=== PATIENT | female | born 2000 | race Caucasian/White ===

== ENCOUNTER 2023-02-09 06:51 | Outpatient (OUT) | payer BC, SELFPAY ==
--- NOTE | 2023-02-09 | US_ITS ---
The [address] [address] Patient Name: DANELLE MISTRY MRN: [id number] date: 2000 Sex: F Assigned Patient Location: US Current Patient Location: US Accession/Order Number: [id number] Exam Date: 02/09/2023 07:02 Report Date: 02/09/2023 12:15 At the request of: Rebecca FOURNIER Procedure: US renal BI EXAM: US renal BI HISTORY: N20.0. History of renal calculi. COMPARISON: None. TECHNIQUE: Ultrasound study of the kidneys was performed. FINDINGS: Right kidney measures 10.7 x 3.9 x 4.3 cm, left kidney measures 11.2 x 4.3 x 4.4 cm in longitudinal, transverse, and AP dimensions. Renal cortical thickness appears grossly unremarkable bilaterally, measuring 1.2 cm in thickness on the right and 1.4 cm in thickness on the left. No obvious solid or cystic renal mass. No evidence of hydronephrosis to suggest obstructive uropathy. Within the inferior aspect of the right kidney there is a 0.5 x 0.3 x 0.3 cm area of increased echogenicity likely representing a nonobstructive calculus. Bladder appears grossly unremarkable without a calculus, mass, or significant wall thickening. US/US renal BI IMPRESSION: Findings compatible with nonobstructive right renal calculus as noted. Electronically authenticated by: DAYANNA ALONZO Date: 02/09/2023 12:15
== END 2023-02-09 06:52 | disposition home or self-care (01) ==
LOC: US 06:58
PROVIDERS: PCP Urology; Visit Provider Family Medicine
DX: N20.0 Calculus of kidney (principal)
CPT/HCPCS: 76775

== ENCOUNTER 2024-10-02 19:07 | Emergency (ER) | payer BC, SELFPAY ==
--- OUTSIDE RECORDS SUMMARY | 2024-09-21 16:00 | XMS_ITS | Encounter Summary ---
Author Organization [facility] Address [address] [facility] [place] [address] Care Team Providers Care Cook Manager Name Role Phone Franky Mcmillan Primary Care Provider [phone] Franky Mcmillan DO Unavailable [phone] Reason for Visit * Reason Comments Care Pt presents to discu ss Anxiety/depression. Pt states when she is away from baby will be anxious. Pt will become tearful randomly. No thoughts of hurting herself or others. Pt currently on Zoloft for anxiety/depression. Pt states getting some sleep. Encounter Details Date Type Department Care Team (Late st Contact Info) Description 09/21/2024 4:00 PM EDT Visit ADINJesica Irving[place]emilie FELICIANO [address] [place] [phone] Mandy Patel DO [address] [facility] [place] [address] anxiety ([facility]) (Primary Dx); Acute vulvitis Social History Tobacco Use Types Packs/Day Years Used Date Smoking Tobacco: Never Passive Smoke Exposure: Never Smokeless Tobacco: Never Alcohol Use Standard Drinks/Week Comments Not Currently 0 (1 standard drink = 0.6 oz pure alcohol) Caffeine intake: 1 cup coffee/daily B1300 Health Literacy Answer Date Recor ded How often do you need to hav e someone help you when you read instructions, pamphlets, or other written material from your doctor or pharmacy? Never 10/19/2023 Humiliation, Afraid, Rape, and Kick questionnair e Answer Date Recorded Within the last year, have y ou been afraid of your partner or ex-partner? No 07/29/2022 Within the last year, have y ou been humiliated or emotionally abused in other ways by your partner or ex-partner? No Within the last year, have y ou been kicked, hit, slapped, or otherwise physically hurt by your partner or ex-partner? No 07/29/2022 Within the last year, have y ou been raped or forced to have any kind of sexual activity by your partner or ex-partner? No 07/29/2022 Social Connection and Isolat ion Panel [NHANES] Answer Date Recorded In a typical week, how many times do you talk on the phone with family, friends, or neighbors? Twice a week 10/19/2023 How often do you get togethe r with friends or relatives? Once a week 10/19/2023 How often do you attend chur or mosque services? More than 4 times per year 10/19/2023 Do you belong to any clubs o r organizations such as christian groups, unions, fraternal or athletic groups, or school groups? No 10/19/2023 How often do you attend meet ings of the clubs or organizations you belong to? Patient declined 10/19/2023 Are you , , di vorced, , never , or living with a partner? 10/19/2023 AUDIT-C Answer Date Recorded Q1: How often do you have a drink containing alc ohol? Monthly or less 10/19/2023 Q2: How many drinks containi ng alcohol do you have on a typical day when you are drinking? 1 or 2 10/19/2023 Q3: How often do you have si x or more drinks on one occasion? Never 10/19/2023 Overall Financial Resource Strain (CARDIA) Answe r Date Recorded How hard is it for you to pa y for the very basics like food, housing, medical care, and heating? Not very hard 10/19/2023 PHQ-2 Answer Date Recorded Patient Health Questionnaire-2 Score 0 05/08/2024 [facility]ational Stress Questionnaire Answer Date Recorded Do you feel stress - tense, restless, nervous, or anxious, or unable to sleep at night because your mind is troubled all the time - these days? Very much 10/19/2023 Exercise Vital Sign Answer Date Recorde d On average, how many days pe r week do you engage in moderate to strenuous exercise (like a brisk walk)? 2 days 10/19/2023 On average, how many minutes do you engage in exercise at this level? 20 min 10/19/2023 Hunger Vital Sign Answer Date Recorded Within the past 12 months, y ou worried that your food would run out before you got the money to buy more. Never true 10/19/19 24 Within the past 12 months, t he food you bought just didn't last and you didn't have money to get more. Never true 10/19/2023 PRAPARE - Transportation Answer Date Re corded In the past 12 months, has l ack of transportation kept you from medical appointments or from getting medications? No 04/2023 In the past 12 months, has l ack of transportation kept you from meetings, work, or from getting things needed for daily living? No 10/19/2023 Housing Stability Vital Sign Answer Ilan e Recorded In the last 12 months, was t here a time when you were not able to pay the mortgage or rent on time? No 07/29/2022 In the last 12 months, how many places have you lived? 1 07/29/2022 In the last 12 months, was t here a time when you did not have a steady place to sleep or slept in a retirement (including now)? No 07/29/2022 Housing Stability Vital Sign Answer Ilan e Recorded In the last 12 months, was t here a time when you were not able to pay the mortgage or rent on time? No 10/19/2023 In the past 12 months, how m any times have you moved where you were living? 0 10/19/2023 At any time in the past 12 m [facility], were you homeless or living in a retirement (including now)? No 10/19/2023 Comments No Sex and Gender Information Value Date Recorded Sex Assigned at Not on file Legal Sex Female 11:08 PM EDT Gender Identity Not on file Sexual Orientation Not on file documented as of this encounter Last Filed Vital Signs Vital Sign Reading Time Taken Comments Blood Pressure 124/74 09/21/2024 4:03 PM EDT Pulse - - Temperature - - Respiratory Rate - - Oxygen Saturation - - Inhaled Oxygen Concentration - - Weight 84.8 kg (187 lb) 09/21/2024 4:03 PM EDT Height - - Body Mass Index 32.1 05/08/2024 11:30 AM EDT documented in this encounter Progress Notes * Mandy Patel DO - 09/21/2024 4:00 PM EDT Images from the original note were not included. Mandy Patel D.O. Obstetrics and Gynecology Patient: Carmelita Guido : 2000 (24 y.o.) Exam Date: 09/21/2024 Reason for Visit - Chief Complaint Patient presents with Care Pt presents to discuss Anxiety/depression. Pt states when she is away from baby will be anxious. Pt will become tearful randomly. No thoughts of hurting herself or others. Pt currently on Zoloft for anxiety/depression. Pt states getting some sleep. Visit Vitals BP 124/74 Wt 187 lb LMP 12/12/2023 Yes BMI 32.10 kg/m?? OB Status Recent Smoking Status Never BSA 1.96 m?? Allergies Allergen Reactions Zinc Hives Bacid Dairy Other Reaction(s): Bowel problem History of Present Illness, Associated Treatments and Results - OB History Para Term AB Living 2 1 1 0 1 1 SAB IAB Ectopic Multiple Live Births 1 0 0 0 1 # Outcome Date GA Lbr Félix/2nd Weight Sex Type Anes PTL Lv 2 Term 09/09/24 38w6d 7 lb 3 oz M Vag-Spont EPI MANDY 1 2023 Obstetric Comments Pap smear 03/07/24 wnl Review of Systems - Const: Denies appetite change, fever, chills. Allergy: Denies medication reaction. Ocular: Denies visual acuity change. ENT: Denies hearing change. Endoc: Denies weight loss. Resp: Denies dyspnoea, wheezing. Cardiac: Denies angina, palpitations. GI: Denies nausea, vomiting. Haem: Denies bleeding. : Denies incontinence. MSK: Denies arthralgias, joint oedema. Derm: Denies rash, hair loss. Neuro: Denies ataxia, tremor. Also see HPI for elements of ROS documented therein and for details of positive findings, which shall supersede the foregoing. Medication Documentation Review Audit Reviewed by Patti Romeo MA (Licensed Practical Nurse) on 09/21/24 at 1600 Medication Order Taking? Sig Documenting Provider Last Dose Status Discontinued 09/21/24 1600 cyanocobalamin (Vitamin B-12) 100 MCG tablet [id number] Take 100 mcg by mouth Daily Mandy Patel DO Active ferrous sulfate 325 (65 Fe) MG tablet [id number] Take 325 mg by mouth in the morning. Take with meals. Active metFORMIN (Glucophage) 500 MG tablet [id number] TAKE ONE TABLET BY MOUTH THREE TIMES A DAY WITH A MEAL Mandy Patel DO Active Vit w/Ax-Sbdscvhcq-FA (PNV PO) [id number] No Take by mouth Mandy Patel DO Taking Active sertraline (Zoloft) 25 MG tablet [id number] Take 1 tablet (25 mg) by mouth Daily Franky Mcmillan, Active Past Medical History: Diagnosis Date Anemia Anxiety Female infertility IBS (irritable bowel syndrome) Leucocytosis Ovarian cyst PMDD (premenstrual dysphoric disorder) Polycystic ovary syndrome Past Surgical History: Procedure Laterality Date COLONOSCOPY VAGINAL DELIVERY 09/09/2024 Family History Problem Relation Name Age of Onset Hypertension Mother Елена Polycystic ovary syndrome Mother Елена Depression Mother Елена Miscarriages / Stillbirths Mother Елена Hyperlipidemia Father Jair Hypertension Father Jair Colon cancer Paternal Grandmother Diabetes Paternal Grandfather Wild Physical Exam - General appearance, mentation, extraocular movements, facial strength and movement, hearing, upper and lower extremity strength and tone, sensation to gross testing, coordination, and gait are normalor at baseline unless noted below. General: Alert, cooperative, no distress, appears stated age Head: Normocephalic, without obvious abnormality, atraumatic Eyes: sclera anicteric Ears: no obvious hearing deficit Skin: Warm and dry Heart: Regular rate Lungs: Respirations unlabored Extremities normal, atraumatic, no cyanosis or edema Diagnoses and all orders for this visit: anxiety ([facility]) - sertraline (Zoloft) 50 MG tablet; Take 1 tablet (50 mg) by mouth Daily Acute vulvitis - nystatin-triamcinolone (Mycolog II) ointment; Apply topically in the morning and before bedtime. Do all this for 7 days. Patient has been taking 25mg of Zoloft- does not help as well anymore. Will increase to 50mg. Patient is also having itching of the vulva- discussed yeast/contact dermatitis with pads. Will send Mycolog. Patient to call with any further questions/concerns. To return in 4 weeks for visit. ICD-10-CM 1. anxiety ([facility]) O99.345 sertraline (Zoloft) 50 MG tablet F41.8 2. Acute vulvitis N76.2 nystatin-triamcinolone (Mycolog II) ointment documented in this encounter Plan of Treatment Upcoming Encounters Date Type Department Care Team (Late st Contact Info) Description 10/19/2024 10:15 AM EDT Visit [facility] [place] [facility] [address] [place] [phone] Mandy Patel DO [address] [place] [address] documented as of this encounter Visit Diagnoses Diagnosis anxiety ([facility])- Primary Acute vulvitis Unspecified vaginitis and vulvovaginitis documented in this encounter Care Teams Cook Manager Relationship Specialty Start Date End Date Franky Mcmillan DO [address] [place] [address] PCP - General Family Medicine 07/16/22 Franky Mcmillan DO [address] [place] [address] PCP - Anselmo Commercial 05/16/21 documented as of this encounter
[2024-10-02 19:19] VITALS: BP 134/92; PULSE 82; TEMP 37; O2SAT 96; BMI 32.4
--- NOTE | 2024-10-02 19:38 | CT_ITS ---
The [address] [address] Patient Name: DANELLE MISTRY MRN: [id number] date: 2000 Sex: F Assigned Patient Location: ER Current Patient Location: ED.MAIN Accession/Order Number: [id number] Exam Date: 10/02/2024 20:06 Report Date: 10/02/2024 20:11 At the request of: DELROY HDEZ Procedure: CT abdomen pelvis wo con CT Abdomen and Pelvis withoutcontrast TECHNIQUE: Axial imaging with 2-D reconstruction. . The CT exam was performed using one or more the following dose reduction techniques: Automated exposure control, adjustment of the MA and/or Kv according to patient size, or use of the iterative reconstruction technique. COMPARISON: None History: Right flank pain for 3 weeks . LIMITATIONS: None LOWER THORAX Unremarkable LIVER: Unremarkable GALLBLADDER: No gallbladder abnormality identified. BILE DUCTS: No dilatation SPLEEN: Unremarkable PANCREAS: Unremarkable ADRENAL GLANDS: Unremarkable KIDNEYS:8 x 6 mm proximal right ureteral stone. Moderate hydronephrosis. Normal left kidney. AORTA: No abdominal aortic aneurysm identified. RETROPERITONEUM: No significant retroperitoneal abnormalities identified. MESENTERY:Unremarkable STOMACH:Unremarkable SMALL BOWEL: The small bowel loops are nondistended. APPENDIX: No appendiceal dilatation. No no adjacent inflammation. Distal appendicolith. COLON: Unremarkable URINARY BLADDER: Urinary bladder is unremarkable. REPRODUCTIVE SYSTEM: Reproductive structures are unremarkable. PNEUMOPERITONEUM: None PERITONEAL FLUID:None BONY STRUCTURES: Unremarkable ABDOMINAL WALL: Unremarkable CT/CT abdomen pelvis wo con IMPRESSION: Obstructing 8 x 6 mm proximal right ureteral stone with moderate hydronephrosis. Impression dictated by: Iftikhar Gibson M.D. 10/02/2024 8:11 PM Dictation Location: [employer] Electronically authenticated by: [id number] Y Date: 10/02/2024 20:11
--- OUTSIDE RECORDS SUMMARY | 2024-10-02 19:41 | XMS_ITS | Encounter Summary ---
Author Organization [facility] Address [address] [place] [address] Care Team Providers Care Filling Machine Operator Name Role Phone Franky Mcmillan DO Primary Care Provider [phone] Franky Mcmillan DO Unavailable [phone] Encounter Details Date Type Department Care Team (Late st Contact Info) Description 09/29/2024 Abstract [facility] [place] [facility] [address] [place] [phone] Franky Mcmillan DO [address] [place] [address] Social History Tobacco Use Types Packs/Day Years [...] How often do you attend chur or druze services? More than 4 times per year 10/19/2023 Do you belong to any clubs o r organizations such as rastafari groups, unions, fraternal or athletic groups, or [...] Recorded Patient Health Questionnaire-2 Score 0 05/08/2024 [facility] - Occupational Stress Questionnaire Answer [...] place to sleep or slept in a care home (including now)? No 07/29/2022 Housing Stability Vital Sign Answer Ilan e Recorded In the last 12 months, was t here a time when you were not able to pay the mortgage or rent on time? No 10/19/2023 In the past 12 months, how m any times have you moved where you were living? 0 10/19/2023 At any time in the past 12 m onths, were you homeless or living in a care home (including now)? No 10/19/2023 Comments No Sex and Gender Information Value Date Recorded Sex Assigned at Not on file Legal Sex Female 11:08 PM EDT Gender Identity Not on file Sexual Orientation Not on file documented as of this encounter Plan of Treatment Upcoming Encounters Date Type Department Care Team (Late st Contact Info) Description 10/19/2024 10:15 AM EDT Visit [facility] [place] [facility] [address] [place] [address] Mandy Patel DO [address] [place] [address] documented as of this encounter Visit Diagnoses Not on filedocumented in this encounter Care Teams Filling Machine Operator Relationship Specialty Start Date End Date Franky Mcmillan DO [address] [facility] [address] [place] [address] PCP - General Family Medicine 07/16/22 Franky Mcmillan DO [address] [facility] [address] [place] [address] PCP - Anselmo Mcneill 05/16/21 documented as of this encounter
--- OUTSIDE RECORDS SUMMARY | 2024-10-02 19:41 | XMS_ITS | Clinical Summary ---
Author Organization [facility] Address [address] [place] [address] Care Team Providers Care Recreation Program Specialist Name Role Phone Unavailable Primary Care Provider Unavailabl e Allergies No known active allergies Medications metFORMIN (GLUCOPHAGE) 500 mg tablet One tablet three times daily with meals. 11/18/2022 Active sertraline (ZOLOFT) 25 mg tablet Take 25 mg by mouth. 11/16/2023 Active ferrous sulfate (IRON) 325 mg (65 mg iron) tablet Take 1 tablet by mouth two times a day. 01/21/2024 Active Scoauksd-Jd-Mfq- Fe-FA tab Take 1 tablet by mouth once daily. 01/21/2024 Active Active Problems Problem Noted Date Diagnosed Date Obesity, Class I, BMI 30-34.9 12/14/2023 Comments Yes Family History Medical History Relation Comments Colon Cancer Paternal Grandfather Relation Status Comments Paternal Grandfather Social History Tobacco Use Types Packs/Day Years Used Date Smoking Tobacco: Never Smokeless Tobacco: Never Tobacco Cessation:Counseling Given: Not Answered Area Deprivation Index Answer Date Rodolfo rded National Score (1-100), lower number is lower ri sk 53 12/13/2023 State Score (1-10), lower number is lower risk 3 12/13/2023 Data from: https://www.neighborhoodatlas.medicine.[facility].edu/. Last address used for calculation [address] 12/13/2023 Comments Yes Sex and Gender Information Value Date Recorded Sex Assigned at Not on file Legal Sex Female 2:39 PM EDT Gender Identity Not on file Sexual Orientation Not on file Last Filed Vital Signs Vital Sign Reading Time Taken Comments Blood Pressure 139/95 12/13/2023 1:56 PM EDT Pulse - - Temperature - - Respiratory Rate - - Oxygen Saturation - - Inhaled Oxygen Concentration - - Weight 80.7 kg (178 lb) 12/21/2023 10:44 AM EST Height 160 cm (5' 3 ) 12/21/2023 10:44 AM EST Body Mass Index 31.53 12/21/2023 10:44 AM EST Plan of Treatment Health Maintenance Due Date Last Done Comments Peds To Adult Transition Ini tial Discussion 2011 Peds To Adult Transition Aurea ual Assessment 05/19/2013 HPV Vaccine (1 - 3-dose series) 05/19/2014 Anxiety Screening 05/19/2017 Depression Screening 05/19/2017 Cervical Cancer Screening 05/19/2020 DTaP,Tdap,Td Vaccine (7 - Td or Tdap) 09/17/2021 09/18/2011, 08/21/2004, 06/17/2000, Additional history exists Influenza Vaccine (#1) 2024 8, 02/04/2009, 02/04/2009, Additional history exists RSV Vaccine (1 - 1-dose 75+ series) 05/19/2074 Hepatitis B Vaccine Completed 2000, 1999, 1999 HIV Screening Completed 12/13/2023 Hepatitis C Screening Completed 12/13/2023 Procedures Procedure Name Priority Date/Time Associated Diagnosis Comments HIV 1/2 COMBO WITH REFLEX TO DIFFERENTIATION Routine 12/13/2023 2:46 PM EDT Encounter of female for testing for genetic disease carrier status for procreative management HEPATITIS C ANTIBODY IA WITH CONFIRMATION Routine 12/13/2023 2:46 PM EDT Encounter of female for testing for genetic disease carrier status for procreative management from Last 3 Months or Most Recently Relevant to Health Maintenance Results * HIV 1/2 COMBO WITH REFLEX TO DIFFERENTIATION (12/13/2023 2:46 PM EDT) HIV 12 Combo (Ag/Ab) Nonreactive Nonreactive 12/14/2023 10:[address] [facility] HIV-1/2 AB (Confirmatory) 12/14/2023 10:[address] [facility] Comment:Test not indicated. HIV Interpretation 12/14/2023 10:[address] [facility] Comment: No evidence of HIV-1 or HIV-2 infection. Should recent infection be suspected, repeat testing may be considered 2-3 weeks after this draw. [place] Rev. Code 3701.243(E): This information has been disclosed to you from confidential records protected from disclosure by state law. You shall make no further disclosure of this information without the specific, written, and informed release of the individual to whom it pertains or as otherwise permitted by state law. A general authorization for the release of medical or other information is not sufficient for the purpose of the release of HIV test results or diagnoses. Blood BLOOD SPECIMEN / Unknown Venipuncture / Unknown 12/13/2023 2:46 PM EDT 12/13/2023 2:46 PM EDT us Marina Arthur MD LABORATORY Final Resu lt Performing Organization Address [facility]/ZIP Co de Phone Number [facility] [address] [place] [address], * HEPATITIS C ANTIBODY IA WITH CONFIRMATION (12/13/2023 2:46 PM EDT) Hep C Antibody IA Negative Negative 12/14/2023 10:[address] [facility] Comment:The result suggests no evidence of active infection with Hepatitis C virus. Should recent infection be suspected, repeat testing may be considered 4-6 weeks after this draw. Blood BLOOD SPECIMEN / Unknown Venipuncture / Unknown 12/13/2023 2:46 PM EDT 12/13/2023 2:46 PM EDT Marina Arthur MD LABORATORY Final Resu lt Performing Organization Address City/[facility]/ZIP Co de Phone Number [facility] [address] [place] [phone], from Last 3 Months or Most Recently Relevant to Health Maintenance Insurance BLUE CARD PPO OOS BLUE ACCESS PPO
--- OUTSIDE RECORDS SUMMARY | 2024-10-02 19:41 | XMS_ITS | Encounter Summary ---
Author Organization [facility] Address [address] [place] [address] Care Team Providers Care Blocker And Polisher Name Role Phone Unavailable Primary Care Provider Unavailabl e Source Comments In the event this information is protected by the Federal Confidentiality of Alcohol and Drug AbusePatient Records regulations: The Federal rules restrict any use of the information to criminally investigate or prosecute any alcohol or drug abuse patient.[facility] Encounter Details Date Type Department Care Team (Late st Contact Info) Description 01/21/2024 Patient Msg Reproductive Endocrinology Infertility [address] [place] [address] Sara Campbell, ANNA.TICKET MANAGER [address] [place] [address] Nausea Relief Social History Tobacco Use Types Packs/Day Years Used Date Smoking Tobacco: Never Smokeless Tobacco: Never Area Deprivation Index Answer Date Rodolfo rded National Score (1-100), lower number is lower ri sk 53 12/13/2023 State Score (1-10), lower number is lower risk 3 12/13/2023 Data from: https://www.neighborhoodatlas.medicine.[facility].edu/. Last address used for calculation [address] 12/13/2023 Comments No Sex and Gender Information Value Date Recorded Sex Assigned at Not on file Legal Sex Female 2:39 PM EDT Gender Identity Not on file Sexual Orientation Not on file documented as of this encounter Plan of Treatment Not on file documented as of this encounter Visit Diagnoses Not on filedocumented in this encounter
--- OUTSIDE RECORDS SUMMARY | 2024-10-02 19:41 | XMS_ITS | Encounter Summary ---
Author Organization [facility] Address [address] [place] [address] Care Team Providers Care Nozzle Operator Name Role Phone Franky Mcmillan DO Primary Care Provider [phone] Franky Mcmillan DO Unavailable [phone] Encounter Details Date Type Department Care Team (Late st Contact Info) Description 09/11/2024 Results Follow-Up ALEXANDRIA FELICIAON [address] [place] [phone] Corina Hernandez MD [address] [place] [address] Urine culture Social History Tobacco Use Types Packs/Day Years [...] How often do you attend chur or buddhism services? More than 4 times per year 10/19/2023 Do you belong to any clubs o r organizations such as jew groups, unions, fraternal or athletic groups, or [...] Recorded Patient Health Questionnaire-2 Score 0 05/08/2024 [facility] - Occupational Stress [...] any time in the past 12 m [facility], were you homeless or living in a care home (including now)? No 10/19/2023 Comments Yes Sex and Gender Information Value [...] FELICIANO [address] [place] [address] Mandy Patel DO [address] [place] [address] documented as of this encounter Visit Diagnoses Not on filedocumented in this encounter Care Teams Nozzle Operator Relationship Specialty Start Date End Date Franky Mcmillan DO [address] [place] [address] PCP - General Family Medicine 07/16/22 Franky Mcmillan DO [address] [facility] [address] [place] [address] PCP - Anselmo Mcneill 05/16/21 documented as of this encounter
--- OUTSIDE RECORDS SUMMARY | 2024-10-02 19:41 | XMS_ITS | Encounter Summary ---
Author Organization [facility] Address [address] [place] [address] Care Team Providers Care Day Worker Name Role Phone Franky Mcmillan DO Primary Care Provider [phone] Franky Mcmillan DO Unavailable [phone] Encounter Details Date Type Department Care Team (Late st Contact Info) Description 02/23/2024 Abstract [facility] [address] [place] [address] Franky Mcmillan DO [address] [place] [address] Social History Tobacco Use Types Packs/Day Years [...] How often do you attend chur or sikhism services? More than 4 times per year 10/19/2023 Do you belong to any clubs o r organizations such as latter-day groups, unions, fraternal or athletic groups, or [...] Answer Date Recorded Patient Health Questionnaire-2 Score 2 10/20/2023 [facility] - Occupational [...] place to sleep or slept in a fdc (including now)? No 07/29/2022 Housing Stability Vital [...] were you homeless or living in a fdc (including now)? No 10/19/2023 Comments Yes Sex [...] FELICIANO [address] [place] [address] Mandy Patel DO [address] [place] [address] documented as of this encounter Visit Diagnoses Not on filedocumented in this encounter Care Teams Day Worker Relationship Specialty Start Date End Date Franky Mcmilaln DO [address] [facility] [address] [place] [address] PCP - General Family Medicine 07/16/22 Franky Mcmillan DO [address] [facility] [address] [place] [address] PCP - Anselmo Mcneill 05/16/21 documented as of this encounter
--- OUTSIDE RECORDS SUMMARY | 2024-10-02 19:41 | XMS_ITS | Encounter Summary ---
Author Organization [facility] Address [address] [place] [address] Care Team Providers Care Swine Nutritionist Name Role Phone Unavailable Primary Care Provider Unavailabl e Source Comments In the event this information is protected by the Federal Confidentiality of Alcohol and Drug AbusePatient Records regulations: The Federal rules restrict any use of the information to criminally investigate or prosecute any alcohol or drug abuse patient.[facility] Encounter Details Date Type Department Care Team (Latest Contact Info) Description 12/22/2023 Get Medical Advice Reproductive Endocrinology Infertility [address] [place] [address] [place] [address] [place], [place] [phone] Ultrasound and [facility] Social History Tobacco Use Types Packs/Day Years Used Date Smoking Tobacco: Never Smokeless Tobacco: Never Area Deprivation Index Answer Date Rodolfo rded National Score (1-100), lower number is lower ri sk 53 12/13/2023 State Score (1-10), lower number is lower risk 3 12/13/2023 Data from: https://www.neighborhoodatlas.medicine.[facility].edu/. Last address used for calculation [address] [...]
--- OUTSIDE RECORDS SUMMARY | 2024-10-02 19:41 | XMS_ITS | Encounter Summary ---
Author Organization [facility] Address [address] [place] [address] Care Team Providers Care Athletic Equipment Manager Name Role Phone Franky Mcmillan DO Primary Care Provider [phone] Franky Mcmillan DO Unavailable [phone] Encounter Details Date Type Department Care Team (Late st Contact Info) Description 09/29/2024 [facility] [address] [place] [address] Franky Mcmillan DO [address] [place] [address] Social History Tobacco Use Types Packs/Day Years [...] How often do you attend chur or zoroastrianism services? More than 4 times per year 10/19/2023 Do you belong to any clubs o r organizations such as muslim groups, unions, fraternal or athletic groups, or [...] Recorded Patient Health Questionnaire-2 Score 0 05/08/2024 [facility] Occup[facility] ional Health - Occupational [...] place to sleep or slept in a chcf (including now)? No 07/29/2022 Housing Stability Vital Sign Answer Ilna e Recorded In the last 12 months, was t here a time when you were not able to pay the mortgage or rent on time? No 10/19/2023 In the past 12 months, how m any times have you moved where you were living? 0 10/19/2023 At any time in the past 12 m onths, were you homeless or living in a chcf (including now)? No 10/19/2023 Comments No Sex [...] FELICIANO [address] [place] [address] Mandy Patel DO [address] [place] [address] documented as of this encounter Visit Diagnoses Not on filedocumented in this encounter Care Teams Athletic Equipment Manager Relationship Specialty Start Date End Date Franky Mcmillan DO [address] [facility] [address] [place] [address] PCP - General Family Medicine 07/16/22 Franky Mcmillan DO [address] [facility] [address] [place] [address] PCP - Anselmo Mcneill 05/16/21 documented as of this encounter
--- OUTSIDE RECORDS SUMMARY | 2024-10-02 19:41 | XMS_ITS | Encounter Summary ---
Author Organization [facility] Address [address] [place] [address] Care Team Providers Care County Extension Agent Name Role Phone Franky Mcmillan DO Primary Care Provider [phone] Franky Mcmillan DO Unavailable [phone] Encounter Details Date Type Department Care Team (Late st Contact Info) Description 07/02/2024 External Result Encounter [facility] External Department Unsolicited Corina Hernandez MD [address] [place] [address] Social History Tobacco Use Types Packs/Day Years [...] How often do you attend chur or rastafari services? More than 4 times per year 10/19/2023 Do you belong to any clubs o r organizations such as moravian groups, unions, fraternal or athletic groups, or [...] Recorded Patient Health Questionnaire-2 Score 0 05/08/2024 [facility] ional [facility] - [...] place to sleep or slept in a senior care (including now)? No 07/29/2022 Housing Stability Vital Sign Answer Ilan e Recorded In the last 12 months, was t here a time when you were not able to pay the mortgage or rent on time? No 10/19/2023 In the past 12 months, how m any times have you moved where you were living? 0 10/19/2023 At any time in the past 12 m ont, were you homeless or living in a senior care (including now)? No 10/19/2023 Comments Yes Sex [...] FELICIANO [address] [place] [address] Mandy Patel DO [address] [place] [address] documented as of this encounter Procedures Procedure Name Priority Date/Time Associated Diagnosis Comments US ABDOMEN LIMITED 07/02/2024 9: 58 AM EDT documented in this encounter Results * US abdomen limited (07/02/2024 9:58 AM EDT) Anatomical Region Laterality Modality Abdomen Ultrasound 07/02/2024 9:58 AM EDT Impressions 07/02/2024 10:01 AM EDT Unremarkable exam Impression dictated by: Iftikhar Gibson M.D. 07/02/2024 9:58 AM Dictation Location: [facility] Tech: Margie Charles Transcribed By: GLORIA 07/02/24957 Dictated By: Iftikhar Gibson DO 07/02/2458 Signed By: <Electronically signed by Iftikhar Gibson DO in OV> 07/02/24 0958 Narrative 07/02/2024 10:01 AM EDT [facility] Main [address] [address] Ultrasound Report Signed Patient: Carmelita Guido MR#: [id number] 64 : 2000 Acct:[id number] Age/Sex: 24 / F ADM Date: 07/01/24 Loc: E3 Room: Type: [facility] Attending Dr: Corina Hernandez MD Ordering Provider: MINNA Santillan Date of Service: 07/01/24 US/US abdomen limited: right upper abdominal pain Copies to: MINNA Santillan LIMITED ABDOMINAL ULTRASOUND WITH ASSESSMENT OF RIGHT UPPER QUADRANT HISTORY: Right upper quadrant pain. COMPARISON: None Negative ultrasound Cardoso's sign reported. COMMON BILE DUCT: Normal caliber. No intraluminal abnormality. LIVER CONTOUR: Normal. LIVER PARENCHYMA: Normal echogenicity HEPATIC LESION: None INTRAHEPATIC BILIARY DUCTAL DILATATION No ductal dilatation identified. GALLSTONES: No shadowing gallstones. GALLBLADDER SLUDGE: No gallbladder sludge. GALLBLADDER WALL: Normal thickness PERICHOLECYSTIC FLUID: None Pancreas: Unremarkable PORTAL VEIN: Normal blood flow. Liver size: Normal No RIGHT hydronephrosis identified. US/US abdomen limited Procedure Note Radiology, Radiologist, - 07/02/2024 [facility] [address] [address] Ultrasound Report Signed Patient: Carmelita Guido RMR#: [id number] 64 : 2000Acct:[id number] Age/Sex: 24 FADM Date: 07/01/24 Loc: E3 Room:Type: [facility] Attending Dr: Corina Hernandez MD Ordering Provider: Corina Hernandez MD-[facility] Date of Service: 07/01/24 US/US abdomen limited: right upper abdominalpain Copies to: Corina Hernandez MD-[facility] LIMITED ABDOMINAL ULTRASOUND WITH ASSESSMENT OF RIGHT UPPER QUADRANT HISTORY: Right upper quadrant pain. COMPARISON: None Negative ultrasound Cardoso's sign reported. COMMON BILE DUCT: Normal caliber. No intraluminal abnormality. LIVER CONTOUR: Normal. LIVER PARENCHYMA: Normal echogenicity HEPATIC LESION: None INTRAHEPATIC BILIARY DUCTAL DILATATION No ductal dilatation identified. GALLSTONES: No shadowing gallstones. GALLBLADDER SLUDGE: No gallbladder sludge. GALLBLADDER WALL: Normal thickness PERICHOLECYSTIC FLUID: None Pancreas: Unremarkable PORTAL VEIN: Normal blood flow. Liver size: Normal No RIGHT hydronephrosis identified. US/US abdomen limited IMPRESSION: Unremarkable exam Impression dictated by: Iftikhar Gibson M.D. 07/02/2024 9:58 AM Dictation Location: [place] [address] Tech: Margie Soto Transcribed By: GLORIA 07/02/24 0958 Dictated By: Iftikhar Gibson DO 07/02/24 0958 Signed By: <Electronically signed by Iftikhar Gibson DO in OV> 07/02/24 0958 us Corina Hernandez MD IMG US PROCEDURES Final Result documented in this encounter Visit Diagnoses Not on filedocumented in this encounter Care Teams County Extension Agent Relationship Specialty Start Date End Date Franky Mcmillan DO [address] [place] [address] PCP - General Family Medicine 07/16/22 Franky Mcmillan DO [address] [place] [address] PCP - [employer] 05/16/21 documented as of this encounter
--- OUTSIDE RECORDS SUMMARY | 2024-10-02 19:41 | XMS_ITS | Encounter Summary ---
Author Organization [facility] Address [address] [place] [address] Phone Care Team Providers Care Brand Representative Name Role Phone Marvin Bartlett MD Primary Care Provider [phone] Encounter Details Date Type Department Care Team (Late st Contact Info) Description 09/11/2024 [facility] [address] [facility] [place] [phone] Marvin Bartlett MD [address] [facility] [address] [facility] [place] [address] Social History Tobacco Use Types Packs/Day Years Used Date Smoking Tobacco: Never Assessed Comments Unknown Sex and Gender Information Value Date Recorded Sex Assigned at Not on file Legal Sex Female 10:19 AM EDT Gender Identity Not on file Sexual Orientation Not on file documented as of this encounter Plan of Treatment Not on file documented as of this encounter Visit Diagnoses Not on filedocumented in this encounter Care Teams Brand Representative Relationship Specialty Start Date End Date Marvin Bartlett MD [address] [facility] [place] [address] PCP - General Pediatrics 09/11/24 documented as of this encounter
--- OUTSIDE RECORDS SUMMARY | 2024-10-02 19:41 | XMS_ITS | Encounter Summary ---
Author Organization [facility] Address [address] [place] [address] Care Team Providers Care Area Counselor Name Role Phone Unavailable Primary Care Provider Unavailabl e Source Comments In the event this information is protected by the Federal Confidentiality of Alcohol and Drug AbusePatient Records regulations: The Federal rules restrict any use of the information to criminally investigate or prosecute any alcohol or drug abuse patient.[facility] Encounter Details Date Type Department Care Team (Late st Contact Info) Description 01/19/2024 Get Medical Advice Reproductive Endocrinology Infertility [address] [place] [address] Sara Campbell, ANNA.IT SECURITY ANALYST [address] [place] [address] Social History Tobacco Use Types Packs/Day Years Used Date Smoking Tobacco: Never Smokeless Tobacco: Never Area Deprivation Index Answer Date Rodolfo rded National Score (1-100), lower number is lower ri sk 53 12/13/2023 State Score (1-10), lower number is lower risk 3 12/13/2023 Data from: https://www.neighborhoodatlas.medicine.[facility].edu/. Last address used for calculation [address] 12/13/2023 Comments No Sex and Gender Information Value Date Recorded Sex Assigned at Not on file Legal Sex Female 2:39 PM EDT Gender Identity Not on file Sexual Orientation Not on file documented as of this encounter Plan of Treatment Not on file documented as of this encounter Visit Diagnoses Diagnosis Treatment plan provided- Primary documented in this encounter
--- OUTSIDE RECORDS SUMMARY | 2024-10-02 19:41 | XMS_ITS | Encounter Summary ---
Author Organization [facility] Address [facility] [place] [place] [address] Care Team Providers Care Flow Specialist Name Role Phone Unavailable Primary Care Provider Unavailabl e Source Comments In the event this information is protected by the Federal Confidentiality of Alcohol and Drug AbusePatient Records regulations: The Federal rules restrict any use of the information to criminally investigate or prosecute any alcohol or drug abuse patient.[facility] Encounter Details Date Type Department Care Team (Late st Contact Info) Description 09/14/2023 [place] [address] Provider, [facility] Welcome to the [facility] Social History Tobacco Use Types Packs/Day Years [...]
--- OUTSIDE RECORDS SUMMARY | 2024-10-02 19:41 | XMS_ITS | Encounter Summary ---
Author Organization [facility] Address [address] [place] [address] Care Team Providers Care Wireless Technician Name Role Phone Franky Mcmillan DO Primary Care Provider [phone] Franky Mcmillan DO Unavailable [phone] Encounter Details Date Type Department Care Team (Late st Contact Info) Description 09/16/2023 External Result Encounter [facility] External Department Unsolicited Mandy Patel DO [address] [place] [address] Social History Tobacco Use Types Packs/Day Years Used Date Smoking Tobacco: Never Passive Smoke Exposure: Never Smokeless Tobacco: Never Alcohol Use Standard Drinks/Week Comments Not Currently 0 (1 standard drink = 0.6 oz pur e alcohol) Caffeine intake: none Humiliation, Afraid, Rape, and Kick questionnair e [...] family, friends, or neighbors? Twice a week 07/29/2022 How often do you get togethe r with friends or relatives? Twice a week 07/29/2022 How often do you attend chur or episcopalian services? More than 4 times per year 07/29/2022 Do you belong to any clubs o r organizations such as christianity groups, unions, fraternal or athletic groups, or school groups? Yes 07/29/2022 How often do you attend meet ings of the clubs or organizations you belong to? More than 4 times per year 07/29/2022 Are you , , di vorced, , never , or living with a partner? 07/29/2022 AUDIT-C Answer Date Recorded Q1: How often do you have a drink containing alc ohol? Monthly or less 07/29/2022 Q2: How many drinks containi ng alcohol do you have on a typical day when you are drinking? 1 or 2 07/29/2022 Q3: How often do you have si x or more drinks on one occasion? Never 07/29/2022 Overall Financial Resource Strain (CARDIA) Answe r Date Recorded How hard is it for you to pa y for the very basics like food, housing, medical care, and heating? Not hard at all 07/29/2022 PHQ-2 Answer Date Recorded Patient Health Questionnaire-2 Score 0 03/11/2023 [facility]ational Stress Questionnaire Answer Date Recorded Do you feel stress - tense, restless, nervous, or anxious, or unable to sleep at night because your mind is troubled all the time - these days? To some extent 07/29/2022 Exercise Vital Sign Answer Date Recorde d On average, how many days pe r week do you engage in moderate to strenuous exercise (like a brisk walk)? 2 days On average, how many minutes do you engage in exercise at this level? Patient declined 07/29/2022 Hunger Vital Sign Answer Date Recorded Within the past 12 months, y ou worried that your food would run out before you got the money to buy more. Never true 07/30/19 23 Within the past 12 months, t he food you bought just didn't last and you didn't have money to get more. Never true 07/29/2022 PRAPARE - Transportation Answer Date Re corded In the past 12 months, has l ack of transportation kept you from medical appointments or from getting medications? No 07/16 In the past 12 months, has l ack of transportation kept you from meetings, work, or from getting things needed for daily living? No 07/29/2022 Housing Stability Vital Sign Answer [...] place to sleep or slept in a group home (including now)? No 07/29/2022 Comments Unknown Sex and Gender Information Value Date Recorded Sex Assigned at Not on file Legal Sex Female 11:08 PM EDT Gender Identity Not on file Sexual Orientation Not on file documented as of this encounter Plan of Treatment Upcoming Encounters Date Type Department Care Team (Late st Contact Info) Description 10/19/2024 10:15 AM EDT Visit ALEXANDRIA FELICIANO [address] [place] [phone] Mandy Patel DO [address] [place] [address] documented as of this encounter Procedures Procedure Name Priority Date/Time Associated Diagnosis Comments XR HYSTEROSALPINGOGRAM 11:56 AM EDT documented in this encounter Results * XR hysterosalpingogram (09/16/2023 11:56 AM EDT) Anatomical Region Laterality Modality Uterus Radiographic Génesis ging 09/16/2023 11:5 6 AM EDT Narrative 09/16/2023 12:01 PM EDT [facility] Main [address] [address] Fluoroscopy Report Signed Patient: Carmelita Guido MR#: [id number] 64 : 2000 Acct:[id number] Age/Sex: 23 / F ADM Date: 09/16/23 Loc: XD Room: Type: [facility] Attending Dr: Mandy Patel DO Copies to: Mandy Patel DO Ordering Provider: Mandy Patel DO Date of Service: 09/16/23 FL/FL hysterosalpingography: N97.0 Hysterosalpingogram. Reason for exam: Fertility testing. Comparison: None. FINDINGS: Examination was performed by the POSTAL DELIVERY OFFICER service. No radiologist was present at time of procedure. Uterus configuration is normal. There is opacification of both fallopian tubes with what appears to be spillage into the peritoneum. Cumulative Air Kerma in mGy: 20.23 mGy FL/FL hysterosalpingography Impression: Unremarkable HSG. Impression dictated by: Jayy Rose Jr., D.OAdriana09/16/2023 11:58 AM Dictation Location: [place] [address] Transcribed By: [facility] 09/16/23 1158 Dictated By: Jayy Rose Jr, DO 09/16/23 1156 Signed By: <Electronically signed by Jayy Rose Jr, DO in OV> 09/16/23 1158 Procedure Note Radiology, Radiologist, - 09/16/2023 [facility] [place] [address] Fluoroscopy Report Signed Patient: Carmelita Guido RMR#: [id number] 64 : 2000Acct:[id number] Age/Sex: 23 / FADM Date: 09/16/23 Loc: XD Room:Type: [facility] Attending Dr: Mandy Patel DO Copies to: Mandy Patel DO Ordering Provider: Mandy Patel DO Date of Service: 09/16/23 FL/FL hysterosalpingography: N97.0 Hysterosalpingogram. Reason for exam: Fertility testing. Comparison: None. FINDINGS: Examination was performed by the POSTAL DELIVERY OFFICER service. No radiologistwas present at time of procedure. Uterus configuration is normal. There is opacification of both fallopiantubes with what appears to be spillage into the peritoneum. Cumulative Air Kerma in mGy: 20.23 mGy FL/FL hysterosalpingography Impression: Unremarkable HSG. Impression dictated by: Jayy Rose Jr., D.O.09/16/2023 11:58 AM Dictation Location: [place] [address] Transcribed By: [facility] 09/16/23 1158 Dictated By: Jayy Rose Jr, DO 09/16/23 1156 Signed By: <Electronically signed by Jayy Rose Jr, DO inOV> 09/16/23 1158 Mandy Patel DO IMG XR PROCEDURES Final Res ult documented in this encounter Visit Diagnoses Not on filedocumented in this encounter Care Teams Wireless Technician Relationship Specialty Start Date End Date Franky Mcmillan DO [address] [place] [address] PCP - General Family Medicine 07/16/22 Franky Mcmillan DO [address] [place] [address] PCP - Anselmo Mcneill 05/16/21 documented as of this encounter
--- OUTSIDE RECORDS SUMMARY | 2024-10-02 19:41 | XMS_ITS | Encounter Summary ---
Author Organization [facility] Address [address] [place] [address] Care Team Providers Care Crop Grain Or Livestock Farmer Name Role Phone Franky Mcmillan DO Primary Care Provider [phone] Franky Mcmillan DO Unavailable [phone] Encounter Details Date Type Department Care Team (Late st Contact Info) Description 08/03/2024 Abstract [facility] [place] [facility] [address] [place] [phone] Franky Mcmillan DO [address] [place] [address] Social History Tobacco Use Types Packs/Day Years [...] How often do you attend chur or yarsanism services? More than 4 times per year 10/19/2023 Do you belong to any clubs o r organizations such as anglican groups, unions, fraternal or athletic groups, or [...] Recorded Patient Health Questionnaire-2 Score 0 05/08/2024 [facility] - Occupational [...] place to sleep or slept in a mcfp (including now)? No 07/29/2022 Housing Stability Vital [...] were you homeless or living in a mcfp (including now)? No 10/19/2023 Comments Yes Sex [...] FELICIANO [address] [place] [address] Mandy Patel DO [address] [place] [address] documented as of this encounter Visit Diagnoses Not on filedocumented in this encounter Care Teams Crop Grain Or Livestock Farmer Relationship Specialty Start Date End Date Franky Mcmillan DO [address] [facility] [address] [place] [address] PCP - General Family Medicine 07/16/22 Franky Mcmillan DO [address] [facility] [address] [place] [address] PCP - Anselmo Mcneill 05/16/21 documented as of this encounter
--- OUTSIDE RECORDS SUMMARY | 2024-10-02 19:41 | XMS_ITS | Encounter Summary ---
Author Organization [facility] Address [address] [place] [address] Care Team Providers Care Group Director Name Role Phone Franky Mcmillan DO Primary Care Provider [phone] Franky Mcmillan DO Unavailable [phone] Encounter Details Date Type Department Care Team (Late st Contact Info) Description 02/22/2023 Orders Only [facility] [place] [facility] [address] [place] [phone] A, Unknown Practice [address] [phone] Social History Tobacco Use Types Packs/Day Years [...] How often do you attend chur or church services? More than 4 times per year 07/29/2022 Do you belong to any clubs o r organizations such as druze groups, unions, fraternal or athletic groups, or [...] Date Recorded Patient Health Questionnaire-2 Score 0 07/29/2022 [facility] [...] in a mcfp (including now)? No 07/29/2022 Comments Unknown Sex [...] FELICIANO [address] [place] [phone] Mandy Patel DO [address] [place] [address] documented as of this encounter Procedures Procedure Name Priority Date/Time Associated Diagnosis Comments SCANNED LABS Routine 02/11/2023 10:29 AM EST documented in this encounter Results * SCANNED LABS (02/11/2023 10:29 AM EST) us Unknown Practice A LAB CHG PERFORMABLES Final Re sult documented in this encounter Visit Diagnoses Not on filedocumented in this encounter Care Teams Group Director Relationship Specialty Start Date End Date Franky Mcmillan DO [address] [place] [address] PCP - General Family Medicine 07/16/22 Franky Mcmillan DO [address] [place] [address] PCP - Anselmo Mcneill 05/16/21 documented as of this encounter
--- OUTSIDE RECORDS SUMMARY | 2024-10-02 19:41 | XMS_ITS | Encounter Summary ---
Author Organization [facility] Address [address] [facility] [place] [address] Care Team Providers Care Manager Bank Name Role Phone Franky Mcmillan DO Primary Care Provider Franky Mcmillan DO Unavailable [phone] Encounter Details Date Type Department Care Team (Late st Contact Info) Description 07/05/2024 Results Follow-Up [place] FELICIANO [address] [place] [phone] Corina Hernandez MD [address] [place] [address] US abdomen limited Social History Tobacco Use Types Packs/Day Years [...] How often do you attend chur or scientologist services? More than 4 times per year 10/19/2023 Do you belong to any clubs o r organizations such as oriental orthodox groups, unions, fraternal or athletic groups, or [...] Recorded Patient Health Questionnaire-2 Score 0 05/08/2024 [facility] - Occupational Stress [...] any time in the past 12 [facility], were you homeless or living in a [...] Info) Description 10/19/2024 10:15 AM EDT Visit [facility] [address] [place] [phone] Mandy Patel DO [address] [place] [address] documented as of this encounter Visit Diagnoses Not on filedocumented in this encounter Care Teams Manager Bank Relationship Specialty Start Date End Date Franky Mcmillan DO [address] [place] [address] PCP - General Family Medicine 07/16/22 Franky Mcmillan DO [address] [facility] [address] [place] [address] PCP - Anselmo Mcneill 05/16/21 documented as of this encounter
--- OUTSIDE RECORDS SUMMARY | 2024-10-02 19:41 | XMS_ITS | Encounter Summary ---
Author Organization [facility] Address [address] [place] [address] Care Team Providers Care Lozenge Maker Helper Name Role Phone Unavailable Primary Care Provider Unavailabl e Source Comments In the event this information is protected by the Federal Confidentiality of Alcohol and Drug AbusePatient Records regulations: The Federal rules restrict any use of the information to criminally investigate or prosecute any alcohol or drug abuse patient.[facility] Encounter Details Date Type Department Care Team (Latest Contact Info) Description 12/14/2023 Patient Msg Reproductive Endocrinology Infertility [address] [place] [address] [place] [address] [place], [place] [id number] Follow up and next steps Social History Tobacco Use Types Packs/Day Years Used Date Smoking Tobacco: Never Smokeless Tobacco: Never Area Deprivation Index Answer Date Rodolfo rded National Score (1-100), lower number is lower ri sk 53 12/13/2023 State Score (1-10), lower number is lower risk 3 12/13/2023 Data from: https://www.neighborhoodatlas.medicine.[facility].edu/. Last address used for calculation [address] 12/13/2023 Comments Unknown Sex and Gender Information Value Date Recorded Sex Assigned at Not on file Legal Sex Female 2:39 PM EDT Gender Identity Not on file Sexual Orientation Not on file documented as of this encounter Plan of Treatment Not on file documented as of this encounter Visit Diagnoses Not on filedocumented in this encounter
--- OUTSIDE RECORDS SUMMARY | 2024-10-02 19:41 | XMS_ITS | Encounter Summary ---
Author Organization [facility] Address [address] [place] [address] Care Team Providers Care Finger Buff Sewer Name Role Phone Franky Mcmillan DO Primary Care Provider [phone] Franky Mcmillan DO Unavailable Encounter Details Date Type Department Care Team (Late st Contact Info) Description 09/09/2022 Abstract [facility] [place] [facility] [address] [place] [phone] Mandy Patel DO [address] [place] [address] Social History Tobacco Use Types Packs/Day Years [...] 07/29/2022 How often do you attend chur ch or zoroastrian services? More than 4 times per year 07/29/2022 Do you belong to any clubs o r organizations such as worship groups, unions, fraternal or athletic groups, or [...] Recorded Patient Health Questionnaire-2 Score 0 07/29/2022 [facility] Questionnaire Answer Date Recorded [...] place to sleep or slept in a usp (including now)? No 07/29/2022 Comments Unknown Sex [...] [address] [place] [phone] Mandy Patel DO [address] [place] [address] documented as of this encounter Visit Diagnoses Not on filedocumented in this encounter Care Teams Finger Buff Sewer Relationship Specialty Start Date End Date Franky Mcmillan DO [address] [place] [address] PCP - General Family Medicine 07/16/22 Franky Mcmillan DO [address] [place] [address] PCP - [employer] 05/16/21 documented as of this encounter
--- OUTSIDE RECORDS SUMMARY | 2024-10-02 19:41 | XMS_ITS | Encounter Summary ---
Author Organization [facility] Address [address] [place] [address] Care Team Providers Care Stove Polisher Name Role Phone Franky Mcmillan DO Primary Care Provider [phone] Franky Mcmillan DO Unavailable [phone] Encounter Details Date Type Department Care Team (Latest Contact Info) Description 09/21/2024 Travel Social History Tobacco Use Types Packs/Day Years [...] 10/19/2023 How often do you attend chur ch or gnosticism services? More than 4 times per year 10/19/2023 Do you belong to any clubs o r organizations such as gnosticist groups, unions, fraternal or athletic groups, or [...] Recorded Patient Health Questionnaire-2 Score 0 05/08/2024 [facility] - Occupational [...] place to sleep or slept in a custodial (including now)? No 07/29/2022 Housing Stability Vital [...] were you homeless or living in a custodial (including now)? No 10/19/2023 Comments No Sex [...] FELICIANO [address] [place] [phone] Mandy Patel DO [address] [place] [address] documented as of this encounter Visit Diagnoses Not on filedocumented in this encounter Care Teams Stove Polisher Relationship Specialty Start Date End Date Franky Mcmillan DO [address] [place] [address] PCP - General Family Medicine 07/16/22 Franky Mcmillan DO [address] [place] [address] PCP - Anselmo Mcneill 05/16/21 documented as of this encounter
--- OUTSIDE RECORDS SUMMARY | 2024-10-02 19:41 | XMS_ITS | Clinical Summary ---
Author Organization [facility] Address [address] [place] [address] Care Team Providers Care Riveter Helper Name Role Phone Franky Mcmillan DO Primary Care Provider [phone] Franky Mcmillan DO Unavailable [phone] Allergies Active Allergy Reactions Criticality Noted Date Comments Bacid Low 03/11/2023 Dairy Other Reaction(s): Bowel problem Zinc Hives 03/11/2023 Medications Vit w/Fe-Methylfol- FA (PNV PO) Take by mouth Active metFORMIN (Glucophage) 500 MG tabletIndicatio ns:PCOS (polycystic ovarian syndrome) TAKE ONE TABLET BY MOUTH THREE TIMES A DAY WITH A MEAL 90 tablet 11 12/15/19 24 Active ferrous sulfate 325 (65 Fe) MG tablet Take 325 mg by mouth in the morning. Take with meals. Active cyanocobalamin (Vitamin B-12) 100 MCG tablet Take 100 mcg by mouth Daily Active sertraline (Zoloft) 50 MG tabletIndicatio ns: anxiety (HHS-HCC) Take 1 tablet (50 mg) by mouth Daily 90 tablet 3 09/22/19 25 026 Active BABY ASPIRIN PO Take by mouth 025 Discontinued sertraline (Zoloft) 25 MG tabletIndicatio ns:Depression, unspecified depression type,Mixed anxiety and depressive disorder Take 1 tablet (25 mg) by mouth Daily 30 tablet 3 08/29/19 25 025 Discontinued(In effective) nystatin-triamc inolone (Mycolog II) ointmentIndicat ions:Acute vulvitis Apply topically in the morning and before bedtime. Do all this for 7 days. 30 g 2 09/22/19 25 025 Active Problems Problem Noted Date Diagnosed Date Iron deficiency 10/20/2023 Leukocytosis 10/20/2023 Positive VANDANA (antinuclear antibody) 10/20/2023 Hydronephrosis with ureteral calculus 03/11/2023 Kidney stone 03/11/2023 Prediabetes 03/11/2023 Depression 03/11/2023 Hyperlipidemia 06/10/2020 Insomnia 03/19/2020 Mixed anxiety and depressive disorder 03/19/2020 Anxiety 02/21/2020 PMDD (premenstrual dysphoric disorder) Panic disorder 01/16/2020 Encounters Date Type Department Care Team Description 09/29/2024 Abstract [facility] [address] [place] [phone] Franky Mcmillan, 09/29/2024 Abstract [facility] [address] [place] [address] Franky Mcmillan, 09/21/2024 4:00 PM EDT Visit [facility] [address] [place] [address] Mandy Patel DO anxiety ([facility]) (Primary Dx); Acute vulvitis 09/21/2024 Travel 09/13/2024 Patient Outreach [facility] [address] [place] [address] Melodie Gamble LPN 09/12/2024 Telephone [facility] [address] [place] [address] Mandy Patel DO 09/11/2024 Results Follow-Up [facility] [address] [place] [phone] Corina Hernandez MD Urine culture 09/10/2024 External Result Encounter [facility] External Department Unsolicited Corina Hernandez MD 09/09/2024 Results Follow-Up [facility] [place] [address] [place] [address] Corina Hernandez MD OB URINE DRUG SCREEN (NO THC) 09/09/2024 External Result Encounter [facility] External Department Unsolicited Corina Hernandez MD 09/08/2024 External Result Encounter [facility] External Department Unsolicited Corina Hernandez MD 09/08/2024 External Result Encounter [facility] External Department Unsolicited Corina Hernandez MD 09/08/2024 External Result Encounter [facility] External Department Unsolicited Corina Hernandez MD 09/08/2024 External Result Encounter [facility] External Department Unsolicited Corina Hernandez MD 09/08/2024 External Result Encounter [facility] External Department Unsolicited Corina Hernandez MD 09/07/2024 2:00 PM EDT [facility]ine [facility] [address] [place] [address] Mandy Patel, DO 38 weeks gestation of ([facility]) 09/07/[address] [facility] [address] [place] [address] Mandy Patel, 09/07/2024 Travel 09/01/2024 External Result Encounter [facility] External Department Unsolicited Corina Hernandez MD 09/01/2024 External Result Encounter [facility] External Department Unsolicited Corina Hernandez MD 09/01/2024 External Result Encounter [facility] External Department Unsolicited Corina Hernandez MD 09/01/2024 External Result Encounter [facility] External Department Unsolicited Corina Hernandez MD 08/31/2024 1:30 PM EDT Routine [facility] [address] [place] [address] Mandy Patel, DO 37 weeks gestation of ([facility]) 08/31/2024 12:45 PM EDT Office Visit [facility] [address] [place] [address] 37 weeks gestation of ([facility]); Decreased movements in third trimester, single or unspecified fetus ([facility]) 08/31/2024 Bamboo flowsheet [facility] [place] [address] [place] [address] Rinkes Mandy E, DO 08/31/2024 Travel 08/29/2024 2:00 PM EDT Routine [facility] [address] [place] [address] Rinkes Mandy E, DO 37 weeks gestation of ([facility]) 08/29/2024 Bamboo flowsheet [facility] [place] [address] [place] [address] Rinpeggy Mandy E, DO 08/29/2024 Travel 08/28/2024 Refill [facility] [address] [place] [address] Franky Mcmillan, DO Depression, unspecified depression type ; Mixed anxiety and depressive disorder 08/25/2024 10:30 AM EDT Routine [facility] [place] [address] [place] [address] Rinpeggy Mandy E, DO 36 weeks gestation of ([facility]); screening for streptococcus B ([facility]) 08/25/2024 Bamboo flowsheet [facility] [address] [place] [phone] Rinpeggy Mandy E, DO 08/25/2024 Travel 08/08/2024 3:45 PM EDT Routine [facility] [address] [place] [address] Rinpeggy Mandy E, DO 34 weeks gestation of ([facility]) 08/08/2024 3:30 PM EDT Ancillary Procedure [facility] [address] [place] [address] related condition in third trimester ([facility]); History of miscarriage, currently , third trimester ([facility]); 34 weeks gestation of ([facility]) 08/08/2024 Travel 08/03/[address] [facility] [address] [place] [address] Franky Mcmillan, 08/02/[address] [facility] [address] [place] [address] Franky Mcmillan, DO Depression, unspecified depression type ; Mixed anxiety and depressive disorder 07/25/2024 1:45 PM EDT Routine [facility] [place] [address] [place] [address] Mandy Patel, DO 32 weeks gestation of ([facility]) 07/25/2024 Travel 07/11/2024 2:30 PM EDT Routine [facility] [address] [place] [address] Mandy Patel, DO 30 weeks gestation of ([facility]) 07/11/2024 Bamboo flowsheet [facility] [place] [address] [place] [address] Mandy Patel, DO 07/11/2024 Travel 07/05/2024 Results Follow-Up [facility] [place] [address] [place] [address] Corina Hernandez MD [facility] 07/04/2024 Telephone [facility] [place] [address] [place] [address] Mya Kothari RN 07/02/2024 External Result Encounter [facility] External Department Unsolicited Corina Hernandez MD 07/02/2024 External Result Encounter [facility] External Department Unsolicited Corina Hernandez MD from Last 3 Months Immunizations Immunization Administration Dates Next Due DTaP 08/21/2004, 1,06/17/2000,1999, 1999,1999,1999,1999, 1999 DTaP, 5 pertussis antigens 08/21/2004,,1999,1999, 1999 DTaP, Unspecified 06/17/2000,1999,10/02/19 00,1999 Hep A, Unspecified 03/21/2012,09/18/2011 Hep A, ped/adol, 2 dose 03/21/2012,09/18/2011 Hib (PRP-OMP) 2000,1999,1999 ,1999 Hib / Hep B 2000,1999,1999 IPV 08/21/2004,2000,1999 ,1999 Influenza, Unspecified 01/14/2018,02/04/2009, MMR 08/21/2004,2000 Meningococcal ACWY, unspecified 09/05/2015,09/17 Meningococcal MCV4P 09/05/2015,09/18/2011 Moderna SARS-CoV-2 Vaccination 03/12/2020,2020,02/13/2020,02/12/2020 Novel [id number], nasal 02/04/2009,2008 Polio, Unspecified 08/21/2004,2000, 000,1999 Tdap 09/18/2011 Varicella 06/17/2000 Family History Medical History Relation Name Comments Hyperlipidemia Father Jair Hypertension Father Jair Depression Mother Елена Hypertension Mother Елена Miscarriages / Stillbirths Mother Елена Polycystic ovary syndrome Mother Елена Diabetes Paternal Grandfather Wild Colon cancer Paternal Grandmother Relation Name Status Comments Brother 1 Father Jair Alive Mother Елена Alive Paternal Grandfather Wild Paternal Grandmother Sister 1, healthy Social History Tobacco Use Types Packs/Day Years Used Date Smoking Tobacco: Never Passive Smoke Exposure: Never Smokeless Tobacco: Never Tobacco Cessation:Counseling Given: Not Answered Alcohol Use Standard Drinks/Week Comments Not Currently [...] How often do you attend chur or cheondoism services? More than 4 times per year [...] Recorded Patient Health Questionnaire-2 Score 0 05/08/2024 [facility] Occupational Stress Questionnaire Answer Date Recorded [...] place to sleep or slept in a assisted (including now)? No 07/29/2022 Housing Stability Vital Sign Answer Ilan e Recorded In the last 12 months, was t here a time when you were not able to pay the mortgage or rent on time? No 10/19/2023 In the past 12 months, how m any times have you moved where you were living? 0 10/19/2023 At any time in the past 12 m [facility], were you homeless or living in a assisted (including now)? No 10/19/2023 Comments No Sex and Gender Information Value Date Recorded Sex Assigned at Not on file Legal Sex Female 11:08 PM EDT Gender Identity Not on file Sexual Orientation Not on file Last Filed Vital Signs Vital Sign Reading Time Taken Comments Blood Pressure 124/74 09/21/2024 4:03 PM EDT Pulse 110 05/08/2024 11:30 AM EDT Temperature 36.2 C (97.2 F) 05/08/2024 11:30 AM EDT Respiratory Rate - - Oxygen Saturation 97% 05/08/2024 11:30 AM EDT Inhaled Oxygen Concentration - - Weight 84.8 kg (187 lb) 09/21/2024 4:03 PM EDT Height 162.6 cm (5' 4 ) 05/08/2024 11:30 AM EDT Body Mass Index 32.1 05/08/2024 11:30 AM EDT Plan of Treatment Upcoming Encounters Date Type Department Care Team (Late st Contact Info) Description 10/19/2024 10:15 AM EDT Visit [facility] [address] [place] [phone] Mandy Patel DO [address] [place] [address] Health Maintenance Due Date Last Done Comments Influenza Vaccine (#1) 2024 01/14/2018, 2008, 01/07/2009 Procedures Procedure Name Priority Date/Time Associated Diagnosis Comments CBC WITH AUTO DIFFERENTIAL Routine 09/10/2024 7:47 AM EDT CBC WITH AUTO DIFFERENTIAL Routine 09/09/2024 7:20 AM EDT RPR W/RFX TO QUANT & TP ABS ([facility]) STAT 09/08/2024 9:56 PM EDT CBC WITH AUTO DIFFERENTIAL STAT 09/08/2024 9:56 PM EDT OB URINE DRUG SCREEN (NO THC) STAT 09/08/2024 9:40 PM EDT URINALYSIS REFLEX STAT 09/08/2024 9:4 0 PM EDT CULTURE, URINE, ROUTINE STAT 09/08/2024 9:40 PM EDT POCT URINALYSIS 4 DIPSTICK Routine 09/07/2024 2:16 PM EDT 38 weeks gestation of ([facility]) URIC ACID STAT 09/01/2024 3:26 PM EDT COMPREHENSIVE METABOLIC PANEL STAT 09/01/2024 3:26 PM EDT PROTEIN / CREATININE RATIO, URINE STAT 09/01/2024 2:13 PM EDT URINALYSIS REFLEX STAT 09/01/2024 2:1 3 PM EDT CULTURE, URINE, ROUTINE STAT 09/01/2024 2:13 PM EDT POCT URINALYSIS 4 DIPSTICK Routine 08/31/2024 1:17 PM EDT 37 weeks gestation of ([facility]) POCT URINALYSIS 4 DIPSTICK Routine 08/29/2024 2:00 PM EDT 37 weeks gestation of ([facility]) POCT URINALYSIS 4 DIPSTICK Routine 08/25/2024 10:41 AM EDT 36 weeks gestation of ([facility]) STREP B SCREEN Routine 08/25/2024 10:30 AM EDT screening for streptococcus B ([facility]) US OB FOLLOW UP TRANSABDOMINAL APPROACH Routine 08/08/2024 4:38 PM EDT related condition in third trimester (HHS-HCC) History of miscarriage, currently , third trimester (HHS-HCC) 34 weeks gestation of ([facility]HS-HCC) POCT URINALYSIS 4 DIPSTICK Routine 08/08/2024 4:18 PM EDT 34 weeks gestation of (HHS-HCC) POCT URINALYSIS 4 DIPSTICK Routine 07/25/2024 1:47 PM EDT 32 weeks gestation of (HHS-HCC) POCT URINALYSIS 4 DIPSTICK Routine 07/11/2024 2:48 PM EDT 30 weeks gestation of (HHS-HCC) US ABDOMEN LIMITED 07/02/2024 9: 58 AM EDT CBC WITH AUTO DIFFERENTIAL Today 07/02/2024 6:03 AM EDT from Last 3 Months Results * (ABNORMAL) CBC auto differential (09/10/2024 7:47 AM EDT) Only the most recent of4 resultswithin the time period is included. WBC 14.4(H) 3.8 - 11.6 [CFU]/mL 09/10/2024 8:13 AM EDT [facility] UNCORRECTED WHITE BLOOD COUNT 14.4(H) 3.8 - 11.6 10*3/uL 09/10/2024 8:13 AM EDT [facility] RBC 3.66 3.60 - 5.00 10*6/uL 09/10/2024 8:13 AM EDT [facility] HEMOGLOBIN 11.1(L) 11.8 - 15.4 g/dL 09/10/2024 8:13 AM EDT [facility] HEMATOCRIT 33.0(L) 34.0 - 46.4 % 09/10/2024 8:13 AM EDT [facility] MCV 90.3 80 - 100 fL 09/10/2024 8:13 AM EDT [facility] MCH 30.2 24.7 - 34.3 pg 09/10/2024 8:13 AM EDT [facility] MCHC 33.5 32.0 - 35.0 g/dL 09/10/2024 8:13 AM EDT [facility] RED CELL DISTRIBUTION WIDTH, RDW 13.7 11.9 - 15.3 % 09/10/2024 8:13 AM EDT [facility] PLATELET COUNT 266 150 - 450 10*3/uL 09/10/2024 8:13 AM EDT [facility] MEAN PLATELET VOLUME, MPV 7.8 6.3 - 10.7 fL 09/10/2024 8:13 AM EDT [facility] NEUTROPHILS, % 73.8 . % 09/10/2024 8:13 AM EDT [facility] LYMPHOCYTES, % 18.2 . % 09/10/2024 8:13 AM EDT [facility] MONOCYTE/MACROPHA GE, % 5.7 . % 09/10/2024 8:13 AM EDT [facility] EOSINOPHILS, % 1.7 . % 09/10/2024 8:13 AM EDT [facility] BASOPHILS, % 0.6 . % 09/10/2024 8:13 AM EDT [facility] NRBC 0.0 0 - 0.5 /100{WBC} 09/10/2024 8:13 AM EDT [facility] NEUTROPHILS 10.7(H) 1.8 - 7.7 10*3/uL 09/10/2024 8:13 AM EDT [facility] LYMPHOCYTES 2.6 1.00 - 4.8 10*3/uL 09/10/2024 8:13 AM EDT [facility] MONOCYTES 0.8 0.0 - 0.8 10*3/uL 09/10/2024 8:13 AM EDT [facility] EOSINOPHILS 0.2 0.0 - 0.45 10*3/uL 09/10/2024 8:13 AM EDT [facility] BASOPHILS 0.1 0.0 - 0.2 10*3/uL 09/10/2024 8:13 AM EDT [facility] Blood (Blood) 09/10/2024 7:4 7 AM EDT 09/10/2024 8:05 AM EDT Corina Hernandez MD LAB BLOOD ORDERABLES Final Res ult Performing Organization Address [facility]/ZIP Co de Phone Number [address] [address], [facility] [address] [place] [address] * RPR W/RFX TO QUANT & TP ABS ([facility]) (09/08/2024 9:56 PM EDT) RPR, RFX QUANT RPR Non Reactive Non Reactive 09/10/2024 11:07 AM EDT [facility] Comment: Performed at: [facility] [id number] Electrical Systems Designer: Harsha Villanueva PhD, Phone: [phone] Other Topography unknown / Unknown 09/08/2024 9:56 PM EDT 09/08/2024 10:29 PM EDT Corina Hernandez MD LAB BLOOD ORDERABLES Final Res ult Performing Organization Address [facility]/ZIP Co de Phone Number [place] [phone], * OB URINE DRUG SCREEN (NO THC) (09/08/2024 9:40 PM EDT) AMPHETAMINE SCREEN,URINE Negative Negative 09/09/2024 12:10 AM EDT [facility] BARBITURATE SCREEN,URINE Negative Negative 09/09/2024 12:10 AM EDT [facility] BENZODIAZEPINES SCREEN,URINE Negative Negative 09/09/2024 12:10 AM EDT [facility] COCAINE SCREEN,URINE Negative Negative 09/09/2024 12:10 AM EDT [facility] OPIATE SCREEN,URINE Negative Negative 09/09 12:10 AM EDT [facility] PHENCYCLIDINE SCREEN, URINE Negative Negative 09/09/2024 12:10 AM EDT [facility] Comment: These are unconfirmed results and should not be used for legal purposes. Drug Cut-Off Concentration: AMPH 1000 ng/mL SHERICE 200 ng/mL ANA 200 ng/mL COCM 300 ng/mL OP 300 ng/mL PCP 25 ng/mL Other 09/08/2024 9:40 PM EDT 09/08/2024 11:30 PM EDT Narrative [facility] - 09/09/2024 12:10 AM EDT Comment s/s of acute impairment us Corina Hernandez MD LAB BLOOD ORDERABLES Final Res ult [facility] [address] [place] [address], [facility] [address] [place] [address] * (ABNORMAL) Urinalysis with reflex microscopic (09/08/2024 9:40 PM EDT) Only the most recent of2 resultswithin the time period is included. COLOR,URINE Yellow Yellow 09/08/2024 9:54 PM EDT [facility] APPEARANCE,URI NE Cloudy(AA) Clear 09/08/2024 9:54 PM EDT [facility] SPECIFICY GRAVITY,URINE 1.033(H) 1.001 - 1.030 09/08/2024 9:[facility] 5.5 5.0 - 9.0 09/08/2024 9:54 PM [facility] LEUKOCYTE ESTERASE,URINE 4+ Negative 09/08/2024 9:54 PM [facility] NITRITE,URINE Negative Negative 09/08/2024 9:54 PM [facility] PROTEIN,URINE 30 Negative mg/dL 09/08/2024 9:54 PM EDT [facility] GLUCOSE,URINE (UA) Normal Normal mg/dL 09/08/2024 9:54 PM [facility] KETONES,URINE 1+ Negative 09/08/2024 9:54 [facility] UROBILINOGEN,U RINE Normal Normal mg/dL 09/08/2024 9:54 PM [facility] BILIRUBIN,URIN E Negative Negative 09/08/2024 9:54 PM [facility] OCCULT BLOOD,URINE 2+ Negative 09/08/2024 9:54 PM EDT [facility] RBC,URINE 50-100 0 - 4 [HPF] 09/08/2024 9:56 PM EDT [facility] WBC,URINE 50-100 0 - 4 [HPF] 09/08/2024 9:56 PM EDT [facility] SQUAMOUS EPITHELIAL CELL,URINE 20-49 0 - 2 [HPF] 09/08/2024 9:56 PM EDT [facility] NON-SQUAMOUS EPITHELIAL CELL,U 1-2 None Seen [HPF] 09/08/2024 9:56 PM EDT [facility] CALCIUM OXALATE CRYSTALS,URINE 2+ [HPF] 09/08/2024 9:56 PM EDT [facility] BACTERIA,URINE Rare None Seen [HPF] 09/08/2024 9:56 PM EDT [facility] HYALINE CASTS,URINE None 0 - 8 [LPF] 09/08/2024 9:56 PM EDT [facility] MUCUS,URINE 3+(AA) [LPF] 09/08/2024 9:56 PM EDT [facility] Other 09/08/2024 9:40 PM EDT 09/08/2024 9:50 PM EDT Narrative [facility] - 09/08/2024 9:56 PM EDT Comment c/o urinary symptoms or increased blood pressure Name Collection Type:: Clean-Voided Midstream us Corina Hernandez MD LAB URINE ORDERABLES Final Res ult [facility] [address] [place] [address], [facility] [address] [place] [address] * Urine culture (09/08/2024 9:40 PM EDT) Only the most recent of2 resultswithin the time period is included. [facility] ORGANISM Strep agalactiae - (group b) 09/09/2024 1:57 PM EDT [facility] COLONY COUNT <10,000 09/09/2024 1:57 PM EDT [facility] Urine Urine specimen obtained by clean catch procedure / Unknown 09/08/2024 9:40 PM EDT 09/08/2024 9:50 PM EDT Comment:Clean-Voided Midstre am Corina Hernandez MD LAB MICROBIOLOGY - GENERAL ORD ERABLES Final Result Performing Organization Address [facility] Co de Phone Number [address] [address], [facility] [address] [place] [address] * POCT URINALYSIS 4 DIPSTICK (09/07/2024 2:16 PM EDT) Only the most recent of7 resultswithin the time period is included. Glucose, UA Negative Negative - 1999(110) ++++ mg/dL Protein, UA Trace Negative - 1999(20) ++++ mg/dL Urine 09/07/2024 2:16 PM EDT Mandy Patel DO POINT OF CARE TEST ENTER/ED IT ORDERABLES Final Result * Uric acid (09/01/2024 3:26 PM EDT) URIC ACID 5.5 2.3 - 6.6 mg/dL 09/01/2024 3:58 PM EDT [facility] Other Topography unknown / Unknown 09/01/2024 3:26 PM EDT 09/01/2024 3:28 PM EDT Corina Hernandez MD LAB BLOOD ORDERABLES Final Res ult Performing Organization Address City/[facility]/ZIP Co de Phone Number [address] [address], [facility] [address] [place] [address] * (ABNORMAL) Comprehensive metabolic panel (09/01/2024 3:26 PM EDT) Glucose 74 70 - 100 mg/dL 09/01/2024 3:58 PM EDT [facility] Comment: Random Glucose Reference Range is dependent on time and content of last meal. Glucose of more than 200 mg/dL in a nonstressed, ambulatory subject supports the diagnosis of Diabetes Mellitus. ADA recommended reference range BUN 7 7 - 25 mg/dL 09/01/2024 3:58 PM EDT [facility] CREATININE 0.58(L) 0.60 - 1.20 mg/dL 09/01/2024 3:58 PM EDT [facility] ESTIMATED GFR >60.0 09/01/2024 3:58 PM EDT [facility] Sodium 137 136 - 145 mmol/L 09/01/2024 3:58 PM EDT [facility] Potassium, Bld 3.7 3.5 - 5.1 mmol/L 09/01/2024 3:58 PM EDT [facility] Chloride 107 98 - 107 mmol/L 09/01/2024 3:58 PM EDT [facility] Carbon Dioxide 22.8 21.0 - 31.0 mmol/L 09/01/2024 3:58 PM EDT [facility] Anion Gap 10.9 6.0 - 15.0 09/01/2024 3:58 PM EDT [facility] Calcium 9.0 8.6 - 10.3 mg/dL 09/01/2024 3:58 PM EDT [facility] TOTAL PROTEIN 6.2(L) 6.4 - 8.9 g/dL 09/01/2024 3:58 [facility] ALBUMIN LEVEL 3.4(L) 3.5 - 5.7 g/dL 09/01/2024 3:58 PM EDT [facility] GLOBULIN 2.8 g/dL 09/01/2024 3:58 PM EDT [facility] ALBUMIN/GLOBULIN RATIO 1.2 09/01/2024 3:58 PM EDT [facility] BILIRUBIN,TOTAL 0.2(L) 0.3 - 1.0 mg/dL 09/01/2024 3:58 PM EDT [facility] ASPARTATE AMINO TRANSFERASE 16 13 - 39 U/L 09/01/2024 3:58 PM EDT [facility] ALANINE AMINOTRANSFERASE 12 7 - 52 U/L 09/01/2024 3:58 PM EDT [facility] ALKALINE PHOSPHATASE 96 34 - 104 U/L 09/01/2024 3:58 PM EDT [facility] CREATININE CLR [facility] 270.22 09/01/2024 3:58 PM EDT [facility] Other Topography unknown / Unknown 09/01/2024 3:26 PM EDT 09/01/2024 3:28 PM EDT us Corina Hernandez MD LAB BLOOD ORDERABLES Final Res ult [facility] [facility] [address] [place] [address], [address] [address] * (ABNORMAL) Protein / creatinine ratio, urine (09/01/2024 2:13 PM EDT) Pathologist [facility] CREATININE, URINE (RANDOM) 135.00 mg/dL 09/01/2024 4:09 PM EDT [facility] Comment:No reference range e stablished PROTEIN, URINE (RANDOM) 21(H) 0 - 9 mg/dL 09/01/2024 4:09 PM EDT [facility] URINE PROTEIN/CREATINI NE RATIO 156 0 - 200 mg/g{Cre} 09/01/2024 4:09 PM EDT [facility] Other 09/01/2024 2:13 PM EDT 09/01/2024 3:22 PM EDT Narrative [facility] - 09/01/2024 4:09 PM EDT Comment Already Obtained and in Lab us Corina Hernandez MD LAB URINE ORDERABLES Final Res ult Performing Organization Address City/[facility]/ZIP Co de Phone Number [facility] [address] [place] [address], [facility] [address] [place] [address] * Strep B screen (08/25/2024 10:30 AM EDT) Pathologist [facility] NOTE No Group B Beta Streptococcus Isolated 3 Days 08/28/2024 8:28 AM EDT [facility] Swab Vaginal swab / Unknown 08/25/2024 10:30 AM EDT 08/25/2024 1:13 PM EDT Mandy Patel DO LAB MICROBIOLOGY - GENERAL ORDERABLES Final Result Performing Organization Address City/State/[facility] Co de Phone Number [facility] [address] [place] [address], [facility] [address] [place] [address] * US OB follow up transabdominal approach (08/08/2024 4:38 PM EDT) Anatomical Region Laterality Modality Body Ultrasound Study GA Study Date Study TORRES Working TORRES (Source) 08/08/2024 09/17/2024 (Last Menstrua l Period) Fetus A Measurements Value GA (days) Biparietal Diameter Head Circumference Abdominal Circumference Femur Length Ulna Length Humerus Length Tibia Length Amniotic Fluid Index Quadrant 1 Amniotic Fluid Index Quadrant 2 Amniotic Fluid Index Quadrant 3 Amniotic Fluid Index Quadrant 4 Amniotic Fluid Index Deep Vertical Pocket UA SD Ratio UA Resistance Index UA Pulsatility Index MCA SD Ratio MCA Resistance Index MCA Pulsatility Index Heart Rate TWIN DISCORDANCE CERVICAL W/FUNDAL PRESSURE CERVICAL W/ VALSALVA Narrative 08/10/2024 11:05 AM EDT There is a single intrauterine visualized. biometry is consistent with the established dates. Serial growth is within normal limits. The EFW is at the 59th percentile. The anatomy visualized appears normal. The MVP measures 5.2 cm. Mandy Patel DO IMG OB US PROCEDURES Final Result * US abdomen limited (07/02/2024 9:58 AM EDT) Anatomical Region Laterality Modality Abdomen Ultrasound 07/02/2024 9:58 AM EDT Impressions 07/02/2024 10:01 AM EDT Unremarkable exam Impression dictated by: Iftikhar Gibson M.D. 07/02/2024 9:58 AM Dictation Location: [place] [address] Tech: Margie Soto Transcribed By: GLORIA 07/02/2458 Dictated By: Iftikhar Gibson DO 07/02/2458 Signed By: <Electronically signed by Iftikhar Gibson, DO in OV> 07/02/24 0958 Narrative 07/02/2024 10:01 AM EDT [facility] [address] Ultrasound Report Signed Patient: Carmelita Guido MR#: [id number] 64 : 2000 Acct:[id number] Age/Sex: 24 / F ADM Date: 07/01/24 Loc: E3 Room: Type: [facility] CLI Attending Dr: Corina Hernandez MD Ordering Provider: [...] limited Procedure Note Radiology, Radiologist, - 07/02/2024 [facility] [place] [id number] Ultrasound Report Signed Patient: Carmelita Guido RMR#: [id number] 64 : 2000Acct:[id number] Age/Sex: 24 / FADM Date: 07/01/24 Loc: E3 Room:Type: [facility] CLI Attending Dr: Corina Hernandez MD Ordering Provider: MINNA Santillan Date of Service: 07/01/24 US/US abdomen limited: right upper abdominalpain Copies to: MINNA Santillan LIMITED ABDOMINAL ULTRASOUND [...] Gibson M.D. 07/02/2024 9:58 AM Dictation Location: [facility] Tech: Margie Soto Transcribed By: PWS 07/02/24957 Dictated By: Iftikhar Gibson DO 07/02/24957 Signed By: <Electronically signed by Iftikhar Gibson DO in OV> 07/02/24957 us Corina Hernandez MD IMG US PROCEDURES Final Result from Last 3 Months Insurance [facility] Care Teams Riveter Helper Relationship Specialty Start Date End Date Franky Mcmillan DO [address] [place] [address] PCP - General Family Medicine 07/16/22 Franky Mcmillan DO [address] [place] [address] PCP - [place] [employer] 05/16/21
--- OUTSIDE RECORDS SUMMARY | 2024-10-02 19:41 | XMS_ITS | Encounter Summary ---
Author Organization [facility] Address [address] [place] [address] Care Team Providers Care Vp Of Technology Name Role Phone Unavailable Primary Care Provider Unavailabl e Source Comments In the event this information is protected by the Federal Confidentiality of Alcohol and Drug AbusePatient Records regulations: The Federal rules restrict any use of the information to criminally investigate or prosecute any alcohol or drug abuse patient.[facility] Encounter Details Date Type Department Care Team (Late st Contact Info) Description 02/01/2024 Patient Msg Reproductive Endocrinology Infertility [address] [place] [address] Lydia Copeland, ANNA.CUSTOMER OPERATIONS ASSOCIATE [address] [place] [address] Congratulations!!! Social History Tobacco Use Types Packs/Day Years Used Date Smoking Tobacco: Never Smokeless Tobacco: Never Area Deprivation Index Answer Date Rodolfo rded National Score (1-100), lower number is lower ri sk 53 12/13/2023 State Score (1-10), lower number is lower risk 3 12/13/2023 Data from: https://www.neighborhoodatlas.medicine.[facility].edu/. Last address used for calculation [address] [...]
--- OUTSIDE RECORDS SUMMARY | 2024-10-02 19:41 | XMS_ITS | Encounter Summary ---
Author Organization [facility] Address [address] [facility] [place] [address] Care Team Providers Care Environmental Programs Specialist Name Role Phone Franky Mcmillan DO Primary Care Provider [phone] Franky Mcmillan DO Unavailable [phone] Encounter Details Date Type Department Care Team (Late st Contact Info) Description 02/09/2023 Clinisync Result Encounter [facility] External Department Unsolicited Franky Mcmillan DO [address] [place] [address] Social History Tobacco Use Types Packs/Day Years [...] How often do you attend chur or christianity services? More than 4 times per year 07/29/2022 Do you belong to any clubs o r organizations such as gnosticism groups, unions, fraternal or athletic groups, or [...] Recorded Patient Health Questionnaire-2 Score 0 07/29/2022 [facility] Occupational Stress Questionnaire Answer [...] place to sleep or slept in a intermediate (including now)? No 07/29/2022 Comments Unknown Sex [...] FELICIANO [address] [place] [id number] Mandy Patel DO [address] [place] [address] documented as of this encounter Procedures Procedure Name Priority Date/Time Associated Diagnosis Comments US RENAL BI 02/09/2023 12:15 PM EST documented in this encounter Results * US RENAL BI (02/09/2023 12:15 PM EST) Anatomical Region Laterality Modality Other 02/09/2023 12:1 5 PM EST Narrative 02/09/2023 12:18 PM EST The [address] [address] Ultrasound Report Signed Patient: DANELLE MISTRY MR#: [id number] : 2000 Acct:[id number] Age/Sex: 22 / F ADM Date: 02/09/23 Loc: US Attending Dr: Rebecca MCMILLAN Ordering Physician: Rebecca MCMILLAN Date of Service: 02/09/23 Procedure(s): US renal BI Accession Number(s): [id number] cc: Rebecca MCMILLAN ; Mirna Aguilera M.D. The [place] [address] Patient Name: DANELLE MISTRY MRN: [facility]:[id number] date: 2000 Sex: F Assigned Patient Location: US Current Patient Location: US Accession/Order Number: [id number] Exam Date: 02/09/2023 07:02 Report Date: 02/09/2023 12:15 At the request of: Rebecca MCMILLAN Procedure: US renal BI EXAM: US renal BI HISTORY: N20.0. History of renal calculi. COMPARISON: None. TECHNIQUE: Ultrasound study of the kidneys was performed. FINDINGS: Right kidney measures 10.7 x 3.9 x 4.3 cm, left kidney measures 11.2 x 4.3 x 4.4 cm in longitudinal, transverse, and AP dimensions. Renal cortical thickness appears grossly unremarkable bilaterally, measuring 1.2 cm in thickness on the right and 1.4 cm in thickness on the left. No obvious solid or cystic renal mass. No evidence of hydronephrosis to suggest obstructive uropathy. Within the inferior aspect of the right kidney there is a 0.5 x 0.3 x 0.3 cm area of increased echogenicity likely representing a nonobstructive calculus. Bladder appears grossly unremarkable without a calculus, mass, or significant wall thickening. US/US renal BI IMPRESSION: Findings compatible with nonobstructive right renal calculus as noted. Electronically authenticated by: DAYANNA ALONZO Date: 02/09/2023 12:15 Dictated By: Dayanna Alonzo M.D. Signed By: 02/09/23 1218 DD/ 1215 TD/TT: Zipper Trimmer Hand: Procedure Note Radiology, Radiologist, - 02/09/2023 [place] [address] Ultrasound Report Signed Patient: DANELLE MISTRYMR#: [id number] : 2000Acct:[id number] Age/Sex: M Date: 02/09/23 Loc: US Attending Dr: Rebecca MCMILLAN Ordering Physician: Rebecca MCMILLAN Date of Service: 02/09/23 Procedure(s): US renal BI Accession Number(s): [id number] cc: Rebecca MCMILLAN ; Mirna Aguilera M.D. [place] [id number] Patient Name: DANELLE MISTRY MRN: [id number] date: 2000 Sex: F Assigned Patient Location: US Current Patient Location: US Accession/Order Number: [id number] Exam Date: 02/09/2023 07:02 Report Date: 02/09/2023 12:15 At the request of: Rebecca MCMILLAN Procedure: US renal BI EXAM: US renal BI HISTORY: N20.0. History of renal calculi. COMPARISON: None. TECHNIQUE: Ultrasound study of the kidneys was performed. FINDINGS: Right kidney measures 10.7 x 3.9 x 4.3 cm, left kidney lmuljltm93.2 x 4.3 x 4.4 cm in longitudinal, transverse, and AP dimensions. Renalcortical thickness appears grossly unremarkable bilaterally, measuring 1.2 cm in thickness on the right and 1.4 cm in thickness on the left. No obvioussolid or cystic renal mass. No evidence of hydronephrosis to suggest obstructive uropathy. Within the inferior aspect of the right kidney there is a 0.5 x 0.3 x 0.3cm area of increased echogenicity likely representing a nonobstructivecalculus. Bladder appears grossly unremarkable without a calculus, mass, orsignificant wall thickening. US/US renal BI IMPRESSION: Findings compatible with nonobstructive right renal calculus as noted. Electronically authenticated by: DAYANNA ALONZO Date: 02/09/2023 12:15 Dictated By: Dayanna Alonzo M.D. Signed By:02/09/23 1218 DD/ 1215 TD/TT: Zipper Trimmer Hand: us Franky Mcmillan DO [facility] Final Resul t documented in this encounter Visit Diagnoses Not on filedocumented in this encounter Care Teams Environmental Programs Specialist Relationship Specialty Start Date End Date Franky Mcmillan DO [address] [facility] [address] [place] [address] PCP - General Family Medicine 07/16/22 Franky Mcmillan DO [address] [facility] [address] [place] [address] PCP - Anselmo [employer] 05/16/21 documented as of this encounter
--- OUTSIDE RECORDS SUMMARY | 2024-10-02 19:41 | XMS_ITS | Encounter Summary ---
Author Organization [facility] Address [address] [place] [address] Care Team Providers Care Tie Knitter Helper Name Role Phone Franky Mcmillan DO Primary Care Provider [phone] Franky Mcmillan DO Unavailable [phone] Encounter Details Date Type Department Care Team (Late st Contact Info) Description 02/09/2023 Orders Only [facility] [address] [place] [phone] A, Unknown Practice [address] [place] [phone] Social History Tobacco Use Types Packs/Day Years [...] How often do you attend chur or latter-day services? More than 4 times per year 07/29/2022 Do you belong to any clubs o r organizations such as mu-ism groups, unions, fraternal or athletic groups, or [...] Recorded Patient Health Questionnaire-2 Score 0 07/29/2022 [facility] - Occupational [...] place to sleep or slept in a [place] health [place] facility (including now)? No 07/29/2022 Comments Unknown Sex [...] FELICIANO [address] [place] [phone] Mandy Patel DO [address] [place] [address] documented as of this encounter Procedures Procedure Name Priority Date/Time Associated Diagnosis Comments US RENAL KIDNEY Routine 02/09/2023 12:28 PM EST documented in this encounter Results * US RENAL KIDNEY (02/09/2023 12:28 PM EST) Anatomical Region Laterality Modality Radiographic Génesis ging us Unknown Practice A IMG XR PROCEDURES Final Resul t documented in this encounter Visit Diagnoses Not on filedocumented in this encounter Care Teams Tie Knitter Helper Relationship Specialty Start Date End Date Franky Mcmillan DO [address] [place] [address] PCP - General Family Medicine 07/16/22 Franky Mcmillan DO [address] [place] [id number] PCP - Anselmo Commercial 05/16/21 documented as of this encounter
--- OUTSIDE RECORDS SUMMARY | 2024-10-02 19:41 | XMS_ITS | Encounter Summary ---
Author Organization [facility] Address [address] [place] [address] Care Team Providers Care Director Of Informatics Name Role Phone Franky Mcmillan DO Primary Care Provider [phone] Franky Mcmillan DO Unavailable [phone] Encounter Details Date Type Department Care Team (Late st Contact Info) Description 09/09/2024 Results [facility] [address] [place] [phone] Corina Hernandez MD [address] [place] [address] OB URINE DRUG SCREEN (NO THC) Social History Tobacco Use Types Packs/Day Years [...] How often do you attend chur or jew services? More than 4 times per year 10/19/2023 Do you belong to any clubs o r organizations such as scientology groups, unions, fraternal or athletic groups, or [...] Recorded Patient Health Questionnaire-2 Score 0 05/08/2024 [facility] [...] place to sleep or slept in a long-term (including now)? No 07/29/2022 Housing Stability Vital Sign Answer Ilan e Recorded In the last 12 months, was t here a time when you were not able to pay the mortgage or rent on time? No 10/19/2023 In the past 12 months, how m any times have you moved where you were living? 0 10/19/2023 At any time in the past 12 m [facility], were you homeless or living in a long-term (including now)? No 10/19/2023 Comments Yes Sex [...] FELICIANO [address] [place] [address] Mandy Patel DO [address] [place] [address] documented as of this encounter Visit Diagnoses Not on filedocumented in this encounter Care Teams Director Of Informatics Relationship Specialty Start Date End Date Franky Mcmillan DO [address] [place] [address] PCP - General Family Medicine 07/16/22 Franky Mcmillan DO [address] [facility] [address] [place] [address] PCP - Anselmo [employer] 05/16/21 documented as of this encounter
--- NOTE | 2024-10-02 19:42 | ED.GENADUL1 ---
Documented by User: [email or web address] Parr 10/02/24 21:16 HPI HPI - General Adult General Chief complaint: Back Pain/Injury Stated complaint: LOWER BACK PAIN Time Seen by Provider: 10/02/24 19:14 Source: patient Mode of arrival: walk-in Limitations: no limitations History of Present Illness HPI narrative: Patient is a 24-year-old female who is 3 weeks presents to the emergency department with complaints of 3 days of right sided low back/flank pain. She did have an uncomplicated vaginal . That she does have hemorrhoids and has been constipated. Her last BM was this morning but was a very small amount. She has been taking stool softeners and tried a laxative this morning but has not had any relief from this flank pain. She has tried ibuprofen as well without relief of her pain. Her lochia is starting to decrease and she denies abdominal pain. She does have a history of a kidney stone on the right side that did not require any surgery/procedure. She denies chest pain or SOB. She does endorse loss of appetite, no nausea, no vomiting. Related Data Home Medications ?Medication ?Instructions ?Recorded ?Confirmed docusate sodium 100 mg capsule 100 mg PO DAILY 10/02/24 10/02/24 metformin 500 mg tablet 500 mg PO BID 10/02/24 10/02/24 sertraline 50 mg tablet (Zoloft) 50 mg PO DAILY 10/02/24 10/02/24 Previous Rx's ?Medication ?Instructions ?Recorded cephalexin 500 mg capsule 500 mg PO Q8H 7 days #21 caps 10/02/24 ondansetron 4 mg disintegrating 4 mg PO Q8H 4 days #12 tabs 10/02/24 tablet oxycodone 5 mg tablet 5 mg PO Q6H PRN pain #12 tabs 10/02/24 Allergies Allergy/AdvReac Type Severity Reaction Status Date / Time No Known Drug Allergies Allergy Verified 10/02/24 19:14 Opioid HPI Opioid Management Most Recent Opioid Data: Last Pain Scale 7 10/02/24, 19:59 Last MAR Pain Assessment 10/02/24, 19:59 PFSH PFSH Social History Little interest or pleasure in doing things: not at all Feeling down, depressed, or hopeless: not at all Exam Narrative Exam Narrative: General: No distress, age-appropriate Skin: Warm, dry, no pallor. No rash. Head: Normocephalic, atraumatic. Neck: Supple, non-tender. Eye: Pupils are equal, round and EOMI. No scleral icterus. Ears, Nose, Mouth, and Throat: No nasal mucosal hypertrophy. Oral mucosa is moist, no posterior oropharynx erythema, uvula is mid-line Cardiovascular: Regular Rate and Rhythm without murmur, gallop or rub. Respiratory: No accessory muscle use or respiratory distress. Lungs are clear to auscultation, no wheezing, rales or rhonchi Chest Wall: no tenderness Back: No midline thoracic or lumbar vertebral tenderness. Musculoskeletal: Full ROM of all extremities, no calf or popliteal tenderness GI: Abdomen is soft, non-distended, non tender to palpation. No masses appreciated. No rebound, guarding, or rigidity noted. Neurological: A&O x4. No cranial nerve dysfunction observed. No truncal ataxia. Moves all extremities. Sensation intact. Psychiatric: Cooperative and interactive. Normal mood and affect. Constitutional Vital Signs, click to edit/add: Last Vital Signs Temp 98.6 F 10/02/24 19:19 Pulse 81 10/02/24 22:08 Resp 20 10/02/24 22:08 BP 133/79 10/02/24 22:08 Pulse Ox 98 10/02/24 22:08 O2 Del Method Room Air 10/02/24 22:08 Course Vital Signs Vital signs: Vital Signs Temperature 98.6 F 10/02/24 19:19 Pulse Rate 82 10/02/24 19:19 Respiratory Rate 20 10/02/24 19:19 Blood Pressure 134/92 H 10/02/24 19:19 Pulse Oximetry 96 10/02/24 19:19 Oxygen Delivery Method Room Air 10/02/24 19:19 Temperature 98.6 F 10/02/24 19:19 Pulse Rate 81 10/02/24 22:08 Respiratory Rate 20 10/02/24 22:08 Blood Pressure 133/79 10/02/24 22:08 Pulse Oximetry 98 10/02/24 22:08 Oxygen Delivery Method Room Air 10/02/24 22:08 Medical Decision Making MDM Narrative Medical decision making narrative: 24-year-old female presents with complaints of 3 days of right-sided low back/flank pain. She is 3 weeks . She has been constipated, last BM this morning that was small amount and loose. She has been taking ibuprofen, stool softeners, and a laxative this morning without relief of her pain. Patient appears to be in pain on arrival, sitting up hunched over on the ED cart holding right flank. Nontoxic-appearing. Vital stable, no tachycardia or hypotension. IV was placed. 1 L NS ordered. 30 mg Toradol IV ordered for pain. CT ab/pel without contrast ordered to eval for kidney stone. CBC, BMP, UA, urine hCG. WBC 12.3, CR 1.61, urinalysis with moderate blood, small leukocyte esterase, urine WBC and bacteria with and obstructing stone in the right ureter on CT scan 8 x 6 mm proximal right ureteral stone with moderate hydronephrosis. Patient updated with CT results and report handed to her. Patient has seen a urologist in the past, Dr. Aguilera. On reevaluation her pain is much more controlled after the Toradol, she appears comfortable and in no distress. I am going to give her a dose of Rocephin here and Percocet 5 mg ,Zofran 4 mg, and Keflex 3 times daily x 7 days at discharge. I discussed discharge to home with pain medications and antibiotics given her pain was controlled and patient agrees. She will follow up with Dr Aguilera as soon as possible this week. Differential Diagnosis Differential Diagnosis: Obstructing nephrolithiasis, UTI, cholelithiasis Lab Data Labs: Lab Results 10/02/24 10/02/24 Range/Units 19:45 19:50 WBC 12.3 H (4.0-11.0) 10^3/uL RBC 4.47 (4.20-5.40) 10^6/uL Hgb 13.6 (12.0-16.0) g/dL Hct 40.0 (36.0-48.0) % MCV 89.5 (81.0-99.0) fL MCH 30.4 (26.7-34.0) pg MCHC 34.0 (29.9-35.2) g/dL RDW 12.1 (11.0-15.0) % Plt Count 464 H (150-450) 10^3/uL MPV 9.2 L (9.5-13.5) fL Neut % (Auto) 76.2 H (43.0-75.0) % Lymph % (Auto) 15.5 L (20.5-60.0) % [place] % (Auto) 7.2 (1.7-12.0) % Eos % (Auto) 0.5 L (0.9-7.0) % Baso % (Auto) 0.4 (0.2-2.0) % Neut # (Auto) 9.4 H (1.4-6.5) 10^3/uL Lymph # (Auto) 1.9 (1.2-3.8) 10^3/uL [place]son # (Auto) 0.9 H (0.3-0.8) 10^3/uL Eos # (Auto) 0.1 (0.0-0.7) 10^3/uL Baso # (Auto) 0.1 (0.0-0.1) 10^3/uL Abs Immat Gran (auto) 0.02 (0.00-0.03) 10^3/uL Imm/Tot Granulo (auto) 0.2 (0.0-0.5) % Sodium 142 (136-145) mmol/L Potassium 4.0 (3.5-5.1) mmol/L Chloride 106 (98-107) mmol/L Carbon Dioxide 28.6 (21.0-32.0) mmol/L Anion Gap 11.4 BUN 17.0 (7.0-18.0) mg/dL Creatinine 1.61 H (0.55-1.02) mg/dL Est GFR ( Amer) 47 L (>=60 mL/min/1.73m^2) Est GFR (Non-Af Amer) 39 L (>=60 mL/min/1.73m^2) BUN/Creatinine Ratio 10.6 Glucose 92 (74-106) mg/dL Calcium 9.2 (8.5-10.1) mg/dL Urine Color Lt. yellow (YELLOW) Urine Clarity Clear (CLEAR) Urine pH 7.0 (5.0-9.0) Ur Specific [place] 1.020 (1.005-1.025) Urine Protein Negative (NEG/TRACE) mg/dL Urine Glucose (UA) Negative (NEGATIVE) mg/dL Urine Ketones 40 A (NEGATIVE) mg/dL Urine Occult Blood Moderate A (NEGATIVE) Urine Nitrite Negative (NEGATIVE) Urine Bilirubin Negative (NEGATIVE) Urine Urobilinogen 0.2 (0.2-1.0) EU/dL Ur Leukocyte Esterase Small A (NEGATIVE) Urine RBC None seen (0-2) #/HPF Urine WBC 2-5 A (NONE SEEN) #/HPF Ur Squamous Epith Cells Rare (NONE/RARE) #/LPF Urine Crystals Seen A (None Seen) #/HPF Amorphous Sediment Many Urine Bacteria Moderate A (NONE SEEN) #/HPF Urine Casts None seen (NONE SEEN) #/LPF Urine Mucus None seen (NONE SEEN) Ur Culture Indicated? Yes-[facility] Urine HCG, Qual Negative (NEGATIVE) Imaging Data CT scan - abdomen: Attestation: I have reviewed the pertinent imaging results. Radiologist's impression: ITS Impressions Abdomen/Pelvis CT 10/02/24 19:38 IMPRESSION: Obstructing 8 x 6 mm proximal right ureteral stone with moderate hydronephrosis. Impression dictated by: Iftikhar Gibson M.D. 10/02/2024 8:11 PM Dictation [facility] [employer] Electronically authenticated by: [id number] Y Date: 10/02/2024 20:11 Discharge Plan Discharge Chief Complaint: Back Pain/Injury Clinical Impression: Urinary tract obstruction by kidney stone Patient Disposition: Home, Self-Care Time of Disposition Decision: 20:34 Condition: Good Prescriptions / Home Meds: New cephalexin 500 mg capsule 500 mg PO Q8H 7 Days Qty: 21 0RF oxycodone 5 mg tablet 5 mg PO Q6H PRN (Reason: pain) Qty: 12 0RF ondansetron 4 mg tablet,disintegrating 4 mg PO Q8H 4 Days Qty: 12 0RF No Action metformin 500 mg tablet 500 mg PO BID sertraline [Zoloft] 50 mg tablet 50 mg PO DAILY docusate sodium 100 mg capsule 100 mg PO DAILY Print Language: Albanian Instructions: Kidney Stones (ED) Referrals: Mirna Aguilera MD [Primary Care Provider, Urology] - As soon as possible Discharge Date/Time: 10/02/24 22:11 Documented by User: Laila Schilling MD 10/03/24 00:21 HPI HPI - General Adult General Chief complaint: Back Pain/Injury Stated complaint: LOWER BACK PAIN Time Seen by Provider: 10/02/24 19:14 Related Data Home Medications ?Medication ?Instructions ?Recorded ?Confirmed docusate sodium 100 mg capsule 100 mg PO DAILY 10/02/24 10/02/24 metformin 500 mg tablet 500 mg PO BID 10/02/24 10/02/24 sertraline 50 mg tablet (Zoloft) 50 mg PO DAILY 10/02/24 10/02/24 Previous Rx's ?Medication ?Instructions ?Recorded cephalexin 500 mg capsule 500 mg PO Q8H 7 days #21 caps 10/02/24 ondansetron 4 mg disintegrating 4 mg PO Q8H 4 days #12 tabs 10/02/24 tablet oxycodone 5 mg tablet 5 mg PO Q6H PRN pain #12 tabs 10/02/24 Allergies Allergy/AdvReac Type Severity Reaction Status Date / Time No Known Drug Allergies Allergy Verified 10/02/24 19:14 Opioid HPI Opioid Management Most Recent Opioid Data: Last Pain Scale 7 10/02/24, 19:59 Last MAR Pain Assessment 10/02/24, 19:59 PFSH PFSH Social History Little interest or pleasure in doing things: not at all Feeling down, depressed, or hopeless: not at all Exam Constitutional Vital Signs, click to edit/add: Last Vital Signs Temp 98.6 F 10/02/24 19:19 Pulse 81 10/02/24 22:08 Resp 20 10/02/24 22:08 BP 133/79 10/02/24 22:08 Pulse Ox 98 10/02/24 22:08 O2 Del Method Room Air 10/02/24 22:08 Course Vital Signs Vital signs: Vital Signs Temperature 98.6 F 10/02/24 19:19 Pulse Rate 82 10/02/24 19:19 Respiratory Rate 20 10/02/24 19:19 Blood Pressure 134/92 H 10/02/24 19:19 Pulse Oximetry 96 10/02/24 19:19 Oxygen Delivery Method Room Air 10/02/24 19:19 Temperature 98.6 F 10/02/24 19:19 Pulse Rate 81 10/02/24 22:08 Respiratory Rate 20 10/02/24 22:08 Blood Pressure 133/79 10/02/24 22:08 Pulse Oximetry 98 10/02/24 22:08 Oxygen Delivery Method Room Air 10/02/24 22:08 Medical Decision Making MDM Narrative Medical decision making narrative: 24-year-old female presents with complaints of 3 days of right-sided low back/flank pain. She is 3 weeks . She has been constipated, last BM this morning that was small amount and loose. She has been taking ibuprofen, stool softeners, and a laxative this morning without relief of her pain. Patient appears to be in pain on arrival, sitting up hunched over on the ED cart holding right flank. Nontoxic-appearing. Vital stable, no tachycardia or hypotension. IV was placed. 1 L NS ordered. 30 mg Toradol IV ordered for pain. CT ab/pel without contrast ordered to eval for kidney stone. CBC, BMP, UA, urine hCG. WBC 12.3, CR 1.61, urinalysis with moderate blood, small leukocyte esterase, urine WBC and bacteria with and obstructing stone in the right ureter on CT scan 8 x 6 mm proximal right ureteral stone with moderate hydronephrosis. Patient updated with CT results and report handed to her. Patient has seen a urologist in the past, Dr. Aguilera. On reevaluation her pain is much more controlled after the Toradol, she appears comfortable and in no distress. I am going to give her a dose of Rocephin here and Percocet 5 mg ,Zofran 4 mg, and Keflex 3 times daily x 7 days at discharge. I discussed discharge to home with pain medications and antibiotics given her pain was controlled and patient agrees. She will follow up with Dr Aguilera as soon as possible this week. This 24-year-old female was seen and evaluated in conjunction with the physician operator assistant i cementing. Please refer to her H&P. She is 3 weeks with right sided flank pain. She does have a history of a kidney stone in the past and has been seen by urology. She is breast-feeding. Upon arrival she was medicated with Toradol Zofran and IV fluids. CAT scan shows a 8 x 6 mm proximal right ureteral stone with moderate hydronephrosis. Remainder of her labs are normal with an elevated creatinine at 1.6. There is small amount of leukocyte esterase in her urine for which she received IV Rocephin. She is comfortable being discharged home. I did discuss with her pain management in light of her breast-feeding. She is reluctant to take narcotic medications which I am in agreement with but I did explain to her that she may require some degree of narcotic analgesia for this large kidney stone. She will be discharged home with a prescription for Zofran and Percocet. Flomax is category D and . She will follow-up closely with Dr. Casper and return to the emergency department for fever, intractable pain intractable vomiting or any concerns. Lab Data Labs: Lab Results 10/02/24 10/02/24 Range/Units 19:45 19:50 WBC 12.3 H (4.0-11.0) 10^3/uL RBC 4.47 (4.20-5.40) 10^6/uL Hgb 13.6 (12.0-16.0) g/dL Hct 40.0 (36.0-48.0) % MCV 89.5 (81.0-99.0) fL MCH 30.4 (26.7-34.0) pg MCHC 34.0 (29.9-35.2) g/dL RDW 12.1 (11.0-15.0) % Plt Count 464 H (150-450) 10^3/uL MPV 9.2 L (9.5-13.5) fL Neut % (Auto) 76.2 H (43.0-75.0) % Lymph % (Auto) 15.5 L (20.5-60.0) % [place] % (Auto) 7.2 (1.7-12.0) % Eos % (Auto) 0.5 L (0.9-7.0) % Baso % (Auto) 0.4 (0.2-2.0) % Neut # (Auto) 9.4 H (1.4-6.5) 10^3/uL Lymph # (Auto) 1.9 (1.2-3.8) 10^3/uL [place] # (Auto) 0.9 H (0.3-0.8) 10^3/uL Eos # (Auto) 0.1 (0.0-0.7) 10^3/uL Baso # (Auto) 0.1 (0.0-0.1) 10^3/uL Abs Immat Gran (auto) 0.02 (0.00-0.03) 10^3/uL Imm/Tot Granulo (auto) 0.2 (0.0-0.5) % Sodium 142 (136-145) mmol/L Potassium 4.0 (3.5-5.1) mmol/L Chloride 106 (98-107) mmol/L Carbon Dioxide 28.6 (21.0-32.0) mmol/L Anion Gap 11.4 BUN 17.0 (7.0-18.0) mg/dL Creatinine 1.61 H (0.55-1.02) mg/dL Est GFR ( Amer) 47 L (>=60 mL/min/1.73m^2) Est GFR (Non-Af Amer) 39 L (>=60 mL/min/1.73m^2) BUN/Creatinine Ratio 10.6 Glucose 92 (74-106) mg/dL Calcium 9.2 (8.5-10.1) mg/dL Urine Color Lt. yellow (YELLOW) Urine Clarity Clear (CLEAR) Urine pH 7.0 (5.0-9.0) Ur Specific [place] 1.020 (1.005-1.025) Urine Protein Negative (NEG/TRACE) mg/dL Urine Glucose (UA) Negative (NEGATIVE) mg/dL Urine Ketones 40 A (NEGATIVE) mg/dL Urine Occult Blood Moderate A (NEGATIVE) Urine Nitrite Negative (NEGATIVE) Urine Bilirubin Negative (NEGATIVE) Urine Urobilinogen 0.2 (0.2-1.0) EU/dL Ur Leukocyte Esterase Small A (NEGATIVE) Urine RBC None seen (0-2) #/HPF Urine WBC 2-5 A (NONE SEEN) #/HPF Ur Squamous Epith Cells Rare (NONE/RARE) #/LPF Urine Crystals Seen A (None Seen) #/HPF Amorphous Sediment Many Urine Bacteria Moderate A (NONE SEEN) #/HPF Urine Casts None seen (NONE SEEN) #/LPF Urine Mucus None seen (NONE SEEN) Ur Culture Indicated? [facility] Urine HCG, Qual Negative (NEGATIVE) Imaging Data CT scan - abdomen: Radiologist's impression: ITS Impressions Abdomen/Pelvis CT 10/02/24 19:38 IMPRESSION: Obstructing 8 x 6 mm proximal right ureteral stone with moderate hydronephrosis. Impression dictated by: Iftikhar Gibson M.D. 10/02/2024 8:11 PM Dictation Location: [place] [id number] Electronically authenticated by: [id number] Y Date: 10/02/2024 20:11 Discharge Plan Discharge Chief Complaint: Back Pain/Injury Clinical Impression: Urinary tract obstruction by kidney stone Patient Disposition: Home, Self-Care Time of Disposition Decision: 20:34 Condition: Good Prescriptions / Home Meds: New cephalexin 500 mg capsule 500 mg PO Q8H 7 Days Qty: 21 0RF oxycodone 5 mg tablet 5 mg PO Q6H PRN (Reason: pain) Qty: 12 0RF ondansetron 4 mg tablet,disintegrating 4 mg PO Q8H 4 Days Qty: 12 0RF No Action metformin 500 mg tablet 500 mg PO BID sertraline [Zoloft] 50 mg tablet 50 mg PO DAILY docusate sodium 100 mg capsule 100 mg PO DAILY Print Language: Albanian Instructions: Kidney Stones (ED) Referrals: Mirna Aguilera MD [Primary Care Provider, Urology] - As soon as possible Discharge Date/Time: 10/02/24 22:11
--- OUTSIDE RECORDS SUMMARY | 2024-10-02 19:46 | XMS_ITS | CCD ---
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 Name Role Phone JOSHUA ROSE Unavailable Unavailable JOSHUA ROSE Unavailable Unavailable JOSHUA ROSE Unavailable Unavailable JOSHUA ROSE Unavailable Unavailable Joby Sparks Unavailable DO Moe Mcmillan Primary Care Provider DO Moe Mcmillan Attending Provider DANNA, PHILL Consulting Unavailable DANNA, PHILL Attending Unavailable DANNA, PHILL Admitting Unavailable DANNA, PHILL Consulting Unavailable DANNA, PHILL Attending Unavailable DANNA, PHILL Admitting Unavailable DANNA, PHILL Admitting Unavailable DANNA, PHILL Consulting Unavailable DANNA, PHILL Attending Unavailable DO Moe Mcmillan Primary Care Provider ANNA Cat Emergency Provider Rebecca MCMILLAN Primary Care Physician DO Moe Mcmillan Primary Care Provider DO Moe Mcmillan Referring Provider MD Pippa Lane Attending Provider DO Moe Mcmillan Primary Care Provider DO Moe Mcmillan Referring Provider MD Pippa Lane Attending Provider DO Mandy Patel Attending Provider Mirna Aguilera Attending Unavailable Mirna Aguilera Attending Unavailable Mirna Aguilera Attending Unavailable Mirna Aguilera Admitting Unavailable MD Alok Sandhu Attending Provider [phone] Unavailable Primary Care Provider Unavailabl e LupisAnette espino DO Primary Care Provider Anette Mcmillan DO Unavailable Moe Mcmillan DO Primary Care Provider Moe Mcmillan DO Referring Provider Pippa Lane MD Attending Provider ADRIAN, SARA G Attending Unavailable SANDHYA, MARINA Referring Unavailable CARLO, BARBARA Referring Unavailable ADRIAN, SARA G Attending Unavailable CARLO, BARBARA Referring Unavailable SELF Referring Unavailable SANDHYA, MARINA Attending Unavailable SELF Referring Unavailable SANDHYA MARINA Attending Unavailable ADRIAN SARA G Referring Unavailable ADRIANALIDA MATAIANA G Attending Unavailable Moe Mcmillan DO Primary Care Provider [phone] Moe Mcmillan DO Referring Provider Pippa Lane MD Attending Provider [phone] Mandy Patel DO Attending Provider Moe Mcmillan DO Primary Care Provider oMe Mcmillan DO Referring Provider Pippa Lane MD Attending Provider Corina Hernandez MD Attending Provider Aric Norris APRN Emergency Provider Aric Norris APRN Emergency Provider Pippa Lane MD Attending Provider Moe Mcmillan DO Referring Provider NO FAMILY, PHYSICIAN Primary Care Provider Unava ilable Corina Hernandez MD Admit Provider Rj Aden MD Attending Provider RINKES, MANDY E Attending Unavailable RINKES, MANDY E Referring Unavailable RINKES, MANDY E Attending Unavailable RINKES, MANDY E Attending Unavailable ANETTE MCMILLAN Attending Unavailable ANETTE MCMILLAN Referring Unavailable RINKES, MANDY E Attending Unavailable RINKES, MANDY E Attending Unavailable RINKES, MANDY E Attending Unavailable RINKES, MANDY E Attending Unavailable RINKES, MANDY E Attending Unavailable RINKES, MANDY E Attending Unavailable RINKES, MANDY E Attending Unavailable RINKES, MANDY E Attending Unavailable RINKES, MANDY E Attending Unavailable RINKES, MANDY E Attending Unavailable ANETTE MCMILLAN Attending Unavailable Moe Mcmillan Primary Care Unavailable Hernandez, Penola P Admitting Unavailable David, Penola P Attending Unavailable Moe Mcmillan Primary Care Unavailable Hernandez, Penola P Admitting Unavailable Hernandez, Mauricioola P Attending Unavailable Moe Mcmillan Primary Care Unavailable Hernandez, Penola P Admitting Unavailable Hernandez, Penola P Attending Unavailable Rinkes, Mandy Admitting Unavailable Rinpeggy, Mandy Attending Unavailable Moe Mcmillan Primary Care Unavailable Rinkes, Mandy Attending Unavailable NO FAMILY, PHYSICIAN Primary Care Unavailable Rinkes, Mandy Admitting Unavailable Luis Norrisothy Admitting Unavailable Aric Norris Attending Unavailable Moe Mcmillan Primary Care Unavailable Aden, Rj Admitting Unavailable Markie, Rj Attending Unavailable Moe Mcmillan Primary Care Unavailable Aden, Rj Admitting Unavailable Markie, Rj Attending Unavailable Moe Mcmillan Primary Care Unavailable Al-Marrawi, Mhd Yaser Admitting Unavailabl e Al-Marjenny, Mhd Yaser Attending Unavailfern e Moe Mcmillan Primary Care Unavailable Moe Mcmillan Referring Unavailable Rinkes, Mandy Admitting Unavailable Rinpeggy, Mandy Attending Unavailable Moe Mcmillan Primary Care Unavailable Allergies Allergy Classification Reported Allergen(s) Allergy Type Date of Onset Reaction(s) Facility (20 sources) Zinc; Translations: [Zinc Sulfate] Drug Allergy 1 Weal (disorder), Hives [facility] (4 sources) Dairy; Translations: [Dairy] Propensity to adverse reactions to food Bowel problem (finding) [facility] [place] (20 sources) Lactase / Lactobacillus acidophilus Drug Allergy 4 [facility] Work Phone: Medications Current Medications Medication Drug Class(es) Dates Sig (Normalized) Sig (Original) cholecalciferol 0.025 mg oral capsule (5 sources) Vitamin D Start: 08-03-2024 take 1 capsule by mouth once daily dicyclomine hydrochloride 20 mg oral tablet (1 source) Anticholinergic Start: 07-09-2020 take 1 tablet by mouth three times daily as needed Dicyclomine HCl 20 MG 1 tablet Orally Three times a day PRN for 30 day(s) June, Active docusate sodium 100 mg oral capsule (3 sources) Start: 09-10-2024 take 1 capsule by mouth once daily {24 (drospirenone 3 MG / ethinyl estradiol 0.02 MG Oral Tablet) / 4 (inert ingredients 1 MG Oral Tablet) } Pack [Kyaw 28 Day] (1 source) Progestin, Estrogen take 1 tablet by mouth every twenty-four hours KYAW 3-0.02 MG 1 tablet Orally Once a day Active ibuprofen 800 mg oral tablet (3 sources) Nonsteroidal Anti-inflammatory Drug Start: 09-10-2024 take 1 tablet by mouth every eight hours as needed for pain mecobalamin 1 mg chewable tablet (5 sources) Start: 08-03-2024 take 1 tablet by mouth once daily metFORMIN hydrochloride 500 mg oral tablet (20 sources) Biguanide Start: 02-11-2023 take 1 tablet by mouth twice daily Start: 11-18-2022 take 1 tablet by marciano th three times daily at mealtime metFORMIN (Glucophage) 500 MG tablet Indications: PCOS (polycystic ovarian syndrome) TAKE ONE TABLET BY MOUTH THREE TIMES A DAY WITH A MEAL 90 tablet 11 12/15/2023 Active nystatin 100 unt/mg / triamcinolone acetonide 0.001 mg/mg topical ointment (2 sources) Polyene Antifungal, Corticosteroid Start: 09-21-2024 End: 09-28-2024 nystatin-triamcinolone (Mycolog II) ointment Indications: Acute vulvitis Apply topically in the morning and before bedtime. Do all this for 7 days. 30 g 2 09/21/2024 09/28/2024 Active Pnv No.162-Iron Glu-Folic Acid 12-1 mg tablet (8 sources) Start: 02-23-2024 take 1 tablet by mouth once daily Pnv No.162-Iron Glu-Folic Acid 12-1 mg tablet Active 1 TAB PO Daily February 23, 2024 1:00am Complies with drug therapy Start: 02-23-2024 take 1 tablet by mouth once da amelia Start: 02-23-2024 take 1 tablet by mouth once da amelia Pnv No.162-Iron Glu-Folic Acid 12-1 mg tablet Active 1 TAB PO Daily February 23, 2024 1:00am Start: 02-23-2024 Pnv No.162-Iro n Glu-Folic Acid 12-1 mg tablet Active TAB PO February 23, 2024 1:00am Start: 02-23-2024 Pnv No.162-Iro n Glu-Folic Acid 12-1 mg tablet Active TAB PO February 23, 2024 12:00am Aruybruz-Ik-Xzr-Fe-FA tab (3 sources) Start: 01-21-2024 take 1 tablet by mouth once daily Gsntqsyz-Ds-Nuv-Fe-FA tab Take 1 tablet by mouth once daily. 01/21/2024 Active Vit w/Md-Jwuxiyvoj-SA (PNV PO) (20 sources) Vit w/Cm-Riqswxbjh-XZ (PNV PO) Take by mouth Active sertraline 50 mg oral tablet (20 sources) Serotonin Reuptake Inhibitor Start: 09-21-2024 End: 09-21-2025 take 1 tablet by mouth once daily sertraline (Zoloft) 50 MG tablet Indications: anxiety (HHS-HCC) Take 1 tablet (50 mg) by mouth Daily 90 tablet 3 09/21/2024 09/21/2025 Active Start: 11-16-2023 End: 09-21-2024 take 1 tablet by mouth once daily sertraline (Zoloft) 25 MG tablet Indications: Depression, unspecified depression type , Mixed anxiety and depressive disorder Take 1 tablet (25 mg) by mouth Daily 30 tablet 3 08/28/2024 09/21/2024 Discontinued (Ineffective) Start: 10-20-2023 take 1 tablet by marciano th once daily sertraline (Zoloft) 25 MG tablet Indications: Depression, unspecified depression type (CMS/HCC) , Mixed anxiety and depressive disorder Take 1 tablet (25 mg) by mouth Daily 30 tablet 3 10/20/2023 Active vitamin b12 0.1 mg oral tablet (20 sources) Vitamin B12 take 1 tablet by mouth once daily cyanocobalamin (Vitamin B-12) 100 MCG tablet Take 100 mcg by mouth Daily Active Completed/Discontinued Medications Medication Drug Class(es) Dates Sig (Normalized) Sig (Original) acetaminophen 325 mg / HYDROcodone bitartrate 5 mg oral tablet (16 sources) Opioid Agonist Start: 01-28-2023 End: 07-08-2023 take 1 tablet by mouth every four to six hours as needed for pain Hydrocodone-Acetam inophen 5-325 mg tablet Discontinued 1 TAB PO EVERY 4-6 HOURS as needed for pain 12 January 28, 2023 July 08, 2023 9:28am aspirin 81 mg delayed release oral tablet (20 sources) Platelet Aggregation Inhibitor, Nonsteroidal Anti-inflammatory Drug Start: 05-25-2024 End: 09-11-2024 take 1 tablet by mouth once daily Aspirin 81 mg tablet,delayed release (DR/EC) Discontinued 81 MG PO Daily May 25, 2024 12:00am September 11, 2024 11:30am End: 09-21-2024 BABY ASPIRIN PO Take by mout h 09/21/2024 Discontinued BABY ASPIRIN PO Take by mouth Active cephalexin 500 mg oral capsule (19 sources) Cephalosporin Antibacterial Start: 09-01-2024 End: 09-09-2024 take 1 capsule by mouth three times daily Cephalexin 500 mg capsule Discontinued 500 MG PO Three times daily 14 12September 01, 2024 12:00am September 09, 2024 5:20am Start: 01-28-2023 End: 07-08-2023 take 1 capsule by mouth three times daily Cephalexin 500 mg capsule Discontinued 500 MG PO Three times daily 14 12January 28, 2023 1:00am July 08, 2023 9:28am clomiPHENE citrate 50 mg oral tablet (4 sources) Estrogen Agonist/Antagonist Start: 10-13-2023 End: 01-20-2024 clomiPHENE (Clomid) 50 MG tablet Indications: Anovulation Take 2 tablets (100 mg) PO on days 5-9 of cycle 10 tablet 10/13/2023 01/20/2024 Discontinued 24 hr desvenlafaxine succinate 50 mg extended release oral tablet (20 sources) Serotonin and Norepinephrine Reuptake Inhibitor Start: 02-11-2023 End: 02-23-2024 take 1 tablet by mouth once daily, then take 1 tablet by mouth every twenty-fou r hours Desvenlafaxine Succinate (Pristiq) 50 mg tablet extended release 24 hr Discontinued 50 MG PO Daily July 08, 2023 12:00am February 23, 2024 4:01pm doxycycline hyclate 100 mg oral capsule (3 sources) Tetracycline-class Drug Start: 09-15-2023 End: 10-20-2023 doxycycline (Vibramycin) 100 MG capsule Indications: Anovulation Take one by mouth the night before procedure and 1 by mouth the morning of procedure 2 capsule 09/15/2023 10/20/2023 Discontinued Drospirenone-E.Estr adiol-Lm.Fa (17 sources) Progestin, Estrogen Start: 06-26-2020 End: 07-08-2023 Drospirenone-E.Est radiol-Lm.Fa 3-0.03-0.451 mg (21) (7) Tablet Discontinued 1 TAB PO Daily June 26, 2020 12:00am July 08, 2023 9:28am Start: 06-26-2020 End: 07-08-2023 Drospirenone-E.Estradiol-Lm. Fa 3-0.03-0.451 mg (21) (7) Tablet Discontinued 1 TAB PO Daily June 25, 2020 11:00pm July 08, 2023 8:28am Start: 06-26-2020 End: 07-08-2023 take 1 tablet by mouth once daily Drospirenone-E.Estradiol-Lm.Fa Discontin ued 1 TAB PO Daily June 26, 2020 12:00am July 08, 2023 9:28am Start: 06-26-2020 take 1 tablet by marciano th once daily Drospirenone-E.Estradiol-Lm.Fa Active 1 TAB PO Daily June 25, 2020 11:00pm escitalopram 20 mg oral tablet (18 sources) Serotonin Reuptake Inhibitor Start: 06-26-2020 End: 07-08-2023 take 1 tablet by mouth once daily Escitalopram Oxalate 20 mg Tablet Discontinued 20 MG PO Daily June 26, 2020 12:00am July 08, 2023 9:28am ferrous sulfate 325 mg oral tablet (20 sources) Start: 05-25-2024 End: 09-11-2024 take 1 tablet by mouth twice daily Ferrous Sulfate 325 mg (65 mg iron) tablet Discontinued 325 MG PO Twice daily May 25, 2024 12:00am September 11, 2024 11:30am Start: 05-25-2024 take 1 tablet by mouth once da amelia Ferrous Sulfate 325 mg (65 mg iron) tablet Active 325 MG PO Daily May 25, 2024 12:00am Start: 01-21-2024 take 1 tablet by marciano th twice daily ferrous sulfate (IRON) 325 mg (65 mg iron) tablet Take 1 tablet by mouth two times a day. 01/21/2024 Active 30 actuat fluticasone furoate 0.05 mg/actuat dry powder inhaler (15 sources) Corticosteroid Start: 07-08-2023 End: 07-22-2024 Fluticasone Furoate 50 mcg/actuation blister with device Discontinued 2 INH INHALATION Daily July 08, 2023 12:00am July 22, 2024 9:42am hydrOXYzine hydrochloride 25 mg oral tablet (3 sources) Antihistamine Start: 10-20-2023 End: 01-20-2024 take 1 tablet by mouth every six hours for anxiety hydrOXYzine HCl (Atarax) 25 MG tablet Indications: Depression, unspecified depression type (CMS/HCC) , Mixed anxiety and depressive disorder Take 1 tablet (25 mg) by mouth every 6 (six) hours if needed for anxiety 30 tablet 10/20/2023 01/20/2024 Discontinued ondansetron 4 mg disintegrating oral tablet (16 sources) Serotonin-3 Receptor Antagonist Start: 01-28-2023 End: 07-08-2023 take 1 tablet by mouth every eight hours as needed for nausea and vomiting Ondansetron 4 mg tablet,disintegrat ing Discontinued 4 MG PO Q8H as needed for nausea and vomiting 10 18January 28, 2023 1:00am July 08, 2023 9:28am tamsulosin hydrochloride 0.4 mg oral capsule (16 sources) alpha-Adrenergic Arleen Start: 01-28-2023 End: 07-08-2023 take 1 capsule by mouth once daily Tamsulosin (Flomax) 0.4 mg capsule Discontinued 0.4 MG PO Daily January 28, 2023 1:00am July 08, 2023 9:28am Problems Active Problems Problem Classification Problem Date Documented Da te Episodic/Chronic Abdominal pain (1 source) Right upper quadrant pain; Translations: [Right upper quadrant pain] Onset: 07-01-2024 Episodic Administrative/social admission (6 sources) Encounter for pre-employment examination; Translations: [Treatment plan given] Onset: 07-02-2021 Episodic Anxiety disorders (20 sources) Mixed anxiety and depressive disorder; Translations: [Other specified anxiety disorders] Onset: 01-16-2020 07-16-2022 Chronic Contraceptive and procreative management (14 sources) Patient encounter status; Translations: [Encounter for fertility testing] Onset: 12-13-2023 12-13-2023 Episodic Deficiency and other anemia (12 sources) Acquired iron deficiency anemia due to increased iron requirement; Translations: [Other iron deficiency anemias] 05-25-2024 Episodic Deficiency and other anemia (3 sources) Other iron deficiency anemias; Translations: [Iron deficiency anemia secondary to inadequate dietary iron intake] Onset: 08-03-2024 05-25-2024 Episodic Diseases of white blood cells (20 sources) Leukocytosis; Translations: [Elevated white blood cell count, unspecified] Onset: 10-20-2023 07-14-2023 Chronic Disorders of lipid metabolism (20 sources) Hyperlipidemia; Translations: [Hyperlipidemia, unspecified] Onset: 06-10-2020 02-11-2023 Chronic Female infertility (4 sources) Female infertility; Translations: [Female infertility, unspecified] Onset: 11-01-2023 12-13-2023 Chronic Genitourinary symptoms and ill-defined conditions (4 sources) Other symptoms and signs involving the genitourinary system; Translations: [Bladder pain] Onset: 02-11-2023 Episodic Headache; including migraine (1 source) Headache; including migraine; Translations: [Headache, unspecified] Onset: 09-01-2024 Inflammatory diseases of female pelvic organs (2 sources) Acute vulvitis; Translations: [Acute vulvitis] 09-21-2024 Episodic Menstrual disorders (2 sources) Irregular periods; Translations: [Irregular menstruation, unspecified] Onset: 12-13-2023 12-13-2023 Chronic Mood disorders (20 sources) Depressive disorder; Translations: [Premenstrual dysphoric disorder] Onset: 01-16-2020 02-11-2023 Chronic Nutritional deficiencies (2 sources) Vitamin D deficiency; Translations: [Vitamin D deficiency, unspecified] Onset: 12-13-2023 12-13-2023 Chronic Other complications of ; puerperium affecting management of mother (1 source) Hypogalactia; Translations: [Hypogalactia] Onset: 09-14-2024 Episodic Other complications of (1 source) Anemia complicating , third trimester; Translations: [Anemia complicating , third trimester] Onset: 09-08-2024 Chronic Other complications of (1 source) Reduced movement; Translations: [Decreased movements, third trimester, not applicable or unspecified] 08-31-2024 Episodic Other complications of (2 sources) Other mental disorders complicating the puerperium; Translations: [Mental disorders of mother, condition or complication] 09-21-2024 Episodic Other diseases of kidney and ureters (1 source) Urinary tract obstruction; Translations: [Hydronephrosis with renal and ureteral calculous obstruction] Onset: 02-10-2023 Episodic Other endocrine disorders (1 source) Polycystic ovary syndrome; Translations: [Polycystic ovarian syndrome] 03-02-2024 Chronic Other gastrointestinal disorders (1 source) Irritable bowel syndrome with diarrhea; Translations: [Irritable bowel syndrome with diarrhea] Chronic Other gastrointestinal disorders (1 source) Irritable bowel syndrome with diarrhea Onset: 12-18-2020 Resolved: 12-18-2020 Chronic Other nutritional; endocrine; and metabolic disorders (8 sources) Obese class I; Translations: [Obesity, Class I, BMI 30-34.9] Onset: 12-14-2023 12-14-2023 Chronic Other and delivery including normal (20 sources) test positive; Translations: [Encounter for test, result positive] Onset: 02-01-2024 01-18-2024 Episodic Other screening for suspected conditions (not mental disorders or infectious disease) (4 sources) Cancer cervix screening status; Translations: [Encounter for screening for malignant neoplasm of cervix] Onset: 06-24-2024 03-02-2024 Episodic Other upper respiratory infections (7 sources) Pharyngitis; Translations: [Acute pharyngitis, unspecified] Onset: 07-22-2024 07-22-2024 Episodic Residual codes; unclassified (1 source) Family history of kidney disease; Translations: [Family history of disorders of kidney and ureter] Onset: 02-11-2023 Episodic Residual codes; unclassified (3 sources) Family history of renal stone 02-11-2023 Episodic Residual codes; unclassified (2 sources) Gestation period, 12 weeks; Translations: [12 weeks gestation of ] 03-02-2024 Episodic Residual codes; unclassified (2 sources) Gestation period, 16 weeks; Translations: [16 weeks gestation of ] 03-30-2024 Episodic Residual codes; unclassified (2 sources) Gestation period, 24 weeks; Translations: [24 weeks gestation of ] 05-26-2024 Episodic Residual codes; unclassified (2 sources) Gestation period, 28 weeks; Translations: [28 weeks gestation of ] 06-23-2024 Episodic Residual codes; unclassified (2 sources) Gestation period, 30 weeks; Translations: [30 weeks gestation of ] 07-06-2024 Episodic Residual codes; unclassified (2 sources) Gestation period, 32 weeks; Translations: [32 weeks gestation of ] 07-19-2024 Episodic Residual codes; unclassified (2 sources) Gestation period, 34 weeks; Translations: [34 weeks gestation of ] 08-04-2024 Episodic Residual codes; unclassified (2 sources) Gestation period, 36 weeks; Translations: [36 weeks gestation of ] 08-24-2024 Episodic Residual codes; unclassified (5 sources) Gestation period, 37 weeks; Translations: [37 weeks gestation of ] 08-25-2024 Episodic Residual codes; unclassified (8 sources) Gestation period, 38 weeks; Translations: [38 weeks gestation of ] 09-05-2024 Episodic Residual codes; unclassified (6 sources) History of past delivery; Translations: [Personal history of other genital system and obstetric disorders] 09-11-2024 Episodic Unclassified (3 sources) CONTACT W/AND (SUSP) EXPOS COVID-19; Translations: [CONTACT W/AND (SUSP) EXPOS COVID-19] Onset: 01-07-2022 Unclassified (3 sources) Obstructive hydronephrosis 02-10-2023 Unclassified (1 source) Onset: 01-21-2024 Unclassified (10 sources) Call office Wednesday to be seen possibly on Wednesday. Urinary tract infections (16 sources) Acute urinary tract infection; Translations: [Urinary tract infection, site not specified] 01-28-2023 Episodic Past or Other Problems Problem Classification Problem Date Documented Da te Episodic/Chronic Calculus of urinary tract (20 sources) Kidney stone; Translations: [Calculus of kidney] Onset: 02-11-2023 01-28-2023 Episodic Diabetes mellitus without complication (20 sources) Prediabetes; Translations: [Prediabetes] Onset: 03-11-2023 02-11-2023 Episodic Immunizations and screening for infectious disease (20 sources) Anti-nuclear factor positive; Translations: [Other specified abnormal immunological findings in serum] Onset: 10-20-2023 08-04-2023 Episodic Nutritional deficiencies (20 sources) Iron deficiency; Translations: [Iron deficiency] Onset: 10-20-2023 08-04-2023 Episodic Other diseases of kidney and ureters (20 sources) Hydronephrosis with renal and ureteral calculous obstruction; Translations: [Calculus of ureter] Onset: 03-11-2023 03-11-2023 Episodic Other gastrointestinal disorders (1 source) Altered bowel function; Translations: [Change in bowel habit] Episodic Other gastrointestinal disorders (1 source) Diarrhea; Translations: [Diarrhea, unspecified] Episodic Residual codes; unclassified (20 sources) Insomnia; Translations: [Insomnia, unspecified] Onset: 03-19-2020 07-16-2022 Episodic Unclassified (1 source) CONTACT W/AND (SUSP) EXPOS COVID-19; Translations: [CONTACT W/AND (SUSP) EXPOS COVID-19] Onset: 01-05-2022 Results Test Name Value Interpretation Reference Range Facil ity Basophils [#/volume] in Bloo d by Automated countOrdered By: MINNA Hernandez on 09-10-2024 Basophils (Bld) [#/Vol] 0.1 10*3/uL Normal 0.0-0.2 [facility] Comment on above: Result Comment: PERF ORMED BY: [facility] [address] [place] [address] PATHOLOGIST TEACHER OF THE DEAF/HARD OF HEARING MICHELLE BENNETT M.D. Performed By: #### V [id number], JULIA, CBC, FE and TIBC #### [facility] [address] Basophils/100 leukocytes in Blood by Automated countOrdered By: MINNA Hernadnez on 09-10-2024 Basophils/100 WBC (Bld) 0.6 % Normal . [facility] Comment on above: Performed By: #### V [id number], JULIA, CBC, FE and TIBC #### [facility] [address] CBC W Auto Differential pane l (Bld)on 09-10-2024 Basophils (Bld) [#/Vol] 0.1 10*3/uL 0.0 - 0.2 10*3/uL [facility] Basophils/100 WBC Manual cnt (Syn fld) 0.6 % . [facility] Eosinophils (Bld) [#/Vol] 0.2 10*3/uL 0.0 - 0.45 10*3/uL [facility] Eosinophils/100 WBC Manual cnt (Syn fld) 1.7 % . [facility] Erythrocyte distribution width (RBC) [Ratio] 13.7 % 11.9 - 15.3 % [facility] Hematocrit (Bld) [Volume fraction] 33 % Low 34.0 - 46.4 % [facility] Hemoglobin (Bld) [Mass/Vol] 11.1 g/dL Low 11.8 - 15.4 g/dL [facility] Interpretation and review of laboratory results Abnormal [facility] Lymphocytes (Bld) [#/Vol] 2.6 10*3/uL 1.00 - 4.8 10*3/uL [facility] Lymphocytes/100 WBC Manual cnt (Syn fld) 18.2 % . [facility] MCH (RBC) [Entitic mass] 30.2 pg 24.7 - 34.3 pg [facility] MCHC (RBC) [Mass/Vol] 33.5 g/dL 32.0 - 35.0 g/dL [facility] MCV (RBC) [Entitic vol] 90.3 fL 80 - 100 fL [facility] Monocytes (Bld) [#/Vol] 0.8 10*3/uL 0.0 - 0.8 10*3/uL [facility] Monocytes+Macrophages/ 100 WBC Manual cnt (Syn fld) 5.7 % . [facility] Neutrophils (Bld) [#/Vol] 10.7 10*3/uL High 1.8 - 7.7 10*3/uL [facility] Neutrophils/100 WBC Manual cnt (Syn fld) 73.8 % . [facility] NRBC 0 /100{WBC} 0 - 0.5 /100{WBC} [facility] Platelet mean volume (Bld) [Entitic vol] 7.8 fL 6.3 - 10.7 fL [facility] Platelets (Bld) [#/Vol] 266 10*3/uL 150 - 450 10*3/uL [facility] RBC LM.HPF (Urine sed) [#/Area] 3.66 10*6/uL 3.60 - 5.00 10*6/uL [facility] WBC (Bld) [#/Vol] 14.4 10*3/uL High 3.8 - 11.6 10*3/uL [facility] WBC LM.HPF (Urine sed) [#/Area] 14.4 [CFU]/mL High 3.8 - 11.6 [CFU]/mL [facility] Complete Blood Count Auto Di ffon 09-10-2024 Mean Corpuscular HGB Conc 33.5 g/dL Normal 32.0-35.0 [facility] Comment on above: Performed By: #### V [id number], JULIA, CBC, FE and TIBC #### [facility] [address] NRBC% 0.0 /100{WBC} Normal 0-0.5 [facility] Comment on above: Performed By: #### V [id number], JULIA, CBC, FE and TIBC #### [facility] [address] White Blood Count 14.4 [CFU]/mL High 3.8-11.6 [facility] Comment on above: Performed By: #### V [id number], JULIA, CBC, FE and TIBC #### [facility] [address] Eosinophils [#/volume] in Bl ood by Automated countOrdered By: MINNA Hernandez on 09-10-2024 Eosinophils (Bld) [#/Vol] 0.2 10*3/uL Normal 0.0-0.45 [facility] Comment on above: Performed By: #### V [id number], JULIA, CBC, FE and TIBC #### [address] Eosinophils/100 leukocytes i n Blood by Automated countOrdered By: MINNA Hernandez on 09-10-2024 Eosinophils/100 WBC (Bld) 1.7 % Normal . [facility] Comment on above: Performed By: #### V [id number], JULIA, CBC, FE and TIBC #### [address] Erythrocyte distribution wid th [Ratio] by Automated countOrdered By: MINNA Hernandez on 09-10-2024 Erythrocyte distribution width (RBC) [Ratio] 13.7 % Normal 11.9-15.3 [facility] Comment on above: Performed By: #### V [id number], JULIA, CBC, FE and TIBC #### [address] Erythrocytes [#/volume] in B lood by Automated countOrdered By: MINNA Hernandez on 09-10-2024 RBC (Bld) [#/Vol] 3.66 10*6/uL Normal 3.60-5.00 [facility] Comment on above: Performed By: #### V [id number], JULIA, CBC, FE and TIBC #### [address] Hematocrit [Volume Fraction] of Blood by Automated countOrdered By: MINNA Hernandez on 09-10-2024 Hematocrit (Bld) [Volume fraction] 33.0 % Low 34.0-46.4 [facility] Comment on above: Performed By: #### V [id number], JULIA, CBC, FE and TIBC #### [facility] [address] Hemoglobin [Mass/volume] in BloodOrdered By: MINNA Hernandez on 09-10-2024 Hemoglobin (Bld) [Mass/Vol] 11.1 g/dL Low 11.8-15.4 [facility] Comment on above: Performed By: #### V [id number], JULIA, CBC, FE and TIBC #### [facility] [address] Leukocytes [#/volume] correc leroy for nucleated erythrocytes in Blood by Automated counOrdered By: MINNA Hernandez on 09-10-2024 WBC corrected for nucl RBC Auto (Bld) [#/Vol] 14.4 10*3/uL High 3.8-11.6 [facility] Leukocytes [#/volume] in Blo od by Automated countOrdered By: MINNA Hernandez on 09-10-2024 WBC (Bld) [#/Vol] 14.4 10*3/uL High 3.8-11.6 [facility] Comment on above: Performed By: #### V [id number], JULIA, CBC, FE and TIBC #### [facility] [address] [place] [address] Lymphocytes [#/volume] in Bl ood by Automated countOrdered By: MINNA Hernandez on 09-10-2024 Lymphocytes (Bld) [#/Vol] 2.6 10*3/uL Normal 1.00-4.8 [facility] Comment on above: Performed By: #### V [id number], JULIA, CBC, FE and TIBC #### [place] [address] [place] Lymphocytes/100 leukocytes i n Blood by Automated countOrdered By: MINNA Hernandez on 09-10-2024 Lymphocytes/100 WBC (Bld) 18.2 % Normal . [facility] Comment on above: Performed By: #### V [id number], JULIA, CBC, FE and TIBC #### [facility] [address] MCH [Entitic mass] by Automa leroy countOrdered By: MINNA Hernandez on 09-10-2024 MCH (RBC) [Entitic mass] 30.2 pg Normal 24.7-34.3 [facility] Comment on above: Performed By: #### V [id number], JULIA, CBC, FE and TIBC #### [address] MCHC Auto (RBC) [Mass/Vol]Or dered By: MINNA Hernandez on 09-10-2024 MCHC (RBC) [Mass/Vol] 33.5 g/dL 32.0-35.0 [facility] MCV [Entitic volume] by Auto mated countOrdered By: MINNA Hernandez on 09-10-2024 MCV (RBC) [Entitic vol] 90.3 fL Normal 80-100 [facility] Comment on above: Performed By: #### V [id number], JULIA, CBC, FE and TIBC #### [address] Monocytes [#/volume] in Bloo d by Automated countOrdered By: MINNA Hernandez on 09-10-2024 Monocytes (Bld) [#/Vol] 0.8 10*3/uL Normal 0.0-0.8 [facility] Comment on above: Performed By: #### V [id number], JULIA, CBC, FE and TIBC #### [address] Monocytes/100 leukocytes in Blood by Automated countOrdered By: MINNA Hernandez on 09-10-2024 Monocytes/100 WBC (Bld) 5.7 % Normal . [facility] Comment on above: Performed By: #### V [id number], JULIA, CBC, FE and TIBC #### [address] [address] [place] Neutrophils [#/volume] in Bl ood by Automated countOrdered By: MINNA Hernandez on 09-10-2024 Neutrophils (Bld) [#/Vol] 10.7 10*3/uL High 1.8-7.7 [facility] Comment on above: Performed By: #### V [id number], JULIA, CBC, FE and TIBC #### [facility] [address] [place] [address] [place] Neutrophils/100 leukocytes i n Blood by Automated countOrdered By: MINNA Hernandez on 09-10-2024 Neutrophils/100 WBC (Bld) 73.8 % Normal . [facility] Comment on above: Performed By: #### V [id number], JULIA, CBC, FE and TIBC #### [facility] [address] [place] [address] Nucleated erythrocytes [Pres ence] in Blood by Automated countOrdered By: MINNA Hernandez on 09-10-2024 Nucleated RBC Auto Ql (Bld) 0.0 /100{WBC} 0-0.5 [facility] Platelet mean volume [Entiti c volume] in Blood by Automated countOrdered By: MARY Hernandez on 09-10-2024 Platelet mean volume (Bld) [Entitic vol] 7.8 fL Normal 6.3-10.7 [facility] Comment on above: Performed By: #### V [id number], JULIA, CBC, FE and TIBC #### [facility] [address] [place] [address] Platelets [#/volume] in Bloo d by Automated countOrdered By: MINNA Hernandez on 09-10-2024 Platelets (Bld) [#/Vol] 266 10*3/uL Normal 150-450 [facility] Comment on above: Performed By: #### V [id number], JULIA, CBC, FE and TIBC #### [facility] [address] [place] [address] RPR W/RFX TO QUANT & TP ABS ([facility])on 09-10-2024 RPR, RFX QUANT RPR Non-Reactive Non Reactive NO [facility] Comment on above: Performed at: [address] [id number] Field Sampling Technician: Harsha Villanueva PhD, Phone: [phone] [facility] CBC W Auto Differential pane l (Bld)on 09-09-2024 Basophils (Bld) [#/Vol] 0.1 10*3/uL 0.0 - 0.2 10*3/uL [facility] Basophils/100 WBC Manual cnt (Syn fld) 0.3 % . [facility] Eosinophils (Bld) [#/Vol] 0 10*3/uL 0.0 - 0.45 10*3/uL [facility] Eosinophils/100 WBC Manual cnt (Syn fld) 0.1 % . [facility] Erythrocyte distribution width (RBC) [Ratio] 13.4 % 11.9 - 15.3 % [facility] Hematocrit (Bld) [Volume fraction] 36.2 % 34.0 - 46.4 % [facility] Hemoglobin (Bld) [Mass/Vol] 12.2 g/dL 11.8 - 15.4 g/dL [facility] Interpretation and review of laboratory results Abnormal [facility] Lymphocytes (Bld) [#/Vol] 2.9 10*3/uL 1.00 - 4.8 10*3/uL [facility] Lymphocytes/100 WBC Manual cnt (Syn fld) 15.1 % . [facility] MCH (RBC) [Entitic mass] 30.4 pg 24.7 - 34.3 pg [facility] MCHC (RBC) [Mass/Vol] 33.6 g/dL 32.0 - 35.0 g/dL [facility] MCV (RBC) [Entitic vol] 90.6 fL 80 - 100 fL [facility] Monocytes (Bld) [#/Vol] 1 10*3/uL High 0.0 - 0.8 10*3/uL [facility] Monocytes+Macrophages/ 100 WBC Manual cnt (Syn fld) 5.3 % . [facility] Neutrophils (Bld) [#/Vol] 15 10*3/uL High 1.8 - 7.7 10*3/uL [facility] Neutrophils/100 WBC Manual cnt (Syn fld) 79.2 % . [facility] NRBC 0.1 /100{WBC} 0 - 0.5 /100{WBC} [facility] Platelet mean volume (Bld) [Entitic vol] 8.5 fL 6.3 - 10.7 fL [facility] Platelets (Bld) [#/Vol] 310 10*3/uL 150 - 450 10*3/uL [facility] RBC LM.HPF (Urine sed) [#/Area] 4 10*6/uL 3.60 - 5.00 10*6/uL [facility] WBC (Bld) [#/Vol] 18.9 10*3/uL High 3.8 - 11.6 10*3/uL [facility] WBC LM.HPF (Urine sed) [#/Area] 18.9 [CFU]/mL High 3.8 - 11.6 [CFU]/mL [facility] Comment Draw at 630 am [facility] Complete Blood Count Auto Di ffon 09-09-2024 Basophils (Bld) [#/Vol] 0.1 10*3/uL Normal 0.0-0.2 [facility] Comment on above: Order Comment: Comme nt Draw at 630 am Result Comment: PERF ORMED BY: [place] [address] PATHOLOGIST TEACHER OF THE DEAF/HARD OF HEARING MICHELLE BENNETT M.D. Performed By: #### V [id number], JULIA, CBC, FE and TIBC #### [place] [address] [place] Basophils/100 WBC (Bld) 0.3 % Normal . [facility] Comment on above: Order Comment: Comme nt Draw at 630 am Performed By: #### V [id number], JULIA, CBC, FE and TIBC #### [place] [address] [place] Eosinophils (Bld) [#/Vol] 0.0 10*3/uL Normal 0.0-0.45 [facility] Comment on above: Order Comment: Comme nt Draw at 630 am Performed By: #### V [id number], JULIA, CBC, FE and TIBC #### [place] [address] [place] Eosinophils/100 WBC (Bld) 0.1 % Normal . [facility] Comment on above: Order Comment: Comme nt Draw at 630 am Performed By: #### V [id number], JULIA, CBC, FE and TIBC #### [address] Erythrocyte distribution width (RBC) [Ratio] 13.4 % Normal 11.9-15.3 [facility] Comment on above: Order Comment: Comme nt Draw at 630 am Performed By: #### V [id number], JULIA, CBC, FE and TIBC #### [address] Hematocrit (Bld) [Volume fraction] 36.2 % Normal 34.0-46.4 [facility] Comment on above: Order Comment: Comme nt Draw at 630 am Performed By: #### V [id number], JULIA, CBC, FE and TIBC #### [address] Hemoglobin (Bld) [Mass/Vol] 12.2 g/dL Normal 11.8-15.4 [facility] Comment on above: Order Comment: Comme nt Draw at 630 am Performed By: #### V [id number], JULIA, CBC, FE and TIBC #### [address] Lymphocytes (Bld) [#/Vol] 2.9 10*3/uL Normal 1.00-4.8 [facility] Comment on above: Order Comment: Comme nt Draw at 630 am Performed By: #### V [id number], JULIA, CBC, FE and TIBC #### [address] Lymphocytes/100 WBC (Bld) 15.1 % Normal . [facility] Comment on above: Order Comment: Comme nt Draw at 630 am Performed By: #### V [id number], JULIA, CBC, FE and TIBC #### [address] MCH (RBC) [Entitic mass] 30.4 pg Normal 24.7-34.3 [facility] Comment on above: Order Comment: Comme nt Draw at 630 am Performed By: #### V [id number], JULIA, CBC, FE and TIBC #### [address] MCV (RBC) [Entitic vol] 90.6 fL Normal 80-100 [facility] Comment on above: Order Comment: Comme nt Draw at 630 am Performed By: #### V [id number], JULIA, CBC, FE and TIBC #### [address] Mean Corpuscular HGB Conc 33.6 g/dL Normal 32.0-35.0 [facility] Comment on above: Order Comment: Comme nt Draw at 630 am Performed By: #### V [id number], JULIA, CBC, FE and TIBC #### [address] Monocytes (Bld) [#/Vol] 1.0 10*3/uL High 0.0-0.8 [facility] Comment on above: Order Comment: Comme nt Draw at 630 am Performed By: #### V [id number], JULIA, CBC, FE and TIBC #### [address] Monocytes/100 WBC (Bld) 5.3 % Normal . [facility] Comment on above: Order Comment: Comme nt Draw at 630 am Performed By: #### V [id number], JULIA, CBC, FE and TIBC #### [address] Neutrophils (Bld) [#/Vol] 15.0 10*3/uL High 1.8-7.7 [facility] Comment on above: Order Comment: Comme nt Draw at 630 am Performed By: #### V [id number], JULIA, CBC, FE and TIBC #### [address] Neutrophils/100 WBC (Bld) 79.2 % Normal . [facility] Comment on above: Order Comment: Comme nt Draw at 630 am Performed By: #### V [id number], JULIA, CBC, FE and TIBC #### [address] NRBC% 0.1 /100{WBC} Normal 0-0.5 [facility] Comment on above: Order Comment: Comme nt Draw at 630 am Performed By: #### V [id number], JULIA, CBC, FE and TIBC #### [address] Platelet mean volume (Bld) [Entitic vol] 8.5 fL Normal 6.3-10.7 [facility] Comment on above: Order Comment: Comme nt Draw at 630 am Performed By: #### V [id number], JULIA, CBC, FE and TIBC #### [address] Platelets (Bld) [#/Vol] 310 10*3/uL Normal 150-450 [facility] Comment on above: Order Comment: Comme nt Draw at 630 am Performed By: #### V [id number], JULIA, CBC, FE and TIBC #### [address] RBC (Bld) [#/Vol] 4.00 10*6/uL Normal 3.60-5.00 [facility] Comment on above: Order Comment: Comme nt Draw at 630 am Performed By: #### V [id number], JULIA, CBC, FE and TIBC #### [address] WBC (Bld) [#/Vol] 18.9 10*3/uL High 3.8-11.6 [facility] Comment on above: Order Comment: Comme nt Draw at 630 am Performed By: #### V [id number], JULIA, CBC, FE and TIBC #### [address] White Blood Count 18.9 [CFU]/mL High 3.8-11.6 [facility] Comment on above: Order Comment: Comme nt Draw at 630 am Performed By: #### V [id number], JULIA, CBC, FE and TIBC #### [facility] [address] [place] [address] OB URINE DRUG SCREEN (NO THC )on 09-09-2024 AMPHETAMINE SCREEN,URINE Negative Negative [facility] BARBITURATE SCREEN,URINE Negative Negative [facility] BENZODIAZEPINES SCREEN,URINE Negative Negative [facility] COCAINE SCREEN,URINE Negative Negative [facility] OPIATE SCREEN,URINE Negative Negative [facility] PHENCYCLIDINE SCREEN, URINE Negative Negative [facility] Comment on above: These are unconfirme d results and should not be used for legal purposes. Drug Cut-Off Concentration: AMPH 1000 ng/mL SHERICE 200 ng/mL ANA 200 ng/mL COCM 300 ng/mL OP 300 ng/mL PCP 25 ng/mL Comment s/s of acute impairment [facility] ABO/RH Typeon 09-08-2024 ABO and Rh group Nom (Bld) Blood group A Rh(D) positive Normal [facility] Comment on above: Result Comment: PERF ORMED BY: [place] [address] PATHOLOGIST TEACHER OF THE DEAF/HARD [employer] HEARING MICHELLE BENNETT M.D. Amphetamine Screen Ql (U)Ord ered By: MINNA Hernandez on 09-08-2024 Amphetamines Ql (U) Negative Negative [facility] Appearance of UrineOrdered B y: MINNA Hernandez on 09-08-2024 Appearance (U) Cloudy Critically abnormal Clear [facility] Comment on above: Order Comment: Comme nt c/o urinary symptoms or increased blood pressure Name Collection Type:: Clean-Voided Midstream Performed By: #### C MP, URIC #### [facility] [address] [place] [address] Bacteria [Presence] in Urine by AutomatedOrdered By: MINNA Hernandez on 09-08-2024 Bacteria Auto Ql (U) Rare [HPF] None Seen [facility] Barbiturates [Presence] in U rine by Screen methodOrdered By: MINNA Hernandez on 09-08-2024 Barbiturates Screen Ql (U) Negative Negative [facility] Benzodiazepines Screen Ql (U )Ordered By: MINNA Hernandez on 09-08-2024 Benzodiazepines Ql (U) Negative Negative [facility] Benzoylecgonine [Presence] i n Urine by Screen methodOrdered By: MINNA Hernandez on 09-08-2024 Benzoylecgonine Screen Ql (U) Negative Negative [facility] Bilirubin Test strip Ql (U)O rdered By: MINNA Hernandez on 09-08-2024 Bilirubin Ql (U) Negative Negative [facility] CBC W Auto Differential pane l (Bld)on 09-08-2024 Basophils (Bld) [#/Vol] 0 10*3/uL 0.0 - 0.2 10*3/uL [facility] Basophils/100 WBC Manual cnt (Syn fld) 0.2 % . [facility] Eosinophils (Bld) [#/Vol] 0 10*3/uL 0.0 - 0.45 10*3/uL [facility] Eosinophils/100 WBC Manual cnt (Syn fld) 0.2 % . [facility] Erythrocyte distribution width (RBC) [Ratio] 13.5 % 11.9 - 15.3 % [facility] Hematocrit (Bld) [Volume fraction] 42.5 % 34.0 - 46.4 % [facility] Hemoglobin (Bld) [Mass/Vol] 14.2 g/dL 11.8 - 15.4 g/dL [facility] Interpretation and review of laboratory results Abnormal [facility] Lymphocytes (Bld) [#/Vol] 2.3 10*3/uL 1.00 - 4.8 10*3/uL [facility] Lymphocytes/100 WBC Manual cnt (Syn fld) 13.5 % . [facility] MCH (RBC) [Entitic mass] 30.1 pg 24.7 - 34.3 pg [facility] MCHC (RBC) [Mass/Vol] 33.5 g/dL 32.0 - 35.0 g/dL [facility] MCV (RBC) [Entitic vol] 89.8 fL 80 - 100 fL [facility] Monocytes (Bld) [#/Vol] 1.3 10*3/uL High 0.0 - 0.8 10*3/uL [facility] Monocytes+Macrophages/ 100 WBC Manual cnt (Syn fld) 7.6 % . [facility] Neutrophils (Bld) [#/Vol] 13.6 10*3/uL High 1.8 - 7.7 10*3/uL [facility] Neutrophils/100 WBC Manual cnt (Syn fld) 78.5 % . [facility] NRBC 0 /100{WBC} 0 - 0.5 /100{WBC} [facility] Platelet mean volume (Bld) [Entitic vol] 8.2 fL 6.3 - 10.7 fL [facility] Platelets (Bld) [#/Vol] 333 10*3/uL 150 - 450 10*3/uL [facility] RBC LM.HPF (Urine sed) [#/Area] 4.73 10*6/uL 3.60 - 5.00 10*6/uL [facility] WBC (Bld) [#/Vol] 17.3 10*3/uL High 3.8 - 11.6 10*3/uL [facility] WBC LM.HPF (Urine sed) [#/Area] 17.3 [CFU]/mL High 3.8 - 11.6 [CFU]/mL [facility] Calcium oxalate crystals [Pr esence] in Urine by Computer assisted methodOrdered By: MINNA Hernandez on 09-08-2024 Calcium oxalate crystals Computer assisted Ql (U) 2+ [HPF] [facility] Color of Urine by AutoOrdere d By: MINNA Hernandez on 09-08-2024 Color (U) Yellow Normal Yellow [facility] Comment on above: Order Comment: Comme nt c/o urinary symptoms or increased blood pressure Name Collection Type:: Clean-Voided Midstream Performed By: #### C MP, URIC #### [address] Complete Blood Count Auto Di ffon 09-08-2024 Basophils (Bld) [#/Vol] 0.0 10*3/uL Normal 0.0-0.2 [facility] Comment on above: Result Comment: PERF ORMED BY: [facility] [address] [place] [address] PATHOLOGIST TEACHER OF THE DEAF/HARD [employer] HEARING MICHELLE BENNETT M.D. Performed By: #### V [id number], JULIA, CBC, FE and TIBC #### [address] Basophils/100 WBC (Bld) 0.2 % Normal . [facility] Comment on above: Performed By: #### V [id number], JULIA, CBC, FE and TIBC #### [address] Eosinophils (Bld) [#/Vol] 0.0 10*3/uL Normal 0.0-0.45 [facility] Comment on above: Performed By: #### V [id number], JULIA, CBC, FE and TIBC #### [address] Eosinophils/100 WBC (Bld) 0.2 % Normal . [facility] Comment on above: Performed By: #### V [id number], JULIA, CBC, FE and TIBC #### [address] Erythrocyte distribution width (RBC) [Ratio] 13.5 % Normal 11.9-15.3 [facility] Comment on above: Performed By: #### V [id number], JULIA, CBC, FE and TIBC #### [address] Hematocrit (Bld) [Volume fraction] 42.5 % Normal 34.0-46.4 [facility] Comment on above: Performed By: #### V [id number], JULIA, CBC, FE and TIBC #### [address] Hemoglobin (Bld) [Mass/Vol] 14.2 g/dL Normal 11.8-15.4 [facility] Comment on above: Performed By: #### V [id number], JULIA, CBC, FE and TIBC #### [address] Lymphocytes (Bld) [#/Vol] 2.3 10*3/uL Normal 1.00-4.8 [facility] Comment on above: Performed By: #### V [id number], JULIA, CBC, FE and TIBC #### [address] Lymphocytes/100 WBC (Bld) 13.5 % Normal . [facility] Comment on above: Performed By: #### V [id number], JULIA, CBC, FE and TIBC #### [address] MCH (RBC) [Entitic mass] 30.1 pg Normal 24.7-34.3 [facility] Comment on above: Performed By: #### V [id number], JULIA, CBC, FE and TIBC #### [address] MCV (RBC) [Entitic vol] 89.8 fL Normal 80-100 [facility] Comment on above: Performed By: #### V [id number], JULIA, CBC, FE and TIBC #### [address] Mean Corpuscular HGB Conc 33.5 g/dL Normal 32.0-35.0 [facility] Comment on above: Performed By: #### V [id number], JULIA, CBC, FE and TIBC #### [address] Monocytes (Bld) [#/Vol] 1.3 10*3/uL High 0.0-0.8 [facility] Comment on above: Performed By: #### V [id number], JULIA, CBC, FE and TIBC #### [address] Monocytes/100 WBC (Bld) 7.6 % Normal . [facility] Comment on above: Performed By: #### V [id number], JULIA, CBC, FE and TIBC #### [address] Neutrophils (Bld) [#/Vol] 13.6 10*3/uL High 1.8-7.7 [facility] Comment on above: Performed By: #### V [id number], JULIA, CBC, FE and TIBC #### [address] Neutrophils/100 WBC (Bld) 78.5 % Normal . [facility] Comment on above: Performed By: #### V [id number], JULIA, CBC, FE and TIBC #### [address] NRBC% 0.0 /100{WBC} Normal 0-0.5 [facility] Comment on above: Performed By: #### V [id number], JULIA, CBC, FE and TIBC #### [address] Platelet mean volume (Bld) [Entitic vol] 8.2 fL Normal 6.3-10.7 [facility] Comment on above: Performed By: #### V [id number], JULIA, CBC, FE and TIBC #### [address] Platelets (Bld) [#/Vol] 333 10*3/uL Normal 150-450 [facility] Comment on above: Performed By: #### V [id number], JULIA, CBC, FE and TIBC #### [address] RBC (Bld) [#/Vol] 4.73 10*6/uL Normal 3.60-5.00 [facility] Comment on above: Performed By: #### V [id number], JULIA, CBC, FE and TIBC #### [address] WBC (Bld) [#/Vol] 17.3 10*3/uL High 3.8-11.6 [facility] Comment on above: Performed By: #### V [id number], JULIA, CBC, FE and TIBC #### [address] White Blood Count 17.3 [CFU]/mL High 3.8-11.6 [facility] Comment on above: Performed By: #### V [id number], JULIA, CBC, FE and TIBC #### [address] Dipstick and Microscopicon 0 09-08-2024 Bacteria,Urine Rare Normal None Seen [facility] Comment on above: Order Comment: Comme nt c/o urinary symptoms or increased blood pressure Name Collection Type:: Clean-Voided Midstream Performed By: #### C MP, URIC #### [address] Bilirubin,Urine Negative Normal Negative [facility] Comment on above: Order Comment: Comme nt c/o urinary symptoms or increased blood pressure Name Collection Type:: Clean-Voided Midstream Performed By: #### C MP, URIC #### [address] Calcium Oxalate Crystals,Urine 2+ [HPF] Normal [facility] Comment on above: Order Comment: Comme nt c/o urinary symptoms or increased blood pressure Name Collection Type:: Clean-Voided Midstream Performed By: #### C MP, URIC #### [address] Glucose Ql (U) Normal Normal Normal [facility] Comment on above: Order Comment: Comme nt c/o urinary symptoms or increased blood pressure Name Collection Type:: Clean-Voided Midstream Performed By: #### C MP, URIC #### [address] Hyaline Casts,Urine None Normal 0-8 [facility] Comment on above: Order Comment: Comme nt c/o urinary symptoms or increased blood pressure Name Collection Type:: Clean-Voided Midstream Performed By: #### C MP, URIC #### [address] Mucus,Urine 3+ [LPF] Critically abnormal [facility] Comment on above: Order Comment: Comme nt c/o urinary symptoms or increased blood pressure Name Collection Type:: Clean-Voided Midstream Result Comment: PERF ORMED BY: [place] [address] PATHOLOGIST TEACHER OF THE DEAF/HARD [employer] HEARING MICHELLE BENNETT M.D. Performed By: #### C MP, URIC #### [address] Nitrite,Urine Negative Normal Negative [facility] Comment on above: Order Comment: Comme nt c/o urinary symptoms or increased blood pressure Name Collection Type:: Clean-Voided Midstream Performed By: #### C MP, URIC #### [address] Non-Squamous Epithelial Cell,U 1-2 Normal None Seen [facility] Comment on above: Order Comment: Comme nt c/o urinary symptoms or increased blood pressure Name Collection Type:: Clean-Voided Midstream Performed By: #### C MP, URIC #### [address] Occult Blood,Urine 2+ Normal Negative [facility] Comment on above: Order Comment: Comme nt c/o urinary symptoms or increased blood pressure Name Collection Type:: Clean-Voided Midstream Result Comment: PERF ORMED BY: [place] [address] PATHOLOGIST TEACHER OF THE DEAF/HARD OF HEARING MICHELLE BENNETT M.D. Performed By: #### C MP, URIC #### [address] RBC,Urine 50-100 Normal 0-4 [facility] Comment on above: Order Comment: Comme nt c/o urinary symptoms or increased blood pressure Name Collection Type:: Clean-Voided Midstream Performed By: #### C MP, URIC #### [address] Specificy [place],Urine 1.033 High 1.001-1.030 [facility] Comment on above: Order Comment: Comme nt c/o urinary symptoms or increased blood pressure Name Collection Type:: Clean-Voided Midstream Performed By: #### C MP, URIC #### [address] Squamous Epithelial Cell,Urine 20-49 Normal 0-2 [facility] Comment on above: Order Comment: Comme nt c/o urinary symptoms or increased blood pressure Name Collection Type:: Clean-Voided Midstream Performed By: #### C MP, URIC #### [address] Urobilinogen,Urine Normal Normal Normal [facility] Comment on above: Order Comment: Comme nt c/o urinary symptoms or increased blood pressure Name Collection Type:: Clean-Voided Midstream Performed By: #### C MP, URIC #### [address] WBC,Urine 50-100 Normal 0-4 [facility] Comment on above: Order Comment: Comme nt c/o urinary symptoms or increased blood pressure Name Collection Type:: Clean-Voided Midstream Performed By: #### C MP, URIC #### [address] Epithelial cells.non-squamou s [#/area] in Urine sediment by Automated countOrdered By: MINNA Hernandez on 09-08-2024 Epithelial cells.non-squamous Auto (Urine sed) [#/Area] 1-2 [HPF] High None Seen [facility] Epithelial cells.squamous [# /area] in Urine sediment by Automated countOrdered By: MINNA Hernandez on 09-08-2024 Epithelial cells.squamous Auto (Urine sed) [#/Area] 20-49 [HPF] High 0-2 [facility] Erythrocytes [#/area] in Uri ne sediment by Automated countOrdered By: MINNA Hernandez on 09-08-2024 RBC Auto (Urine sed) [#/Area] 50-100 [HPF] High 0-4 [facility] Glucose [Mass/volume] in Uri ne by Test stripOrdered By: MINNA Hernandez on 09-08-2024 Glucose Test strip (U) [Mass/Vol] Normal mg/dL Normal [facility] Hemoglobin Test strip Ql (U) Ordered By: MINNA Hernandez on 09-08-2024 Hemoglobin Ql (U) 2+ High Negative [facility] Hyaline casts [#/area] in Ur ine sediment by Automated countOrdered By: MINNA Hernandez on 09-08-2024 Hyaline casts Auto (Urine sed) [#/Area] None [LPF] 0-8 [facility] Ketones [Presence] in Urine by Test stripOrdered By: MINNA Hernandez on 09-08-2024 Ketones Ql (U) 1+ Normal Negative [facility] Comment on above: Order Comment: Comme nt c/o urinary symptoms or increased blood pressure Name Collection Type:: Clean-Voided Midstream Performed By: #### C MP, URIC #### [address] Leukocyte esterase [Presence ] in Urine by Test stripOrdered By: MINNA Hernandez on 09-08-2024 Leukocyte esterase Test strip Ql (U) 4+ Normal Negative [facility] Comment on above: Order Comment: Comme nt c/o urinary symptoms or increased blood pressure Name Collection Type:: Clean-Voided Midstream Performed By: #### C MP, URIC #### [facility] [address] [place] [address] [place] Leukocytes [#/area] in Urine sediment by Automated countOrdered By: MINNA Hernandez on 09-08-2024 WBC Auto (Urine sed) [#/Area] 50-100 [HPF] High 0-4 [facility] Mucus [Presence] in Urine by AutomatedOrdered By: MINNA Hernandez on 09-08-2024 Mucus Auto Ql (U) 3+ [LPF] Abnormal [facility] Nitrite Test strip Ql (U)Ord ered By: MINNA Hernandez on 09-08-2024 Nitrite Ql (U) Negative Negative [facility] OB Urine Drug Screen (NO THC )on 09-08-2024 Amphetamine Screen,Urine Negative Normal Negative [facility] Comment on above: Order Comment: Comme nt s/s of acute impairment Performed By: #### V [id number], JULIA, CBC, FE and TIBC #### [address] Barbiturate Screen,Urine Negative Normal Negative [facility] Comment on above: Order Comment: Comme nt s/s of acute impairment Performed By: #### V [id number], JULIA, CBC, FE and TIBC #### [place] [address] [place] Benzodiazepines Screen,Urine Negative Normal Negative [facility] Comment on above: Order Comment: Comme nt s/s of acute impairment Performed By: #### V [id number], JULIA, CBC, FE and TIBC #### [address] Cocaine Screen,Urine Negative Normal Negative [facility] Comment on above: Order Comment: Comme nt s/s of acute impairment Performed By: #### V [id number], JULIA, CBC, FE and TIBC #### [address] Opiate Screen,Urine Negative Normal Negative [facility] Comment on above: Order Comment: Comme nt s/s of acute impairment Performed By: #### V [id number], JULIA, CBC, FE and TIBC #### [address] Phencyclidine Screen, Urine Negative Normal Negative [facility] Comment on above: Order Comment: Comme nt s/s of acute impairment Result Comment: Thes e are unconfirmed results and should not be used for legal purposes. Drug Cut-Off Concentration: AMPH 1000 ng/mL SHERICE 200 ng/mL ANA 200 ng/mL COCM 300 ng/mL OP 300 ng/mL PCP 25 ng/mL PERFORMED BY: [place] [address] PATHOLOGIST TEACHER OF THE DEAF/HARD OF HEARING MICHELLE BENNETT M.D. Performed By: #### V [id number], JULIA, CBC, FE and TIBC #### [address] Opiates [Presence] in Urine by Screen methodOrdered By: MINNA Hernandez on 09-08-2024 Opiates Screen Ql (U) Negative Negative [facility] Phencyclidine Screen Ql (U)O rdered By: MINNA Hernandez on 09-08-2024 Phencyclidine Ql (U) Negative Negative [facility] Comment on above: These are unconfirme d results and should not be used for legal purposes. Drug Cut-Off Concentration: AMPH 1000 ng/mL SHERICE 200 ng/mL ANA 200 ng/mL COCM 300 ng/mL OP 300 ng/mL PCP 25 ng/mL Protein [Mass/volume] in Uri ne by Test stripOrdered By: MINNA Hernandez on 09-08-2024 Protein (U) [Mass/Vol] 30 mg/dL Normal Negative [facility] Comment on above: Order Comment: Comme nt c/o urinary symptoms or increased blood pressure Name Collection Type:: Clean-Voided Midstream Performed By: #### C MP, URIC #### [facility] [address] [place] [address] [place] RPR w/rfx to Quant TP Abson 09-08-2024 RPR, Rfx Quant RPR Non-Reactive Normal Non Reactive [facility] Comment on above: Result Comment: Perf ormed at: CB - [facility] [address] [place], [place] [id number] Field Sampling Technician: Harsha Villanueva PhD, Phone: [phone] PERFORMED BY: [place] [address] PATHOLOGIST TEACHER OF THE DEAF/HARD OF HEARING MICHELLE BENNETT M.D. Performed By: #### V [id number], JULIA, CBC, FE and TIBC #### [facility] [address] [place] [address] Serum RPR testOrdered By: MD MARCELO Hernandez on 09-08-2024 Reagin Ab RPR Ql (S) Non-Reactive Non Reactive [facility] Comment on above: Performed at: CB - [facility] [id number] [place], [place] [id number] Director: Harsha Villanueva PhD, Phone: [phone] Specific gravity Test strip (U) [Rel density]Ordered By: MINNA Hernandez on 09-08-2024 Specific gravity (U) [Rel density] 1.033 High 1.001-1.030 [facility] Urinalysis complete panel (U )on 09-08-2024 Appearance (U) Cloudy Critically abnormal Clear [facility] BILIRUBIN,URINE Negative Negative [facility] Color (U) Yellow Yellow [facility] Glucose Ql (U) Normal Normal mg/dL [facility] Interpretation and review of laboratory results Abnormal [facility] Ketones Ql (U) 1+ Negative [facility] Leukocyte esterase Test strip Ql (U) 4+ Negative [facility] NITRITE,URINE Negative Negative [facility] OCCULT BLOOD,URINE 2+ Negative [facility] pH (U) 5.5 [pH] 5.0 - 9.0 [facility] Protein (U) [Mass/Vol] 30 mg/dL Negative NO [facility] SPECIFICY GRAVITY,URINE 1.033 High 1.001 - 1.030 [facility] UROBILINOGEN,URINE Normal Normal mg/dL [facility] Comment c/o urinary symptoms or increased blood pressure Name Collection Type:: Clean-Voided Midstream [facility] Urine Cultureon 09-08-2024 Bacteria identified Cx Nom (U) ORGANISM: Strep agalactiae - (group b) (O:STRAGA) [place] Count <10,000 PERFORMED BY: [place] [address] PATHOLOGIST TEACHER OF THE DEAF/HARD OF HEARING MICHELLE BENNETT M.D. Normal [facility] Comment on above: Performed By: #### C MP, URIC #### [address] Urine cultureOrdered By: MARY Hernandez on 09-08-2024 Bacteria identified Cx Nom (U) Strep agalactiae - (group b) Abnormal [facility] Urobilinogen Test strip (U) [Mass/Vol]Ordered By: MINNA Hernandez on 09-08-2024 Urobilinogen (U) [Mass/Vol] Normal mg/dL Normal [facility] pH of Urine by Test stripOrd ered By: MINNA Hernandez on 09-08-2024 pH (U) 5.5 [pH] Normal 5.0-9.0 [facility] Comment on above: Order Comment: Comme nt c/o urinary symptoms or increased blood pressure Name Collection Type:: Clean-Voided Midstream Performed By: #### C MP, URIC #### [address] No Panel Informationon 09-07 Glucose, UA Negative Negative - 1999(110) ++++ mg/dL [facility] Protein, UA Trace Negative - 1999(20) ++++ mg/dL [facility] Alanine aminotransferase [En zymatic activity/volume] in Serum or PlasmaOrdered By: MINNA Hernandez on 09-01-2024 ALT [Catalytic activity/Vol] 12 U/L Normal 7-52 [facility] Comment on above: Performed By: #### C MP, URIC #### [address] Albumin [Mass/volume] in Ser um or Plasma by Bromocresol green (BCG) dye binding methoOrdered By: MINNA Hernandez on 09-01-2024 Albumin BCG dye [Mass/Vol] 3.4 g/dL Low 3.5-5.7 [facility] Alkaline phosphatase [Enzyma tic activity/volume] in Serum or PlasmaOrdered By: MINNA Hernandez on 09-01-2024 ALP [Catalytic activity/Vol] 96 U/L Normal 34-104 [facility] Comment on above: Performed By: #### C MP, URIC #### [address] Appearance of UrineOrdered B y: MINNA Hernandez on 09-01-2024 Appearance (U) Cloudy Critically abnormal Clear [facility] Comment on above: Order Comment: Comme nt c/o urinary symptoms or increased blood pressure Name Collection Type:: Clean-Voided Midstream Performed By: #### V [id number], JULIA, CBC, FE and TIBC #### [place] [address] [place] Aspartate aminotransferase [ Enzymatic activity/volume] in Serum or PlasmaOrdered By: MINNA Hernandez on 09-01-2024 AST [Catalytic activity/Vol] 16 U/L Normal 13-39 [facility] Comment on above: Performed By: #### C DIRK URIC #### [address] Bacteria [Presence] in Urine by AutomatedOrdered By: MINNA Hernandez on 09-01-2024 Bacteria Auto Ql (U) None seen [HPF] None Seen [facility] Bilirubin Test strip Ql (U)O rdered By: MINNA Hernandez on 09-01-2024 Bilirubin Ql (U) Negative Negative [facility] Bilirubin.total [Mass/volume ] in Serum or PlasmaOrdered By: MINNA Hernandez on 09-01-2024 Bilirubin [Mass/Vol] 0.2 mg/dL Low 0.3-1.0 [facility] Comment on above: Performed By: #### C DIRK URIC #### [place] [address] [place] Calcium [Mass/volume] in Ser um or PlasmaOrdered By: MINNA Hernandez on 09-01-2024 Calcium [Mass/Vol] 9.0 mg/dL Normal 8.6-10.3 [facility] Comment on above: Performed By: #### C DIRK URIC #### [place] [address] [place] Calcium oxalate crystals [Pr esence] in Urine by Computer assisted methodOrdered By: MINNA Hernandez on 09-01-2024 Calcium oxalate crystals Computer assisted Ql (U) 1+ [HPF] [facility] Carbon dioxide, total [Moles /volume] in Serum or PlasmaOrdered By: MINNA Hernandez on 09-01-2024 CO2 [Moles/Vol] 22.8 mmol/L Normal 21.0-31.0 [facility] Comment on above: Performed By: #### C MP, URIC #### [place] [address] [place] Chloride [Moles/volume] in S lenore or PlasmaOrdered By: MINNA Hernandez on 09-01-2024 Chloride [Moles/Vol] 107 mmol/L Normal 98-107 [facility] Comment on above: Performed By: #### C MP, URIC #### [address] Color of Urine by AutoOrdere d By: MINNA Hernandez on 09-01-2024 Color (U) Yellow Normal Yellow [facility] Comment on above: Order Comment: Comme nt c/o urinary symptoms or increased blood pressure Name Collection Type:: Clean-Voided Midstream Performed By: #### V [id number], JULIA, CBC, FE and TIBC #### [address] Metabolic Pane jorge 09-01-2024 Albumin [Mass/Vol] 3.4 g/dL Low 3.5-5.7 [facility] Comment on above: Performed By: #### C MP, URIC #### [place] [address] [place] Creatinine Clr Calc Pharmacy 270.22 Normal [facility] Comment on above: Performed By: #### C MP, URIC #### [place] [address] [place] GFR/1.73 sq M.predicted MDRD (S/P/Bld) [Vol rate/Area] mL/min/{1.73_m2} Normal [facility] Comment on above: Performed By: #### C MP, URIC #### [address] Comprehensive metabolic pane jorge 09-01-2024 Albumin [Mass/Vol] 3.4 g/dL Low 3.5 - 5.7 g/dL NO [facility] Albumin/Globulin [Mass ratio] 1.2 {ratio} [facility] ALP [Catalytic activity/Vol] 96 U/L 34 - 104 U/L [facility] ALT [Catalytic activity/Vol] 12 U/L 7 - 52 U/L [facility] Anion gap [Moles/Vol] 10.9 mmol/L 6.0 - 15.0 NO [facility] AST [Catalytic activity/Vol] 16 U/L 13 - 39 U/L [facility] Bilirubin [Mass/Vol] 0.2 mg/dL Low 0.3 - 1.0 mg/dL [facility] Calcium [Mass/Vol] 9 mg/dL 8.6 - 10. 3 mg/dL [facility] Chloride [Moles/Vol] 107 mmol/L 98 - 107 mmol/L [facility] CO2 [Moles/Vol] 22.8 mmol/L 21.0 - 31.0 mmol/L [facility] Creatinine (U) [Mass/Vol] 0.58 mg/dL Low 0.60 - 1.20 mg/dL [facility] CREATININE CLR CALC PHARMACY 270.22 [facility] ESTIMATED GFR [facility] Globulin (S) [Mass/Vol] 2.8 g/dL [facility] Glucose [Mass/Vol] 74 mg/dL 70 - 100 mg/dL NO [facility] Comment on above: Random Glucose Refer ence Range is dependent on time and content of last meal. Glucose of more than 200 mg/dL in a nonstressed, ambulatory subject supports the diagnosis of Diabetes Mellitus. ADA recommended reference range Interpretation and review of laboratory results Abnormal [facility] Potassium [Moles/Vol] 3.7 mmol/L 3.5 - 5.1 mmol/L [facility] Protein [Mass/Vol] 6.2 g/dL Low 6.4 - 8.9 g/dL NO [facility] Sodium [Moles/Vol] 137 mmol/L 136 - 145 mmol/L [facility] Urea nitrogen [Mass/Vol] 7 mg/dL 7 - 25 mg/dL [facility] Creatinine [Mass/volume] in Serum or PlasmaOrdered By: MINNA Hernandez on 09-01-2024 Creatinine [Mass/Vol] 0.58 mg/dL Low 0.60-1.20 [facility] Comment on above: Performed By: #### C MP, URIC #### [address] Creatinine [Mass/volume] in UrineOrdered By: MINNA Hernandez on 09-01-2024 Creatinine (U) [Mass/Vol] 135.00 mg/dL [facility] Comment on above: No reference range e stablished Dipstick and Microscopicon 0 09-01-2024 Bacteria,Urine None Seen Normal None Seen [facility] Comment on above: Order Comment: Comme nt c/o urinary symptoms or increased blood pressure Name Collection Type:: Clean-Voided Midstream Performed By: #### V [id number], JULIA, CBC, FE and TIBC #### [address] Bilirubin,Urine Negative Normal Negative [facility] Comment on above: Order Comment: Comme nt c/o urinary symptoms or increased blood pressure Name Collection Type:: Clean-Voided Midstream Performed By: #### V [id number], JULIA, CBC, FE and TIBC #### [address] [place] Yeast,Urine 1+ [HPF] Normal None Seen [facility] Comment on above: Order Comment: Comme nt c/o urinary symptoms or increased blood pressure Name Collection Type:: Clean-Voided Midstream Result Comment: PERF ORMED BY: [place] [address] PATHOLOGIST TEACHER OF THE DEAF/HARD OF HEARING MICHELLE BENNETT M.D. Performed By: #### V [id number], JULIA, CBC, FE and TIBC #### [address] Calcium Oxalate Crystals,Urine 1+ [HPF] Normal [facility] Comment on above: Order Comment: Comme nt c/o urinary symptoms or increased blood pressure Name Collection Type:: Clean-Voided Midstream Performed By: #### V [id number], JULIA, CBC, FE and TIBC #### [address] Glucose Ql (U) Normal Normal Normal [facility] Comment on above: Order Comment: Comme nt c/o urinary symptoms or increased blood pressure Name Collection Type:: Clean-Voided Midstream Performed By: #### V [id number], JULIA, CBC, FE and TIBC #### [address] Hyaline Casts,Urine None Normal 0-8 [facility] Comment on above: Order Comment: Comme nt c/o urinary symptoms or increased blood pressure Name Collection Type:: Clean-Voided Midstream Performed By: #### V [id number], JULIA, CBC, FE and TIBC #### [facility] [address] Mucus,Urine Rare Normal [facility] Comment on above: Order Comment: Comme nt c/o urinary symptoms or increased blood pressure Name Collection Type:: Clean-Voided Midstream Performed By: #### V [id number], JULIA, CBC, FE and TIBC #### [address] Nitrite,Urine Negative Normal Negative [facility] Comment on above: Order Comment: Comme nt c/o urinary symptoms or increased blood pressure Name Collection Type:: Clean-Voided Midstream Performed By: #### V [id number], JULIA, CBC, FE and TIBC #### [address] Occult Blood,Urine Negative Normal Negative [facility] Comment on above: Order Comment: Comme nt c/o urinary symptoms or increased blood pressure Name Collection Type:: Clean-Voided Midstream Result Comment: PERF ORMED BY: [place] [address] PATHOLOGIST TEACHER OF THE DEAF/HARD OF HEARING MICHELLE BENNETT M.D. Performed By: #### V [id number], JULIA, CBC, FE and TIBC #### [address] Protein,Urine Trace Normal Negative [facility] Comment on above: Order Comment: Comme nt c/o urinary symptoms or increased blood pressure Name Collection Type:: Clean-Voided Midstream Performed By: #### V [id number], JULIA, CBC, FE and TIBC #### [address] RBC,Urine 5-9 Normal 0-4 [facility] Comment on above: Order Comment: Comme nt c/o urinary symptoms or increased blood pressure Name Collection Type:: Clean-Voided Midstream Performed By: #### V [id number], JULIA, CBC, FE and TIBC #### [address] Specificy [place],Urine 1.025 Normal 1.001-1.030 [facility] Comment on above: Order Comment: Comme nt c/o urinary symptoms or increased blood pressure Name Collection Type:: Clean-Voided Midstream Performed By: #### V [id number], JULIA, CBC, FE and TIBC #### [address] Squamous Epithelial Cell,Urine 20-49 Normal 0-2 [facility] Comment on above: Order Comment: Comme nt c/o urinary symptoms or increased blood pressure Name Collection Type:: Clean-Voided Midstream Performed By: #### V [id number], JULIA, CBC, FE and TIBC #### [address] Urobilinogen,Urine Normal Normal Normal [facility] Comment on above: Order Comment: Comme nt c/o urinary symptoms or increased blood pressure Name Collection Type:: Clean-Voided Midstream Performed By: #### V [id number], JULIA, CBC, FE and TIBC #### [address] WBC CLUMP, Urine Few Normal None Seen [facility] Comment on above: Order Comment: Comme nt c/o urinary symptoms or increased blood pressure Name Collection Type:: Clean-Voided Midstream Performed By: #### V [id number], JULIA, CBC, FE and TIBC #### [address] WBC,Urine 20-49 Normal 0-4 [facility] Comment on above: Order Comment: Comme nt c/o urinary symptoms or increased blood pressure Name Collection Type:: Clean-Voided Midstream Performed By: #### V [id number], JULIA, CBC, FE and TIBC #### [address] Epithelial cells.squamous [# /area] in Urine sediment by Automated countOrdered By: MINNA Hernandez on 09-01-2024 Epithelial cells.squamous Auto (Urine sed) [#/Area] 20-49 [HPF] High 0-2 [facility] Erythrocytes [#/area] in Uri ne sediment by Automated countOrdered By: MINNA Hernandez on 09-01-2024 RBC Auto (Urine sed) [#/Area] 5-9 [HPF] High 0-4 [facility] Glucose [Mass/volume] in Ser um or PlasmaOrdered By: MINNA Hernandez on 09-01-2024 Glucose [Mass/Vol] 74 mg/dL Normal 70-100 [facility] Comment on above: ADA recommended refe rence rangeRandom Glucose Reference Range is dependent on time and content of last meal. Glucose of more than 200 mg/dL in a nonstressed, ambulatory subject supports the diagnosis of Diabetes Mellitus. Result Comment: [place] om Glucose Reference Range is dependent on time and content of last meal. Glucose of more than 200 mg/dL in a nonstressed, ambulatory subject supports the diagnosis of Diabetes Mellitus. ADA recommended reference range Performed By: #### C , URIC #### [address] Glucose [Mass/volume] in Uri ne by Test stripOrdered By: MINNA Hernandez on 09-01-2024 Glucose Test strip (U) [Mass/Vol] Normal mg/dL Normal [facility] Hemoglobin Test strip Ql (U) Ordered By: MINNA Hernandez on 09-01-2024 Hemoglobin Ql (U) Negative Negative [facility] Hyaline casts [#/area] in Ur ine sediment by Automated countOrdered By: MINNA Hernandez on 09-01-2024 Hyaline casts Auto (Urine sed) [#/Area] None [LPF] 0-8 [facility] Ketones [Presence] in Urine by Test stripOrdered By: MINNA Hernandez on 09-01-2024 Ketones Ql (U) 1+ Normal Negative [facility] Comment on above: Order Comment: Comme nt c/o urinary symptoms or increased blood pressure Name Collection Type:: Clean-Voided Midstream Performed By: #### V [id number], JULIA, CBC, FE and TIBC #### [facility] [address] [place] [address] [place] Leukocyte clumps [Presence] in Urine by AutomatedOrdered By: MINNA Hernandez on 09-01-2024 Leukocyte clumps Auto Ql (U) Few [LPF] High None Seen [facility] Leukocyte esterase [Presence ] in Urine by Test stripOrdered By: MINNA Hernandez on 09-01-2024 Leukocyte esterase Test strip Ql (U) 4+ Normal Negative [facility] Comment on above: Order Comment: Comme nt c/o urinary symptoms or increased blood pressure Name Collection Type:: Clean-Voided Midstream Performed By: #### V [id number], JULIA, CBC, FE and TIBC #### [facility] [address] Leukocytes [#/area] in Urine sediment by Automated countOrdered By: MINNA Hernandez on 09-01-2024 WBC Auto (Urine sed) [#/Area] 20-49 [HPF] High 0-4 [facility] Mucus [Presence] in Urine by AutomatedOrdered By: MINNA Hernandez on 09-01-2024 Mucus Auto Ql (U) Rare [LPF] [facility] Nitrite Test strip Ql (U)Ord ered By: MINNA Hernandez on 09-01-2024 Nitrite Ql (U) Negative Negative [facility] No Panel Informationon 09-01 [facility] No Panel InformationOrdered By: MINNA Hernandez on 09-01-2024 Estimated GFR (CKD-EPI) > 60.0 mL/Min [facility] Creatinine Clearance (Chem 270.22 [facility] Potassium [Moles/volume] in Serum or PlasmaOrdered By: MINNA Hernandez on 09-01-2024 Potassium [Moles/Vol] 3.7 mmol/L Normal 3.5-5.1 [facility] Comment on above: Performed By: #### C MP, URIC #### [address] Protein Creat Ratio Ur Rando mon 09-01-2024 Creatinine, Urine (Random) 135.00 mg/dL Normal [facility] Comment on above: Order Comment: Comme nt Already Obtained and in Lab Result Comment: No r eference range established Performed By: #### V [id number], JULIA, CBC, FE and TIBC #### [address] Urine Protein/Creatinine Ratio 156 mg/g{Cre} Normal 0-200 [facility] Comment on above: Order Comment: Comme nt Already Obtained and in Lab Result Comment: PERF ORMED BY: [place] [address] PATHOLOGIST TEACHER OF THE DEAF/HARD OF HEARING MICHELLE BENNETT M.D. Performed By: #### V [id number], JULIA, CBC, FE and TIBC #### [address] Protein Test strip (U) [Mass /Vol]Ordered By: MINNA Hernandez on 09-01-2024 Protein (U) [Mass/Vol] Trace mg/dL High Negative [facility] Protein [Mass/volume] in Ser um or PlasmaOrdered By: MINNA Hernandez on 09-01-2024 Protein [Mass/Vol] 6.2 g/dL Low 6.4-8.9 [facility] Comment on above: Performed By: #### C MP, URIC #### [address] Protein [Mass/volume] in Uri neOrdered By: MINNA Hernandez on 09-01-2024 Protein (U) [Mass/Vol] 21 mg/dL High 0-9 [facility] Comment on above: Order Comment: Comme nt Already Obtained and in Lab Performed By: #### V [id number], JULIA, CBC, FE and TIBC #### [address] Protein/Creatinine (U) [Mass ratio]on 09-01-2024 Creatinine spec 2 (U) [Mass/Vol] 135 mg/dL [facility] Comment on above: No reference range e stablished Interpretation and review of laboratory results Abnormal [facility] Protein (U) [Mass/Vol] 21 mg/dL High 0 - 9 mg/dL [facility] URINE PROTEIN/CREATININE RATIO 156 mg/g{Cre} 0 - 200 mg/g{Cre} [facility] Comment Already Obtained and in Lab [facility] Serum globulin measurement b y calculation (mass/volume)Ordered By: MINNA Hernandez on 09-01-2024 Globulin (S) [Mass/Vol] 2.8 g/dL [facility] Comment on above: Performed By: #### C DIRK URIC #### [address] Serum or plasma albumin/glob ulin mass ratioOrdered By: MINNA Hernandez on 09-01-2024 Albumin/Globulin [Mass ratio] 1.2 {ratio} [facility] Comment on above: Performed By: #### C DIRK URIC #### [address] Serum or plasma anion gap de terminationOrdered By: MINNA Hernandez on 09-01-2024 Anion gap [Moles/Vol] 10.9 mmol/L Normal 6.0-15.0 [facility] Comment on above: Performed By: #### C DIRK, URIC #### [address] Sodium [Moles/volume] in Ser um or PlasmaOrdered By: MINNA Hernandez on 09-01-2024 Sodium [Moles/Vol] 137 mmol/L Normal 136-145 [facility] Comment on above: Performed By: #### C DIRK, URIC #### [address] Specific gravity Test strip (U) [Rel density]Ordered By: MINNA Hernandez on 09-01-2024 Specific gravity (U) [Rel density] 1.025 1.001-1.030 [facility] Urate [Mass/volume] in Serum or PlasmaOrdered By: MINNA Hernandez on 09-01-2024 Urate [Mass/Vol] 5.5 mg/dL Normal 2.3-6.6 [facility] Comment on above: Result Comment: PERF ORMED BY: [place] [address] PATHOLOGIST TE[employer]ER OF THE DEAF/H[employer] HE[employer] MICHELLE BENNETT M.D. Performed By: #### C MP, URIC #### [facility] [address] Urea nitrogen [Mass/volume] in Serum or PlasmaOrdered By: MINNA Hernandez on 09-01-2024 Urea nitrogen [Mass/Vol] 7 mg/dL Normal 7-25 [facility] Comment on above: Performed By: #### C MP, URIC #### [facility] [address] Uric acidon 09-01-2024 Urate [Mass/Vol] 5.5 mg/dL 2.3 - 6.6 mg/dL [facility] Urinalysis complete panel (U )on 09-01-2024 Appearance (U) Cloudy Critically abnormal Clear [facility] BILIRUBIN,URINE Negative Negative [facility] Color (U) Yellow Yellow [facility] Glucose Ql (U) Normal Normal mg/dL [facility] Interpretation and review of laboratory results Abnormal [facility] Ketones Ql (U) 1+ Negative [facility] Leukocyte esterase Test strip Ql (U) 4+ Negative [facility] NITRITE,URINE Negative Negative [facility] OCCULT BLOOD,URINE Negative Negative [facility] pH (U) 6.5 [pH] 5.0 - 9.0 [facility] PROTEIN,URINE Trace Negative mg/dL [facility] SPECIFICY GRAVITY,URINE 1.025 1.001 - 1.030 [facility] UROBILINOGEN,URINE Normal Normal mg/dL [facility] Comment c/o urinary symptoms or increased blood pressure Name Collection Type:: Clean-Voided Midstream [facility] Urine Cultureon 09-01-2024 Bacteria identified Cx Nom (U) 20,000 colonies/ml mixed bacterial skin contaminants 2 Days PERFORMED BY: [address] [place] [address] PATHOLOGIST TEACHER OF THE DEAF/HARD [employer] HEARING MICHELLE BENNETT M.D. Normal [facility] Comment on above: Performed By: #### V [id number], JULIA, CBC, FE and TIBC #### [facility] [address] Urine cultureOrdered By: MARY Hernandez on 09-01-2024 Bacteria identified Cx Nom (U) 2 Days [facility] Urine protein/creatinine rat ioOrdered By: MINNA Hernandez on 09-01-2024 Protein/Creatinine (U) [Ratio] 156 mg/g{Cre} 0-200 [facility] Urobilinogen Test strip (U) [Mass/Vol]Ordered By: MINNA Hernandez on 09-01-2024 Urobilinogen (U) [Mass/Vol] Normal mg/dL Normal [facility] Yeast.budding [Presence] in Urine by Computer assisted methodOrdered By: MINNA Hernandez on 09-01-2024 Yeast.budding Computer assisted Ql (U) 1+ [HPF] High None Seen [facility] pH of Urine by Test stripOrd ered By: MINNA Hernandez on 09-01-2024 pH (U) 6.5 [pH] Normal 5.0-9.0 [facility] Comment on above: Order Comment: Comme nt c/o urinary symptoms or increased blood pressure Name Collection Type:: Clean-Voided Midstream Performed By: #### V [id number], JULIA, CBC, FE and TIBC #### [facility] [address] No Panel Informationon 08-31 Glucose, UA Negative Negative - 1999(110) ++++ mg/dL [facility] Protein, UA Trace Negative - 1999(20) ++++ mg/dL [facility] No Panel Informationon 08-29 Glucose, UA Negative Negative - 2000(110) ++++ mg/dL [facility] Protein, UA 2+ Negative - 1999(20) ++++ mg/dL [facility] B Streptococcus cultur e femaleOrdered By: Mandy Patel on 08-25-2024 S. agalactiae Org specific cx Ql (Unsp spec) No Group B Beta Streptococcus Isolated 3 Days [facility] No Panel Informationon 08-25 Glucose, UA Negative Negative - 2000(110) ++++ mg/dL [facility] Protein, UA Negative Negative - 2000(20) ++++ mg/dL [facility] Strep B Cultureon 08-25-2024 Strep B Culture No Group B Beta Streptococcus Isolated 3 Days PERFORMED BY: [place] [address] PATHOLOGIST TEACHER OF THE DEAF/HARD [employer] HEARING MICHELLE BENNETT M.D. Normal [facility] Comment on above: Performed By: #### V [id number], JULIA, CBC, FE and TIBC #### [address] No Panel Informationon 08-08 Glucose, UA Negative Negative - 1999(110) ++++ mg/dL [facility] Protein, UA Negative Negative - 1999(20) ++++ mg/dL [facility] Basophils [#/volume] in Bloo d by Automated countOrdered By: Pippa aLne on 08-01-2024 Basophils (Bld) [#/Vol] 0.1 10*3/uL Normal 0.0-0.2 [facility] Comment on above: Result Comment: PERF ORMED BY: [place] [address] PATHOLOGIST TEACHER OF THE DEAF/HARD OF HEARING MICHELLE BENNETT M.D. Performed By: #### V [id number], JULIA, CBC, FE and TIBC #### [address] Basophils/100 leukocytes in Blood by Automated countOrdered By: Pippa Lane on 08-01-2024 Basophils/100 WBC (Bld) 0.6 % Normal . [facility] Comment on above: Performed By: #### V [id number], JULIA, CBC, FE and TIBC #### [place] [address] Complete Blood Count Auto Di ffon 08-01-2024 Mean Corpuscular HGB Conc 33.9 g/dL Normal 32.0-35.0 [facility] Comment on above: Performed By: #### V [id number], JULIA, CBC, FE and TIBC #### [address] NRBC% 0.1 /100{WBC} Normal 0-0.5 [facility] Comment on above: Performed By: #### V [id number], JULIA, CBC, FE and TIBC #### [address] White Blood Count 14.7 [CFU]/mL High 3.8-11.6 [facility] Comment on above: Performed By: #### V [id number], JULIA, CBC, FE and TIBC #### [address] Eosinophils [#/volume] in Bl ood by Automated countOrdered By: trinidad Lane on 08-01-2024 Eosinophils (Bld) [#/Vol] 0.2 10*3/uL Normal 0.0-0.45 [facility] Comment on above: Performed By: #### V [id number], JULIA, CBC, FE and TIBC #### [address] Eosinophils/100 leukocytes i n Blood by Automated countOrdered By: Pippa Lane on 08-01-2024 Eosinophils/100 WBC (Bld) 1.3 % Normal . [facility] Comment on above: Performed By: #### V [id number], JULIA, CBC, FE and TIBC #### [address] Erythrocyte distribution wid th [Ratio] by Automated countOrdered By: trinidad Coyle on 08-01-2024 Erythrocyte distribution width (RBC) [Ratio] 13.4 % Normal 11.9-15.3 [facility] Comment on above: Performed By: #### V [id number], JULIA, CBC, FE and TIBC #### [facility] [address] Erythrocytes [#/volume] in B lood by Automated countOrdered By: Pippa Lane on 08-01-2024 RBC (Bld) [#/Vol] 4.36 10*6/uL Normal 3.60-5.00 [facility] Comment on above: Performed By: #### V [id number], JULIA, CBC, FE and TIBC #### [facility] [address] Ferritin [Mass/volume] in Se rum or PlasmaOrdered By: Pippa Lane on 08-01-2024 Ferritin [Mass/Vol] 126.8 ng/mL Normal 11.0-306.8 [facility] Comment on above: Performed By: #### V [id number], JULIA, CBC, FE and TIBC #### [facility] [address] [place] [address] Folate [Mass/volume] in Seru m or PlasmaOrdered By: Pippa Lane on 08-01-2024 Folate [Mass/Vol] 37.0 ng/mL >5.[address] [facility] Comment on above: Folate reference ran ge: >5.9 ng/mlThe WHO technical consultation on folate and vitamin [id number] has determined that folate concentrations lessthan 4 ng/ml are considered deficient. Hematocrit [Volume Fraction] of Blood by Automated countOrdered By: Pippa Coyle on 08-01-2024 Hematocrit (Bld) [Volume fraction] 39.1 % Normal 34.0-46.4 [facility] Comment on above: Performed By: #### V [id number], JULIA, CBC, FE and TIBC #### [facility] [address] [place] [address] Hemoglobin [Mass/volume] in BloodOrdered By: Pippa Lane on 08-01-2024 Hemoglobin (Bld) [Mass/Vol] 13.2 g/dL Normal 11.8-15.4 [facility] Comment on above: Performed By: #### V [id number], JULIA, CBC, FE and TIBC #### [facility] [address] Iron [Mass/volume] in Serum or PlasmaOrdered By: Pippa Lane on 08-01-2024 Iron [Mass/Vol] 76 ug/dL Normal 50-212 [facility] Comment on above: Performed By: #### V [id number], JULIA, CBC, FE and TIBC #### [facility] [address] Iron and TIBC Profileon 07-16 % Iron Saturation 15.7 % Low 20-50 [facility] Comment on above: Performed By: #### V [id number], JULIA, CBC, FE and TIBC #### [facility] [address] [place] [address] Total Iron Binding Capacity 483 ug/dL High 255-450 [facility] Comment on above: Performed By: #### V [id number], JULIA, CBC, FE and TIBC #### [facility] [address] Leukocytes [#/volume] correc leroy for nucleated erythrocytes in Blood by Automated counOrdered By: Pippa Lane on 08-01-2024 WBC corrected for nucl RBC Auto (Bld) [#/Vol] 14.7 10*3/uL High 3.8-11.6 [facility] Leukocytes [#/volume] in Blo od by Automated countOrdered By: Pippa Lane on 08-01-2024 WBC (Bld) [#/Vol] 14.7 10*3/uL High 3.8-11.6 [facility] Comment on above: Performed By: #### V [id number], JULIA, CBC, FE and TIBC #### [facility] [address] [place] [address] Lymphocytes [#/volume] in Bl ood by Automated countOrdered By: Pippa Lane on 08-01-2024 Lymphocytes (Bld) [#/Vol] 3.0 10*3/uL Normal 1.00-4.8 [facility] Comment on above: Performed By: #### V [id number], JULIA, CBC, FE and TIBC #### [facility] [address] Lymphocytes/100 leukocytes i n Blood by Automated countOrdered By: Pippa Lane on 08-01-2024 Lymphocytes/100 WBC (Bld) 20.7 % Normal . [facility] Comment on above: Performed By: #### V [id number], JULIA, CBC, FE and TIBC #### [address] MCH [Entitic mass] by Automa leroy countOrdered By: Pippa Lane on 08-01-2024 MCH (RBC) [Entitic mass] 30.3 pg Normal 24.7-34.3 [facility] Comment on above: Performed By: #### V [id number], JULIA, CBC, FE and TIBC #### [address] MCHC Auto (RBC) [Mass/Vol]Or dered By: Pippa Lane on 08-01-2024 MCHC (RBC) [Mass/Vol] 33.9 g/dL 32.0-35.0 [facility] MCV [Entitic volume] by Auto mated countOrdered By: Pippa Lane on 08-01-2024 MCV (RBC) [Entitic vol] 89.5 fL Normal 80-100 [facility] Comment on above: Performed By: #### V [id number], JULIA, CBC, FE and TIBC #### [facility] [address] [place] [address] Monocytes [#/volume] in Bloo d by Automated countOrdered By: Pippa Lane on 08-01-2024 Monocytes (Bld) [#/Vol] 1.0 10*3/uL High 0.0-0.8 [facility] Comment on above: Performed By: #### V [id number], JULIA, CBC, FE and TIBC #### [place] [address] [place] Monocytes/100 leukocytes in Blood by Automated countOrdered By: Pippa Lane on 08-01-2024 Monocytes/100 WBC (Bld) 6.6 % Normal . [facility] Comment on above: Performed By: #### V [id number], JULIA, CBC, FE and TIBC #### [address] Neutrophils [#/volume] in Bl ood by Automated countOrdered By: Pippa Lane on 08-01-2024 Neutrophils (Bld) [#/Vol] 10.4 10*3/uL High 1.8-7.7 [facility] Comment on above: Performed By: #### V [id number], JULIA, CBC, FE and TIBC #### [place] [address] [place] Neutrophils/100 leukocytes i n Blood by Automated countOrdered By: trinidad Lane on 08-01-2024 Neutrophils/100 WBC (Bld) 70.8 % Normal . [facility] Comment on above: Performed By: #### V [id number], JULIA, CBC, FE and TIBC #### [address] Nucleated erythrocytes [Pres ence] in Blood by Automated countOrdered By: Pippa Lane on 08-01-2024 Nucleated RBC Auto Ql (Bld) 0.1 /100{WBC} 0-0.5 [facility] Platelet mean volume [Entiti c volume] in Blood by Automated countOrdered By: Pippa Lane on 08-01-2024 Platelet mean volume (Bld) [Entitic vol] 7.4 fL Normal 6.3-10.7 [facility] Comment on above: Performed By: #### V [id number], JULIA, CBC, FE and TIBC #### [address] Platelets [#/volume] in Bloo d by Automated countOrdered By: trinidad ByersTahminajenny on 08-01-2024 Platelets (Bld) [#/Vol] 344 10*3/uL Normal 150-450 [facility] Comment on above: Performed By: #### V [id number], JULIA, CBC, FE and TIBC #### [facility] [address] [place] [address] Serum or plasma iron binding capacity measurement (mass/volume)Ordered By: trinidad Lane on 08-01-2024 Iron binding capacity [Mass/Vol] 483 ug/dL High 255-450 [facility] Serum or plasma iron saturat ion measurement (mass fraction)Ordered By: trinidad Coyle on 08-01-2024 Iron saturation [Mass fraction] 15.7 % Low 20-50 [facility] Transferrin [Mass/volume] in Serum or PlasmaOrdered By: trinidad Lane on 08-01-2024 Transferrin [Mass/Vol] 345 mg/dL Normal 203-362 [facility] Comment on above: Performed By: #### V [id number], JULIA, CBC, FE and TIBC #### [facility] [address] [place] [address] Vit. B12/Folate Profileon Folate 37.0 ng/mL Normal >5.9 [facility] Comment on above: Result Comment: Vanesa te reference range: >5.9 ng/ml The WHO technical consultation on folate and vitamin b12 deficiencies has determined that folate concentrations less than 4 ng/ml are considered deficient. PERFORMED BY: [place] [address] PATHOLOGIST TE[employer]ER OF THE DEAF/HARD [employer] HEARING MICHELLE BENNETT M.D. Performed By: #### V [id number], JULIA, CBC, FE and TIBC #### [address] Vitamin B12 ser/plasOrdered By: trinidad Lane on 08-01-2024 Cobalamin (Vitamin B12) [Mass/Vol] 486 pg/mL Normal 180-914 [facility] Comment on above: Performed By: #### V [id number], JULIA, CBC, FE and TIBC #### [facility] [address] [place] [address] No Panel Informationon 07-25 Glucose, UA Negative Negative - 1999(110) ++++ mg/dL [facility] Protein, UA Negative Negative - 1999(20) ++++ mg/dL [facility] Quick Strepon 07-22-2024 Quick Strep Streptococcus pyogenes Ag [Presence] in Throat by Rapid immunoassay Negative for Group A Strep Antigen Note 1 NOTE 2 Results are those of a screening test. NOTE 3 If clinically indicated please order a culture. NOTE 4 NOTE 5 Reference range = Negative PERFORMED BY: [place] [address] PATHOLOGIST TE[employer]ER OF THE DEAF/HARD OF HEARING MICHELLE BENNETT M.D. Normal [facility] Comment on above: Performed By: #### V [id number], JULIA, CBC, FE and TIBC #### [address] Streptococcus pyogenes antig en detectionOrdered By: Aric Norris on 07-22-2024 S. pyogenes Ag Ql (Unsp spec) Streptococcus pyogenes antigen detection [facility] S. pyogenes Ag Ql (Unsp spec) [facility] No Panel Informationon 07-11 Glucose, UA Negative Negative - 1999(110) ++++ mg/dL [facility] Protein, UA Negative Negative - 1999(20) ++++ mg/dL [facility] Basophils Auto (Bld) [#/Vol] Ordered By: MINNA Hernandez on 07-02-2024 Basophils (Bld) [#/Vol] Automated basophil count 0.0-0.2 [facility] Basophils [#/volume] in Bloo d by Automated countOrdered By: MINNA Hernandez on 07-02-2024 Basophils (Bld) [#/Vol] 0.1 10*3/uL Normal 0.0-0.2 [facility] Comment on above: Result Comment: PERF ORMED BY: [place] [address] PATHOLOGIST TE[employer]ER OF THE DEAF/H[employer] HEARING FAN GALEAS M.D. Performed By: #### C BC #### [facility] [address] Basophils/100 WBC Auto (Bld) Ordered By: MINNA Hernandez on 07-02-2024 Basophils/100 WBC (Bld) Automated basophil % . [facility] Basophils/100 leukocytes in Blood by Automated countOrdered By: MINNA Hernandez on 07-02-2024 Basophils/100 WBC (Bld) 0.7 % Normal . [facility] Comment on above: Performed By: #### C BC #### [facility] [address] CBC W Auto Differential pane l (Bld)on 07-02-2024 Basophils (Bld) [#/Vol] 0.1 10*3/uL 0.0 - 0.2 10*3/uL [facility] Basophils/100 WBC Manual cnt (Syn fld) 0.7 % . [facility] Eosinophils (Bld) [#/Vol] 0.3 10*3/uL 0.0 - 0.45 10*3/uL [facility] Eosinophils/100 WBC Manual cnt (Syn fld) 1.9 % . [facility] Erythrocyte distribution width (RBC) [Ratio] 14.1 % 11.9 - 15.3 % [facility] Hematocrit (Bld) [Volume fraction] 35.9 % 34.0 - 46.4 % [facility] Hemoglobin (Bld) [Mass/Vol] 12 g/dL 11.8 - 15.4 g/dL [facility] Interpretation and review of laboratory results Abnormal [facility] Lymphocytes (Bld) [#/Vol] 3.2 10*3/uL 1.00 - 4.8 10*3/uL [facility] Lymphocytes/100 WBC Manual cnt (Syn fld) 24.5 % . [facility] MCH (RBC) [Entitic mass] 30.5 pg 24.7 - 34.3 pg [facility] MCHC (RBC) [Mass/Vol] 33.5 g/dL 32.0 - 35.0 g/[facility] MCV (RBC) [Entitic vol] 91.1 fL 80 - 100 fL [facility] Monocytes (Bld) [#/Vol] 1 10*3/uL High 0.0 - 0.8 10*3/uL [facility] Monocytes+Macrophages/ 100 WBC Manual cnt (Syn fld) 8.1 % . [facility] Neutrophils (Bld) [#/Vol] 8.4 10*3/uL High 1.8 - 7.7 10*3/uL [facility] Neutrophils/100 WBC Manual cnt (Syn fld) 64.8 % . [facility] NRBC 0.1 /100{WBC} 0 - 0.5 /100{WBC} [facility] Platelet mean volume (Bld) [Entitic vol] 8.3 fL 6.3 - 10.7 fL [facility] Platelets (Bld) [#/Vol] 279 10*3/uL 150 - 450 10*3/uL [facility] RBC LM.HPF (Urine sed) [#/Area] 3.94 10*6/uL 3.60 - 5.00 10*6/uL [facility] WBC (Bld) [#/Vol] 12.9 10*3/uL High 3.8 - 11.6 10*3/uL [facility] WBC LM.HPF (Urine sed) [#/Area] 12.9 10*3/uL High 3.8 - 11.6 10*3/uL [facility] Complete Blood Count Auto Di ffon 07-02-2024 Mean Corpuscular HGB Conc 33.5 g/dL Normal 32.0-35.0 [facility] Comment on above: Performed By: #### C BC #### [facility] [address] NRBC% 0.1 /100{WBC} Normal 0-0.5 [facility] Comment on above: Performed By: #### C BC #### [facility] [address] Eosinophils Auto (Bld) [#/Vo l]Ordered By: MINNA Hernandez on 07-02-2024 Eosinophils (Bld) [#/Vol] Automated eosinophil count 0.0-0.45 [facility] Eosinophils [#/volume] in Bl ood by Automated countOrdered By: MINNA Hernandez on 07-02-2024 Eosinophils (Bld) [#/Vol] 0.3 10*3/uL Normal 0.0-0.45 [facility] Comment on above: Performed By: #### C BC #### [address] Eosinophils/100 WBC Auto (Bl d)Ordered By: MINNA Hernandez on 07-02-2024 Eosinophils/100 WBC (Bld) Automated eosinophil % . [facility] Eosinophils/100 leukocytes i n Blood by Automated countOrdered By: MINNA Hernandez on 07-02-2024 Eosinophils/100 WBC (Bld) 1.9 % Normal . [facility] Comment on above: Performed By: #### C BC #### [address] Erythrocyte distribution wid th Auto (RBC) [Ratio]Ordered By: MINNA Hernandez on 07-02-2024 Erythrocyte distribution width (RBC) [Ratio] Erythrocyte distribution width [Ratio] by Automated count 11.9-15.3 [facility] Erythrocyte distribution wid th [Ratio] by Automated countOrdered By: MINNA Hernandez on 07-02-2024 Erythrocyte distribution width (RBC) [Ratio] 14.1 % Normal 11.9-15.3 [facility] Comment on above: Performed By: #### C BC #### [address] Erythrocytes [#/volume] in B lood by Automated countOrdered By: MINNA Hernandez on 07-02-2024 RBC (Bld) [#/Vol] 3.94 10*6/uL Normal 3.60-5.00 [facility] Comment on above: Performed By: #### C BC #### [facility] [address] Hematocrit Auto (Bld) [Volum e fraction]Ordered By: MINNA Hernandez on 07-02-2024 Hematocrit (Bld) [Volume fraction] Hematocrit [Volume Fraction] of Blood by Automated count 34.0-46.4 [facility] Hematocrit [Volume Fraction] of Blood by Automated countOrdered By: MINNA Hernandez on 07-02-2024 Hematocrit (Bld) [Volume fraction] 35.9 % Normal 34.0-46.4 [facility] Comment on above: Performed By: #### C BC #### [address] Hemoglobin [Mass/volume] in BloodOrdered By: MINNA Hernandez on 07-02-2024 Hemoglobin (Bld) [Mass/Vol] Hemoglobin [Mass/volume] in Blood 11.8-15.4 [facility] Hemoglobin (Bld) [Mass/Vol] 12.0 g/dL Normal 11.8-15.4 [facility] Comment on above: Performed By: #### C BC #### [address] Leukocytes [#/volume] correc leroy for nucleated erythrocytes in Blood by Automated counOrdered By: MINNA Hernandez on 07-02-2024 WBC corrected for nucl RBC Auto (Bld) [#/Vol] Leukocytes [#/volume] corrected for nucleated erythrocytes in Blood by Automated coun High 3.8-11.6 [facility] WBC corrected for nucl RBC Auto (Bld) [#/Vol] 12.9 10*3/uL High 3.8-11.6 [facility] Leukocytes [#/volume] in Blo od by Automated countOrdered By: MINNA Hernandez on 07-02-2024 WBC (Bld) [#/Vol] 12.9 10*3/uL High 3.8-11.6 [facility] Comment on above: Performed By: #### C BC #### [address] Lymphocytes Auto (Bld) [#/Vo l]Ordered By: MINNA Hernandez on 07-02-2024 Lymphocytes (Bld) [#/Vol] Lymphocytes [#/volume] in Blood by Automated count 1.00-4.8 [facility] Lymphocytes [#/volume] in Bl ood by Automated countOrdered By: MINNA Hernandez on 07-02-2024 Lymphocytes (Bld) [#/Vol] 3.2 10*3/uL Normal 1.00-4.8 [facility] Comment on above: Performed By: #### C BC #### [address] Lymphocytes/100 WBC Auto (Bl d)Ordered By: MINNA Hernandez on 07-02-2024 Lymphocytes/100 WBC (Bld) Lymphocytes/100 leukocytes in Blood by Automated count . [facility] Lymphocytes/100 leukocytes i n Blood by Automated countOrdered By: MINNA Hernandez on 07-02-2024 Lymphocytes/100 WBC (Bld) 24.5 % Normal . [facility] Comment on above: Performed By: #### C BC #### [address] MCH Auto (RBC) [Entitic mass ]Ordered By: MINNA Hernandez on 07-02-2024 MCH (RBC) [Entitic mass] MCH [Entitic mass] by Automated count 24.7-34.3 [facility] MCH [Entitic mass] by Automa leroy countOrdered By: MINNA Hernandez on 07-02-2024 MCH (RBC) [Entitic mass] 30.5 pg Normal 24.7-34.3 [facility] Comment on above: Performed By: #### C BC #### [address] MCHC Auto (RBC) [Mass/Vol]Or dered By: MINNA Hernandez on 07-02-2024 MCHC (RBC) [Mass/Vol] MCHC [Mass/volume] by Automated count 32.0-35.0 [facility] MCHC (RBC) [Mass/Vol] 33.5 g/dL 32.0-35.0 [facility] MCV Auto (RBC) [Entitic vol] Ordered By: MINNA Hernandez on 07-02-2024 MCV (RBC) [Entitic vol] MCV [Entitic volume] by Automated count 80-100 [facility] MCV [Entitic volume] by Auto mated countOrdered By: MINNA Hernandez on 07-02-2024 MCV (RBC) [Entitic vol] 91.1 fL Normal 80-100 [facility] Comment on above: Performed By: #### C BC #### [facility] [address] [place] [address] Monocytes Auto (Bld) [#/Vol] Ordered By: MINNA Hernandez on 07-02-2024 Monocytes (Bld) [#/Vol] Automated blood monocyte count High 0.0-0.8 [facility] Monocytes [#/volume] in Bloo d by Automated countOrdered By: MINNA Hernandez on 07-02-2024 Monocytes (Bld) [#/Vol] 1.0 10*3/uL High 0.0-0.8 [facility] Comment on above: Performed By: #### C BC #### [address] Monocytes/100 WBC Auto (Bld) Ordered By: MINNA Hernandez on 07-02-2024 Monocytes/100 WBC (Bld) Automated monocyte % . [facility] Monocytes/100 leukocytes in Blood by Automated countOrdered By: MINNA Hernandez on 07-02-2024 Monocytes/100 WBC (Bld) 8.1 % Normal . [facility] Comment on above: Performed By: #### C BC #### [place] [address] [place] Neutrophils Auto (Bld) [#/Vo l]Ordered By: MINNA Hernandez on 07-02-2024 Neutrophils (Bld) [#/Vol] Neutrophils [#/volume] in Blood by Automated count High 1.8-7.7 [facility] Neutrophils [#/volume] in Bl ood by Automated countOrdered By: MINNA Hernandez on 07-02-2024 Neutrophils (Bld) [#/Vol] 8.4 10*3/uL High 1.8-7.7 [facility] Comment on above: Performed By: #### C BC #### [facility] [address] [place] [address] [place] Neutrophils/100 WBC Auto (Bl d)Ordered By: MINNA Hernandez on 07-02-2024 Neutrophils/100 WBC (Bld) Automated neutrophil % . [facility] Neutrophils/100 leukocytes i n Blood by Automated countOrdered By: MINNA Hernandez on 07-02-2024 Neutrophils/100 WBC (Bld) 64.8 % Normal . [facility] Comment on above: Performed By: #### C BC #### [facility] [address] [place] [address] [place] Nucleated erythrocytes [Pres ence] in Blood by Automated countOrdered By: MINNA Hernandez on 07-02-2024 Nucleated RBC Auto Ql (Bld) Nucleated erythrocytes [Presence] in Blood by Automated count 0-0.5 [facility] Nucleated RBC Auto Ql (Bld) 0.1 /100{WBC} 0-0.5 [facility] Platelet mean volume Auto (B ld) [Entitic vol]Ordered By: MINNA Hernandez on 07-02-2024 Platelet mean volume (Bld) [Entitic vol] Platelet mean volume [Entitic volume] in Blood by Automated count 6.3-10.7 [facility] Platelet mean volume [Entiti c volume] in Blood by Automated countOrdered By: MARY Hernandez on 07-02-2024 Platelet mean volume (Bld) [Entitic vol] 8.3 fL Normal 6.3-10.7 [facility] Comment on above: Performed By: #### C BC #### [facility] [address] [place] [address] [place] Platelets Auto (Bld) [#/Vol] Ordered By: MINNA Hernandez on 07-02-2024 Platelets (Bld) [#/Vol] Platelets [#/volume] in Blood by Automated count 150-450 [facility] Platelets [#/volume] in Bloo d by Automated countOrdered By: MINNA Hernandez on 07-02-2024 Platelets (Bld) [#/Vol] 279 10*3/uL Normal 150-450 [facility] Comment on above: Performed By: #### C BC #### [address] RBC Auto (Bld) [#/Vol]Ordere d By: MINNA Hernandez on 07-02-2024 RBC (Bld) [#/Vol] Erythrocytes [#/volume] in Blood by Automated count 3.60-5.00 [facility] US abdomen limitedon 025 US abdomen limited [facility] [place] [address] [place] [address] Ultrasound Report Signed Patient: Danelle Guido MR#: [id number] 64 : 2000 Acct:[id number] Age/Sex: 24 / F ADM Date: 07/01/24 Loc: E3 Room: Type: [facility] Attending Dr: Corina Hernandez MD Ordering Provider: [...] Gibson M.D. 07/02/2024 9:58 AM Dictation Location: [place] [address] Tech: Margie Soto Transcribed By: GLORIA 07/02/24957 Dictated By: Iftikhar Gibson DO 07/02/24957 Signed By: 07/02/24957 Normal [facility] WBC Auto (Bld) [#/Vol]Ordere d By: MINNA Hernandez on 07-02-2024 WBC (Bld) [#/Vol] Leukocytes [#/volume] in Blood by Automated count High 3.8-11.6 [facility] Alanine aminotransferase [En zymatic activity/volume] in Serum or PlasmaOrdered By: MINNA Hernandez on 07-01-2024 ALT [Catalytic activity/Vol] Alanine aminotransferase [Enzymatic activity/volume] in Serum or Plasma [facility] ALT [Catalytic activity/Vol] 12 U/L Normal [facility] Comment on above: Performed By: #### V [id number], JULIA, CBC, FE and TIBC #### [facility] [address] Albumin [Mass/volume] in Ser um or Plasma by Bromocresol green (BCG) dye binding methoOrdered By: MINNA Hernandez on 07-01-2024 Albumin BCG dye [Mass/Vol] Albumin [Mass/volume] in Serum or Plasma by Bromocresol green (BCG) dye binding metho Low 3.5-5.7 [facility] Albumin BCG dye [Mass/Vol] 3.4 g/dL Low 3.5-5.7 [facility] Alkaline phosphatase [Enzyma tic activity/volume] in Serum or PlasmaOrdered By: MINNA Hernandez on 07-01-2024 ALP [Catalytic activity/Vol] Alkaline phosphatase [Enzymatic activity/volume] in Serum or Plasma 34- [facility] ALP [Catalytic activity/Vol] 50 U/L Normal [facility] Comment on above: Performed By: #### V [id number], JULIA, CBC, FE and TIBC #### [facility] [address] Appearance of UrineOrdered B y: MINNA Hernandez on 07-01-2024 Appearance (U) Urine appearance Clear [facility] Appearance (U) Clear Normal Clear [facility] Comment on above: Order Comment: Name Collection Type:: Clean-Voided Midstream Performed By: #### V [id number], JULIA, CBC, FE and TIBC #### [facility] [address] [place] [address] [place] Aspartate aminotransferase [ Enzymatic activity/volume] in Serum or PlasmaOrdered By: MINNA Hernandez on 07-01-2024 AST [Catalytic activity/Vol] Aspartate aminotransferase [Enzymatic activity/volume] in Serum or Plasma Low 13-39 [facility] AST [Catalytic activity/Vol] 12 U/L Low 13-39 [facility] Comment on above: Performed By: #### V [id number], JULIA, CBC, FE and TIBC #### [facility] [address] [place] [address] [place] Bacteria [Presence] in Urine by AutomatedOrdered By: MINNA Hernandez on 07-01-2024 Bacteria Auto Ql (U) Bacteria [Presence] in Urine by Automated None Seen [facility] Bacteria Auto Ql (U) None seen [HPF] None Seen [facility] Bilirubin Test strip Ql (U)O rdered By: MINNA Hernandez on 07-01-2024 Bilirubin Ql (U) Bilirubin.total [Presence] in Urine by Test strip Negative [facility] Bilirubin Ql (U) Negative Negative [facility] Bilirubin.total [Mass/volume ] in Serum or PlasmaOrdered By: MINNA Hernandez on 07-01-2024 Bilirubin [Mass/Vol] Bilirubin.total [Mass/volume] in Serum or Plasma Low 0.3-1.0 [facility] Bilirubin [Mass/Vol] 0.1 mg/dL Low 0.3-1.0 [facility] Comment on above: Performed By: #### V [id number], JULIA, CBC, FE and TIBC #### [facility] [address] [place] [id number] [place] CBC W Auto Differential pane l (Bld)on 07-01-2024 Basophils (Bld) [#/Vol] 0.1 10*3/uL 0.0 - 0.2 10*3/uL [facility] Basophils/100 WBC Manual cnt (Syn fld) 0.6 % . [facility] Eosinophils (Bld) [#/Vol] 0.3 10*3/uL 0.0 - 0.45 10*3/uL [facility] Eosinophils/100 WBC Manual cnt (Syn fld) 1.8 % . [facility] Erythrocyte distribution width (RBC) [Ratio] 14 % 11.9 - 15.3 % [facility] Hematocrit (Bld) [Volume fraction] 36.8 % 34.0 - 46.4 % [facility] Hemoglobin (Bld) [Mass/Vol] 12.4 g/dL 11.8 - 15.4 g/dL [facility] Interpretation and review of laboratory results Abnormal [facility] Lymphocytes (Bld) [#/Vol] 3.4 10*3/uL 1.00 - 4.8 10*3/uL [facility] Lymphocytes/100 WBC Manual cnt (Syn fld) 24.1 % . [facility] MCH (RBC) [Entitic mass] 30.5 pg 24.7 - 34.3 pg [facility] MCHC (RBC) [Mass/Vol] 33.7 g/dL 32.0 - 35.0 g/dL [facility] MCV (RBC) [Entitic vol] 90.7 fL 80 - 100 fL [facility] Monocytes (Bld) [#/Vol] 1.4 10*3/uL High 0.0 - 0.8 10*3/uL [facility] Monocytes+Macrophages/ 100 WBC Manual cnt (Syn fld) 9.5 % . [facility] Neutrophils (Bld) [#/Vol] 9.1 10*3/uL High 1.8 - 7.7 10*3/uL [facility] Neutrophils/100 WBC Manual cnt (Syn fld) 64 % . [facility] NRBC 0 /100{WBC} 0 - 0.5 /100{WBC} [facility] Platelet mean volume (Bld) [Entitic vol] 8.1 fL 6.3 - 10.7 fL [facility] Platelets (Bld) [#/Vol] 301 10*3/uL 150 - 450 10*3/uL [facility] RBC LM.HPF (Urine sed) [#/Area] 4.06 10*6/uL 3.60 - 5.00 10*6/uL [facility] WBC (Bld) [#/Vol] 14.3 10*3/uL High 3.8 - 11.6 10*3/uL [facility] WBC LM.HPF (Urine sed) [#/Area] 14.3 10*3/uL High 3.8 - 11.6 10*3/uL [facility] Calcium [Mass/volume] in Ser um or PlasmaOrdered By: MINNA Hernandez on 07-01-2024 Calcium [Mass/Vol] Calcium [Mass/volume] in Serum or Plasma 8.6-10.3 [facility] Calcium [Mass/Vol] 8.9 mg/dL Normal 8.6-10.3 [facility] Comment on above: Performed By: #### V [id number], JULIA, CBC, FE and TIBC #### [facility] [address] Calcium oxalate crystals [Pr esence] in Urine by Computer assisted methodOrdered By: MINNA Hernandez on 07-01-2024 Calcium oxalate crystals Computer assisted Ql (U) Calcium oxalate crystals [Presence] in Urine by Computer assisted method [facility] Calcium oxalate crystals Computer assisted Ql (U) 1+ [HPF] [facility] Carbon dioxide, total [Moles /volume] in Serum or PlasmaOrdered By: MINNA Hernandez on 07-01-2024 CO2 [Moles/Vol] Carbon dioxide, total [Moles/volume] in Serum or Plasma Low 21.0-31.0 [facility] CO2 [Moles/Vol] 20.6 mmol/L Low 21.0-31.0 [facility] Comment on above: Performed By: #### V [id number], JULIA, CBC, FE and TIBC #### [facility] [address] [place] [address] Chloride [Moles/volume] in S lenore or PlasmaOrdered By: MINNA Hernandez on 07-01-2024 Chloride [Moles/Vol] Chloride [Moles/volume] in Serum or Plasma High 98-107 [facility] Chloride [Moles/Vol] 109 mmol/L High 98-107 [facility] Comment on above: Performed By: #### V [id number], JULIA, CBC, FE and TIBC #### [address] Color Auto (U)Ordered By: MD MARCELO Hernandez on 07-01-2024 Color (U) Color of Urine by Auto Yellow [facility] Color of Urine by AutoOrdere d By: MINNA Hernandez on 07-01-2024 Color (U) Light-yellow Normal Yellow [facility] Comment on above: Order Comment: Name Collection Type:: Clean-Voided Midstream Performed By: #### V [id number], JULIA, CBC, FE and TIBC #### [address] Complete Blood Count Auto Di ffon 07-01-2024 Basophils (Bld) [#/Vol] 0.1 10*3/uL Normal 0.0-0.2 [facility] Comment on above: Result Comment: PERF ORMED BY: [place] [address] PATHOLOGIST TEACHER OF THE DEAF/HARD OF HEARING FAN GALEAS M.D. Performed By: #### V [id number], JULIA, CBC, FE and TIBC #### [address] Basophils/100 WBC (Bld) 0.6 % Normal . [facility] Comment on above: Performed By: #### V [id number], JULIA, CBC, FE and TIBC #### [facility] [address] [place] [address] [place] Eosinophils (Bld) [#/Vol] 0.3 10*3/uL Normal 0.0-0.45 [facility] Comment on above: Performed By: #### V [id number], JULIA, CBC, FE and TIBC #### [place] [address] [place] Eosinophils/100 WBC (Bld) 1.8 % Normal . [facility] Comment on above: Performed By: #### V [id number], JULIA, CBC, FE and TIBC #### [address] Erythrocyte distribution width (RBC) [Ratio] 14.0 % Normal 11.9-15.3 [facility] Comment on above: Performed By: #### V [id number], JULIA, CBC, FE and TIBC #### [address] Hematocrit (Bld) [Volume fraction] 36.8 % Normal 34.0-46.4 [facility] Comment on above: Performed By: #### V [id number], JULIA, CBC, FE and TIBC #### [address] Hemoglobin (Bld) [Mass/Vol] 12.4 g/dL Normal 11.8-15.4 [facility] Comment on above: Performed By: #### V [id number], JULIA, CBC, FE and TIBC #### [address] Lymphocytes (Bld) [#/Vol] 3.4 10*3/uL Normal 1.00-4.8 [facility] Comment on above: Performed By: #### V [id number], JULIA, CBC, FE and TIBC #### [address] Lymphocytes/100 WBC (Bld) 24.1 % Normal . [facility] Comment on above: Performed By: #### V [id number], JULIA, CBC, FE and TIBC #### [address] MCH (RBC) [Entitic mass] 30.5 pg Normal 24.7-34.3 [facility] Comment on above: Performed By: #### V [id number], JULIA, CBC, FE and TIBC #### [address] MCV (RBC) [Entitic vol] 90.7 fL Normal 80-100 [facility] Comment on above: Performed By: #### V [id number], JULIA, CBC, FE and TIBC #### [address] Mean Corpuscular HGB Conc 33.7 g/dL Normal 32.0-35.0 [facility] Comment on above: Performed By: #### V [id number], JULIA, CBC, FE and TIBC #### [address] Monocytes (Bld) [#/Vol] 1.4 10*3/uL High 0.0-0.8 [facility] Comment on above: Performed By: #### V [id number], JULIA, CBC, FE and TIBC #### [address] Monocytes/100 WBC (Bld) 9.5 % Normal . [facility] Comment on above: Performed By: #### V [id number], JULIA, CBC, FE and TIBC #### [address] Neutrophils (Bld) [#/Vol] 9.1 10*3/uL High 1.8-7.7 [facility] Comment on above: Performed By: #### V [id number], JULIA, CBC, FE and TIBC #### [address] Neutrophils/100 WBC (Bld) 64.0 % Normal . [facility] Comment on above: Performed By: #### V [id number], JULIA, CBC, FE and TIBC #### [address] NRBC% 0.0 /100{WBC} Normal 0-0.5 [facility] Comment on above: Performed By: #### V [id number], JULIA, CBC, FE and TIBC #### [address] Platelet mean volume (Bld) [Entitic vol] 8.1 fL Normal 6.3-10.7 [facility] Comment on above: Performed By: #### V [id number], JULIA, CBC, FE and TIBC #### [address] Platelets (Bld) [#/Vol] 301 10*3/uL Normal 150-450 [facility] Comment on above: Performed By: #### V [id number], JLUIA, CBC, FE and TIBC #### [address] RBC (Bld) [#/Vol] 4.06 10*6/uL Normal 3.60-5.00 [facility] Comment on above: Performed By: #### V [id number], JULIA, CBC, FE and TIBC #### [address] WBC (Bld) [#/Vol] 14.3 10*3/uL High 3.8-11.6 [facility] Comment on above: Performed By: #### V [id number], JULIA, CBC, FE and TIBC #### [address] Comprehensive Metabolic Pane [facility] 07-01-2024 Albumin [Mass/Vol] 3.4 g/dL Low 3.5-5.7 [facility] Comment on above: Performed By: #### V [id number], JULIA, CBC, FE and TIBC #### [address] Creatinine Clr Calc Pharmacy 179.81 Normal [facility] Comment on above: Result Comment: PERF ORMED BY: [place] [address] PATHOLOGIST TEACHER OF THE DEAF/HARD OF HEARING FAN GALEAS M.D. Performed By: #### V [id number], JULIA, CBC, FE and TIBC #### [address] GFR/1.73 sq M.predicted MDRD (S/P/Bld) [Vol rate/Area] mL/min/{1.73_m2} Normal [facility] Comment on above: Performed By: #### V [id number], JULIA, CBC, FE and TIBC #### [address] Creatinine [Mass/volume] in Serum or PlasmaOrdered By: MINNA Hernandez on 07-01-2024 Creatinine [Mass/Vol] Creatinine [Mass/volume] in Serum or Plasma Low 0.60-1.20 [facility] Creatinine [Mass/Vol] 0.51 mg/dL Low 0.60-1.20 [facility] Comment on above: Performed By: #### V [id number], JULIA, CBC, FE and TIBC #### [address] Dipstick and Microscopicon 0 07-01-2024 Bacteria,Urine None Seen Normal None Seen [facility] Comment on above: Order Comment: Name Collection Type:: Clean-Voided Midstream Performed By: #### V [id number], JULIA, CBC, FE and TIBC #### [address] Bilirubin,Urine Negative Normal Negative [facility] Comment on above: Order Comment: Name Collection Type:: Clean-Voided Midstream Performed By: #### V [id number], JULIA, CBC, FE and TIBC #### [address] Calcium Oxalate Crystals,Urine 1+ Normal [facility] Comment on above: Order Comment: Name Collection Type:: Clean-Voided Midstream Performed By: #### V [id number], JULIA, CBC, FE and TIBC #### [address] Glucose Ql (U) Normal Normal Normal [facility] Comment on above: Order Comment: Name Collection Type:: Clean-Voided Midstream Performed By: #### V [id number], JULIA, CBC, FE and TIBC #### [facility] [address] [place] [id number] [place] Hyaline Casts,Urine 0-8 Normal 0-8 [facility] Comment on above: Order Comment: Name Collection Type:: Clean-Voided Midstream Performed By: #### V [id number], JULIA, CBC, FE and TIBC #### [facility] [address] [place] [address] [place] Mucus,Urine Rare Normal [facility] Comment on above: Order Comment: Name Collection Type:: Clean-Voided Midstream Result Comment: PERF ORMED BY: [place] [address] PATHOLOGIST TEACHER OF THE DEAF/HARD OF HEARING FAN GALEAS M.D. Performed By: #### V [id number], JULIA, CBC, FE and TIBC #### [place] [address] [place] Nitrite,Urine Negative Normal Negative [facility] Comment on above: Order Comment: Name Collection Type:: Clean-Voided Midstream Performed By: #### V [id number], JULIA, CBC, FE and TIBC #### [place] [address] [place] Occult Blood,Urine Negative Normal Negative [facility] Comment on above: Order Comment: Name Collection Type:: Clean-Voided Midstream Result Comment: PERF ORMED BY: [place] [address] PATHOLOGIST TEACHER OF THE DEAF/HARD OF HEARING FAN GALEAS M.D. Performed By: #### V [id number], JULIA, CBC, FE and TIBC #### [place] [id number] [place] Protein,Urine Negative Normal Negative [facility] Comment on above: Order Comment: Name Collection Type:: Clean-Voided Midstream Performed By: #### V [id number], JULIA, CBC, FE and TIBC #### [place] [id number] [place] RBC,Urine 1-2 Normal 0-4 [facility] Comment on above: Order Comment: Name Collection Type:: Clean-Voided Midstream Performed By: #### V [id number], JULIA, CBC, FE and TIBC #### [address] Specificy [place],Urine 1.023 Normal 1.001-1.030 [facility] Comment on above: Order Comment: Name Collection Type:: Clean-Voided Midstream Performed By: #### V [id number], JULIA, CBC, FE and TIBC #### [address] Squamous Epithelial Cell,Urine 5-9 High 0-2 [facility] Comment on above: Order Comment: Name Collection Type:: Clean-Voided Midstream Performed By: #### V [id number], JULIA, CBC, FE and TIBC #### [address] Urobilinogen,Urine Normal Normal Normal [facility] Comment on above: Order Comment: Name Collection Type:: Clean-Voided Midstream Performed By: #### V [id number], JULIA, CBC, FE and TIBC #### [address] WBC,Urine 5-9 High 0-4 [facility] Comment on above: Order Comment: Name Collection Type:: Clean-Voided Midstream Performed By: #### V [id number], JULAI, CBC, FE and TIBC #### [address] Epithelial cells.squamous [# /area] in Urine sediment by Automated countOrdered By: MINNA Hernandez on 07-01-2024 Epithelial cells.squamous Auto (Urine sed) [#/Area] Epithelial cells.squamous [#/area] in Urine sediment by Automated count High 0-2 [facility] Epithelial cells.squamous Auto (Urine sed) [#/Area] 5-9 [HPF] High 0-2 [facility] Erythrocytes [#/area] in Uri ne sediment by Automated countOrdered By: MINNA Hernandez on 07-01-2024 RBC Auto (Urine sed) [#/Area] Erythrocytes [#/area] in Urine sediment by Automated count 0-4 [facility] RBC Auto (Urine sed) [#/Area] 1-2 [HPF] 0-4 [facility] Globulin Calc (S) [Mass/Vol] Ordered By: MINNA Hernandez on 07-01-2024 Globulin (S) [Mass/Vol] Serum globulin measurement by calculation (mass/volume) [facility] Glucose [Mass/volume] in Ser um or PlasmaOrdered By: MINNA Hernandez on 07-01-2024 Glucose [Mass/Vol] Glucose [Mass/volume] in Serum or Plasma 70-100 [facility] Comment on above: ADA recommended refe rence rangeRandom Glucose Reference Range is dependent on time and content of last meal. Glucose of more than 200 mg/dL in a nonstressed, ambulatory subject supports the diagnosis of Diabetes Mellitus. Glucose [Mass/Vol] 89 mg/dL Normal 70-100 [facility] Comment on above: ADA recommended refe rence rangeRandom Glucose Reference Range is dependent on time and content of last meal. Glucose of more than 200 mg/dL in a nonstressed, ambulatory subject supports the diagnosis of Diabetes Mellitus. Result Comment: [place] om Glucose Reference Range is dependent on time and content of last meal. Glucose of more than 200 mg/dL in a nonstressed, ambulatory subject supports the diagnosis of Diabetes Mellitus. ADA recommended reference range Performed By: #### V [id number], JULIA, CBC, FE and TIBC #### [facility] [address] [place] [address] Glucose [Mass/volume] in Uri ne by Test stripOrdered By: MINNA Hernandez on 07-01-2024 Glucose Test strip (U) [Mass/Vol] Glucose [Mass/volume] in Urine by Test strip Normal [facility] Glucose Test strip (U) [Mass/Vol] Normal mg/dL Normal [facility] Hemoglobin Test strip Ql (U) Ordered By: MINNA Hernandez on 07-01-2024 Hemoglobin Ql (U) Hemoglobin [Presence] in Urine by Test strip Negative [facility] Hemoglobin Ql (U) Negative Negative [facility] Hyaline casts [#/area] in Ur ine sediment by Automated countOrdered By: MINNA Hernandez on 07-01-2024 Hyaline casts Auto (Urine sed) [#/Area] Hyaline casts [#/area] in Urine sediment by Automated count 0-8 [facility] Hyaline casts Auto (Urine sed) [#/Area] 0-8 [LPF] 0-8 [facility] Ketones Test strip Ql (U)Ord ered By: MINNA Hernandez on 07-01-2024 Ketones Ql (U) Ketones [Presence] in Urine by Test strip High Negative [facility] Ketones [Presence] in Urine by Test stripOrdered By: MINNA Hernandez on 07-01-2024 Ketones Ql (U) 1+ High Negative [facility] Comment on above: Order Comment: Name Collection Type:: Clean-Voided Midstream Performed By: #### V [id number], JULIA, CBC, FE and TIBC #### [facility] [address] Leukocyte esterase [Presence ] in Urine by Test stripOrdered By: MINNA Hernandez on 07-01-2024 Leukocyte esterase Test strip Ql (U) Leukocyte esterase [Presence] in Urine by Test strip High Negative [facility] Leukocyte esterase Test strip Ql (U) 1+ High Negative [facility] Comment on above: Order Comment: Name Collection Type:: Clean-Voided Midstream Performed By: #### V [id number], JULIA, CBC, FE and TIBC #### [facility] [address] [place] [address] [place] Leukocytes [#/area] in Urine sediment by Automated countOrdered By: MINNA Hernandez on 07-01-2024 WBC Auto (Urine sed) [#/Area] Leukocytes [#/area] in Urine sediment by Automated count High 0-4 [facility] WBC Auto (Urine sed) [#/Area] 5-9 [HPF] High 0-4 [facility] Mucus [Presence] in Urine by AutomatedOrdered By: MINNA Hernandez on 07-01-2024 Mucus Auto Ql (U) Mucus [Presence] in Urine by Automated [facility] Mucus Auto Ql (U) Rare [LPF] [facility] Nitrite Test strip Ql (U)Ord ered By: MINNA Hernandez on 07-01-2024 Nitrite Ql (U) Nitrite [Presence] in Urine by Test strip Negative [facility] Nitrite Ql (U) Negative Negative [facility] No Panel InformationOrdered By: MINNA Hernandez on 07-01-2024 Estimated GFR (CKD-EPI) > 60.0 mL/Min [facility] Creatinine Clearance (Chem 179.81 [facility] Potassium [Moles/volume] in Serum or PlasmaOrdered By: MINNA Hernandez on 07-01-2024 Potassium [Moles/Vol] Potassium [Moles/volume] in Serum or Plasma 3.5-5.1 [facility] Potassium [Moles/Vol] 3.6 mmol/L Normal 3.5-5.1 [facility] Comment on above: Performed By: #### V [id number], JULIA, CBC, FE and TIBC #### [facility] [address] [place] [address] [place] Protein Test strip (U) [Mass /Vol]Ordered By: MINNA Hernandez on 07-01-2024 Protein (U) [Mass/Vol] Protein [Mass/volume] in Urine by Test strip Negative [facility] Protein (U) [Mass/Vol] Negative Negative [facility] Protein [Mass/volume] in Ser um or PlasmaOrdered By: MINNA Hernandez on 07-01-2024 Protein [Mass/Vol] Protein [Mass/volume] in Serum or Plasma Low 6.4-8.9 [facility] Protein [Mass/Vol] 5.6 g/dL Low 6.4-8.9 [facility] Comment on above: Performed By: #### V [id number], JULIA, CBC, FE and TIBC #### [facility] [address] Serum globulin measurement b y calculation (mass/volume)Ordered By: MINNA Hernandez on 07-01-2024 Globulin (S) [Mass/Vol] 2.2 g/dL Normal [facility] Comment on above: Performed By: #### V [id number], JULIA, CBC, FE and TIBC #### [address] Serum or plasma albumin/glob ulin mass ratioOrdered By: MINNA Hernandez on 07-01-2024 Albumin/Globulin [Mass ratio] Serum or plasma albumin/globulin mass ratio [facility] Albumin/Globulin [Mass ratio] 1.5 {ratio} Normal [facility] Comment on above: Performed By: #### V [id number], JULIA, CBC, FE and TIBC #### [address] Serum or plasma anion gap de terminationOrdered By: MINNA Hernandez on 07-01-2024 Anion gap [Moles/Vol] Serum or plasma anion gap determination 6.0-15.0 [facility] Anion gap [Moles/Vol] 13.0 mmol/L Normal 6.0-15.0 [facility] Comment on above: Performed By: #### V [id number], JULIA, CBC, FE and TIBC #### [address] Sodium [Moles/volume] in Ser um or PlasmaOrdered By: MINNA Hernandez on 07-01-2024 Sodium [Moles/Vol] Sodium [Moles/volume] in Serum or Plasma 136-145 [facility] Sodium [Moles/Vol] 139 mmol/L Normal 136-145 [facility] Comment on above: Performed By: #### V [id number], JULIA, CBC, FE and TIBC #### [address] Specific gravity Test strip (U) [Rel density]Ordered By: MINNA Hernandez on 07-01-2024 Specific gravity (U) [Rel density] Specific gravity of Urine by Test strip 1.001-1.030 [facility] Specific gravity (U) [Rel density] 1.023 1.001-1.030 [facility] Urea nitrogen [Mass/volume] in Serum or PlasmaOrdered By: MINNA Hernandez on 07-01-2024 Urea nitrogen [Mass/Vol] Urea nitrogen [Mass/volume] in Serum or Plasma Low 7-25 [facility] Urea nitrogen [Mass/Vol] 6 mg/dL Low 7-25 [facility] Comment on above: Performed By: #### V [id number], JULIA, CBC, FE and TIBC #### [facility] [address] Urinalysis complete panel (U )on 07-01-2024 Appearance (U) Clear Clear [facility] BILIRUBIN,URINE Negative Negative [facility] Color (U) Light-Yellow Yellow [facility] Glucose Ql (U) Normal Normal [facility] Interpretation and review of laboratory results Abnormal [facility] Ketones Ql (U) 1+ High Negative [facility] Leukocyte esterase Test strip Ql (U) 1+ High Negative [facility] NITRITE,URINE Negative Negative [facility] OCCULT BLOOD,URINE Negative Negative [facility] pH (U) 6 [pH] 5.0 - 9.0 [facility] PROTEIN,URINE Negative Negative [facility] SPECIFICY GRAVITY,URINE 1.023 1.001 - 1.030 [facility] UROBILINOGEN,URINE Normal Normal [facility] Name Collection Type:: Clean-Voided Midstream [facility] Urine Cultureon 07-01-2024 Bacteria identified Cx Nom (U) Urine Culture Results 20,000 colonies/ml Mixed Bacterial Skin Contaminants 2 Days PERFORMED BY: [place] [address] PATHOLOGIST TEACHER OF THE DEAF/HARD OF HEARING FAN GALEAS M.D. Normal [facility] Comment on above: Performed By: #### V [id number], JULIA, CBC, FE and TIBC #### [facility] [address] [place] [address] Urine cultureOrdered By: MARY Hernandez on 07-01-2024 Bacteria identified Cx Nom (U) Urine culture [facility] Bacteria identified Cx Nom (U) [facility] Urobilinogen Test strip (U) [Mass/Vol]Ordered By: MINNA Hernandez on 07-01-2024 Urobilinogen (U) [Mass/Vol] Urobilinogen [Mass/volume] in Urine by Test strip Normal [facility] Urobilinogen (U) [Mass/Vol] Normal mg/dL Normal [facility] pH Test strip (U)Ordered By: MINNA Hernandez on 07-01-2024 pH (U) pH of Urine by Test strip 5.0-9.0 [facility] pH of Urine by Test stripOrd ered By: MINNA Hernandez on 07-01-2024 pH (U) 6.0 [pH] Normal 5.0-9.0 [facility] Comment on above: Order Comment: Name Collection Type:: Clean-Voided Midstream Performed By: #### V [id number], JULIA, CBC, FE and TIBC #### [facility] [address] No Panel Informationon 06-27 Glucose, UA Negative Negative - 1999(110) ++++ mg/dL [facility] Protein, UA Negative Negative - 1999(20) ++++ mg/dL [facility] Glucose Tolerance 3 Houron 0 06-24-2024 Glucose Tolerance 3 Hour Normal [facility] Comment on above: Result Comment: FAST ING 89 Col: 06/24/24 0725 1HR GLU 188 Col: 06/24/24 0825 2HR GLU 137 Col: 06/24/24 0925 3HR GLU 110 Col: 06/24/24 1025 NON-GESTATIONAL GESTATIONAL FASTING 70-100 < 92 1 HOUR < 200 < 180 2 HOUR < 140 < 153 3 HOUR NOT ESTABLISHED < 140 PERFORMED BY: [facility] [address] [place] [address] PATHOLOGIST TE[employer]ER OF THE DEAF/HARD OF HEARING FAN GALEAS M.D. Performed By: #### C MP, URIC #### [facility] [address] [place] [address] [place] Serum or plasma glucose tole ajit 3 hours panelOrdered By: Mandy Patel on 06-24-2024 Glucose tolerance 3 hours panel Serum or plasma glucose tolerance 3 hours panel [facility] Comment on above: FASTING 89 Col: 06/15 0725 1HR GLU 188 Col: 06/24/24 0825 2HR GLU 137 Col: 06/24/24 0925 3HR GLU 110 Col: 06/24/24 1025 Glucose tolerance 3 hours panel See comment [facility] Comment on above: FASTING 89 Col: 06/15 0 0725 1HR GLU 188 Col: 06/24/24 0825 2HR GLU 137 Col: 06/24/24 0925 3HR GLU 110 Col: 06/24/24 1025 No Panel Informationon 05-30 Glucose, UA Negative Negative - 1999(110) ++++ mg/dL [facility] Protein, UA Negative Negative - 1999(20) ++++ mg/dL [facility] Alanine aminotransferase [En zymatic activity/volume] in Serum or PlasmaOrdered By: Pippa Lane on 05-16-2024 ALT [Catalytic activity/Vol] Alanine aminotransferase [Enzymatic activity/volume] in Serum or Plasma [facility] ALT [Catalytic activity/Vol] 13 U/L Normal [address] [place] [address] Comment on above: Performed By: #### C MP, CBC, [id number], JULIA, FE and TIBC #### [address] Albumin [Mass/volume] in Ser um or Plasma by Bromocresol green (BCG) dye binding methoOrdered By: Pippa Lane on 05-16-2024 Albumin BCG dye [Mass/Vol] Albumin [Mass/volume] in Serum or Plasma by Bromocresol green (BCG) dye binding metho 3.5-5.7 [facility] Albumin BCG dye [Mass/Vol] 3.7 g/dL 3.5-5.7 [facility] Alkaline phosphatase [Enzyma tic activity/volume] in Serum or PlasmaOrdered By: Pippa Lane on 05-16-2024 ALP [Catalytic activity/Vol] Alkaline phosphatase [Enzymatic activity/volume] in Serum or Plasma 34-104 [facility] ALP [Catalytic activity/Vol] 53 U/L Normal 34-104 [facility] Comment on above: Performed By: #### C MP, CBC, [id number], JULIA, FE and TIBC #### [facility] [address] Aspartate aminotransferase [ Enzymatic activity/volume] in Serum or PlasmaOrdered By: trinidad Lane on 05-16-2024 AST [Catalytic activity/Vol] Aspartate aminotransferase [Enzymatic activity/volume] in Serum or Plasma 13-39 [facility] AST [Catalytic activity/Vol] 13 U/L Normal 13-39 [facility] Comment on above: Performed By: #### C MP, CBC, [id number], JULIA, FE and TIBC #### [facility] [address] Basophils Auto (Bld) [#/Vol] Ordered By: trinidad Lane on 05-16-2024 Basophils (Bld) [#/Vol] Automated basophil count 0.0-0.2 [facility] Basophils/100 WBC Auto (Bld) Ordered By: trinidad Lane on 05-16-2024 Basophils/100 WBC (Bld) Automated basophil % . [facility] Bilirubin.total [Mass/volume ] in Serum or PlasmaOrdered By: trinidad Lane on 05-16-2024 Bilirubin [Mass/Vol] Bilirubin.total [Mass/volume] in Serum or Plasma Low 0.3-1.0 [facility] Bilirubin [Mass/Vol] 0.2 mg/dL Low 0.3-1.0 [facility] Comment on above: Performed By: #### C MP, CBC, [id number], JULIA, FE and TIBC #### [facility] [address] Calcium [Mass/volume] in Ser um or PlasmaOrdered By: trinidad Lane on 05-16-2024 Calcium [Mass/Vol] Calcium [Mass/volume] in Serum or Plasma 8.6-10.3 [facility] Calcium [Mass/Vol] 9.5 mg/dL Normal 8.6-10.3 [facility] Comment on above: Performed By: #### C MP, CBC, [id number], JULIA, FE and TIBC #### [address] Carbon dioxide, total [Moles /volume] in Serum or PlasmaOrdered By: trinidad Coyle on 05-16-2024 CO2 [Moles/Vol] Carbon dioxide, total [Moles/volume] in Serum or Plasma 21.0-31.0 [facility] CO2 [Moles/Vol] 27.0 mmol/L Normal 21.0-31.0 [facility] Comment on above: Performed By: #### C MP, CBC, [id number], JULIA, FE and TIBC #### [address] Chloride [Moles/volume] in S lenore or PlasmaOrdered By: trinidad Lane on 05-16-2024 Chloride [Moles/Vol] Chloride [Moles/volume] in Serum or Plasma 98-107 [facility] Chloride [Moles/Vol] 105 mmol/L Normal 98-107 [facility] Comment on above: Performed By: #### C MP, CBC, [id number], JULIA, FE and TIBC #### [address] Complete Blood Count Auto Di ffon 05-16-2024 Basophils (Bld) [#/Vol] 0.1 10*3/uL Normal 0.0-0.2 [facility] Comment on above: Result Comment: PERF ORMED BY: [place] [address] PATHOLOGIST TEACHER OF THE DEAF/HARD OF HEARING FAN GALEAS M.D. Performed By: #### C MP, CBC, [id number], JULIA, FE and TIBC #### [address] Basophils/100 WBC (Bld) 0.5 % Normal . [facility] Comment on above: Performed By: #### C MP, CBC, [id number], JULIA, FE and TIBC #### [address] Eosinophils (Bld) [#/Vol] 0.2 10*3/uL Normal 0.0-0.45 [facility] Comment on above: Performed By: #### C MP, CBC, [id number], JULIA, FE and TIBC #### [address] Eosinophils/100 WBC (Bld) 1.2 % Normal . [facility] Comment on above: Performed By: #### C MP, CBC, [id number], JULIA, FE and TIBC #### [address] Erythrocyte distribution width (RBC) [Ratio] 13.4 % Normal 11.9-15.3 [facility] Comment on above: Performed By: #### C MP, CBC, [id number], JULIA, FE and TIBC #### [address] Hematocrit (Bld) [Volume fraction] 36.3 % Normal 34.0-46.4 [facility] Comment on above: Performed By: #### C MP, CBC, [id number], JULIA, FE and TIBC #### [address] Hemoglobin (Bld) [Mass/Vol] 12.3 g/dL Normal 11.8-15.4 [facility] Comment on above: Performed By: #### C MP, CBC, [id number], JULIA, FE and TIBC #### [address] Lymphocytes (Bld) [#/Vol] 3.2 10*3/uL Normal 1.00-4.8 [facility] Comment on above: Performed By: #### C MP, CBC, [id number], JULIA, FE and TIBC #### [address] Lymphocytes/100 WBC (Bld) 23.5 % Normal . [facility] Comment on above: Performed By: #### C MP, CBC, [id number], JULIA, FE and TIBC #### [address] MCH (RBC) [Entitic mass] 30.2 pg Normal 24.7-34.3 [facility] Comment on above: Performed By: #### C MP, CBC, [id number], JULIA, FE and TIBC #### [address] MCV (RBC) [Entitic vol] 89.1 fL Normal 80-100 [facility] Comment on above: Performed By: #### C MP, CBC, [id number], JULIA, FE and TIBC #### [address] Mean Corpuscular HGB Conc 33.9 g/dL Normal 32.0-35.0 [facility] Comment on above: Performed By: #### C MP, CBC, [id number], JULIA, FE and TIBC #### [address] Monocytes (Bld) [#/Vol] 1.1 10*3/uL High 0.0-0.8 [facility] Comment on above: Performed By: #### C MP, CBC, [id number], JULIA, FE and TIBC #### [address] Monocytes/100 WBC (Bld) 7.7 % Normal . [facility] Comment on above: Performed By: #### C MP, CBC, [id number], JULIA, FE and TIBC #### [address] Neutrophils (Bld) [#/Vol] 9.2 10*3/uL High 1.8-7.7 [facility] Comment on above: Performed By: #### C MP, CBC, [id number], JULIA, FE and TIBC #### [address] Neutrophils/100 WBC (Bld) 67.1 % Normal . [facility] Comment on above: Performed By: #### C MP, CBC, [id number], JULIA, FE and TIBC #### [address] NRBC% 0.1 /100{WBC} Normal 0-0.5 [facility] Comment on above: Performed By: #### C MP, CBC, [id number], JULIA, FE and TIBC #### [address] Platelet mean volume (Bld) [Entitic vol] 7.8 fL Normal 6.3-10.7 [facility] Comment on above: Performed By: #### C MP, CBC, [id number], JULIA, FE and TIBC #### [address] Platelets (Bld) [#/Vol] 370 10*3/uL Normal 150-450 [facility] Comment on above: Performed By: #### C MP, CBC, [id number], JULIA, FE and TIBC #### [address] RBC (Bld) [#/Vol] 4.07 10*6/uL Normal 3.60-5.00 [facility] Comment on above: Performed By: #### C MP, CBC, [id number], JULIA, FE and TIBC #### [address] WBC (Bld) [#/Vol] 13.8 10*3/uL High 3.8-11.6 [facility] Comment on above: Performed By: #### C MP, CBC, [id number], JULIA, FE and TIBC #### [address] Comprehensive Metabolic Pane jorge 05-16-2024 Albumin [Mass/Vol] 3.7 g/dL Normal 3.5-5.7 [facility] Comment on above: Performed By: #### C MP, CBC, [id number], JULIA, FE and TIBC #### [facility] [address] GFR/1.73 sq M.predicted MDRD (S/P/Bld) [Vol rate/Area] mL/min/{1.73_m2} Normal [facility] Comment on above: Performed By: #### C MP, CBC, [id number], JULIA, FE and TIBC #### [facility] [address] Creatinine [Mass/volume] in Serum or PlasmaOrdered By: Pippa Lane on 05-16-2024 Creatinine [Mass/Vol] Creatinine [Mass/volume] in Serum or Plasma Low 0.60-1.20 [facility] Creatinine [Mass/Vol] 0.51 mg/dL Low 0.60-1.20 [facility] Comment on above: Performed By: #### C MP, CBC, [id number], JULIA, FE and TIBC #### [facility] [address] [place] [address] Eosinophils Auto (Bld) [#/Vo l]Ordered By: Pippa Lane on 05-16-2024 Eosinophils (Bld) [#/Vol] Automated eosinophil count 0.0-0.45 [facility] Eosinophils/100 WBC Auto (Bl d)Ordered By: trinidad Lane on 05-16-2024 Eosinophils/100 WBC (Bld) Automated eosinophil % . [facility] Erythrocyte distribution wid th Auto (RBC) [Ratio]Ordered By: trinidad Lane on 05-16-2024 Erythrocyte distribution width (RBC) [Ratio] Erythrocyte distribution width [Ratio] by Automated count 11.9-15.3 [facility] Ferritinon 05-16-2024 Ferritin [Mass/Vol] 36.2 ng/mL Normal 11.0-306.8 [facility] Comment on above: Performed By: #### C MP, URIC #### [facility] [address] [place] [address] Ferritin [Mass/volume] in Se rum or PlasmaOrdered By: Pippa Lane on 05-16-2024 Ferritin [Mass/Vol] Ferritin [Mass/volume] in Serum or Plasma 11.0-306.8 [facility] Folate [Mass/volume] in Seru m or PlasmaOrdered By: Pippa Lane on 05-16-2024 Folate [Mass/Vol] Folate [Mass/volume] in Serum or Plasma >5.9 [facility] Comment on above: Folate reference ran ge: >5.9 ng/mlThe WHO technical consultation on folate and vitamin [id number] has determined that folate concentrations lessthan 4 ng/ml are considered deficient. Globulin Calc (S) [Mass/Vol] Ordered By: Pippa Lane on 05-16-2024 Globulin (S) [Mass/Vol] Serum globulin measurement by calculation (mass/volume) [facility] Glucose [Mass/volume] in Ser um or PlasmaOrdered By: trinidad Lane on 05-16-2024 Glucose [Mass/Vol] Glucose [Mass/volume] in Serum or Plasma 70-100 [facility] Comment on above: ADA recommended refe rence rangeRandom Glucose Reference Range is dependent on time and content of last meal. Glucose of more than 200 mg/dL in a nonstressed, ambulatory subject supports the diagnosis of Diabetes Mellitus. Glucose [Mass/Vol] 80 mg/dL Normal 70-100 [facility] Comment on above: ADA recommended refe rence rangeRandom Glucose Reference Range is dependent on time and content of last meal. Glucose of more than 200 mg/dL in a nonstressed, ambulatory subject supports the diagnosis of Diabetes Mellitus. Result Comment: [place] om Glucose Reference Range is dependent on time and content of last meal. Glucose of more than 200 mg/dL in a nonstressed, ambulatory subject supports the diagnosis of Diabetes Mellitus. ADA recommended reference range Performed By: #### C MP, CBC, [id number], JULIA, FE and TIBC #### [facility] [address] [place] [address] Hematocrit Auto (Bld) [Volum e fraction]Ordered By: Pippa Lane on 05-16-2024 Hematocrit (Bld) [Volume fraction] Hematocrit [Volume Fraction] of Blood by Automated count 34.0-46.4 [facility] Hemoglobin [Mass/volume] in BloodOrdered By: Pippa Lane on 05-16-2024 Hemoglobin (Bld) [Mass/Vol] Hemoglobin [Mass/volume] in Blood 11.8-15.4 [facility] Iron [Mass/volume] in Serum or PlasmaOrdered By: Pippa Lane on 05-16-2024 Iron [Mass/Vol] Iron [Mass/volume] in Serum or Plasma 50-212 [facility] Iron and TIBC Profileon - % Iron Saturation 14.5 % Low 20-50 [facility] Comment on above: Performed By: #### C MP, CBC, [id number], JULIA, FE and TIBC #### [facility] [address] Iron [Mass/Vol] 74 ug/dL Normal 50-212 [facility] Comment on above: Performed By: #### C MP, CBC, [id number], JULIA, FE and TIBC #### [facility] [address] Total Iron Binding Capacity 510 ug/dL High 255-450 [facility] Comment on above: Performed By: #### C MP, CBC, [id number], JULIA, FE and TIBC #### [facility] [address] Transferrin [Mass/Vol] 364 mg/dL High 203-362 [facility] Comment on above: Performed By: #### C MP, CBC, [id number], JULIA, FE and TIBC #### [facility] [address] [place] [address] Leukocytes [#/volume] correc leroy for nucleated erythrocytes in Blood by Automated counOrdered By: Pippa Lane on 05-16-2024 WBC corrected for nucl RBC Auto (Bld) [#/Vol] Leukocytes [#/volume] corrected for nucleated erythrocytes in Blood by Automated coun High 3.8-11.6 [facility] Lymphocytes Auto (Bld) [#/Vo l]Ordered By: Pippa Lane on 05-16-2024 Lymphocytes (Bld) [#/Vol] Lymphocytes [#/volume] in Blood by Automated count 1.00-4.8 [facility] Lymphocytes/100 WBC Auto (Bl d)Ordered By: Pippa Lane on 05-16-2024 Lymphocytes/100 WBC (Bld) Lymphocytes/100 leukocytes in Blood by Automated count . [facility] MCH Auto (RBC) [Entitic mass ]Ordered By: Pippa Lane on 05-16-2024 MCH (RBC) [Entitic mass] MCH [Entitic mass] by Automated count 24.7-34.3 [facility] MCHC Auto (RBC) [Mass/Vol]Or dered By: Pippa Lane on 05-16-2024 MCHC (RBC) [Mass/Vol] MCHC [Mass/volume] by Automated count 32.0-35.0 [facility] MCV Auto (RBC) [Entitic vol] Ordered By: Pippa Lane on 05-16-2024 MCV (RBC) [Entitic vol] MCV [Entitic volume] by Automated count 80-100 [facility] Monocytes Auto (Bld) [#/Vol] Ordered By: Pippa Lane on 05-16-2024 Monocytes (Bld) [#/Vol] Automated blood monocyte count High 0.0-0.8 [facility] Monocytes/100 WBC Auto (Bld) Ordered By: Pippa Lane on 05-16-2024 Monocytes/100 WBC (Bld) Automated monocyte % . [facility] Neutrophils Auto (Bld) [#/Vo l]Ordered By: Pippa Lane on 05-16-2024 Neutrophils (Bld) [#/Vol] Neutrophils [#/volume] in Blood by Automated count High 1.8-7.7 [facility] Neutrophils/100 WBC Auto (Bl d)Ordered By: Pippa Lane on 05-16-2024 Neutrophils/100 WBC (Bld) Automated neutrophil % . [facility] No Panel InformationOrdered By: Pippa Lane on 05-16-2024 Estimated GFR (CKD-EPI) > 60.0 mL/Min [facility] Creatinine Clearance (Chem N/A [facility] Nucleated erythrocytes [Pres ence] in Blood by Automated countOrdered By: Pippa Lane on 05-16-2024 Nucleated RBC Auto Ql (Bld) Nucleated erythrocytes [Presence] in Blood by Automated count 0-0.5 [facility] Platelet mean volume Auto (B ld) [Entitic vol]Ordered By: Pippa Lane on 05-16-2024 Platelet mean volume (Bld) [Entitic vol] Platelet mean volume [Entitic volume] in Blood by Automated count 6.3-10.7 [facility] Platelets Auto (Bld) [#/Vol] Ordered By: Pippa Lane on 05-16-2024 Platelets (Bld) [#/Vol] Platelets [#/volume] in Blood by Automated count 150-450 [facility] Potassium [Moles/volume] in Serum or PlasmaOrdered By: Ppipa Lane on 05-16-2024 Potassium [Moles/Vol] Potassium [Moles/volume] in Serum or Plasma 3.5-5.1 [facility] Potassium [Moles/Vol] 3.8 mmol/L Normal 3.5-5.1 [facility] Comment on above: Performed By: #### C MP, CBC, [id number], JULIA, FE and TIBC #### [facility] [address] Protein [Mass/volume] in Ser um or PlasmaOrdered By: Pippa Lane on 05-16-2024 Protein [Mass/Vol] Protein [Mass/volume] in Serum or Plasma Low 6.4-8.9 [facility] Protein [Mass/Vol] 6.3 g/dL Low 6.4-8.9 [facility] Comment on above: Performed By: #### C MP, CBC, [id number], JULIA, FE and TIBC #### [facility] [address] [place] [address] [place] RBC Auto (Bld) [#/Vol]Ordere d By: Pippa Lane on 05-16-2024 RBC (Bld) [#/Vol] Erythrocytes [#/volume] in Blood by Automated count 3.60-5.00 [facility] Serum globulin measurement b y calculation (mass/volume)Ordered By: Pippa Coyle on 05-16-2024 Globulin (S) [Mass/Vol] 2.6 g/dL Normal [facility] Comment on above: Performed By: #### C MP, CBC, [id number], JULIA, FE and TIBC #### [facility] [address] Serum or plasma albumin/glob ulin mass ratioOrdered By: Pippa Lane on 05-16-2024 Albumin/Globulin [Mass ratio] Serum or plasma albumin/globulin mass ratio [facility] Albumin/Globulin [Mass ratio] 1.4 {ratio} Normal [facility] Comment on above: Performed By: #### C MP, CBC, [id number], JULIA, FE and TIBC #### [facility] [address] Serum or plasma anion gap de terminationOrdered By: Pippa Lane on 05-16-2024 Anion gap [Moles/Vol] Serum or plasma anion gap determination 6.0-15.0 [facility] Anion gap [Moles/Vol] 9.8 mmol/L Normal 6.0-15.0 [facility] Comment on above: Performed By: #### C MP, CBC, [id number], JULIA, FE and TIBC #### [facility] [address] Serum or plasma iron binding capacity measurement (mass/volume)Ordered By: Pippa Lane on 05-16-2024 Iron binding capacity [Mass/Vol] Iron binding capacity [Mass/volume] in Serum or Plasma High 255-450 [facility] Serum or plasma iron saturat ion measurement (mass fraction)Ordered By: Pippa Coyle on 05-16-2024 Iron saturation [Mass fraction] Iron saturation [Mass Fraction] in Serum or Plasma Low 20-50 [facility] Sodium [Moles/volume] in Ser um or PlasmaOrdered By: trinidad Lane on 05-16-2024 Sodium [Moles/Vol] Sodium [Moles/volume] in Serum or Plasma 136-145 [facility] Sodium [Moles/Vol] 138 mmol/L Normal 136-145 [facility] Comment on above: Performed By: #### C MP, CBC, [id number], JULIA, FE and TIBC #### [address] Transferrin [Mass/volume] in Serum or PlasmaOrdered By: [facility] Domingo on 05-16-2024 Transferrin [Mass/Vol] Transferrin [Mass/volume] in Serum or Plasma High 203-362 [facility] Urea nitrogen [Mass/volume] in Serum or PlasmaOrdered By: trinidad Lane on 05-16-2024 Urea nitrogen [Mass/Vol] Urea nitrogen [Mass/volume] in Serum or Plasma 7-25 [facility] Urea nitrogen [Mass/Vol] 7 mg/dL Normal 7-25 [facility] Comment on above: Performed By: #### C MP, CBC, [id number], JULIA, FE and TIBC #### [address] Vit. B12/Folate Profileon Cobalamin (Vitamin B12) [Mass/Vol] 241 pg/mL Normal 180-914 [facility] Comment on above: Performed By: #### C MP, URIC #### [address] Folate 25.0 ng/mL Normal >5.9 [facility] Comment on above: Result Comment: Vanesa te reference range: >5.9 ng/ml The WHO technical consultation on folate and vitamin b12 deficiencies has determined that folate concentrations less than 4 ng/ml are considered deficient. PERFORMED BY: [place] [address] PATHOLOGIST TEACHER OF THE DEAF[employer] FAN GALEAS M.D. Performed By: #### C MP, URIC #### [address] [place] [address] [place] Vitamin B12 ser/plasOrdered By: Pippa Lane on 05-16-2024 Cobalamin (Vitamin B12) [Mass/Vol] Vitamin B12 ser/plas 180-914 [facility] WBC Auto (Bld) [#/Vol]Ordere d By: Pippa Lane on 05-16-2024 WBC (Bld) [#/Vol] Leukocytes [#/volume] in Blood by Automated count High 3.8-11.6 [facility] No Panel Informationon 04-04 Glucose, UA Negative Negative - 1999(110) ++++ mg/dL [facility] Protein, UA Negative Negative - 1999(20) ++++ mg/dL [facility] No Panel Informationon 03-07 Glucose, UA Negative Negative - 1999(110) ++++ mg/dL [facility] Protein, UA Negative Negative - 1999(20) ++++ mg/dL [facility] Basophils Auto (Bld) [#/Vol] Ordered By: Pippa Lane on 02-14-2024 Basophils (Bld) [#/Vol] Automated basophil count 0.0-0.2 [facility] Basophils/100 WBC Auto (Bld) Ordered By: trinidad Lane on 02-14-2024 Basophils/100 WBC (Bld) Automated basophil % . [facility] Complete Blood Count Auto Di ffon 02-14-2024 Basophils (Bld) [#/Vol] 0.1 10*3/uL Normal 0.0-0.2 [facility] Comment on above: Result Comment: PERF ORMED BY: [place] [address] PATHOLOGIST TE[employer] FAN GALEAS M.D. Performed By: #### C MP, URIC #### [address] Basophils/100 WBC (Bld) 0.5 % Normal . [facility] Comment on above: Performed By: #### C MP, URIC #### [place] [id number] [place] Eosinophils (Bld) [#/Vol] 0.1 10*3/uL Normal 0.0-0.45 [facility] Comment on above: Performed By: #### C MP, URIC #### [address] Eosinophils/100 WBC (Bld) 1.0 % Normal . [facility] Comment on above: Performed By: #### C MP, URIC #### [address] Erythrocyte distribution width (RBC) [Ratio] 12.6 % Normal 11.9-15.3 [facility] Comment on above: Performed By: #### C MP, URIC #### [address] Hematocrit (Bld) [Volume fraction] 39.3 % Normal 34.0-46.4 [facility] Comment on above: Performed By: #### C MP, URIC #### [address] Hemoglobin (Bld) [Mass/Vol] 13.3 g/dL Normal 11.8-15.4 [facility] Comment on above: Performed By: #### C MP, URIC #### [address] Lymphocytes (Bld) [#/Vol] 3.5 10*3/uL Normal 1.00-4.8 [facility] Comment on above: Performed By: #### C MP, URIC #### [address] Lymphocytes/100 WBC (Bld) 25.0 % Normal . [facility] Comment on above: Performed By: #### C MP, URIC #### [address] MCH (RBC) [Entitic mass] 29.8 pg Normal 24.7-34.3 [facility] Comment on above: Performed By: #### C MP, URIC #### [address] MCV (RBC) [Entitic vol] 87.8 fL Normal 80-100 [facility] Comment on above: Performed By: #### C MP, URIC #### [address] Mean Corpuscular HGB Conc 33.9 g/dL Normal 32.0-35.0 [facility] Comment on above: Performed By: #### C MP, URIC #### [address] Monocytes (Bld) [#/Vol] 1.1 10*3/uL High 0.0-0.8 [facility] Comment on above: Performed By: #### C MP, URIC #### [address] Monocytes/100 WBC (Bld) 7.7 % Normal . [facility] Comment on above: Performed By: #### C MP, URIC #### [address] Neutrophils (Bld) [#/Vol] 9.2 10*3/uL High 1.8-7.7 [facility] Comment on above: Performed By: #### C MP, URIC #### [address] Neutrophils/100 WBC (Bld) 65.8 % Normal . [facility] Comment on above: Performed By: #### C MP, URIC #### [address] NRBC% 0.1 /100{WBC} Normal 0-0.5 [facility] Comment on above: Performed By: #### C MP, URIC #### [address] Platelet mean volume (Bld) [Entitic vol] 7.3 fL Normal 6.3-10.7 [facility] Comment on above: Performed By: #### C MP, URIC #### [address] Platelets (Bld) [#/Vol] 422 10*3/uL Normal 150-450 [facility] Comment on above: Performed By: #### C MP, URIC #### [facility] [address] [place] [address] RBC (Bld) [#/Vol] 4.47 10*6/uL Normal 3.60-5.00 [facility] Comment on above: Performed By: #### C MP, URIC #### [facility] [address] WBC (Bld) [#/Vol] 14.0 10*3/uL High 3.8-11.6 [facility] Comment on above: Performed By: #### C MP, URIC #### [address] Eosinophils Auto (Bld) [#/Vo l]Ordered By: Pippa Lane on 02-14-2024 Eosinophils (Bld) [#/Vol] Automated eosinophil count 0.0-0.45 [facility] Eosinophils/100 WBC Auto (Bl d)Ordered By: trinidad Lane on 02-14-2024 Eosinophils/100 WBC (Bld) Automated eosinophil % . [facility] Erythrocyte distribution wid th Auto (RBC) [Ratio]Ordered By: Pippa Lane on 02-14-2024 Erythrocyte distribution width (RBC) [Ratio] Erythrocyte distribution width [Ratio] by Automated count 11.9-15.3 [facility] Ferritinon 02-14-2024 Ferritin [Mass/Vol] 52.7 ng/mL Normal 11.0-306.8 [facility] Comment on above: Result Comment: PERF ORMED BY: [place] [address] PATHOLOGIST TE[employer] FAN GALEAS M.D. Performed By: #### C MP, URIC #### [address] Ferritin [Mass/volume] in Se rum or PlasmaOrdered By: Pippa Lane on 02-14-2024 Ferritin [Mass/Vol] Ferritin [Mass/volume] in Serum or Plasma 11.0-306.8 [facility] Hematocrit Auto (Bld) [Volum e fraction]Ordered By: Pippa Lane on 02-14-2024 Hematocrit (Bld) [Volume fraction] Hematocrit [Volume Fraction] of Blood by Automated count 34.0-46.4 [facility] Hemoglobin [Mass/volume] in BloodOrdered By: Pippa Lane on 02-14-2024 Hemoglobin (Bld) [Mass/Vol] Hemoglobin [Mass/volume] in Blood 11.8-15.4 [facility] Iron [Mass/volume] in Serum or PlasmaOrdered By: Pippa Lane on 02-14-2024 Iron [Mass/Vol] Iron [Mass/volume] in Serum or Plasma 50-212 [facility] Iron and TIBC Profileon 01-17-2023 % Iron Saturation 17.1 % Low 20-50 [facility] Comment on above: Performed By: #### C MP, URIC #### [facility] [address] Iron [Mass/Vol] 76 ug/dL Normal 50-212 [facility] Comment on above: Performed By: #### C MP, URIC #### [facility] [address] [place] [address] Total Iron Binding Capacity 445 ug/dL Normal 255-450 [facility] Comment on above: Performed By: #### C MP, URIC #### [facility] [address] [place] [address] [place] Transferrin [Mass/Vol] 318 mg/dL Normal 203-362 [facility] Comment on above: Performed By: #### C MP, URIC #### [facility] [address] [place] [address] [place] Leukocytes [#/volume] correc leroy for nucleated erythrocytes in Blood by Automated counOrdered By: Pippa Lane on 02-14-2024 WBC corrected for nucl RBC Auto (Bld) [#/Vol] Leukocytes [#/volume] corrected for nucleated erythrocytes in Blood by Automated coun High 3.8-11.6 [facility] Lymphocytes Auto (Bld) [#/Vo l]Ordered By: Pippa Laen on 02-14-2024 Lymphocytes (Bld) [#/Vol] Lymphocytes [#/volume] in Blood by Automated count 1.00-4.8 [facility] Lymphocytes/100 WBC Auto (Bl d)Ordered By: Pippa Lane on 02-14-2024 Lymphocytes/100 WBC (Bld) Lymphocytes/100 leukocytes in Blood by Automated count . [facility] MCH Auto (RBC) [Entitic mass ]Ordered By: Pippa Lane on 02-14-2024 MCH (RBC) [Entitic mass] MCH [Entitic mass] by Automated count 24.7-34.3 [facility] MCHC Auto (RBC) [Mass/Vol]Or dered By: Pippa Lane on 02-14-2024 MCHC (RBC) [Mass/Vol] MCHC [Mass/volume] by Automated count 32.0-35.0 [facility] MCV Auto (RBC) [Entitic vol] Ordered By: Pippa Lane on 02-14-2024 MCV (RBC) [Entitic vol] MCV [Entitic volume] by Automated count 80-100 [facility] Monocytes Auto (Bld) [#/Vol] Ordered By: Pippa Lane on 02-14-2024 Monocytes (Bld) [#/Vol] Automated blood monocyte count High 0.0-0.8 [facility] Monocytes/100 WBC Auto (Bld) Ordered By: Pippa Lane on 02-14-2024 Monocytes/100 WBC (Bld) Automated monocyte % . [facility] Neutrophils Auto (Bld) [#/Vo l]Ordered By: Pippa Lane on 02-14-2024 Neutrophils (Bld) [#/Vol] Neutrophils [#/volume] in Blood by Automated count High 1.8-7.7 [facility] Neutrophils/100 WBC Auto (Bl d)Ordered By: Pippa Lane on 02-14-2024 Neutrophils/100 WBC (Bld) Automated neutrophil % . [facility] Nucleated erythrocytes [Pres ence] in Blood by Automated countOrdered By: Pippa Lane on 02-14-2024 Nucleated RBC Auto Ql (Bld) Nucleated erythrocytes [Presence] in Blood by Automated count 0-0.5 [facility] Platelet mean volume Auto (B ld) [Entitic vol]Ordered By: Pippa Lane on 02-14-2024 Platelet mean volume (Bld) [Entitic vol] Platelet mean volume [Entitic volume] in Blood by Automated count 6.3-10.7 [facility] Platelets Auto (Bld) [#/Vol] Ordered By: Pippa Lane on 02-14-2024 Platelets (Bld) [#/Vol] Platelets [#/volume] in Blood by Automated count 150-450 [facility] RBC Auto (Bld) [#/Vol]Ordere d By: Pippa Lane on 02-14-2024 RBC (Bld) [#/Vol] Erythrocytes [#/volume] in Blood by Automated count 3.60-5.00 [facility] Serum or plasma iron binding capacity measurement (mass/volume)Ordered By: Pippa Lane on 02-14-2024 Iron binding capacity [Mass/Vol] Iron binding capacity [Mass/volume] in Serum or Plasma 255-450 [facility] Serum or plasma iron saturat ion measurement (mass fraction)Ordered By: Pippa Coyle on 02-14-2024 Iron saturation [Mass fraction] Iron saturation [Mass Fraction] in Serum or Plasma Low 20-50 [facility] Transferrin [Mass/volume] in Serum or PlasmaOrdered By: Pippa Lane on 02-14-2024 Transferrin [Mass/Vol] Transferrin [Mass/volume] in Serum or Plasma 203-362 [facility] WBC Auto (Bld) [#/Vol]Ordere d By: Pippa Lane on 02-14-2024 WBC (Bld) [#/Vol] Leukocytes [#/volume] in Blood by Automated count High 3.8-11.6 [facility] CNNURSEon 02-01-2024 CNNURSE Nurse Visit (REIAV) DANELLE GUIDO ([id number]) 89 F Date Time Provider Department 02/01/24 10:30 AM US TECH 1 [facility] During your visit today, we recorded the following information about you: Jessica Ortega MD 02/01/2024 10:38 AM Signed Patient is here for ultrasound. Please see image section in Epic for results. MD Min Kelly Lauren, APRN.CNP 02/01/2024 4:57 PM Signed Danelle Guido here today for a scan. This is her 1st scan. 0 1 0 History of ectopic: No, History of SAB: No, History of chemical History of pelvic/abdominal surgeries: No LMP 12/11, natural cycle, LH surge: 12/24 Latest Ref Rng 12/13/2023 01/18/2024 ABO A Rh(D) Positive Antibody Screen Negative Type+Scr Expiration 12/16/2023 23:59 Rubella IgG, Qual Positive Positive Varicella Zoster IgG, Qual Positive Positive hCG Quantitative, Blood <5.0 mIU/mL 4,528.0 (H) Dating LMP on: 12/12/2023 GA by LMP 7 w + 2 d TORRES by LMP: 09/17/2024 Ultrasound examination on: 02/01/2024 GA by U/S based upon: CRL GA by U/S 7 w + 3 d TORRES by U/S: 09/16/2024 Assigned: based on the LMP, selected on 02/01/2024 Assigned GA 7 w + 2 d Assigned TORRES: 09/17/2024 FHR 145 Plan Move on to OB Ynes Chang APRN.CNP February 01, 2024 4:55 PM Referring Provider: SARA CAMPBELL [[id number]] Allergies As of Date: 02/01/2024 (No Known Allergies) Date Reviewed: 01/21/2024 Reviewed by: Sara Campbell APRN.CNP - Fully Assessed Visit Diagnosis:Early stage of [Z34.90] Order(s):OBSTETRIC ULTRASOUND [facility]I [[id number]] Order #: [id number]. #:[id number] VIEWPOINTQty: 1 Prescriptions as of 02/01/2024 - ferrous sulfate (IRON) 325 mg (65 mg iron) tablet Take 1 tablet by mouth two times a day. - Bsxzxksx-Bx-Gbm-Fe-F A tab Take 1 tablet by mouth once daily. - metFORMIN (GLUCOPHAGE) 500 mg tablet One tablet three times daily with meals. - sertraline (ZOLOFT) 25 mg tablet Take 25 mg by mouth. Problem List As Of Date 02/01/2024 Noted Resolved Obesity, Class I, BMI 30-34.9 [E66.811] 12/14/2023 Encounter Status:Closed by JESSICA FELIZ on 02/01/24 Normal [facility] B-HCG SerPl-aCncon 4 HCG.beta subunit Qn 4528.0 m[IU]/mL High <5.0 [facility] Comment on above: Order Comment: Speci men Type: BLOOD SPECIMENOrdering Facility: [facility] Address: [address] [place] [address] Result Comment: KAYLIN TITATIVE HCG NORMAL RANGES Weeks of Gestation (Weeks Since LMP) 3 Weeks (5.8-71.2 mIU/mL) 4 Weeks (9.5-750 mIU/mL) 5 Weeks (217-7138 mIU/mL) 6 Weeks (158-43962 mIU/mL) 7 Weeks (3697-581468 mIU/mL) 8 Weeks (30541-629800 mIU/mL) 9 Weeks (76901-592743 mIU/mL) 10 Weeks (82107-428952 mIU/mL) 12 Weeks (04493-497046 mIU/mL) Referenced to [facility]th [facility] Performed By: #### 2 1198-7 ####[facility] LABCLIA [id number] [facility] [id number] [place] [address] [place] US Uterus and Fallopian tube s W saline IUon 12-22-2023 Indication fertility testing Impression Normal appearing anteverted uterus that measures 73 mm x 28 mm x 43 mm. Saline infusion sonohysterogram demonstrated a normal appearing endometrial cavity. The details of these findings are described in the procedure section below. Both ovaries are visualized and appear normal. No adnexal masses were observed. There is no free fluid visualized in the peritoneal cavity. Recommendations Follow up as clinically indicated. Menstrual History LMP on 12/12/2023. Day of cycle 10. Contraception: none Method Transvaginal, 3D ultrasound examination, Color Doppler examination, Saline Infusion Sonohysterogram Uterus Uterus: Visualized Uterus position: anteverted Description of uterine malformations: none Myometrium: normal Endometrium: three-layer pattern Uterus length 73 mm Uterus width 43 mm Uterus height 28 mm Uterus Vol 45.5 cm Endometrial thickness single layer 1.5 mm Endom. th. single layer 1.6 mm Side: anterior Side: posterior Endometrial thickness, total 3.1 mm Right Ovary Rt ovary: Visualized Rt ovary morphology: premenopausal normal follicular Rt ovary D1 34 mm Rt ovary D2 26 mm Rt ovary D3 23 mm Rt ovary mean 27.4 mm Rt ovary Vol 10.4 cm Rt ovarian follicle D1 15.5 mm Rt ovarian follicle D2 12.0 mm Rt ovarian follicle mean 13.8 mm Rt ovarian follicle vol 1.172 cm Left Ovary Lt ovary: Visualized Lt ovary morphology: premenopausal normal follicular Lt ovary D1 32 mm Lt ovary D2 16 mm Lt ovary D3 17 mm Lt ovary Vol 4.6 cm Lt ovarian corpus luteum: hemorrhagic Lt ovarian corpus luteum D1 12.0 mm Lt ovarian corpus luteum D2 10.0 mm Lt ovarian corpus luteum D3 12.0 mm Cul de Sac Visualized. no free fluid visualized Procedure Saline infused ultrasound was performed and shows that the endometrial cavity is normal in size and contour. No focal endometrial thickening, endometrial polyps or sub mucosal fibroids are observed. The anterior single layer endometrial thickness measures 1.5 mm and the posterior single layer endometrial thickness measures 1.6 mm. Performed By: Fawn Parrish RDMS Read By: Jessica Ortega M.D. MATERNAL MEDICINE [facility] 25(OH)D3 [facility] 25-hydroxyvitamin D3 [Mass/Vol] 28.2 ng/mL Low 31.0-80.0 [facility] Comment on above: Order Comment: Speci men Type: BLOOD SPECIMENOrdering Facility: [facility] Address: [address] [place] [address] Result Comment: Clas sification of 25 [place] Vitamin D status: Deficiency/Insufficiency: < or = 30 ng/ml. Sufficiency/Optimal Levels: 31-80 ng/mL Toxicity: > 100 ng/mL. Test performed by chemiluminescent immunoassay. Performed By: #### 1 989-3 ####[facility] LABCLIA [id number] [facility] [id number] OF [facility] CNOVon 12-21-2023 CNOV Office Visit (REIBD) DANELLE GUIDO ([id number]) 89 F Date Time Provider Department 12/21/23 10:45 AM JESSICA ORTEGA During your visit today, we recorded the following information about you: Weight Height Last Period 80.7 kg 1.6 m 12/12/23 Sara Campbell APRN.CNP 12/23/2023 7:30 AM Signed Danelle Brown Guido is a 23 year old here for SIS. Referred by: Barbara Matos [facility] [place] [address] Chief Complaint: SIS LMP: Patient's last menstrual period was 12/12/2023. HCG: negative UNIVERSAL PROTOCOL / SAFETY CHECKLIST Procedure to be Performed: SIS Sign In: A Moment of CARE was completed. Personnel directly involved with the procedure wore the appropriate PPE (Personal Protective Equipment). Patient/Surrogate Stated/Verified: PATIENT VERIFIED(optional for EMERGENT procedures): Patient name, Date of , Relevant allergies, and The intended procedure Time Out Communication: Intended patient and procedure match the source documents. Consent documented and matches the intended procedure. Sign Out: SIGN OUT (optional for EMERGENT procedures): No specimen collected. All instruments, equipment, possible retained foreign bodies accounted for. Sara G Adrian, 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 JOCKEY PROCEDURE: EXTERNAL GENITALIA: Normal in appearance without lesions VAGINA: Normal in appearance without lesions Speculum placed into the vagina with excellent visualization of the cervix. Cervix cleaned with hibiclens. SIS catheter inserted into the uterus without difficulty. Speculum removed and 15mL sterile saline injected into the uterine cavity under ultrasound guidance. Procedure Summary: Patient tolerated procedure well. See ViewPoint for procedure results. MD Burke Kelly Julierut, MD 12/23/2023 7:30 AM Signed Patient is here for ultrasound. Please see image section in Epic for results. Julianne River MD Referring Provider: BARBARA MATOS [[id number]] Allergies As of Date: 12/21/2023 (No Known Allergies) Date Reviewed: 12/21/2023 Reviewed by: Tessa Koch MA - Fully Assessed Reason for Visit: SIS [Other] Primary Visit Diagnosis:Fertility testing [Z31.41] Other Visit Diagnosis:Pre-proced ural laboratory examination [Z01.812] Order(s):SONOHYSTERO GRAPHY (SIS) [facility] [[id number]] Order #: [id number]. #:[id number] VIEWPOINTQty: 1 HCG QUAL UR B/O [[id number]] Order #: [id number] Prescriptions as of 12/23/2023 - metFORMIN (GLUCOPHAGE) 500 mg tablet One tablet three times daily with meals. - sertraline (ZOLOFT) 25 mg tablet Take 25 mg by mouth. Problem List As Of Date 12/21/2023 Noted Resolved Obesity, Class I, BMI 30-34.9 [E66.811] 12/14/2023 Encounter Status:Closed by JESSICA FELIZ on 12/23/23 Normal [facility] HCG QUAL UR B/OOrdered By: Geoffrey Koch on 12-21-2023 status Negative neg - pos [facility] Quality Check Yes yes/no [facility] TSH SerPl-aCncon 12-21-2023 TSH Qn 1.060 m[IU]/L Normal 0.270-4.200 [facility] Comment on above: Order Comment: Speci men Type: BLOOD SPECIMENOrdering Facility: [facility] Address: [address] [place] [address] Result Comment: If t he patient is , TSH reference range varies by gestational period: First Trimester (weeks 9-12): 0.180-2.990 mIU/L Second Trimester: 0.110-3.980 mIU/L Third Trimester: 0.480-4.710 mIU/L Sidney Peralta et al. A Practical Approach for the Verifications and Determination of Site- and Trimester-Specific Reference Intervals for Thyroid Function tests in . Thyroid, 2019:29:3:412-420. Vincenzo Roblero, et al. 2017 Guidelines of the [place] Thy[employer] for the Diagnosis and Management of Thyroid Disease during and the . Thyroid, 2017:27:3:315-389. Performed By: #### 3 016-3 ####[facility] LABIA [id number] [place] [address] [place] US Uterus and Fallopian tube s W saline IUon 12-21-2023 Radiology Study observation (narrative) [facility] WHIIVF ANTI MULLERIAN HORMON Casa 12-21-2023 Mullerian inhibiting substance [Mass/Vol] 5.33 ng/mL Normal 1.22-11.70 [facility] Comment on above: Order Comment: Speci men Type: BLOOD SPECIMENOrdering Facility: [facility] Address: [address] [place] [address] Performed By: #### S QAMHIVF ####[facility] LABIA [id number] [place] [id number] [place] [id number] 12-14-2023 HNO ID: [id number] Author: MARINA ARTHUR MD Service: ? Author Type: Physician Type: Filed: 12/14/2023 08:59 Note Text: Summary: IUI Treatment Plan: IUI #1 DANIEL IUI Treatment Plan: Tubal Patency Testing: HSG date: 2023 within normal limits Sperm Source:Partner Fresh Treatment Protocol: Letrozole dose 2.5 mg CD 2-6 Monitoring Plan: Ultrasound monitoring CD 10-12 Ovidrel Trigger: Yes Supplemental Progesterone: None Comments: None Marina Arthur MD 12/14/2023 Normal [facility] C. trachomatis+N. gonorrhoea e DNA JEFF+probe Ql (Unsp spec)on 12-14-2023 C. trachomatis rRNA JEFF+probe Ql (Unsp spec) Negative Negative for Chlamydia trachomatis by amplificaton [facility] Interpretation and review of laboratory results Normal [facility] N. gonorrhoeae rRNA JEFF+probe Ql (Unsp spec) Negative Negative for Neisseria gonorrhoeae by amplification [facility] For screening asymptomatic women, a vaginal swab specimen(APTIMA vaginal swab [id number]) is optimal. Urine specimens have reduced sensitivity for Chlamydia trachomatis or Neisseria gonorrhoeae infection in female patients without symptoms. [facility] HBV core Ab Ql (S)on 024 Interpretation and review of laboratory results Normal [facility] HBV surface Ag Ql (S)on 11-16 Interpretation and review of laboratory results Normal [facility] HCV Ab Ql (S)on 12-14-2023 Interpretation and review of laboratory results Normal [facility] HEPATITIS B CORE ANTIBODY TO Jennifer 12-14-2023 HBV core Ab Ql (S) Negative Negative [facility] Comment on above: No evidence of curre nt or past infection with Hepatitis B virus. Should recent infection be suspected, repeat testing may be considered 3-4 weeks after this draw. HEPATITIS B SURFACE ANTIGENo n 12-14-2023 HBV surface Ag Ql (S) Negative Negative [facility] HEPATITIS C ANTIBODY IA WITH CONFIRMATIONon 12-14-2023 HCV Ab Ql (S) Negative Negative [facility] Comment on above: The result suggests no evidence of active infection with Hepatitis C virus. Should recent infection be suspected, repeat testing may be considered 4-6 weeks after this draw. HIV 1+2 Ab IA Qlon HIV 1 and 2 Ab IA.rapid Nom (S/P/Bld) [facility] Comment on above: Test not indicated. HIV 1+2 Ab+HIV1 p24 Ag IA Ql Non-Reactive Nonreactive [facility] HIV immunoassay testing algorithm interpretation (S/P/Bld) [Interp] [facility] Comment on above: No evidence of HIV-1 or HIV-2 infection. Should recent infection be suspected, repeat testing may be considered 2-3 weeks after this draw. [place] Rev. Code 3701.243(E): This information has been [...] release of HIV test results or diagnoses. [facility] HbA1c (Bld)on 12-14-2023 Average glucose Estimated from glycated hemoglobin (Bld) [Mass/Vol] 105 mg/dL [facility] Comment on above: eAG: (Estimated aver age glucose) is a calculated value from HgbA1c and is indirect sales representative of the average blood glucose level in the last 2-3 month period. HbA1c (Bld) [Mass fraction] 5.3 % 4.3 - 5.6 % [facility] Comment on above: [place] Diabetes As sociation guidelines indicate that patients with HgbA1c in the range 5.7-6.4% are at increased risk for development of diabetes, and intervention by lifestyle modification may be beneficial. HgbA1c greater or equal to 6.5% is considered diagnostic of diabetes. [facility] Reagin and Treponema pallidu m IgG and IgM [Interp]on 12-14-2023 T. pallidum IgG+IgM IA Ql (S) Non-Reactive Nonreactive [facility] SYPHILIS TREPONEMAL W/REFLEX on 12-14-2023 Reagin and Treponema pallidum IgG and IgM [Interp] Cannot exclude recent Treponemal infection if specimen collected within 7-10 days after appearance of suspect lesions or 2-3 weeks after an exposure. Clinical correlation is required. [facility] C. trachomatis+N. gonorrhoea e DNA JEFF+probe Ql (Unsp spec)on 12-13-2023 C. trachomatis rRNA JEFF+probe Ql (Unsp spec) Negative Normal Negative for Chlamydia trachomatis by amplificaton [facility] Comment on above: Order Comment: Speci men Type: URINE SPECIMENOrdering Facility: [facility] Address: [address] [place] [address] Performed By: #### 3 6902-5 ####[facility] LABCLIA [id number] [place] [address] [place] N. gonorrhoeae rRNA JEFF+probe Ql (Unsp spec) Negative Normal Negative for Neisseria gonorrhoeae by amplification [facility] Comment on above: Order Comment: Speci men Type: URINE SPECIMENOrdering Facility: [facility] Address: [address] [place] [address] Performed By: #### 3 6902-5 ####[facility] LABCLIA [id number] [place] [address] [place] CARRIER SCREEN, EXPANDEDon 1 CARRIER SCREEN RESULTS View results in Scanned Documents link when available. Normal [facility] Comment on above: Order Comment: Speci men Type: BLOOD SPECIMENOrdering Facility: [facility] Address: [address] [place] [address] Performed By: #### C RSNEX ####MYRIADCLIA [id number] [place] [address] CBC panel Auto (Bld)on 12-12 Erythrocyte distribution width (RBC) [Ratio] 12.2 % 11.5 - 15.0 % [facility] Hematocrit (Bld) [Volume fraction] 40.3 % 36.0 - 46.0 % [facility] Hemoglobin (Bld) [Mass/Vol] 13.6 g/dL 11.5 - 15.5 g/dL [facility] Interpretation and review of laboratory results Abnormal [facility] MCH (RBC) [Entitic mass] 29.8 pg 26.0 - 34.0 pg [facility] MCHC (RBC) [Mass/Vol] 33.7 g/dL 30.5 - 36.0 g/dL [facility] MCV (RBC) [Entitic vol] 88.2 fL 80.0 - 100.0 fL [facility] Nucleated RBC (Bld) [#/Vol] NINF [facility] Platelet mean volume (Bld) [Entitic vol] 8.9 fL Low 9.0 - 12.7 fL [facility] Platelets (Bld) [#/Vol] 410 10*3/uL High [facility] RBC (Bld) [#/Vol] 4.57 10*6/uL 3.90 - 5.2 0 m/uL [facility] WBC (Bld) [#/Vol] 10.63 10*3/uL [facility] Erythrocyte distribution width (RBC) [Ratio] 12.2 % Normal 11.5-15.0 [facility] Comment on above: Order Comment: Speci men Type: BLOOD SPECIMENOrdering Facility: [facility] Address: [address] [place] [address] Performed By: #### 5 8410-2 ####[facility] LABCLIA [id number] [place] [address] [place] Hematocrit (Bld) [Volume fraction] 40.3 % Normal 36.0-46.0 [facility] Comment on above: Order Comment: Speci men Type: BLOOD SPECIMENOrdering Facility: [facility] Address: [address] [place] [address] Performed By: #### 5 8410-2 ####[facility] LABCLIA [id number] [place] [id number] [place] Hemoglobin (Bld) [Mass/Vol] 13.6 g/dL Normal 11.5-15.5 [facility] Comment on above: Order Comment: Speci men Type: BLOOD SPECIMENOrdering Facility: [facility] Address: [address] [place] [address] Performed By: #### 5 8410-2 ####[facility] LABCLIA [id number] [place] [id number] [place] MCH (RBC) [Entitic mass] 29.8 pg Normal 26.0-34.0 [facility] Comment on above: Order Comment: Speci men Type: BLOOD SPECIMENOrdering Facility: [facility] Address: [address] [place] [address] Performed By: #### 5 8410-2 ####[facility] LABCLIA [id number] [place] [id number] [place] MCHC (RBC) [Mass/Vol] 33.7 g/dL Normal 30.5-36.0 [facility] Comment on above: Order Comment: Speci men Type: BLOOD SPECIMENOrdering Facility: [facility] Address: [address] [place] [address] Performed By: #### 5 8410-2 ####[facility] LABIA [id number] [place] [id number] [place] MCV (RBC) [Entitic vol] 88.2 fL Normal 80.0-100.0 [facility] Comment on above: Order Comment: Speci men Type: BLOOD SPECIMENOrdering Facility: [facility] Address: [address] [place] [address] Performed By: #### 5 8410-2 ####[facility] LABIA [id number] [place] [id number] [place] Nucleated RBC (Bld) [#/Vol] 10*3/uL Normal <0.01 [facility] Comment on above: Order Comment: Speci men Type: BLOOD SPECIMENOrdering Facility: [facility] Address: [address] [place] [address] Performed By: #### 5 8410-2 ####[facility] LABIA [id number] [place] [id number] [place] Platelet mean volume (Bld) [Entitic vol] 8.9 fL Low 9.0-12.7 [facility] Comment on above: Order Comment: Speci men Type: BLOOD SPECIMENOrdering Facility: [facility] Address: [address] [place] [address] Performed By: #### 5 8410-2 ####[facility] LABCLIA [id number] [place] [id number] [facility] Platelets (Bld) [#/Vol] 410 10*3/uL High 150-400 [facility] Comment on above: Order Comment: Speci men Type: BLOOD SPECIMENOrdering Facility: [facility] Address: [address] [place] [address] Performed By: #### 5 8410-2 ####[facility] LABIA [id number] [address] RBC (Bld) [#/Vol] 4.57 10*6/uL Normal 3.90-5.20 [facility] Comment on above: Order Comment: Speci men Type: BLOOD SPECIMENOrdering Facility: [facility] Address: [address] [place] [address] Performed By: #### 5 8410-2 ####[facility] LABIA [id number] [place] [id number] [facility] WBC (Bld) [#/Vol] 10.63 10*3/uL Normal 3.70-11.00 [facility] Comment on above: Order Comment: Speci men Type: BLOOD SPECIMENOrdering Facility: [facility] Address: [address] [place] [address] Performed By: #### 5 8410-2 ####[facility] LABCLIA [id number] [place] [id number] [facility] CNOVon 12-13-2023 CNOV Office Visit (REIBD) DANELLE GUIDO ([id number]) 89 F Date Time Provider Department 12/13/23 1:45 PM MARINA ARTHUR During your visit today, we recorded the following information about you: Blood pressure Weight Height 139/95 82.2 kg 1.607 m Marina Arthur MD 12/14/2023 8:59 AM Signed [facility] NEW PATIENT CLINIC NOTE REFERRED BY: Consultation requested by Dr. Patel for an opinion regarding infertility. My final recommendations will be communicated back to the requesting physician by way of shared Medical record or letter to requesting physician via US mail. Subjective: Patient ID: Danelle Guido is a 23 year old female with a chief complaint of infertility. HPI She is kindly referred by Dr. Patel. She is a very pleasant 23 year old white woman, a , who presents for consultation for infertility. Seen with her for new patient infertility consultation. They have been for 4.5 years. Actively trying to conceive x 1 year but not preventing /off control x 2.5 years. Goal family size of 3 children. Initially told she has polycystic ovary syndrome (PCOS) approximately 2 years ago when she developed unilateral pain and was found to have hemorrhagic cyst on L ovary; repeat US showed polycystic morphology of ovaries. However she does not recall having labs that showed elevated testosterone and denies clinical signs of hyperandrogenism. Reports regular predictable cycles, q32 days or so. +OPKs with surge CD17-20. Does have hx pre-diabetes, taking metformin 500 TID with normal A1c recently. Mom has hx PCOS. Sought initial evaluation for fertility with turnaround planner in [place]. Had HSG done a few months ago, told normal. No recent ultrasound done. had semen analysis that was within normal limits. Biochemical x1 in 05/2023. Has done 5 cycles of clomid/+OPK/TIC. 50 x 4 cycles -> 100. Past Medical History: PAST MEDICAL HISTORY Diagnosis Date Anemia Female infertility Insulin resistance Past Surgical History: History reviewed. No pertinent surgical history. OB History: 06/2023 Biochemical [employer] History: Menstrual cycle pattern: Regular periods (25-34 days in length) Cycle length (days): 28-31 Days of bleedin-8 OPK use: Yes, able to detect Dysmenorrhea: Rarely Dyspareunia: No STI history: None Last Pap Smear Date: 09/15/22 Last pap outcome: Normal History of abnormal PAP: No, all prior PAP smears have been normal Procedure for abnormal pap smear: Colposcopy History of abnormal mammogram: No Prior chemotherapy or radiation: No Allergies: No Known Allergies Medications: Current Outpatient Medications Medication Sig Dispense Refill metFORMIN (GLUCOPHAGE) 500 mg tablet One tablet three times daily with meals. sertraline (ZOLOFT) 25 mg tablet Take 25 mg by mouth. No current facility-administere d medications for this visit. Family History: family history includes Colon Cancer in her paternal grandfather. 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 Male Partner History: Partner Information * If Partner is female, check box for associated questions.: No Partner's Name: Jerry Guido Partner's : 99 Partner's Partner's Ethnicity: Partner's Race: Legally ?: Yes Do they have children together?: No Any other Previous Pregnancies?: Yes Date of last : 06/2023 Number of cigarettes smoked daily: None Marijuana use: No Number of alcoholic beverages: 5-10per week Medications: none Pertinent Medical Hx: none Pertinent Surgical Hx: none Pertinent Genetic Hx: none Fathered children prior relationship: No Partner has had: Semen analysis Partner had fever in the last 4 months: No Partner has [facility] medical chart: Yes Partner had prior fertility testing or treatment elsewhere: No Basic Semen Analysis: Component Ref Range AND Units 3 wk ago Date of Analysis 11.17.23 Semen Volume >=1.50 mL 2.90 pH, Semen >=7.2 7.6 Color, Semen Jeffers Opalescent Semen Viscosity Normal Sperm Concentration >=15.00 M/mL 177.50 Total Sperm Count M 514.75 % Motile Sperm (%AR + %SANDFILL OPERATOR SURFACE) >=40 % 82 Forward Progression 4 = Rapid unidirectional Total Motile Sperm M 422.10 % Normal Forms, WHO (5th ed.) >=4 % 4 Undiff Round Cells <1.00 M/mL 0.90 Abstinence Time Days 4.0 Collection Time 1245 Receipt Time 1336 Time to Analysis 0 - 60 Minutes 55 Semen Comment 2 Makler chamber used. Moderate sperm agglutination seen. Mild debris seen. Genetic Screening: Neither patient nor partner have seen a genetic counselor for any reason. They are not related by blood. There is no family history of Down syndrome or any other chromosomal abnormality. No family history of the following: mental retardation, learni (more content not included)... Normal [facility] HBV core Ab Ser Qlon 024 HBV core Ab Ql (S) Negative Normal Negative [facility] Comment on above: Order Comment: Speci men Type: BLOOD SPECIMENOrdering Facility: [facility] Address: [address] [place] [address] Result Comment: No e vidence of current or past infection with Hepatitis B virus. Should recent infection be suspected, repeat testing may be considered 3-4 weeks after this draw. Performed By: #### 1 6933-4, 5195-3, 97539-0, 78844-2 ####[facility] LABIA [id number] [place] [address] [place] HBV surface Ag Ser Qlon 11-16 HBV surface Ag Ql (S) Negative Normal Negative [facility] Comment on above: Order Comment: Speci men Type: BLOOD SPECIMENOrdering Facility: [facility] Address: [address] [place] [address] Performed By: #### 1 6933-4, 5195-3, 55922-4, 89269-5 ####[facility] [id number] [place] [address] [place] HCV Ab Ser Qlon 12-13-2023 HCV Ab Ql (S) Negative Normal Negative [facility] Comment on above: Order Comment: Speci men Type: BLOOD SPECIMENOrdering Facility: [facility] Address: [address] [place] [address] Result Comment: The result suggests no evidence of active infection with Hepatitis C virus. Should recent infection be suspected, repeat testing may be considered 4-6 weeks after this draw. Performed By: #### 1 6128-1 ####[facility] LABCLIA [id number] [place] [address] [place] HIV 1+2 Ab IA Qlon 4 HIV 1 and 2 Ab IA.rapid Nom (S/P/Bld) Normal [facility] Comment on above: Order Comment: Speci men Type: BLOOD SPECIMENOrdering Facility: [facility] Address: [address] [place] [address] Result Comment: Test not indicated. Performed By: #### 1 6933-4, 5195-3, 01895-0, 81105-0 ####[facility] LABIA [id number] [place] [address] [place] HIV 1+2 Ab+HIV1 p24 Ag IA Ql Non-Reactive Normal Nonreactive [facility] Comment on above: Order Comment: Speci men Type: BLOOD SPECIMENOrdering Facility: [facility] Address: [address] [place] [address] Performed By: #### 1 6933-4, 5195-3, 07682-6, 74104-9 ####[facility] LABIA [id number] [place] [address] [place] HIV immunoassay testing algorithm interpretation (S/P/Bld) [Interp] Normal [facility] Comment on above: Order Comment: Speci men Type: BLOOD SPECIMENOrdering Facility: [facility] Address: [address] [place] [address] Result Comment: No e vidence of HIV-1 or HIV-2 infection. Should recent infection be suspected, repeat testing may be considered 2-3 weeks after this draw. [place] Rev. Code 3701.243(E): This information has been disclosed to you from confidential records protected from disclosure by state law. ???You shall make no further disclosure of this information without the specific, written, and informed release of the individual to whom it pertains or as otherwise permitted by state law. A general authorization for the release of medical or other information is not sufficient for the purpose of the release of HIV test results or diagnoses. Performed By: #### 1 6933-4, 5195-3, 44519-1, 26655-3 ####[facility] LABIA [id number] [address] OF [facility] HbA1c (Bld)on 12-13-2023 Average glucose Estimated from glycated hemoglobin (Bld) [Mass/Vol] 105 mg/dL Normal [facility] Comment on above: Order Comment: Speci men Type: BLOOD SPECIMENOrdering Facility: [facility] Address: [address] [place] [address] Result Comment: eAG: (Estimated average glucose) is a calculated value from HgbA1c and is indirect sales representative of the average blood glucose level in the last 2-3 month period. Performed By: #### 5 5454-3 ####[facility] [id number] [address] HbA1c (Bld) [Mass fraction] 5.3 % Normal 4.3-5.6 [facility] Comment on above: Order Comment: Julioi ryan Type: BLOOD SPECIMENOrdering Facility: [facility] Address: [address] [place] [address] Result Comment: [place] Diabetes Association guidelines indicate that patients with HgbA1c in the range 5.7-6.4% are at increased risk for development of diabetes, and intervention by lifestyle modification may be beneficial. HgbA1c greater or equal to 6.5% is considered diagnostic of diabetes. Performed By: #### 5 5454-3 ####[facility] LABIA [id number] [address] [place] RUBELLA IGG ANTIBODYon 12-12 RUBELLA IGG AB, QUAL Positive Normal Positive [facility] Comment on above: Order Comment: Varun davis Type: BLOOD SPECIMENOrdering Facility: [facility] Address: [address] [place] [address] Result Comment: The result suggests recent or past exposure to Rubella virus or history of Rubella vaccination. Positive result may also be seen due to presence of passively-transferred antibodies. Please correlate with patient's history. Performed By: #### V ZVG2, RUBRADHAG ####[facility] LABCLIA [id number] [place] [address] [place] Reagin and Treponema pallidu m IgG and IgM [Interp]on 12-13-2023 T. pallidum IgG+IgM IA Ql (S) Non-Reactive Normal Nonreactive [facility] Comment on above: Order Comment: Speci men Type: BLOOD SPECIMENOrdering Facility: [facility] Address: [address] [place] [address] Performed By: #### 1 6933-4, 5195-3, 79012-3, 24539-8 ####[facility] LABCLIA [id number] [place] [address] [place] Reagin+T pallidum IgG+IgM Se rPl-Impon 12-13-2023 Reagin and Treponema pallidum IgG and IgM [Interp] Cannot exclude recent Treponemal infection if specimen collected within 7-10 days after appearance of suspect lesions or 2-3 weeks after an exposure. Clinical correlation is required. Normal [facility] Comment on above: Order Comment: Speci men Type: BLOOD SPECIMENOrdering Facility: [facility] Address: [address] [place] [address] Performed By: #### 1 6933-4, 5195-3, 56394-8, 50089-1 ####[facility] LABCLIA [id number] [place] [address] [place] TYPE + SCREENon 12-13-2023 ABO A Normal [facility] Comment on above: Order Comment: Speci men Type: BLOOD SPECIMENOrdering Facility: [facility] Address: [address] [place] [address] Performed By: #### T SCR ####[facility] BLO[facility] BANKCLIA [id number] [place] [address] [place] Rh Nom (Bld) Positive Normal [facility] Comment on above: Order Comment: Speci men Type: BLOOD SPECIMENOrdering Facility: [facility] Address: [address] [place] [address] Performed By: #### T SCR ####[facility] BLO[facility] BANKCLIA [id number] [address] STATES OF [facility] TYPE AND SCREEN EXPIRATION 12/16/2023 23:59 Normal [facility] Comment on above: Order Comment: Speci men Type: BLOOD SPECIMENOrdering Facility: [facility] Address: [address] [place] [address] Performed By: #### T SCR ####[facility] BLOOD BANKCLIA [id number] [place] [address] [place] ABO group Nom (Bld) A [facility] Blood group antibody screen Ql Negative [facility] Rh Nom (Bld) Positive [facility] Type and Screen Expiration 12/16/2023 23:59 [facility] VARICELLA ZOSTER IGGon 12-12 VARICELLA ZOSTER IGG, QUAL Positive Normal Positive [facility] Comment on above: Order Comment: Speci men Type: BLOOD SPECIMENOrdering Facility: [facility] Address: [address] [place] [address] Result Comment: The result suggests recent or past exposure to Varicella-Zoster virus or chickenpox vaccination or zoster vaccination. Positive result may also be seen due to presence of passively-transferred antibodies. Please correlate with patient's history. Performed By: #### V ZSHU DOZIER ####[facility] LABCLIA [id number] [place] [address] [place] Progesteroneon 11-01-2023 Progesterone 14.3 ng/mL Normal . [facility] Comment on above: Result Comment: Foll icular phase 0.1 - 0.9 Luteal phase 1.8 - 23.9 Ovulation phase 0.1 - 12.0 First trimester 11.0 - 44.3 Second trimester 25.4 - 83.3 Third trimester 58.7 - 214.0 Postmenopausal 0.0 - 0.1 Performed at: [facility] [id number] Field Sampling Technician: Harsha Villanueva PhD, Phone: [phone] PERFORMED BY: [place] [address] PATHOLOGIST TEACHER OF THE DEAF/HARD OF HEARING EVA NOGUEIRA M.D. Performed By: #### C MP, URIC #### [address] Bacteria [Presence] in Urine by AutomatedOrdered By: Alok Sandhu on 09-27-2023 Bacteria Auto Ql (U) Rare [HPF] None Seen [facility] Basophils Auto (Bld) [#/Vol] Ordered By: Alok Sandhu on 09-27-2023 Basophils (Bld) [#/Vol] 0.1 10*3/uL 0.0-0.2 [facility] Basophils/100 WBC Auto (Bld) Ordered By: Alok Sandhu on 09-27-2023 Basophils/100 WBC (Bld) 0.8 % . [facility] Bilirubin Test strip Ql (U)O rdered By: Alok Sandhu on 09-27-2023 Bilirubin Ql (U) Negative Negative [facility] C reactive protein [Mass/vol ume] in Serum or PlasmaOrdered By: Alok Sandhu on 09-27-2023 CRP [Mass/Vol] < 0.5 mg/dL 0.0-0.5 [facility] Color Auto (U)Ordered By: Ying Sandhu on 09-27-2023 Color (U) Light-yellow Yellow [facility] Creatinine [Mass/volume] in Serum or PlasmaOrdered By: Alok Sandhu on 09-27-2023 Creatinine [Mass/Vol] 0.77 mg/dL 0.60-1.20 [facility] Eosinophils Auto (Bld) [#/Vo l]Ordered By: Alok Sandhu on 09-27-2023 Eosinophils (Bld) [#/Vol] 0.2 10*3/uL 0.0-0.45 [facility] Eosinophils/100 WBC Auto (Bl d)Ordered By: Alok Sandhu on 09-27-2023 Eosinophils/100 WBC (Bld) 2.0 % . [facility] Epithelial cells.squamous [# /area] in Urine sediment by Automated countOrdered By: Alok Sandhu on 09-27-2023 Epithelial cells.squamous Auto (Urine sed) [#/Area] 3-4 [HPF] High 0-2 [facility] Erythrocyte distribution wid th Auto (RBC) [Ratio]Ordered By: Alok Sandhu on 09-27-2023 Erythrocyte distribution width (RBC) [Ratio] 12.5 % 11.9-15.3 [facility] Erythrocyte sedimentation ra te by Photometric methodOrdered By: Alok Sandhu on 09-27-2023 ESR Photometric method (Bld) [Velocity] 10 mm/hr 0-19 [facility] Erythrocytes [#/area] in Uri ne sediment by Automated countOrdered By: Alok Sandhu on 09-27-2023 RBC Auto (Urine sed) [#/Area] 1-2 [HPF] 0-4 [facility] Glucose [Mass/volume] in Uri ne by Test stripOrdered By: Alok Sandhu on 09-27-2023 Glucose Test strip (U) [Mass/Vol] Normal mg/dL Normal [facility] Hematocrit Auto (Bld) [Volum e fraction]Ordered By: Alok Sandhu on 09-27-2023 Hematocrit (Bld) [Volume fraction] 40.0 % 34.0-46.4 [facility] Hemoglobin Test strip Ql (U) Ordered By: Aolk Sandhu on 09-27-2023 Hemoglobin Ql (U) Negative Negative [facility] Hemoglobin [Mass/volume] in BloodOrdered By: Alok Sandhu on 09-27-2023 Hemoglobin (Bld) [Mass/Vol] 13.6 g/dL 11.8-15.4 [facility] Hyaline casts [#/area] in Ur ine sediment by Automated countOrdered By: Alok Sandhu on 09-27-2023 Hyaline casts Auto (Urine sed) [#/Area] None [LPF] 0-8 [facility] Ketones Test strip Ql (U)Ord ered By: Alok Sandhu on 09-27-2023 Ketones Ql (U) 1+ High Negative [facility] Leukocyte esterase [Presence ] in Urine by Test stripOrdered By: Alok Sandhu on 09-27-2023 Leukocyte esterase Test strip Ql (U) Negative Negative [facility] Leukocytes [#/area] in Urine sediment by Automated countOrdered By: Alok Sandhu on 09-27-2023 WBC Auto (Urine sed) [#/Area] 3-4 [HPF] 0-4 [facility] Leukocytes [#/volume] correc leroy for nucleated erythrocytes in Blood by Automated counOrdered By: Alok Sandhu on 09-27-2023 WBC corrected for nucl RBC Auto (Bld) [#/Vol] 10.5 10*3/uL 3.8-11.6 [facility] Lymphocytes Auto (Bld) [#/Vo l]Ordered By: Alok Sandhu on 09-27-2023 Lymphocytes (Bld) [#/Vol] 3.2 10*3/uL 1.00-4.8 [facility] Lymphocytes/100 WBC Auto (Bl d)Ordered By: Alok Sandhu on 09-27-2023 Lymphocytes/100 WBC (Bld) 30.2 % . [facility] MCH Auto (RBC) [Entitic mass ]Ordered By: Alok Sandhu on 09-27-2023 MCH (RBC) [Entitic mass] 30.1 pg 24.7-34.3 [facility] MCHC Auto (RBC) [Mass/Vol]Or dered By: Alok Sandhu on 09-27-2023 MCHC (RBC) [Mass/Vol] 34.0 g/dL 32.0-35.0 [facility] MCV Auto (RBC) [Entitic vol] Ordered By: Alok Sandhu on 09-27-2023 MCV (RBC) [Entitic vol] 88.4 fL 80-100 [facility] Monocytes Auto (Bld) [#/Vol] Ordered By: Alok Sandhu on 09-27-2023 Monocytes (Bld) [#/Vol] 0.9 10*3/uL High 0.0-0.8 [facility] Monocytes/100 WBC Auto (Bld) Ordered By: Alok Sandhu on 09-27-2023 Monocytes/100 WBC (Bld) 8.2 % . [facility] Mucus [Presence] in Urine by AutomatedOrdered By: Alok Sandhu on 09-27-2023 Mucus Auto Ql (U) Rare [LPF] [facility] Neutrophils Auto (Bld) [#/Vo l]Ordered By: Alok Sandhu on 09-27-2023 Neutrophils (Bld) [#/Vol] 6.2 10*3/uL 1.8-7.7 [facility] Neutrophils/100 WBC Auto (Bl d)Ordered By: Alok Sandhu on 09-27-2023 Neutrophils/100 WBC (Bld) 58.8 % . [facility] Nitrite Test strip Ql (U)Ord ered By: Alok Sandhu on 09-27-2023 Nitrite Ql (U) Negative Negative [facility] No Panel InformationOrdered By: Alok Sandhu on 09-27-2023 Estimated GFR (CKD-EPI) > 60.0 mL/Min [facility] Creatinine Clearance (Chem N/A [facility] Total Complement (CH50) 60 U/mL >41 [facility] Comment on above: Age Male Female 1 - 30 days Not Estab. Not Estab. 31 days - 6 months >32 >20 7 months - 17 years >39 >39 >17 years >41 >41 NOTE: The adult ( >17 years ) reference interval range is used to flag abnormals on this report. If the patient is 17 years old or younger, use the table above to determine out of range values.Performed at: [address] [id number] Director: Harsha Villanueva PhD, Phone: [phone] Nucleated erythrocytes [Pres ence] in Blood by Automated countOrdered By: Alok Sandhu on 09-27-2023 Nucleated RBC Auto Ql (Bld) 0.0 /100{WBC} 0-0.5 [facility] Platelet mean volume Auto (B ld) [Entitic vol]Ordered By: Alok Sandhu on 09-27-2023 Platelet mean volume (Bld) [Entitic vol] 7.5 fL 6.3-10.7 [facility] Platelets Auto (Bld) [#/Vol] Ordered By: Alok Sandhu on 09-27-2023 Platelets (Bld) [#/Vol] 456 10*3/uL High 150-450 [facility] Protein Test strip (U) [Mass /Vol]Ordered By: Alok Sandhu on 09-27-2023 Protein (U) [Mass/Vol] Negative [facility] RBC Auto (Bld) [#/Vol]Ordere d By: Alok Sandhu on 09-27-2023 RBC (Bld) [#/Vol] 4.52 10*6/uL 3.60-5.00 [facility] Serum or plasma complement C 3 measurement (mass/volume)Ordered By: Alok Sandhu on 09-27-2023 Complement C3 [Mass/Vol] 162 mg/dL 82-167 [facility] Comment on above: Performed at: [address] [id number] Director: Harsha Villanueva PhD, Phone: [phone] Serum or plasma complement C 4 measurement (mass/volume)Ordered By: Alok Sandhu on 09-27-2023 Complement C4 [Mass/Vol] 33 mg/dL 12-38 [facility] Specific gravity Test strip (U) [Rel density]Ordered By: Alok Sandhu on 09-27-2023 Specific gravity (U) [Rel density] 1.022 1.001-1.030 [facility] Urine appearanceOrdered By: Alok Sandhu on 09-27-2023 Appearance (U) Clear Clear [facility] Urobilinogen Test strip (U) [Mass/Vol]Ordered By: Alok Sandhu on 09-27-2023 Urobilinogen (U) [Mass/Vol] Normal mg/dL Normal [facility] WBC Auto (Bld) [#/Vol]Ordere d By: Alok Sandhu on 09-27-2023 WBC (Bld) [#/Vol] 10.5 10*3/uL 3.8-11.6 [facility] pH Test strip (U)Ordered By: Alok Sandhu on 09-27-2023 pH (U) 5.5 [pH] 5.0-9.0 [facility] Reminderson 09-17-2023 Reminders Reminders - From: Heavenly Sanchez To: [place] - Recalleboni Aguilera; Sent: 02/11/2023 16:28:23 EST Show up: 06/13/2023 17:28:00 EDT Subject: NOAH/KUB Due Date/Time: 08/13/2023 17:28:00 EDT Pt is to get KUB and NOAH done at [facility] prior to appt. Called pt and left VM to return our call. NOAH/KUB order faxed to [facility]. LM on VM to nity pt to angelica back and reschedule if she has not had imaging done and is not having any isues. . Patient cancelled appointment via the automated reminder system. - From: Milagros Beltran ([place] - Recalleboni Aguilera) To: Mirna Aguilera MD; Sent: 09/16/2023 08:57:17 EDT Show up: 09/16/2023 08:57:00 EDT Subject: RE: NOAH/KUB Does pt need tracked? - From: Mirna Aguilera MD To: EU - Recalleboni Aguilera; Sent: 09/17/2023 12:13:32 EDT Show up: 09/17/2023 12:13:00 EDT Subject: RE: NOAH/KUB No Thanks, KML [facility] Serum or plasma progesterone measurement (mass/volume)Ordered By: Mandy Patel on 09-04-2023 Progesterone [Mass/Vol] 11.8 ng/mL . [facility] Comment on above: Follicular phase 0.1 - 0.9 Luteal phase 1.8 - 23.9 Ovulation phase 0.1 - 12.0 First trimester 11.0 - 44.3 Second trimester 25.4 - 83.3 Third trimester 58.7 - 214.0 Postmenopausal 0.0 - 0.1Performed at: [facility] [id number] Director: Harsha Villanueva PhD, Phone: [phone] Serum or plasma progesterone measurement (mass/volume)Ordered By: Mandy Patel on 08-07-2023 Progesterone [Mass/Vol] 12.5 ng/mL . [facility] Comment on above: Follicular phase 0.1 - 0.9 Luteal phase 1.8 - 23.9 Ovulation phase 0.1 - 12.0 First trimester 11.0 - 44.3 Second trimester 25.4 - 83.3 Third trimester 58.7 - 214.0 Postmenopausal 0.0 - 0.1Performed at: [facility] [address] [id number] Director: Harsha Villanueva PhD, Phone: [phone] Alanine aminotransferase [En zymatic activity/volume] in Serum or PlasmaOrdered By: Pippa Lane on 07-15-2023 ALT [Catalytic activity/Vol] 14 U/L [facility] ALT [Catalytic activity/Vol] Alanine aminotransferase [Enzymatic activity/volume] in Serum or Plasma [facility] Albumin [Mass/volume] in Ser um or Plasma by Bromocresol green (BCG) dye binding methoOrdered By: Pippa Lane on 07-15-2023 Albumin BCG dye [Mass/Vol] 4.1 g/dL 3.5-5.7 [facility] Albumin BCG dye [Mass/Vol] Albumin [Mass/volume] in Serum or Plasma by Bromocresol green (BCG) dye binding metho 3.5-5.7 [facility] Alkaline phosphatase [Enzyma tic activity/volume] in Serum or PlasmaOrdered By: Pippa Lane on 07-15-2023 ALP [Catalytic activity/Vol] 64 U/L [facility] ALP [Catalytic activity/Vol] Alkaline phosphatase [Enzymatic activity/volume] in Serum or Plasma [facility] Aspartate aminotransferase [ Enzymatic activity/volume] in Serum or PlasmaOrdered By: Pippa Lane on 07-15-2023 AST [Catalytic activity/Vol] 19 U/L [facility] AST [Catalytic activity/Vol] Aspartate aminotransferase [Enzymatic activity/volume] in Serum or Plasma 1339 [facility] Basophils Auto (Bld) [#/Vol] Ordered By: trinidad Lane on 07-15-2023 Basophils (Bld) [#/Vol] 0.1 10*3/uL 0.0-0.2 [facility] Basophils/100 WBC Auto (Bld) Ordered By: trinidad Lane on 07-15-2023 Basophils/100 WBC (Bld) 0.8 % . [facility] Bilirubin.total [Mass/volume ] in Serum or PlasmaOrdered By: trinidad Lane on 07-15-2023 Bilirubin [Mass/Vol] 0.2 mg/dL Low 0.3-1.0 [facility] Bilirubin [Mass/Vol] Bilirubin.total [Mass/volume] in Serum or Plasma Low 0.3-1.0 [facility] Calcium [Mass/volume] in Ser um or PlasmaOrdered By: trinidad Lane on 07-15-2023 Calcium [Mass/Vol] 9.1 mg/dL 8.6-10.3 [facility] Calcium [Mass/Vol] Calcium [Mass/volume] in Serum or Plasma 8.6-10.3 [facility] Carbon dioxide, total [Moles /volume] in Serum or PlasmaOrdered By: trinidad Coyle on 07-15-2023 CO2 [Moles/Vol] 25.8 mmol/L 21.0-31.0 [facility] CO2 [Moles/Vol] Carbon dioxide, total [Moles/volume] in Serum or Plasma 21.0-31.0 [facility] Chloride [Moles/volume] in S lenore or PlasmaOrdered By: trinidad Lane on 07-15-2023 Chloride [Moles/Vol] 109 mmol/L High 98-107 [facility] Chloride [Moles/Vol] Chloride [Moles/volume] in Serum or Plasma High 98-107 [facility] Cortisol [Mass/volume] in Se rum or PlasmaOrdered By: [facility] 07-[facility]23 Cortisol [Mass/Vol] Random cortisol measurement [facility] Comment on above: [facility] care transitions nurse and method:[employer] UNICEL DXI, POLYCLONAL ANTIBODY CORTISOL ASSAY.Reference range: AM 6 - 24 ug/dl PM <10 ug/dl Creatinine [Mass/volume] in Serum or PlasmaOrdered By: Pippa Lane on 07-15-2023 Creatinine [Mass/Vol] 0.87 mg/dL 0.60-1.20 [facility] Creatinine [Mass/Vol] Creatinine [Mass/volume] in Serum or Plasma 0.60-1.20 [facility] Eosinophils Auto (Bld) [#/Vo l]Ordered By: Pippa Lane on 07-15-2023 Eosinophils (Bld) [#/Vol] 0.4 10*3/uL 0.0-0.45 [facility] Eosinophils/100 WBC Auto (Bl d)Ordered By: trinidad Lane on 07-15-2023 Eosinophils/100 WBC (Bld) 3.8 % . [facility] Erythrocyte distribution wid th Auto (RBC) [Ratio]Ordered By: Pippa Lane on 07-15-2023 Erythrocyte distribution width (RBC) [Ratio] 12.9 % 11.9-15.3 [facility] Ferritin [Mass/volume] in Se rum or PlasmaOrdered By: Pippa Lane on 07-15-2023 Ferritin [Mass/Vol] 30.0 ng/mL 11.0-306.8 [facility] Folate [Mass/volume] in Seru m or PlasmaOrdered By: Pippa Lane on 07-15-2023 Folate [Mass/Vol] ng/mL >5.[address] [facility] Comment on above: Folate reference ran ge: >5.9 ng/mlThe WHO technical consultation on folate and vitamin [id number] has determined that folate concentrations lessthan 4 ng/ml are considered deficient. Folate [Mass/Vol] Folate [Mass/volume] in Serum or Plasma >5.9 [facility] Comment on above: Folate reference ran ge: >5.9 ng/mlThe WHO technical consultation on folate and vitamin [id number] has determined that folate concentrations lessthan 4 ng/ml are considered deficient. Globulin Calc (S) [Mass/Vol] Ordered By: Pippa Lane on 07-15-2023 Globulin (S) [Mass/Vol] 2.7 g/dL [facility] Globulin (S) [Mass/Vol] Serum globulin measurement by calculation (mass/volume) [facility] Glucose [Mass/volume] in Ser um or PlasmaOrdered By: Pippa Lane on 07-15-2023 Glucose [Mass/Vol] 103 mg/dL High 70-100 [facility] Comment on above: ADA recommended refe rence rangeRandom Glucose Reference Range is dependent on time and content of last meal. Glucose of more than 200 mg/dL in a nonstressed, ambulatory subject supports the diagnosis of Diabetes Mellitus. Glucose [Mass/Vol] Glucose [Mass/volume] in Serum or Plasma High 70-100 [facility] Comment on above: ADA recommended refe rence rangeRandom Glucose Reference Range is dependent on time and content of last meal. Glucose of more than 200 mg/dL in a nonstressed, ambulatory subject supports the diagnosis of Diabetes Mellitus. HIV 1 and HIV-2 antibody ass ay with HIV-1 p24 antigen detectionOrdered By: Pippa Lane on 07-15-2023 HIV 1+2 Ab+HIV1 p24 Ag IA Ql Non-Reactive Non Reactive [facility] Comment on above: HIV NegativeHIV-1/HI V-2 antibodies and HIV-1 p24 antigen were NOTdetected. There is no laboratory evidence of HIV infection.Performed at: [facility] [address] [id number] Director: Harsha Villanueva PhD, Phone: [phone] HIV antibody and antigen rodriguez elOrdered By: Pippa Lane on 07-15-2023 HIV 1+2 Ab+HIV1 p24 Ag IA Ql HIV 1 and HIV-2 antibody assay with HIV-1 p24 antigen detection Non Reactive [facility] Comment on above: HIV NegativeHIV-1/HI V-2 antibodies and HIV-1 p24 antigen were NOTdetected. There is no laboratory evidence of HIV infection.Performed at: [facility] [address] [id number] Director: Harsha Villanueva PhD, Phone: [phone] Hematocrit Auto (Bld) [Volum e fraction]Ordered By: Pippa Lnae on 07-15-2023 Hematocrit (Bld) [Volume fraction] 40.5 % 34.0-46.4 [facility] Hemoglobin [Mass/volume] in BloodOrdered By: Pippa Lane on 07-15-2023 Hemoglobin (Bld) [Mass/Vol] 13.7 g/dL 11.8-15.4 [facility] Hepatitis B virus core antib natividad assayOrdered By: Pippa Lane on 07-15-2023 Hepatitis B Core Total Antibody Negative Negative [facility] Comment on above: Performed at: [address] Director: Harsha Villanueva PhD, Phone: [phone] Hepatitis B virus surface Ab [Presence] in SerumOrdered By: Pippa Lane on 07-15-2023 HBV surface Ab Ql (S) Reactive . [facility] Comment on above: Non Reactive: Incons istent with immunity, less than 10 mIU/mL Reactive: Consistent with immunity, greater than 9.9 mIU/mL Hepatitis B virus surface Ag [Presence] in Serum or Plasma by ImmunoassayOrdered By: Pippa Lane on 07-15-2023 HBV surface Ag IA Ql Negative Negative [facility] Hepatitis C virus IgG Ab [Pr esence] in Serum or Plasma by ImmunoassayOrdered By: Pippa Lane on 07-15-2023 HCV IgG IA Ql Non-Reactive Non Reactive [facility] HCV IgG IA Ql Hepatitis C virus IgG Ab [Presence] in Serum or Plasma by Immunoassay Non Reactive [facility] Iron [Mass/volume] in Serum or PlasmaOrdered By: Pippa Lane on 07-15-2023 Iron [Mass/Vol] 47 ug/dL Low 50-212 [facility] Iron binding capacity [Mass/ volume] in Serum or PlasmaOrdered By: Pippa Lane on 07-15-2023 Iron binding capacity [Mass/Vol] 419 ug/dL 255-450 [facility] Iron saturation [Mass Fracti on] in Serum or PlasmaOrdered By: Pippa Lane on 07-15-2023 Iron saturation [Mass fraction] 11.2 % Low 20-50 [facility] Leukocytes [#/volume] correc leroy for nucleated erythrocytes in Blood by Automated counOrdered By: Pippa Lane on 07-15-2023 WBC corrected for nucl RBC Auto (Bld) [#/Vol] 10.4 10*3/uL 3.8-11.6 [facility] Lymphocytes Auto (Bld) [#/Vo l]Ordered By: Pippa Lane on 07-15-2023 Lymphocytes (Bld) [#/Vol] 3.3 10*3/uL 1.00-4.8 [facility] Lymphocytes/100 WBC Auto (Bl d)Ordered By: Pippa Lane on 07-15-2023 Lymphocytes/100 WBC (Bld) 31.9 % . [facility] MCH Auto (RBC) [Entitic mass ]Ordered By: Pippa Lane on 07-15-2023 MCH (RBC) [Entitic mass] 29.6 pg 24.7-34.3 [facility] MCHC Auto (RBC) [Mass/Vol]Or dered By: Pippa Lane on 07-15-2023 MCHC (RBC) [Mass/Vol] 33.9 g/dL 32.0-35.0 [facility] MCV Auto (RBC) [Entitic vol] Ordered By: Pippa Lane on 07-15-2023 MCV (RBC) [Entitic vol] 87.5 fL 80-100 [facility] Monocytes Auto (Bld) [#/Vol] Ordered By: Pippa Lane on 07-15-2023 Monocytes (Bld) [#/Vol] 0.9 10*3/uL High 0.0-0.8 [facility] Monocytes/100 WBC Auto (Bld) Ordered By: Pippa Lane on 07-15-2023 Monocytes/100 WBC (Bld) 8.5 % . [facility] Neutrophils Auto (Bld) [#/Vo l]Ordered By: Pippa Lane on 07-15-2023 Neutrophils (Bld) [#/Vol] 5.7 10*3/uL 1.8-7.7 [facility] Neutrophils/100 WBC Auto (Bl d)Ordered By: Pippa Lane on 07-15-2023 Neutrophils/100 WBC (Bld) 55.0 % . [facility] No Panel InformationOrdered By: Pippa Lane on 07-15-2023 Anti-Nuclear Antibody Comment 2 See comment . [facility] Comment on above: Pattern Potential Di sease Association Homogeneous Systemic Lupus Erythematosus, Drug Induced Systemic Lupus Erythematosus, Chronic Autoimmune hepatitis, Juvenile Idiopathic Arthritis Speckled Sjogren Syndrome, Systemic Lupus Erythematosus, Subacute Cutaneous Lupus, Lupus, Congenital Heart Block, Mixed Connective Tissue Disease, Scleroderma-diffuse, Scleroderma-Autoimmune Myositis Overlap Syndrome, Systemic Lupus Pqvisetnftszt-Dgnvcfpfrqu-Hcxafpbsgj Myositis Overlap Syndrome, Systemic Autoimmune Rheumatic Disease, Undifferentiated Connective Tissue Disease Nucleolar Systemic Sclerosis, Scleroderma-Autoimmune Myositis Overlap Syndrome, Sjogren Syndrome, Raynaud phenomenon, Pulmonary Arterial Hypertension, Systemic Autoimmune Rheumatic Disease, Cancer Centromere Scleroderma-CREST, Limited Cutaneous SSc, Raynaud's Phenomenon, Primary Biliary Cholangitis Nuclear Dot Primary Biliary Cholangitis Nuclear Primary Biliary Cholangitis, AutoimmuneMembrane Hepatitis/Liver disease, Systemic Autoimmune Rheumatic Disease, Autoimmune Cytopenias, Linear Scleroderma, Antiphospholipid Syndrome Performed at: [facility] [place] [id number] Director: Harsha Villanueva PhD, Phone: [phone] BCR/abl See comment [facility] Comment on above: See report. Scanned copy available in EMR. Estimated GFR (CKD-EPI) > 60.0 mL/Min [facility] Hepatitis C Interpretation See comment . [facility] Comment on above: Not infected with HC V unless early or acute infection issuspected (which may be delayed in an immunocompromisedindividual), or other evidence exists to indicate HCVinfection. Pharmacy Creatinine Clearance (Chem N/A [facility] Nucleated erythrocytes [Pres ence] in Blood by Automated countOrdered By: Pippa Lane on 07-15-2023 Nucleated RBC Auto Ql (Bld) 0.2 /100{WBC} 0-0.5 [facility] Platelet mean volume Auto (B ld) [Entitic vol]Ordered By: Pippa Lane on 07-15-2023 Platelet mean volume (Bld) [Entitic vol] 7.2 fL 6.3-10.7 [facility] Platelets Auto (Bld) [#/Vol] Ordered By: Pippa Lane on 07-15-2023 Platelets (Bld) [#/Vol] 394 10*3/uL 150-450 [facility] Potassium [Moles/volume] in Serum or PlasmaOrdered By: Pippa Laen on 07-15-2023 Potassium [Moles/Vol] 4.1 mmol/L 3.5-5.1 [facility] Potassium [Moles/Vol] Potassium [Moles/volume] in Serum or Plasma 3.5-5.1 [facility] Protein [Mass/volume] in Ser um or PlasmaOrdered By: Pippa Lane on 07-15-2023 Protein [Mass/Vol] 6.8 g/dL 6.4-8.9 [facility] Protein [Mass/Vol] Protein [Mass/volume] in Serum or Plasma 6.4-8.9 [facility] RBC Auto (Bld) [#/Vol]Ordere d By: Pippa Lane on 07-15-2023 RBC (Bld) [#/Vol] 4.63 10*6/uL 3.60-5.00 [facility] Random cortisol measurementO rdered By: Pippa Lane on 07-15-2023 Cortisol [Mass/Vol] 14.8 ug/dL [facility] Comment on above: [facility] care transitions nurse and method:[employer] DXI, POLYCLONAL ANTIBODY CORTISOL ASSAY.Reference range: AM 6 - 24 ug/dl PM <10 ug/dl Serum angiotensin converting enzyme (RADHA) measurementOrdered By: Pippa Lane on 07-15-2023 Angiotensin converting enzyme [Catalytic activity/Vol] 16 U/L [facility] Comment on above: Performed at: [facility] [address] [id number] Director: Harsha Villanueva PhD, Phone: [phone] Angiotensin converting enzyme [Catalytic activity/Vol] Serum angiotensin converting enzyme (RADHA) measurement [facility] Comment on above: Performed at: [facility] [address] [id number] Director: Harsha Villanueva PhD, Phone: [phone] Serum hepatitis B virus surf radha antibody detectionOrdered By: Pippa Lane on 07-15-2023 HBV surface Ab Ql (S) Hepatitis B virus surface Ab [Presence] in Serum . [facility] Comment on above: Non Reactive: Incons istent with immunity, less than 10 mIU/mL Reactive: Consistent with immunity, greater than 9.9 mIU/mL Serum homogeneous pattern an tinuclear antibody (VANDANA) titerOrdered By: Pippa Coyle on 07-15-2023 Homogenous nuclear Ab pattern (S) [Titer] 1:80 . [facility] Comment on above: ICAP nomenclature: A C-1 Homogenous nuclear Ab pattern (S) [Titer] Serum homogeneous pattern antinuclear antibody (VANDANA) titer . [facility] Comment on above: ICAP nomenclature: A C-1 Serum nuclear antibody titer Ordered By: Pippa Lane on 07-15-2023 Nuclear Ab (S) [Titer] Positive Abnormal . [facility] Comment on above: Negative <1:80 Borde rline 1:80 Positive >1:80 Nuclear Ab (S) [Titer] Serum nuclear antibody titer Abnormal . [facility] Comment on above: Negative <1:80 Borde rline 1:80 Positive >1:80 Serum or plasma albumin/glob ulin mass ratioOrdered By: Pippa Lane on 07-15-2023 Albumin/Globulin [Mass ratio] 1.5 {ratio} [facility] Albumin/Globulin [Mass ratio] Serum or plasma albumin/globulin mass ratio [facility] Serum or plasma anion gap de terminationOrdered By: Pippa Lane on 07-15-2023 Anion gap [Moles/Vol] 9.3 mmol/L 6.0-15.0 [facility] Anion gap [Moles/Vol] Serum or plasma anion gap determination 6.0-15.0 [facility] Serum or plasma hepatitis B virus surface antigen detection by immunoassayOrdered By: Pippa Lane on 07-15-2023 HBV surface Ag IA Ql Hepatitis B virus surface Ag [Presence] in Serum or Plasma by Immunoassay Negative [facility] Serum or plasma rheumatoid f actor measurement (units/volume)Ordered By: Pippa Lane on 05-30-2024 Rheumatoid factor Qn [IU]/mL <14.0 [facility] Comment on above: Performed at: [facility] [employer] [id number] [place], [place] [id number] Director: Harsha Villanueva PhD, Phone: [phone] Rheumatoid factor Qn Serum or plasma rheumatoid factor measurement (units/volume) <14.0 [facility] Comment on above: Performed at: [employer] [id number] [place], [place] [id number] Director: Harsha Villanueva PhD, Phone: [phone] Sodium [Moles/volume] in Ser um or PlasmaOrdered By: Pippa Lane on 07-15-2023 Sodium [Moles/Vol] 140 mmol/L 136-145 [facility] Sodium [Moles/Vol] Sodium [Moles/volume] in Serum or Plasma 136-145 [facility] Thyrotropin [Units/volume] i n Serum or PlasmaOrdered By: Pippa Lane on 07-15-2023 TSH Qn 2.11 m[IU]/L 0.45-5.33 [facility] TSH Qn Thyrotropin [Units/volume] in Serum or Plasma 0.45-5.33 [facility] Thyroxine (T4) free [Mass/vo lume] in Serum or PlasmaOrdered By: Pippa Lane on 07-15-2023 Free T4 [Mass/Vol] 0.62 ng/dL 0.61-1.12 [facility] Free T4 [Mass/Vol] Thyroxine (T4) free [Mass/volume] in Serum or Plasma 0.61-1.12 [facility] Transferrin [Mass/volume] in Serum or PlasmaOrdered By: Pippa Lane on 07-15-2023 Transferrin [Mass/Vol] 299 mg/dL 203-362 [facility] Urea nitrogen [Mass/volume] in Serum or PlasmaOrdered By: Pippa Lane on 07-15-2023 Urea nitrogen [Mass/Vol] 8 mg/dL 09-08 [facility] Urea nitrogen [Mass/Vol] Urea nitrogen [Mass/volume] in Serum or Plasma 09-08 [facility] Vitamin B12 ser/plasOrdered By: Pippa Lane on 07-15-2023 Cobalamin (Vitamin B12) [Mass/Vol] 806 pg/mL 180 [facility] Cobalamin (Vitamin B12) [Mass/Vol] Vitamin B12 ser/plas 180- [facility] WBC Auto (Bld) [#/Vol]Ordere d By: Pippa ByersTahminajenny on 07-15-2023 WBC (Bld) [#/Vol] 10.4 10*3/uL 3.8-11.6 [facility] Calculus Analysison 02-19-19 24 Calcium oxalate dihydrate Infrared spectroscopy (Stone) [Mass fraction] 90 % Invalid Interpretation Code [facility] Comment on above: Performed By: #### 1 [id number] #### [facility] [address] [place] [address] Calcium oxalate monohydrate (Stone) [Mass fraction] 10 % Invalid Interpretation Code [facility] Comment on above: Performed By: #### 1 [id number] #### [facility] [address] [place] [address] Color (Stone) River Invalid Interpretation Code [facility] Comment on above: Performed By: #### 1 [id number] #### [facility] [address] [place] [address] Composition Comment Invalid Interpretation Code [facility] Comment on above: Result Comment: Perc entage (Represents the % composition) Performed By: #### 1 [id number] #### [facility] [address] [place] [address] Disclaimer: Comment Invalid Interpretation Code [facility] Comment on above: Result Comment: This test was developed and its performance characteristics determined by [employer]. It has not been cleared or approved by the Food and Drug Administration. Performed at: [address] [id number] PhD Rich Mcleod Performed By: #### 1 [id number] #### [facility] [address] [place] [address] Laboratory comment Luke (Report) Comment Invalid Interpretation Code [facility] Comment on above: Result Comment: Phys floydan questions regarding Calculi Analysis contact [facility] at: [phone]. Performed By: #### 1 [id number] #### [facility] [address] [place] [address] Please Note: Comment Invalid Interpretation Code [facility] Comment on above: Result Comment: Calc criss report will follow via computer, mail or ship's officer delivery. Performed By: #### 1 [id number] #### [facility] [address] [place] [address] Size (Stone) [Entitic vol] 2x[address] [facility] Comment on above: Result Comment: Sing le piece received. Performed By: #### 1 [id number] #### [facility] [address] [place] [address] Specimen source subject Nom Comment Invalid Interpretation Code [facility] Comment on above: Result Comment: Not provided Performed By: #### 1 [id number] #### [facility] [address] [place] [address] Stone Photo Comment Invalid Interpretation Code [facility] Comment on above: Result Comment: Phot ograph will follow under a separate cover Performed By: #### 1 [id number] #### [facility] [address] [place] [address] Weight (Stone) 2 mg Invalid Interpretation Code [facility] Comment on above: Performed By: #### 1 [id number] #### [facility] [address] [place] [address] ED Note-Physicianon 02-13-20 23 ED Note-Physician [id number] 3#1.00TIFF Normal [facility] Formson 02-12-2023 Forms [id number] #1.00TIFF Normal [facility] Lab Reportson 02-12-2023 Lab Reports [id number] 4#1.00TIFF [facility] RAD - CT Reporton 02-12-2023 RAD - CT Report [id number] 6#1.00TIFF [facility] Screenson 02-12-2023 Screens [id number] 1#1.00TIFF [facility] Ambulatory Visit Summaryon 1 04-14-2022 Ambulatory Visit Summary DANELLE GUIDO :2000 Visit Date:02/11/2023 Ambulatory Visit Instructions Your Diagnosis Hydronephrosis with ureteral calculus Kidney stone Bladder pain Family history of kidney stones Tests Performed Urnls Dip Stick Auto w/o Microscopy POC 77126 US Renal -- Results Pending -- XR Abdomen 1 View -- Results Pending -- Please visit your patient portal for your results or contact your primary care physician. Your Care Team Attending Physician - Mirna Aguilera MD Primary Care Physician - Rebecca MCMILLAN DO This Is Your Medications List Contact prescribing physician if questions or concerns desvenlafaxine (desvenlafaxine 50 mg Tab-) metformin (metformin 500 mg Tab) Procedures Performed Colonoscopy. What to do next Scheduled Follow-Up Appointments Wednesday 9:00 AM EDT With: Mirna Aguilera MD Where: [facility] Patient Educationon 02-12-20 23 Patient Education Dietary Guidelines to Help Prevent Kidney Stones Kidney stones are deposits of minerals and salts that form inside your kidneys. Your risk of developing kidney stones may be greater depending on your diet, your lifestyle, the medicines you take, and whether you have certain medical conditions. Most people can lower their risks of developing kidney stones by following these dietary guidelines. Your dietitian may give you more specific instructions depending on your overall health and the type of kidney stones you tend to develop. What are tips for following this plan? Reading food labels ? Choose foods with no salt added or low-salt labels. Limit your salt (sodium) intake to less than 1,500 mg a day. ? Choose foods with calcium for each meal and snack. Try to eat about 300 mg of calcium at each meal. Foods that contain 200?500 mg of calcium a serving include: ? 8 oz (237 mL) of milk, calcium-fortifiednon -dairy milk, and calcium-fortifiedfru it juice. Calcium-fortified means that calcium has been added to these drinks. ? 8 oz (237 mL) of kefir, yogurt, and soy yogurt. ? 4 oz (114 g) of tofu. ? 1 oz (28 g) of cheese. ? 1 cup (150 g) of dried figs. ? 1 cup (91 g) of cooked broccoli. ? One 3 oz (85 g) can of sardines or mackerel. Most people need 1,000?1,500 mg of calcium a day. Talk to your dietitian about how much calcium is recommended for you. Shopping ? Buy plenty of fresh fruits and vegetables. Most people do not need to avoid fruits and vegetables, even if these foods contain nutrients that may contribute to kidney stones. ? When shopping for convenience foods, choose: ? Whole pieces of fruit. ? Pre-made salads with dressing on the side. ? Low-fat fruit and yogurt smoothies. ? Avoid buying frozen meals or prepared deli foods. These can be high in sodium. ? Look for foods with live cultures, such as yogurt and kefir. ? Choose high-fiber grains, such as whole-wheat breads, oat bran, and wheat cereals. Cooking ? Do not add salt to food when cooking. Place a salt shaker on the table and allow each person to add their own salt to taste. ? Use vegetable protein, such as beans, textured vegetable protein (TVP), or tofu, instead of meat in pasta, casseroles, and soups. Meal planning ? Eat less salt, if told by your dietitian. To do this: ? Avoid eating processed or pre-made food. ? Avoid eating fast food. ? Eat less animal protein, including cheese, meat, poultry, or fish, if told by your dietitian. To do this: ? Limit the number of times you have meat, poultry, fish, or cheese each week. Eat a diet free of meat at least 2 days a week. ? Eat only one serving each day of meat, poultry, fish, or seafood. ? When you prepare animal proteins, cut pieces into small portion sizes. For most meat and fish, one serving is about the size of the palm of your hand. ? Eat at least five servings of fresh fruits and vegetables each day. To do this: ? Keep fruits and vegetables on hand for snacks. ? Eat one piece of fruit or a handful of berries with breakfast. ? Have a salad and fruit at lunch. ? Have two kinds of vegetables at dinner. ? You may be told to limit foods that are high in a substance called oxalate. These include: ? Spinach (cooked), rhubarb, beets, sweet potatoes, and Portuguese chard. ? Peanuts. ? Potato chips, lithuanian fries, and baked potatoes with skin on. ? Nuts and nut products. ? Chocolate. ? If you regularly take a diuretic medicine, make sure to eat at least 1 or 2 servings of fruits or vegetables that are high in potassium each day. These include: ? Avocado. ? Banana. ? Mcclain, prune, carrot, or tomato juice. ? Baked potato. ? Cabbage. ? Beans and split peas. Lifestyle ? Drink enough fluid to keep your urine pale yellow. This is the most important thing you can do. Spread your fluid intake throughout the day. ? If you drink alcohol: ? Limit how much you have to: ? 0?1 drink a day for women who are not . ? 0?2 drinks a day for men. ? Know how much alcohol is in your drink. In the [place] one drink equals one 12 oz bottle of beer (355 mL), one 5 oz glass of wine (148 mL), or one 1? oz glass of hard liquor (44 mL). ? Lose weight if told by your health care provider. Work with your dietitian to find an eating plan and weight loss strategies that work best for you. General information ? Talk to your health care provider and dietitian about taking daily supplements. Depending on your health and the cause of your kidney stones, you may be told: ? Do not take high-dose supplements of vitamin C (1,000 mg a day or more). ? To take a calcium supplement. ? To take a daily probiotic supplement. ? To take other supplements such as magnesium, fish oil, or vitamin B6. ? Take czsm-mga-dctxlpr and prescription medicines only as told by your health care provider. These include supplements. What foods should I limit? (more content not included)... Normal [facility] RAD - Ultrasound Reporton RAD - Ultrasound Report [id number] #1.00TIFF Normal [facility] Urology Office/Clinic Noteon 02-11-2023 Urology Office/Clinic Note HPI Staff New Pt. Pt was seen at [facility] on 01/28/23 due to right flank pain. CT SCAN done 01/28/23 1-2mm stone in the distal right ureter contributing to mild right hydronephrosis, 2mm non obstructing stone at the inferior pole of the right renal collecting system. BUN 14, Creatinine 0.84-01/28/23. Renal US done 02/09/23. 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 I have reviewed and verified the staff HPI to be accurate for this encounter. There have been no associated fever, chills, flank pain, or blood in the urine. Review of Systems ROS - Provider Constitutional: denies weight loss, denies hot flashes. Eyes: denies eye problems. Gastrointestinal: denies nausea, denies vomiting. Cardiovascular: denies chest pain or angina. Integumentary: no dryness Musculoskeletal: denies musculoskeletal symptoms. ENMT: denies otolaryngeal symptoms. Respiratory: no shortness of breath. Heme/Lymph: denies easy bleeding tendency, denies easy bruising tendency. Psychiatric: no confusion, no anxiety. Genitourinary: See HPI. Physical Exam General Appearance: alert , no acute distress, well nourished, well developed female. Head: normocephalic . Eyes: normal orbit and globe. ENMT: normal examination of external ears. Chest: Symmetric chest rise, respirations non labored . Cardiovascular: regular rate and rhythm. Abdomen: soft, non distended, no tenderness Genitourinary: bladder nonpalpable, no flank tenderness. Skin: warm, dry, no bruising. Psychiatric: cooperative, affect appropriate for age, normal judgement, euthymic mood. Assessment/Plan 22-year-old female new patient here for ER follow-up of ureteral stone 1. Hydronephrosis with ureteral calculus (N13.2: Hydronephrosis with renal and ureteral calculous obstruction) Pt was seen at [facility] on 01/28/23 due to right flank pain. CT AP w/o Con 01/28/23 - 1-2mm stone in distal right ureter, mild right hydronephrosis, 2mm non obstructing stone RLP 02/09/23 NOAH - neg hydro. RLP stone noted UA concerning for infection status post Keflex. Urine culture not sent Pt states that she had passed stone, brought it with her today. Advised pt that we will send it for stone analysis. No hydro on recent ultrasound -Will send stone for Stone Analysis. 2. Kidney stone (N20.0: Calculus of kidney) NOAH 02/09/23 @[facility] - Rt nonobstructing stone in the Rt kidney measuring 0.5x0.3x0.3cm We discussed management options moving forward including general dietary modifications, metabolic stone work-up including serum labs and 24-hour urine analysis, continued surveillance with imaging in 6 to 12 months or expectant management. She admits to not drinking enough water. The patient like to proceed with general recommendations for stone prevention and continued monitoring. General recommendations for stone prevention: -Maintaining urine output > 2.5 liters a day. -Fluid intake > 3 liters a day, consisting of mostly water, although orange juice and lemonade are also excellent choices in non-obese, non-diabetic patients who have concomitant hypocitraturia. Some experts recommend avoiding dark, sugary soda. --Start by increasing fluid intake by 1 L. Add a mixture of 60 ml of concentrated lemon juice in 1 L of water to increase their urinary citrate levels, as citrus juices act as a stone inhibitor for calcium based stones. -Fluid should not be restricted at night, since overnight dehydration and have been implicated as causative factors in nephrolithiasis. -Decrease animal protein intake, in particular: wild game, goose, liver, duck, turkey, chicken, red meat, pork, and seafood should be consumed in moderation. -Restrict sodium to 2.4 grams a day. 1.5 g of sodium a day in those with HTN, Americans, or middle-older aged adults. -Maintain normal calcium oxalate intake from dietary sources. High oxalate intake should be avoided in individuals found to have high urinary oxalate levels on metabolic evaluation. Limit high oxalate folds and drinks, including many nuts, chocolate, spinach rhubarb and soy. Follow up in 6 mos w/NOAH and KUB. All questions/concerns were discussed. Pt to call the office if she encounters any issues prior. Pt acknowledges understanding. -Dietary modifications. -Increase water intake. -Will order NOAH and KUB. Pt prefers [facility]. 3 (more content not included)... Normal [facility] Comment on above: Result Comment: Elec tronically Signed By: Mirna Aguilera MD\.br\Date and Time Signed: 02/11/23 18:06 EST\.br\Electronically Co-Signed By: Heavenly Sanchez\.br\Date and Time Co-Signed: 02/11/23 10:31 EST Alanine aminotransferase [En zymatic activity/volume] in Serum or PlasmaOrdered By: Pooja Cat on 01-28-2023 ALT [Catalytic activity/Vol] 17 U/L 7-52 [facility] Albumin [Mass/volume] in Ser um or Plasma by Bromocresol green (BCG) dye binding methoOrdered By: Pooja Cat on 01-28-2023 Albumin BCG dye [Mass/Vol] 4.5 g/dL 3.5-5.7 [facility] Alkaline phosphatase [Enzyma tic activity/volume] in Serum or PlasmaOrdered By: Pooja Cat on 01-28-2023 ALP [Catalytic activity/Vol] 71 U/L 34-104 [facility] Aspartate aminotransferase [ Enzymatic activity/volume] in Serum or PlasmaOrdered By: Pooja Cat 01-28-2023 AST [Catalytic activity/Vol] 20 U/L 13-39 [facility] Automated erythrocytes count in urine sediment (number/area)Ordered By: Pooja Cta on 01-28-2023 RBC Auto (Urine sed) [#/Area] 20-49 [HPF] 0-4 [facility] Automated leukocytes count i n urine sediment (number/area)Ordered By: Pooja Cat on 01-28-2023 WBC Auto (Urine sed) [#/Area] 3-4 [HPF] 0-4 [facility] Automated urine sediment concepción cium oxalate crystal count by microscopy (number/high powOrdered By: Pooja Cat on 01-28-2023 Calcium oxalate crystals LM.HPF (Urine sed) [#/Area] 3+ [HPF] [facility] Basophils Auto (Bld) [#/Vol] Ordered By: Pooja Cat on 01-28-2023 Basophils (Bld) [#/Vol] 0.1 10*3/uL 0.0-0.2 [facility] Basophils/100 WBC Auto (Bld) Ordered By: Pooja Cat on 01-28-2023 Basophils/100 WBC (Bld) 1.0 % . [facility] Bilirubin Test strip Ql (U)O rdered By: Pooja Cat on 01-28-2023 Bilirubin Ql (U) Negative Negative [facility] Bilirubin.total [Mass/volume ] in Serum or PlasmaOrdered By: Pooja Cat on 01-28-2023 Bilirubin [Mass/Vol] 0.2 mg/dL 0.3-1.0 [facility] Calcium [Mass/volume] in Ser um or PlasmaOrdered By: Pooja Cat on 01-28-2023 Calcium [Mass/Vol] 9.5 mg/dL 8.6-10.3 [facility] Carbon dioxide, total [Moles /volume] in Serum or PlasmaOrdered By: Pooja Cat on 01-28-2023 CO2 [Moles/Vol] 22.3 mmol/L 21.0-31.0 [facility] Chloride [Moles/volume] in S lenore or PlasmaOrdered By: Pooja Cat on 01-28-2023 Chloride [Moles/Vol] 105 mmol/L 98-107 [facility] Color Auto (U)Ordered By: Co shirleyrylee Cat on 01-28-2023 Color (U) Yellow Yellow [facility] Creatinine [Mass/volume] in Serum or PlasmaOrdered By: Pooja Cat on 01-28-2023 Creatinine [Mass/Vol] 0.84 mg/dL 0.60-1.20 [facility] Eosinophils Auto (Bld) [#/Vo l]Ordered By: Pooja Cat on 01-28-2023 Eosinophils (Bld) [#/Vol] 0.4 10*3/uL 0.0-0.45 [facility] Eosinophils/100 WBC Auto (Bl d)Ordered By: Pooja Cat on 01-28-2023 Eosinophils/100 WBC (Bld) 2.9 % . [facility] Erythrocyte distribution wid th Auto (RBC) [Ratio]Ordered By: Pooja Cat on 01-28-2023 Erythrocyte distribution width (RBC) [Ratio] 12.6 % 11.9-15.3 [facility] Globulin Calc (S) [Mass/Vol] Ordered By: Pooja Cat on 01-28-2023 Globulin (S) [Mass/Vol] 2.9 g/dL [facility] Glucose [Mass/volume] in Ser um or PlasmaOrdered By: Pooja Cat on 01-28-2023 Glucose [Mass/Vol] 124 mg/dL 70-100 [facility] Comment on above: ADA recommended refe rence rangeRandom Glucose Reference Range is dependent on time and content of last meal. Glucose of more than 200 mg/dL in a nonstressed, ambulatory subject supports the diagnosis of Diabetes Mellitus. HCG ( test) IA.rapi d Ql (U)Ordered By: Pooja Cat on 01-28-2023 HCG ( test) Ql (U) Negative [facility] Hematocrit Auto (Bld) [Volum e fraction]Ordered By: Pooja Cat on 01-28-2023 Hematocrit (Bld) [Volume fraction] 41.5 % 34.0-46.4 [facility] Hemoglobin [Mass/volume] in BloodOrdered By: Pooja Cat on 01-28-2023 Hemoglobin (Bld) [Mass/Vol] 14.0 g/dL 11.8-15.4 [facility] Ketones Auto test strip (U) [Mass/Vol]Ordered By: Pooja Cat on 01-28-2023 Ketones (U) [Mass/Vol] Trace Negative [facility] Laboratory - UrinalysisOrder ed By: Pooja Cat on 01-28-2023 Hyaline casts LM Ql (Urine sed) 0-8 [LPF] 0-8 [facility] Leukocytes [#/volume] correc leroy for nucleated erythrocytes in Blood by Automated counOrdered By: Pooja Cat on 01-28-2023 WBC corrected for nucl RBC Auto (Bld) [#/Vol] 14.2 10*3/uL 3.8-11.6 [facility] Lipase [Enzymatic activity/v olume] in Serum or PlasmaOrdered By: Pooja Cat on 01-28-2023 Lipase [Catalytic activity/Vol] 30.0 U/L 11.0-82.0 [facility] Lymphocytes Auto (Bld) [#/Vo l]Ordered By: Pooja Cat on 01-28-2023 Lymphocytes (Bld) [#/Vol] 4.2 10*3/uL 1.00-4.8 [facility] Lymphocytes/100 WBC Auto (Bl d)Ordered By: Pooja Cat on 01-28-2023 Lymphocytes/100 WBC (Bld) 29.3 % . [facility] MCH Auto (RBC) [Entitic mass ]Ordered By: Pooja Cat on 01-28-2023 MCH (RBC) [Entitic mass] 29.8 pg 24.7-34.3 [facility] MCHC Auto (RBC) [Mass/Vol]Or dered By: Pooja Cat on 01-28-2023 MCHC (RBC) [Mass/Vol] 33.8 g/dL 32.0-35.0 [facility] MCV Auto (RBC) [Entitic vol] Ordered By: Pooja Cat on 01-28-2023 MCV (RBC) [Entitic vol] 88.2 fL 80-100 [facility] Monocyte distribution width [Entitic volume] in Blood by AutomatedOrdered By: Pooja Cat on 01-28-2023 Monocyte distribution width Auto (Bld) [Entitic vol] 16.56 % 0.00-20.00 [facility] Monocytes Auto (Bld) [#/Vol] Ordered By: Pooja Cat on 01-28-2023 Monocytes (Bld) [#/Vol] 1.0 10*3/uL 0.0-0.8 [facility] Monocytes/100 WBC Auto (Bld) Ordered By: Pooja Cat on 01-28-2023 Monocytes/100 WBC (Bld) 7.3 % . [facility] Neutrophils Auto (Bld) [#/Vo l]Ordered By: Pooja Cat on 01-28-2023 Neutrophils (Bld) [#/Vol] 8.4 10*3/uL 1.8-7.7 [facility] Neutrophils/100 WBC Auto (Bl d)Ordered By: Pooja Cat on 01-28-2023 Neutrophils/100 WBC (Bld) 59.5 % . [facility] Nitrite Test strip Ql (U)Ord ered By: Pooja Cat on 01-28-2023 Nitrite Ql (U) Negative Negative [facility] No Panel InformationOrdered By: Pooja Cat on 01-28-2023 Estimated GFR (CKD-EPI) > 60.0 mL/Min [facility] Creatinine Clearance (Chem 102.80 [facility] Nucleated erythrocytes [Pres ence] in Blood by Automated countOrdered By: Pooja Cat on 01-28-2023 Nucleated RBC Auto Ql (Bld) 0.1 /100{WBC} 0-0.5 [facility] Platelet mean volume Auto (B ld) [Entitic vol]Ordered By: Pooja Cat on 01-28-2023 Platelet mean volume (Bld) [Entitic vol] 7.4 fL 6.3-10.7 [facility] Platelets Auto (Bld) [#/Vol] Ordered By: Pooja Cat on 01-28-2023 Platelets (Bld) [#/Vol] 461 10*3/uL 150-450 [facility] Potassium [Moles/volume] in Serum or PlasmaOrdered By: Pooja Cat on 01-28-2023 Potassium [Moles/Vol] 3.8 mmol/L 3.5-5.1 [facility] Protein Auto test strip (U) [Mass/Vol]Ordered By: Pooja Cat on 01-28-2023 Protein (U) [Mass/Vol] Trace mg/dL Negative [facility] Protein [Mass/volume] in Ser um or PlasmaOrdered By: Pooja Cat on 01-28-2023 Protein [Mass/Vol] 7.4 g/dL 6.4-8.9 [facility] RBC Auto (Bld) [#/Vol]Ordere d By: Pooja Cat on 01-28-2023 RBC (Bld) [#/Vol] 4.70 10*6/uL 3.60-5.00 [facility] Serum or plasma albumin/glob ulin mass ratioOrdered By: Pooja Cat on 01-28-2023 Albumin/Globulin [Mass ratio] 1.6 {ratio} [facility] Serum or plasma anion gap de terminationOrdered By: Pooja Cat on 01-28-2023 Anion gap [Moles/Vol] 14.5 mmol/L 6.0-15.0 [facility] Sodium [Moles/volume] in Ser um or PlasmaOrdered By: Pooja Cat on 01-28-2023 Sodium [Moles/Vol] 138 mmol/L 136-145 [facility] Specific gravity Auto test s trip (U) [Rel density]Ordered By: Pooja Cat on 01-28-2023 Specific gravity (U) [Rel density] 1.028 1.001-1.030 [facility] Squamous epithelial cells de tection in urine sediment by light microscopyOrdered By: Pooja Cat on 01-28-2023 Epithelial cells.squamous LM Ql (Urine sed) 3-4 [HPF] 0-2 [facility] Urea nitrogen [Mass/volume] in Serum or PlasmaOrdered By: Pooja Cat on 01-28-2023 Urea nitrogen [Mass/Vol] 14 mg/dL 7-25 [facility] Urine bacteria detection by automated methodOrdered By: Pooja Cat on 01-28-2023 Bacteria Auto Ql (U) 2+ None Seen [facility] Urine clarity by refractomet ry automatedOrdered By: Pooja Cat on 01-28-2023 Clarity Refractometry automated (U) Cloudy Clear [facility] Urine glucose measurement by automated test strip (mass/volume)Ordered By: Pooja Cat on 01-28-2023 Glucose Auto test strip (U) [Mass/Vol] Normal mg/dL Normal [facility] Urine hemoglobin detection b y automated test stripOrdered By: Pooja Cat on 01-28-2023 Hemoglobin Auto test strip Ql (U) 3+ Negative [facility] Urine leukocyte esterase det ection by automated test stripOrdered By: Pooja Cat on 01-28-2023 Leukocyte esterase Auto test strip Ql (U) 2+ Negative [facility] Urine sediment crystal ident ification by light microscopyOrdered By: Pooja Cat on 01-28-2023 Crystals LM Nom (Urine sed) None seen [HPF] [facility] Urobilinogen Auto test strip (U) [Mass/Vol]Ordered By: Pooja Cat on 01-28-2023 Urobilinogen (U) [Mass/Vol] Normal mg/dL Normal [facility] WBC Auto (Bld) [#/Vol]Ordere d By: Pooja Cat on 01-28-2023 WBC (Bld) [#/Vol] 14.2 10*3/uL 3.8-11.6 [facility] pH Auto test strip (U)Ordere d By: Pooja Cat on 01-28-2023 pH (U) 5.0 [pH] 5.0-9.0 [facility] COVID-19 Detected/Not Detect edOrdered By: Rebecca Mcmillan on 01-15-2022 SARS-CoV-2 (COVID-19) RNA JEFF+non-probe Ql (Nph) Not detected Not Detecte [facility] Comment on above: This is a duplicate RP2.1 COVID (PCR) result to be used for statistical tracking purpose only. No Panel InformationOrdered By: Rebecca Mcmillan on 01-15-2022 Respiratory Panel (PCR) [facility] Covid-19 PCR (CVDTB)on 12-17 SARS-CoV-2 (COVID-19) RNA JEFF+probe Ql (Unsp spec) Not detected Normal NOT DETECTED [facility] Comment on above: Result Comment: When diagnostic testing is negative, the possibility of a false negative should be considered in the context of a patient's recent exposures and the presence of clinical signs and symptoms consistent with SARS-CoV-2. This test is not yet approved or cleared by the [place] FDA. When there are no FDA-approved or cleared tests available, and other criteria are met, FDA can make tests available under an emergency access mechanism called an Emergency Use Authorization (EUA). The EUA for this test is supported by the [place] of Health and Human Service's declaration that circumstances exist to justify the emergency use of in vitro diagnostics for the detection and/or diagnosis of the virus that causes COVID-19. This EUA will remain in effect for the duration of the COVID-19 declaration justifying emergency of IVDs, unless it is terminated or revoked by the FDA (after which the test may no longer be used). Performed By: #### C [facility] #### [facility] [address] [place] [address] Dr. Chencho Fabian Covid-19 PCR (CVDTB)on SARS-CoV-2 (COVID-19) RNA JEFF+probe Ql (Unsp spec) Not detected Normal NOT DETECTED [facility] Comment on above: Result Comment: When diagnostic testing is negative, the possibility of a false negative should be considered in the context of a patient's recent exposures and the presence of clinical signs and symptoms consistent with SARS-CoV-2. This test is not yet approved or cleared by the [place] FDA. When there are no FDA-approved or cleared tests available, and other criteria are met, FDA can make tests available under an emergency access mechanism called an Emergency Use Authorization (EUA). The EUA for this test is supported by the [place] of Health and Human Service's declaration that circumstances exist to justify the emergency use of in vitro diagnostics for the detection and/or diagnosis of the virus that causes COVID-19. This EUA will remain in effect for the duration of the COVID-19 declaration justifying emergency of IVDs, unless it is terminated or revoked by the FDA (after which the test may no longer be used). Performed By: #### C VDTBH #### [facility] [address] [place] [address] Dr. Chencho Fabian QUANTIFERON TB GOLD PLUSon 0 07-04-2021 QuantiFERON Criteria Comment Normal [facility] Comment on above: Result Comment: The QuantiFERON-TB Gold Plus result is determined by subtracting the Nil value from either TB antigen (Ag) tube. The mitogen tube serves as a control for the test. Performed By: #### Q NTTB #### [facility] [address] [place] [address] Dr. Chencho Fabian QuantiFERON Incubation Incubation performed. Normal [facility] Comment on above: Performed By: #### Q NTTB #### [facility] [address] [place] [address] Dr. Chencho Fabian QuantiFERON Mitogen Value >10.00 Normal [facility] Comment on above: Performed By: #### Q NTTB #### [facility] [address] [place] [address] Dr. Chencho Fabian QuantiFERON Nil Value 0.05 IU/mL Normal [facility] Comment on above: Performed By: #### Q NTTB #### [facility] [address] [place] [address] Dr. Chencho Fabian QuantiFERON TB1 Ag Value 0.05 IU/mL Normal [facility] Comment on above: Performed By: #### Q NTTB #### [facility] [address] [place] [address] Dr. Chencho Fabian QuantiFERON TB2 Ag Value 0.07 IU/mL Normal [facility] Comment on above: Performed By: #### Q NTTB #### [facility] [address] [place] [address] Dr. Chencho Fabian QuantiFERON-TB Gold Plus Negative Normal Negative [facility] Comment on above: Result Comment: Chem iluminescence immunoassay methodology Performed By: #### Q NTTB #### [facility] [address] [place] [address] Dr. Chencho Fabian HEPATITIS B SURFACE ANTIBODY , QUANTon 07-03-2021 Hepatitis B Surf AB Quant 948.0 mIU/mL Normal Immunity>9.9 [facility] Comment on above: Result Comment: Stat us of Immunity Anti-HBs Level Inconsistent with Immunity 0.0 - 9.9 Consistent with Immunity >9.9 Performed By: #### H EPBSRF #### [facility] [address] [place] [address] Dr. Chencho Fabian MMR IMMUNITYon 07-03-2021 Mumps Abs, IgG 26.5 AU/mL Normal Immune >10.9 [facility] Comment on above: Result Comment: Nega tive <9.0 Equivocal 9.0 - 10.9 Positive >10.9 A positive result generally indicates past exposure to Mumps virus or previous vaccination. Performed By: #### M MRIMMU #### [facility] [address] [place] [address] Dr. Chencho Fabian Rubella Antibodies, IgG 17.60 index Normal Immune >0.99 [facility] Comment on above: Result Comment: Non- immune <0.90 Equivocal 0.90 - 0.99 Immune >0.99 Performed By: #### M MRIMMU #### [facility] [address] [place] [address] Dr. Chencho Fabian Rubeola Ab, IgG 148.0 AU/mL Normal Immune >16.4 The [facility] Comment on above: Result Comment: Nega tive <13.5 Equivocal 13.5 - 16.4 Positive >16.4 Presence of antibodies to Rubeola is presumptive evidence of immunity except when acute infection is suspected. Performed By: #### M MRIMMU #### [facility] [address] [place] [address] Dr. Chencho Fabian VARICELLA IGG ABon Varicella Zoster IgG 434 index Normal Immune >165 [facility] Comment on above: Result Comment: Nega tive <135 Equivocal 135 - 165 Positive >165 A positive result generally indicates exposure to the pathogen or administration of specific immunoglobulins, but it is not indication of active infection or stage of disease. Performed By: #### V KIRK #### [facility] [address] [address] [address] Chencho Fabian Coding Summary.on 11-24-2019 Coding Summary. CODING DATE: 11/24/2019 FINAL [facility] STATUS: Home (Routine DC) PAYOR: Anselmo ADMIT DX: REASON FOR VISIT DX: R63.5 Abnormal weight gain FINAL DX: PRINCIPAL: R63.5 Abnormal weight gain SECONDARY: R53.83 Other fatigue PYMT PROC APC STAT DESCRIPTION DOCTOR NAME DATE NOTE: The code number assigned matches the documented diagnosis and / or procedure in the patient's chart. However, the narrative phrase printed from the coding software may appear abbreviated, or result in slightly different terminology. Coded By: Kianna Dumont Date Saved: 11/24/2019 11:[address] [facility] Insulin Lvlon 11-07-2019 Insulin Qn 14.6 mcIU/mL 2.6-24.9 [facility] Comment on above: Result Comment: Perf ormed at: [facility] [address] [id number] PhD Rich Mcleod Performed By: #### 2 [id number] #### [facility] [address] [place] [address] Ambulatory Clinical Summaryo n 11-06-2019 Ambulatory Clinical Summary {[id number] Normal [facility] Consent for Treatmenton 10-17 Consent for Treatment [id number] 00 [id number] #[id number]:[id number] [facility] Glu Fastingon 11-06-2019 Glucose [Mass/Vol] 91 mg/dL Normal 55-99 [facility] Comment on above: Performed By: #### 2 [id number], [id number] #### [facility] [address] [place] [address] Gynecology Office/Clinic Not casa 11-06-2019 Gynecology Office/Clinic Note Chief Complaint Discuss if she has Possible PCOS. Obstetric History History (0,0,0,0) No previous pregnancies history have been recorded History of Present Illness 19 y/o here for possible PCOS. Her mother was diagnosed with it at this age and wanted to get checked out. She knows if it is untreated, it can cause heel reducer problems so wanted to be proactive. States symptoms are troubles with her weight and mood stuff. She already has trouble with mood stuff, is on the sertraline. She feels she is more irritable lately and always angry. She feels it is throughout the month, not in relation to her menses. She was 120lbs several months ago, hit 150lbs the other day. She will try to get running and walking and [employer] cardio videos about 1-2 days per week. Her diet hasn't been the greatest lately. She has tried counting calories and doing smaller portions. She has trouble sleeping and fatigue. She is on control pills. Periods come at the end of the inactive pill week. Denies hirsutism and acne. Family history of diabetes in grandfather. Mother not dx with diabetes, but on metformin for the PCOS. Review of Systems PHQ Score Initial Depression Screen Score: 0 Constitutional: No fever, No fatigue. Gynecology:No painful periods,No abnormal bleeding,No pelvic pain,Yes hair loss/growth Neurological:No headache. Psychiatric:Yes sleeping problems,Yes irritability Physical Exam Vitals & Measurements T: 36.3 ?C (Temporal Artery) BP: 118/74 HT: 165.5 cm HT: 165.5 cm WT: 67.9 kg WT: 67.9 kg BMI: 24.79 General Exam: Constitutional: alert, no acute distress, well hydrated, well developed, well nourished. Skin: normal color, no rashes, no lesions, no unusual bruising. Head: atraumatic, normocephalic. Eyes: EOM intact, no nystagmus, no icterus. Ears: no external deformities, gross hearing intact. Respiratory: no respiratory distress. Extremities: no deformities, no clubbing, no cyanosis. Neurol: normal, cranial nn II-XII grossly intact, sensation intact, motor intact, station & gait normal. Psych: oriented to all spheres, affect and mood appropriate, normal interaction, good eye contact. Assessment/Plan 1. Weight gain (R63.5: Abnormal weight gain) Discussed she does not meet the diagnostic criteria for PCOS at this time. Discussed how metabolism changes with aging. Discussed healthy diet focusing on fruits, vegetables, lean proteins, whole grains, and limiting sugars and empty calories. Recommend exercising 30 minutes per day at least 5 days per week. Plan to check thyroid to be sure. Also plan to check insulin level and fasting glucose as insulin resistance . Ordered: Glucose Fasting Insulin Level Total TSH With T4fr Reflex 2. Fatigue (R53.83: Other fatigue) Plan to check thyroid. Could also be related to her problems sleeping. Increase exercise can help with weight, stress reduction and can improve sleep quality. Ordered: Glucose Fasting Insulin Level Total TSH With T4fr Reflex 3. Irritability and anger (R45.4: Irritability and anger) Recommend for pt to follow up with PCP or whomever prescribes her the sertraline. Change in dose or medication or addition of counseling may be warranted. 4. Trouble in sleeping (G47.9: Sleep disorder, unspecified) See problem 3. Follow-up No qualifying data available Problem List/Past Medical History Ongoing Fatigue Irritability and anger Trouble in sleeping Weight gain Historical No qualifying data Medications drospirenone/ethinyl estradiol/levomefola te biphasic 3 mg-0.03 mg-0.451 mg oral tablet, 1 tab(s), Oral, Daily sertraline 50 mg Tab, 50 mg= 1 tab(s), Oral, Daily Allergies No Known Medication Allergies Social History Alcohol - Denies Alcohol Use, 06/20/2019 Substance Abuse - Denies Substance Abuse, 06/20/2019 Tobacco - Denies Tobacco Use, 06/20/2019 Never (less than 100 in lifetime) Tobacco Use:. Never Smokeless Tobacco Use:., 11/06/2019 Family History Hypertension: Father. Primary malignant neoplasm of colon: Grandparent. Normal [facility] Comment on above: Result Comment: Elec tronically Signed By: Ave PIEDRA\.jericho\Date and Time Signed: 11/06/19 09:52 EDT TSH With T4fr Reflexon 11-05 TSH Qn 2.63 mcIU/mL Normal 0.34-5.60 [facility] Comment on above: Performed By: #### 2 [id number], [id number] #### [facility] [address] [place] [address] Gynecology Office/Clinic Not casa 06-20-2019 Gynecology Office/Clinic Note Chief Complaint Several months had itching. States she has sensitive skin,, No discharge, Denies odor. Itching can be on outside and inside. More at night. Obstetric History History (0,0,0,0) No previous pregnancies history have been recorded History of Present Illness New pt here c/o vaginal and vulvar itching x 3 months. She denies any abnormal discharge or odor. Pt does shave in that area. She has noticed redness but no lesions. She said her family doctor looked at it and gave her lotion and diflucan. She states it did not help. Review of Systems PHQ Score Initial Depression Screen Score: 0 Constitutional: No fever, No chills, No sweats, No weakness. Respiratory: No shortness of breath, No cough. Cardiovascular: No chest pain, Noperipheral edema. Physical Exam Vitals & Measurements BP: 116/70 HT: 165.5 cm WT: 65.3 kg BMI: 23.84 General Exam: Constitutional: alert, no acute distress, well hydrated, well developed, well nourished. Skin: normal color, no rashes, no lesions, no unusual bruising. Head: atraumatic, normocephalic. Eyes: EOM intact, no nystagmus, no icterus. Ears: no external deformities, gross hearing intact. Mouth: normal dentition Respiratory: no respiratory distress. Abdomen: nondistended, nontender, no guarding, no masses. Spine: normal mobility, no deformities. Extremities: no deformities, no clubbing, no cyanosis, no edema. Neuro: normal, cranial nn II-XII grossly intact, sensation intact, motor intact, station & gait normal. Psych: oriented to all spheres, affect and mood appropriate, normal interaction, good eye contact. Pelvic Exam: Vulva: normal appearance, normal hair distribution, +erythema, excoriations Urethra: normal, no masses, non-tender, no discharge. Bladder: normal, non-tender, non-distended. Vagina: normal, rugated, white thick discharge, no lesions, no masses, adequate pelvic support. Cervix: normal, midposition, no motion tenderness, no lesions. Uterus: smooth, mobile, non-tender, adequate support, anteverted. Adnexa: normal, no masses, mobile, nontender Assessment/Plan 1. 19 yo female w/vaginitis likely secondary to rodrick 2. Recommend Diflucan x 2 and Lotrisone 3. Nu swab done 4. f/u for swab results over the phone 5. f/u in 2 wks if no improvement 1. Vaginitis (N76.0: Acute vaginitis) Orders: betamethasone-clotri mazole topical, 1 oziel, Topical, BID, 15 gram, Refill(s) 0, [facility], 165.5, cm, 06/20/19 13:05:00 EDT, Height/Length Measured, 65.3, kg, 06/20/19 13:05:00 EDT, Weight Measured fluconazole, 150 mg = 1 tab(s), Oral, q72hr, # 2 tab(s), Refills(s) 0, Pharmacy: [facility], 165.5, cm, 06/20/19 13:05:00 EDT, Height/Length Measured, 65.3, kg, 06/20/19 13:05:00 EDT, Weight Measured Follow-up With When Contact Information Madhuri Vilchis DO In 2 weeks [address] [place] [address]- [email or web address] Additional Instructions: Problem List/Past Medical History Ongoing No qualifying data Historical No qualifying data Medications Diflucan 150 mg Tab, 150 mg= 1 tab(s), Oral, q72hr drospirenone/ethinyl estradiol/levomefola te biphasic 3 mg-0.03 mg-0.451 mg oral tablet, 1 tab(s), Oral, Daily Lotrisone topical cream, 1 oziel, Topical, BID sertraline 50 mg Tab, 50 mg= 1 tab(s), Oral, Daily Allergies No Known Medication Allergies Social History Alcohol - Denies Alcohol Use, 06/20/2019 Substance Abuse - Denies Substance Abuse, 06/20/2019 Tobacco - Denies Tobacco Use, 06/20/2019 Never (less than 100 in lifetime) Tobacco Use:. Never Smokeless Tobacco Use:., 06/20/2019 Family History Hypertension: Father. Primary malignant neoplasm of colon: Grandparent. Normal [facility] Comment on above: Result Comment: Elec tronically Signed By: Madhuri Vilchis DO\.br\Date and Time Signed: 06/20/19 13:37 EDT Vital Signs Date Time Vital Sign Value Performing Clinician Faci lity 09-21-2024 16:03-0400 Body mass index (BMI) [Ratio] 32.1 kg/m2 Mandy Patel DO Work Phone: [facility] 09-21-2024 16:03-0400 Body weight 84.82 kg Mandy Patel DO Work Phone: [facility] 09-21-2024 16:03-0400 Diastolic blood pressure 74 mm[Hg] Mandy Patel DO Work Phone: [facility] 09-21-2024 16:03-0400 Systolic blood pressure 124 mm[Hg] Mandy Patel DO Work Phone: [facility] 09-11-2024 09:10-0400 Body temperature 98.5 [degF] Moe Mcmillan DO Work Phone: [facility] 09-11-2024 09:10-0400 Diastolic blood pressure 85 mm[Hg] Moe Mcmillan DO Work Phone: [facility] 09-11-2024 09:10-0400 Heart rate 119 /min Moe Mcmillan DO Work Phone: [facility] 09-11-2024 09:10-0400 Respiratory rate 16 /min Moe Mcmillan DO Work Phone: [facility] 09-11-2024 09:10-0400 SaO2% (BldA) [Mass fraction] 96 % Moe Baughkenzie DO Work Phone: [facility] 09-11-2024 09:10-0400 Systolic blood pressure 132 mm[Hg] Moe Mcmillan DO Work Phone: [facility] 09-09-2024 05:21-0400 Body height 160.02 cm Moe Mcmillan DO Work Phone: [facility] 09-09-2024 05:21-0400 Body weight 95.25 kg Moe Mcmillan DO Work Phone: [facility] 09-07-2024 14:14-0400 Body mass index (BMI) [Ratio] 35.87 kg/m2 Mandy Patel DO Work Phone: [facility] 09-07-2024 14:14-0400 Body weight 94.8 kg Mandy Patel DO Work Phone: [facility] 09-07-2024 14:14-0400 Diastolic blood pressure 82 mm[Hg] Mandy Patel DO Work Phone: [facility] 09-07-2024 14:14-0400 Systolic blood pressure 138 mm[Hg] Mandy Patel DO Work Phone: [facility] 09-01-2024 14:24-0400 Body temperature 97.3 [degF] Moe Mcmillan DO Work Phone: [facility] 09-01-2024 14:24-0400 Diastolic blood pressure 87 mm[Hg] Moe Mcmillan DO Work Phone: [facility] 09-01-2024 14:24-0400 Heart rate 91 /min Moe Mcmillan DO Work Phone: [facility] 09-01-2024 14:24-0400 Respiratory rate 16 /min Moe Mcmillan DO Work Phone: [facility] 09-01-2024 14:24-0400 SaO2% (BldA) [Mass fraction] 97 % Moe Mcmillan DO Work Phone: [facility] 09-01-2024 14:24-0400 Systolic blood pressure 131 mm[Hg] Moe Mcmillan DO Work Phone: [facility] 09-01-2024 14:10-0400 Body height 160.02 cm Moe Mcmillan DO Work Phone: [facility] 09-01-2024 14:10-0400 Body weight 210 kg Moe Mcmillan DO Work Phone: [facility] 08-31-2024 13:16-0400 Body mass index (BMI) [Ratio] 35.87 kg/m2 Mandy Rinkes DO Work Phone: [facility] 08-31-2024 13:16-0400 Body weight 94.8 kg Mandy Rinkes DO Work Phone: [facility] 08-31-2024 13:16-0400 Diastolic blood pressure 80 mm[Hg] Mandy Rinkes DO Work Phone: [facility] 08-31-2024 13:16-0400 Systolic blood pressure 138 mm[Hg] Mandy Rinkes DO Work Phone: [facility] 08-29-2024 13:57-0400 Body mass index (BMI) [Ratio] 35.87 kg/m2 Mandy Rinkes DO Work Phone: [facility] 08-29-2024 13:57-0400 Body weight 94.8 kg Mandy Rinkes DO Work Phone: [facility] 08-29-2024 13:57-0400 Diastolic blood pressure 80 mm[Hg] Mandy Rinkes DO Work Phone: [facility] 08-29-2024 13:57-0400 Systolic blood pressure 124 mm[Hg] Mandy Rinkes DO Work Phone: [facility] 08-25-2024 10:39-0400 Body mass index (BMI) [Ratio] 36.05 kg/m2 Mandy Rinkes DO Work Phone: [facility] 08-25-2024 10:39-0400 Body weight 95.25 kg Mandy De Jesuskes DO Work Phone: [facility] 08-25-2024 10:39-0400 Diastolic blood pressure 80 mm[Hg] Mandy Rinkes DO Work Phone: [facility] 08-25-2024 10:39-0400 Systolic blood pressure 134 mm[Hg] Mandy Rinkes DO Work Phone: [facility] 08-08-2024 16:16-0400 Body mass index (BMI) [Ratio] 35.53 kg/m2 Mandy Rinkes DO Work Phone: [facility] 08-08-2024 16:16-0400 Body weight 93.89 kg Mandy Rinkes DO Work Phone: [facility] 08-08-2024 16:16-0400 Diastolic blood pressure 76 mm[Hg] Mandy Rinkes DO Work Phone: [facility] 08-08-2024 16:16-0400 Systolic blood pressure 130 mm[Hg] Mandy Rinkes DO Work Phone: [facility] 08-03-2024 14:08-0400 Body height 160.02 cm GAdriana Mcmillan DO Work Phone: [facility] 08-03-2024 14:08-0400 Body mass index (BMI) [Ratio] 37 kg/m2 GAdriana Mcmillan DO Work Phone: [facility] 08-03-2024 14:08-0400 Body weight 94.8 kg GAdriana Mcmillan DO Work Phone: [facility] 08-03-2024 14:08-0400 Diastolic blood pressure 85 mm[Hg] GAdriana Mcmillan DO Work Phone: [facility] 08-03-2024 14:08-0400 Heart rate 95 /min GAdriana Mcmillan DO Work Phone: [facility] 08-03-2024 14:08-0400 Respiratory rate 20 /min Moe Mcmillan DO Work Phone: [facility] 08-03-2024 14:08-0400 SaO2% (BldA) [Mass fraction] 98 % Moe Mcmillan DO Work Phone: [facility] 08-03-2024 14:08-0400 Systolic blood pressure 131 mm[Hg] Moe Mcmillan DO Work Phone: [facility] 07-25-2024 13:46-0400 Body mass index (BMI) [Ratio] 34.84 kg/m2 Mandy Patel DO Work Phone: [facility] 07-25-2024 13:46-0400 Body weight 92.08 kg Mandy Patel DO Work Phone: [facility] 07-25-2024 13:46-0400 Diastolic blood pressure 72 mm[Hg] Mandy Patel DO Work Phone: [facility] 07-25-2024 13:46-0400 Systolic blood pressure 140 mm[Hg] Mandy Patel DO Work Phone: [facility] 07-22-2024 09:25-0400 Body height 160.02 cm Moe Mcmillan DO Work Phone: [facility] 07-22-2024 09:25-0400 Body weight 92 kg Moe Mcmillan DO Work Phone: [facility] 07-22-2024 09:24-0400 Body temperature 98.5 [degF] Moe Mcmillan DO Work Phone: [facility] 07-22-2024 09:24-0400 Diastolic blood pressure 81 mm[Hg] Moe Mcmillan DO Work Phone: [facility] 07-22-2024 09:24-0400 Heart rate 122 /min Moe Mcmillan DO Work Phone: [facility] 07-22-2024 09:24-0400 Respiratory rate 18 /min Moe Mcmillan DO Work Phone: [facility] 07-22-2024 09:24-0400 SaO2% (BldA) [Mass fraction] 98 % Moe Mcmillan DO Work Phone: [facility] 07-22-2024 09:24-0400 Systolic blood pressure 133 mm[Hg] Moe Mcmillan DO Work Phone: [facility] 07-11-2024 14:46-0400 Body mass index (BMI) [Ratio] 34.33 kg/m2 Mandy Patel DO Work Phone: [facility] 07-11-2024 14:46-0400 Body weight 90.72 kg Mandy Patel DO Work Phone: [facility] 07-11-2024 14:46-0400 Diastolic blood pressure 70 mm[Hg] Mandy Patel DO Work Phone: [facility] 07-11-2024 14:46-0400 Systolic blood pressure 122 mm[Hg] Mandy Patel DO Work Phone: [facility] 07-02-2024 07:26-0400 Body temperature 98.3 [degF] Moe Mcmillan DO Work Phone: [facility] 07-02-2024 07:26-0400 Diastolic blood pressure 72 mm[Hg] Moe Mcmillan DO Work Phone: [facility] 07-02-2024 07:26-0400 Heart rate 91 /min Moe Mcmillan DO Work Phone: [facility] 07-02-2024 07:26-0400 Respiratory rate 18 /min Moe Mcmillan DO Work Phone: [facility] 07-02-2024 07:26-0400 SaO2% (BldA) [Mass fraction] 95 % Moe Mcmillan DO Work Phone: [facility] 07-02-2024 07:26-0400 Systolic blood pressure 122 mm[Hg] Moe Mcmillan DO Work Phone: [facility] 07-01-2024 22:16-0400 Body height 160.02 cm Moe Mcmillan DO Work Phone: [facility] 07-01-2024 22:16-0400 Body weight 90.26 kg Moe Mcmillan DO Work Phone: [facility] 06-27-2024 14:13-0400 Body mass index (BMI) [Ratio] 33.99 kg/m2 Mandy Patel DO Work Phone: [facility] 06-27-2024 14:13-0400 Body weight 89.81 kg Mandy Patle DO Work Phone: [facility] 06-27-2024 14:13-0400 Diastolic blood pressure 70 mm[Hg] Mandy Patel DO Work Phone: [facility] 06-27-2024 14:13-0400 Systolic blood pressure 138 mm[Hg] Mandy Patel DO Work Phone: [facility] 06-27-2024 08:20-0400 Body temperature 98.1 [degF] Moe Mcmillan DO Work Phone: [facility] 06-27-2024 08:20-0400 Diastolic blood pressure 73 mm[Hg] Moe Mcmillan DO Work Phone: [facility] 06-27-2024 08:20-0400 Heart rate 99 /min Moe Mcmillan DO Work Phone: [facility] 06-27-2024 08:20-0400 Respiratory rate 16 /min Moe Mcmillan DO Work Phone: [facility] 06-27-2024 08:20-0400 SaO2% (BldA) [Mass fraction] 97 % Moe Mcmillan DO Work Phone: [facility] 06-27-2024 08:20-0400 Systolic blood pressure 119 mm[Hg] Moe Mcmillan DO Work Phone: [facility] 06-20-2024 13:34-0400 Diastolic blood pressure 83 mm[Hg] Moe Mcmillan DO Work Phone: [facility] 06-20-2024 13:34-0400 Heart rate 98 /min Moe Mcmillan DO Work Phone: [facility] 06-20-2024 13:34-0400 Respiratory rate 18 /min Moe Mcmillan DO Work Phone: [facility] 06-20-2024 13:34-0400 SaO2% (BldA) [Mass fraction] 98 % Moe Mcmillan DO Work Phone: [facility] 06-20-2024 13:34-0400 Systolic blood pressure 129 mm[Hg] Moe Mcmillan DO Work Phone: [facility] 05-30-2024 14:10-0400 Body mass index (BMI) [Ratio] 32.61 kg/m2 Mandy Patel DO Work Phone: [facility] 05-30-2024 14:10-0400 Body weight 86.18 kg Mandy De Jesuskes DO Work Phone: [facility] 05-30-2024 14:10-0400 Diastolic blood pressure 74 mm[Hg] Mandy De Jesuskes DO Work Phone: [facility] 05-30-2024 14:10-0400 Systolic blood pressure 130 mm[Hg] Mandy De Jesuskes DO Work Phone: [facility] 05-25-2024 14:32-0400 Body weight 87.08 kg Moe Mcmillan DO Work Phone: [facility] 05-25-2024 14:32-0400 Diastolic blood pressure 86 mm[Hg] Moe Mcmillan DO Work Phone: [facility] 05-25-2024 14:32-0400 Heart rate 90 /min Moe Mcmillan DO Work Phone: [facility] 05-25-2024 14:32-0400 Respiratory rate 20 /min Moe Mcmillan DO Work Phone: [facility] 05-25-2024 14:32-0400 SaO2% (BldA) [Mass fraction] 96 % Moe Mcmillan DO Work Phone: [facility] 05-25-2024 14:32-0400 Systolic blood pressure 131 mm[Hg] Moe Mcmillan DO Work Phone: [facility] 04-04-2024 14:13-0500 Body mass index (BMI) [Ratio] 31.24 kg/m2 Mandy Rinkes DO Work Phone: [facility] 04-04-2024 14:13-0500 Body weight 82.56 kg Mandy Rinkes DO Work Phone: [facility] 04-04-2024 14:13-0500 Diastolic blood pressure 80 mm[Hg] Mandy Rinkes DO Work Phone: [facility] 04-04-2024 14:13-0500 Systolic blood pressure 124 mm[Hg] Mandy Rinkes DO Work Phone: [facility] 03-07-2024 13:16-0500 Body mass index (BMI) [Ratio] 30.55 kg/m2 Mandy Rinkes DO Work Phone: [facility] 03-07-2024 13:16-0500 Body weight 80.74 kg Mandy Rinkes DO Work Phone: [facility] 03-07-2024 13:16-0500 Diastolic blood pressure 70 mm[Hg] Mandy Rinkes DO Work Phone: [facility] 03-07-2024 13:16-0500 Systolic blood pressure 122 mm[Hg] Mandy Rinkes DO Work Phone: [facility] 02-23-2024 14:58-0500 Body temperature 98.1 [degF] Moe Mcmillan DO Work Phone: [facility] 02-23-2024 14:58-0500 Body weight 82.1 kg Moe Mcmillan DO Work Phone: [facility] 02-23-2024 14:58-0500 Diastolic blood pressure 82 mm[Hg] Moe Mcmillan DO Work Phone: [facility] 02-23-2024 14:58-0500 Heart rate 73 /min Moe Mcmillan DO Work Phone: [facility] 02-23-2024 14:58-0500 Respiratory rate 20 /min Moe Mcmillan DO Work Phone: [facility] 02-23-2024 14:58-0500 SaO2% (BldA) [Mass fraction] 100 % Moe Mcmillan DO Work Phone: [facility] 02-23-2024 14:58-0500 Systolic blood pressure 125 mm[Hg] Moe Mcmillan DO Work Phone: [facility] 12-21-2023 10:44-0500 Body height 160 cm Jessica Ortega MD Work Phone: [facility] 12-21-2023 10:44-0500 Body mass index (BMI) [Ratio] 31.53 kg/m2 Jessica Ortega MD Work Phone: [facility] 12-21-2023 10:44-0500 Body weight 80.74 kg Jessica Ortega MD Work Phone: [facility] 12-13-2023 13:56-0400 Body height 160.7 cm Marina Baptiste Work Phone: [facility] 12-13-2023 13:56-0400 Body mass index (BMI) [Ratio] 31.85 kg/m2 Marina Arthur MD Work Phone: [facility] 12-13-2023 13:56-0400 Body weight 82.2 kg Marina Baptiste Work Phone: [facility] 12-13-2023 13:56-0400 Diastolic blood pressure 95 mm[Hg] Marina Arthur MD Work Phone: [facility] 12-13-2023 13:56-0400 Systolic blood pressure 139 mm[Hg] Marina Arthur MD Work Phone: [facility] 10-20-2023 16:02-0400 Body height 162.6 cm Anette Mcmillan DO Work Phone: [facility] 10-20-2023 16:02-0400 Body mass index (BMI) [Ratio] 30.38 kg/m2 Anette Mcmillan DO Work Phone: [facility] 10-20-2023 16:02-0400 Body temperature 97.3 [degF] Anette Mcmillan DO Work Phone: [facility] 10-20-2023 16:02-0400 Body weight 80.29 kg Anette Mcmillan DO Work Phone: [facility] 10-20-2023 16:02-0400 Diastolic blood pressure 80 mm[Hg] Anette Mcmillan DO Work Phone: [facility] 10-20-2023 16:02-0400 Heart rate 90 /min Anette Mcmillan DO Work Phone: [facility] 10-20-2023 16:02-0400 SaO2% (BldA) [Mass fraction] 96 % Anette Mcmillan DO Work Phone: [facility] 10-20-2023 16:02-0400 Systolic blood pressure 118 mm[Hg] Anette Mcmillan DO Work Phone: [facility] 08-04-2023 15:00-0400 Body temperature 97.8 [degF] DO Moe Mcmillan Work Phone: [facility] 08-04-2023 15:00-0400 Body weight 79.37 kg DO Moe Mcmillan Work Phone: [facility] 08-04-2023 15:00-0400 Diastolic blood pressure 92 mm[Hg] DO Moe Mcmillan Work Phone: [facility] 08-04-2023 15:00-0400 Heart rate 67 /min DO Moe Mcmillan Work Phone: [facility] 08-04-2023 15:00-0400 Respiratory rate 20 /min DO Moe Mcmillan Work Phone: [facility] 08-04-2023 15:00-0400 SaO2% (BldA) [Mass fraction] 97 % DO Moe Mcmillan Work Phone: [facility] 08-04-2023 15:00-0400 Systolic blood pressure 139 mm[Hg] DO Moe Mcmillan Work Phone: [facility] 07-14-2023 14:23-0400 Body temperature 97.2 [degF] DO Moe Mcmillan Work Phone: [facility] 07-14-2023 14:23-0400 Body weight 80.28 kg DO Moe Mcmillan Work Phone: [facility] 07-14-2023 14:23-0400 Diastolic blood pressure 87 mm[Hg] DO Moe Mcmillan Work Phone: [facility] 07-14-2023 14:23-0400 Heart rate 72 /min DO Moe Mcmillan Work Phone: [facility] 07-14-2023 14:23-0400 Respiratory rate 16 /min DO Moe Mcmillan Work Phone: [facility] 07-14-2023 14:23-0400 SaO2% (BldA) [Mass fraction] 9 % DO Moe Mcmillan Work Phone: [facility] 07-14-2023 14:23-0400 Systolic blood pressure 133 mm[Hg] DO Moe Mcmillan Work Phone: [facility] 01-28-2023 21:19-0500 Diastolic blood pressure 80 mm[Hg] DO Moe Mcmillan Work Phone: [facility] 01-28-2023 21:19-0500 Heart rate 88 /min DO Moe Mcmillan Work Phone: [facility] 01-28-2023 21:19-0500 Respiratory rate 20 /min DO Moe Mcmillan Work Phone: [facility] 01-28-2023 21:19-0500 SaO2% (BldA) [Mass fraction] 96 % DO Moe Mcmillan Work Phone: [facility] 01-28-2023 21:19-0500 Systolic blood pressure 123 mm[Hg] DO Moe Mcmillan Work Phone: [facility] 01-28-2023 17:26-0500 Body height 160.02 cm DO Moe Mcmillan Work Phone: [facility] 01-28-2023 17:26-0500 Body temperature 97.9 [degF] DO Moe Mcmillan Work Phone: [facility] 01-28-2023 17:26-0500 Body weight 77.7 kg DO Moe Mcmillan Work Phone: [facility] 12-18-2020 15:00-0400 Body height 160.02 cm Joby Sparks Other [employer] [facility] Other 12-18-2020 15:00-0400 Body mass index (BMI) [Ratio] 29.76 kg/m2 Joby Sparks Other [employer] Other 12-18-2020 15:00-0400 Body weight 76.2 kg Joby Sparks Other [employer] Other 12-18-2020 15:00-0400 Diastolic blood pressure 79 mm[Hg] Joby Sparks Other [employer] Other 12-18-2020 15:00-0400 Systolic blood pressure 113 mm[Hg] Joby Sparks Other [employer] Other Encounters Encounter Date Encounter Type Care Provider Facility Start: 09-21-2024 End: 09-21-2024 care visit Mandy Patel DO Work Phone: [facility] Comment on above: anxiety ( [facility]) (Primary Dx); Acute vulvitis Start: 09-21-2024 End: 09-21-2024 ambulatory MANDY PATEL Not Available Start: 09-14-2024 End: 09-14-2024 Patient encounter procedure Andrew De La Rosa Aden - Visit Work Phone: Start: 09-14-2024 End: 09-14-2024 ambulatory Moe Dickinson Lupiskenzie DO Work Phone: [facility] [employer] Work Phone: Start: 09-12-2024 End: 09-12-2024 Patient encounter procedure Andrew Greshamo Aden - Visit Work Phone: Start: 09-12-2024 End: 09-12-2024 ambulatory Moe Mcmillan DO Work Phone: [facility] [employer] Work Phone: Start: 09-10-2024 End: 09-10-2024 External Result Encounter Corina Hernandez MD Work Phone: [facility] External Department Unsolicited Start: 09-10-2024 End: 09-10-2024 External Result Encounter Corina Hernandez MD Work Phone: [facility] External Department Unsolicited Start: 09-09-2024 End: 09-09-2024 External Result Encounter Corina Hernandez MD Work Phone: [facility] External Department Unsolicited Start: 09-09-2024 End: 09-09-2024 External Result Encounter Corina Hernandez MD Work Phone: [facility] External Department Unsolicited Start: 09-08-2024 End: 09-11-2024 Evaluation and management of inpatient -[place]A Hernandez -[facility] Work Phone: Start: 09-08-2024 End: 09-10-2024 External Result Encounter Corina Hernandez MD Work Phone: [facility] External Department Unsolicited Start: 09-08-2024 End: 09-10-2024 External Result Encounter Corina Hernandez MD Work Phone: [facility] External Department Unsolicited Start: 09-07-2024 End: 09-07-2024 Bamboo flowsheet Mandy E Rinkes DO Work Phone: [facility] Start: 09-07-2024 End: 09-07-2024 Bamboo flowsheet Mandy E Rinkes DO Work Phone: [facility] Start: 09-07-2024 End: 09-07-2024 flow sheet Mandy E Rinkes DO Work Phone: [facility] Comment on above: 38 weeks gestation o f ([facility]) Start: 09-07-2024 End: 09-07-2024 ambulatory MANDY E RINKES Not Available Start: 09-01-2024 End: 09-02-2024 External Result Encounter Corina Hernandez MD Work Phone: [facility] External Department Unsolicited Start: 09-01-2024 End: 09-02-2024 External Result Encounter Corina Hernandez MD Work Phone: [facility] External Department Unsolicited Start: 09-01-2024 End: 09-01-2024 Patient encounter procedure -[facility] Corina Hernandez -[facility] - O/P Start: 09-01-2024 End: 09-01-2024 ambulatory Moe Mcmillan DO Work Phone: [facility] Work Phone: Start: 08-31-2024 End: 08-31-2024 Bamboo flowsheet Mandy E Rinkes DO Work Phone: [facility] Start: 08-31-2024 End: 08-31-2024 Bamboo flowsheet Mandy E Rinkes DO Work Phone: [facility] Start: 08-31-2024 End: 08-31-2024 flow sheet Mandy E Rinkes DO Work Phone: [facility] Comment on above: 37 weeks gestation o f ([facility]) Start: 08-31-2024 End: 08-31-2024 Patient encounter procedure [facility] Nurse [facility] Comment on above: 37 weeks gestation o f ([facility]); Decreased movements in third trimester, single or unspecified fetus ([facility]) Start: 08-31-2024 End: 08-31-2024 ambulatory MANDY E RINKES Not Available Start: 08-29-2024 End: 08-29-2024 Bamboo flowsheet Mandy E Rinkes DO Work Phone: [facility] Start: 08-29-2024 End: 08-29-2024 Bamboo flowsheet Mandy E Rinkes DO Work Phone: [facility] Start: 08-29-2024 End: 08-29-2024 flow sheet Mandy E Rinkes DO Work Phone: [facility] Comment on above: 37 weeks gestation o f ([facility]) Start: 08-29-2024 End: 08-29-2024 ambulatory MANDY E RINKES Not Available Start: 08-28-2024 End: 08-28-2024 Ching Mcmillan DO Work Phone: [facility] FM [id number] Comment on above: Depression, unspecif ied depression type ; Mixed anxiety and depressive disorder Start: 08-25-2024 End: 08-25-2024 Bamboo flowsheet Mandy Osbaldo Rinkes DO Work Phone: [facility] Start: 08-25-2024 End: 08-25-2024 Bamboo flowsheet Mandy Roblero Rinkes DO Work Phone: [facility] Start: 08-25-2024 End: 08-25-2024 Departed Referred Mandy E Jorge DO -Lab Main [place] Work Phone: Start: 08-25-2024 End: 08-25-2024 flow sheet Mandy Roblero Rinkes DO Work Phone: [facility] Comment on above: 36 weeks gestation o f ([facility]); screening for streptococcus B ([facility]) Start: 08-25-2024 End: 08-25-2024 ambulatory Moe Mcmillan DO Work Phone: [facility] Work Phone: Start: 08-08-2024 End: 08-08-2024 flow sheet Mandy Roblero Travkes DO Work Phone: [facility] Comment on above: 34 weeks gestation o f ([facility]) Start: 08-08-2024 End: 08-08-2024 ambulatory MANDY Roblero TRAVPEGGY Not Available Start: 08-03-2024 Registered Recurring Pippa stevens MD [facility] Acute Work Phone: Start: 08-03-[address] Fa cility:[facility] Start: 08-03-2024 End: 08-03-2024 Patient encounter procedure Pippa Lane MD [facility] Ambulatory Work Phone: Start: 08-02-2024 End: 08-02-2024 Refill Anette Mcmillan DO Work Phone: [id number] Comment on above: Depression, unspecif ied depression type ; Mixed anxiety and depressive disorder Start: 07-25-2024 End: 07-25-2024 flow sheet Mandy Osbaldo Rinkes DO Work Phone: [facility] Comment on above: 32 weeks gestation o f Start: 07-25-2024 End: 07-25-2024 ambulatory MANDY E RINKES Not Available Start: 07-22-2024 End: 07-22-2024 Emergency department patient visit Moe Mcmillan DO Work Phone: [facility]-Emergency Room Work Phone: Start: 07-11-2024 End: 07-11-2024 flow sheet Mandy Roblero Rinkes DO Work Phone: [facility] Comment on above: 30 weeks gestation o f Start: 07-11-2024 End: 07-11-2024 ambulatory MANDY Roblero RINKES Not Available Start: 07-11-2024 End: 07-11-2024 Bamboo flowsheet Mandy E Rinkes DO Work Phone: [facility] Start: 07-11-2024 End: 07-11-2024 Bamboo flowsheet Mandy Roblero Rinkes DO Work Phone: [facility] Start: 07-02-2024 End: 07-02-2024 External Result Encounter Corina Hernandez MD Work Phone: [facility] External Department Unsolicited Start: 07-02-2024 End: 07-02-2024 External Result Encounter Corina Hernandez MD Work Phone: [facility] External Department Unsolicited Start: 07-01-2024 End: 07-02-2024 Patient encounter procedure Moe Mcmillan DO Work Phone: [facility] Labor - O/P Start: 07-01-2024 End: 07-02-2024 ambulatory Moe Mcmillan Facility:[facility] Start: 07-01-2024 End: 07-03-2024 External Result Encounter Corina Hernandez MD Work Phone: [facility] External Department Unsolicited Start: 07-01-2024 End: 07-03-2024 External Result Encounter Corina Hernandez MD Work Phone: [facility] External Department Unsolicited Start: 06-27-2024 End: 06-27-2024 flow sheet Mandy E Rinkes DO Work Phone: [facility] Comment on above: 28 weeks gestation o f Start: 06-27-2024 End: 06-27-2024 ambulatory MANDY E RINKES Not Available Start: 06-27-2024 Registered Recurring Moe Mcmillan DO Work Phone: [facility] Work Phone: Start: 06-24-2024 End: 06-24-2024 Patient encounter procedure Moe Mcmillan DO Work Phone: [facility]-Lab [facility] [place] Work Phone: Start: 06-24-2024 End: 06-24-2024 ambulatory Moe Mcmillan DO Work Phone: [facility] Work Phone: Start: 06-20-2024 Registered Recurring Moe Mcmillan DO Work Phone: [facility] Work Phone: Start: 05-30-2024 End: 05-30-2024 flow sheet Mandy E Rinkes DO Work Phone: [facility] Comment on above: 24 weeks gestation o f ; Screening for diabetes mellitus (DM) Start: 05-30-2024 End: 05-30-2024 ambulatory MANDY E RINKES Not Available Start: 05-30-2024 End: 05-30-2024 Bamboo flowsheet Mandy E Rinkes DO Work Phone: [facility] Start: 05-30-2024 End: 05-30-2024 Bamboo flowsheet Mandy E Rinkes DO Work Phone: [facility] Start: 05-25-2024 End: 05-25-2024 Patient encounter procedure Moe Larsoncarin DO Work Phone: [facility] Work Phone: Start: 05-08-2024 End: 05-08-2024 ambulatory ANETTE MCMILLAN Not Available Start: 05-02-2024 End: 05-02-2024 ambulatory MANDY E RINKES Not Available Start: 04-04-2024 End: 04-04-2024 flow sheet Mandy E Rinkes DO Work Phone: [facility] Comment on above: 16 weeks gestation o f Start: 04-04-2024 End: 04-04-2024 ambulatory MANDY E RINKES Not Available Start: 04-04-2024 End: 04-04-2024 Bamboo flowsheet Mandy E Rinkes DO Work Phone: [facility] Start: 04-04-2024 End: 04-04-2024 Bamboo flowsheet Mandy E Rinkes DO Work Phone: [facility] Start: 03-07-2024 End: 03-07-2024 ambulatory MANDY E RINKES Not Available Start: 03-07-2024 End: 03-07-2024 flow sheet Mandy E Rinkes DO Work Phone: [facility] Comment on above: GA: 12w2d Start: 03-01-2024 End: 03-01-2024 ambulatory SELF Facility:[facility] Start: 03-01-2024 End: 03-01-2024 Office outpatient visit 25 minutes Marina Arthur MD Work Phone: [facility] End[facility]inology Inf[facility] Comment on above: PCOS (polycystic ova balwinder syndrome) (Primary Dx) Start: 02-23-2024 Registered Recurring Moe Mcmillan DO Work Phone: [facility] Work Phone: Start: 02-23-2024 End: 02-23-2024 ambulatory Moe Mcmillan DO Work Phone: [facility] Work Phone: Start: 02-23-2024 End: 02-23-2024 Patient encounter procedure Moe Mcmillan DO Work Phone: [facility] Work Phone: Start: 02-21-2024 End: 02-21-2024 ambulatory MANDY PATEL Not Available Start: 02-01-2024 End: 02-01-2024 Nursing evaluation of patient and report [employer] [facility] Rej Work Phone: Reproductive Endocrinology Infertility Comment on above: Early stage of pregn mikel Start: 02-01-2024 End: 02-01-2024 ambulatory SARA CAMPBELL Facility:[facility] Start: 01-21-2024 End: 01-21-2024 ambulatory Sara Campbell 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 JOCKEY Work Phone: [facility]inology [facility] Comment on above: Early stage of pregn mikel (Primary Dx) Start: 01-21-2024 End: 01-21-2024 Telemedicine consultation with patient Sara Campbell ANNA.RAMP JOCKEY Work Phone: [facility] Start: 01-20-2024 End: 01-20-2024 flow sheet [facility] Comment on above: GA: 5w4d Start: 01-20-2024 End: 01-20-2024 ambulatory MANDY PATEL Not Available Start: 01-18-2024 End: 01-18-2024 ambulatory SARA CAMPBELL Facility:[facility] Start: 01-17-2024 End: 01-18-2024 ambulatory Sara Campbell 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 JOCKEY Work Phone: [facility] Comment on above: Start: 01-03-2024 End: 01-04-2024 E-mail encounter from caregiver Sara Campbell RAMP JOCKEY Work Phone: [facility] Start: 01-03-2024 End: 01-04-2024 ambulatory Sara Campbell 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 JOCKEY Work Phone: [facility] Comment on above: Female infertility ( Primary Dx) IUI Checklist/Next s teps Start: 01-03-2024 End: 01-03-2024 Telemedicine consultation with patient Sara Campbell 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 JOCKEY Work Phone: [facility] Start: 12-21-2023 End: 12-21-2023 ambulatory [facility] Facility:[facility] Start: 12-21-2023 Encounter for preprocedural laboratory examination SARA CAMPBELL [facility] Start: 12-21-2023 End: 12-21-2023 Patient encounter procedure Jessica Ortega MD Work Phone: [facility]ductive Endocrinology Infertility Comment on above: Fertility testing (P rimary Dx); Pre-procedural laboratory examination Start: 12-21-2023 End: 12-21-2023 Patient encounter status Jessica Ortega MD Work Phone: [facility] Start: 12-13-2023 End: 12-13-2023 [facility] Facility:[facility] Start: 12-13-2023 End: 12-13-2023 Office outpatient new 45 minutes Marina Arthur MD Work Phone: Reproductive Endocrinology Infertility Comment on above: Female infertility ( Primary Dx); Fertility testing; Procreative management counseling; Special screening examination for infectious diseases; Vitamin D deficiency; Encounter of female for testing for genetic disease carrier status for procreative management; Irregular menses Start: 12-13-2023 End: 12-13-2023 ambulatory SELF Facility:[facility] Start: 11-01-2023 End: 11-01-2023 Patient encounter procedure DO Moe Mcmillan Work Phone: [facility] [place] Work Phone: Start: 11-01-2023 End: 11-01-2023 ambulatory DO Moe Mcmillan Work Phone: [facility] Work Phone: Start: 10-20-2023 End: 10-20-2023 Office outpatient visit 15 minutes Anette Mcmillan DO Work Phone: [phone] Comment on above: Depression, unspecif ied depression type (CMS/HCC) (Primary Dx); Mixed anxiety and depressive disorder; Panic disorder (CMS/HCC); PMDD (premenstrual dysphoric disorder) (CMS/HCC) Start: 10-20-2023 End: 10-20-2023 ambulatory ANETTE MCMILLAN Not Available Start: 10-20-2023 End: 10-20-2023 Bamboo flowsheet Anette Mcmillan DO Work Phone: [facility] Start: 10-20-2023 End: 10-20-2023 Bamboo flowsheet Anette Baughkenzie DO Work Phone: [facility] Start: 09-27-2023 End: 09-27-2023 ambulatory DO Moe Mcmillan Work Phone: [facility] Work Phone: Start: 09-27-2023 End: 09-27-2023 Patient encounter procedure DO Moe Mcmillan Work Phone: [facility] [address] Work Phone: Start: 09-16-2023 End: 09-16-2023 Admission to same day surgery center DO Moe Mcmillan Work Phone: [facility] Work Phone: Start: 09-16-2023 End: 09-16-2023 ambulatory DO Moe Mcmillan Work Phone: [facility] Work Phone: Start: 09-10-2023 End: 09-10-2023 ambulatory Mirna Aguilera Facility: [place] Start: 09-10-2023 End: 09-10-2023 Patient encounter procedure Mirna Aguilera [facility] [place] Start: 09-04-2023 End: 09-04-2023 ambulatory DO Moe Mcmillan Work Phone: [facility] Work Phone: Start: 09-04-2023 End: 09-04-2023 Patient encounter procedure DO Moe Mcmillan Work Phone: [facility] [place] Work Phone: Start: 08-07-2023 End: 08-07-2023 ambulatory DO Moe Mcmillan Work Phone: [facility] Work Phone: Start: 08-07-2023 End: 08-07-2023 Patient encounter procedure DO Moe Mcmillan [facility] [place] Work Phone: Start: 08-04-2023 End: 08-04-2023 ambulatory DO Moe Mcmillan Work Phone: [facility] Work Phone: Start: 08-04-2023 End: 08-04-2023 Patient encounter procedure DO Moe Mcmillan Work Phone: [facility] Work Phone: Start: 08-04-2023 Registered Recurring DO Moe Mcmillan Work Phone: [facility] Work Phone: Start: 07-14-2023 End: 07-14-2023 ambulatory DO Moe Mcmillan Work Phone: [facility] Work Phone: Start: 07-14-2023 End: 07-14-2023 Patient encounter procedure DO Moe Mcmillan Work Phone: [facility] Work Phone: Start: 07-14-2023 Registered Recurring DO Moe Mcmillan Work Phone: [facility] Work Phone: Start: 02-11-2023 End: 02-11-2023 ambulatory Mirna Aguilera Facility:[facility] Start: 02-11-2023 End: 02-11-2023 Lab Drop off Mirna Aguilera [facility] Start: 02-11-2023 End: 02-11-2023 ambulatory Mirna Aguilera Facility:[facility] Start: 02-11-2023 End: 02-11-2023 Patient encounter procedure Mirna Aguilera [facility] [place] Start: 01-29-2023 ambulatory Mirna Aguilera Facility:[facility] Start: 01-28-2023 End: 01-28-2023 Emergency department patient visit DO Moe Mcmillan Work Phone: [facility] Work Phone: Start: 01-15-2022 End: 01-15-2022 ambulatory DO Moe Mcmillan Work Phone: [facility] Work Phone: Start: 01-15-2022 End: 01-15-2022 Patient encounter procedure DO Moe Mcmillan Work Phone: [facility] COVID Testing Start: 01-05-2022 End: 01-05-2022 ambulatory PHILL DANNA Facility:[facility] Start: 10-24-2021 End: 10-24-2021 ambulatory PHILL DANNA Facility:[facility] Start: 07-02-2021 End: 07-03-2021 ambulatory PHILL DANNA Facility:[facility] Start: 12-18-2020 End: 12-18-2020 ambulatory Joby Sparks Other [facility] Other Start: 12-18-2020 Patient encounter procedure oJby Sparks [facility] Start: 02-22-2018 End: 02-22-2018 Patient encounter procedure JOSHUA ROSE Facility:[facility] Start: 01-11-2018 End: 01-11-2018 Patient encounter procedure JOSHUA ROSE Facility:[facility] Procedures Date Procedure Procedure Detail Performing Clinician Start: 09-10-2024 Complete blood count with white cell differential, automated Corina Hernandez MD Work Phone: Start: 09-09-2024 Complete blood count with white cell differential, automated Corina Hernandez MD Work Phone: Start: 09-08-2024 Complete blood count with white cell differential, automated Corina Hernandez MD Work Phone: Start: 09-08-2024 RPR W/RFX TO QUANT & TP ABS ([facility]) Corina Hernandez MD Work Phone: Start: 09-08-2024 Culture bacterial quanttative colony count urine Corina Hernandez MD Work Phone: Start: 09-08-2024 OB URINE DRUG SCREEN (NO THC) oCrina Hernandez MD Work Phone: Start: 09-08-2024 Urnls dip stick/tabl et rgnt auto w/o microscopy Corina Hernandez MD Work Phone: Start: 09-08-2024 Urine culture oMe Mcmillan DO Work Phone: Start: 09-07-2024 Urnls dip stick/tabl et rgnt non-auto w/o micrscp Mandy Patel DO Work Phone: Start: 09-01-2024 Comprehensive metabo lic panel Corina Hernandez MD Work Phone: Start: 09-01-2024 Culture bacterial quanttative colony count urine Corina Hernandez MD Work Phone: Start: 09-01-2024 Protein total xcpt refractometry urine Corina Hernandez MD Work Phone: Start: 09-01-2024 Urnls dip stick/tabl et rgnt auto w/o microscopy Corina Hernandez MD Work Phone: Start: 09-01-2024 Urine culture Moe Mcmillan DO Work Phone: Start: 08-31-2024 Urnls dip stick/tabl et rgnt non-auto w/o micrscp Mandy E Rinkes DO Work Phone: Start: 08-29-2024 Urnls dip stick/tabl et rgnt non-auto w/o micrscp Mandy E Rinkes DO Work Phone: Start: 08-25-2024 Streptococcus agalac tiae culture Moe Mcmillan DO Work Phone: Start: 08-25-2024 Urnls dip stick/tabl et rgnt non-auto w/o micrscp Mandy E Rinkes DO Work Phone: Start: 08-08-2024 Urnls dip stick/tabl et rgnt non-auto w/o micrscp Mandy E Rinkes DO Work Phone: Start: 07-25-2024 Urnls dip stick/tabl et rgnt non-auto w/o micrscp Mandy E Rinkes DO Work Phone: Start: 07-22-2024 Streptococcus pyogen es antigen assay Moe Mcmillan DO Work Phone: Start: 07-11-2024 Urnls dip stick/tabl et rgnt non-auto w/o micrscp Mandy E Rinkes DO Work Phone: Start: 07-02-2024 Complete blood count with white cell differential, automated Corina Hernandez MD Work Phone: Start: 07-01-2024 Complete blood count with white cell differential, automated Corina Hernandez MD Work Phone: Start: 07-01-2024 Ultrasonography of abdomen Moe Mcmillan DO Work Phone: Start: 07-01-2024 Culture bacterial quanttative colony count urine Corina Hernandez MD Work Phone: Start: 07-01-2024 Urnls dip stick/tabl et rgnt auto w/o microscopy Corina Hernandez MD Work Phone: Start: 07-01-2024 Urine culture Moe Mcmillan DO Work Phone: Start: 06-27-2024 Urnls dip stick/tabl et rgnt non-auto w/o micrscp Mandy E Rinkes DO Work Phone: Start: 05-30-2024 Urnls dip stick/tabl et rgnt non-auto w/o micrscp Mandy E Rinkes DO Work Phone: Start: 04-04-2024 Urnls dip stick/tabl et rgnt non-auto w/o micrscp Mandy E Rinkes DO Work Phone: Start: 03-07-2024 Urnls dip stick/tabl et rgnt non-auto w/o micrscp Mandy E Rinkes DO Work Phone: Start: 12-21-2023 Urine test visual color cmprsn meths Sara Campbell 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 JOCKEY Work Phone: Start: 12-21-2023 Saline infus sonohysterography w/color doppler Marina Arthur MD Work Phone: Start: 12-13-2023 Iadna chlamydia trac homatis amplified probe tq Marina Arthur MD Work Phone: Start: 12-13-2023 Antibody screen SARA CAMPBELL Comment on above: Order Comment: Speci men Type: BLOOD SPECIMENOrdering Facility: [facility] Address: [address] [place] [address] Performed By: #### T SCR ####CC MAIN BLOOD BANKCLIA [id number] [place] [address] [place] Start: 07-15-2023 Hepatitis B core ant ibody measurement Moe Mcmillan DO Work Phone: Comment on above: Performed at: [place] [id number] Director: Harsha Villanueva PhD, Phone: [phone] Start: 07-15-2023 Human immunodeficien cy virus antibody test Moe Mcmillan DO Work Phone: Comment on above: HIV NegativeHIV-1/HI V-2 antibodies and HIV-1 p24 antigen were NOTdetected. There is no laboratory evidence of HIV infection.Performed at: [address] [id number] Director: Harsha Villanueva PhD, Phone: [phone] Start: 01-28-2023 CT of abdomen and pe lvis without contrast DO Moe Mcmillan Work Phone: Colonoscopy Mirna Aguilera Respiratory Panel (PCR) DO Rebecca Mcmillan Work Phone: Plan of Treatment Date Care Activity Detail Author Start: 05-19-2074 RSV Vaccine (1 - 1-d ose 75+ series) RSV Vaccine (1 - 1-dose 75+ series) [facility] Start: 10-19-2024 End: 10-19-2024 ambulatory 10/19/2024 10:15 AM EDT Visit [facility]ELIC[facility] [address] [place] [phone] Mandy Patel DO [address] [place] [address] [facility] Start: 10-16-2024 Influenza vaccination [facility] Start: 09-11-2024 [facility] Start: 09-08-2024 Hospital admission [facility] Start: 09-08-2024 [facility] Start: 09-07-2024 End: 09-07-2024 Patient encounter procedure [facility] Comment on above: 38 weeks gestation o f ([facility]) Start: 09-01-2024 End: 09-01-2024 [facility] Start: 09-01-2024 Urine culture [facility] Start: 09-01-2024 [facility] Start: 09-01-2024 Hospital admission [facility] Start: 09-01-2024 Bacteria identified in Urine by Culture [facility] Start: 08-31-2024 End: 08-31-2024 Patient encounter procedure [facility] Comment on above: Arrived 37 weeks gestation o f ([facility]) Start: 08-29-2024 End: 08-29-2024 Patient encounter procedure [facility] Comment on above: 37 weeks gestation o f ([facility]) Start: 08-25-2024 Group B Streptococcu s Culture Group B Streptococcus Culture [facility] Start: 08-25-2024 End: 08-25-2024 Patient encounter procedure 08/25/2024 10:30 AM EDT Routine [facility] [address] [place] [phone] Mandy Patel, DO [address] [place] [address] 36 weeks gestation of ([facility]); screening for streptococcus B ([facility]) [facility] Comment on above: 36 weeks gestation o f ([facility]); screening for streptococcus B ([facility]) Start: 08-08-2024 End: 08-08-2024 Patient encounter procedure 08/08/2024 3:45 PM EDT Routine [facility] [address] [place] [phone] Mandy Patel, DO [address] [place] [address] [facility] Start: 08-08-2024 End: 08-08-2024 Professional / ancillary services management 08/08/2024 3:30 PM EDT Ancillary Procedure [facility] [address] [place] [phone] [facility] Start: 07-25-2024 End: 07-25-2024 Patient encounter procedure 07/25/2024 1:45 PM EDT Routine [facility] [address] [place] [phone] Mandy Patel, DO [address] [place] [address] [facility] Start: 07-11-2024 End: 07-11-2024 Patient encounter procedure [facility] Comment on above: 30 weeks gestation o f Start: 07-02-2024 [facility] Start: 07-01-2024 Hospital admission [facility] Start: 06-27-2024 End: 06-27-2024 Patient encounter procedure 06/27/2024 2:15 PM EDT Routine [facility] [address] [place] [phone] Mandy Patel, DO [address] [place] [address] [facility] Start: 06-26-2024 End: 06-27-2024 [facility] Start: 06-24-2024 [facility] Start: 06-20-2024 [facility] Start: 06-16-2024 End: 06-16-2024 [facility] Start: 06-13-2024 [facility] Start: 05-30-2024 End: 05-30-2024 Patient encounter procedure 05/30/2024 2:15 PM EDT Routine [facility] [address] [place] [phone] Mandy Patel, DO [address] [place] [address] 24 weeks gestation of ; Screening for diabetes mellitus (DM) [facility] Comment on above: 24 weeks gestation o f ; Screening for diabetes mellitus (DM) Start: 05-02-2024 End: 05-02-2024 Patient encounter procedure 05/02/2024 2:15 PM EDT Routine [facility] [address] [place] [phone] Mandy Patel, DO [address] [place] [address] [facility] Start: 05-02-2024 End: 05-02-2024 Professional / ancillary services management 05/02/2024 1:15 PM EDT Ancillary Procedure [facility] [address] [place] [phone] [facility] Start: 04-04-2024 End: 04-04-2024 Patient encounter procedure [facility] Comment on above: 16 weeks gestation o f Start: 03-07-2024 End: 03-07-2024 ambulatory 03/07/2024 1:15 PM EST Initial [facility] [address] [place] [phone] Mandy Patel, DO [address] [place] [address] [facility] Start: 03-01-2024 End: 03-01-2024 Follow-up encounter 03/01/2024 8:00 AM EST [facility] [address] [place] [address] [place] [address] [place] [address] follow up [facility] Comment on above: follow up Start: 02-21-2024 End: 02-21-2024 Professional / ancillary services management 02/21/2024 2:45 PM EST Ancillary Procedure [facility] [address] [place] [phone] [facility] Start: 01-21-2024 End: 01-20-2025 OBSTETRIC ULTRASOUND WHI OBSTETRIC ULTRASOUND WHI Anc Imaging Routine Early stage of Expected: 01/21/2024, Expires: 01/20/2025 [facility] Work Phone: Comment on above: Expected: 01/21/2024 , Expires: 01/20/2025 Start: 01-21-2024 End: 01-21-2024 Patient encounter procedure 01/21/2024 1:00 PM EST Office Visit [facility] [address] [place] [address] [place] [address] lab [facility] Comment on above: lab Start: 01-20-2024 End: 01-19-2025 Bacteria identified in Urine by Culture Urine culture Microbiology Routine Encounter for supervision of normal first in first trimester Expected: 01/20/2024 (Approximate), Expires: 01/19/2025 [facility] Comment on above: Expected: 01/20/2024 (Approximate), Expires: 01/19/2025 Start: 01-20-2024 End: 01-19-2025 Blood type and Indirect antibody screen panel - Blood Type and screen Lab Routine Encounter for supervision of normal first in first trimester Expected: 01/20/2024 (Approximate), Expires: 01/19/2025 [facility] Comment on above: Expected: 01/20/2024 (Approximate), Expires: 01/19/2025 Start: 01-20-2024 End: 01-19-2025 CBC W Auto Differential panel - Blood CBC and differential Lab Routine Encounter for supervision of normal first in first trimester Expected: 01/20/2024 (Approximate), Expires: 01/19/2025 [facility] Comment on above: Expected: 01/20/2024 (Approximate), Expires: 01/19/2025 Start: 01-20-2024 End: 01-19-2025 hCG, quantitative, hCG, quantitative, Lab Routine examination or test, unconfirmed Expected: 01/20/2024 (Approximate), Expires: 01/19/2025 [facility] Comment on above: Expected: 01/20/2024 (Approximate), Expires: 01/19/2025 Start: 01-20-2024 End: 01-19-2025 Hepatitis B virus surface Ag [Presence] in Serum or Plasma by Immunoassay Hepatitis B surface antigen Lab Routine Encounter for supervision of normal first in first trimester Expected: 01/20/2024 (Approximate), Expires: 01/19/2025 [facility] Comment on above: Expected: 01/20/2024 (Approximate), Expires: 01/19/2025 Start: 01-20-2024 End: 01-19-2025 Hepatitis C virus Ab [Presence] in Serum or Plasma by Immunoassay Hepatitis C antibody Lab Routine Encounter for supervision of normal first in first trimester Expected: 01/20/2024 (Approximate), Expires: 01/19/2025 [facility] Comment on above: Expected: 01/20/2024 (Approximate), Expires: 01/19/2025 Start: 01-20-2024 End: 01-19-2025 HIV-1/HIV-2 antigen/antibody combination immunoassay HIV-1 and HIV-2 antibodies Lab Routine Encounter for supervision of normal first in first trimester Expected: 01/20/2024 (Approximate), Expires: 01/19/2025 [facility] Comment on above: Expected: 01/20/2024 (Approximate), Expires: 01/19/2025 Start: 01-20-2024 End: 01-19-2025 Reagin Ab [Presence] in Serum by RPR RPR Lab Routine Encounter for supervision of normal first in first trimester Expected: 01/20/2024 (Approximate), Expires: 01/19/2025 [facility] Comment on above: Expected: 01/20/2024 (Approximate), Expires: 01/19/2025 Start: 01-20-2024 End: 01-19-2025 Rubella antibody, IgG Rubella antibody, IgG Lab Routine Encounter for supervision of normal first in first trimester Expected: 01/20/2024 (Approximate), Expires: 01/19/2025 [facility] Comment on above: Expected: 01/20/2024 (Approximate), Expires: 01/19/2025 Start: 01-20-2024 End: 01-19-2025 SENDOUT TEST MISCELLANEOUS [facility] SENDOUT TEST MISCELLANEOUS [facility] Lab Routine Encounter for supervision of normal first in first trimester Encounter for drug screening Expected: 01/20/2024 (Approximate), Expires: 01/19/2025 [facility] Comment on above: Expected: 01/20/2024 (Approximate), Expires: 01/19/2025 Start: 01-20-2024 End: 01-19-2025 Urinalysis complete panel - Urine Urinalysis with microscopic Lab Routine Encounter for supervision of normal first in first trimester Expected: 01/20/2024 (Approximate), Expires: 01/19/2025 [facility] Work Phone: Comment on above: Expected: 01/20/2024 (Approximate), Expires: 01/19/2025 Start: 01-03-2024 End: 01-03-2024 ambulatory 01/03/2024 8:00 AM EST [facility] [address] [place] [id number] Sara Campbell APRN.RAMP JOCKEY [id number] [address] iui teach [facility] Comment on above: iui teach Start: 12-23-2023 End: 12-23-2023 Patient encounter procedure 12/23/2023 6:00 PM EST Office Visit [facility] [address] [place] [address] iui-benefit check [facility] Comment on above: iui-benefit check Start: 12-21-2023 End: 12-21-2023 Patient encounter procedure 12/21/2023 10:45 AM EST Office Visit [facility] [address] [place] [address] Sara Campbell APRN.RAMP JOCKEY [id number] [address] [facility] Comment on above: [facility] Start: 12-13-2023 End: 03-13-2024 25-hydroxyvitamin D3 [Mass/volume] in Serum or Plasma VITAMIN D 25 HYDROXY Lab Routine Vitamin D deficiency Expected: 12/13/2023, Expires: 03/13/2024 [facility] Comment on above: Expected: 12/13/2023 , Expires: 03/13/2024 Start: 12-13-2023 End: 03-13-2024 CARRIER SCREEN, EXPANDED [facility] Work Phone: Comment on above: Expected: 12/13/2023 , Expires: 03/13/2024 Start: 12-13-2023 End: 03-13-2024 RUBELLA IGG ANTIBODY [facility] Comment on above: Expected: 12/13/2023 , Expires: 03/13/2024 Start: 12-13-2023 End: 03-13-2024 Thyrotropin [Units/volume] in Serum or Plasma THYROID STIMULATING HORMONE Lab Routine Irregular menses Expected: 12/13/2023, Expires: 03/13/2024 [facility] Comment on above: Expected: 12/13/2023 , Expires: 03/13/2024 Start: 12-13-2023 End: 12-12-2024 US Uterus and Fallopian tubes W saline IU [facility] Work Phone: Comment on above: Expected: 12/13/2023 , Expires: 12/12/2024 Start: 12-13-2023 End: 03-13-2024 VARICELLA ZOSTER IGG [facility] Comment on above: Expected: 12/13/2023 , Expires: 03/13/2024 Start: 12-13-2023 End: 03-13-2024 WHIIVF ANTI MULLERIAN HORMONE WHIIVF ANTI MULLERIAN HORMONE Lab Routine Fertility testing Expected: 12/13/2023, Expires: 03/13/2024 [facility] Comment on above: Expected: 12/13/2023 , Expires: 03/13/2024 Start: 10-20-2023 End: 10-20-2023 Patient encounter procedure 10/20/2023 4:00 PM EDT Office Visit [facility] [address] [place] [phone] Anette Mcmillan DO [address] [place] [address] Arrived [facility] Comment on above: Arrived Start: 10-17-2023 Covid-19 Vaccine () Covid-19 Vaccine () [facility] Start: 10-17-2023 Influenza vaccination Influenza Vacc ine (#1) [facility] Start: 09-27-2023 Hemolytic complement CH50 level [facility] Start: 08-04-2023 Patient referral [facility] Work Phone: Start: 09-17-2021 Urine microalbumin profile DTaP,Tdap,Td Vaccine (7 - Td or Tdap) [facility] Start: 05-19-2020 Screening for malign ant neoplasm of cervix Cervical Cancer Screening [facility] Start: 05-19-2017 Anxiety Screening Anxiety Screening [facility] Start: 05-19-2017 Depression Screening Depression Scre ening [facility] Start: 2015 Meningococcal B Vaccine: Consider Based On Risk (1 of 2 - Patient Seeks Protection) Meningococcal B Vaccine: Consider Based On Risk (1 of 2 - Patient Seeks Protection) [facility] Start: 05-19-2014 HPV Vaccine (1 - 3-d ose series) HPV Vaccine (1 - 3-dose series) [facility] Start: 05-19-2013 Peds To Adult Transition Annual Assessment Peds To Adult Transition Annual Assessment [facility] Start: 2011 Peds To Adult Transition Initial Discussion Peds To Adult Transition Initial Discussion [facility] Albumin/Globulin ratio [facility] Angiotensin converti ng enzyme [Enzymatic activity/volume] in Serum or Plasma [facility] Anion gap measurement [facility] Bacteria identified in Urine by Culture Urine culture Microbiology STAT 07/01/2024 10:15 PM EDT [facility] Work Phone: Bacteria identified in Urine by Culture Urine culture Microbiology STAT 09/08/2024 9:40 PM EDT [facility] Work Phone: End: 01-17-2025 Choriogonadotropin.beta subunit [Units/volume] in Serum or Plasma HCG QUANTITATIVE Lab STAT Positive test 2 Occurrences starting 01/18/2024 until 01/17/2025 [facility] Work Phone: Comment on above: 2 Occurrences starti ng 01/18/2024 until 01/17/2025 Choriogonadotropin.b eta subunit [Units/volume] in Serum or Plasma HCG QUANTITATIVE Lab STAT Positive test 01/18/2024 12:56 PM EST [facility] Complement C3 [Mass/volume] in Serum or Plasma [facility] Complement C4 [Mass/volume] in Serum or Plasma [facility] Comprehensive metabo lic 1999 panel - Serum or Plasma [facility] Comprehensive metabo lic 1999 panel - Serum or Plasma [facility] Comprehensive metabo lic 1999 panel - Serum or Plasma Comprehensive metabolic panel Lab STAT 07/01/2024 11:11 PM EDT [facility] [employer] Work Phone: Comprehensive metabo lic 1999 panel - Serum or Plasma [facility] Globulin [Mass/volum e] in Serum [facility] Hemoglobin [Mass/volume] in Blood Hemoglobin and hematocrit, blood Lab Routine 24 weeks gestation of Ordered: 05/30/2024 [facility] Work Phone: Comment on above: Ordered: 05/30/2024 Hepatitis B core antibody measurement [facility] Hepatitis B virus surface Ab [Presence] in Serum [facility] IGP,CtNgTv,rfx Aptim a HPV ASCU Reflex IGP,CtNgTv,rfx Aptima HPV ASCU Reflex Pathology and Cytology Routine Screening for malignant neoplasm of cervix Screen for sexually transmitted diseases Ordered: 03/07/2024 [facility] [employer] Work Phone: Comment on above: Ordered: 03/07/2024 [id number] PLUS Core+SCA [id number] PLUS Core+SCA Lab Routine Genetic screening Ordered: 03/07/2024 [facility] [employer] Comment on above: Ordered: 03/07/2024 Measurement of gluco se 1 hour after glucose challenge for glucose tolerance test Glucose tolerance, 1 hour Lab Routine Screening for diabetes mellitus (DM) Ordered: 05/30/2024 [facility] Comment on above: Ordered: 05/30/2024 Patient Education [facility] Work Phone: Patient referral [facility] Work Phone: Progesterone [Mass/volume] in Serum or Plasma [facility] Progesterone [Mass/volume] in Serum or Plasma [facility] Progesterone [Mass/volume] in Serum or Plasma [facility] Protein/Creatinine [Ratio] in Urine [facility] Rheumatoid factor [Units/volume] in Serum or Plasma [facility] Streptococcus agalactiae [Presence] in Unspecified specimen by Organism specific culture [facility] Streptococcus pyogen es Ag [Presence] in Throat by Rapid immunoassay Strep B screen Microbiology Routine screening for streptococcus B ([facility]) Ordered: 08/25/2024 [facility] Work Phone: Comment on above: Ordered: 08/25/2024 [facility] Immunizations Immunization Date Immunization Notes Care Provider [facility] 09-11-2024 tetanus toxoid, redu luis eduardo diphtheria toxoid, and acellular pertussis vaccine, adsorbed Moe Alok Baughkenzie DO Work Phone: [facility] 03-12-2020 COVID-19 mRNA-1273 (Moderna) DO Moe Alok Baughkenzie Work Phone: [facility] 03-11-2020 Moderna SARS-CoV-2 Vaccination Anette Mcmillan DO Work Phone: [facility] 02-13-2020 COVID-19 mRNA-1273 (Moderna) DO Moe Baughjerardocarin Work Phone: [facility] 02-12-2020 Moderna SARS-CoV-2 Vaccination Anette Baughkenzie DO Work Phone: [facility] 01-14-2018 influenza virus vacc ine, unspecified formulation Anette Mcmillan DO Work Phone: [facility] 09-05-2015 meningococcal ACWY vaccine, unspecified formulation Mirna Aguilera [facility] 09-05-2015 meningococcal polysaccharide (groups A, C, Y and W-135) diphtheria toxoid conjugate vaccine (MCV4P) Anette Mcmillan DO Work Phone: [facility] 03-21-2012 hepatitis A vaccine, pediatric/adolescent dosage, 2 dose schedule Anette Mcmillan DO Work Phone: [facility] 03-21-2012 hepatitis A vaccine, unspecified formulation Mirna Aguilera [facility] 09-18-2011 hepatitis A vaccine, pediatric/adolescent dosage, 2 dose schedule Anette Mcmillan DO Work Phone: [facility] 09-18-2011 hepatitis A vaccine, unspecified formulation Mirna Lue [facility] 09-18-2011 meningococcal ACWY vaccine, unspecified formulation Mirna Lue [facility] 09-18-2011 meningococcal polysaccharide (groups A, C, Y and W-135) diphtheria toxoid conjugate vaccine (MCV4P) Anette Mcmillan DO Work Phone: [facility] 09-18-2011 tetanus toxoid, redu luis eduardo diphtheria toxoid, and acellular pertussis vaccine, adsorbed Mirna Lue [facility] 02-04-2009 influenza virus vacc ine, H1N1, live Mirna Lue [facility] 02-04-2009 influenza virus vacc ine, unspecified formulation Anette Mcmillan DO Work Phone: [facility] 02-04-2009 influenza, unspecifi ed formulation Mirna Lue [facility] 02-04-2009 novel Influenza-H1N1 -09, live virus for nasal administration Anette Mcmillan DO Work Phone: [facility] 01-07-2009 influenza virus vacc ine, H1N1, live Mirna Lue [facility] 01-07-2009 influenza virus vacc ine, unspecified formulation Anette Mcmillan DO Work Phone: [facility] 01-07-2009 influenza, unspecifi ed formulation Mirna Lue [facility] 01-07-2009 novel Influenza-H1N1 -09, live virus for nasal administration Anette Mcmillan DO Work Phone: [facility] 08-21-2004 diphtheria, tetanus toxoids and acellular pertussis vaccine Mirna Aguilera [facility] 08-21-2004 diphtheria, tetanus toxoids and acellular pertussis vaccine, 5 pertussis antigens Anette Mcmillan DO Work Phone: [facility] 08-21-2004 measles, mumps and rubella virus vaccine Mirna Lue [facility] 08-21-2004 poliovirus vaccine, inactivated Anette Mcmillan DO Work Phone: [facility] 08-21-2004 poliovirus vaccine, unspecified formulation Mirna Watsone [facility] 06-17-2000 diphtheria, tetanus toxoids and acellular pertussis vaccine Anette Mcmillan DO Work Phone: [facility] 06-17-2000 diphtheria, tetanus toxoids and acellular pertussis vaccine, 5 pertussis antigens Anette Mcmillan DO Work Phone: [facility] 06-17-2000 diphtheria, tetanus toxoids and acellular pertussis vaccine, unspecified formulation Anette Mcmillan DO Work Phone: [facility] 06-17-2000 DTaP, unspecified formulation Mirna Aguilera [facility] 06-17-2000 varicella virus vaccine Елена Aguilera [facility] 2000 haemophilus influenz ae type b conjugate and Hepatitis B vaccine Anette Mcmillan DO Work Phone: [facility] 2000 haemophilus influenz ae type b vaccine, PRP-OMP conjugate Anette Mcmillan DO Work Phone: [facility] 2000 measles, mumps and rubella virus vaccine Mirna Lue [facility] 2000 poliovirus vaccine, inactivated Anette Mcmillan DO Work Phone: [facility] 2000 poliovirus vaccine, unspecified formulation Mirna Luosbaldo [facility] 1999 diphtheria, tetanus toxoids and acellular pertussis vaccine Anette Mcmillan DO Work Phone: [facility] 1999 diphtheria, tetanus toxoids and acellular pertussis vaccine, 5 pertussis antigens Anetet Mcmillan DO Work Phone: [facility] 1999 diphtheria, tetanus toxoids and acellular pertussis vaccine, unspecified formulation Anette Mcmillan DO Work Phone: [facility] 1999 DTaP, unspecified formulation Mirna Lue [facility] 1999 haemophilus influenz ae type b vaccine, PRP-OMP conjugate Mirna Aguilera [facility] 1999 diphtheria, tetanus toxoids and acellular pertussis vaccine Anette Mcmillan DO Work Phone: [facility] 1999 diphtheria, tetanus toxoids and acellular pertussis vaccine, 5 pertussis antigens Anette Mcmillan DO Work Phone: [facility] 1999 diphtheria, tetanus toxoids and acellular pertussis vaccine, unspecified formulation Anette Mcmillan DO Work Phone: [facility] 1999 DTaP, unspecified formulation Mirna Lue [facility] 1999 haemophilus influenz ae type b conjugate and Hepatitis B vaccine Anette Mcmillan DO Work Phone: [facility] 1999 haemophilus influenz ae type b vaccine, PRP-OMP conjugate Anette Mcmillan DO Work Phone: [facility] 1999 poliovirus vaccine, inactivated Anette Mcmillan DO Work Phone: [facility] 1999 poliovirus vaccine, unspecified formulation Mirna Luosbaldo [facility] 1999 diphtheria, tetanus toxoids and acellular pertussis vaccine Anette Mcmillan DO Work Phone: [facility] 1999 diphtheria, tetanus toxoids and acellular pertussis vaccine, 5 pertussis antigens Anette Mcmillan DO Work Phone: [facility] 1999 diphtheria, tetanus toxoids and acellular pertussis vaccine, unspecified formulation Anette Mcmillan DO Work Phone: [facility] 1999 DTaP, unspecified formulation Mirna Lue [facility] 1999 haemophilus influenz ae type b conjugate and Hepatitis B vaccine Anette Mcmillan DO Work Phone: [facility] 1999 haemophilus influenz ae type b vaccine, PRP-OMP conjugate [facility] Work [facility]: [facility] 1999 poliovirus vaccine, inactivated Anette Mcmillan DO Work Phone: [facility] 1999 poliovirus vaccine, unspecified formulation Mirna Aguilera [facility] Payers Date Payer Category Payer Unknown [id number] 2022 [employer] Blue Shield 1.2.8 [id number] 2022 Unknown [id number] 2022 Unknown [id number] 1999 Unknown [id number] 2.16.84 0.1.672363.3.579.2.593 1999 Unknown [id number] 2.16.84 0.1.584952.3.579.2.593 1999 Unknown [id number] 2.16.8 40.1.220683.3.579.2.727 1999 Unknown [id number] 2.16.8 40.1.536972.3.579.2.727 1999 Unknown [id number] 2.16.8 40.1.443768.3.579.2.727 1999 Unknown [id number] 2.16.8 40.1.074590.3.579.2.1259 1999 Unknown [id number] 2.16.8 40.1.029442.3.579.2.1259 1999 Unknown [id number] 2.16.8 40.1.164499.3.579.2.1259 1999 Unknown [id number] 2.16.8 40.1.969824.3.579.2.9 1999 Unknown [id number] 2.16.8 40.1.025613.3.579.2.1259 1999 Unknown [id number] 2.16.8 40.1.260459.3.579.2.1259 1999 Unknown [id number] 2.16.8 40.1.955298.3.579.2.1259 1999 Unknown [id number] 2.16.8 40.1.303313.3.579.2.1259 1999 Unknown [id number] 2.16.8 40.1.270499.3.579.2.1259 1999 Unknown [id number] 2.16.84 0.1.902735.3.579.2.1259 1999 Unknown [id number] 2.16.84 0.1.812019.3.579.2.1259 1999 Unknown [id number] 2.16.84 0.1.650023.3.579.2.1258 1999 Unknown [id number] 2.16.84 0.1.362044.3.579.2.9 1999 Unknown [id number] 2.16.84 0.1.989157.3.579.2.1258 1999 Unknown [id number] 2.16.84 0.1.354363.3.579.2.1258 1999 Unknown [id number] 2.16.84 0.1.797866.3.579.2.1258 1999 Unknown [id number] 2.16.84 0.1.382727.3.579.2.1258 1999 Unknown [id number] 2.16.84 0.1.317716.3.579.2.1258 1999 Unknown [id number] 2.16.84 0.1.102919.3.579.2.9 1999 Unknown [id number] 2.16.84 0.1.526572.3.579.2.9 1963 Unknown [id number] 2.16.84 0.1.411115.3.579.2.754 1963 Unknown [id number] 2.16.84 0.1.986813.3.579.2.754 1959 Self-pay [id number] 1959 Unknown [id number] Unknown [id number] 2.16.84 0.1.619944.3.579.2.593 Unknown [id number] 2.16.8 40.1.036719.3.579.2.531 Unknown [id number] 2.16.8 40.1.689789.3.579.2.531 Unknown [id number] 2.16.8 40.1.536569.3.579.2.531 Unknown [id number] 2.16.8 40.1.350530.3.579.2.531 Unknown [id number] 2.16.8 40.1.652781.3.579.2.531 Unknown [id number] 2.16.8 40.1.779027.3.579.2.531 Unknown [id number] 2.16.8 40.1.019513.3.579.2.531 Unknown [id number] 2.16.8 40.1.108135.3.579.2.531 Unknown [id number] 2.16.8 40.1.535262.3.579.2.531 Unknown [id number] 2.16.8 40.1.637747.3.579.2.531 Social History Date Type Detail Facility Start: 10-19-2023 End: 12-14-2023 Sex Assigned At [facility] Start: 06-26-2020 End: 07-16-2022 Tobacco smoking status NHIS Never smoked tobacco (finding) [facility] Start: 1999 Sex Assigned At Female [facility] Tobacco smoking status Never [facility] Larry Start: 07-16-2022 End: 12-13-2023 Tobacco use and exposure Smokeless tobacco non-user [facility] Start: 10-19-2023 End: 12-14-2023 History of Social function [facility] Start: 1999 Sex assigned at Not on file [facility] Start: 01-20-2024 End: 09-21-2024 Alcoholic beverage intake Ex-drinker (finding) [facility] Within the last year , have you been afraid of your partner or ex-partner? No [facility] Are you now , , , , never or living with a partner? [facility] How often to you hav e a drink containing alcohol? Monthly or less [facility] How many standard drinks containing alcohol do you have on a typical day? 1 or 2 [facility] How often do you hav e 6 or more drinks on 1 occasion? Never [facility] How hard is it for you to pay for the very basics like food, housing, medical care, and heating Not very hard [facility] Do you feel stress - tense, restless, nervous, or anxious, or unable to sleep at night because your mind is troubled all the time - these days [OSQ] Very much [facility] (I/We) worried whether (my/our) food would run out before (I/we) got money to buy more. Never true [facility] Start: 01-20-2024 Alcohol Comment Caffeine intak e: 1 cup coffee/daily [facility] Start: 12-26-2023 [facility] Start: 09-09-2022 Alcohol Comment Caffeine intak e: none [facility] Start: 02-23-2024 End: 07-22-2024 Sex Female (finding) [facility] NEGATED: Highlighted rowStart: NINF History of tobacco use Passive smoker [facility] Goals Date Patient Goal Desired Activity /State Functional Status Date Assessment Result Facility 09-11-2024 Functional status Patient at Baseline [facility] Work Phone: Mental Status Date Assessment Result Facility 09-11-2024 Cognitive function Cognitive Sta tus Patient at Baseline [facility] Work Phone: Clinical Notes 12-18-2020 to 09-21-2024 Mandy Patel DO - 09/21/2024 4:00 PM EDT Note Date & Type Note Facility 09-21-2024 History of Presen t illness Narrative Images from the original note were not included. Mandy Patel D.O. Obstetrics and Gynecology Patient: Danelle Guido : 2000 (24 y.o.) Exam Date: [...] 187 lb LMP 12/12/2023 Yes BMI 32.10 kg/m OB Status Recent Smoking Status Never BSA 1.96 m Allergies Allergen Reactions Zinc Hives Bacid Dairy [...] Review Audit Reviewed by Patti Romeo MA (Forensic Identification Specialist) on 09/21/24 at 1600 Medication Order Taking? Sig Documenting Provider Last Dose Status Discontinued 09/21/24 1600 cyanocobalamin (Vitamin B-12) 100 MCG tablet [id number] Take 100 mcg by mouth Daily Mandy Patel DO Active ferrous sulfate 325 (65 Fe) MG tablet [id number] Take 325 mg by mouth in the morning. Take with meals. Active metFORMIN (Glucophage) 500 MG tablet [id number] TAKE ONE TABLET BY MOUTH THREE TIMES A DAY WITH A MEAL Mandy Patel, Active Vit w/Ps-Goxuyfjgr-KX (PNV PO) [id number] No Take by mouth Mandy Patel DO Taking Active sertraline (Zoloft) 25 MG tablet [id number] Take 1 tablet (25 mg) by mouth Daily Anette Mcmillan DO Active Past Medical History: Diagnosis Date Anemia [...] to gross testing, coordination, and gait are normal or at baseline unless noted below. General: Alert, cooperative, no distress, appears stated age Head: Normocephalic, without obvious abnormality, atraumatic Eyes: sclera anicteric Ears: no obvious hearing deficit Skin: Warm and dry Heart: Regular rate Lungs: Respirations unlabored Extremities normal, atraumatic, no cyanosis or edema Diagnoses and all orders for this visit: anxiety ([facility]) - sertraline (Zoloft) 50 MG tablet; Take [...] 4 weeks for visit. ICD-10-CM 1. anxiety ([facility]) O99.345 sertraline (Zoloft) 50 MG tablet F41.8 2. Acute vulvitis N76.2 nystatin-triamcinolone (Mycolog II) ointment documented in this encounter [facility] 09-11-2024 Progress note Note Date/Time September 11, 2024 11:28am [facility] [address] [place], [place] [id number] [employer] ACCOUNTANT Progress Note Signed Patient: Danelle Guido MR#: [id number] : 2000 Acct:[id number] Age/Sex: 24 / F Adm Date: 5 Loc: 3S Room: [address] [place] [address] Type: ADM IN Attending Dr: Corina Hernandez MD Copies to: ~ Date of Service: 09/11/2024 OB - PN: Subj Subjective Post Delivery Day #: Day 2 Interval history: Pt denies heavy vaginal bbleeding,severe cramping,GI,,Respiratory complaints OB - PN: Obj Exam Physical Exam Vital signs: Vital Signs - 8 hr 09/11/24 06:43 Pulse Rate [Monitor] 112 H Respiratory Rate 17 Blood Pressure [Left Arm] 134/79 Oxygen Delivery Method Room Air Constitutional Constitutional: no acute distress Respiratory Exam Respiratory: Absent accessory muscle use Cardiovascular Exam Cardiovascular: Present RRR Abdominal Exam Abdominal: Present soft; Absent tenderness, distended or rebound Fundus: Present firm Exam External: Present ecchymosis (right perineal region- no hematoma) Extremities Exam Extremities: Present full ROM; Absent cyanosis OB - PN: Obj Data Labs 09/10/24 07:47 Microbiology Micro Results: Microbiology 09/08/24 21:40 Urine - Clean-Voided Midstream Urine Culture - Final Strep agalactiae - (group b) Assessment/Plan Assessment (1) 38 weeks gestation of : (2) Status post vaginal delivery: Plan Home instructions and follow up instructions reviewed. Plan for discharge home. Plan day: 2 Vaginal delivery plan (if applicable): routine care, discharge home and follow up 6 weeks Documented By: Mandy Patel DO 09/11/24 11 26 Signed By: <Electronically signed by Mandy Patel DO> 09/11/[address] [place] [address] Work Phone: 1(130) 123-891707-28-2025 [place] [address] M[employer] ACCOUNTANT Progress Note Signed Patient: Danelle Guido MR#: [id number] : 2000 Acct:[id number] Age/Sex: 24 / F Adm Date: 5 Loc: 3S Room: [address] [place] [address] Type: ADM IN Attending Dr: Corina Hernandez MD Copies to: ~ Date of Service: 09/11/2024 OB - PN: Subj Subjective Post Delivery Day #: Day 2 Interval history: Pt denies heavy vaginal bbleeding,severe cramping,GI,,Respiratory complaints OB - PN: Obj Exam Physical Exam Vital signs: Vital Signs - 8 hr 09/11/24 06:43 Pulse Rate [Monitor] 112 H Respiratory Rate 17 Blood Pressure [Left Arm] 134/79 Oxygen Delivery Method Room Air Constitutional Constitutional: no acute distress Respiratory Exam Respiratory: Absent accessory muscle use Cardiovascular Exam Cardiovascular: Present RRR Abdominal Exam Abdominal: Present soft; Absent tenderness, distended or rebound Fundus: Present firm Exam External: Present ecchymosis (right perineal region- no hematoma) Extremities Exam Extremities: Present full ROM; Absent cyanosis OB - PN: Obj Data Labs 09/10/24 07:47 Microbiology Micro Results: Microbiology 09/08/24 21:40 Urine - Clean-Voided Midstream Urine Culture - Final Strep agalactiae - (group b) Assessment/Plan Assessment (1) 38 weeks gestation of : (2) Status post vaginal delivery: Plan Home instructions and follow up instructions reviewed. Plan for discharge home. Plan day: 2 Vaginal delivery plan (if applicable): routine care, discharge home and follow up 6 weeks Documented By: Mandy Patel DO 09/11/24 11 26 Signed By: 09/11/24 [facility]07-24-2025 History of Present illness Narrative * Mandy Patel DO - 09/07/2024 2:00 PM EDT Urine T/N. Denies concerns. Pt states was given an antibiotic at the hospital, Pt has not started it d/t not sure why she was prescribed it. Urine culture negative. Plan for IOL Wednesday night 10pm Cytotec [id number] History of Present illness Narrative* Mandy Patel DO - 08/31/2024 1:30 PM EDT Urine T/N. Urine is No longer dark in color. Clear/yellow now. Pt c/o headache today. Took Tylenol 325mg 10:00 am, states headache is still noticeable. Did discuss normal BP today and urine looks much better. Did advise on fluid intake, rest, and can take 1000mg of Tylenol every 6 hours. Patient tocall with any worsening symptoms. documented in this [facility]07-17-2025 History of Present illness Narrative* Mya Kothari RN - 08/31/2024 12:45 PM EDT Non-Stress Test heart variability: moderate Heart Rate decelerations: none acoustic stimulator: no Heart Rate accelerations: yes Baseline FHR: 125 per minute Non-stress Test: reactive Uterine contractions: none Diagnosis Plan 1. 37 weeks gestation of ([facility]) 2. Decreased movements in third trimester, single or unspecified fetus ([facility]) documented in this [facility]07-15-2025 History of Present illness Narrative* Mandy Patel DO - 08/29/2024 2:00 PM EDT Urine 2+/N. Pt notice her urine has been dark since Wednesday. Pt states drinking water. Pt also notice more cramping. Denies dysuria. Pt would like cervix checked. Discussed hydration/rest. BP WNL- asymptomatic. Will return after working on hydrating to check urine protein. documented in this [facility]07-11-2025 History of Present illness Narrative* Mandy Patel DO - 08/25/2024 10:30 AM EDT Gbbs ordered, delivery permit signed, Urine N/N. Pt does not want blood transfusions even in case of an emergency. For presybeterian reasons, patient will refuse all blood/blood products even if life saving. Did discuss at length and rare/possible circumstances where this may arise documented in this [facility]06-24-2025 History of Present illness Narrative* Mandy Patel DO - 08/08/2024 3:45 PM EDT Urine N/N. Pt thinks she might have lost mucus plug, not sure. PT notice legs/ankles swelling. EFW 5#9oz, 59%, ARIC WNL documented in this [facility]06-19-2025 Evaluation note* Diagnosis Onset Date Resolution Status Admit Date Acquired iron deficiency ane mary due to increased iron requirement acute August 03, 2024 1:49pm Leukocytosis acute August 03, 2 025 1:49pm Positive VANDANA (antinuclear antibody) acute August 03, 2024 1:49pm acute August 03 1:49pm [facility] [facility] Work Phone: 1(848) 868-689806-19-2025 Evaluation note* Diagnosis Onset Date Resolution Status Admit Date Acquired iron deficiency ane mary due to increased iron requirement acute August 03, 2024 1:49pm Leukocytosis acute August 03, 2 025 1:49pm Positive VANDANA (antinuclear antibody) acute August 03, 2024 1:49pm acute August 03 1:49pm 38 weeks gestation of acut e September 08, 2024 9:06pm Status post vaginal delivery acute September 08, 2024 9:06pm [facility] Work Phone: [phone]) 901-983106-10-2025 History of Present illness Narrative* Mandy Patel DO - 07/25/2024 1:45 PM EDT Urine N/N. Denies concerns. documented in this [facility]05-27-2025 History of Present illness Narrative* Mandy Patel DO - 07/11/2024 2:30 PM EDT Urine N/N. Pt c/o on and off Rt. Sided pain. documented in this [facility]05-13-2025 History of Present illness Narrative* Mandy Patel DO - 06/27/2024 2:15 PM EDT Kick count given to pt. Urine N/N. Pt c/o Belly pain on Rt. Side of belly. Pt notice increase of acid reflux. PT just had her 3rd iron infusion today. Passed 3hr GTT documented in this [facility]04-15-2025 History of Present illness Narrative* Mandy Patel DO - 05/30/2024 2:15 PM EDT Glucose, H&H ordered, Urine N/N. Pt seeing dialysis registered nurse. Recommended an iron infusion. Also concerned about swelling hands and ankles. documented in this [facility]04-10-2025 Evaluation note* Diagnosis Onset Date Resolution Status Admit Date Acquired iron deficiency ane mary due to increased iron requirement acute May 25, 2024 2:24pm Leukocytosis acute May 25, 2024 2:24pm Positive VANDANA (antinuclear antibody) acute May 25, 2024 2:24pm acute May 25 2:24pm [facility] Work Phone: [phone]) 424-838502-18-2025 History of Present illness Narrative* Mandy Patel DO - 04/04/2024 2:15 PM EST Urine N/N. Pt feeling well, Denies concerns. documented in this [facility]01-21-2025 History of Present illness Narrative* Mandy Patel DO - 03/07/2024 1:15 PM EST Urine N/N. Pt feeling well, tired. Pt is planning on going on a trip in 2 weeks. Pt states seeing oncologist/dialysis registered nurse. Pt states iron has been low. Pt was positive VANDANA Lupus. Pt would like to discuss genetic testing Pt states interested in having done. Did recommend starting baby ASA- will be flying to [place] soon documented [facility] this [facility] [id number] Instructions* Patient Instructions* Marina Arthur MD - 03/02/2024 10:50 PM EST Thank you for visiting the [facility]. Our team looks forward to providing you with excellent care to help you achieve your family goals. The best way to contact me is by Questli. Important phone numbers: [facility] main line: [phone]. Wednesday-Wednesday 8 AM - 4:30 PM. This number is for questions or scheduling related to your fertility treatments. For patients wanting to schedule surgery or questions related to your surgery call [phone]. After hours emergency only Physician line: [phone] For patients needing to create a medical record/chart for partner: [phone] 2. Polycystic Ovary Syndrome Women with polycystic ovary syndrome (PCOS) have a hormonal imbalance that interferes with normal reproductive processes. PCOS usually starts at puberty and is associated with irregular periods and other hormone related symptoms. The most concerning issues with PCOS are the increase of infertility,the risk of developing type 2 diabetes and cardiovascular disease, and the higher risk of developing endometrial (uterine) cancer at an early age. What are the symptoms of PCOS? Irregular menstrual periods, or no menstrual periods at all Decreased frequency or complete lack of ovulation, resulting in problems with infertility Obesity, often specifically characterized by weight gain in the upper body and abdomen Oily skin and hair and persistent acne into adulthood Abnormal hair growth, in a masculine distribution (facial hair, heavy hair growth on arms, chest, and abdomen) Tendency to develop type 2 diabetes What causes PCOS syndrome? Research is ongoing to uncover a cause for PCOS. There is evidence that shows a link between certain forms of PCOS and family history, suggesting a genetic basis for the condition. How is PCOS diagnosed? Most cases can be diagnosed with a thorough evaluation of your medical history and symptoms, as well as a physical exam. A blood test may be required to measure the levels of various hormones. In some cases, an ultrasound of the ovaries may help with diagnosis. How is PCOS treated? Although PCOS can be treated with medications, treatment is often highly dependent on your goals and your symptoms. If you want to become , you may need the assistance of oral or injected fertility medications. If you do not want to become , you may consider control pills to prevent pregnancyand regulate periods. Other symptoms such as unwanted hair growth, acne, obesity, and diabetes should be managed by specialists in those areas. Specific treatment options should be discussed with your physician. How can PCOS be prevented? There is no known prevention for PCOS. However, through proper nutrition and weight management manywomen with polycystic ovary syndrome can avoid developing diabetes and cardiovascular problems. How can I improve my chances of conceiving if I have PCOS? While specific fertility issues should be addressed with your physician, there are some general healthcare guidelines that may improve your chances of becoming : Folic acid (400 mcg. supplement a day, with a diet rich in folic acid, including leafy green vegetables, dried beans, liver, and citrus fruits) Limit caffeine (Fewer than two caffeinated beverages per day) Eat well (Healthy well-balanced diet) Exercise and maintain a healthy weight (Maintain a normal exercise routine, 20 to 30 minutes per day, 4 to 5 times per week.) This information is provided by your physician and the [facility] Journal of Medicine and the[facility] [email or web address]. This information has not been designed to replace a physician's medical assessment and medical judgment. Copyright 1994- 2012 The [facility]. All rights reserved This information is provided by the [facility] and is not intended to replace the medical advice of your doctor or health care provider. Please consult your health care provider for advice about a specific medical condition. For additional health information, please contact the Center for Consumer Health Information at the [facility] or toll-free extension [phone]. If you prefer, you may visit [email or web address] or [email or web address]. This document was last reviewed on: 2009 index#[id number] documented in this encounterC[facility]01-[facility] History of Present illness Narrative* Marina Arthur MD - 03/01/2024 8:00 AM EST Images from the original note were not included. REPRODUCTIVE ENDOCRINOLOGY AND INFERTILITY RETURN PATIENT CLINIC NOTE This is a virtual visit using Zoom. It required patient-provider interaction for the medical decision making as documented below. I have communicated my name and active licensure. The patient's identity and physical location were verified at the time of this visit. Either the patient or their legalrepresentative has been informed of the risks and benefits of -- and alternatives to -- treatment th rough a remote evaluation and consents to proceed with the evaluation remotely. Reason for visit: Follow Up Subjective: CHRISTINE Guido is a 23 year old woman, a , who presents for follow up to discuss diagnosis of PCOS. She was last seen in this clinic on 01/21/2024 with Sara Campbell APRN.CNP for a new visit, fertility treatment used for this : none/natural cycle.She is currently 11 weeks . She presents today to review her results to date and long-term fertility plans. OB scan viability 02/01/2024: Impression: - Single, live, intrauterine . - An intrauterine gestational sac with a yolk sac and pole is present. - Healy rump length measurement is consistent with the established gestational age. - heart rate is within normal limits. Recommendations Refer to ob team for care. Labs since last visit: Latest Ref Rng 12/21/2023 TSH 0.270 - 4.200 mIU/L 1.060 Vitamin D 25 Hydroxy 31.0 - 80.0 ng/mL 28.2 (L) Anti Mullerian Hormone 1.22 - 11.70 ng/mL 5.33 Latest Ref Rng 12/13/2023 WBC 3.70 - 11.00 k/uL 10.63 RBC 3.90 - 5.20 m/uL 4.57 Hemoglobin 11.5 - 15.5 g/dL 13.6 Hematocrit 36.0 - 46.0 % 40.3 MCV 80.0 - 100.0 fL 88.2 MCH 26.0 - 34.0 pg 29.8 MCHC 30.5 - 36.0 g/dL 33.7 RDW-CV 11.5 - 15.0 % 12.2 Platelet Count 150 - 400 k/uL 410 (H) MPV 9.0 - 12.7 fL 8.9 (L) Absolute nRBC <0.01 k/uL <0.01 Latest Ref Rng 12/13/2023 ABO A Rh(D) Positive Antibody Screen Negative Type+Scr Expiration 12/16/2023 23:59 Varicella Zoster IgG, Qual Positive Positive Latest Ref Rng 12/13/2023 Rubella IgG, Qual Positive Positive Latest Ref Rng 12/13/2023 HIV 12 Combo (Ag/Ab) Nonreactive Nonreactive HIV 1/2 Ab -- HIV Interpretation -- Neisseria gonorrhoeae RNA Negative for Neisseria gonorrhoeae by amplification Negative for Neisseria gonorrhoeae by amplification Chlamydia trachomatis RNA Negative for Chlamydia trachomatis by amplificaton Negative for Chlamydiatrachomatis by amplification Syphilis Treponemal Screen Nonreactive Nonreactive Syphilis Interpretation Cannot exclude recent Treponemal infection if specimen collected within 7-10 days after appearance of suspect lesions or 2-3 weeks after an exposure. Clinical correlation is required. Hep C Antibody IA Negative Negative Hep B Surface Ag Negative Negative Hep B Core Ab, Total Negative Negative Latest Ref Rng 12/13/2023 Hemoglobin A1C 4.3 - 5.6 % 5.3 Estimated Average Glucose mg/dL 105 SIS 12/22/2023: Impression: Normal appearing anteverted uterus that measures 73 mm x 28 mm x 43 mm. Saline infusion sonohysterogram demonstrated a normal appearing endometrial cavity. The details of these findings are described in the procedure section below. Both ovaries are visualized and appear normal. No adnexal masses were observed. There is no free fluid visualized in the peritoneal cavity. Initial DANIEL consult note on 12/13/2023: She is kindly referred by Dr. Patel. She is a very pleasant 23 year old white woman, a , who presents for consultation for infertility. Seen with her for new patient infertility consultation. They have been for 4.5 years. Actively trying to conceive x 1 year but not preventing /off control x 2.5 years. Goal family size of 3 children. Initially told she has polycystic ovary syndrome (PCOS) approximately 2 years ago when she developed unilateral pain and was found to have hemorrhagic cyst on L ovary; repeat US showed polycystic morphology of ovaries. However she does not recall having labs that showed elevated testosterone and denies clinical signs of hyperandrogenism. Reports regular predictable cycles, q32 days or so. +OPKs with surge CD17-20. Does have hx pre-diabetes, taking metformin 500 TID with normal A1c recently. Momhas hx PCOS. Sought initial evaluation for fertility with turnaround planner in [place]. Had HSG done a few months ago, told normal. No recent ultrasound done. had semen analysis that was within normal limits. Biochemical x1 in 05/2023. Has done 5 cycles of clomid/+OPK/TIC. 50 x 4 cycles -> 100. Past Medical History: PAST MEDICAL HISTORY Diagnosis Date Anemia Female infertility Insulin resistance Past Surgical History: No past surgical history on file. 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 Allergies: ALLERGIES No Known Allergies Medications: Current Outpatient Medications Medication Sig ferrous sulfate (IRON) 325 mg (65 mg iron) tablet Take 1 tablet by mouth two times a day. [id number] tab Take 1 tablet by mouth once daily. metFORMIN (GLUCOPHAGE) 500 mg tablet One tablet three times daily with meals. sertraline (ZOLOFT) 25 mg tablet Take 25 mg by mouth. No current facility-administered medications for this visit. Family History: Negative for breast, ovarian or uterine cancer. family history includes Colon Cancer in her paternal grandfather. Social History: Social History Tobacco Use Smoking status: Never Smokeless tobacco: Never The following portions of the patient's history were reviewed and updated as appropriate: allergies, current medications, past family history, past medical history, past social history, past surgicalhistory and problem list. Review of Systems A >10 system ROS was reviewed and is otherwise negative, except as indicated in the chief complaint and/or HPI above if applicable. Objective: Physical Exam Constitutional: Well-developed and well-nourished. HEENT: Head normocephalic and atraumatic. Assessment: This is a 23 year old female, a , with PCOS and a new Plan: 1. PCOS: The patholophysiology of PCOS was described in detail with the patient. She was advised this is a common endocrinopathy affecting 5-10% of women and that she is at risk for other health conditions such as Type 2 diabetes mellitus, metabolic syndrome, endometrial hyperplasia and subsequent endometrial cancer. The role of insulin resistance was highlighted as well as the importance of weight loss. She was advised she may equire an ovulation induction agent such as letrozole or Clomid if she were to desire in the future. 2. She will follow up after this is she isn't able to conceive with her next attempt. 3. The patient had multiple questions that were addressed today. These were answered to her satisfaction I spent a total of 20 minutes face to face with the patient. Greater than 50% of the time was spentcounseling and coordinating the care based on my plan and assessment as noted. I spent a total of 30 minutes on the date of the service which included preparing to see the patient, [id number] patient care, completing clinical documentation, obtaining and/or reviewing separately obtained history, counseling and educating the patient/family/caregiver and care coordination (not separately reported). Marina Arthur MD, [place] To patients reading this note: Please be advised the primary purpose of this note is for me to communicate with myself and other members of your medical team. Standard sentence structure is not always used. Medical terminology and medical abbreviations may be used. There may be grammatical and typographical errors missed in proofreading. documented in this encounterC[facility]01-15-2025 NoteHNO ID: [id number] Author: MARINA ARTHUR MD Service: ? Author Type: Physician Type: Progress Notes Filed: 03/02/2024 22:51 Note Text: REPRODUCTIVE ENDOCRINOLOGY AND INFERTILITY RETURN PATIENT CLINIC NOTE This is a virtual visit using Zoom. It required patient-provider interaction for the medical decision making as documented below. I have communicated my name and active licensure. The patient's identity and physical location were verified at the time of this visit. Either the patient or their legal indirect sales representative has been informed of the risks and benefits of -- and alternatives to -- treatment through a remote evaluation and consents to proceed with the evaluation remotely. Reason for visit: Follow Up Subjective: CHRISTINE Guido is a 23 year old woman, a , who presents for follow up to discuss diagnosis of PCOS. She was last seen in this clinic on 01/21/2024 with Sara Campbell APRN.CNP for a new visit, fertility treatment used for this : none/natural cycle.She is currently 11 weeks . She presents today to review her results to date and long-term fertility plans. OB scan viability 02/01/2024: Impression: - Single, live, intrauterine . - An intrauterine gestational sac with a yolk sac and pole is present. - Healy rump length measurement is consistent with the established gestational age. - heart rate is within normal limits. Recommendations Refer to ob team for care. Labs since last visit: Latest Ref Rng 12/21/2023 TSH 0.270 - 4.200 mIU/L 1.060 Vitamin D 25 Hydroxy 31.0 - 80.0 ng/mL 28.2 (L) Anti Mullerian Hormone 1.22 - 11.70 ng/mL 5.33 Latest Ref Rng 12/13/2023 WBC 3.70 - 11.00 k/uL 10.63 RBC 3.90 - 5.20 m/uL 4.57 Hemoglobin 11.5 - 15.5 g/dL 13.6 Hematocrit 36.0 - 46.0 % 40.3 MCV 80.0 - 100.0 fL 88.2 MCH 26.0 - 34.0 pg 29.8 MCHC 30.5 - 36.0 g/dL 33.7 RDW-CV 11.5 - 15.0 % 12.2 Platelet Count 150 - 400 k/uL 410 (H) MPV 9.0 - 12.7 fL 8.9 (L) Absolute nRBC <0.01 k/uL <0.01 Latest Ref Rng 12/13/2023 ABO A Rh(D) Positive Antibody Screen Negative Type+Scr Expiration 12/16/2023 23:59 Varicella Zoster IgG, Qual Positive Positive Latest Ref Rng 12/13/2023 Rubella IgG, Qual Positive Positive Latest Ref Rng 12/13/2023 HIV 12 Combo (Ag/Ab) Nonreactive Nonreactive HIV 1/2 Ab -- HIV Interpretation -- Neisseria gonorrhoeae RNA Negative for Neisseria gonorrhoeae by amplification Negative for Neisseria gonorrhoeae by amplification Chlamydia trachomatis RNA Negative for Chlamydia trachomatis by amplificaton Negative for Chlamydia trachomatis by amplification Syphilis Treponemal Screen Nonreactive Nonreactive Syphilis Interpretation Cannot exclude recent Treponemal infection if specimen collected within 7-10 days after appearance of suspect lesions or 2-3 weeks after an exposure. Clinical correlation is required. Hep C Antibody IA Negative Negative Hep B Surface Ag Negative Negative Hep B Core Ab, Total Negative Negative Latest Ref Rng 12/13/2023 Hemoglobin A1C 4.3 - 5.6 % 5.3 Estimated Average Glucose mg/dL 105 SIS 12/22/2023: Impression: Normal appearing anteverted uterus that measures 73 mm x 28 mm x 43 mm. Saline infusion sonohysterogram demonstrated a normal appearing endometrial cavity. The details of these findings are described in the procedure section below. Both ovaries are visualized and appear normal. No adnexal masses were observed. There is no free fluid visualized in the peritoneal cavity. Initial DANIEL consult note on 12/13/2023: She is kindly referred by Dr. Patel. She is a very pleasant 23 year old white woman, a , who presents for consultation for infertility. Seen with her for new patient infertility consultation. They have been for 4.5 years. Actively trying to conceive x 1 year but not preventing /off control x 2.5 years. Goal family size of 3 children. Initially told she has polycystic ovary syndrome (PCOS) approximately 2 years ago when she developed unilateral pain and was found to have hemorrhagic cyst on L ovary; repeat US showed polycystic morphology of ovaries. However she does not recall having labs that showed elevated testosterone and denies clinical signs of hyperandrogenism. Reports regular predictable cycles, q32 days or so. +OPKs with surge CD17-20. Does have hx pre-diabetes, taking metformin 500 TID with normal A1c recently. Mom has hx PCOS. Sought initial evaluation for fertility with turnaround planner in [place]. Had HSG done a few months ago, told normal. No recent ultrasound done. had semen analysis that was within normal limits. Biochemical x1 in 05/2023. Has done 5 cycles of clomid/+OPK/TIC. 50 x 4 cycles -> 100. Past Medical History: PAST MEDICAL HISTORY Diagnosis Date Anemia Female infertility Insulin resistance Past Surgical History: No past surgical hist (more content not included)...[facility] [place] [address] Cancer Center Note Signed Patient: Danelle Guido MR#: [id number] : 2000 Acct:[id number] Age/Sex: 23 / F Type: REG AMB Date of Service: 02/23/24 Copies to: Rebecca Mcmillan Jr, DO~ Assessment & Plan A/P (1) Leukocytosis: (2) Iron deficiency: (3) Positive VANDANA (antinuclear antibody): (4) : Plan Her leukocytosis was intermittent and likely related to an autoimmune process caused by her positive VANDANA. Our lab investigation revealed that she has positive VANDANA and low iron studies. She has normalcortisol level normal TSH and a free T4. Her BCR able by FISH came back negative. And peripheral blood flow cytometry was negative for acute or chronic leukemia. FISH for blood was negative for any ab normalities for MPN. And MPN panel was negative for calretinin, MPL and also JAK2 and JAK2 exon 12-13 mutation. Your HIV and hepatitis panel were all negative. Rheumatoid factor and RADHA were normal. At this point there is no evidence that her leukocytosis is related to her polycystic ovarian syndrome. At this point I do not see necessary to do ultrasound of the gallbladder or renal ultrasound or urinalysis as she has no abdominal pain or flank pain or dysuria or any fever or symptoms of UTI. Examining her teeth revealed no dental cavities. Referral to rheumatology for positive VANDANA. She states she has tingling of the hands and feet but I am not sure if this could be considered neuropathy from or related to her positive VANDANA. Will do further evaluation to further. 02/23/24: Patient is here for 6-month follow-up for her history of iron deficiency anemia and leukocytosis. She was last time referred to rheumatology for positive VANDANA and for tingling in her hands and feet which could have been related to neuropathy) positive VANDANA. She is 10 weeks and she is follow-up for any further recommendation regarding her history of iron deficiency anemia. For the iron deficiency anemia she was told to use ferrous sulfate 65 mg 2 times daily and to repeat the labs 6months later and she is here for that now. She denied any active bleeding to her knowledge clinically from any source. Labs done on 02/14/2024 revealed that she is not anemic hemoglobin is 13.3 whichis normal. The white blood cell is mildly high at 14.0. MCV is normal now 87.8and the platelet count is 422. Her WBC has been anywhere from 10,000-14,000 within the last year. Her WBC was normal at 10.5 back in September. She is 10 weeks now. Absolute neutrophil count is 9.2 and absolute monocyte count is 1.1 with the rest of the WBC differential being normal. Her iron studies today 02/14/2024 revealed iron saturation of 17.1% with iron of 76 TIBC 445 ferritin of 52.7 and transferrin 318. Ferritin increased from 30 last time June 2023 and iron saturation increased from 11% back in June 2023. Plan and recommendation: Since she is 10 weeks , we will monitor her labs more often and do it every 3 months instead of every 6 months. Labs will be CBC with differential, iron studies B12 and folate in 3 months andsee her then. At this point she was informed that she may have related. Mild leukocytosis that is not concerning. I also informed her that if she ends up with bleeding fashioning from somewhere else to let us know so we can do her labs sooner. 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 Patient Instructions: cbc,cmp,iron,b12 3months follow up 3 months CHEMO PLAN No Active Chemotherapy History of Present Illness CHRISTINE Mae is 23-year-old nice female who has a history of polycystic ovarian syndrome, intermittent diarrhea, IBS, anxiety and depression, hyperlipidemia andinsomnia was referred to our hematology officeto be evaluated for persistent leukocytosis since at least January 2023. January 2023 she had to her right kidney stones 1 to 2 mm which passed. At that point her white blood cell was 14.2 in the on absolute neutrophil count of 8.4 and absolute monocyte count 1.0 otherwise the absolute lymphocytecount was normal. Her RBC was normal at 4.70 with a hematocrit of 41.5. However her platelet was high 461,000. Further labs were done February and June 2023 which revealed persistent mild leukocytosisanywhere from 10.9-11.3 with persistent mild thrombocytosis of 416-436. Therefore patient was referred to hematology for further evaluation. Patient is sexually active with her and denies any history of tobacco abuse or marijuana use or alcohol intake. She also denies history of hepatitis B or C or HIV. She denies any allergies or nasal sneezing or wheezing. She was prescribed one- time Flonase but shedoes not use it nasally. She denies any flank pain now but she has the same old left lower back pain since she was diagnosedwith ovarian cyst. She was recently started on clomiphene and metformin since beginning of 2023. She denies any cough or dry cough or abdominal pain or enlarged lymph nodes or Bsymptoms or any dysuria or gross hematuria and denies any melena however she hasintermittent diarrhea of loose stool orwatery once a week. She stated that she feels like she has some hair loss recently. She denies any weight loss but she gained some weight. 08/04/23: She is here for the results of her labs which were done for evaluation of her leukocytosis with a WBC count of 14.2 and mild thrombocytosis with a platelet count of 416 to 436. Our lab investigation revealed that she has positive VANDANA and low iron studies. She has normal cortisol level normal TSH and a free T4. Her BCR able by FISH came back negative. And peripheral blood flow cytometry was negative for acute or chronic leukemia. FISH for blood was negative for any abnormalities for MPN. And MPN panel was negative for calretinin, MPL and also JAK2 and JAK2 exon 12-13 mutation. Your HIV and hepatitis panel were all negative. Rheumatoid factorand RADHA were normal. She denies any abdominal pain or nausea or vomiting or flank pain or gross hematuria or dysuria. She denies any fever or chills. She denies any B symptoms as well. 02/23/24: Patient is here for 6-month follow-up for her history of iron deficiency anemia and leukocytosis. She was last time referred to rheumatology for positive VANDANA and for tingling in her hands and feet which could have been related to neuropathy) positive VANDANA. She is 10 weeks and she is follow-up for any further recommendation regarding her history of iron deficiency anemia. For the iron deficiency anemiashe was told to use ferrous sulfate 65 mg 2times daily and to repeat the labs 6months later and she is here for that now. She denied any active bleeding to her knowledge clinically from any source. Labs done on 02/14/2024 revealed that she is not anemic hemoglobin is 13.3 whichis normal. The white blood cell is mildly high at 14.0. MCV is normal now 87.8and the platelet count is 422. Her WBC has been anywhere from 10,000-14,000 within the last year. Her WBC was normal at 10.5 back in September. She is 10 weeks now. Absolute neutrophil count is 9.2 and absolute monocyte count is 1.1 with the rest of the WBC differential being normal. Her iron studies today 02/14/2024 revealed iron saturation of 17.1% with iron of 76 TIBC 445 ferritin of 52.7 and transferrin 318. Ferritin increased from 30 last time June 2023 and iron saturation increased from 11% back in June 2023. 14 point systems were reviewed and are otherwise negative. Intake Vitals/Pain Assessment 02/23/24 14:58 Weight 82.1 kg BP 125/82 Blood Pressure Location Rt brachial Position Sitting Temp 98.1 F Temp Source Temporal Pulse 73 Pulse Source NIBP Respiration 20 Pulse Oximetry (%) 100 Oxygen Delivery Method room air Are you having pain? No Intake Visit Reasons: Follow Up Allergies zinc Allergy (Verified 02/23/24 15:00) Hives - Last Reconciled 02/23/24 by TAMMIE Javier fluticasone furoate 50 mcg/actuation 2 inhalations inhalation DAILY metformin 500 mg PO TID PNV no.162-iron glu-folic acid 12-1 mg tabs PO sertraline (Zoloft) 25 mg PO DAILY Gastrointestinal Is the patient taking opioids for pain control?: No Bowel Protocol for Opioids Given: No Bowel Pattern: Regular Bowel Movement Aid(s): None Falls Fall Precaution Measures Taken: Patient in chair Nurse's Note: Patient is here for a 6 month follow up with labs for review. Patient does report that she is about10 weeks . States that per her OB her MPV is high. No other concerns voiced at time of intake. [facility] Medical History Medical History (Updated 02/23/24 @ 15:[address] MD) Positive VANDANA (antinuclear antibody) Iron deficiency Leukocytosis PMDD (premenstrual dysphoric disorder) Ovarian cyst IBS (irritable bowel syndrome) Mixed anxiety and depressive disorder Insomnia Hyperlipidemia Diarrhea Problem List clean-up per request of [facility]. [facility] Surgical History Surgical History No pertinent past surgical history Problem List clean-up per request of Phys. [facility] Family History Family History (Updated 06/26/20 @ 07:46 by Bethanie Baca RN) Grandparent Colon cancer Hypertension High cholesterol Father Hypertension High cholesterol Family/Other Hypertension High cholesterol Family/Other High cholesterol Grandparent High cholesterol Father Hypertension Social History Social History (Updated 07/14/23 @ 14:26 by Karyna Patino [facility]) Smoking status: Never smoker Within the past year, how often did you have a drink containing alcohol: monthly or less In the past 12 months, have you used illegal drugs or prescription drugs for non-medical reasons?: No Review of Systems ROS Details: All systems reviewed & no additional complaints except as documented General: Patient denied fevers, chills, rigors, weight loss or loss of appetite. Head: Patient denied any headaches or vision changes Thoracic: Patient denied any shortness of breath or cough or hemoptysis Cardiovascular patient denies any chest pain or leg edema GI: Patient denies any nausea vomiting rectal bleed diarrhea : Patient denied gross hematuria. Hematology: Patient denied any bleeding from any source. No easy bruising. Lymphatic: No enlarged LAP anywhere. Skin: Normal skin exam no rashes or suspicious lesions. Neurological patient denies any headache or dizziness or focal weakness or sensory changes. Physical Exam EXAM HEENT normocephalic atraumatic pupils are equal and round Neck supple without thyromegaly or any cervical lymphadenopathy. Chest clear to auscultation bilaterally without wheezing crackles or rhonchi Heart regular rate and rhythm S1-S2 without murmurs gallop or rub Abdomen soft nontender not distended without hepatosplenomegaly or masses clinically Extremities no edema of the lower extremities Skin without any suspicious rashes except for a small abrasion area on the rightfirst finger base that does not look infected. Lymphatic system no lymphadenopathy in the cervical area axillary areas or inguinal areas bilaterally Neurological exam patient is cooperative alert and oriented x3 no focal deficits. [facility] - [facility] LAB RESULTS Corrected WBC 14.0 X10E3/uL (3.8-11.6) H 02/14/24 11:01/17 Hgb 13.3 g/dL (11.8-15.4) 02/14/24 11:22 02/14/24 Hct 39.3 % (34.0-46.4) 02/14/24 11:22 02/14/24 MCV 87.8 fl (80-100) 02/14/24 11:02/14/24 RDW 12.6 % (11.9-15.3) 02/14/24 11:02/14/24 Plt Count 422 x10E3/uL (150-450) 02/14/24 11:22 02/14/24 Iron 76 ug/dL (50-212) 02/14/24 11:02/14/24 Iron Saturation 17.1 % (20-50) L 02/14/24 11:22 02/14/24 Ferritin 52.7 ng/mL (11.0-306.8) 02/14/24 11: 4 Dictated By: Pippa Lane MD DD/ [id number] Signed By: 02/23/24 1539 [facility]12-17-2024 NoteHNO ID: [id number] Author: YNES CHANG APRN.RAMP JOCKEY Service: ? Author Type: Nurse Practitioner Type: Progress Notes Filed: 02/01/2024 16:57 Note Text: Danelle Guido here today for a scan. This is her 1st scan. 0 1 0 History of ectopic: No, History of SAB: No, History of chemical History of pelvic/abdominal surgeries: No LMP 12/11, natural cycle, LH surge: 12/24 Latest Ref Rng 12/13/2023 01/18/2024 ABO A Rh(D) Positive Antibody Screen Negative Type+Scr Expiration 12/16/2023 23:59 Rubella IgG, Qual Positive Positive Varicella Zoster IgG, Qual Positive Positive hCG Quantitative, Blood <5.0 mIU/mL 4,528.0 (H) Dating LMP on: 12/12/2023 GA by LMP 7 w + 2 d TORRES by LMP: 09/17/2024 Ultrasound examination on: 02/01/2024 GA by U/S based upon: CRL GA by U/S 7 w + 3 d TORRES by U/S: 09/16/2024 Assigned: based on the LMP, selected on 02/01/2024 Assigned GA 7 w + 2 d Assigned TORRES: 09/17/2024 FHR 145 Plan Move on to OB Ynes Chang APRN.CNP February 01, 2024 4:55 [facility]12-17-2024 NoteHNO ID: [id number] Author: JESSICA ORTEGA MD Service: ? Author Type: Physician Type: Progress Notes Filed: 02/01/2024 10:38 Note Text: Patient is here for ultrasound. Please see image section in [facility] for results. Julianne River [facility]12-17-2024 History of Present illness Narrative* Jessica Ortega MD - 02/01/2024 10:38 AM EST Patient is here for ultrasound. Please see image section in [facility] for results. Julianne River MD documented in this encounterC[facility] NoteHNO ID: [id number] Author: SARA CAMPBELL APRN.ALANNA Service: ? Author Type: Nurse Practitioner Type: Progress Notes Filed: 01/21/2024 15:40 Note Text: [facility]FERT[facility] New SERVICE DATE: 01/21/2024 SERVICE TIME: 2:33 PM NAME: Danelle Guido VIRTUAL VISIT PROGRESS NOTE This is a virtual visit. It required patient-provider interaction for the medical decision making as documented below. Patient name and birthday verified: Yes Location of patient: home Persons Present: patient I have communicated my name and active licensure. The patient's identity and physical location were verified at the time of this visit. Either the patient or their legal indirect sales representative has been informed of the risks and benefits of -- and alternatives to -- treatment through a remote evaluation and consents to proceed with the evaluation remotely. Reason for visit: new , next steps 0 1 0 History of ectopic: No, History of SAB: No, History of chemical History of pelvic/abdominal surgeries: No LMP 12/11, natural cycle, LH surge: 12/24 Latest Ref Rng 12/13/2023 01/18/2024 ABO A Rh(D) Positive Antibody Screen Negative Type+Scr Expiration 12/16/2023 23:59 Rubella IgG, Qual Positive Positive Varicella Zoster IgG, Qual Positive Positive hCG Quantitative, Blood <5.0 mIU/mL 4,528.0 (H) (5w2d at time of labs) Dating: Currently 5w5d based off of LH surge. Symptoms: fatigue, Pain: mild cramping, able to complete ADL's Bleeding: denies Nausea/Vomiting: mild nausea Current Medications: reviewed Taking PNV: yes Taking progesterone: no Reviewed history, intake and most recent plan from primary DANIEL provider. Encounter Diagnosis ICD-10-CM 1. Early stage of Z34.90 OBSTETRIC ULTRASOUND I Plan: further labwork needed: no scan scheduled: 01/31 medications to discontinue: reviewed Schedule with OB: already scheduled Sara Campbell APRN.RAMP JOCKEY January 21, 2024 2:33 PM Please schedule the patient for the following- Location: [place] Provider: nurse Visit type: scan Reason for visit/appointment notes: scan Date: 01/31 Time (requested): 1030 If slot is full, please schedule the closest open slot. Call to patient needed: no I spent a total of 30 minutes on the date of the service which included preparing to see the patient, [id number] patient care, completing clinical documentation, obtaining and/or reviewing separately obtained history, counseling and educating the patient/family/caregiver, ordering medications, tests, or procedures, independently interpreting results (not separately reported), communicating results to the patient/family/caregiver, and care coordination (not separately reported). To patients reading this note: Please be advised the primary purpose of this note is for me to communicate with myself and other members of your medical team. Standard sentence structure is not always used. Medical terminology and medical abbreviations may be used. There may be grammatical and typographical errors missed in proofreading.[facility]12-06-[facility] History of Present illness Narrative* Sara Campbell APRN.CNP - 01/21/2024 2:33 PM EST Images from the original note were not included. [facility] INFERTILITY New SERVICE DATE: 01/21/2024 SERVICE TIME: 2:33 PM NAME: Danelle Guido VIRTUAL VISIT PROGRESS NOTE This is a virtual visit. It required patient-provider interaction for the medical decision making as documented below. Patient name and birthday verified: Yes Location of patient: home Persons Present: patient I have communicated my name and active licensure. The patient's identity and physical location wereverified at the time of this visit. Either the patient or their legal indirect sales representative has been informed of the risks and benefits of -- and alternatives to -- treatment through a remote evaluation andconsents to proceed with the evaluation remotely. Reason for visit: new , next steps 0 1 0 History of ectopic: No, History of SAB: No, History of chemical History of pelvic/abdominal surgeries: No LMP 12/11, natural cycle, LH surge: 12/24 Latest Ref Rng 12/13/2023 01/18/2024 ABO A Rh(D) Positive Antibody Screen Negative Type+Scr Expiration 12/16/2023 23:59 Rubella IgG, Qual Positive Positive Varicella Zoster IgG, Qual Positive Positive hCG Quantitative, Blood <5.0 mIU/mL 4,528.0 (H) (5w2d at time of labs) Dating: Currently 5w5d based off of LH surge. Symptoms: fatigue, Pain: mild cramping, able to complete ADL's Bleeding: denies Nausea/Vomiting: mild nausea Current Medications: reviewed Taking PNV: yes Taking progesterone: no Reviewed history, intake and most recent plan from primary DANIEL provider. Encounter Diagnosis ICD-10-CM 1. Early stage of Z34.90 OBSTETRIC ULTRASOUND I Plan: further labwork needed: no scan scheduled: 01/31 medications to discontinue: reviewed Schedule with OB: already scheduled Sara Campbell APRN.CNP January 21, 2024 2:33 PM Please schedule the patient for the following- Location: [place] Provider: nurse Visit type: scan Reason for visit/appointment notes: scan Date: 01/31 Time (requested): 1030 If slot is full, please schedule the closest open slot. Call to patient needed: no I spent a total of 30 minutes on the date of the service which included preparing to see the patient, [id number] patient care, completing clinical documentation, obtaining and/or reviewing separately obtained history, counseling and educating the patient/family/caregiver, ordering medications, fidel ts, or procedures, independently interpreting results (not separately reported), communicating results to the patient/family/caregiver, and care coordination (not separately reported). To patients reading this note: Please be advised the primary purpose of this note is for me to communicate with myself and other members of your medical team. Standard sentence structure is not always used. Medical terminology and medical abbreviations may be used. There may be grammatical and typographical errors missed in proofreading. documented in this encounterC[facility]12-05-[facility] History of Present illness Narrative* Micki Walker RN - 01/20/2024 2:45 PM EST Name: Danelel Guido Date/Time of Service:01/20/2024 2:55 PM :2000 Age: 23 y.o. Chief Complaint Chief Complaint Patient presents with Initial Visit Danelle Guido is a 23 y.o. at 5w4d with a working estimated date of delivery of 09/17/2024, byLast Menstrual Period who presents for an initial visit. OB History Para Term AB Living 2 1 SAB IAB Ectopic Multiple Live Births 1 # Outcome Date GA Lbr Félix/2nd Weight Sex Type Anes PTL Lv 2 Current 1 2023 Obstetric Comments Pap smear 10/15/21 wnl Past Medical / Surgical History Past Medical History: Diagnosis Date Anemia Anxiety Female infertility IBS (irritable bowel syndrome) Leucocytosis Ovarian cyst PMDD (premenstrual dysphoric disorder) (CMS/HCC) Polycystic ovary syndrome Past Surgical History: Procedure Laterality Date COLONOSCOPY Family History Family History Problem Relation Name Age of Onset Hypertension Mother Елена Polycystic ovary syndrome Mother Елена Depression Mother Елена Miscarriages / Stillbirths Mother Елена Hyperlipidemia Father Jair Hypertension Father Jair Colon cancer Paternal Grandmother Diabetes Paternal Grandfather Wild Social History reports that she has never smoked. She has never been exposed to tobacco smoke. She has never used smokeless tobacco. She reports that she does not currently use alcohol. She reports that she does not use drugs. Social History Tobacco Use Smoking Status Never Passive exposure: Never Smokeless Tobacco Never MEDICATIONS: Current Outpatient Medications on File Prior to Visit Medication Sig Dispense Refill ferrous sulfate 325 (65 Fe) MG tablet Take 325 mg by mouth in the morning. Take with meals. metFORMIN (Glucophage) 500 MG tablet TAKE ONE TABLET BY MOUTH THREE TIMES A DAY WITH A MEAL 90 tablet 11 Vit w/Cq-Aytydvqxk-YD (PNV PO) Take by mouth sertraline (Zoloft) 25 MG tablet TAKE 1 TABLET BY MOUTH DAILY 30 tablet 3 [DISCONTINUED] clomiPHENE (Clomid) 50 MG tablet Take 2 tablets (100 mg) PO on days 5-9 of cycle 10 tablet 0 [DISCONTINUED] desvenlafaxine (Pristiq) 50 MG 24 hr tablet Take 1 tablet (50 mg) by mouth Daily (Patient taking differently: Take 25 mg by mouth Daily) 30 tablet 5 [DISCONTINUED] hydrOXYzine HCl (Atarax) 25 MG tablet Take 1 tablet (25 mg) by mouth every 6 (six) hours if needed for anxiety 30 tablet 0 No current facility-administered medications on file prior to visit. Allergies Allergies Allergen Reactions Zinc Hives Bacid Dairy Other Reaction(s): Bowel problem Patient reports nausea and no vomiting. Discussed smaller meals, nikolay products, OTC Vitamin B6 50mg BID and Unisom 25mg BID Patient reports taking daily vitamins. Genetic and Chromosomal testing discussed. Patient expressed interest in having these drawn. Discussed [facility] handout on how to check insurance for financial responsibility. Patient verbalizes understanding. Provided patient with handout. Advised patient to wait until 11-12 weeks of , after her first appointment with ALANIS and she knows her financial responsibility before having these drawn. Patient verbalizes understanding. Orders placed. Last PAP: 10/15/21 WNL ASSESSMENT / PLAN Labs Ordered. Handed patient printed copy of orders to take with her to [facility] to have drawn today. Appointments scheduled for OBUS 02/20 and with KER 03/07. 01/20/2024 2:55 PM documented in this encounterKansas City [facility] [id number] Telephone encounter Note* Telephone Encounter - Katie Holbrook RN - 01/18/2024 9:13 AM EST Patient calls with positive urine test. 0 0 0 History of ectopic: No History of SAB: No History of pelvic/abdominal surgeries: No LMP 12/11, fertility medications used this cycle NONE, date of LH surge: 12/24 Latest Ref Rng 12/13/2023 ABO A Rh(D) Positive Antibody Screen Negative Type+Scr Expiration 12/16/2023 23:59 Rubella IgG, Qual Positive Positive Varicella Zoster IgG, Qual Positive Positive Current medications: Current Outpatient Medications on File Prior to Visit Medication Sig metFORMIN (GLUCOPHAGE) 500 mg tablet One tablet three times daily with meals. sertraline (ZOLOFT) 25 mg tablet Take 25 mg by mouth. No current facility-administered medications on file prior to visit. Advised normal symptoms of and s/s of need for follow up. Katie Holbrook RN January 18, 2024 9:14 AM [facility]12-03-2024 Miscellaneous Notes* Telephone Encounter - Katie Holbrook RN - 01/18/2024 9:13 AM EST Patient calls with positive urine test. 0 0 0 History of ectopic: No History of SAB: No History of pelvic/abdominal surgeries: No LMP 12/11, fertility medications used this cycle NONE, date of LH surge: 12/24 Latest Ref Rng 12/13/2023 ABO A Rh(D) Positive Antibody Screen Negative Type+Scr Expiration 12/16/2023 23:59 Rubella IgG, Qual Positive Positive Varicella Zoster IgG, Qual Positive Positive Current medications: Current Outpatient Medications on File Prior to Visit Medication Sig metFORMIN (GLUCOPHAGE) 500 mg tablet One tablet three times daily with meals. sertraline (ZOLOFT) 25 mg tablet Take 25 mg by mouth. No current facility-administered medications on file prior to visit. Advised normal symptoms of and s/s of need for follow up. Katie Holbrook RN January 18, 2024 9:14 AM documented in this encounterC[facility]11-18-2024 Instructions* Patient Instructions* Sara Campbell APRN.RAMP JOCKEY - 01/03/2024 6:45 PM EST Images from the original note were not included. Hi Danelle, Here is a summary of what we reviewed today. Please let me know if you have any questions. ~Brenda Campbell APRN.[facility] [phone] Your Treatment Plan: Letrozole, midcycle ultrasound/labs, trigger shot, IUI x 3- 4 cycles If you are not after 3 cycles, please schedule an appointment with Dr. Arthur. Pending Items on IUI Checklist: IUI Financial Clearance - your chart was sent to the medical front desk coordinator today to start the prior authorization process. Lexia: IUI Procedure consent form - sent to you via [employer] (I forgot to mention this, easy to sign on [employer] - just says we reviewed the procedure and you give us permission.) Due for annual exam/pap test - Please either find records of annual exam in the last 1 year, or getscheduled if you are due. Intrauterine Insemination timed with Midcycle Monitoring Please note: Insurance authorization/financial clearance is required for the follicular monitoring ultrasounds as well as the IUI. Please call the office as soon as you make the decision to proceedwith this treatment plan to start the authorization/financial clearance process. If insurance authorization is not complete by the time you need services, you can choose to pay out of pocket, or waituntil your next cycle to proceed with your treatment plan. If your insurance does not cover the follicular monitoring scans, ask about a self-pay option. Please be advised that payment will be neededto schedule. Timing of ultrasound Call the office with the first business day of your menstrual cycle. We need to make sure you have the prescriptions needed for your cycle and that your ultrasound is scheduled at the right time. You will be scheduled for a follicular scan, typically done between cycle days 10-14, depending on the medication you take and your cycle length. It is a vaginal ultrasound that gives us information about the size and number of follicles growing in your ovaries and the thickness of the uterine lining. Your doctor may order blood work to be drawn at the time of your midcycle ultrasound. We will notify you if blood work is needed. Timing of trigger Shot & IUI Based off your ultrasound results, you will be assigned a trigger date and IUI date. We cannot trigger small follicles, though. If your follicles are too small, you may need to come infor another follicular scan. The trigger shot is a simple subcutaneous injection. A video demonstration can be found here: http://bit.ly/ovidrel Please call your insurance to verify coverage of Ovidrel and let us know your insurance s preferredpharmacy. Avoid Ibuprofen or similar medications (Advil, Motrin, Anaprox, or Aleve) for 2 days after the trigger shot as they may interfere with ovulation. Please use Tylenol instead. Collection for IUI On site: Collection rooms may be available on site. Children cannot be permitted in the collection rooms. Please make appropriate childcare arrangements for the day of your IUI. If you have a compromised sperm count, please ask your medical team (MD/SANDFILL OPERATOR SURFACE/PA) if it is important for you to collect on site. If you live more than 2 hours away, you need to collect on site. Please verify if you intend to collect on site with the nursing scheduler. At home: If you live within 2 hours of the office and you have a normal sperm count, you can collect at home. Obtain a universal container from the doctor s office, the Andrology Lab or from a pharmacy. Please avoid lubricants as they may kill sperm. You may use Pre-Seed as this does not harm sperm. Please keep the container at body temperature in an upright position until you arrive at the lab. Men are required to drop off their own sample. No one else can drop off the sample for him. Scheduling your IUI For all locations: when you are informed of your IUI date, please call [phone] between 8am [id number] to schedule your appointments. Inseminations are done by appointment only. You will schedule an appointment for sperm drop off/collection, and an appointment for the IUI procedure. IUI is available at the following locations: [place]: [address] [place] [address] Wednesday - Wednesday, /partner IUI only. On the day of your IUI the collection, drop off is the 2nd floor Urology/Andrology. The sperm wash takes 60-90 minutes. dredge operator supervisor the sample from 2nd floor Urology and bring it up to 3rd floor OB specialties. Check in at the 3rd floor Gynecology desk for the insemination. [place] [facility]: [address] [facility], [address] [place] [address] Available for /partner IUI and donor sperm IUI. Available every day, including weekends and holidays (except [place] and New Years.) The sperm wash takes 60-90 minutes. Check in at [address] [facility] for collection/drop off and for IUI. Weekend/Holiday IUI Scheduling If for some reason, you weren t able to schedule your IUI during normal business hours, please [phone] between 8am and 12pm. If you call after 12pm, we may not be able to schedule your appointment. There will be a pre-recorded greeting announcing the office is closed. Please stay on the line for the answering service. They will put a page through to the staff on-call. Return calls may take an hour or longer as we are in the office doing procedures. We will return your call at our earliest convenience and give you appointment times for the following day. Due to new guidelines, we have a limited number of procedure slots available on the weekend. After IUI: take a home test 14-17 days after IUI (even if you bleed) and call the office with updates. When you use a trigger shot, this medication can give you a false positive test if you test too early. It is important to wait the recommended time to test for . If you are , we will order blood tests, schedule a Virtual Visit and perform an ultrasound before you graduate from our department. If you get your period and want to do another IUI: Call the medical front desk coordinator to make sure you are financially cleared. Ask to speak to an OZIEL to confirm your treatment plan. Important phone number: [phone] Intrauterine Insemination Fact Sheet From the Patient Education Website of the [place] [employer] Intrauterine insemination (IUI) When a woman conceives naturally, sperm travel from the vagina through the cervix (narrow, lower part of the womb), into the uterus (womb), and up into one of the fallopian tubes. If sperm arrive in a tube soon after the release of the egg from the ovary (ovulation); the sperm and egg can meet and unite (fertilization) in the tube. The cervix naturally limits the number of sperm that enter the uterus. This means that only a smallpercentage of the sperm in the ejaculate actually make their way into the fallopian tubes. Intrauterine insemination (IUI) is a procedure that places sperm past the cervix and in a woman s uterus around the time of ovulation. This makes the passage to the fallopian tubes much shorter, and there is a better chance that more sperm will encounter the egg. The goal of this procedure is to improve a womans chance of getting . When is IUI helpful? There are many reasons why couples experience difficulty getting . IUI may be useful for some of them. Unexplained causes. The most common use for IUI is when no cause for the infertility is found. Infertile women sometimes take medications (by mouth or as an injection) that cause their ovaries to mature several eggs at once. The goal is to increase the chance of by putting more sperm in contact wtih more eggs. Cervical stenosis or abnormalities. IUI is helpful when a woman s cervix has scarring that preventsthe sperm from entering the uterus from the vagina. This may be seen in women who have had surgery on their cervix (cryosurgery, cone biopsy, Loop Electrosurgical Excision Procedure [LEEP], etc.). IUI can also assist when a woman has a cervix that is shaped abnormally in a way that prevents the passage of sperm. Problems with sperm delivery. IUI can also be used for couples in which the male partner cannot become or stay erect or is not able to ejaculate effectively, or at all. For example, retrograde ejaculation is when the sperm are released backward into the bladder, instead of through the penis, at thetime of male orgasm. Prior surgeries or medical conditions, such as diabetes, can cause retrograde ejaculation. Also, IUI may help if the man has an abnormal urethral opening (opening of the penis). Lack of ovulation (anovulation). Most of the time women who do not release an egg regularly (ovulate) can become through intercourse. Sometimes, IUI may be helpful. Fertility preservation. Men may collect and freeze (cryopreserve) their sperm for future use beforehaving a vasectomy, testicular surgery, or radiation/chemotherapy treatment for cancer. The sperm may be thawed later and used for IUI. Third-constitution party reproduction. IUI is used when couples use sperm from a man who is not the woman s partner to have a baby. This is called donor insemination (DI). DI is done when the male partner has no sperm or when the sperm quality is so low that his sperm cannot be used for conception, and in vitrofertilization is not an option. DI can also be used if the man has certain genetic diseases that hedoes not want to pass on to his children. Single women or lesbian couples who want to have a baby may also consider DI. How are sperm collected? The sperm needed for IUI can be collected in several ways. Most commonly, the man masturbates into a sterile glass or plastic cup that is provided by the doctor s office or andrology laboratory, a laboratory that specializes in dealing with male health issues. Sperm can also be collected during sexin a special condom that the doctor provides. If a man has retrograde ejaculation, the sperm can beretrieved in the laboratory from urine he has collected. Men who have a difficult time with erection or ejaculation despite using medications, as well as men with a spinal cord injury, may be able to produce a sperm sample with the help of vibratory stimulation or electroejaculation. Vibratory stimulation commonly takes place in an office and uses a handheld vibratory device. Electroejaculation uses electrical stimulation in order to produce a sperm specimen. For men with a complete spinal cord injury, electroejaculation is commonly performed in the office, while patients with an incomplete spinal cord injury may have an electroejaculation procedure performed under anesthesia in the operating room. For more information on these procedures, see the ASRM fact sheet titled Sperm retrieval in men with spinal cord injury. How is IUI done? Once collected, the semen sample is then washed in the laboratory to concentrate the sperm and remove the seminal fluid (seminal fluid can cause severe cramping in the woman). This process can take up to 2 hours to complete. IUI is performed near the time that the woman is ovulating. The IUI procedure is relatively simple and only takes a few minutes once the semen sample is ready. The woman lies on an examining table and the clinician inserts a speculum into her vagina to see her cervix. A catheter (narrow tube) is inserted through the cervix into the uterus and the washed semen sample is slowly injected. Usually this procedure is painless, but some women have mild cramps. Some women may experience spotting for a day or two after the IUI. Does it work? The success will vary depending on the underlying cause of the infertility. IUI works best in patients with unexplained infertility, women with a cervix that limits the passage of sperm, and men who are unable to ejaculate effectively. For example, for unexplained infertilty, the rate with IUI is double that over no treatment. IUI does not work as well for men who produce few sperm or have severe abnormalities with their sperm and does not help women who have severe fallopian tube disease, moderate to severe endometriosis,or a history of pelvic (lower belly) infections. Other fertility treatments are better for these patients. Overall, if inseminations are performed every month with fresh or frozen sperm, success rates can be better. The success rates depend on whether fertility medications are used, age of the woman, and infertility diagnosis, as well as other factors. Are there risks? If a woman is taking fertility medications to increase the number of eggs when she has an IUI, her chance of getting with twins, triplets, or more is greater than if she were not taking fertility medications. Having an IUI does not increase the risk of defects. The chance of defects in all children is 2% to 4% whether conceived naturally or from IUI. The risk of developing an infection after an IUI is small. Revised 2016 For more information on this and other reproductive health topics, visit [email or web address].org documented in this [facility] NoteHNO ID: [id number] Author: SARA CAMPBELL APRN.CNP Service: ? Author Type: Nurse Practitioner Type: Progress Notes Filed: 01/03/2024 18:50 Note Text: REPRODUCTIVE ENDOCRINOLOGY AND INFERTILITY IUI TEACH SERVICE DATE: 01/03/2024 SERVICE TIME: 8:15 AM NAME: Danelle Guido VIRTUAL VISIT PROGRESS NOTE This is a virtual visit. It required patient-provider interaction for the medical decision making as documented below. Patient name and birthday verified: Yes Location of patient: home Persons Present: patient I have communicated my name and active licensure. The patient's identity and physical location were verified at the time of this visit. Either the patient or their legal indirect sales representative has been informed of the risks and benefits of -- and alternatives to -- treatment through a remote evaluation and consents to proceed with the evaluation remotely. Reason for visit: IUI Teach [facility] Primary DANIEL Physician: Dr. Sandhya SANCHEZ IUI Treatment Plan: Tubal Patency Testing: HSG date: 2023 within normal limits Sperm Source:Partner Fresh Treatment Protocol: Letrozole dose 2.5 mg CD 2-6 Monitoring Plan: Ultrasound monitoring CD 10-12 with labs Ovidrel Trigger: Yes Supplemental Progesterone: None Comments: None Partner's name/MRN: Jerry Guido, IUI Checklist Done Not Done In Process [x] [] [] Consultation [x] [] [] Registration of patient and partner [] [] [x] Financial Clearance [x] [] [] IUI Patient Education - ASRM IUI Patient Fact Sheet Sent via [employer] [x] [] [] IUI Consent Form [x] [] [] Sperm Wash Orders Filed [x] [] [] labs: TANDS, Rubella IgG, Varicella IgG, HbA1c [x] [] [] Patient STI Testing [x] [] [] Patient Genetic Carrier Screening - negative [x] [] [] HSG [x] [] [] SIS - 12/21/2023 [] [x] [] [facility] - pap 09/2021 [x] [] [] Semen Analysis [x] [] [] Partner STI Testing [x] [] [] Partner Genetic Carrier Screening - negative Latest Ref Rng 12/13/2023 12/21/2023 ABO A Rh(D) Positive Antibody Screen Negative Type+Scr Expiration 12/16/2023 23:59 HIV 12 Combo (Ag/Ab) Nonreactive Nonreactive HIV 1/2 Ab -- HIV Interpretation -- Neisseria gonorrhoeae (GC) Negative for Neisseria gonorrhoeae by amplification Negative for Neisseria gonorrhoeae by amplification Chlamydia trachomatis (CT) Negative for Chlamydia trachomatis by amplificaton Negative for Chlamydia trachomatis by amplification Hemoglobin A1C 4.3 - 5.6 % 5.3 Estimated Average Glucose mg/dL 105 Syphilis Screen Result Nonreactive Nonreactive Syphilis Interpretation Cannot exclude recent Treponemal infection if specimen collected within 7-10 days after appearance of suspect lesions or 2-3 weeks after an exposure. Clinical correlation is required. Hep C Antibody IA Negative Negative Hep B Surface Ag Negative Negative Hep B Core Ab, Total Negative Negative Rubella IgG, Qual Positive Positive Varicella Zoster IgG, Qual Positive Positive Vitamin D 25 Hydroxy 31.0 - 80.0 ng/mL 28.2 (L) Legend: (L) Low Latest Ref Rng 12/13/2023 HIV 12 Combo (Ag/Ab) Nonreactive Nonreactive HIV 1/2 Ab -- HIV Interpretation -- Neisseria gonorrhoeae (GC) Negative for Neisseria gonorrhoeae by amplification Negative for Neisseria gonorrhoeae by amplification Chlamydia trachomatis (CT) Negative for Chlamydia trachomatis by amplificaton Negative for Chlamydia trachomatis by amplification Syphilis Screen Result Nonreactive Nonreactive Syphilis Interpretation Cannot exclude recent Treponemal infection if specimen collected within 7-10 days after appearance of suspect lesions or 2-3 weeks after an exposure. Clinical correlation is required. Hep C Antibody IA Negative Negative Hep B Surface Ag Negative Negative Hep B Core Ab, Total Negative Negative Latest Ref Rng 11/17/2023 Date Of Analysis 10.2.24 Semen Volume >=1.50 mL 2.90 Semen pH >=7.2 7.6 Color, Semen Jeffers Opalescent Semen Viscosity Normal Concentration >=15.00 M/mL 177.50 Total Count Sperm M 514.75 % Motile Sperm (%AR + %SANDFILL OPERATOR SURFACE) >=40 % 82 Forward Progression 4 = Rapid unidirectional Total Motile Sperm M 422.10 Sperm Diff, [place] >=4 % 4 Undiff Rnd Cell W Rout Semen Anly <1.00 M/mL 0.90 Abstinence Time Days 4.0 Collection Time 1245 Receipt Time 1336 Semen Age 0 - 60 Minutes 55 Semen Comment 2 Makler chamber used. Moderate sperm agglutination seen. Mild debris seen. Assessment AND Plan Assessment: Fertility Planning Plan: IUI checklist reviewed with patient. Episode started AND checklist updated. Pending items: annual exam Information sent via [employer]. Patient and partner to complete checklist and schedule IUI Clearance appointment. Sara Campbell APRN.CNP January 03, 2024 8:15 AM I spent a total of 40 minutes on the date of the service which included preparing to see the patient, [id number] patient care, completing clinical documentation, obtainin (more content not included)...[facility] 01-03-[facility] History of Present illness Narrative* Sara Campbell APRN.ALANNA - 01/03/2024 8:15 AM EST Images from the original note were not included. REPRODUCTIVE ENDOCRINOLOGY AND INFERTILITY IUI TEACH SERVICE DATE: 01/03/2024 SERVICE TIME: 8:15 AM NAME: Danelle Guido VIRTUAL VISIT PROGRESS NOTE This is a virtual visit. It required patient-provider interaction for the medical decision making as documented below. Patient name and birthday verified: Yes Location of patient: home Persons Present: patient I have communicated my name and active licensure. The patient's identity and physical location wereverified at the time of this visit. Either the patient or their legal indirect sales representative has been informed of the risks and benefits of -- and alternatives to -- treatment through a remote evaluation andconsents to proceed with the evaluation remotely. Reason for visit: IUI Teach [facility] Primary DANIEL Physician: Dr. Sandhya SANCHEZ IUI Treatment Plan: Tubal Patency Testing: HSG date: 2023 within normal limits Sperm Source:Partner Fresh Treatment Protocol: Letrozole dose 2.5 mg CD 2-6 Monitoring Plan: Ultrasound monitoring CD 10-12 with labs Ovidrel Trigger: Yes Supplemental Progesterone: None Comments: None Partner's name/MRN: Jerry Guido, IUI Checklist Done Not Done In Process [x] [] [] Consultation [x] [] [] Registration of patient and partner [] [] [x] Financial Clearance [x] [] [] IUI Patient Education - ASRM IUI Patient Fact Sheet Sent via [employer] [x] [] [] IUI Consent Form [x] [] [] Sperm Wash Orders Filed [x] [] [] labs: T&S, Rubella IgG, Varicella IgG, HbA1c [x] [] [] Patient STI Testing [x] [] [] Patient Genetic Carrier Screening - negative [x] [] [] HSG [x] [] [] SIS - 12/21/2023 [] [x] [] [facility] - pap 09/2021 [x] [] [] Semen Analysis [x] [] [] Partner STI Testing [x] [] [] Partner Genetic Carrier Screening - negative Latest Ref Rng 12/13/2023 12/21/2023 ABO A Rh(D) Positive Antibody Screen Negative Type+Scr Expiration 12/16/2023 23:59 HIV 12 Combo (Ag/Ab) Nonreactive Nonreactive HIV 1/2 Ab -- HIV Interpretation -- Neisseria gonorrhoeae (GC) Negative for Neisseria gonorrhoeae by amplification Negative for Neisseria gonorrhoeae by amplification Chlamydia trachomatis (CT) Negative for Chlamydia trachomatis by amplificaton Negative for Chlamydia trachomatis by amplification Hemoglobin A1C 4.3 - 5.6 % 5.3 Estimated Average Glucose mg/dL 105 Syphilis Screen Result Nonreactive Nonreactive Syphilis Interpretation Cannot exclude recent Treponemal infection if specimen collected within 7-10 days after appearance of suspect lesions or 2-3 weeks after an exposure. Clinical correlation is required. Hep C Antibody IA Negative Negative Hep B Surface Ag Negative Negative Hep B Core Ab, Total Negative Negative Rubella IgG, Qual Positive Positive Varicella Zoster IgG, Qual Positive Positive Vitamin D 25 Hydroxy 31.0 - 80.0 ng/mL 28.2 (L) Legend: (L) Low Latest Ref Rng 12/13/2023 HIV 12 Combo (Ag/Ab) Nonreactive Nonreactive HIV 1/2 Ab -- HIV Interpretation -- Neisseria gonorrhoeae (GC) Negative for Neisseria gonorrhoeae by amplification Negative for Neisseria gonorrhoeae by amplification Chlamydia trachomatis (CT) Negative for Chlamydia trachomatis by amplificaton Negative for Chlamydia trachomatis by amplification Syphilis Screen Result Nonreactive Nonreactive Syphilis Interpretation Cannot exclude recent Treponemal infection if specimen collected within 7-10 days after appearance of suspect lesions or 2-3 weeks after an exposure. Clinical correlation is required. Hep C Antibody IA Negative Negative Hep B Surface Ag Negative Negative Hep B Core Ab, Total Negative Negative Latest Ref Rng 11/17/2023 Date Of Analysis 11.17.23 Semen Volume >=1.50 mL 2.90 Semen pH >=7.2 7.6 Color, Semen Jeffers Opalescent Semen Viscosity Normal Concentration >=15.00 M/mL 177.50 Total Count Sperm M 514.75 % Motile Sperm (%AR + %SANDFILL OPERATOR SURFACE) >=40 % 82 Forward Progression 4 = Rapid unidirectional Total Motile Sperm M 422.10 Sperm Diff, [place] >=4 % 4 Undiff Rnd Cell W Rout Semen Anly <1.00 M/mL 0.90 Abstinence Time Days 4.0 Collection Time 1245 Receipt Time 1336 Semen Age 0 - 60 Minutes 55 Semen Comment 2 Makler chamber used. Moderate sperm agglutination seen. Mild debris seen. Assessment & Plan Assessment: Fertility Planning Plan: IUI checklist reviewed with patient. Episode started & checklist updated. Pending items: annual exam Information sent via [employer]. Patient and partner to complete checklist and schedule IUI Clearance appointment. Sara Campbell APRN.RAMP JOCKEY January 03, 2024 8:15 AM I spent a total of 40 minutes on the date of the service which included preparing to see the patient, [id number] patient care, completing clinical documentation, obtaining and/or reviewing separately obtained history, counseling and educating the patient/family/caregiver, ordering medications, fidel ts, or procedures, independently interpreting results (not separately reported), communicating results to the patient/family/caregiver, and care coordination (not separately reported). To patients reading this note: Please be advised the primary purpose of this note is for me to communicate with myself and other members of your medical team. Standard sentence structure is not always used. Medical terminology and medical abbreviations may be used. There may be grammatical and typographical errors missed in proofreading. documented in this [facility] NoteHNO ID: [id number] Author: JESSICA ORTEGA MD Service: ? Author Type: Physician Type: Progress Notes Filed: 12/23/2023 07:30 Note Text: Patient is here for ultrasound. Please see image section in Epic for results. Julianne River [facility]11-07-2024 History of Present illness Narrative* Jessica Ortega MD - 12/23/2023 7:29 AM EST Patient is here for ultrasound. Please see image section in Epic for results. Julianne River MD documented in this encounterC[facility]24 NoteHNO ID: [id number] Author: SARA CAMPBELL APRN.CNP Service: ? Author Type: Nurse Practitioner Type: Procedures Filed: 12/23/2023 07:30 Note Text: Danelle Guido is a 23 year old here for SIS. Referred by: Barbara Matos [address] [place] [address] Chief Complaint: SIS LMP: Patient's last menstrual period was 12/12/2023. HCG: negative UNIVERSAL PROTOCOL / SAFETY CHECKLIST Procedure to be Performed: SIS Sign In: A Moment of CARE was completed. Personnel directly involved with the procedure wore the appropriate PPE (Personal Protective Equipment). Patient/Surrogate Stated/Verified: PATIENT VERIFIED(optional for EMERGENT procedures): Patient name, Date of , Relevant allergies, and The intended procedure Time Out Communication: Intended patient and procedure match the source documents. Consent documented and matches the intended procedure. Sign Out: SIGN OUT (optional for EMERGENT procedures): No specimen collected. All instruments, equipment, possible retained foreign bodies accounted for. Sara Campbell APRN.CNP PROCEDURE: EXTERNAL GENITALIA: Normal in appearance without lesions VAGINA: Normal in appearance without lesions Speculum placed into the vagina with excellent visualization of the cervix. Cervix cleaned with hibiclens. SIS catheter inserted into the uterus without difficulty. Speculum removed and 15mL sterile saline injected into the uterine cavity under ultrasound guidance. Procedure Summary: Patient tolerated procedure well. See ViewPoint for procedure results. Julianne River [facility]11-06-2024 Procedure note* Sara Campbell APRN.CNP - 12/22/2023 9:59 PM EST Danelle Guido is a 23 year old here for SIS. Referred by: Barbara Matos [address] [place] [address] Chief Complaint: SIS LMP: Patient's last menstrual period was 12/12/2023. HCG: negative UNIVERSAL PROTOCOL / SAFETY CHECKLIST Procedure to be Performed: SIS Sign In: A Moment of CARE was completed. Personnel directly involved with the procedure wore the appropriate PPE (Personal Protective Equipment). Patient/Surrogate Stated/Verified: PATIENT VERIFIED(optional for EMERGENT procedures): Patient name, Date of , Relevant allergies, and The intended procedure Time Out Communication: Intended patient and procedure match the source documents. Consent documented and matches the intended procedure. Sign Out: SIGN OUT (optional for EMERGENT procedures): No specimen collected. All instruments, equipment, possible retained foreign bodies accounted for. Sara Campbell APRN.CNP PROCEDURE: EXTERNAL GENITALIA: Normal in appearance without lesions VAGINA: Normal in appearance without lesions Speculum placed into the vagina with excellent visualization of the cervix. Cervix cleaned with hibiclens. SIS catheter inserted into the uterus without difficulty. Speculum removed and 15mL sterile saline injected into the uterine cavity under ultrasound guidance. Procedure Summary: Patient tolerated procedure well. See ViewPoint for procedure results. Julianne River MD [facility]11-[facility] Procedure note* Sara Campbell APRN.CNP - 12/22/2023 9:59 PM EST Danelle Guido is a 23 year old here for SIS. Referred by: Barbara Matos [address] [place] [address] Chief Complaint: SIS LMP: Patient's last menstrual period was 12/12/2023. HCG: negative UNIVERSAL PROTOCOL / SAFETY CHECKLIST Procedure to be Performed: SIS Sign In: A Moment of CARE was completed. Personnel directly involved with the procedure wore the appropriate PPE (Personal Protective Equipment). Patient/Surrogate Stated/Verified: PATIENT VERIFIED(optional for EMERGENT procedures): Patient name, Date of , Relevant allergies, and The intended procedure Time Out Communication: Intended patient and procedure match the source documents. Consent documented and matches the intended procedure. Sign Out: SIGN OUT (optional for EMERGENT procedures): No specimen collected. All instruments, equipment, possible retained foreign bodies accounted for. Sara Campbell APRN.RAMP JOCKEY PROCEDURE: EXTERNAL GENITALIA: Normal in appearance without lesions VAGINA: Normal in appearance without lesions Speculum placed into the vagina with excellent visualization of the cervix. Cervix cleaned with hibiclens. SIS catheter inserted into the uterus without difficulty. Speculum removed and 15mL sterile saline injected into the uterine cavity under ultrasound guidance. Procedure Summary: Patient tolerated procedure well. See ViewPoint for procedure results. Julianne River MD documented [facility] Instructions* Patient Instructions* Marina Arthur MD - 12/14/2023 8:58 AM EDT Thank you for visiting the [facility]. Our team looks forward to providing you with excellent care to help you achieve your family goals. The best way to contact me is by Questli. Important phone numbers: [facility] main line: [phone]. Wednesday-Wednesday 8 AM - 4:30 PM. This number is for questions or scheduling related to your fertility treatments. For patients wanting to schedule surgery or questions related to your surgery call [phone]. After hours emergency only Physician line: [phone] For patients needing to create a medical record/chart for partner: [phone] 2. The following are next steps: - Labs are ordered for you for any [facility]. - Sonohysterosalpingography (also called saline ultrasound or SIS): This is a procedure using ultrasound to evaluate the uterine cavity (inside of your uterus). It can also confirm if your fallopian tubes are open and inspects the ovaries. Our staff is working on insurance authorization for the procedure. This study needs to be done early in your menstrual cycle (after your period ends but beforeovulation). Please call [phone] when your period starts to schedule your procedure between cycle days 5-11. One hour prior to having the test, take Ibuprofen 600-800 mg if you do not have any contraindications to this medication. There can be mild cramping with this procedure but patients gener ally tolerate it very well. - I have submitted your IUI treatment team to our financial team for authorization. Please make a virtual visit with Jyothi Pozo or Tali Abbasi for an IUI teach visit. It will bharath virtual visit. Please call to schedule: [phone] 3. Follow up visit: 6-[address] Arthur (may be virtual). Please call number above to schedule. documented in this encounterC[facility]10-29-2024 Plan of care note* DANIEL Plan Note - Marina Arthur MD - 12/14/2023 8:56 AM EDTSummary: IUI Treatment Plan: IUI #1 DANIEL IUI Treatment Plan: Tubal Patency Testing: HSG date: 2023 within normal limits Sperm Source:Partner Fresh Treatment Protocol: Letrozole dose 2.5 mg CD 2-6 Monitoring Plan: Ultrasound monitoring CD 10-12 Ovidrel Trigger: Yes Supplemental Progesterone: None Comments: None Marina Arthur MD 12/14/2023 [facility] Miscellaneous Notes* DANIEL Plan Note - Marina Arthur MD - 12/14/2023 8:56 AM EDTSummary: IUI Treatment Plan: IUI #1 DANIEL IUI Treatment Plan: Tubal Patency Testing: HSG date: 2023 within normal limits Sperm Source:Partner Fresh Treatment Protocol: Letrozole dose 2.5 mg CD 2-6 Monitoring Plan: Ultrasound monitoring CD 10- Ovidrel Trigger: Yes Supplemental Progesterone: None Comments: None Marina Arthur MD 12/14/2023 documented in this encounterC[facility]10-28-[facility]24 NoteHNO ID: [id number] Author: MARINA ARTHUR MD Service: ? Author Type: Physician Type: Progress Notes Filed: 12/14/2023 08:59 Note Text: REPRODUCTIVE ENDOCRINOLOGY AND INFERTILITY NEW PATIENT CLINIC NOTE REFERRED BY: Consultation requested by Dr. Patel for an opinion regarding infertility. My final recommendations will be communicated back to the requesting physician by way of shared Medical record or letter to requesting physician via US mail. Subjective: Patient ID: Danelle Guido is a 23 year old female with a chief complaint of infertility. HPI She is kindly referred by Dr. Patel. She is a very pleasant 23 year old white woman, a , who presents for consultation for infertility. Seen with her for new patient infertility consultation. They have been for 4.5 years. Actively trying to conceive x 1 year but not preventing /off control x 2.5 years. Goal family size of 3 children. Initially told she has polycystic ovary syndrome (PCOS) approximately 2 years ago when she developed unilateral pain and was found to have hemorrhagic cyst on L ovary; repeat US showed polycystic morphology of ovaries. However she does not recall having labs that showed elevated testosterone and denies clinical signs of hyperandrogenism. Reports regular predictable cycles, q32 days or so. +OPKs with surge CD17-20. Does have hx pre-diabetes, taking metformin 500 TID with normal A1c recently. Mom has hx PCOS. Sought initial evaluation for fertility with turnaround planner in [place]. Had HSG done a few months ago, told normal. No recent ultrasound done. had semen analysis that was within normal limits. Biochemical x1 in 05/2023. Has done 5 cycles of clomid/+OPK/TIC. 50 x 4 cycles -> 100. Past Medical History: PAST MEDICAL HISTORY Diagnosis Date Anemia Female infertility Insulin resistance Past Surgical History: History reviewed. No pertinent surgical history. OB History: 06/2023 Biochemical [employer] History: Menstrual cycle pattern: Regular periods (25-34 days in length) Cycle length (days): 28-31 Days of bleedin-8 OPK use: Yes, able to detect Dysmenorrhea: Rarely Dyspareunia: No STI history: None Last Pap Smear Date: 09/15/22 Last pap outcome: Normal History of abnormal PAP: No, all prior PAP smears have been normal Procedure for abnormal pap smear: Colposcopy History of abnormal mammogram: No Prior chemotherapy or radiation: No Allergies: No Known Allergies Medications: Current Outpatient Medications Medication Sig Dispense Refill metFORMIN (GLUCOPHAGE) 500 mg tablet One tablet three times daily with meals. sertraline (ZOLOFT) 25 mg tablet Take 25 mg by mouth. No current facility-administered medications for this visit. Family History: family history includes Colon Cancer in her paternal grandfather. 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 Male Partner History: Partner Information * If Partner is female, check box for associated questions.: No Partner's Name: Jerry Guido Partner's : 99 Partner's Partner's Ethnicity: Partner's Race: Legally ?: Yes Do they have children together?: No Any other Previous Pregnancies?: Yes Date of last : 06/2023 Number of cigarettes smoked daily: None Marijuana use: No Number of alcoholic beverages: 5-10per week Medications: none Pertinent Medical Hx: none Pertinent Surgical Hx: none Pertinent Genetic Hx: none Fathered children prior relationship: No Partner has had: Semen analysis Partner had fever in the last 4 months: No Partner has [facility] medical chart: Yes Partner had prior fertility testing or treatment elsewhere: No Basic Semen Analysis: Component Ref Range AND Units 3 wk ago Date of Analysis 11.17.23 Semen Volume >=1.50 mL 2.90 pH, Semen >=7.2 7.6 Color, Semen Jeffers Opalescent Semen Viscosity Normal Sperm Concentration >=15.00 M/mL 177.50 Total Sperm Count M 514.75 % Motile Sperm (%AR + %SANDFILL OPERATOR SURFACE) >=40 % 82 Forward Progression 4 = Rapid unidirectional Total Motile Sperm M 422.10 % Normal Forms, WHO (5th ed.) >=4 % 4 Undiff Round Cells <1.00 M/mL 0.90 Abstinence Time Days 4.0 Collection Time 1245 Receipt Time 1336 Time to Analysis 0 - 60 Minutes 55 Semen Comment 2 Makler chamber used. Moderate sperm agglutination seen. Mild debris seen. Genetic Screening: Neither patient nor partner have seen a genetic counselor for any reason. They are not related by blood. There is no family history of Down syndrome or any other chromosomal abnormality. No family history of the following: mental retardation, learning problems, developmental delay, cleft lip or palate, spina bifida, cystic fibrosis, muscular dystrophy, hemophilia, blood disorders such as sickle cell, kidney disease or Henderson disease. No history of stillbirth or three or more miscarria (more content not included)... [facility]10[facility] History of Present illness Narrative* Marina Arthur MD - 12/13/2023 1:51 PM EDT Images from the original note were not included. REPRODUCTIVE ENDOCRINOLOGY AND INFERTILITY NEW PATIENT CLINIC NOTE REFERRED BY: Consultation requested by Dr. Patel for an opinion regarding infertility. My final recommendations will be communicated back to the requesting physician by way of shared Medical record or letter to requesting physician via US mail. Subjective: Patient ID: Danelle Guido is a 23 year old female with a chief complaint of infertility. HPI She is kindly referred by Dr. Patel. She is a very pleasant 23 year old white woman, a , who presents for consultation for infertility. Seen with her for new patient infertility consultation. They have been for 4.5 years. Actively trying to conceive x 1 year but not preventing /off control x 2.5 years. Goal family size of 3 children. Initially told she has polycystic ovary syndrome (PCOS) approximately 2 years ago when she developed unilateral pain and was found to have hemorrhagic cyst on L ovary; repeat US showed polycystic morphology of ovaries. However she does not recall having labs that showed elevated testosterone and denies clinical signs of hyperandrogenism. Reports regular predictable cycles, q32 days or so. +OPKs with surge CD17-20. Does have hx pre-diabetes, taking metformin 500 TID with normal A1c recently. Momhas hx PCOS. Sought initial evaluation for fertility with turnaround planner in [place]. Had HSG done a few months ago, told normal. No recent ultrasound done. had semen analysis that was within normal limits. Biochemical x1 in 05/2023. Has done 5 cycles of clomid/+OPK/TIC. 50 x 4 cycles -> 100. Past Medical History: PAST MEDICAL HISTORY Diagnosis Date Anemia Female infertility Insulin resistance Past Surgical History: History reviewed. No pertinent surgical history. OB History: 06/2023 Biochemical [employer] History: Menstrual cycle pattern: Regular periods (25-34 days in length) Cycle length (days): 28-31 Days of bleedin-8 OPK use: Yes, able to detect Dysmenorrhea: Rarely Dyspareunia: No STI history: None Last Pap Smear Date: 09/15/22 Last pap outcome: Normal History of abnormal PAP: No, all prior PAP smears have been normal Procedure for abnormal pap smear: Colposcopy History of abnormal mammogram: No Prior chemotherapy or radiation: No Allergies: No Known Allergies Medications: Current Outpatient Medications Medication Sig Dispense Refill metFORMIN (GLUCOPHAGE) 500 mg tablet One tablet three times daily with meals. sertraline (ZOLOFT) 25 mg tablet Take 25 mg by mouth. No current facility-administered medications for this visit. Family History: family history includes Colon Cancer in her paternal grandfather. 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 Male Partner History: Partner Information * If Partner is female, check box for associated questions.: No Partner's Name: Jerry Guido Partner's : 99 Partner's Partner's Ethnicity: Partner's Race: Legally ?: Yes Do they have children together?: No Any other Previous Pregnancies?: Yes Date of last : 06/2023 Number of cigarettes smoked daily: None Marijuana use: No Number of alcoholic beverages: 5-10per week Medications: none Pertinent Medical Hx: none Pertinent Surgical Hx: none Pertinent Genetic Hx: none Fathered children prior relationship: No Partner has had: Semen analysis Partner had fever in the last 4 months: No Partner has [facility] medical chart: Yes Partner had prior fertility testing or treatment elsewhere: No Basic Semen Analysis: Component Ref Range & Units 3 wk ago Date of Analysis 11.17.23 Semen Volume >=1.50 mL 2.90 pH, Semen >=7.2 7.6 Color, Semen Jeffers Opalescent Semen Viscosity Normal Sperm Concentration >=15.00 M/mL 177.50 Total Sperm Count M 514.75 % Motile Sperm (%AR + %SANDFILL OPERATOR SURFACE) >=40 % 82 Forward Progression 4 = Rapid unidirectional Total Motile Sperm M 422.10 % Normal Forms, WHO (5th ed.) >=4 % 4 Undiff Round Cells <1.00 M/mL 0.90 Abstinence Time Days 4.0 Collection Time 1245 Receipt Time 1336 Time to Analysis 0 - 60 Minutes 55 Semen Comment 2 Makler chamber used. Moderate sperm agglutination seen. Mild debris seen. Genetic Screening: Neither patient nor partner have seen a genetic counselor for any reason. They are not related by blood. There is no family history of Down syndrome or any other chromosomal abnormality. No family history of the following: mental retardation, learning problems, developmental delay, cleft lip or palate, spina bifida, cystic fibrosis, muscular dystrophy, hemophilia, blood disorders such as sickle cell, kidney disease or Andres disease. No history of stillbirth or three or more miscarriages. The following portions of the patient's history were reviewed and updated as appropriate: allergies, current medications, past family history, past medical history, past social history, past surgicalhistory and problem list. Review of Systems A >10 system ROS was reviewed and is otherwise negative, except as indicated in the chief complaint and/or HPI above if applicable. Objective: Physical Exam Constitutional: Well-developed and well-nourished. HEENT: Head normocephalic and atraumatic. Assessment: This is a 23 year old female, a , with unexplained infertility who presents for new patient visit. Plan: ASSESSMENT/PLAN: 1. Female infertility - ICD9: 628.9, ICD10: N97.9 (primary diagnosis) Patient was counseled today regarding the etiologies of infertility including male factor, ovarian factor, tubal/uterine factor, cervical factor and unexplained. Fertility treatments including ovulation induction, intrauterine insemination and in vitro fertilization were discussed. Reviewed previous fertility workup including HSG and semen analysis. Has not had a recent ultrasound - recommend uterine evaluation with SIS. If saline sonogram is normal, move right into IUI teach visit. Plan monitored cycle with Letrozole/trigger/IUI. If no insurance coverage for IUI can consider switching to letrozole/TIC DANIEL IUI Treatment Plan: Tubal Patency Testing: HSG date: 2023 within normal limits Sperm Source:Partner Fresh Treatment Protocol: Letrozole dose 2.5 mg CD 2-6 Monitoring Plan: Ultrasound monitoring CD 10-12 Ovidrel Trigger: Yes Supplemental Progesterone: None Comments: None - SONOHYSTEROGRAPHY (SIS) US WHI - HEMOGLOBIN A1C 2. Fertility testing - ICD9: V26.21, ICD10: Z31.41 - SONOHYSTEROGRAPHY (SIS) US WHI - WHIIVF ANTI MULLERIAN HORMONE 3. Procreative management counseling - ICD9: V26.49, ICD10: Z31.69 - COMPLETE BLOOD COUNT - HEMOGLOBIN A1C - RUBELLA IGG ANTIBODY - TYPE + SCREEN - VARICELLA ZOSTER IGG 4. Special screening examination for infectious diseases - ICD9: V75.9, ICD10: Z11.9 - GONORRHEA/CHLAMYDIA NAAT - SYPHILIS TREPONEMAL W/REFLEX - HIV 1/2 COMBO WITH REFLEX TO DIFFERENTIATION - HEPATITIS C ANTIBODY IA WITH CONFIRMATION - HEPATITIS B SURFACE ANTIGEN - HEPATITIS B CORE ANTIBODY TOTAL 5. Vitamin D deficiency - ICD9: 268.9, ICD10: E55.9 - VITAMIN D 25 HYDROXY 6. Encounter of female for testing for genetic disease carrier status for procreative management - ICD9: V26.31, ICD10: Z31.430 - CARRIER SCREEN, EXPANDED 7. Irregular menses - ICD9: 626.4, ICD10: N92.6 - THYROID STIMULATING HORMONE 8. The patient had multiple questions that were addressed today. These were answered to her satisfaction. DANIEL STAFF: STAFF PHYSICIAN NOTE OF PERSONAL INVOLVEMENT IN CARE I have personally performed a face to face assessment of the patient and have reviewed the progressnote obtained and documented by the Fellow. I personally participated in the mata components. I havediscussed the case and management of the patient's care with the Fellow. The following comments revise or confirm relevant mata components of the Fellow's note. Signature: Marina Arthur Date: 12/14/2023 Authenticated by responsible provider. I spent a total of 25 minutes face to face with the patient. Greater than 50% of the time was spentcounseling and coordinating the care based on my plan and assessment as noted. I spent a total of 45 minutes on the date of the service which included preparing to see the patient, [id number] patient care, completing clinical documentation, obtaining and/or reviewing separately obtained history, counseling and educating the patient/family/caregiver and care coordination (not separately reported). Marina Arthur MD, [place] To patients reading this note: Please be advised the primary purpose of this note is for me to communicate with myself and other members of your medical team. Standard sentence structure is not always used. Medical terminology and medical abbreviations may be used. There may be grammatical and typographical errors missed in proofreading. documented in this encounterC[facility]-04-[facility] History of Present illness Narrative* Anette Mcmillan, DO - 10/20/2023 4:00 PM EDT Images from the original note were not included. SUBJECTIVE: Danelle Guido is a 23 y.o. female presents with chief complaint of Anxiety and Depression Pt presents to the office to discuss more depression and anxiety. She was advised by OBGYN to ween off pristiq as trying to get . She has weaned over the past 5 months and is currently takinga 1/2 tablet every other day. Since then she has struggled with depression more. Pt states mood does worsen prior to having periods but improves after menstrual cycle. Pt is asking what is recommended as she is still trying to get . Pt did see hematology/ oncology re elevated platelets and WBC's. The dialysis registered nurse sent her to rheumatology as VANDANA was elevated. States rheumatology did not feel it was lupus. She is still awaiting follow up to review recent test results. Depression Visit Type: follow-up Patient presents with the following symptoms: depressed mood and irritability. Severity: moderate Review of Systems: Review of Systems Constitutional: Positive for irritability. Psychiatric/Behavioral: Positive for depression. Problem List: Patient Active Problem List Diagnosis Hyperlipidemia (CMS/HCC) Insomnia Mixed anxiety and depressive disorder Anxiety Hydronephrosis with ureteral calculus Kidney stone PMDD (premenstrual dysphoric disorder) (CMS/HCC) Prediabetes Depression (CMS/HCC) Panic disorder (CMS/HCC) Iron deficiency Leukocytosis Positive VANDANA (antinuclear antibody) Past Medical History: Past Medical History: Diagnosis Date Anxiety IBS (irritable bowel syndrome) Ovarian cyst PMDD (premenstrual dysphoric disorder) (CMS/HCC) Family History: Family History Problem Relation Name Age of Onset Hypertension Mother Елена Polycystic ovary syndrome Mother Елена Depression Mother Елена Miscarriages / Stillbirths Mother Елена Hyperlipidemia Father Jair Hypertension Father Jair Colon cancer Paternal Grandmother Diabetes Paternal Grandfather Wild Allergies: Allergies Allergen Reactions Zinc Hives Lactase-Lactobacillus Dairy Other Reaction(s): Bowel problem Surgical History: Past Surgical History: Procedure Laterality Date COLONOSCOPY Social History: Social Determinants of Health Tobacco Use: Low Risk (10/20/2023) Patient History Smoking Tobacco Use: Never Smokeless Tobacco Use: Never Passive Exposure: Never Alcohol Use: Not At Risk (10/19/2023) AUDIT-C Frequency of Alcohol Consumption: Monthly or less Average Number of Drinks: 1 or 2 Frequency of Binge Drinking: Never Financial Resource Strain: Low Risk (10/19/2023) Overall Financial Resource Strain (CARDIA) Difficulty of Paying Living Expenses: Not very hard Food Insecurity: No Food Insecurity (10/19/2023) Hunger Vital Sign Worried About Running Out of Food in the Last Year: Never true Ran Out of Food in the Last Year: Never true Transportation Needs: No Transportation Needs (10/19/2023) PRAPARE - Transportation Lack of Transportation (Medical): No Lack of Transportation (Non-Medical): No Physical Activity: Insufficiently Active (10/19/2023) Exercise Vital Sign Days of Exercise per Week: 2 days Minutes of Exercise per Session: 20 min Stress: Stress Concern Present (10/19/2023) [employer] [place] [employer] - Occupational Stress Questionnaire Feeling of Stress : Very much Social Connections: Moderately Integrated (10/19/2023) Social Connection and Isolation Panel [NHANES] Frequency of Communication with Friends and Family: Twice a week Frequency of Social Gatherings with Friends and Family: Once a week Attends Oriental [employer] Services: More than 4 times per year Active Member of Clubs or Organizations: No Attends Club or Organization Meetings: Patient declined Marital Status: Intimate Partner Violence: Not At Risk (07/29/2022) Humiliation, Afraid, Rape, and Kick questionnaire Fear of Current or Ex-Partner: No Emotionally Abused: No Physically Abused: No Sexually Abused: No Depression: Not at risk (10/20/2023) PHQ-2 PHQ-2 Score: 0 Housing Stability: Low Risk (10/19/2023) Housing Stability Vital Sign Unable to Pay for Housing in the Last Year: No Number of Times Moved in the Last Year: 0 Homeless in the Last Year: No Health Literacy: Adequate Health Literacy (10/19/2023) B1300 Health Literacy Frequency of need for help with medical instructions: Never OBJECTIVE: Visit Vitals BP 118/80 Pulse 90 Temp 97.3 F Ht 5' 4 Wt 177 lb SpO2 96% BMI 30.38 kg/m Smoking Status Never BSA 1.9 m Physical Exam Constitutional: Appearance: Normal appearance. HENT: Head: Normocephalic and atraumatic. Eyes: Extraocular Movements: Extraocular movements intact. Conjunctiva/sclera: Conjunctivae normal. Pupils: Pupils are equal, round, and reactive to light. Cardiovascular: Rate and Rhythm: Normal rate and regular rhythm. Pulmonary: Effort: Pulmonary effort is normal. Breath sounds: Normal breath sounds. Abdominal: General: Bowel sounds are normal. Palpations: Abdomen is soft. Musculoskeletal: General: Normal range of motion. Skin: General: Skin is warm and dry. Neurological: General: No focal deficit present. Mental Status: She is alert and oriented to person, place, and time. Psychiatric: Mood and Affect: Mood normal. Thought Content: Thought content normal. Judgment: Judgment normal. No results found for this or any previous visit (from the past 672 hour(s)). ASSESSMENT AND PLAN: Assessment/Plan Diagnoses and all orders for this visit: Depression, unspecified depression type (CMS/HCC) Problem is stable, will wean off pristiq due to pt trying to become . - sertraline (Zoloft) 25 MG tablet; Take 1 tablet (25 mg) by mouth Daily - hydrOXYzine HCl (Atarax) 25 MG tablet; Take 1 tablet (25 mg) by mouth every 6 (six) hours if needed for anxiety Mixed anxiety and depressive disorder - sertraline (Zoloft) 25 MG tablet; Take 1 tablet (25 mg) by mouth Daily - hydrOXYzine HCl (Atarax) 25 MG tablet; Take 1 tablet (25 mg) by mouth every 6 (six) hours if needed for anxiety Panic disorder (CMS/HCC) Patient advised to return if symptoms worsen and/or persist despite treatment. PMDD (premenstrual dysphoric disorder) (CMS/HCC) Patient advised to return if symptoms worsen and/or persist despite treatment. Updated Medications: I have reviewed and reconciled the history and medication list with the patient today. Current Outpatient Medications: clomiPHENE (Clomid) 50 MG tablet, Take 2 tablets (100 mg) PO on days 5-9 of cycle, Disp: 10 tablet,Rfl: 0 desvenlafaxine (Pristiq) 50 MG 24 hr tablet, Take 1 tablet (50 mg) by mouth Daily (Patient taking differently: Take 25 mg by mouth Daily), Disp: 30 tablet, Rfl: 5 metFORMIN (Glucophage) 500 MG tablet, One tablet three times daily with meals., Disp: 90 tablet, Rfl: 11 Vit w/Lv-Mdwiagjew-AF (PNV PO), Take by mouth, Disp: , Rfl: [id number] Discharge instructions Patient Education 02/11/2023 10:31:02 Dietary Guidelines to Help Prevent Kidney Stones Dietary Guidelines to Help Prevent Kidney Stones Kidney stones are deposits of minerals and salts that form inside your kidneys. Your risk of developing kidney stones may be greater depending on your diet, your lifestyle, the medicines you take, and whether you have certain medical conditions. Most people can lower their risks of developing kidney stones by following these dietary guidelines. Your dietitian may give you more specific instructions depending on your overall health and the type of kidney stones you tend to develop. What are tips for following this plan? Reading food labels Choose foods with no salt added or low-salt labels. Limit your salt (sodium) intake to less than 1,500 mg a day. Choose foods with calcium for each meal and snack. Try to eat about 300 mg of calcium at each meal.Foods that contain 200 500 mg of calcium a serving include: ?8 oz (237 mL) of milk, vsomfef-shzquogsrusr-rskvn milk, and calcium- fortifiedfruit juice. Calcium-fortified means that calcium has been added to these drinks. ?8 oz (237 mL) of kefir, yogurt, and soy yogurt. ?4 oz (114 g) of tofu. ?1 oz (28 g) of cheese. ?1 cup (150 g) of dried figs. ?1 cup (91 g) of cooked broccoli. ?One 3 oz (85 g) can of sardines or mackerel. Most people need 1,000 1,500 mg of calcium a day. Talk to your dietitian about how much calcium is recommended for you. Shopping Buy plenty of fresh fruits and vegetables. Most people do not need to avoid fruits and vegetables, even if these foods contain nutrients that may contribute to kidney stones. When shopping for convenience foods, choose: ?Whole pieces of fruit. ?Pre-made salads with dressing on the side. ?Low-fat fruit and yogurt smoothies. Avoid buying frozen meals or prepared deli foods. These can be high in sodium. Look for foods with live cultures, such as yogurt and kefir. Choose high-fiber grains, such as whole-wheat breads, oat bran, and wheat cereals. Cooking Do not add salt to food when cooking. Place a salt shaker on the table and allow each person to addtheir own salt to taste. Use vegetable protein, such as beans, textured vegetable protein (TVP), or tofu, instead of meat inpasta, casseroles, and soups. Meal planning Eat less salt, if told by your dietitian. To do this: ?Avoid eating processed or pre-made food. ?Avoid eating fast food. Eat less animal protein, including cheese, meat, poultry, or fish, if told by your dietitian. To dothis: ?Limit the number of times you have meat, poultry, fish, or cheese each week. Eat a diet free of meat at least 2 days a week. ?Eat only one serving each day of meat, poultry, fish, or seafood. ?When you prepare animal proteins, cut pieces into small portion sizes. For most meat and fish, oneserving is about the size of the palm of your hand. Eat at least five servings of fresh fruits and vegetables each day. To do this: ?Keep fruits and vegetables on hand for snacks. ?Eat one piece of fruit or a handful of berries with breakfast. ?Have a salad and fruit at lunch. ?Have two kinds of vegetables at dinner. You may be told to limit foods that are high in a substance called oxalate. These include: ?Spinach (cooked), rhubarb, beets, sweet potatoes, and Portuguese chard. ?Peanuts. ?Potato chips, lithuanian fries, and baked potatoes with skin on. ?Nuts and nut products. ?Chocolate. If you regularly take a diuretic medicine, make sure to eat at least 1 or 2 servings of fruits or vegetables that are high in potassium each day. These include: ?Avocado. ?Banana. ?Mcclain, prune, carrot, or tomato juice. ?Baked potato. ?Cabbage. ?Beans and split peas. Lifestyle Drink enough fluid to keep your urine pale yellow. This is the most important thing you can do. Spread your fluid intake throughout the day. If you drink alcohol: ?Limit how much you have to: ?0 1 drink a day for women who are not . ?0 2 drinks a day for men. ?Know how much alcohol is in your drink. In the [place] one drink equals one 12 oz bottle of beer (355 mL), one 5 oz glass of wine (148 mL), or one 1 oz glass of hard liquor (44 mL). Lose weight if told by your health care provider. Work with your dietitian to find an eating plan and weight loss strategies that work best for you. General information Talk to your health care provider and dietitian about taking daily supplements. Depending on your health and the cause of your kidney stones, you may be told: ?Do not take high-dose supplements of vitamin C (1,000 mg a day or more). ?To take a calcium supplement. ?To take a daily probiotic supplement. ?To take other supplements such as magnesium, fish oil, or vitamin B6. Take inhe-bng-erhtseb and prescription medicines only as told by your health care provider. These include supplements. What foods should I limit? Limit your intake of the following foods, or eat them as told by your dietitian. Vegetables Spinach. Rhubarb. Beets. Canned vegetables. Pickles. Olives. Baked potatoes with skin. Grains Wheat bran. Baked goods. Salted crackers. Cereals high in sugar. Meats and other proteins Nuts. Nut butters. Large portions of meat, poultry, or fish. Salted, precooked, or cured meats, such as sausages, meat loaves, and hot dogs. Dairy Cheeses. Beverages Regular soft drinks. Regular vegetable juice. Seasonings and condiments Seasoning blends with salt. Salad dressings. Soy sauce. Ketchup. Barbecue sauce. Other foods Canned soups. Canned pasta sauce. Casseroles. Pizza. Lasagna. Frozen meals. Potato chips. Gambian fries. The items listed above may not be a complete list of foods and beverages you should limit. Contact a dietitian for more information. What foods should I avoid? Talk to your dietitian about specific foods you should avoid based on the type of kidney stones youhave and your overall health. Fruits Grapefruit. The item listed above may not be a complete list of foods and beverages you should avoid. Contact adietitian for more information. Summary Kidney stones are deposits of minerals and salts that form inside your kidneys. You can lower your risk of kidney stones by making changes to your diet. The most important thing you can do is drink enough fluid. Drink enough fluid to keep your urine pale yellow. Talk to your dietitian about how much calcium you should have each day, and eat less salt and animal protein as told by your dietitian. This information is not intended to replace advice given to you by your health care provider. Make sure you discuss any questions you have with your health care provider. Document Revised: 05/14/2022 Document Reviewed: 05/14/2022 [employer] Patient Education 2022 [place]. 02/11/2023 10:19:31 Dietary Guidelines to Help Prevent Kidney Stones Dietary Guidelines to Help Prevent Kidney Stones Kidney stones are deposits of minerals and salts that form inside your kidneys. Your risk of developing kidney stones may be greater depending on your diet, your lifestyle, the medicines you take, and whether you have certain medical conditions. Most people can lower their risks of developing kidney stones by following these dietary guidelines. Your dietitian may give you more specific instructions depending on your overall health and the type of kidney stones you tend to develop. What are tips for following this plan? Reading food labels Choose foods with no salt added or low-salt labels. Limit your salt (sodium) intake to less than 1,500 mg a day. Choose foods with calcium for each meal and snack. Try to eat about 300 mg of calcium at each meal.Foods that contain 200 500 mg of calcium a serving include: ?8 oz (237 mL) of milk, jnsmqkq-vmsoiyzudhgz-vcgvx milk, and calcium- fortifiedfruit juice. Calcium-fortified means that calcium has been added to these drinks. ?8 oz (237 mL) of kefir, yogurt, and soy yogurt. ?4 oz (114 g) of tofu. ?1 oz (28 g) of cheese. ?1 cup (150 g) of dried figs. ?1 cup (91 g) of cooked broccoli. ?One 3 oz (85 g) can of sardines or mackerel. Most people need 1,000 1,500 mg of calcium a day. Talk to your dietitian about how much calcium is recommended for you. Shopping Buy plenty of fresh fruits and vegetables. Most people do not need to avoid fruits and vegetables, even if these foods contain nutrients that may contribute to kidney stones. When shopping for convenience foods, choose: ?Whole pieces of fruit. ?Pre-made salads with dressing on the side. ?Low-fat fruit and yogurt smoothies. Avoid buying frozen meals or prepared deli foods. These can be high in sodium. Look for foods with live cultures, such as yogurt and kefir. Choose high-fiber grains, such as whole-wheat breads, oat bran, and wheat cereals. Cooking Do not add salt to food when cooking. Place a salt shaker on the table and allow each person to addtheir own salt to taste. Use vegetable protein, such as beans, textured vegetable protein (TVP), or tofu, instead of meat inpasta, casseroles, and soups. Meal planning Eat less salt, if told by your dietitian. To do this: ?Avoid eating processed or pre-made food. ?Avoid eating fast food. Eat less animal protein, including cheese, meat, poultry, or fish, if told by your dietitian. To dothis: ?Limit the number of times you have meat, poultry, fish, or cheese each week. Eat a diet free of meat at least 2 days a week. ?Eat only one serving each day of meat, poultry, fish, or seafood. ?When you prepare animal proteins, cut pieces into small portion sizes. For most meat and fish, oneserving is about the size of the palm of your hand. Eat at least five servings of fresh fruits and vegetables each day. To do this: ?Keep fruits and vegetables on hand for snacks. ?Eat one piece of fruit or a handful of berries with breakfast. ?Have a salad and fruit at lunch. ?Have two kinds of vegetables at dinner. You may be told to limit foods that are high in a substance called oxalate. These include: ?Spinach (cooked), rhubarb, beets, sweet potatoes, and Portuguese chard. ?Peanuts. ?Potato chips, lithuanian fries, and baked potatoes with skin on. ?Nuts and nut products. ?Chocolate. If you regularly take a diuretic medicine, make sure to eat at least 1 or 2 servings of fruits or vegetables that are high in potassium each day. These include: ?Avocado. ?Banana. ?Mcclain, prune, carrot, or tomato juice. ?Baked potato. ?Cabbage. ?Beans and split peas. Lifestyle Drink enough fluid to keep your urine pale yellow. This is the most important thing you can do. Spread your fluid intake throughout the day. If you drink alcohol: ?Limit how much you have to: ?0 1 drink a day for women who are not . ?0 2 drinks a day for men. ?Know how much alcohol is in your drink. In the [place] one drink equals one 12 oz bottle of beer (355 mL), one 5 oz glass of wine (148 mL), or one 1 oz glass of hard liquor (44 mL). Lose weight if told by your health care provider. Work with your dietitian to find an eating plan and weight loss strategies that work best for you. General information Talk to your health care provider and dietitian about taking daily supplements. Depending on your health and the cause of your kidney stones, you may be told: ?Do not take high-dose supplements of vitamin C (1,000 mg a day or more). ?To take a calcium supplement. ?To take a daily probiotic supplement. ?To take other supplements such as magnesium, fish oil, or vitamin B6. Take aqxb-ney-fipthga and prescription medicines only as told by your health care provider. These include supplements. What foods should I limit? Limit your intake of the following foods, or eat them as told by your dietitian. Vegetables Spinach. Rhubarb. Beets. Canned vegetables. Pickles. Olives. Baked potatoes with skin. Grains Wheat bran. Baked goods. Salted crackers. Cereals high in sugar. Meats and other proteins Nuts. Nut butters. Large portions of meat, poultry, or fish. Salted, precooked, or cured meats, such as sausages, meat loaves, and hot dogs. Dairy Cheeses. Beverages Regular soft drinks. Regular vegetable juice. Seasonings and condiments Seasoning blends with salt. Salad dressings. Soy sauce. Ketchup. Barbecue sauce. Other foods Canned soups. Canned pasta sauce. Casseroles. Pizza. Lasagna. Frozen meals. Potato chips. Gambian fries. The items listed above may not be a complete list of foods and beverages you should limit. Contact a dietitian for more information. What foods should I avoid? Talk to your dietitian about specific foods you should avoid based on the type of kidney stones youhave and your overall health. Fruits Grapefruit. The item listed above may not be a complete list of foods and beverages you should avoid. Contact adietitian for more information. Summary Kidney stones are deposits of minerals and salts that form inside your kidneys. You can lower your risk of kidney stones by making changes to your diet. The most important thing you can do is drink enough fluid. Drink enough fluid to keep your urine pale yellow. Talk to your dietitian about how much calcium you should have each day, and eat less salt and animal protein as told by your dietitian. This information is not intended to replace advice given to you by your health care provider. Make sure you discuss any questions you have with your health care provider. Document Revised: 05/14/2022 Document Reviewed: 05/14/2022 [employer] Patient Education 2022 [place]. Follow Up Care 01/29/2023 15:46:11 With:Willy WARNER, LOCO Velasquez, URO Address: When:Within 6 Month(s) Comments:imelda/NOAH and MILAGROS [facility] 11-03-2021 Evaluation note* Encounter Date Diagnosis Assessment Notes Treatment Notes Treatment Clinical Notes Dec, Irritable bowel syndrome with diarrhea (ICD-10 - K58.0) Continue Dicyclomine prn. Pt to call if symptoms worsen or return. Follow up in 1 year. [employer] Other Evaluation + Plan note Future Appointments Appointment Date:09/10/2023 09:00:00 AM Scheduled Provider:Mirna Aguilera MD Location:[facility] Appointment Type:URO Office Visit [facility] Larry Evaluation + Plan note Future Appointments Appointment Date:09/10/2023 09:00:00 AM Scheduled Provider:Mirna Aguilera MD Location:[facility] Appointment Type:URO Office Visit Diagnostic Tests Pending * Calculi Analysis [facility] Work Phone: evaluation note* Diagnosis Onset Date Resolution Status Leukocytosis acute Leukocytosis acute [facility] Work Phone: evaluation note* Diagnosis Onset Date Resolution Status Leukocytosis acute Iron deficiency acute Leukocytosis acute Positive VANDANA (antinuclear antibody) [facility] Work Phone: evaluation note* Diagnosis Onset Date Resolution Status Iron deficiency acute Leukocytosis acute Positive VANDANA (antinuclear antibody) [facility] Work Phone: evaluation note* Diagnosis Female infertility- Primary Female infertility of unspecified origin Fertility testing Procreative management counseling Other procreative management counseling and advice Special screening examination for infectious diseases Screening examination for unspecified infectious disease Vitamin D deficiency Unspecified vitamin D deficiency Encounter of female for testing for genetic disease carrier status for procreative management Testing of female for genetic disease carrier status Irregular menses Irregular menstrual cycle [facility] Fertility testing- Primary Pre-procedural laboratory examination [facility] Diagnosis Female infertility- Primary Female infertility of unspecified origin [facility] Diagnosis Treatment plan provided- Primary [facility]* Diagnosis Positive test- Primary examination or test, positive result [facility] Diagnosis Encounter for supervision of normal first in first trimester Encounter for drug screening examination or test, unconfirmed [facility] Diagnosis Early stage of - Primary state, incidental [facility] Diagnosis Early stage of state, incidental [facility] Diagnosis Depression, unspecified depression type (CMS/HCC)- Primary Mixed anxiety and depressive disorder Dysthymic disorder Panic disorder (CMS/HCC) Panic disorder without agoraphobia PMDD (premenstrual dysphoric disorder) (CMS/HCC) Premenstrual tension syndromes [facility] Diagnosis Onset Date Resolution Status Admit Date Iron deficiency acute February 222024 2:48pm Leukocytosis acute February 23, 2024 2:48pm Positive VANDANA (antinuclear antibody) acute February 22 2:48pm acute February 22 2:48pm [facility] Work Phone: Evaluation note* Diagnosis PCOS (polycystic ovarian syndrome)- Primary Polycystic ovaries [facility] Diagnosis 12 weeks gestation of Screening for malignant neoplasm of cervix Screening for malignant neoplasm of the cervix Screen for sexually transmitted diseases Screening examination for venereal disease Genetic screening Other genetic screening documented in this encounter [facility]* Diagnosis 16 weeks gestation of [facility]* Diagnosis 24 weeks gestation of Screening for diabetes mellitus (DM) Screening for diabetes mellitus [facility]* Diagnosis 28 weeks gestation of [facility]* Diagnosis 30 weeks gestation of [facility]* Diagnosis 32 weeks gestation of [facility]* Diagnosis Depression, unspecified depression type Mixed anxiety and depressive disorder Dysthymic disorder [facility]* Diagnosis 34 weeks gestation of (HHS-HCC) [facility]* Diagnosis 36 weeks gestation of (HHS-HCC) screening for streptococcus B ([facility]-HCC) screening for Streptococcus B [facility]* Diagnosis Depression, unspecified depression type Mixed anxiety and depressive disorder Dysthymic disorder 37 weeks gestation of (HHS-HCC) [facility]* Diagnosis 37 weeks gestation of (HHS-HCC) [facility]* Diagnosis 37 weeks gestation of (HHS-HCC) 37 weeks gestation of (HHS-HCC) Decreased movements in third trimester, single or unspecified fetus (HHS-HCC) [facility]* Diagnosis 37 weeks gestation of (HHS-HCC) [facility]* Diagnosis 38 weeks gestation of (HHS-HCC) [facility]* Diagnosis anxiety (HHS-HCC)- Primary Acute vulvitis Unspecified vaginitis and vulvovaginitis documented [facility] N[facility]ative - Reported* Type Description Date Medical History anxiety [employer] Other Hospital course Narrative No data available for this section [facility] Hospital Discharge instructions Additional Instructions Strain all your urine Zofran for nausea vomiting Eden for severe pain You cannot work or drive when taking Eden Tylenol Motrin for minor pain Take antibiotic as instructed until gone Flomax daily Follow urology call tomorrow for appointment Please return here if you have any increased pain, fevers, chills or any other concern[facility] Work Phone: Hospital Discharge instructions No data available for this section [facility] Additional Instructions Continue to monitor blood pressures at home. Call office or Labor if Blood pressures are consistently elevated greater than 140/90. RX for Keflex to be sent to the pharmacy.[facility] Work Phone: Progress note No data available for this section [facility] Profakld note Author [address] [facility] Note Date/Time February 23, 2024 3: 39pm [facility] [place] [address] Cancer Center Note Signed Patient: Danelle Guido MR#: [id number] : 2000 Acct:[id number] Age/Sex: 23 / F Type: REG AMB Date of Service: 02/23/24 Copies to: Rebecca Mcmillan Jr, DO~ Assessment & Plan A/P (1) Leukocytosis: (2) Iron deficiency: (3) Positive VANDANA (antinuclear antibody): (4) : Plan Her leukocytosis was intermittent and likely related to an autoimmune process caused by her positive VANDANA. Our lab investigation revealed that she has positive VANDANA and low iron studies. She has normal cortisol level normal TSH and a free T4. Her BCR able by FISH came back negative. And peripheral blood flow cytometry was negative for acute or chronic leukemia. FISH for blood was negative for any abnormalities for MPN. And MPN panel was negative for calretinin, MPL and also JAK2 and JAK2 exon 12-13 mutation. Your HIV and hepatitis panel were all negative. Rheumatoid factor and RADHA were normal. At this point there is no evidence that her leukocytosis is related to her polycystic ovarian syndrome. At this point I do not see necessary to do ultrasound of the gallbladder or renal ultrasound or urinalysis as she has no abdominal pain or flank pain or dysuria or any fever or symptoms of UTI. Examining her teeth revealed no dental cavities. Referral to rheumatology for positive VANDANA. She states she has tingling of the hands and feet but I am not sure if this could be considered neuropathy from or related to her positive VANDANA. Will do further evaluation to further. 02/23/24: Patient is here for 6-month follow-up for her history of iron deficiency anemia and leukocytosis. She was last time referred to rheumatology for positive VANDANA and for tingling in her hands and feet which could have been related to neuropathy) positive VANDANA. She is 10 weeks and she is follow-up for any further recommendation regarding her history of iron deficiency anemia. For the iron deficiency anemia she was told to use ferrous sulfate 65 mg 2 times daily and to repeat the labs 6months later and she is here for that now. She denied any active bleeding to her knowledge clinically from any source. Labs done on 02/14/2024 revealed that she is not anemic hemoglobin is 13.3 whichis normal. The white blood cell is mildly high at 14.0. MCV is normal now 87.8and the platelet count is 422. Her WBC has been anywhere from 10,000-14,000 within the last year. Her WBC was normal at 10.5 back in September. She is 10 weeks now. Absolute neutrophil count is 9.2 and absolute monocyte count is 1.1 with the rest of the WBC differential being normal. Her iron studies today 02/14/2024 revealed iron saturation of 17.1% with iron of 76 TIBC 445 ferritin of 52.7 and transferrin 318. Ferritin increased from 30 last time June 2023 and iron saturation increased from 11% back in June 2023. Plan and recommendation: Since she is 10 weeks , we will monitor her labs more often and do it every 3 months instead of every 6 months. Labs will be CBC with differential, iron studies B12 and folate in 3 months and see her then. At this point she was informed that she may have related. Mild leukocytosis that is not concerning. I also informed her that if she ends up with bleeding fashioning from somewhere else to let us know so we can do her labs sooner. 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 Patient Instructions: cbc,cmp,iron,b12 3months follow up 3 months CHEMO PLAN No Active Chemotherapy History of Present Illness CHRISTINE Mae is 23-year-old nice female who has a history of polycystic ovarian syndrome, intermittent diarrhea, IBS, anxiety and depression, hyperlipidemia andinsomnia was referred to our hematology office to be evaluated for persistent leukocytosis since at least January 2023. January 2023 she had to her right kidney stones 1 to 2 mm which passed. At that point her white blood cell was 14.2 in the on absolute neutrophil count of 8.4 and absolute monocyte count 1.0 otherwise the absolute lymphocyte count was normal. Her RBC was normal at 4.70 with a hematocrit of 41.5. However her platelet was high 461,000. Further labs were done February and June 2023 which revealed persistent mild leukocytosis anywhere from 10.9-11.3 with persistent mild thrombocytosis of 416-436. Therefore patient was referred to hematology for further evaluation. Patient is sexually active with her and denies any history of tobacco abuse or marijuana use or alcohol intake. She also denies history of hepatitis B or C or HIV. She denies any allergies or nasal sneezing or wheezing. She was prescribed one- time Flonase but she does not use it nasally. She denies any flank pain now but she has the same old left lower back pain since she was diagnosed with ovarian cyst. She was recently started on clomiphene and metformin since beginning of 2023. She denies any cough or dry cough or abdominal pain or enlarged lymph nodes or Bsymptoms or any dysuria or gross hematuria and denies any melena however she hasintermittent diarrhea of loose stool or watery once a week. She stated that she feels like she has some hair loss recently. She denies any weight loss but she gained some weight. 08/04/23: She is here for the results of her labs which were done for evaluation of her leukocytosis with a WBC count of 14.2 and mild thrombocytosis with a platelet count of 416 to 436. Our lab investigation revealed that she has positive VANDANA and low iron studies. She has normal cortisol level normal TSH and a free T4. Her BCR able by FISH came back negative. And peripheral blood flow cytometry was negative for acute or chronic leukemia. FISH for blood was negative for any abnormalities for MPN. And MPN panel was negative for calretinin, MPL and also JAK2 and JAK2 exon 12-13 mutation. Your HIV and hepatitis panel were all negative. Rheumatoid factorand RADHA were normal. She denies any abdominal pain or nausea or vomiting or flank pain or gross hematuria or dysuria. She denies any fever or chills. She denies any B symptoms as well. 02/23/24: Patient is here for 6-month follow-up for her history of iron deficiency anemia and leukocytosis. She was last time referred to rheumatology for positive VANDANA and for tingling in her hands and feet which could have been related to neuropathy) positive VANDANA. She is 10 weeks and she is follow-up for any further recommendation regarding her history of iron deficiency anemia. For the iron deficiency anemiashe was told to use ferrous sulfate 65 mg 2 times daily and to repeat the labs 6months later and she is here for that now. She denied any active bleeding to her knowledge clinically from any source. Labs done on 02/14/2024 revealed that she is not anemic hemoglobin is 13.3 whichis normal. The white blood cell is mildly high at 14.0. MCV is normal now 87.8and the platelet count is 422. Her WBC has been anywhere from 10,000-14,000 within the last year. Her WBC was normal at 10.5 back in September. She is 10 weeks now. Absolute neutrophil count is 9.2 and absolute monocyte count is 1.1 with the rest of the WBC differential being normal. Her iron studies today 02/14/2024 revealed iron saturation of 17.1% with iron of 76 TIBC 445 ferritin of 52.7 and transferrin 318. Ferritin increased from 30 last time June 2023 and iron saturation increased from 11% back in June 2023. 14 point systems were reviewed and are otherwise negative. Intake Vitals/Pain Assessment 02/23/24 14:58 Weight 82.1 kg BP 125/82 Blood Pressure Location Rt brachial Position Sitting Temp 98.1 F Temp Source Temporal Pulse 73 Pulse Source NIBP Respiration 20 Pulse Oximetry (%) 100 Oxygen Delivery Method room air Are you having pain? No Intake Visit Reasons: Follow Up Allergies zinc Allergy (Verified 02/23/24 15:00) Hives - Last Reconciled 02/23/24 by TAMMIE Javier fluticasone furoate 50 mcg/actuation 2 inhalations inhalation DAILY metformin 500 mg PO TID PNV no.162-iron glu-folic acid 12-1 mg tabs PO sertraline (Zoloft) 25 mg PO DAILY Gastrointestinal Is the patient taking opioids for pain control?: No Bowel Protocol for Opioids Given: No Bowel Pattern: Regular Bowel Movement Aid(s): None Falls Fall Precaution Measures Taken: Patient in chair Nurse's Note: Patient is here for a 6 month follow up with labs for review. Patient does report that she is about 10 weeks . States that per her OB her MPV is high. No other concerns voiced at time of intake. [facility] Medical History Medical History (Updated 02/23/24 @ 15:[address] MD) Positive VANDANA (antinuclear antibody) Iron deficiency Leukocytosis PMDD (premenstrual dysphoric disorder) Ovarian cyst IBS (irritable bowel syndrome) Mixed anxiety and depressive disorder Insomnia Hyperlipidemia Diarrhea Problem List clean-up per request of Phys. EHR Cmte Surgical History Surgical History No pertinent past surgical history Problem List clean-up per request of Phys. EHR Cmte Family History Family History (Updated 06/26/20 @ 07:46 by Bethanie [place], RN) Grandparent Colon cancer Hypertension High cholesterol Father Hypertension High cholesterol Family/Other Hypertension High cholesterol Family/Other High cholesterol Grandparent High cholesterol Father Hypertension Social History Social History (Updated 07/14/23 @ 14:26 by Karyna Patino [facility]) Smoking status: Never smoker Within the past year, how often did you have a drink containing alcohol: monthly or less In the past 12 months, have you used illegal drugs or prescription drugs for non-medical reasons?: No Review of Systems ROS Details: All systems reviewed & no additional complaints except as documented General: Patient denied fevers, chills, rigors, weight loss or loss of appetite. Head: Patient denied any headaches or vision changes Thoracic: Patient denied any shortness of breath or cough or hemoptysis Cardiovascular patient denies any chest pain or leg edema GI: Patient denies any nausea vomiting rectal bleed diarrhea : Patient denied gross hematuria. Hematology: Patient denied any bleeding from any source. No easy bruising. Lymphatic: No enlarged LAP anywhere. Skin: Normal skin exam no rashes or suspicious lesions. Neurological patient denies any headache or dizziness or focal weakness or sensory changes. Physical Exam EXAM HEENT normocephalic atraumatic pupils are equal and round Neck supple without thyromegaly or any cervical lymphadenopathy. Chest clear to auscultation bilaterally without wheezing crackles or rhonchi Heart regular rate and rhythm S1-S2 without murmurs gallop or rub Abdomen soft nontender not distended without hepatosplenomegaly or masses clinically Extremities no edema of the lower extremities Skin without any suspicious rashes except for a small abrasion area on the rightfirst finger base that does not look infected. Lymphatic system no lymphadenopathy in the cervical area axillary areas or inguinal areas bilaterally Neurological exam patient is cooperative alert and oriented x3 no focal deficits. [facility] - [facility] LAB RESULTS Corrected WBC 14.0 X10E3/uL (3.8-11.6) H 02/14/24 11:01/17 Hgb 13.3 g/dL (11.8-15.4) 02/14/24 11:02/14/24 Hct 39.3 % (34.0-46.4) 02/14/24 11:02/14/24 MCV 87.8 fl (80-100) 02/14/24 11:02/14/24 RDW 12.6 % (11.9-15.3) 02/14/24 11:22 02/14/24 Plt Count 422 x10E3/uL (150-450) 02/14/24 11:22 02/14/24 Iron 76 ug/dL (50-212) 02/14/24 11:22 02/14/24 Iron Saturation 17.1 % (20-50) L 02/14/24 11:22 02/14/24 Ferritin 52.7 ng/mL (11.0-306.8) 02/14/24 11:22 4 Dictated By: Pippa Lane MD DD/ [id number] Signed By: <Electronically signed by Pippa Lane MD> 02/23/24 1539 [facility] Work Phone: Reason for referral (narrative)* Diagnostic Procedure Only (Routine) - Authorized Specialty Diagnoses / Procedures Referred By Contac t Referred To Contact [facility] Diagnoses Fertility testing Procedures SONOHYSTEROGRAPHY (SIS) US WHI SALINE INFUS SONOHYSTEROGRAPHY W/COLOR DOPPLER CATH & SALINE/CONTRAST SONOHYSTER/[place] [address] [place] [address] [address] Referral ID Status Reason Start Date Expiration Date Visits Requested Visits Authorized [id number] Authorized Benefit Check 12/14/2023 02/15/2024 2 2 * Diagnostic Procedure Only (Routine) - Open Specialty Diagnoses / Procedures Referred By Contac t Referred To Contact [facility] Diagnoses Female infertility Procedures SONOHYSTEROGRAPHY (SIS) US WHI SALINE INFUS SONOHYSTEROGRAPHY W/COLOR DOPPLER Barbara Matos MD [address] [place] [address] [address] Referral ID Status Reason Start Date Expiration Date V isits Requested Visits Authorized [id number] Open Auto-Generate d Referral 12/13/2023 12/12/2024 1 1 [facility] for referral (narrative)* Diagnostic Procedure Only (Routine) - New Request Specialty Diagnoses / Procedures Referred By Contac t Referred To Contact [facility] Diagnoses Early stage of Procedures OBSTETRIC ULTRASOUND WHI US PREG UTERUS AFTER 1ST TRIMEST GESTATION Sara Campbell APRN.RAMP JOCKEY [address] [place], [place] [id number] [address] [address] Referral ID Status Reason Start Date Expiration Date Visits Requested Visits Authorized [id number] New Request Auto-Generat ed Referral 01/21/2024 01/20/2025 1 1 [facility] for visit Narrative* Diagnostic Procedure Only (Routine) - Closed Specialty Diagnoses / Procedures Referred By Contac t Referred To Contact [facility] Diagnoses Early stage of Procedures OBSTETRIC ULTRASOUND WHI US PREG UTERUS AFTER 1ST TRIMEST GESTATION Sara Campbell APRN.CNP [address] [place], [place] [id number] [place] [address] [place] [id number] Referral ID Status Reason Start Date Expiration Date V isits Requested Visits Authorized [id number] Closed Auto-Generate d Referral 01/25/2024 02/15/2024 1 1 [facility] for visit Narrative* Maternity Services (Routine) - Closed Specialty Diagnoses / Procedures Referred By Contac t Referred To Contact [facility] Diagnoses Encounter for supervision of normal first , first trimester Procedures Please check global maternity benefits TORRES 09/17/24 Mandy Patel, DO [address] [place] [address] Phone: tel: fax: Mandy Patel, DO [address] [place] [address] Phone: tel: fax: Referral ID Status Reason Start Date Expiration Date V isits Requested Visits Authorized [id number] Closed Other 01/20/2024 07/18/2024 1 1 [facility] Healthcare Summary Purpose Family History No Family History Records Found Relationship Condition Age at Onset Recorded Date/T yifan grandparent Malignant neoplasm of colon Unknown Hypertension Unknown High blood cholesterol Unknown father Hypertension Unknown family member Hypertension Unknown family member High blood cholesterol Unknown grandparent High blood cholesterol Unknown Relationship Condition Age at Onset Recorded Date/T yifan grandparent Malignant neoplasm of colon Unknown High blood cholesterol Unknown Hypertension Unknown father High blood cholesterol Unknown family member High blood cholesterol Unknown grandparent High blood cholesterol Unknown father Hypertension Unknown mother Polycystic ovary syndrome Unknown Advance Directives No Advanced Directives Records Found Advance Directive Response Recorded Date/ Time Advance Directives No May 22 9:54am Advance Directive Response Recorded Date/ Time Advance Directives No May 22 10:54am Chief Complaint and Reason for Visit Chief Complaint J40 Chief Complaint rt side pain Chief Complaint leukocytosis NEW - Leukocytosis Chief Complaint NEW - Leukocytosis leukocytosis Follow Up Reason for Visit Leukocytosis Leukocytosis Chief Complaint NEW - Leukocytosis leukocytosis Follow Up e34.9 Reason for Visit Leukocytosis Iron deficiency Leukocytosis Positive VANDANA (antinuclear antibody) Chief Complaint NEW - Leukocytosis leukocytosis Follow Up e34.9 N97.0 Reason for Visit Leukocytosis Iron deficiency Leukocytosis Positive VANDANA (antinuclear antibody) Chief Complaint NEW - Leukocytosis leukocytosis Follow Up e34.9 N97.0 N97.0 Reason for Visit Leukocytosis Iron deficiency Leukocytosis Positive VANDANA (antinuclear antibody) Chief Complaint leukocytosis Follow Up e34.9 N97.0 N97.0 R76.0 n97.0 Reason for Visit Iron deficiency Leukocytosis Positive VANDANA (antinuclear antibody) Chief Complaint Admit Date Follow Up February 23, 2024 2: 48pm leukocytosis February 23, 2024 3: 07pm Reason for Visit Admit Date Iron deficiency February 23, 2024 2: 48pm Leukocytosis February 23, 2024 2: 48pm Positive VANDANA (antinuclear antibody) Enrico carrillo 2024 2:48pm February 23, 2024 2: 48pm Chief Complaint Admit Date Follow Up 3 Months May 25, 2024 2:2 4pm leukocytosis June 20, 2024 12:48p m z13.1 June 24, 2024 7:19a m Reason for Visit Admit Date Acquired iron deficiency ane mary due to increased iron requirement May 25, 2024 2:24pm Leukocytosis May 25, 2024 2:2 4pm Positive VANDANA (antinuclear antibody) Apri l 2024 2:24pm May 25, 2024 2:2 4pm Chief Complaint Admit Date Follow Up 3 Months May 25, 2024 2:2 4pm z13.1 June 24, 2024 7:19a m leukocytosis June 27, 2024 7:51a m 28 wks rt side pain July 01, 2024 10:03 pm sore throat July 22, 2024 9:17a m Chief Complaint Admit Date z13.1 June 24, 2024 7:19a m 28 wks rt side pain July 01, 2024 10:03 pm sore throat July 22, 2024 9:17a m Follow Up 10 Weeks August 03, 2024 1:49 pm leukocytosis August 03, 2024 1:50 pm Reason for Visit Admit Date Acquired iron deficiency ane mary due to increased iron requirement August 03, 2024 1:49pm Leukocytosis August 03, 2024 1:49 pm Positive VANDANA (antinuclear antibody) August 03, 2024 1:49pm August 03, 2024 1:49 pm Chief Complaint Admit Date z13.1 June 24, 2024 7:19a m 28 wks rt side pain July 01, 2024 10:03 pm sore throat July 22, 2024 9:17a m Follow Up 10 Weeks August 03, 2024 1:49 pm leukocytosis August 03, 2024 1:50 pm Z36.85 August 25, 2024 10:3 0am High Blood Pressure - 37 wks September 01, 2024 1:54pm Chief Complaint Admit Date z13.1 June 24, 2024 7:19a m 28 wks rt side pain July 01, 2024 10:03 pm sore throat July 22, 2024 9:17a m Follow Up 10 Weeks August 03, 2024 1:49 pm leukocytosis August 03, 2024 1:50 pm Z36.85 August 25, 2024 10:3 0am High Blood Pressure - 37 wks September 01, 2024 1:54pm 38 weeks iup/contractions September 08 9:06pm Reason for Visit Admit Date Acquired iron deficiency ane mary due to increased iron requirement August 03, 2024 1:49pm Leukocytosis August 03, 2024 1:49 pm Positive VANDANA (antinuclear antibody) August 03, 2024 1:49pm August 03, 2024 1:49 pm 38 weeks gestation of August 9:06pm Status post vaginal delivery September 08, 2024 9:06pm Chief Complaint Admit Date z13.1 June 24, 2024 7:19a m 28 wks rt side pain July 01, 2024 10:03 pm sore throat July 22, 2024 9:17a m Follow Up August 03, 2024 1:49 pm leukocytosis August 03, 2024 1:50 pm Z36.85 August 25, 2024 10:3 0am High Blood Pressure - 37 wks September 01, 2024 1:54pm 38 weeks iup/contractions September 08 9:06pm z39.1 September 12, 2024 1:11 pm Chief Complaint Admit Date z13.1 June 24, 2024 7:19a m 28 wks rt side pain July 01, 2024 10:03 pm sore throat July 22, 2024 9:17a m Follow Up 10 Weeks August 03, 2024 1:49 pm leukocytosis August 03, 2024 1:50 pm Z36.85 August 25, 2024 10:3 0am High Blood Pressure - 37 wks September 01, 2024 1:54pm 38 weeks iup/contractions September 08 9:06pm z39.1 September 12, 2024 1:11 pm 092.4 September 14, 2024 1:42 pm Additional Source Comments INFORMATION SOURCE (unrecogn ized section and content) DATE CREATED AUTHOR 02/24/2018 [facility] DATE CREATED AUTHOR AUTHOR'S ORGANIZ ATION 11/27/2019 [facility] DATE CREATED AUTHOR AUTHOR'S ORGANIZ ATION 03/18/[address] [facility] DATE CREATED AUTHOR AUTHOR'S ORGANIZ ATION 09/18/2023 [facility] DATE CREATED AUTHOR AUTHOR'S ORGANIZ ATION 03/04/2024 [facility] DATE CREATED AUTHOR AUTHOR'S ORGANIZ ATION 09/24/2024 [facility] EPIC DATE CREATED AUTHOR AUTHOR'S ORGANIZ ATION 09/30/2024 [facility] REASON FOR VISIT (unrecogniz ed section and content) Reason Comments SIS Specialty Diagnoses / Procedures Referred By Contjaya t Referred To Contact [facility] Diagnoses Fertility testing Procedures SONOHYSTEROGRAPHY (SIS) US WHI SALINE INFUS SONOHYSTEROGRAPHY W/COLOR DOPPLER CATH & SALINE/CONTRAST SONOHYSTER/[place] [address] [place] [address] [facility] [address] [place] [address] Referral ID Status Reason Start Date Expiration Date Visits Requested Visits Authorized [id number] Authorized Benefit Check 12/14/2023 02/15/2024 2 2 Reason Comments IUI Teach Reason Comments Initial Visit Reason Comments Reason Comments Anxiety Depression Reason Comments PCOS Reason Onset Date Comments Med Refill 08/02/2024 Reason Onset Date Comments Med Refill 08/28/2024 Reason Comments Non-stress Test Reason Comments Care Pt presents to discu ss Anxiety/depression. Pt states when she is away from baby will be anxious. Pt will become tearful randomly. No thoughts of hurting herself or others. Pt currently on Zoloft for anxiety/depression. Pt states getting some sleep. Care Teams (unrecognized sec tion and content) Team Status: Active Member Role Status Dates Moe Mcmillan DO Primary Care Provider Active Team Status: Inactive Member Role Status Dates Moe Mcmillan DO Primary Care Provider Active Start: February 23, 2024 End: February 23, [address] MD Attending Provider Active Start: February 23, 2024 End: February 23, 2024 Team Status: Active Member Role Status Dates Moe Mcmillan DO Primary Care Provi rosa, Referring Provider Active Start: February 23, [address] MD Attending Provider Active Start: February 23, 2024 Team Status: Active Member Role Status Dates Moe Mcmillan DO Primary Care Provi rosa, Referring Provider Active Start: August 04, [address] MD Attending Provider Active Start: August 04, 2023 Team Status: Inactive Member Role Status Michelle Rosa Alok BaughDO kenzie Primary Care Provider Active Start: August 04, 2023 End: August 04, [address] MD Attending Provider Active Start: August 04, 2023 End: August 04, 2023 Team Status: Inactive Member Role Status Dates Moe Mcmillan DO Primary Care Provider Active Start: August 07, 2023 End: August 07, 2023 Mandy Patel DO Attending Provider Active S tart: August 07, 2023 End: August 07, 2023 Team Status: Inactive Member Role Status Michelle Mcmillan DO Primary Care Provider Active Start: September 04, 2023 End: September 04, 2023 Mandy Patel DO Attending Provider Active S tart: September 04, 2023 End: September 04, 2023 Team Status: Inactive Member Role Status Dates Moe Mcmillan DO Primary Care Provider Active Start: September 16, 2023 End: September 16, 2023 Mandy Patel DO Attending Provider Active S tart: September 16, 2023 End: September 16, 2023 Team Status: Inactive Member Role Status Michelle Mcmillan DO Primary Care Provider Active Start: September 27, 2023 End: September 27, 2023 Alok Sandhu MD Attending Provider Active St art: September 27, 2023 End: September 27, 2023 Team Status: Inactive Member Role Status Dates Moe Mcmillan DO Primary Care Provider Active Start: November 01, 2023 End: November 01, 2023 Mandy Patel DO Attending Provider Active S tart: November 01, 2023 End: November 01, 2023 Team Status: Inactive Member Role Status Michelle Mcmillan DO Primary Care Provi rosa, Referring Provider Active Start: July 14, 2023 End: July 14, [address] MD Attending Provider Active Start: July 14, 2023 End: July 14, 2023 Team Status: Active Member Role Status Dates Moe Mcmillan DO Primary Care Provi rosa, Referring Provider Active Start: July 14, [address] MD Attending Provider Active Start: July 14, 2023 Team Status: Inactive Member Role Status Dates Moe Mcmillan DO Primary Care Provider, Attending Provider Active Team Status: Inactive Member Role Status Dates Moe Mcmillan DO Primary Care Provider Active Pooja Cat APRN Emergency Provider Active [employer] Supervisor Relationship Specialty Start Date End Date Anette Mcmillan DO [address] [place] [address] PCP - General Family Medicine 07/16/22 Anette Mcmillan DO [address] [place] [address] PCP - [employer] 05/16/21 [employer] Supervisor Relationship Specialty Start Date End Date Anette Mcmillan DO [address] [place] [address] PCP - General Family Medicine 07/16/22 [employer] Supervisor Relationship Specialty Start Date End Date Anette Mcmillan DO [address] [place] [address] PCP - General Family Medicine 07/16/22 [employer] Supervisor Relationship Specialty Start Date End Date Anette Mcmillan DO [address] [place] [address] PCP - General Family Medicine 07/16/22 Anette Mcmillan DO [address] [place] [address] PCP - [employer] 05/16/21 [employer] Supervisor Relationship Specialty Start Date End Date Anette Mcmillan DO [address] [place] [address] PCP - General Family Medicine 07/16/22 Anette Mcmillan DO [address] [place] [address] PCP - [employer] 05/16/21 [employer] Supervisor Relationship Specialty Start Date End Date Anette Mcmillan DO [address] [place] [address] PCP - General Family Medicine 07/16/22 Anette Mcmillan DO [address] [place] [address] PCP - [employer] 05/16/21 [employer] Supervisor Relationship Specialty Start Date End Date Anette Mcmillan DO [address] [place] [address] PCP - General Family Medicine 07/16/22 Anette Mcmillan DO [address] [place] [address] PCP - [employer] 05/16/21 [employer] Supervisor Relationship Specialty Start Date End Date Anette Mcmillan DO [address] [place] [address] PCP - General Family Medicine 07/16/22 Anette Mcmillan DO [address] [place] [address] PCP - [employer] 05/16/21 Team Status: Inactive Member Role Status Dates Moe Mcmillan DO Primary Care Provider Active Start: May 25, 2024 End: May 25, [address] MD Attending Provider Active Start: May 25, 2024 End: May 25, 2024 Team Status: Active Member Role Status Dates Moe Mcmillan DO Primary Care Provi rosa, Referring Provider Active Start: June 20, [address] MD Attending Provider Active Start: June 20, 2024 Team Status: Inactive Member Role Status Dates Moe Mcmillan DO Primary Care Provider Active Start: June 24, 2024 End: June 24, 2024 Mandy Patel DO Attending Provider Active S tart: June 24, 2024 End: June 24, 2024 [employer] Supervisor Relationship Specialty Start Date End Date Anette Mcmillan DO [address] [place] [address] PCP - General Family Medicine 07/16/22 Anette Mcmillan DO [address] [place] [address] PCP - [facility] 05/16/21 Team Status: Active Member Role Status Dates Moe Mcmillan DO Primary Care Provi rosa, Referring Provider Active Start: June 27, [address] MD Attending Provider Active Start: June 27, 2024 Team Status: Inactive Member Role Status Dates Moe Mcmillan DO Primary Care Provider Active Start: July 01, 2024 End: July 02, 2024 Corina Hernandez MD Attending Provider Active St art: July 01, 2024 End: July 02, 2024 Team Status: Inactive Member Role Status Dates Moe Mcmillan DO Primary Care Provider Active Start: July 22, 2024 End: July 22, 2024 Aric Norris APRN Emergency Provider Active Start: July 22, 2024 End: July 22, 2024 [employer] Supervisor Relationship Specialty Start Date End Date Anette Mcmillan DO [address] [place] [address] PCP - General Family Medicine 07/16/22 Anette Mcmillan DO [address] [place] [address] PCP - [facility] 05/16/21 [employer] Supervisor Relationship Specialty Start Date End Date Anette Mcmillan DO [address] [place] [address] PCP - General Family Medicine 07/16/22 Anette Mcmillan DO [address] [place] [address] PCP - [facility] 05/16/21 Team Status: Inactive Member Role Status Dates Moe Mcmillan DO Primary Care Provider Active Start: August 03, 2024 End: August 03, [address] MD Attending Provider Active Start: August 03, 2024 End: August 03, 2024 Team Status: Active Member Role Status Dates Moe Mcmillan DO Primary Care Provider Active Start: August 03, 2024 Moe Mcmillan DO Referring Provider Active Start: August 03, [address] MD Attending Provider Active Start: August 03, 2024 Team Status: Inactive Member Role Status Dates Mandy Patel DO Attending Provider Active S tart: August 25, 2024 End: August 25, 2024 [employer] Supervisor Relationship Specialty Start Date End Date Anetet Mcmillan DO [address] [place] [address] PCP - General Family Medicine 07/16/22 Anette Mcmillan DO [address] [place] [address] PCP - [facility] 05/16/21 [employer] Supervisor Relationship Specialty Start Date End Date Anette Mcmillan DO [address] [place] [address] PCP - General Family Medicine 07/16/22 Anette Mcmillan DO [address] [place] [address] PCP - [facility] 05/16/21 Team Status: Inactive Member Role Status Dates Mandy Patel DO Attending Provider Active S tart: August 25, 2024 End: August 25, 2024 PHYSICIAN NO FAMILY Primary Care Provider Active Start: August 25, 2024 End: August 25, 2024 Team Status: Inactive Member Role Status Dates Moe Mcmillan DO Primary Care Provider Active Start: September 01, 2024 End: September 01, 2024 Corina Hernandez MD Attending Provider Active St art: September 01, 2024 End: September 01, 2024 [employer] Supervisor Relationship Specialty Start Date End Date Anette Mcmillan DO [address] [place] [address] PCP - General Family Medicine 07/16/22 Anette Mcmillan DO [address] [place] [address] PCP - [facility] 05/16/21 Team Status: Inactive Member Role Status Dates Moe Mcmillan DO Primary Care Provider Active Start: September 08, 2024 End: September 11, 2024 Corina Hernandez MD Admit Provider Active Start: September 08, 2024 End: September 11, 2024 Corina Hernandez MD Attending Provider Active St art: September 08, 2024 End: September 11, 2024 Team Status: Inactive Member Role Status Dates Moe Mcmillan DO Primary Care Provider Active Start: September 12, 2024 End: September 12, 2024 Rj Aden MD Attending Provider Active Start: September 12, 2024 End: September 12, 2024 Team Status: Inactive Member Role Status Dates Moe Mcmillan DO Primary Care Provider Active Start: September 14, 2024 End: September 14, 2024 Rj Aden MD Attending Provider Active Start: September 14, 2024 End: September 14, 2024 [employer] Supervisor Relationship Specialty Start Date End Date Anette Mcmillan [address] [place] [address] PCP - General Family Medicine 07/16/22 Deyanira Anette Brown DO [address] [place] [address] PCP - [facility] 05/16/21 Goals (unrecognized section and content) Goals may be documented in a n alternate section Source Comments (unrecognize d section and content) In the event this informatio n is protected by the Federal Confidentiality of Alcohol and Drug Abuse Patient Records regulations: The Federal rules restrict any use of the information to criminally investigate or prosecute any alcohol or drug abuse patient.[facility] HospitalIn the event this information is protected by the Federal Confidentiality of Alcohol and Drug Abuse Patient Records regulations: The Federal rules restrict any use of the information to criminally investigate or prosecute any alcohol or drug abuse patient.[facility] HospitalIn the event this information is protected by the Federal Confidentiality of Alcohol and Drug Abuse Patient Records regulations: The Federal rules restrict any use of the information to criminally investigate or prosecute any alcohol or drug abuse patient.[facility] HospitalIn the event this information is protected by the Federal Confidentiality of Alcohol and Drug Abuse Patient Records regulations: The Federal rules restrict any use of the information to criminally investigate or prosecute any alcohol or drug abuse patient.[facility] HospitalIn the event this information is protected by the Federal Confidentiality of Alcohol and Drug Abuse Patient Records regulations: The Federal rules restrict any use of the information to criminally investigate or prosecute any alcohol or drug abuse patient.[facility] HospitalIn the event this information is protected by the Federal Confidentiality of Alcohol and Drug Abuse Patient Records regulations: The Federal rules restrict any use of the information to criminally investigate or prosecute any alcohol or drug abuse patient.[facility] HospitalIn the event this information is protected by the Federal Confidentiality of Alcohol and Drug Abuse Patient Records regulations: The Federal rules restrict any use of the information to criminally investigate or prosecute any alcohol or drug abuse patient.[facility] HospitalIn the event this information is protected by the Federal Confidentiality of Alcohol and Drug Abuse Patient Records regulations: The Federal rules restrict any use of the information to criminally investigate or prosecute any alcohol or drug abuse patient.[facility] FOR RECORDS PERTAINING TO PATIENTS WHO ARE OR HAVE BEEN ENROLLED IN A CHEMICAL DEPENDENCY/SUBSTANCEABUSE PROGRAM, SOME INFORMATION MAY BE OMITTED. This clinical summary was aggregated from multiple sources. Caution should be exercised in using it in the provision of clinical care. This summary normalizes information from multiple sources, and as a consequence, information in this document may materially change the coding, format and clinical context of patient data. In addition, data may be omitted in some cases. CLINICAL DECISIONS SHOULD BE BASED ON THE PRIMARY CLINICAL RECORDS. [facility] [employer] [facility]. provides no warranty or guarantee of the accuracy or completeness of information in this document.
[2024-10-02 19:58] LABS: Hematocrit 40.0 % (36.0-48.0); Hemoglobin 13.6 g/dL (12.0-16.0); Immature Granulocytes Abs Auto 0.02 10^3/uL (0.00-0.03); Immature Granulocytes Pct Auto 0.2 % (0.0-0.5); Lymphocytes Absolute Auto 1.9 10^3/uL (1.2-3.8); Mean Corpuscular HGB Conc 34.0 g/dL (29.9-35.2); Mean Corpuscular Hemoglobin 30.4 pg (26.7-34.0); Mean Corpuscular Volume 89.5 fL (81.0-99.0); Platelet Count 464 10^3/uL (150-450); Red Blood Count 4.47 10^6/uL (4.20-5.40); White Blood Count 12.3 10^3/uL (4.0-11.0)
[2024-10-02] MEDS: KETOROLAC TROMETHAMINE 30 MG/ML VIAL IVP (19:59)
[2024-10-02] MEDS: 0.9 % SODIUM CHLORIDE 1,000 ML 1000 ML IV (20:00)
[2024-10-02 20:01] LABS: Glucose Urine UA NEGATIVE (NEGATIVE); HCG Qualitative Urine* NEGATIVE (NEGATIVE)
[2024-10-02 20:11] LABS: Anion Gap 11.4; Blood Urea Nitrogen 17.0 mg/dL (7.0-18.0); Calcium 9.2 mg/dL (8.5-10.1); Carbon Dioxide 28.6 mmol/L (21.0-32.0); Chloride 106 mmol/L (98-107); Estimated GFR (African America 47 (>=60 mL/min/1.73m^2); Estimated GFR (Non-African Ame 39 (>=60 mL/min/1.73m^2); Glucose 92 mg/dL (74-106); Potassium 4.0 mmol/L (3.5-5.1); Sodium 142 mmol/L (136-145)
[2024-10-02 20:18] LABS: Cast Seen? NONE SEEN #/LPF (NONE SEEN); Crystals Seen? Seen #/HPF (None Seen); Urine Culture Indicated YES-FRMC
[2024-10-02] MEDS: ONDANSETRON 4 MG RAPDIS TABLET SL (22:04)
[2024-10-02] MEDS: OXYCODONE HCL/ACETAMINOPHEN 5MG/325MG PO (22:05)
[2024-10-02 22:08] VITALS: BP 133/79; PULSE 81; O2SAT 98
== END 2024-10-02 22:11 | disposition home or self-care (01) ==
PROVIDERS: Physician Assistant; Emergency Provider Emergency Medicine; PCP Urology
DX: O99.893 Other specified diseases and conditions complicating puerperium (principal); N13.2 Hydronephrosis with renal and ureteral calculous obstruction; Z87.442 Personal history of urinary calculi
CPT/HCPCS: 36415; 74176; 80048; 81001; 84703; 85025; 87086; 96365; 96375; 99285; J0696; J1885; Q0162

== ENCOUNTER 2024-12-26 12:48 | Outpatient (OUT) | payer OTHER, BC, SELFPAY ==
--- OUTSIDE RECORDS SUMMARY | 2024-12-26 12:54 | XMS_ITS | Clinical Summary ---
Author Organization [facility] Address [address] [place] [address] Care Team Providers Care Marketing Performance Analyst Name Role Phone Franky Mcmillan DO Primary Care Provider [phone] Franky Mcmillan DO Unavailable [phone] Allergies Active AllergyReactionsCriticalityNoted VqmvHlqkqcgiMbtbeBxt98/25/2024 Dairy Other Reaction(s): Bowel problem AuvtSzjvn17/25/2024 Medications MedicationSigDispense QuantityRefillsLast FilledStart DateEnd DateStatus cyanocobalamin (Vitamin B-12) 100 MCG tablet Take 100 mcg by mouth DailyActive sertraline (Zoloft) 50 MG tablet Indications: anxiety ([facility])Take 1 tablet (50 mg) by mouth Daily 90 tablet ctive metFORMIN (Glucophage) 500 MG tablet Take by mouthActive Active Problems ProblemNoted DateDiagnosed DateIron tyzvgyujpy86/04/4898Tgolaugkeecn64/04/2024 Positive VANDANA (antinuclear antibody)10/20/2023Hydronephrosis with ureteral uqjtgbkh49/25/2024Kidney stone03/11/20234892Nnfpmaugvej44/25/2024epression 03/11/20238093Cwgeggdvywonuf37/26/5592Duynsqyt43/02/2021Mixed anxiety and depressive htirqsmc91/02/7469Okpckco40/06/2021MDD (premenstrual dysphoric disorder) 01/16/2020Panic pwraiwvy65/01/2020 Encounters DateTypeDepartmentCare RvrtVljcnqlqswd89/04/2025 10:15 AM EDTPostpartum Visit [facility] [address] [place] [address] Mandy Patel DO care and examination ([facility])10/19/20241836Xbutss02/20/2025Patient Outreach [facility] [address] [place] [place] [address] Wednesday, Bee, ELEVATOR REPAIRER 10/04/2024bstract [facility] [address] [place] [address] Wednesday, Bee, ELEVATOR REPAIRER 09/29/2024bstract [facility] [address] [place] [address] Franky Mcmillan DO 09/29/2024bstract [facility] [address] [place] [address] Franky cMmillan DO from Last 3 Months Immunizations ImmunizationAdministration DatesNext LlcMNjL3508/21/2004,06/17/2000,06/17/2000, 1999,1999,1999,1999,1999,1999DTaP, 5 pertussis eqykywiz07/07/2005,06/17/2000,1999,1999,1999DTaP, Ctntznzyiaj40/03/2001,1999,1999,1999Hep A, Unspecified 03/21/2012,09/18/2011Hep A, ped/adol, 2 dose03/21/2012,09/18/2011Hib (PRP-OMP) 2000,1999,1999,1999Hib / Hep B005/20/2000,1999, 1999IPV08/21/2004,2000,1999,1999Influenza, Unspecified 01/14/2018,02/04/2009,01/07/2009MMR08/21/2004,2000Meningococcal ACWY, ariimoaivja91/21/2016,09/18/2011Meningococcal HUZ2P5809/05/2015,09/18/2011Moderna SARS-CoV-2 Wuniwpwwdmx42/26/2021,03/11/2020,02/13/2020,02/12/2020Novel Acyoiovmy-L3E7-78, nasal02/04/2009,01/07/2009Polio, Dtnyvwnmwdp30/07/2005, 2000,1999,1999Tdap09/18/20116092Cqyyduqvl06/03/2001 Family History Medical HistoryRelationNameCommentsHyperlipidemiaFatherDougHypertensionFather DougDepressionMotherLisaHypertensionMotherLisaMiscarriages / StillbirthsMother LisaPolycystic ovary syndromeMotherLisaDiabetesPaternal GrandfatherArthurColon cancerPaternal IxbutochebpTqatdhvoNqbpLblypaNqtxxnirLbtniau9AmowcxCrbxLpklb MotherLisaAlivePaternal GrandfatherArthurPaternal GrandmotherSister1, healthy Social History Tobacco UseTypesPacks/DayYears UsedDateSmoking Tobacco: NeverPassive Smoke Exposure: NeverSmokeless Tobacco: Never Tobacco Cessation:Counseling Given: Not Answered Alcohol UseStandard Drinks/WeekCommentsNot Currently0 (1 standard drink = 0.6 oz pure alcohol)Caffeine intake: 1 cup coffee/[id number] Health LiteracyAnswerDate RecordedHow often do you need to have someone help you when you read instructions, pamphlets, or other written material from your doctor or pharmacy? Never10/19/2023Humiliation, Afraid, Rape, and Kick questionnaireAnswerDate RecordedWithin the last year, have you been afraid of your partner or ex-partner?No07/29/2022Within the last year, have you been humiliated or emotionally abused in other ways by your partner or ex-partner?No07/29/2022 Within the last year, have you been kicked, hit, slapped, or otherwise physically hurt by your partner or ex-partner?No07/29/2022Within the last year, have you been raped or forced to have any kind of sexual activity by your part ner or ex-partner?No07/29/2022Social Connection and Isolation PanelAnswerDate RecordedIn a typical week, how many times do you talk on the phone with family, friends, or neighbors?Twice a week10/19/2023How often do you get together with friends or relatives?Once a week10/19/2023How often do you attend hinduism or amish services?More than 4 times per year10/19/2023o you belong to any clubs or organizations such as hinduism groups, unions, [employer] or athletic elza ups, or school groups?No10/19/2023How often do you attend meetings of the clubs or organizations you belong to?Patient yvwessvo33/03/2024re you , , , , never , or living with a partner? 10/19/2023UDIT-CAnswerDate RecordedQ1: How often do you have a drink containing alcohol?Monthly or less10/19/2023Q2: How many drinks containing alcohol do you have on a typical day when you are drinking?1 or Q3: How often do you have six or more drinks on one occasion?Never10/19/2023Overall Financial Resource Strain (CARDIA)AnswerDate RecordedHow hard is it for you to pay for the very basics like food, housing, medical care, and heating?Not very hard 10/19/2023HQ-2AnswerDate RecordedPatient Health Questionnaire-2 Score0 05/08/2024[facility] [place] [facility] - Occupational Stress QuestionnaireAnswerDate RecordedDo you feel stress - tense, restless, nervous, or anxious, or unable to sleep at night because yourmind is troubled all the time - these days?Very much10/19/2023Exercise Vital SignAnswerDate RecordedOn average, how many days per week do you engage in moderate to strenuous exercise (like a brisk walk)?2 days10/19/2023On average, how many minutes do you engage in exercise at this level?20 min10/19/2023Hunger Vital SignAnswerDate Recorded Within the past 12 months, you worried that your food would run out before you got the money to buymore.Never true10/19/2023Within the past 12 months, the food you bought just didn't last and you didn't have money to get more.Never true 10/19/2023RAPARE - TransportationAnswerDate RecordedIn the past 12 months, has lack of transportation kept you from medical appointments or from getting medications?No10/19/2023In the past 12 months, has lack of transportation kept you from meetings, work, or from getting things needed for daily living?No 10/19/2023Housing Stability Vital SignAnswerDate RecordedIn the last 12 months, was there a time when you were not able to pay the mortgage or rent on time?No 07/29/2022In the last 12 months, how many places have you lived?In the last 12 months, was there a time when you did not have a steady place to sleep or slept in [facility] (including now)?No07/29/2022Housing Stability Vital SignAnswerDate RecordedIn the last 12 months, was there a time when you were not able to pay the mortgage or rent on time?No10/19/2023In the past 12 months, how many times have you moved where you were living?t any time in the past 12 months, were you homeless or living in a halfway (including now)?No 10/19/2023CommentsNoSex and Gender InformationValueDate RecordedSex Assigned at BirthNot on fileLegal ZwcLdmreq54/15/2023 11:08 PM EDTGender IdentityNot on fileSexual OrientationNot on file Last Filed Vital Signs Vital SignReadingTime TakenCommentsBlood Njeqtizw555/7809 10:14 AM EDT Zwrjs95286/24/2025 11:30 AM MIHAfxtwauvfsl03.2 ??C (97.2 ??F)05/08/2024 11:30 AM EDTRespiratory Rate--Oxygen Scmeeqxetw06%05/08/2024 11:30 AM EDTInhaled Oxygen Concentration--Brldho14.5 kg (184 lb)10/19/2024 10:14 AM NPELwindh470.6 cm (5' 4 )05/08/2024 11:30 AM EDTBody Mass Index31.58005/08/2024 11:30 AM EDT Plan of Treatment DateTypeDepartmentCare Team (Latest Contact Info)Xfhdidwwnwr85/10/2026 1:45 PM EDTOffice Visit [facility] [place] [facility] [address] [place] [address] Mandy Patel DO [address] [place] [address] Health MaintenanceDue DateLast DoneCommentsCOVID-19 Vaccine ( season) 5003/12/2020, 03/11/2020, 02/13/2020, Additional history existsInfluenza Vaccine (#1)5103/16/2017, 02/04/2009, 01/07/2009Pneumococcal Vaccine: Pediatrics (0 to 5 Years) and At-Risk Patients (6 to 64 Years)Aged OutNo longer eligible based on patient's age to complete this topic Insurance Care Teams Team MemberRelationshipSpecialtyStart DateEnd Date Franky Mcmillan DO [address] [place] [address] PCP - [facility]07/16/22 Franky Mcmillan DO [address] [place] [address] PCP - [facility]05/16/21
--- OUTSIDE RECORDS SUMMARY | 2024-12-26 12:54 | XMS_ITS | Clinical Summary ---
Author Organization [facility] Address [address] [place] [address] Phone Care Team Providers Care Senior Tableau Developer Name Role Phone Marvin Bartlett MD Primary Care Provider [phone] Encounters DateTypeDepartmentCare RafzScvedzhjqob63/02/2025bstract [facility] [address] [place] [id number] Marvin Bartlett MD from Last 3 Months Social History Tobacco UseTypesPacks/DayYears UsedDateSmoking Tobacco: Never Assessed CommentsUnknownSex and Gender InformationValueDate RecordedSex Assigned at Not on fileLegal DtuCgdaur75/28/2025 10:19 AM EDTGender IdentityNot on file Sexual OrientationNot on file Plan of Treatment Not on file Care Teams Team MemberRelationshipSpecialtyStart DateEnd Date Marvin Bartlett MD [address] [place] [address] PCP - GeneralPediatrics09/11/24
--- OUTSIDE RECORDS SUMMARY | 2024-12-26 12:54 | XMS_ITS | Encounter Summary ---
Author Organization [facility] Address [address] [facility] [place] [address] Care Team Providers Care Lens Block Gauger Name Role Phone Franky Mcmillan DO Primary Care Provider [phone] Franky Mcmillan DO Unavailable [phone] Encounter Details DateTypeDepartmentCare Team (Latest Contact Info)Sddmjuvyesf95/26/2023Clinisync Result Encounter [facility] External Department Unsolicited Franky Mcmillan DO [address] [facility] [address] [place] [address] Social History Tobacco UseTypesPacks/DayYears UsedDateSmoking Tobacco: NeverPassive Smoke Exposure: NeverSmokeless Tobacco: NeverAlcohol UseStandard Drinks/WeekComments Not Currently0 (1 standard drink = 0.6 oz pure alcohol)Caffeine intake: none B1300 Health LiteracyAnswerDate RecordedHow often do you need to have someone help you when you read instructions, pamphlets, or other written material from your doctor or pharmacy?Never10/19/2023Humiliation, Afraid, Rape, and Kick questionnaireAnswerDate RecordedWithin the last year, have you been afraid of your partner or ex-partner?No07/29/2022Within the last year, have you been humiliated or emotionally abused in other ways by your partner or ex-partner?No 07/29/2022Within the last year, have you been kicked, [...] relatives?Once a week10/19/2023How often do you attend faith or taoist services?More than 4 times per year10/19/2023o you belong to any clubs or organizations such as faith groups, unions, [employer] or athletic elza ups, or school groups?No10/19/2023How often do you attend meetings of the clubs or organizations you belong to?Patient /03/2024re you , , , , never , [...] very hard 10/19/2023HQ-2AnswerDate RecordedPatient Health Questionnaire-2 Score0 05/08/2024[facility] Occupational Health - Occupational Stress QuestionnaireAnswerDate [...] steady place to sleep or slept in [place] (including now)?No07/29/2022Housing Stability Vital SignAnswerDate RecordedIn the last 12 months, was there a time when you were not able to pay the mortgage or rent on time?No10/19/2023In the past 12 months, how many times have you moved where you were living?t any time in the past 12 months, were you homeless or living in a usp (including now)?No 10/19/2023CommentsUnknownSex and Gender InformationValueDate RecordedSex Assigned at BirthNot on fileLegal MegPexuof54/15/2023 11:08 PM EDTGender IdentityNot on fileSexual OrientationNot on filedocumented as of this encounter Functional Status * AUDIT-C ScoreAnswerDate of GtxsxggazySwminl366/03/2024 7:29 PM Madi Generic * Q1: How often do you have a drink containing alcohol?AnswerDate of Assessment AuthorMonthly or less10/19/2023 7:29 PM Madi Generic * Q2: How many drinks containing alcohol do you have on a typical day when you are drinking?AnswerDate of AssessmentAuthor1 or 7:29 PM EDT Tony Rojo * Q3: How often do you have six or more drinks on one occasion?AnswerDate of FeohrawpyiWzlzvxRqgfa36/03/2024 7:29 PM Tony Barraza * Over the past 2 weeks, how often have you been bothered by any of the following problems?QuestionAnswerDate of AssessmentAuthorLittle interest or pleasure in doing thingsNot at all05/08/2024 11:34 AM Get Adrian LPNFeeling down, depressed, or hopelessNot at all05/08/2024 11:34 AM Get Moody LPNPatient Health Questionnaire-2 Cfree178 11:34 AM Get Adrian LPN documented as of this encounter Plan of Treatment DateTypeDepartmentCare Team (Latest Contact Info)Robreupclyt37/10/2026 1:45 PM EDTOffice Visit [facility] FELICIANO [address] [place] [address] Mandy Patel DO [address] [place] [address] documented as of this encounter Procedures Procedure NamePriorityDate/TimeAssociated DiagnosisCommentsUS RENAL BI02/09/2023 12:15 PM EST documented in this encounter Results * US RENAL BI (02/09/2023 12:15 PM EST)Anatomical RegionLateralityModalityOther Specimen (Source)Anatomical Location / LateralityCollection Method / Volume Collection TimeReceived Time02/09/2023 12:15 PM EST Narrative 02/09/2023 12:18 PM EST [facility] ?[address] ? [place] [address] ? Ultrasound Report ? Signed ? Patient: MISTRY,LEXIA ?MR#: [id number] ?? : 2000 ?Acct:[id number] ?? Age/Sex: 22 / F ?ADM Date: 02/09/23 ?? Loc: US ? Attending Dr: Rebecca MCMILLAN ? Ordering Physician: Rebecca MCMILLAN ?? Date of Service: 02/09/23 ?? Procedure(s): US renal BI ?? Accession Number(s): [id number] ? cc: Rebecca MCMILLAN ; Mirna Aguilera M.D. ? [facility] ? [address] ? [place] [address] ? Patient Name: ?? LEXIA ??MISTRY ? MRN: [facility]:[id number] ? date: 2000 ?Sex: F ?? Assigned Patient Location: US ?? Current Patient Location: US ?? Accession/Order Number: [id number] ?? Exam Date: 02/09/2023 ??07:02 ?Report Date: 02/09/2023 ??12:15 ? At the request of: ?? Rebecca HARRIS ??IRLANDA ? Procedure: ??US renal BI ? EXAM: US renal BI ? HISTORY: N20.0. History of renal calculi. ? COMPARISON: None. ? TECHNIQUE: Ultrasound study of the kidneys was performed. ? FINDINGS: Right kidney measures 10.7 x 3.9 x 4.3 cm, left kidney measures 11.2 ? x 4.3 x 4.4 cm in longitudinal, transverse, and AP dimensions. Renal cortical ?? thickness appears grossly unremarkable bilaterally, measuring 1.2 cm in ?? thickness on the right and 1.4 cm in thickness on the left. No obvious solid ?? or ?? cystic renal mass. No evidence of hydronephrosis to suggest obstructive ?? uropathy. ? Within the inferior aspect of the right kidney there is a 0.5 x 0.3 x 0.3 cm ?? area of increased echogenicity likely representing a nonobstructive calculus. ? Bladder appears grossly unremarkable without a calculus, mass, or significant ?? wall thickening. ? US/US renal BI ?? IMPRESSION: ? Findings compatible with nonobstructive right renal calculus as noted. ? Electronically authenticated by: DAYANNA ??HAZNECI ?? Date: 02/09/2023 ??12:15 ? Dictated By: ?Dayanna Alonzo M.D. ? Signed By: ?02/09/23 1218 ? DD/ 1215 ? TD/TT: ? Grade And Center Marker: Procedure Note Radiology, Radiologist, MD - 02/09/2023 [place] [address] Ultrasound Report Signed Patient: DANELLE MISTRY#: [id number] : 2000Acct:[id number] Age/Sex: 22 / FADM Date: 02/09/23 Loc: US Attending Dr: Rebecca MCMILLAN Ordering Physician: Rebecca MCMILLAN Date of Service: 02/09/23 Procedure(s): US renal BI Accession Number(s): [id number] cc: Rebecca MCMILLAN ; Mirna Aguilera M.D. [place] [address] Patient Name: DANELLE MISTRY MRN: [id number] date: 2000 Sex: F Assigned Patient Location: US Current Patient Location: US Accession/Order Number: [id number] Exam Date: 02/09/2023 07:02 Report Date: 02/09/2023 12:15 At the request of: Rebecca MCMILLAN Procedure: US renal BI EXAM: US renal BI HISTORY: N20.0. History of renal calculi. COMPARISON: None. TECHNIQUE: Ultrasound study of the kidneys was performed. FINDINGS: Right kidney measures 10.7 x 3.9 x 4.3 cm, left kidney eqaknahf17.2 x 4.3 x 4.4 cm in longitudinal, [...] M.D. Signed By:02/09/23 1218 DD/ 1215 TD/TT: Grade And Center Marker: Authorizing ProviderResult TypeResult StatusGebrando Mcmillan DOCLINISYNC IMAGING Final Result documented in this encounter Visit Diagnoses Not on filedocumented in this encounter Care Teams Team MemberRelationshipSpecialtyStart DateEnd Date Franky Mcmillan DO [address] [place] [address] [facility] - [facility] Franky Mcmillan DO [address] [place] [address] PCP - Anselmo Mcneill05/16/21documented as of this encounter
--- OUTSIDE RECORDS SUMMARY | 2024-12-26 12:54 | XMS_ITS | Clinical Summary ---
Author Organization [facility] Address [facility] [place] [address] Care Team Providers Care Log Rider Name Role Phone Unavailable Primary Care Provider Unavailabl e Allergies No known active allergies Medications MedicationSigDispense QuantityRefillsLast FilledStart DateEnd DateStatus metFORMIN (GLUCOPHAGE) 500 mg tablet One tablet three times daily with meals.11/18/2022ctive sertraline (ZOLOFT) 25 mg tablet Take 25 mg by mouth.11/16/2023ctive ferrous sulfate (IRON) 325 mg (65 mg iron) tablet Take 1 tablet by mouth two times a day.01/21/2024ctive Wqgcdmrq-De-Wha-Fe-FA tab Take 1 tablet by mouth once daily.01/21/2024ctive Active Problems ProblemNoted DateDiagnosed DateObesity, Class I, BMI 30-34.91 Family History Medical HistoryRelationCommentsColon CancerPaternal GrandfatherRelationStatus CommentsPaternal Grandfather Social History Tobacco UseTypesPacks/DayYears UsedDateSmoking Tobacco: NeverSmokeless Tobacco: Never Tobacco Cessation:Counseling Given: Not Answered Area Deprivation IndexAnswerDate RecordedNational Score (1-100), lower number is lower xlzd631912/13/2023State Score (1-10), lower number is lower bnyy559 Data from: https://www.neighborhoodatlas.medicine.[facility].edu/. Last address used for [address] regnantCommentsUnknownSex and Gender InformationValueDate RecordedSex Assigned at BirthNot on fileLegal Sex Tmyusw1509/13/2023 2:39 PM EDTGender IdentityNot on fileSexual OrientationNot on file Last Filed Vital Signs Vital SignReadingTime TakenCommentsBlood Ryhtiutc505/9512/13/2023 1:56 PM EDT Pulse--Temperature--Respiratory Rate--Oxygen Saturation--Inhaled Oxygen Concentration--Tkqdia51.7 kg (178 lb)12/21/2023 10:44 AM XVBCudhuu668 cm (5' 3 ) 12/21/2023 10:44 AM ESTBody Mass Index31.5312/21/2023 10:44 AM EST Plan of Treatment Health MaintenanceDue DateLast DoneCommentsPeds To Adult Transition Initial Hvakvhcyyp14/04/2012Peds To Adult Transition Annual Ihrlxjgodr41/04/2014HPV Vaccine (1 - 3-dose series)05/19/2014nxiety Zejxkhibv86/04/2018Depression Egbiatcbr34/04/2018Cervical Cancer Lnlpzsadk63/04/2021DTaP,Tdap,Td Vaccine (7 - Td or Tdap)/04/2011, 08/21/2004, 06/17/2000, Additional history existsCovid-19 Vaccine ( season)501/, 02/13/2020 Influenza Vaccine (#1)511/, 02/04/2009, 02/04/2009, Additional history existsHepatitis B GkdcdwnCessuslda31/05/2001, 2000, 2000HIV VutrzzxlfPdgkeqorw51/28/2024Hepatitis C XnjcpmaygNppuroekt51/28/2024 Procedures Procedure NamePriorityDate/TimeAssociated DiagnosisCommentsHIV 1/2 COMBO WITH REFLEX TO FXKNQICMNCJJVYEPrxkmwl67/28/2024 2:46 PM EDT Encounter of female for testing for genetic disease carrier status for procreative management HEPATITIS C ANTIBODY IA WITH CQLKCYNOUHXXUoinfan71/28/2024 2:46 PM EDT Encounter of female for testing for genetic disease carrier status for procreative management from Last 3 Months or Most Recently Relevant to Health Maintenance Results * HIV 1/2 COMBO WITH REFLEX TO DIFFERENTIATION (12/13/2023 2:46 PM EDT)Component ValueRef RangeTest MethodAnalysis TimePerformed AtPathologist SignatureHIV 12 Combo (Ag/Ab)KwlvkdimdtyJlkjddyiuzc15/29/2024 10:26 AM [facility]HIV-[facility]/2 AB (Confirmatory)12/14/2023 10:26 AM [facility] LABComment:Test not indicated.HIV Nkgzzbfzhkeens95/29/2024 10:26 AM [facility] LABComment: No evidence of HIV-1 or HIV-2 infection. Should recent infection be suspected, repeat testing may be considered 2-3 weeks after this draw. [place] Rev. Code 3701.243(E): This information has been disclosed to you from confidential records protected from disclosure by state law. ??You shall make no further disclosure of this information without the specific, written, and informed release of the individual to whom it pertains or as otherwise permitted by state law. A general authorization for the release of medical or other information is not sufficient for the purpose of the release of HIV test results or diagnoses. Specimen (Source)Anatomical Location / LateralityCollection Method / Volume Collection TimeReceived TimeBloodBLOOD SPECIMEN / UnknownVenipuncture / Unknown 12/13/2023 2:46 PM EDT1 2:46 PM EDT Narrative Authorizing ProviderResult TypeResult StatusMinbob Arthur MDLABORATORYFinal ResultPerforming OrganizationAddressCity/State/[facility] CodePhone Number [facility] [address] * HEPATITIS C ANTIBODY IA WITH CONFIRMATION (12/13/2023 2:46 PM EDT)Component ValueRef RangeTest MethodAnalysis TimePerformed AtPathologist SignatureHep C Antibody ZXOtpnedgcAxfspllc84/29/2024 10:05 AM [facility] LABComment:The result suggests no evidence of active infection with Hepatitis C virus. Should recent infectionbe suspected, repeat testing may be considered 4-6 weeks after this draw.Specimen (Source)Anatomical Location / Laterality Collection Method / VolumeCollection TimeReceived TimeBloodBLOOD SPECIMEN / UnknownVenipuncture / Tkcqlgp6912/13/2023 2:46 PM EDT1 2:46 PM EDT Narrative Authorizing ProviderResult TypeResult StatusMinbob Arthur MDLABORATORYFinal ResultPerforming OrganizationAddressCity/State/ZIP CodePhone Number [facility] [address] [facility] [address] [place] [address], [place] from Last 3 Months or Most Recently Relevant to Health Maintenance Insurance
--- OUTSIDE RECORDS SUMMARY | 2024-12-26 12:54 | XMS_ITS | Encounter Summary ---
Author Organization [facility] Address [address] [place] [address] Care Team Providers Care Plant Electrician Name Role Phone Franky Mcmillan DO Primary Care Provider [phone] Encounter Details DateTypeDepartmentCare Team (Latest Contact Info)Utghxfzsdqi16/29/2025Results Follow-Up [facility] Specialty Providers on Main [address] [address] Roge Smith PA-C [address] [place] [address] [address] Social History Tobacco UseTypesPacks/DayYears UsedDateSmoking Tobacco: NeverSmokeless Tobacco: NeverAlcohol UseStandard Drinks/WeekCommentsNever0 (1 standard drink = 0.6 oz pure alcohol)AUDIT-CAnswerDate RecordedQ1: How often do you have a drink containing alcohol?Never01/16/2020Average Number of DrinksNot on file01/16/2020 Frequency of Binge DrinkingNot on file01/16/2020CommentsUnknownSex and Gender InformationValueDate RecordedSex Assigned at BirthNot on fileLegal Sex Gfyyzv9511/17/2017 1:59 PM EDTGender IdentityNot on fileSexual OrientationNot on filedocumented as of this encounter Plan of Treatment Not on file documented as of this encounter Visit Diagnoses Not on filedocumented in this encounter Care Teams Team MemberRelationshipSpecialtyStart DateEnd Date Franky Mcmillan DO [address] [place] [address] PCP - GeneralFamily Medicine10/03/24documented as of this encounter
--- OUTSIDE RECORDS SUMMARY | 2024-12-26 12:55 | XMS_ITS | Clinical Summary ---
Author Organization [facility] Address [address] [facility], [address] [place] [address] Care Team Providers Care Marketing Forecaster Name Role Phone Franky Mcmillan DO Primary Care Provider [phone] Allergies Active AllergyReactionsCriticalityNoted DateCommentsLactose Intolerance (Gi) 10/06/20240641JmsgMyxfw05/25/2024 Medications MedicationSigDispense QuantityRefillsLast FilledStart DateEnd DateStatus escitalopram (LEXAPRO) 20 MG tablet Take 1 tablet by mouth daily 90 tablet ctive Additional Information Patient not taking.Reason: Other (alternate therapy), Reported on 10/06/2024 Drospiren-Eth Estrad-Levomefol (BEYAZ) 3-0.02-0.451 MG TABS Indications:PMDD (premenstrual dysphoric disorder)Take 1 tablet by mouth daily 28 tablet ctive Additional Information Patient not taking.Reason: Other, Reported on 10/06/2024 metFORMIN (GLUCOPHAGE) 500 MG tablet Take 1 tablet by mouth 2 times daily (with meals)Active docusate sodium (COLACE) 100 MG capsule Take 1 capsule by mouth 1 timeActive sertraline (ZOLOFT) 50 MG tablet Take 1 tablet by mouth dailyActive Active Problems ProblemNoted DateDiagnosed DateAKI (acute kidney injury)10/04/2024Ureteral uvbaceib41/19/0605Wgubbmz36/06/0120Jboaemnu90/03/2020Panic /01/2020 PMDD (premenstrual dysphoric disorder)01/16/2020 Encounters DateTypeDepartmentCare DetkUfzzztttsmw39/29/2025Results Follow-Up [facility] on Main [place] [address] [place] [address] Roge Smith, BRANDON 10/06/2024 11:15 AM EDTOffice Visit [facility] Part of [address] [place] [address] Nikia Crawley, SUPERVISOR CUSTOMER COMPLAINT SERVICE - FIELD RADIO OPERATOR Ureteral stone with hydronephrosis (Primary Dx); LYLA (acute kidney injury)10/05/2024Results Follow-Up [facility] Part of [address] [place] [address] Nikia Crawley APRN - FIELD RADIO OPERATOR 10/04/2024 9:41 AM EDTAnesthesia Event [facility] OR [address] [place] [address] Tru Ramos APRN - PHLEBOTOMY MANAGER 10/04/2024 9:23 AM EDT - 10/04/2024 10:18 AM EDTSurgery [facility] OR [address] [place] [address] Nicolas Friedman MD RIGHT TLL CYSTOSCOPY URETERAL STENT THYYJATVY30/20/2025 9:15 AM EDT - 10/06/2024 11:59 PM EDTHospital Encounter [facility] Radiology [address] [place] [address] Nicolas Friedman MD Elective surgery Discharge Disposition: Home or Self Care10/04/2024 8:02 AM EDT - 10/04/2024 12:03 PM EDTHospital Encounter [facility] OR [address] [place] [address] Nicolas Friedman MD LYLA (acute kidney injury); Ureteral stone with hydronephrosis Discharge Disposition: Home or Self Care10/04/20245761Krstvi07/19/2025 5:58 PM EDT - 10/03/2024 11:59 PM EDTHospital Encounter [address] [id number] Discharge Disposition: Home or Self Care10/03/2024 4:35 PM EDT - 10/03/2024 5:57 PM EDTHospital Encounter [place] [id number] LYLA (acute kidney injury); Ureteral stone with hydronephrosis Discharge Disposition: Home or Self Care10/03/2024 3:00 PM EDTOffice Visit [facility] Part of [address] [place] [address] Nikia Crawley SUPERVISOR CUSTOMER COMPLAINT SERVICE - FIELD RADIO OPERATOR LYLA (acute kidney injury) (Primary Dx); Ureteral stone with hydronephrosis; At risk for bqetgpsljkksz30/19/2025Telephone [facility] Part of [address] [place] [address] Nikia Crawley SUPERVISOR CUSTOMER COMPLAINT SERVICE - FIELD RADIO OPERATOR Surgery Dswupqdjkf54/19/2025Orders Only [facility] Part of [address] [place] [address] Provider, MD Gustabo 10/03/2024bstract [facility] Part of [address] [place] [address] Nikia Crawley, SUPERVISOR CUSTOMER COMPLAINT SERVICE - FIELD RADIO OPERATOR 10/03/2024Telephone [facility] Part of [address] [place] [address] Nikia Crawley SUPERVISOR CUSTOMER COMPLAINT SERVICE - FIELD RADIO OPERATOR from Last 3 Months Immunizations ImmunizationAdministration DatesNext DueDTaP, DAPTACEL, (age 6w-6y), IM, 0.5mL 08/21/2004,06/17/2000,1999,1999,1999Hep A, HAVRIX, VAQTA, (age 12m-18y), IM, 0.5mL03/21/2012,09/18/2011Hib PRP-OMP, PEDVAXHIB, (age 2m-6y, Adlt Risk), IM, 0.5mL04/06/2000,1999,1999,1999Influenza Virus Ftjceqp2101/14/2018,02/04/2009,01/07/2009MMR, PRIORIX, M-M-R II, (age 12m+), SC, 0.5mL08/21/2004,2000Meningococcal ACWY, MENACTRA (MenACWY-D), (age 9m- 55y), IM, 0.5mL09/05/2015,09/18/2011Poliovirus, IPOL, (age 6w+), SC/IM, 0.5mL 08/21/2004,2000,1999,1999TDaP, ADACEL (age 10y-64y), BOOSTRIX (age 10y+), IM, 0.5mL09/18/2011Varicella, VARIVAX, (age 12m+), SC, 0.5mL 06/17/2000 Family History Medical HistoryRelationNameCommentsHigh Blood PressureFatherCancerMaternal GrandfatherHigh CholesterolMaternal GrandfatherHypertensionMaternal Grandfather Polycystic Ovary SyndromeMotherRelationNameStatusCommentsFatherAliveMaternal GrandfatherMotherAlive Social History Tobacco UseTypesPacks/DayYears UsedDateSmoking Tobacco: NeverSmokeless Tobacco: Never Tobacco Cessation:Counseling Given: Not Answered Alcohol UseStandard Drinks/WeekCommentsNever0 (1 standard drink = 0.6 oz pure alcohol)AUDIT-CAnswerDate RecordedQ1: How often do you have a drink containing alcohol?Never01/16/2020Average Number of DrinksNot on file01/16/2020Frequency of Binge DrinkingNot on file01/16/2020CommentsUnknownSex and Gender InformationValueDate RecordedSex Assigned at BirthNot on fileLegal SexFemale 11/17/2017 1:59 PM EDTGender IdentityNot on fileSexual OrientationNot on file Last Filed Vital Signs Vital SignReadingTime TakenCommentsBlood Ghtumcvq377/8208/ 11:11 AM EDT Saugz3625/ 11:30 AM XOLFbimgpdxnfp83.3 ??C (97.3 ??F)10/06/2024 11:11 AM EDTRespiratory Klsr731910/04/2024 11:30 AM EDTOxygen Bndjxmmtsu13%10/04/2024 11:10 AM EDTInhaled Oxygen Concentration--Usojgo48.8 kg (187 lb)10/06/2024 11:11 AM OFJHxccpv429 cm (5' 3 )10/06/2024 11:11 AM EDTBody Mass Index33.1308 11:11 AM EDT Plan of Treatment Health MaintenanceDue DateLast DoneCommentsVaricella vaccine (2 of 2 - 2-dose childhood series)Depression Mhpvgshldj00/04/2012HIV screen 05/19/2014HPV vaccine (1 - 3-dose series)05/19/2014Hepatitis C gmlarl1605/19/2017 Pap smear05/19/2020Flu vaccine (#1)5103/16/2017, 02/04/2009, 02/04/2009, Additional history existsCOVID-19 Vaccine ( - 2024- season)2024 03/12/2020, 02/13/2020GFR test (Diabetes, CKD 3-4, OR last GFR 15-59)10/03/2025 10/03/2024DTaP/Tdap/Td vaccine (8 - Td or Tdap)5009/11/2024, 09/18/2011, 08/21/2004, Additional history existsHepatitis B bznhciuCywuslixy66/05/2001, 1999, 1999Hib hpzesezQwgbqwrfi59/05/2001, 2000, 1999, Additional history existsPolio zdzojwxRawkigllc48/07/2005, 2000, 1999, Additional history existsHepatitis A nslblmzFkwuwjgsu27/04/2013, 09/18/2011Meningococcal (ACWY) zmpwpcpJytlvpeuf15/21/2016, 09/18/2011 Meningococcal B vaccineAged OutNo longer eligible based on patient's age to complete this topicPneumococcal 0-49 years VaccineAged OutNo longer eligible based on patient's age to complete this topic Medical Devices ImplantedTypeAreaManufacturerDevice IdentifierShelf Expiration DateModel / Serial / LotStent 24cm X 6fr - [id number] Implanted:Qty: 1 on 10/04/2024 [facility] NoiseFree Javier.04/05/[id number] / / [id number] Procedures Procedure NamePriorityDate/TimeAssociated DiagnosisCommentsFLUORO FOR SURGICAL THOPTSCAKINlvtvkk66/20/2025 10:25 AM EDT Elective surgery STONE DSYPGFUOWtzehle29/20/2025 10:17 AM EDT LYLA (acute kidney injury) Ureteral stone with hydronephrosis ANESTHESIA HINDULHxkxqkq01/20/2025 9:46 AM EDT ME CYSTO/URETERO W/LITHOTRIPSY &INDWELL STENT INSRT10/04/2024 9:41 AM EDT LYLA (acute kidney injury) Ureteral stone with hydronephrosis Case Notes SS/ Dominga 10/03/24Radiology- [address] [facility]- [address]; confirmation #: [id number] Special Needs SS/ Dominga 10/03/24Radiology- [address] [facility]- [address]; confirmation #: [id number]- [id number] POCT MMOVIOCLbgtzkx10/20/2025 8:37 AM EDT , RXRIIZIYT43/20/2025 8:20 AM EDT CULTURE, ZHEHIUdlezwg79/19/2025 5:04 PM EDT LYLA (acute kidney injury) Ureteral stone with hydronephrosis BASIC METABOLIC KRUWXQFAX68/19/2025 4:41 PM EDT LYLA (acute kidney injury) CT ABDOMEN PELVIS W WO FSICAGCBHgnudeo99/18/2025 3:32 PM EDTURINALYSISRoutine 10/02/2024 3:27 PM EDTfrom Last 3 Months Results * FL FOR SURGICAL PROCEDURES (10/04/2024 10:25 AM EDT)Specimen (Source) Anatomical Location / LateralityCollection Method / VolumeCollection Time Received Time Narrative [facility] - 10/04/2024 10:25 AM EDT Radiology exam is complete. No Radiologist dictation. Please follow up with ordering provider. Authorizing ProviderResult TypeResult StatusThomas Idalia WARNERIMG FLUOROSCOPY ORDERABLESFinal ResultPerforming OrganizationAddressCity/State/ZIP CodePhone Number [facility] * Stone Analysis (10/04/2024 10:17 AM EDT)ComponentValueRef RangeTest Method Analysis TimePerformed AtPathologist SignatureSpecimen oazvtnZIZJDS32/20/2025 10:17 AM EDTQUESTComponentSEE BELOW10/04/2024 10:17 AM EDTQUESTComment: Calcium Oxalate Dihydrate (Weddellite) 60% Calcium Oxalate Monohydrate (Whewellite) 20% Carbonate Apatite (Dahllite) 20% Stone Weight0.004g010/04/2024 10:17 AM EDTQUESTComment: Formalin, surgical gel, tape adhesive or transport media interfere with the analytical procedure. Follow up testing with the UroRisk(R) Panel is suggested for affected samples, if clinically indicated. This test was developed and its analytical performance characteristics have been determined by [facility]. It has not been cleared or approved by the FDA. This assay has been validated pursuant to the CLIA regulations and is used for clinical purposes. ? Test performed by [employer], [employer] ?[address] [facility], ?[place] [address] ? Car Hopper: Kaela Urbano MD,PHD,[place] Test Reported by Carloz Engel, [facility], [address] [place], [place] Reece Huizar M.D., Ph.D., Director of Laboratories , [facility] [id number] Specimen (Source)Anatomical Location / LateralityCollection Method / Volume Collection TimeReceived TimeStone (Calculus)URETHRAL SWAB / Fvmjmsa6010/04/2024 10:17 AM EDTComment:Pre-op diagnosis: LYLA (acute kidney injury) [N17.9] Ureteral stone with hydronephrosis [N13.2] Narrative [facility] - 10/13/2024 1:52 AM EDT [facility] Testing performed at: [employer], [facility], [address] [place] [address], , Protection Manager: Reece Huizar MD PhD [facility] Collection Date/Time: [facility] Results Received Date/Time: [facility] Reported Date/Time: [id number] stone with hydronephrosis [N13.2]LYLA (acute kidney injury) [N17.9]Pre-op diagnosis: Authorizing ProviderResult TypeResult StatusThomas Idalia MDMICROBIOLOGY - GENERAL ORDERABLESFinal ResultPerforming OrganizationAddressCity/State/ZIP Code Phone Number [place] [phone] [facility] * Airway (10/04/2024 9:46 AM EDT) Narrative Tru Ramos APRN - CRNA - 10/04/2024 9:46 AM EDT Tru Ramos APRN - CRNA 10/04/2024 9:56 AM Airway Date/Time: 10/04/2024 9:46 AM Reason: elective Airway not difficult General Information and Staff Patient location during procedure: OR Resident/PHLEBOTOMY MANAGER: Tru Ramos APRN - CRNA Performed by: Tru Ramos APRN - CRNA Authorized by: Tru Ramos APRN - CRNA ?? Patient Condition Indications for airway management: anesthesia Patient position: sniffing Sedation level: deep Final Airway Details Preoxygenated: yes Final airway type: supraglottic airway Successful airway: oropharyngeal Size: 4 Ventilation between attempts: bag mask Number of attempts at approach: 1 Number of other approaches attempted: 0 Authorizing ProviderResult TypeResult StatusLawrence W Richard SUPERVISOR CUSTOMER COMPLAINT SERVICE - PHLEBOTOMY MANAGER ANESTHESIA ORDERABLESFinal Result * POCT Glucose (10/04/2024 8:37 AM EDT)ComponentValueRef RangeTest Method Analysis TimePerformed AtPathologist SignaturePOC Jfxkojb6186/20/2025 8:37 AM EDTWKETTERING HEALTH PREBLE LABSpecimen (Source)Anatomical Location / Laterality Collection Method / VolumeCollection TimeReceived TimeBlood Whole10/04/2024 8:37 AM EDT10/04/2024 8:41 AM EDT Narrative [facility] - 10/04/2024 8:41 AM EDT Ordered by an unspecified provider Authorizing ProviderResult TypeResult StatusUnknown Provider ResultPOINT OF CARE TEST ORDERABLESFinal ResultPerforming OrganizationAddressCity/State/[facility] Code Phone Number [facility] [address] [place] [address] * , Urine (10/04/2024 8:20 AM EDT)ComponentValueRef RangeTest Method Analysis TimePerformed AtPathologist SignaturePregnancy, UrineNEGATIVENEGATIVE 10/04/2024 8:20 AM EDTPROMEDICA TOLEDO HOSPITAL LABComment: Negative result = No presence of detectable hCG Positive result = hCG concentration detected greater than or equal to 25 mIU/mL Positive results should be evaluated with respect to the clinical situation. ??False positive results have been known to occur in the presence of heterophile antibodies or non-specific proteins. ??If a qualitative interpretation is inconsistent with the clinical evidence, results should be confirmed with quantitative hCG testing. Specimen (Source)Anatomical Location / LateralityCollection Method / Volume Collection TimeReceived TimeUrine (Urine)10/04/2024 8:20 AM EDT10/04/2024 8:35 AM EDT Narrative Authorizing ProviderResult TypeResult Yakelin Friedman MDURINE ORDERABLES Final ResultPerforming OrganizationAddressty/[facility] CodePhone Number [facility] [address] [place] [address] * Culture, Urine (10/03/2024 5:04 PM EDT)ComponentValueRef RangeTest Method Analysis TimePerformed AtPathologist SignatureSpecimen Description.CLEAN CATCH URINE10/03/2024 5:04 PM [facility] LABSpecial Requests Site: Urine10/03/2024 5:04 PM [facility] LABCultureNO SIGNIFICANT GTIEIE1110/03/2024 5:04 PM [facility] LABORATORIESSpecimen (Source) Anatomical Location / LateralityCollection Method / VolumeCollection Time Received TimeUrineURINE SPECIMEN / Hlthaht7010/03/2024 5:04 PM EDT10/03/2024 5:04 PM EDT Narrative Authorizing ProviderResult TypeResult StatusBethquoc Crawley SUPERVISOR CUSTOMER COMPLAINT SERVICE - FIELD RADIO OPERATOR MICROBIOLOGY - GENERAL ORDERABLESFinal ResultPerforming OrganizationAddress City/State/ZIP CodePhone Number [facility] [address] [place] [address], [facility] [phone] [place] [address] [place], [place] [address] [phone] * (ABNORMAL) Basic Metabolic Panel (10/03/2024 4:41 PM EDT)ComponentValueRef RangeTest MethodAnalysis TimePerformed AtPathologist KlemdenexAnqqjh993452 - 145 mmol/L10/03/2024 4:41 PM [facility] LABPotassium4.2 3.7 - 5.3 mmol/L10/03/2024 4:41 PM [facility] Ylwhbecx85174 - 107 mmol/L10/03/2024 4:41 PM [facility] BJYPH32626 - 31 mmol/L10/03/2024 4:41 PM [facility] Anion Mab398 - 16 mmol/L10/03/2024 4:41 PM [facility] LAB Sxtdakz81(L)74 - 99 mg/dL10/03/2024 4:41 PM [facility] YHHNFN655 - 20 mg/dL10/03/2024 4:41 PM [facility] LAB Creatinine1.5(H)0.50 - 0.90 mg/dL10/03/2024 4:41 PM [facility] LABEst, Glom Filt Rate51(L)>60 mL/min/1.75y39210/03/2024 4:41 PM EDT [facility] LABComment: ? These results are not intended for use in patients <18 years of age. ? eGFR results are calculated without a race factor using the 2020 CKD-EPI equation. Careful clinical correlation is recommended, particularly when comparing to results calculated using previous equations. The CKD-EPI equation is less accurate in patients with extremes of muscle mass, extra-renal metabolism of creatine, excessive creatine ingestion, or following therapy that affects renal tubular secretion. BUN/Creatinine Rurom647 - 4:41 PM [facility] LABCalcium9.08.6 - 10.4 mg/dL10/03/2024 4:41 PM [facility] LABSpecimen (Source)Anatomical Location / LateralityCollection Method / Volume Collection TimeReceived TimeBloodBLOOD SPECIMEN / Nqvvrfp5810/03/2024 4:41 PM EDT 10/03/2024 4:42 PM EDT Narrative Authorizing ProviderResult TypeResult StatusBethany W Misbah SUPERVISOR CUSTOMER COMPLAINT SERVICE - FIELD RADIO OPERATOR CHEMISTRY ORDERABLESFinal ResultPerforming OrganizationAddressCity/State/ZIP CodePhone Number [facility] [address] [place] [id number] [phone] * CT ABDOMEN PELVIS W WO CONTRAST (10/02/2024 3:32 PM EDT)Anatomical Region LateralityModalityAbdomen, Pelvis, HipComputed Tomography Narrative Authorizing ProviderResult TypeResult StatusHistorical Provider MOO CT ORDERABLESFinal Result * Urinalysis (10/02/2024 3:27 PM EDT)Specimen (Source)Anatomical Location / LateralityCollection Method / VolumeCollection TimeReceived TimeUrine Narrative Authorizing ProviderResult TypeResult StatusHistorical Provider ALBERTINA ORDERABLESFinal Result from Last 3 Months Insurance Advance Directives * Full Code (Latest Code Status on File) Date ActivatedDate InactivatedComments10/04/2024 8:30 AM10/04/2024 2:08 PM Care Teams Team MemberRelationshipSpecialtyStart DateEnd Date Franky Mcmillan DO [address] [place] [address] PCP - GeneralFamily Medicine10/03/24
--- OUTSIDE RECORDS SUMMARY | 2024-12-26 13:00 | XMS_ITS | CCD ---
Author Organization [facility] Care Team Providers Care Gas Dispatcher Name Role Phone Joby Sparks Unavailable DO Moe Mcmillan Primary Care Provider [phone] DO Moe Mcmillan Attending Provider DANNA, PHILL Consulting Unavailable DANNA, PHILL Attending Unavailable DANNA, PHILL Admitting Unavailable DANNA, PHILL Consulting Unavailable DANNA, PHILL Attending Unavailable DANNA, PHILL Admitting Unavailable DANNA, PHILL Admitting Unavailable DANNA, PHILL Consulting Unavailable DANNA, PHILL Attending Unavailable DO Moe Mcmillan Primary Care Provider [phone] ANNA Cat Emergency Provider Rebecca MCMILLAN Primary Care Physician DO Moe Mcmillan Primary Care Provider [phone] DO Moe Mcmillan Referring Provider MD Pippa Lane Attending Provider [phone] DO Moe Mcmillan Primary Care Provider DO Moe Mcmillan Referring Provider MD Pippa Lane Attending Provider DO Mandy Patel Attending Provider MD Alok Sandhu Attending Provider Unavailable Primary Care Provider Unavailabl e Anette Mcmillan DO Primary Care Provider Anette Mcmillan DO Unavailable Moe Mcmillan DO Primary Care Provider Moe Mcmillan DO Referring Provider Pippa Lane MD Attending Provider ADRIAN, SARA G Attending Unavailable SANDHYA, MARINA Referring Unavailable CARLO, BARBARA Referring Unavailable ADRIAN, SARA G Attending Unavailable CARLO, BARBARA Referring Unavailable SELF Referring Unavailable SANDHYA, MARINA Attending Unavailable SELF Referring Unavailable SANDHYA, MARINA Attending Unavailable ADRIAN, SARA G Referring Unavailable ADRIAN, SARA G Attending Unavailable Moe Mcmillan DO Primary Care Provider Moe Mcmillan DO Referring Provider Domingo WARNER, Pippa Moseley Attending Provider Mandy Patel DO Attending Provider Moe Mcmillan DO Primary Care Provider Moe Mcmillan DO Referring Provider Pippa Lane MD Attending Provider [phone] Corina Hernandez MD Attending Provider Aric Norris APRN Emergency Provider Myrna CASTILLO [facility] Emergency Provider Pippa Lane MD Attending Provider Moe Mcmillan DO Referring Provider NO FAMILY, PHYSICIAN Primary Care Provider Soledadva Corina Hagen MD Admit Provider Rj Aden MD Attending Provider Moe Mcmillan DO Primary Care Provider Mandy Patel DO Attending Provider [phone] Corina Hernandez MD Attending Provider Laila Schilling DO Attending Provider BLADIMIR PITTS Referring Unavailable KAFTAN, ANETTE R Primary Care Unavailable BLADIMIR PITTS Referring Unavailable ANETTE MCMILLAN Primary Care Unavailable Mirna Aguilera Attending Unavailable ELMER ROTHMAN Attending Unavailable ELMER ROTHMAN Admitting Unavailable ANETTE MCMILLAN Primary Care Unavailable RINKES, MANDY E Attending Unavailable RINKES, MANDY E Referring Unavailable RINKES, MANDY E Attending Unavailable RINKES, MANDY E Attending Unavailable KAANETTE WANG Attending Unavailable ANETTE MCMILLAN Referring Unavailable RINKES, MANDY E Attending Unavailable RINKES, MANDY E Attending Unavailable RINKES, MANDY E Attending Unavailable RINKES, MANDY E Attending Unavailable RINKES, MANDY E Attending Unavailable RINKES, MANDY E Attending Unavailable RINKES, MANDY E Attending Unavailable RINKES, MANDY E Attending Unavailable RINKES, MANDY E Attending Unavailable RINKES, MANDY E Attending Unavailable RINKES, MANDY E Attending Unavailable Marshaan Moe CHEUNG Primary Care Provider Pippa Lane MD Attending Provider Moe Mcmillan DO Referring Provider [phone] David, Penola P Admitting Unavailable Mauricio Hernandezola P Attending Unavailable Moe Mcmillan Primary Care Unavailable David, Penola P Admitting Unavailable Mauricio Hernandezola P Attending Unavailable Moe Mcmillan Primary Care Unavailable Hernandez, Penola P Admitting Unavailable Mauricio Hernandezola P Attending Unavailable Moe Mcmillan Primary Care Unavailable Aden, Rj Admitting Unavailable Markie, Rj Attending Unavailable Moe Mcmillan Primary Care Unavailable Rinkes, Mandy Admitting Unavailable Rinkes, Mandy Attending Unavailable NO FAMILY, PHYSICIAN Primary Care Unavailable Luis Norrisothy Admitting Unavailable Aric Norris Attending Unavailable Moe Mcmillan Primary Care Unavailable MarkerLaila Admitting Unavailable Marker, Laila Crespo Attending Unavailable Moe Mcmillan Primary Care Unavailable Rinkes, Mandy Admitting Unavailable Rinkes, Mandy Attending Unavailable Moe Mcmillan Primary Care Unavailable Pippa Lane Admitting Unavailabl e Pippa Lane Attending Unavailabl e Moe Mcmillan Referring Unavailable Moe Mcmillan Primary Care Unavailable Rj Aden Admitting Unavailable Rj Aden Attending Unavailable Moe Mcmillan Primary Care Unavailable Allergies Allergy ClassificationReported Allergen(s)Allergy TypeDate of OnsetReaction(s) Facility (20 sources)Zinc; Translations: [Zinc Sulfate]Drug Ndodqpb47-03-7876Mzol (disorder), [facility] (5 sources)Dairy; Translations: [Dairy]Propensity to adverse reactions to food Bowel problem (finding)[facility] (20 sources)Lactase / Lactobacillus acidophilusDrug Quhxsfk56-89-6208[facility] Work Phone: Medications Current Medications MedicationDrug Class(es)DatesSig (Normalized)Sig (Original)dicyclomine hydrochloride 20 mg oral tablet (1 source)AnticholinergicStart: 62-75-3503yrpx 1 tablet by mouth three times daily as neededDicyclomine HCl 20 MG 1 tablet Orally Three times a day PRN for 30 day(s) June, Active{24 (drospirenone 3 MG / ethinyl estradiol 0.02 MG Oral Tablet) / 4 (inert ingredients 1 MG Oral Tablet) } Pack [Corina 28 Day] (1 source)Progestin, Estrogentake 1 tablet by mouth every twenty-four hoursYAZ 3-0.02 MG 1 tablet Orally Once a day ActivemetFORMIN hydrochloride 500 mg oral tablet (20 sources)BiguanideStart: 05-76-6600xixh 1 tablet by mouth twice dailyStart: 11-18-2022 End: 61-08-8256brwo 1 tablet by mouth three times daily at mealtimemetFORMIN (Glucophage) 500 MG tablet Indications: PCOS (polycystic ovarian syndrome) TAKE ONE TABLET BY MOUTH THREE TIMES A DAY WITH A MEAL 90 tablet 11 12/15/2023 10/19/2024 Discontinuednystatin 100 unt/mg / triamcinolone acetonide 0.001 mg/mg topical ointment (2 sources)Polyene Antifungal, CorticosteroidStart: 09-21-2024 End: 63-65-8623hbepqlrm-triamcinolone (Mycolog II) ointment Indications: Acute vulvitis Apply topically in the morning and before bedtime. Do all this for 7 days. 30 g 2 09/21/2024 09/28/2024 ActivePrenatal Jmlbxeqi-Ek-Sxf-Fe-FA tab (3 sources)Start: 24-90-3338jvpf 1 tablet by mouth once dailyPrenatal Neaxapiq-Qj-Kvj-Fe-FA tab Take 1 tablet by mouth once daily. 01/21/2024 Active Vit w/Ou-Rrpstqoaw-AJ (PNV PO) (20 sources) End: 85-58-8487Uobratxf Vit w/Fk-Pkdguedhc-FU (PNV PO) Take by mouth 10/19/2024 DiscontinuedPrenatal Vit w/Ya-Uoswbbmga-FB (PNV PO) Take by mouth Active sertraline 50 mg oral tablet (20 sources)Serotonin Reuptake InhibitorStart: 09-21-2024 End: 24-57-4163nqmp 1 tablet by mouth once dailysertraline (Zoloft) 50 MG tablet Indications: anxiety (HHS-HCC) Take 1 tablet (50 mg) bymouth Daily 90 tablet 3 09/21/2024 09/21/2025 ActiveStart: 11-16-2023 End: 47-37-7591kugg 1 tablet by mouth once dailyStart: 67-77-5058ofsq 1 tablet by mouth once dailysertraline (Zoloft) 25 MG tablet Indications: Depression, unspecified depression type (CMS/HCC) , Mixed anxiety and depressive disorder Take 1 tablet (25 mg) by mouth Daily 30 tablet 3 10/20/2023 Activevitamin b12 0.1 mg oral tablet (20 sources)Vitamin S33dcmj 1 tablet by mouth once dailycyanocobalamin (Vitamin B-12) 100 MCG tablet Take 100 mcg by mouth Daily Active Completed/Discontinued Medications MedicationDrug Class(es)DatesSig (Normalized)Sig (Original)acetaminophen 325 mg / HYDROcodone bitartrate 5 mg oral tablet (18 sources)Opioid AgonistStart: 01-28-2023 End: 60-25-6676fwnv 1 tablet by mouth every four to six hours as needed for pain Hydrocodone-Acetaminophen 5-325 mg tablet Discontinued 1 TAB PO EVERY 4-6 HOURS as needed for pain 12 January 28, 2023 July 08, 2023 9:28amaspirin 81 mg delayed release oral tablet (20 sources)Platelet Aggregation Inhibitor, Nonsteroidal Anti-inflammatory Drug Start: 05-25-2024 End: 38-42-9674ycvi 1 tablet by mouth once dailyAspirin 81 mg tablet,delayed release (DR/EC) Discontinued 81 MG PO Daily May 25, 2024 12:00am September 11, 2024 11:30am End: 41-49-3723USVL ASPIRIN PO Take by mouth 09/21/2024 DiscontinuedBABY ASPIRIN PO Take by mouth Activecephalexin 500 mg oral capsule (20 sources)Cephalosporin AntibacterialStart: 09-01-2024 End: 37-89-3441suoz 1 capsule by mouth three times dailyCephalexin 500 mg capsule Discontinued 500 MG PO Three times daily 14 12September 01, 2024 12:00am September 09, 2024 5:20amStart: 01-28-2023 End: 27-61-2082wisk 1 capsule by mouth three times dailyCephalexin 500 mg capsule Discontinued 500 MG PO Three times daily 14 12January 28, 2023 1:00amMay 2023 9:28amcholecalciferol 0.025 mg oral capsule (7 sources)Vitamin DStart: 08-03-2024 End: 15-75-9438ines 1 capsule by mouth once dailyCholecalciferol (Vitamin D3) 25 mcg (1,000 unit) capsule Discontinued 25 MCG PO Daily August 03, 2024 12:00am November 15, 2024 10:54amclomiPHENE citrate 50 mg oral tablet (4 sources)Estrogen Agonist/AntagonistStart: 10-13-2023 End: 40-91-6714jgmwoZVIWZ (Clomid) 50 MG tablet Indications: Anovulation Take 2 tablets (100 mg) PO on days 5-9 ofcycle 10 tablet 10/13/2023 01/20/2024 Ndozgkjqsfwf46 hr desvenlafaxine succinate 50 mg extended release oral tablet (20 sources)Serotonin and Norepinephrine Reuptake InhibitorStart: 02-11-2023 End: 96-99-0155tqhr 1 tablet by mouth once daily, then take 1 tablet by mouth every twenty-four hoursDesvenlafaxine Succinate (Pristiq) 50 mg tablet extended release 24 hr Discontinued 50 MG PO Daily July 08, 2023 12:00am February 23, 2024 4:01pmdocusate sodium 100 mg oral capsule (7 sources)Start: 09-10-2024 End: 60-70-9371rold 1 capsule by mouth once dailyDocusate Sodium (Colace) 100 mg capsule Discontinued 100 MG PO Daily September 10, 2024 12:00am November 15, 2024 10:54amdoxycycline hyclate 100 mg oral capsule (3 sources)Tetracycline-class DrugStart: 09-15-2023 End: 75-70-6852wbkaqkkjngq (Vibramycin) 100 MG capsule Indications: Anovulation Take one by mouth the night beforeprocedure and 1 by mouth the morning of procedure 2 capsule 09/15/2023 10/20/2023 Discontinued Drospirenone-E.Estradiol-Lm.Fa (19 sources)Progestin, EstrogenStart: 06-26-2020 End: 74-72-6781Lcjekdxmzmil-E.Estradiol-Lm.Fa 3-0.03-0.451 mg (21) (7) Tablet Discontinued 1 TAB PO Daily June 26, 2020 12:00am July 08, 2023 9:28amStart: 06-26-2020 End: 23-37-9090Ogpntwgndwik-E.Estradiol-Lm.Fa 3-0.03-0.451 mg (21) (7) Tablet Discontinued 1 TAB PO Daily June 25, 2020 11:00pm July 08, 2023 8:28amStart: 06-26-2020 End: 21-26-8064ikzb 1 tablet by mouth once dailyDrospirenone-E.Estradiol-Lm.Fa Discontinued 1 TAB PO Daily June 26, 2020 12:00am July 08, 2023 9:28amStart: 75-44-2313acni 1 tablet by mouth once dailyDrospirenone-E.Estradiol-Lm.Fa Active 1 TAB PO Daily June 25, 2020 11:00pmescitalopram 20 mg oral tablet (20 sources)Serotonin Reuptake InhibitorStart: 06-26-2020 End: 20-67-9863yexc 1 tablet by mouth once dailyEscitalopram Oxalate 20 mg Tablet Discontinued 20 MG PO Daily June 26, 2020 12:00am July 0749:28am ferrous sulfate 325 mg oral tablet (20 sources)Start: 05-25-2024 End: 38-73-9707tibz 1 tablet by mouth twice dailyFerrous Sulfate 325 mg (65 mg iron) tablet Discontinued 325 MG PO Twice daily May 25, 2024 12:00am September 11, 2024 11:30amStart: 25-38-6702hhij 1 tablet by mouth once dailyFerrous Sulfate 325 mg (65 mg iron) tablet Active 325 MG PO Daily May 25, 2024 12:00amStart: 87-39-6872fmai 1 tablet by mouth twice dailyferrous sulfate (IRON) 325 mg (65 mg iron) tablet Take 1 tablet by mouth two times a day. 01/21/2024 Jgizff07 actuat fluticasone furoate 0.05 mg/actuat dry powder inhaler (17 sources)CorticosteroidStart: 07-08-2023 End: 65-22-9444Ywwecvbvmgh Furoate 50 mcg/actuation blister with device Discontinued 2 INH INHALATION Daily July 08, 2023 12:00am July 22, 2024 9:42am hydrOXYzine hydrochloride 25 mg oral tablet (3 sources)AntihistamineStart: 10-20-2023 End: 76-52-9865kgmi 1 tablet by mouth every six hours for anxietyhydrOXYzine HCl (Atarax) 25 MG tablet Indications: Depression, unspecified depression type (CMS/HCC) , Mixed anxiety and depressive disorder Take 1 tablet (25 mg) by mouth every 6 (six) hours if needed for anxiety 30 tablet 10/20/2023 01/20/2024 Discontinuedibuprofen 800 mg oral tablet (5 sources)Nonsteroidal Anti-inflammatory DrugStart: 09-10-2024 End: 49-20-1703wary 1 tablet by mouth every eight hours as needed for pain Ibuprofen 800 mg tablet Discontinued 800 MG PO Every 8 hours as needed for pain September 10, 2024 12:00am November 15, 2024 10:54ammecobalamin 1 mg chewable tablet (7 sources)Start: 08-03-2024 End: 33-00-5850kanr 1 tablet by mouth once dailyMecobalamin (Vitamin B12) 1,000 mcg tablet,chewable Discontinued 1000 MCG PO Daily August 03, 2024 12:00am November 15, 2024 10:54amondansetron 4 mg disintegrating oral tablet (18 sources)Serotonin-3 Receptor AntagonistStart: 01-28-2023 End: 25-59-1630reyi 1 tablet by mouth every eight hours as needed for nausea and vomitingOndansetron 4 mg tablet,disintegrating Discontinued 4 MG PO Q8H as needed for nausea and vomiting January 28, 2023 1:00am July 08, 2023 9:28amPnv No.162-Iron Glu-Folic Acid 12-1 mg tablet (10 sources)Start: 02-23-2024 End: 15-73-1008alop 1 tablet by mouth once dailyPnv No.162-Iron Glu-Folic Acid 12-1 mg tablet Discontinued 1 TAB PO Daily February 23, 2024 1:00am November 15, 2024 10:54amStart: 49-17-3814dpnb 1 tablet by mouth once dailyPnv No.162-Iron Glu-Folic Acid 12-1 mg tablet Active 1 TAB PO Daily February 23, 2024 1:00am Complies with drug therapyStart: 78-17-6040fgsc 1 tablet by mouth once daily Start: 89-01-2644xfyo 1 tablet by mouth once dailyPnv No.162-Iron Glu-Folic Acid 12-1 mg tablet Active 1 TAB PO Daily February 23, 2024 1:00amStart: 02-23-2024 Pnv No.162-Iron Glu-Folic Acid 12-1 mg tablet Active TAB PO February 23, 2024 1:00amStart: 84-63-3329Vke No.162-Iron Glu-Folic Acid 12-1 mg tablet Active TAB PO February 23, 2024 12:00amtamsulosin hydrochloride 0.4 mg oral capsule (18 sources)alpha-Adrenergic BlockerStart: 01-28-2023 End: 34-07-3664qxum 1 capsule by mouth once dailyTamsulosin (Flomax) 0.4 mg capsule Discontinued 0.4 MG PO Daily January 28, 2023 1:00am July 08, 2023 9:28am Problems Active Problems Problem ClassificationProblemDateDocumented DateEpisodic/ChronicAcute and unspecified renal failure (4 sources)Acute kidney failure, unspecified; Translations: [Acute kidney failure, unspecified]Onset: 32-13-3429XnhcxnnjVpzhngbuyayyxh/social admission (6 sources)Encounter for pre-employment examination; Translations: [Treatment plan given]Onset: 79-64-2588ObguhslgIijycvm disorders (20 sources)Mixed anxiety and depressive disorder; Translations: [Other specified anxiety disorders]Onset: 655373-46-0978HdklceuYvattoyswhfef and procreative management (14 sources)Patient encounter status; Translations: [Encounter for fertility testing]Onset: 361288-55-4732AjjruepsPptdnaddbj and other anemia (16 sources)Acquired iron deficiency anemia due to increased iron requirement; Translations: [Other iron deficiency anemias]00-05-8133ExboincoZqfslfyxwx and other anemia (3 sources)Other iron deficiency anemias; Translations: [Iron deficiency anemia secondary to inadequate dietary iron intake]Onset: 485528-84-1621Zkezkwnr Diseases of white blood cells (20 sources)Leukocytosis; Translations: [Elevated white blood cell count, unspecified]Onset: 452517-76-2641BacmqlmTceyrnygd of lipid metabolism (20 sources)Hyperlipidemia; Translations: [Hyperlipidemia, unspecified]Onset: 805610-37-7299GuhcywjHiqncz infertility (3 sources)Female infertility; Translations: [Female infertility, unspecified] Onset: 401711-74-3014PxbgubuGxkljgggyaxhn symptoms and ill-defined conditions (5 sources)Other symptoms and signs involving the genitourinary system; Translations: [Bladder pain]Onset: 39-91-9486DgplxthbOdgzdthu; including migraine (1 source)Headache; including migraine; Translations: [Headache, unspecified] Onset: 60-04-6438Iskdqqkfxpbe diseases of female pelvic organs (2 sources)Acute vulvitis; Translations: [Acute vulvitis]23-34-9480Scjmxdmt Menstrual disorders (2 sources)Irregular periods; Translations: [Irregular menstruation, unspecified]Onset: 629463-88-0959GphwegoAmsw disorders (20 sources)Depressive disorder; Translations: [Premenstrual dysphoric disorder] Onset: 311209-04-5971LalsyigKbpvupcbjkm deficiencies (2 sources)Vitamin D deficiency; Translations: [Vitamin D deficiency, unspecified]Onset: 272329-16-0108FbkbjkfOwhrw complications of ; puerperium affecting management of mother (1 source)Hypogalactia; Translations: [Hypogalactia]Onset: 35-79-0866Qvfkrgpm Other complications of (1 source)Anemia complicating , third trimester; Translations: [Anemia complicating , thirdtrimester]Onset: 60-04-3389ZvwymglYigzx complications of (1 source)Reduced movement; Translations: [Decreased movements, third trimester, not applicable or unspecified]95-02-5520ZykiwygwHxdkj complications of (2 sources)Other mental disorders complicating the puerperium; Translations: [Mental disorders of mother, condition or complication]09-21-2024 EpisodicOther diseases of kidney and ureters (2 sources)Urinary tract obstruction; Translations: [Hydronephrosis with renal and ureteral calculous obstruction]Onset: 96-81-8370PeolibdgMshgx endocrine disorders (1 source)Polycystic ovary syndrome; Translations: [Polycystic ovarian syndrome] 36-71-2425QhahvupVkeif gastrointestinal disorders (1 source)Irritable bowel syndrome with diarrhea; Translations: [Irritable bowel syndrome with diarrhea]ChronicOther gastrointestinal disorders (1 source)Irritable bowel syndrome with diarrheaOnset: 12-18-2020 Resolved: 90-39-4779MpvfgjmYbnns nutritional; endocrine; and metabolic disorders (8 sources)Obese class I; Translations: [Obesity, Class I, BMI 30-34.9]Onset: 146801-72-7745SzalyzyTnbhy and delivery including normal (20 sources) test positive; Translations: [Encounter for test, result positive]Onset: 300380-69-4717QwraqkbyKkqxr screening for suspected conditions (not mental disorders or infectious disease) (4 sources)Cancer cervix screening status; Translations: [Encounter for screening for malignant neoplasm of cervix]Onset: 454317-80-4793Vmthohgf Residual codes; unclassified (1 source)Family history of kidney disease; Translations: [Family history of disorders of kidney and ureter]Onset: 06-78-5081JeuflwczTzlmbyss codes; unclassified (4 sources)Family history of renal reidj90-13-3455HoxnohdzNxnyakvj codes; unclassified (2 sources)Gestation period, 12 weeks; Translations: [12 weeks gestation of ]47-46-9701GgemcoluEbeddtqp codes; unclassified (2 sources)Gestation period, 16 weeks; Translations: [16 weeks gestation of ]91-25-0556CavwhhxcYhhuwdig codes; unclassified (2 sources)Gestation period, 24 weeks; Translations: [24 weeks gestation of ]43-72-2286KchwrypfNexcwqxq codes; unclassified (2 sources)Gestation period, 28 weeks; Translations: [28 weeks gestation of ]95-67-9710RyxxsyksHefyiswl codes; unclassified (2 sources)Gestation period, 30 weeks; Translations: [30 weeks gestation of ]26-42-2682BwfebfvzQdeqfwyi codes; unclassified (2 sources)Gestation period, 32 weeks; Translations: [32 weeks gestation of ]90-56-3242YowllocqMljazfsn codes; unclassified (2 sources)Gestation period, 34 weeks; Translations: [34 weeks gestation of ]34-72-7613LhdhwcmnAudeopgn codes; unclassified (2 sources)Gestation period, 36 weeks; Translations: [36 weeks gestation of ]22-73-4445WjbvixdpSgfygoxv codes; unclassified (5 sources)Gestation period, 37 weeks; Translations: [37 weeks gestation of ]62-24-0800EjkppbqcQjbgldwg codes; unclassified (12 sources)Gestation period, 38 weeks; Translations: [38 weeks gestation of ]10-46-2103QwbkowayCbhpaobt codes; unclassified (10 sources)History of past delivery; Translations: [Personal history of other genital system and obstetric disorders]27-99-6583YdnmsborWpmndgrimeru (3 sources)CONTACT W/AND (SUSP) EXPOS COVID-19; Translations: [CONTACT W/AND (SUSP) EXPOS COVID-19]Onset: 28-07-4328Tnjfcohfhvfi (3 sources)Obstructive jsdtlbglhbzajq46-22-1061Eywewchdoddf (1 source)PregnancyOnset: 57-68-1170Chhhkurizysh (10 sources)Call office Wednesday to be seen possibly on Wednesday.Urinary tract infections (18 sources)Acute urinary tract infection; Translations: [Urinary tract infection, site not specified]93-70-2412Xrliqsdt Past or Other Problems Problem ClassificationProblemDateDocumented DateEpisodic/ChronicAbdominal pain (1 source)Right upper quadrant pain; Translations: [Right upper quadrant pain] Onset: 48-90-3146ZivvlqhzBivlixrb of urinary tract (20 sources)Kidney stone; Translations: [Calculus of kidney]Onset: 02-11-2023 24-39-4247GxwtvrpqBsqqukon mellitus without complication (20 sources)Prediabetes; Translations: [Prediabetes]Onset: EpisodicImmunizations and screening for infectious disease (20 sources)Anti-nuclear factor positive; Translations: [Other specified abnormal immunological findings in serum]Onset: 004114-44-4338Yrlxiiqf Nutritional deficiencies (20 sources)Iron deficiency; Translations: [Iron deficiency]Onset: 10-20-2023 76-57-4687LibeeznaZhdic diseases of kidney and ureters (20 sources)Hydronephrosis with renal and ureteral calculous obstruction; Translations: [Calculus of ureter]Onset: 772321-95-7846PowfaoziWzpvc gastrointestinal disorders (1 source)Altered bowel function; Translations: [Change in bowel habit]Episodic Other gastrointestinal disorders (1 source)Diarrhea; Translations: [Diarrhea, unspecified]EpisodicOther upper respiratory infections (9 sources)Pharyngitis; Translations: [Acute pharyngitis, unspecified]Onset: 407835-73-7975BmpcqcteCxiclyur codes; unclassified (20 sources)Insomnia; Translations: [Insomnia, unspecified]Onset: 03-19-2020 79-70-0544WlgxvqnpKkgjmrtldykc (1 source)CONTACT W/AND (SUSP) EXPOS COVID-19; Translations: [CONTACT W/AND (SUSP) EXPOS COVID-19]Onset: 01-05-2022 Results Test NameValueInterpretationReference RangeFacilityBasophils [#/volume] in Blood by Automated countOrdered By: Pippa Lane on 08-03-9840Lfppkikdu (Bld) [#/Vol]0.0 10*3/uLNormal0.0-0.2FAccess Hospital DaytonComment on above:Result Comment: PERFORMED BY: [place] [address] PATHOLOGIST [employer] MICHELLE BENNETT M.D.Performed By: #### CMP, URIC #### [place] [address] USABasophils/100 leukocytes in Blood by Automated count Ordered By: Pippa Lane on 32-15-0718Zbclpxnib/100 WBC (Bld)0.5 %Normal. [facility] HospitalComment on above:Performed By: #### CMP, URIC #### [place] [address] USAComplete Blood Count Auto Diffon 29-56-4855Rwvx Corpuscular HGB Conc34.0 g/oJJkepff10.0-35.0[facility] Physician GroupComment on above:Performed By: #### CMP, URIC #### [place] [address] USANRBC%0.0 /100{WBC}Normal0-0.5[facility] Comment on above:Performed By: #### CMP, URIC #### [place] [address] USAWhite Blood Count8.3 [CFU]/mLNormal3.8-11.6[facility] Physician GroupComment on above:Performed By: #### CMP, URIC #### [place] [address] USAEosinophils [#/volume] in Blood by Automated countOrdered By: Pippa Lane on 98-55-7615Odfosdllquu (Bld) [#/Vol]0.2 10*3/uLNormal 0.0-0.45[facility] HospitalComment on above:Performed By: #### CMP, URIC #### [place] [address] USAEosinophils/100 leukocytes in Blood by Automated count Ordered By: Pippa Lane on 35-49-1065Atimyhwabdk/100 WBC (Bld)2.8 %Normal. [facility] HospitalComment on above:Performed By: #### CMP, URIC #### [place] [address] USAErythrocyte distribution width [Ratio] by Automated count Ordered By: Pippa Lane on 30-77-6078Ymbaodzanmy distribution width (RBC) [Ratio]13.0 %Poplsi83.9-15.3FAccess Hospital DaytonComment on above: Performed By: #### CMP, URIC #### [place] [address] USAErythrocytes [#/volume] in Blood by Automated countOrdered By: Pippa Lane on 83-37-2360YCI (Bld) [#/Vol]4.80 10*6/uLNormal3.60-5.00 [facility] HospitalComment on above:Performed By: #### CMP, URIC #### [place] [address] USAFerritin [Mass/volume] in Serum or PlasmaOrdered By: Pippa Lane on 03-93-3564Gxnagszb [Mass/Vol]104.1 ng/mETscgvw23.0-306.8[facility] The Jewish HospitalComment on above:Result Comment: PERFORMED BY: [place] [address] PATHOLOGIST BATHING SUIT MAKER MICHELLE BENNETT M.D.Performed By: #### CMP, URIC #### [place] [address] USAHematocrit [Volume Fraction] of Blood by Automated count Ordered By: Pippa Lane on 44-66-7925Ziaqexchtj (Bld) [Volume fraction]42.1 % Hakrdc46.0-46.4FAccess Hospital DaytonComment on above:Performed By: #### CMP, URIC #### [facility] [address] [place] [address] USAHemoglobin [Mass/volume] in BloodOrdered By: oliva JaironJoselito Tahminajenny on 14-56-6477Mguvhexvhh (Bld) [Mass/Vol]14.3 g/aQHhmgqv63.8-15.4 [facility] Jewish HospitalComment on above:Performed By: #### CMP, URIC #### [facility] [address] [place] [id number] USAIron [Mass/volume] in Serum or PlasmaOrdered By: oliva JaironJoselito Tahminajenny on 49-07-4656Etij [Mass/Vol]103 ug/vQFjjyra89-027IgrfmdwinMercy Health – The Jewish HospitalComment on above:Performed By: #### CMP, URIC #### [facility] [address] [place] [id number] USAIron and TIBC Profileon 11-13-2024% Iron Lrlnyjfzus68.8 % Gnudfx44-71Udy [facility] Physician GroupComment on above:Performed By: #### CMP, URIC #### [address] [address] USATotal Iron Binding Bggurjkp960 ug/fCKkuutu942-676Tsc [facility] Physician GroupComment on above:Performed By: #### CMP, URIC #### [facility] [address] [place] [address] USALDH Lactate Dehydrogenaseon 58-84-6240FPK Lactate Zysvmtldpbqki198 U/XBhumcz892-457Jwe [facility] Hospital Physician GroupComment on above: Performed By: #### CMP, URIC #### [facility] [address] [place] [address] USALactate dehydrogenase [Enzymatic activity/volume] in Serum or Plasma by Lactate to pyOrdered By: oliva JaironJoselitoTahimnajenny on 26-20-1991MUG Lactate to pyruvate reaction [Catalytic activity/Vol]145 U/M680-630KxxpmmqebMercy Health – The Jewish HospitalLeukocytes [#/volume] corrected for nucleated erythrocytes in Blood by Automated counOrdered By: Pippa Lane on 55-11-8537TSA corrected for nucl RBC Auto (Bld) [#/Vol]8.3 10*3/uL3.8-11.6FAccess Hospital Dayton Leukocytes [#/volume] in Blood by Automated countOrdered By: Pippa Lane on 49-97-5293BHH (Bld) [#/Vol]8.3 10*3/uLNormal3.8-11.6FAccess Hospital DaytonComment on above:Performed By: #### CMP, URIC #### [facility] [address] [place] [address] USALymphocytes [#/volume] in Blood by Automated countOrdered By: Pippa Lane on 36-48-9018Kyfqgsmrjfe (Bld) [#/Vol]2.6 10*3/uLNormal 1.00-4.8[facility] Jewish HospitalComment on above:Performed By: #### CMP, URIC #### [facility] [address] [place], [place] [id number] USALymphocytes/100 leukocytes in Blood by Automated count Ordered By: Pippa Lane on 60-95-2262Ksvxuprlekt/100 WBC (Bld)31.2 %Normal. [facility] – The Jewish HospitalComment on above:Performed By: #### CMP, URIC #### [facility] [address] [place], [place] [id number] [facility] [Entitic mass] by Automated countOrdered By: Pippa Coyle on 30-37-7496UAQ (RBC) [Entitic mass]29.8 xuDaxnxy73.7-34.3FAccess Hospital DaytonComment on above:Performed By: #### CMP, URIC #### [facility] [address] [place] [address] Auto (RBC) [Mass/Vol]Ordered By: Pippa Lane on 38-72-3530SKLH (RBC) [Mass/Vol]34.0 g/dL32.0-35.0[facility] Jewish HospitalMCV [Entitic volume] by Automated countOrdered By: Pippa Lane on 76-50-7682BSH (RBC) [Entitic vol]87.8 sXSioyxn83-005ExxccvstuMercy Health – The Jewish HospitalComment on above:Performed By: #### CMP, URIC #### [facility] [address] [place] [id number] USAMonocytes [#/volume] in Blood by Automated countOrdered By: Pippa Lane on 02-10-4020Vboaxzrba (Bld) [#/Vol]0.7 10*3/uLNormal0.0-0.8 [facility] Jewish HospitalComment on above:Performed By: #### CMP, URIC #### [facility] [address] [place] [id number] USAMonocytes/100 leukocytes in Blood by Automated count Ordered By: Pippa Lane on 87-85-0438Wxtczvkea/100 WBC (Bld)8.0 %Normal. [facility] Jewish HospitalComment on above:Performed By: #### CMP, URIC #### [facility] [address] [place] [id number] USANeutrophils [#/volume] in Blood by Automated countOrdered By: Pippa Lane on 67-66-4022Rvaygiouwsh (Bld) [#/Vol]4.8 10*3/uLNormal 1.8-7.7FAccess Hospital DaytonComment on above:Performed By: #### CMP, URIC #### [facility] [address] [place] [address] USANeutrophils/100 leukocytes in Blood by Automated count Ordered By: Pippa Lane on 23-34-6684Rpuyzypvcir/100 WBC (Bld)57.5 %Normal. [facility] The Jewish HospitalComment on above:Performed By: #### CMP, URIC #### [facility] [address] [place] [id number] USANucleated erythrocytes [Presence] in Blood by Automated countOrdered By: Pippa Lane on 95-70-6055Fdbsfsudk RBC Auto Ql (Bld)0.0 /100{WBC}0-0.5FAccess Hospital DaytonPlatelet mean volume [Entitic volume] in Blood by Automated countOrdered By: Pippa Lane on 11-13-2024 Platelet mean volume (Bld) [Entitic vol]7.5 fLNormal6.3-10.7FAccess Hospital DaytonComment on above:Performed By: #### CMP, URIC #### [facility] [address] [place] [id number] USAPlatelets [#/volume] in Blood by Automated countOrdered By: Pippa Lane on 14-02-8545Cqvlpfawv (Bld) [#/Vol]422 10*3/rMXzmjkp722-446 [facility] Jewish HospitalComment on above:Performed By: #### CMP, URIC #### [facility] [address] [place] [id number] USASerum or plasma iron binding capacity measurement (mass/volume)Ordered By: oliva Lane on 00-28-6349Muqq binding capacity [Mass/Vol]385 ug/vP921-556JhtbildgtSamaritan Hospitalerum or plasma iron saturation measurement (mass fraction)Ordered By: oliva De La OLeonides on 11-13-2024 Iron saturation [Mass fraction]26.8 %20-50[facility] Transferrin [Mass/volume] in Serum or PlasmaOrdered By: oliva Lane on 87-84-9231Jfxerhcuxmv [Mass/Vol]275 mg/mUCtstft172-418MnjpkjeczMercy Health – The Jewish HospitalComment on above:Performed By: #### CMP, URIC #### [facility] [address] [place] [address] USAPatient Letter FTMCon 66-46-2490Ljwpqki Letter FTMCPatient Letter FT October 11, 2024 DANELLE GUIDO [address] [place] [phone] : 2000 Dear Danelle, You missed your scheduled appointment on: October 11, [address] Mirna Aguilera. Please note our appointment slots fill quickly. When you fail to cancel or reschedule an appointment the office is unableto fill the appointment slot that was reserved for you. In the future, we ask that you call 24 hours in advance to cancel your appointment. Our current reminder system gives you the opportunity to cancel by responding to our reminder text, phone call or email. You can also call the office to reschedule during normal business hours or use our on-line scheduling portal at your convenience. Our goal is to provide convenient and quality care to all of our patients. We appreciate your consideration regarding any future cancellations. Sincerely, [facility] [address] [facility] [place] [address] [place] [address] MyoeduIvzobjHarrison Community HospitalCult,Urineon 10-04-2024 Cult,UrineSpecimen Description .CLEAN CATCH URINE Special Requests Site: Urine Culture NO SIGNIFICANT GROWTH Report Status FINAL 10/04/2024NoBrecksville VA / Crille HospitalComment on above: Performed By: #### URC #### [facility] [address] [place] [address] Mines Safety Engineer: Veto Archer MD [facility] [address] [place] [address] Mines Safety Engineer: Ez Clark MDFLUORO FOR SURGICAL PROCEDURESon 68-31-9790HQAUHH FOR SURGICAL PROCEDURESRADRPT Radiology exam is complete. No Radiologist dictation. Please follow up with ordering provider. 4.1mGy 15s Final resultNormalKettering Health Main CampusGlucose Nova Meteron 34-31-1676ZCHWO 86NormalKettering Health Main CampusComment on above:Order Comment: Ordered by an unspecified providerPerformed By: #### GLUN #### [place] [address] Ph. [phone] Urineon 82-62-6823LJTRYKdwjrmvaLbuujdRXVMEVWQDteuekr Memorial HospitalComapex medical center on above:Result Comment: Negative result = No presence of detectable hCG\X0D0A\Positive result = hCG concentration detected greater than or equal to 25 mIU/mL\X0D0A\X0D0A\Positive results should be evaluatedwith respect to the clinical situation. False positive results have been known to occur in the presence of heterophile antibodies or non-specific proteins. If a qualitative interpretation is inconsistent with the clinical evidence, results should be confirmed with quantitative hCG testing.Performed By: #### UPREG #### [place] [address] Ph. [phone] ANALYSISon 83-59-8475Ekwslmhdp 1SEE [facility] HospitalComapex medical center on above:Order Comment: [facility] performed at: [facility], [address] [place] [address], , [employer]: Reece Huizar MD PhD\X0D0A\[facility] Collection Date/Time: \X0D0A\[facility] Results Received Date/Time: [id number]\X0D0A\[facility] Reported Date/Time: Ureteral stone with hydronephrosis [N13.2] LYLA (acute kidney injury) [N17.9] Pre-op diagnosis:Result Comment: Calcium Oxalate Dihydrate (Weddellite) 60%\X0D0A\Calcium Oxalate Monohydrate (Whewellite) 20%\X0D0A\Carbonate Apatite (Dahllite) 20%Performed By: #### [id number] #### [place] [address] Ph. [phone] source Nom (Unsp spec)[facility] CenterComapex medical center on above:Order Comment: [facility] performed at: [facility], [address] [place] [address], , [employer]: Reece Huizar MD PhD\X0D0A\[facility] Collection Date/Time: [id number]\X0D0A\[facility] Results Received Date/Time: [id number]\X0D0A\[facility] Reported Date/Time: [id number] Ureteral stone with hydronephrosis [N13.2] LYLA (acute kidney injury) [N17.9] Pre-op diagnosis:Performed By: #### [id number] #### [place] [address] [place] [address] Ph. [phone] Metabolic Profon 82-14-0633Ztlif gap [Moles/Vol]15 mmol/L Normal9-16Madison HealthComment on above:Performed By: #### BMP #### [address] [place], [place] [address] Mines Safety Engineer: Ez Clark MDBUN/CRE Gjhxc01Hztkvh6-26Ubshx [facility] Comment on above:Performed By: #### BMP #### [address] [place], [place] [address] Mines Safety Engineer: ANDERSON Jamesalcium [Mass/Vol]9.0 mg/dLNormal8.6-10.4Madison HealthComment on above:Performed By: #### BMP #### [address] [place], [place] [address] Mines Safety Engineer: ANDERSON Jameshloride [Moles/Vol]103 mmol/MZxcyhe50-833BfgyqMadison HealthComment on above:Performed By: #### BMP #### [address] [place] [address] Mines Safety Engineer: Ez Clark MDCO2 [Moles/Vol]20 mmol/JTlbpax36-19LceyhMadison HealthComment on above:Performed By: #### BMP #### [address] [place], [place] [address] Mines Safety Engineer: ANDERSON Jamesreatinine [Mass/Vol]1.5 mg/dLHigh0.50-0.90Madison HealthComment on above:Performed By: #### BMP #### [address] [place] [address] Mines Safety Engineer: Ez Clark MDGFR/1.73 sq M.predicted among non-blacks MDRD (S/P/Bld) [Vol rate/Area]51 mL/min/{1.73_m2}Low>60Madison HealthComment on above:Result Comment: These results are not intended for use in patients <18 years of age. eGFR results are calculated without a race factor using the 2020 CKD-EPI equation. Careful clinical correlation is recommended, particularly when comparing to results calculated using previous equations. The CKD-EPI equation is less accurate in patients with extremes of muscle mass, extra-renal metabolism of creatine, excessive creatine ingestion, or following therapy that affects renal tubular secretion.Performed By: #### BMP #### [address] [place] [address] Mines Safety Engineer: Ez Clark MDGlucose [Mass/Vol]71 mg/nXQpy38-36QnqzdSelect Medical OhioHealth Rehabilitation Hospital - DublinComment on above:Performed By: #### BMP #### [address] [place] [address] Mines Safety Engineer: YANA Jamesotassium [Moles/Vol]4.2 mmol/LNormal3.7-5.3MSelect Medical OhioHealth Rehabilitation Hospital - DublinComment on above:Performed By: #### BMP #### [address] [place] [address] Mines Safety Engineer: Ez Clark MDSodium [Moles/Vol]138 mmol/JOwqgrc647-900GcivmMadison HealthComment on above:Performed By: #### BMP #### [address] [place] [address] Mines Safety Engineer: Ez Clark MDUrea nitrogen [Mass/Vol]15 mg/dLNormal6-20Madison HealthComment on above:Performed By: #### BMP #### [address] [place] [address] Mines Safety Engineer: Ez Clark MDUrine Cultureon 69-18-1987Ziarbnxl identified Cx Nom (U)75,000 colonies/ml mixed bacterial skin contaminants 2 Days PERFORMED BY: [place] [address] PATHOLOGIST BATHING SUIT MAKER MICHELLE BENNETT M.D.NormalThe Sloop Memorial Hospital Physician GroupComment on above: Performed By: #### CMP, URIC #### [place] [address] USAUrine cultureOrdered By: Laila Schilling on 10-02-2024 Bacteria identified Cx Nom (U)2 DaysMercy Health – The Jewish HospitalBasophils [#/volume] in Blood by Automated countOrdered By: MINNA Hernandez on 03-57-6623Hvfmosgtz (Bld) [#/Vol]0.1 10*3/uLNormal0.0-0.2FAccess Hospital DaytonComment on above:Result Comment: PERFORMED BY: [place] [address] PATHOLOGIST BATHING SUIT MAKER MICHELLE BENNETT M.D.Performed By: #### CMP, URIC #### [place] [id number] USABasophils/100 leukocytes in Blood by Automated count Ordered By: MINNA Hernandez on 69-32-4067Ymiohmuuj/100 WBC (Bld)0.6 %Normal .[facility] – The Jewish HospitalComment on above:Performed By: #### CMP, URIC #### [place] [address] USACBC W Auto Differential panel (Bld)on 30-00-2623Hvieqiqnf (Bld) [#/Vol]0.1 10*3/uL0.0 - 0.2 10*3/uLNOMS HealthcareBasophils/100 WBC Manual cnt (Syn fld)0.6 %.NOMS HealthcareEosinophils (Bld) [#/Vol]0.2 10*3/uL0.0 - 0.45 10*3/uLNOND HealthcareEosinophils/100 WBC Manual cnt (Syn fld)1.7 %.Carondelet HealthErythrocyte distribution width (RBC) [Ratio]13.7 %11.9 - 15.3 %C[facility]delet HealthHematocrit (Bld) [Volume fraction]33 %Low34.0 - 46.4 %[facility] Hemoglobin (Bld) [Mass/Vol]11.1 g/dLLow11.8 - 15.4 g/dLCarondelet Health Interpretation and review of laboratory resultsAbnormSelect Specialty Hospital - Danville Lymphocytes (Bld) [#/Vol]2.6 10*3/uL1.00 - 4.8 10*3/uLNOND Healthcare Lymphocytes/100 WBC Manual cnt (Syn fld)18.2 %.Carondelet HealthMCH (RBC) [Entitic mass]30.2 pg24.7 - 34.[address]Mosaic Life Care [address] JosephHC (RBC) [Mass/Vol]33.5 g/dL32.0 - 35.0 g/dLMosaic Life Care at St. JosephV (RBC) [Entitic vol]90.3 fL80 - 100 fLCarondelet Health Monocytes (Bld) [#/Vol]0.8 10*3/uL0.0 - 0.8 10*3/uLCarondelet Health Monocytes+Macrophages/100 WBC Manual cnt (Syn fld)5.7 %.[facility] Neutrophils (Bld) [#/Vol]10.7 10*3/uLHigh1.8 - 7.7 10*3/uLNOCass Medical Center Neutrophils/100 WBC Manual cnt (Syn fld)73.8 %.Carondelet HealthNRBC0 /100{WBC}0 - 0.5 /100{WBC}Carondelet HealthPlatelet mean volume (Bld) [Entitic vol]7.8 fL6.3 - 10.7 fLCarondelet HealthPlatelets (Bld) [#/Vol]266 10*3/uL150 - 450 10*3/uLNOCass Medical CenterRBC LM.HPF (Urine sed) [#/Area]3.66 10*6/uL3.60 - 5.00 10*6/uLNOND HealthcareWBC (Bld) [#/Vol]14.4 10*3/uLHigh3.8 - 11.6 10*3/uLNOMS HealthcareWBC LM.HPF (Urine sed) [#/Area]14.4 [CFU]/mLHigh3.8 - 11.6 [CFU]/mLNOMS Healthcare NOMS HealthcareComplete Blood Count Auto Diffon 62-82-0575Qyne Corpuscular HGB Conc33.5 g/zLAudrxv24.0-35.0The [facility] Hospital Physician GroupComment on above: Performed By: #### CMP, URIC #### [place] [address] USANRBC%0.0 /100{WBC}Normal0-0.5The [facility] Comment on above:Performed By: #### CMP, URIC #### [place] [address] USAWhite Blood Count14.4 [CFU]/mLHigh3.8-11.6The [facility] Hospital Physician GroupComment on above:Performed By: #### CMP, URIC #### [place] [address] USAEosinophils [#/volume] in Blood by Automated countOrdered By: MINNA Hernandez on 08-01-7207Sqiaqnlfxqh (Bld) [#/Vol]0.2 10*3/uLNormal 0.0-0.45Mer[facility] Jewish HospitalComment on above:Performed By: #### CMP, URIC #### [place] [address] USAEosinophils/100 leukocytes in Blood by Automated count Ordered By: MINNA Hernandez on 96-67-1751Zwebobxvvaq/100 WBC (Bld)1.7 % Normal.[facility] – The Jewish HospitalComment on above:Performed By: #### CMP, URIC #### [place] [address] USAErythrocyte distribution width [Ratio] by Automated count Ordered By: MINNA Hernandez on 92-39-8413Ynfgiwsadgj distribution width (RBC) [Ratio]13.7 %Lhqpus55.9-15.3Firelands Regional Medical CenterComment on above:Performed By: #### CMP, URIC #### [place] [address] USAErythrocytes [#/volume] in Blood by Automated countOrdered By: MINNA Hernandez on 66-71-7285YPY (Bld) [#/Vol]3.66 10*6/uLNormal 3.60-5.00Mer[facility] The Jewish HospitalComment on above:Performed By: #### CMP, URIC #### [place] [address] USAHematocrit [Volume Fraction] of Blood by Automated count Ordered By: MINNA Hernandez on 73-41-4271Ledkdkgiiv (Bld) [Volume fraction] 33.0 %Low34.0-46.4FAccess Hospital DaytonComment on above:Performed By: #### CMP, URIC #### [place] [address] USAHemoglobin [Mass/volume] in BloodOrdered By: MINNA Hernandez on 41-08-0138Bqpnjptmos (Bld) [Mass/Vol]11.1 g/dLLow11.8-15.4 [facility] Jewish HospitalComment on above:Performed By: #### CMP, URIC #### [place] [address] USALeukocytes [#/volume] corrected for nucleated erythrocytes in Blood by Automated counOrdered By: MINNA Hernandez on 83-06-3907MOT corrected for nucl RBC Auto (Bld) [#/Vol]14.4 10*3/uLHigh3.8-11.6FAccess Hospital DaytonLeukocytes [#/volume] in Blood by Automated countOrdered By: MINNA Hernandez on 27-57-1820BAG (Bld) [#/Vol]14.4 10*3/uLHigh3.8-11.6 [facility] Jewish HospitalComment on above:Performed By: #### CMP, URIC #### [place] [address] USALymphocytes [#/volume] in Blood by Automated countOrdered By: MINNA Hernandez on 58-25-3158Rmurnnpqdqr (Bld) [#/Vol]2.6 10*3/uLNormal 1.00-4.8[facility] Jewish HospitalComment on above:Performed By: #### CMP, URIC #### [facility] [address] [place] [address] USALymphocytes/100 leukocytes in Blood by Automated count Ordered By: MINNA Hernandez on 41-07-5745Fqwpmpagfjr/100 WBC (Bld)18.2 % Normal.[facility] – The Jewish HospitalComment on above:Performed By: #### CMP, URIC #### [facility] [address] [Entitic mass] by Automated countOrdered By: MINNA Hernandez on 49-68-1975UIZ (RBC) [Entitic mass]30.2 jyPwgdgq44.7-34.3 [facility] HospitalComment on above:Performed By: #### CMP, URIC #### [facility] [address] Auto (RBC) [Mass/Vol]Ordered By: MINNA Hernandez on 33-87-6629DXAF (RBC) [Mass/Vol]33.5 g/dL32.0-35.0Select [facility] Hospital, Edwin ShawV [Entitic volume] by Automated countOrdered By: MINNA Hernandez on 86-64-0287UKW (RBC) [Entitic vol]90.3 kJEmbtpr00-878PjhtwvdrsMercy Health – The Jewish HospitalComment on above:Performed By: #### CMP, URIC #### [place] [address] USAMonocytes [#/volume] in Blood by Automated countOrdered By: MINNA Hernandez on 49-61-3089Hdcvbisrf (Bld) [#/Vol]0.8 10*3/uLNormal 0.0-0.8Mer[facility] The Jewish HospitalComment on above:Performed By: #### CMP, URIC #### [place] [address] USAMonocytes/100 leukocytes in Blood by Automated count Ordered By: MINNA Hernandez on 46-35-9265Fgyygmpiq/100 WBC (Bld)5.7 %Normal .[facility] The Jewish HospitalComment on above:Performed By: #### CMP, URIC #### [place] [address] USANeutrophils [#/volume] in Blood by Automated countOrdered By: MINNA Hernandez on 91-54-0867Vvdyjbyxjws (Bld) [#/Vol]10.7 10*3/uLHigh 1.8-7.7FAccess Hospital DaytonComment on above:Performed By: #### CMP, URIC #### [place] [address] USANeutrophils/100 leukocytes in Blood by Automated count Ordered By: MINNA Hernandez on 10-20-0220Barvhagrwhi/100 WBC (Bld)73.8 % Normal.[facility] The Jewish HospitalComment on above:Performed By: #### CMP, URIC #### [place] [address] USANucleated erythrocytes [Presence] in Blood by Automated countOrdered By: MINNA Hernandez on 06-81-6908Qjirjfdtu RBC Auto Ql (Bld) 0.0 /100{WBC}0-0.5FAccess Hospital DaytonPlatelet mean volume [Entitic volume] in Blood by Automated countOrdered By: MINNA Hernandez on 31-61-9390Jogijaaf mean volume (Bld) [Entitic vol]7.8 fLNormal6.3-10.7FAccess Hospital DaytonComment on above:Performed By: #### CMP, URIC #### [place] [address] USAPlatelets [#/volume] in Blood by Automated countOrdered By: MINNA Hernandez on 99-73-3208Buzmzxcsv (Bld) [#/Vol]266 10*3/uLNormal 150-450Mer[facility] Health – The Jewish HospitalComment on above:Performed By: #### CMP, URIC #### [facility] [address] [place] [address] USARPR W/RFX TO QUANT & TP ABS ([facility] [place])on 72-85-5895ZYL, RFX QUANT RPRNon-ReactiveNon ReactiveNOMS HealthcareComment on above:Performed at: CB - [facility] [address] [id number] Mines Safety Engineer: Harsha Villanueva PhD, Phone: [phone] [facility] W Auto Differential panel (Bld)on 37-03-8165Ngdrubrqo (Bld) [#/Vol]0.1 10*3/uL0.0 - 0.2 10*3/uLNOMS HealthcareBasophils/100 WBC Manual cnt (Syn fld)0.3 %.[facility]delet HealthEosinophils (Bld) [#/Vol]0 10*3/uL0.0 - 0.45 10*3/uLNOMS HealthcareEosinophils/100 WBC Manual cnt (Syn fld)0.1 %.[facility]let HealthErythrocyte distribution width (RBC) [Ratio]13.4 %11.9 - 15.3 %[facility]let HealthHematocrit (Bld) [Volume fraction]36.2 %34.0 - 46.4 %[facility] Hemoglobin (Bld) [Mass/Vol]12.2 g/dL11.8 - 15.4 g/dLCarondelet Health Interpretation and review of laboratory resultsAbnormSelect Specialty Hospital - Danville Lymphocytes (Bld) [#/Vol]2.9 10*3/uL1.00 - 4.8 10*3/uLNOND Healthcare Lymphocytes/100 WBC Manual cnt (Syn fld)15.1 %.[facility]let HealthMCH (RBC) [Entitic mass]30.4 pg24.7 - 34.3 pgCarondelet HealthMCHC (RBC) [Mass/Vol]33.6 g/dL32.0 - 35.0 g/dLCarondelet HealthMCV (RBC) [Entitic vol]90.6 fL80 - 100 fLCarondelet Health Monocytes (Bld) [#/Vol]1 10*3/uLHigh0.0 - 0.8 10*3/uLNOMS Healthcare Monocytes+Macrophages/100 WBC Manual cnt (Syn fld)5.3 %.[facility] Neutrophils (Bld) [#/Vol]15 10*3/uLHigh1.8 - 7.7 10*3/uLNOMS Healthcare Neutrophils/100 WBC Manual cnt (Syn fld)79.2 %.NOMS HealthcareNRBC0.1 /100{WBC}0 - 0.5 /100{WBC}NOMS HealthcarePlatelet mean volume (Bld) [Entitic vol]8.5 fL6.3 - 10.7 fLNOMS HealthcarePlatelets (Bld) [#/Vol]310 10*3/uL150 - 450 10*3/uLNOMS HealthcareRBC LM.HPF (Urine sed) [#/Area]4 10*6/uL3.60 - 5.00 10*6/uLNOMS HealthcareWBC (Bld) [#/Vol]18.9 10*3/uLHigh3.8 - 11.6 10*3/uLNOMS HealthcareWBC LM.HPF (Urine sed) [#/Area]18.9 [CFU]/mLHigh3.8 - 11.6 [CFU]/mLNOMS Healthcare Comment Draw at 630 [facility] HospitalComplete Blood Count Auto Diffon 40-39-8365Ohhwmjflf (Bld) [#/Vol]0.1 10*3/uLNormal0.0-0.2The [facility] Hospital Physician GroupComment on above:Order Comment: Comment Draw at 630 amResult Comment: PERFORMED BY: [place] [address] PATHOLOGIST BATHING SUIT MAKER MICHELLE BENNETT M.D.Performed By: #### CMP, URIC #### [facility] [address] [place] [address] USABasophils/100 WBC (Bld)0.3 %Normal.[facility] Hospital Physician GroupComment on above:Order Comment: Comment Draw at 630 amPerformed By: #### CMP, URIC #### [facility] [address] [place] [id number] USAEosinophils (Bld) [#/Vol]0.0 10*3/uLNormal0.0-0.45The [facility] Hospital Physician GroupComment on above:Order Comment: Comment Draw at 630 am Performed By: #### CMP, URIC #### [place] [address] USAEosinophils/100 WBC (Bld)0.1 %Normal.[facility] Hospital Physician GroupComment on above:Order Comment: Comment Draw at 630 amPerformed By: #### CMP, URIC #### [place] [address] USAErythrocyte distribution width (RBC) [Ratio]13.4 %Normal 11.9-15.3[facility] Physician GroupComment on above:Order Comment: Comment Draw at 630 amPerformed By: #### CMP, URIC #### [place] [address] USAHematocrit (Bld) [Volume fraction]36.2 %Aprhlm31.0-46.4[facility] Physician GroupComment on above:Order Comment: Comment Draw at 630 am Performed By: #### CMP, URIC #### [place] [address] USAHemoglobin (Bld) [Mass/Vol]12.2 g/mWYdisaf35.8-15.4[facility] Physician GroupComment on above:Order Comment: Comment Draw at 630 am Performed By: #### CMP, URIC #### [place] [address] USALymphocytes (Bld) [#/Vol]2.9 10*3/uLNormal1.00-4.8[facility] Physician GroupComment on above:Order Comment: Comment Draw at 630 am Performed By: #### CMP, URIC #### [place] [address] USALymphocytes/100 WBC (Bld)15.1 %Normal.[facility] Physician GroupComment on above:Order Comment: Comment Draw at 630 amPerformed By: #### CMP, URIC #### [address] [address] USAMCH (RBC) [Entitic mass]30.4 dyEifgov78.7-34.3[facility] Physician GroupComment on above:Order Comment: Comment Draw at 630 am Performed By: #### CMP, URIC #### [address] (RBC) [Entitic vol]90.6 kXXuzcqi45-480Kpm [facility] Physician GroupComment on above:Order Comment: Comment Draw at 630 amPerformed By: #### CMP, URIC #### [facility] [address] [place] [address] USAMean Corpuscular HGB Conc33.6 g/xRPobgzz09.0-35.0The [facility] Physician GroupComment on above:Order Comment: Comment Draw at 630 am Performed By: #### CMP, URIC #### [place] [address] USAMonocytes (Bld) [#/Vol]1.0 10*3/uLHigh0.0-0.8[facility] Physician GroupComment on above:Order Comment: Comment Draw at 630 amPerformed By: #### CMP, URIC #### [place] [address] USAMonocytes/100 WBC (Bld)5.3 %Normal.[facility] Physician GroupComment on above:Order Comment: Comment Draw at 630 amPerformed By: #### CMP, URIC #### [place] [address] USANeutrophils (Bld) [#/Vol]15.0 10*3/uLHigh1.8-7.7[facility] Physician GroupComment on above:Order Comment: Comment Draw at 630 am Performed By: #### CMP, URIC #### [place] [address] USANeutrophils/100 WBC (Bld)79.2 %Normal.[facility] Physician GroupComment on above:Order Comment: Comment Draw at 630 amPerformed By: #### CMP, URIC #### [address] [place] [address] USANRBC%0.1 /100{WBC}Normal0-0.5[facility] Comment on above:Order Comment: Comment Draw at 630 amPerformed By: #### CMP, URIC #### [facility] [address] [place] [address] USAPlatelet mean volume (Bld) [Entitic vol]8.5 fLNormal 6.3-10.7The [facility] Physician GroupComment on above:Order Comment: Comment Draw at 630 amPerformed By: #### CMP, URIC #### [facility] [address] [place] [address] USAPlatelets (Bld) [#/Vol]310 10*3/rFRlouxw640-983Xvu [facility] Physician GroupComment on above:Order Comment: Comment Draw at 630 am Performed By: #### CMP, URIC #### [place] [address] USARBC (Bld) [#/Vol]4.00 10*6/uLNormal3.60-5.00The [facility] Physician GroupComment on above:Order Comment: Comment Draw at 630 amPerformed By: #### CMP, URIC #### [facility] [address] [place] [address] USAWBC (Bld) [#/Vol]18.9 10*3/uLHigh3.8-11.6The [facility] Physician GroupComment on above:Order Comment: Comment Draw at 630 amPerformed By: #### CMP, URIC #### [place] [address] USAWhite Blood Count18.9 [CFU]/mLHigh3.8-11.6The [facility] Physician GroupComment on above:Order Comment: Comment Draw at 630 amPerformed By: #### CMP, URIC #### [place] [address] USAOB URINE DRUG SCREEN (NO THC)on 95-58-1891ABAYBBBHXKM SCREEN,URINENegativeNegativeNOMS HealthcareBARBITURATE SCREEN,URINENegative NegativeNOMS HealthcareBENZODIAZEPINES SCREEN,URINENegativeNegativeNOMS HealthcareCOCAINE SCREEN,URINENegativeNegativeNOMS HealthcareOPIATE SCREEN,URINE NegativeNegativeNOMS HealthcarePHENCYCLIDINE SCREEN, URINENegativeNegativeNOMS HealthcareComment on above:These are unconfirmed results and should not be used for legal purposes. Drug Cut-Off Concentration: AMPH 1000 ng/mL SHERICE 200 ng/mL ANA 200 ng/mL COCM 300 ng/mL OP 300 ng/mL PCP 25 ng/mL Comment s/s of acute impairmentFORBES HOSPITAL HealthcareABO/RH Typeon 09-08-2024 ABO and Rh group Nom (Bld)Blood group A Rh(D) positiveNoCritical access hospital Physician GroupComment on above:Result Comment: PERFORMED BY: [place] [address] PATHOLOGIST [employer] MICHELLE BENNETT M.D.Amphetamine Screen Ql (U)Ordered By: MINNA Hernandez on 73-14-1111Qdbkqfahgzer Ql (U)NegativeNegParkview HealthAppearance of UrineOrdered By: MINNA Hernandez on 09-08-2024 Appearance (U)CloudyCritically abnormalCleMarion Hospital Comment on above:Order Comment: Comment c/o urinary symptoms or increased blood pressure Name Collection Type:: Clean-Voided MidstreamPerformed By: #### RPR W RFX #### [facility] , #### CBC #### [facility] [address] [place] [address] USABacteria [Presence] in Urine by AutomatedOrdered By: MARY Hernandez on 86-71-4445Afodfdhf Auto Ql (U)Rare [HPF]None SeenMercy Health – The Jewish HospitalBarbiturates [Presence] in Urine by Screen methodOrdered By: MINNA Hernandez on 28-83-3428Yezyupzrahlu Screen Ql (U)NegativeNegative [facility] HospitalBenzodiazepines Screen Ql (U)Ordered By: MARY Hernandez on 02-73-8840Zkpktyociquytob Ql (U)NegativeNegParkview HealthBenzoylecgonine [Presence] in Urine by Screen method Ordered By: MINNA Hernandez on 83-72-6957Aqwuwynbpfobntb Screen Ql (U) NegativeNegativeMercy Health – The Jewish HospitalBilirubin Test strip Ql (U) Ordered By: MINNA Hernandez on 42-75-1390Yttyswbuz Ql (U)NegativeNegative [facility] HospitalCBC W Auto Differential panel (Bld)on 76-39-4026Asdzrunfg (Bld) [#/Vol]0 10*3/uL0.0 - 0.2 10*3/uLNOMS Healthcare Basophils/100 WBC Manual cnt (Syn fld)0.2 %.[facility] HealthEosinophils (Bld) [#/Vol]0 10*3/uL0.0 - 0.45 10*3/uLNOMS HealthcareEosinophils/100 WBC Manual cnt (Syn fld)0.2 %.[facility] HealthErythrocyte distribution width (RBC) [Ratio]13.5 % 11.9 - 15.3 %[facility] HealthHematocrit (Bld) [Volume fraction]42.5 %34.0 - 46.4 %[facility] HealthHemoglobin (Bld) [Mass/Vol]14.2 g/dL11.8 - 15.4 g/dLCarondelet HealthInterpretation and review of laboratory resultsAbnormalCarondelet Health Lymphocytes (Bld) [#/Vol]2.3 10*3/uL1.00 - 4.8 10*3/uLNOMS Healthcare Lymphocytes/100 WBC Manual cnt (Syn fld)13.5 %.[facility] JosephH (RBC) [Entitic mass]30.1 pg24.7 - 34.[address] JosephHC (RBC) [Mass/Vol]33.5 g/dL32.0 - 35.0 g/dLMosaic Life Care at St. JosephV (RBC) [Entitic vol]89.8 fL80 - 100 fLCarondelet Health Monocytes (Bld) [#/Vol]1.3 10*3/uLHigh0.0 - 0.8 10*3/uLNOCass Medical Center Monocytes+Macrophages/100 WBC Manual cnt (Syn fld)7.6 %.[facility] Neutrophils (Bld) [#/Vol]13.6 10*3/uLHigh1.8 - 7.7 10*3/uLNOMS Healthcare Neutrophils/100 WBC Manual cnt (Syn fld)78.5 %.NOMS HealthcareNRBC0 /100{WBC}0 - 0.5 /100{WBC}NOMS HealthcarePlatelet mean volume (Bld) [Entitic vol]8.2 fL6.3 - 10.7 fLNOND HealthcarePlatelets (Bld) [#/Vol]333 10*3/uL150 - 450 10*3/uLNOMS HealthcareRBC LM.HPF (Urine sed) [#/Area]4.73 10*6/uL3.60 - 5.00 10*6/uLNOMS HealthcareWBC (Bld) [#/Vol]17.3 10*3/uLHigh3.8 - 11.6 10*3/uLNOMS HealthcareWBC LM.HPF (Urine sed) [#/Area]17.3 [CFU]/mLHigh3.8 - 11.6 [CFU]/mLNAMG SPECIALTY [facility] Healthcare [facility] HealthcareCalcium oxalate crystals [Presence] in Urine by Computer assisted methodOrdered By: MINNA Hernandez on 29-81-2161Evtpqxh oxalate crystals Computer assisted Ql (U)2+ [HPF][facility] Jewish HospitalColor of Urine by AutoOrdered By: MINNA Hernandez on 54-89-6799Lbqzo (U)YellowNormalYellow [facility] Jewish HospitalComment on above:Order Comment: Comment c/o urinary symptoms or increased blood pressure Name Collection Type:: Clean-Voided MidstreamPerformed By: #### RPR W RFX #### [facility] , #### CBC #### [place] [address] USAComplete Blood Count Auto Diffon 53-57-9018Lyumkhdoo (Bld) [#/Vol]0.0 10*3/uLNormal0.0-0.2The [facility] Physician GroupComment on above: Result Comment: PERFORMED BY: [place] [address] PATHOLOGIST [employer] MICHELLE S SABRINA M.D.Performed By: #### RPR W RFX #### [facility] , #### CBC #### [place] [address] USABasophils/100 WBC (Bld)0.2 %Normal.[facility] Physician GroupComment on above:Performed By: #### RPR W RFX #### [facility] , #### CBC #### [place] [address] USAEosinophils (Bld) [#/Vol]0.0 10*3/uLNormal0.0-0.45The [facility] Physician GroupComment on above:Performed By: #### RPR W RFX #### [facility] , #### CBC #### [place] [address] USAEosinophils/100 WBC (Bld)0.2 %Normal.[facility] Physician GroupComment on above:Performed By: #### RPR W RFX #### [facility] , #### CBC #### [place] [address] USAErythrocyte distribution width (RBC) [Ratio]13.5 %Normal 11.9-15.3The [facility] Physician GroupComment on above:Performed By: #### RPR W RFX #### [facility] , #### CBC #### [place] [address] USAHematocrit (Bld) [Volume fraction]42.5 %Imaivs36.0-46.4The [facility] Physician GroupComment on above:Performed By: #### RPR W RFX #### [facility] , #### CBC #### [facility] [address] [place] [address] USAHemoglobin (Bld) [Mass/Vol]14.2 g/lDEsjslj43.8-15.4The [facility] Physician GroupComment on above:Performed By: #### RPR W RFX #### [facility] , #### CBC #### [facility] [address] [place] [address] USALymphocytes (Bld) [#/Vol]2.3 10*3/uLNormal1.00-4.8The [facility] Physician GroupComment on above:Performed By: #### RPR W RFX #### [facility] , #### CBC #### [facility] [address] [place] [address] USALymphocytes/100 WBC (Bld)13.5 %Normal.[facility] Physician GroupComment on above:Performed By: #### RPR W RFX #### [facility] , #### CBC #### [facility] [address] [place] [address] USAMCH (RBC) [Entitic mass]30.1 vrCstuaq80.7-34.3The [facility] Physician GroupComment on above:Performed By: #### RPR W RFX #### [facility] , #### CBC #### [facility] [address] [place] [address] USAMCV (RBC) [Entitic vol]89.8 jLEhgzzs05-542Dbo [facility] Physician GroupComment on above:Performed By: #### RPR W RFX #### [facility] , #### CBC #### [facility] [address] [place] [address] USAMean Corpuscular HGB Conc33.5 g/yUMsavdp08.0-35.0The [facility] Physician GroupComment on above:Performed By: #### RPR W RFX #### [facility] , #### CBC #### [facility] [address] [place] [address] USAMonocytes (Bld) [#/Vol]1.3 10*3/uLHigh0.0-0.8The [facility] Physician GroupComment on above:Performed By: #### RPR W RFX #### [facility] , #### CBC #### [facility] [address] [place] [address] USAMonocytes/100 WBC (Bld)7.6 %Normal.[facility] Physician GroupComment on above:Performed By: #### RPR W RFX #### [facility] , #### CBC #### [facility] [address] [place] [address] USANeutrophils (Bld) [#/Vol]13.6 10*3/uLHigh1.8-7.7The [facility] Physician GroupComment on above:Performed By: #### RPR W RFX #### [facility] , #### CBC #### [facility] [address] [place] [address] USANeutrophils/100 WBC (Bld)78.5 %Normal.[facility] Physician GroupComment on above:Performed By: #### RPR W RFX #### [facility] , #### CBC #### [facility] [address] [place] [address] USANRBC%0.0 /100{WBC}Normal0-0.5[facility] Comment on above:Performed By: #### RPR W RFX #### [facility] , #### CBC #### [facility] [address] [place] [address] USAPlatelet mean volume (Bld) [Entitic vol]8.2 fLNormal 6.3-10.7The [facility] Physician GroupComment on above:Performed By: #### RPR W RFX #### [facility] , #### CBC #### [facility] [address] [place] [address] USAPlatelets (Bld) [#/Vol]333 10*3/aFRivjhf928-750Ggg [facility] Physician GroupComment on above:Performed By: #### RPR W RFX #### [facility] , #### CBC #### [facility] [address] [place] [address] USARBC (Bld) [#/Vol]4.73 10*6/uLNormal3.60-5.00The [facility] Physician GroupComment on above:Performed By: #### RPR W RFX #### [facility] , #### CBC #### [facility] [address] [place] [address] USAWBC (Bld) [#/Vol]17.3 10*3/uLHigh3.8-11.6The [facility] Physician GroupComment on above:Performed By: #### RPR W RFX #### [facility] , #### CBC #### [facility] [address] [place] [address] USAWhite Blood Count17.3 [CFU]/mLHigh3.8-11.6The [facility] Physician GroupComment on above:Performed By: #### RPR W RFX #### [facility] , #### CBC #### [facility] [address] [place] [address] USADipstick and Microscopicon 17-27-8625Nnbnvyaq,UrineRare NormalNone SeenThe [facility] Physician GroupComment on above:Order Comment: Comment c/o urinary symptoms or increased blood pressure Name Collection Type:: Clean-Voided MidstreamPerformed By: #### RPR W RFX #### [facility] , #### CBC #### [facility] [address] [place] [address] USABilirubin,UrineNegativeNormalNegativeThe [facility] Physician GroupComment on above:Order Comment: Comment c/o urinary symptoms or increased blood pressure Name Collection Type:: Clean-Voided MidstreamPerformed By: #### RPR W RFX #### [facility] , #### CBC #### [place] [address] USACalcium Oxalate Crystals,Urine2+ [HPF]NormalCleveland Clinic Indian River Hospital Physician GroupComment on above:Order Comment: Comment c/o urinary symptoms or increased blood pressure Name Collection Type:: Clean-Voided MidstreamPerformed By: #### RPR W RFX #### [facility] , #### CBC #### [place] [address] USAGlucose Ql (U)NormalNormalNormalThe [facility] Physician GroupComment on above:Order Comment: Comment c/o urinary symptoms or increased blood pressure Name Collection Type:: Clean-Voided MidstreamPerformed By: #### RPR W RFX #### [facility] , #### CBC #### [place] [address] USAHyaline Casts,UrineNoneNormal0-8The [facility] Physician GroupComment on above:Order Comment: Comment c/o urinary symptoms or increased blood pressure Name Collection Type:: Clean-Voided MidstreamPerformed By: #### RPR W RFX #### [facility] , #### CBC #### [place] [address] USAMucus,Urine3+ [LPF]Critically abnormalThe [facility] Physician GroupComment on above:Order Comment: Comment c/o urinary symptoms or increased blood pressure Name Collection Type:: Clean-Voided MidstreamResult Comment: PERFORMED BY: [place] [address] PATHOLOGIST [employer] MICHELLE BENNETT M.D.Performed By: #### RPR W RFX #### [facility] , #### CBC #### [place] [address] USANitrite,UrineNegativeNormalNegativeCleveland Clinic Indian River Hospital Physician GroupComment on above:Order Comment: Comment c/o urinary symptoms or increased blood pressure Name Collection Type:: Clean-Voided MidstreamPerformed By: #### RPR W RFX #### [facility] , #### CBC #### [place] [address] USANon-Squamous Epithelial Cell,U1-2NormalNone SeenThe [facility] Hospital Physician GroupComment on above:Order Comment: Comment c/o urinary symptoms or increased blood pressure Name Collection Type:: Clean-Voided MidstreamPerformed By: #### RPR W RFX #### [facility] , #### CBC #### [place] [address] USAOccult Blood,Urine2+NormalNegativeThe [facility] Physician GroupComment on above:Order Comment: Comment c/o urinary symptoms or increased blood pressure Name Collection Type:: Clean-Voided MidstreamResult Comment: PERFORMED BY: [place] [address] PATHOLOGIST B[employer] MICHELLE BENNETT M.D.Performed By: #### RPR W RFX #### [facility] , #### CBC #### [place] [address] USARBC,Bpngx16-578Idokgg0-5Ezb [facility] Comment on above:Order Comment: Comment c/o urinary symptoms or increased blood pressure Name Collection Type:: Clean-Voided MidstreamPerformed By: #### RPR W RFX #### [facility] , #### CBC #### [facility] [address] [place] [address] USASpecificy Morley,Urine1.254Jhrs9.001-1.030The [facility] Physician GroupComment on above:Order Comment: Comment c/o urinary symptoms or increased blood pressure Name Collection Type:: Clean-Voided MidstreamPerformed By: #### RPR W RFX #### [facility] , #### CBC #### [place] [address] USASquamous Epithelial Cell,Tnzna53-64Chafnt0-1Cqg [facility] Physician GroupComment on above:Order Comment: Comment c/o urinary symptoms or increased blood pressure Name Collection Type:: Clean-Voided MidstreamPerformed By: #### RPR W RFX #### [facility] , #### CBC #### [facility] [address] [place] [address] USAUrobilinogen,UrineNormalNormalNormalThe [facility] Physician GroupComment on above:Order Comment: Comment c/o urinary symptoms or increased blood pressure Name Collection Type:: Clean-Voided MidstreamPerformed By: #### RPR W RFX #### [facility] , #### CBC #### [place] [address] USAWBC,Wxsbb59-504Scrbbq5-3Kob [facility] Comment on above:Order Comment: Comment c/o urinary symptoms or increased blood pressure Name Collection Type:: Clean-Voided MidstreamPerformed By: #### RPR W RFX #### [facility] , #### CBC #### [facility] [address] [place] [address] USAEpithelial cells.non-squamous [#/area] in Urine sediment by Automated countOrdered By: MINNA Hernandez on 16-15-4844Drdkgeyrpz cells.non-squamous Auto (Urine sed) [#/Area]1-2 [HPF]HighDignity Health St. Joseph'S Hospital And Medical Centere Fayette County Memorial HospitalEpithelial cells.squamous [#/area] in Urine sediment by Automated countOrdered By: MINNA Hernandez on 16-25-9420Xcainecyea cells.squamous Auto (Urine sed) [#/Area]20-49 [HPF]High0-2FAccess Hospital DaytonErythrocytes [#/area] in Urine sediment by Automated countOrdered By: MINNA Hernandez on 64-59-6802LPE Auto (Urine sed) [#/Area]50-100 [HPF] High0-4FAccess Hospital DaytonGlucose [Mass/volume] in Urine by Test stripOrdered By: MINNA Hernandez on 96-79-5629Uhyfoag Test strip (U) [Mass/Vol]Normal mg/dLNormalMercy Health – The Jewish HospitalHemoglobin Test strip Ql (U)Ordered By: MINNA Hernandez on 58-39-8093Izsqjcydcb Ql (U)2+ HighNegParkview HealthHyaline casts [#/area] in Urine sediment by Automated countOrdered By: MINNA Hernandez on 04-44-2030Wxiotej casts Auto (Urine sed) [#/Area]None [LPF]0-8[facility] Ketones [Presence] in Urine by Test stripOrdered By: MINNA Hernandez on 94-70-5414Zoptgcq Ql (U)1+NormalNegParkview HealthComment on above:Order Comment: Comment c/o urinary symptoms or increased blood pressure Name Collection Type:: Clean-Voided MidstreamPerformed By: #### RPR W RFX #### [facility] , #### CBC #### [facility] [address] [place] [address] USALeukocyte esterase [Presence] in Urine by Test strip Ordered By: MINNA Hernandez on 68-34-1192Efmltrqtu esterase Test strip Ql (U)4+NormalNegParkview HealthComment on above:Order Comment: Comment c/o urinary symptoms or increased blood pressure Name Collection Type:: Clean-Voided MidstreamPerformed By: #### RPR W RFX #### [facility] , #### CBC #### [facility] [address] [place] [id number] USALeukocytes [#/area] in Urine sediment by Automated count Ordered By: MINNA Hernandez on 36-32-3158ZJK Auto (Urine sed) [#/Area]50- 100 [HPF]High0-4FAccess Hospital DaytonMucus [Presence] in Urine by AutomatedOrdered By: MINNA Hernandez on 43-30-5044Jjjov Auto Ql (U)3+ [LPF] AbnormalMercy Health – The Jewish HospitalNitrite Test strip Ql (U)Ordered By: MINNA Hernandez on 09-58-4158Wtxtgov Ql (U)NegativeNegativeMercy Health – The Jewish HospitalOB Urine Drug Screen (NO THC)on 13-03-8449Diuacsqmtpi Screen,UrineNegativeNormalNegativeThe [facility] Physician GroupComment on above: Order Comment: Comment s/s of acute impairmentPerformed By: #### CMP, URIC #### [facility] [address] [place] [address] USABarbiturate Screen,UrineNegativeNormalNegativeThe [facility] Physician GroupComment on above:Order Comment: Comment s/s of acute impairmentPerformed By: #### CMP, URIC #### [facility] [address] [place] [address] USABenzodiazepines Screen,UrineNegativeNormalNegativeThe [facility] Physician GroupComment on above:Order Comment: Comment s/s of acute impairmentPerformed By: #### CMP, URIC #### [facility] [address] [place] [id number] USACocaine Screen,UrineNegativeNormalNegativeThe [facility] Physician GroupComment on above:Order Comment: Comment s/s of acute impairment Performed By: #### CMP, URIC #### [place] [id number] USAOpiate Screen,UrineNegativeNormalNegativeThe [facility] Physician GroupComment on above:Order Comment: Comment s/s of acute impairment Performed By: #### CMP, URIC #### [place] [id number] USAPhencyclidine Screen, UrineNegativeNormalNegativeThe [facility] Physician GroupComment on above:Order Comment: Comment s/s of acute impairmentResult Comment: These are unconfirmed results and should not be used for legal purposes. Drug Cut-Off Concentration: AMPH 1000 ng/mL SHERICE 200 ng/mL ANA 200 ng/mL COCM 300 ng/mL OP 300 ng/mL PCP 25 ng/mL PERFORMED BY: [place] [address] PATHOLOGIST B[employer] MICHELLE BENNETT M.D.Performed By: #### CMP, URIC #### [place] [address] USAOpiates [Presence] in Urine by Screen methodOrdered By: MINNA Hernandez on 26-88-9605Tejgmly Screen Ql (U)NegativeNegParkview HealthPhencyclidine Screen Ql (U)Ordered By: MINNA Hernandez on 45-07-4357Eokrsogoxzuwk Ql (U)NegativeNegParkview HealthComment on above:These are unconfirmed results and should not be used for legal purposes. Drug Cut-Off Concentration: AMPH 1000 ng/mL SHERICE 200 ng/mL ANA 200 ng/mL COCM 300 ng/mL OP 300 ng/mL PCP 25 ng/mLProtein [Mass/volume] in Urine by Test stripOrdered By: MINNA Hernandez on 65-85-4472Xleioxg (U) [Mass/Vol]30 mg/dLNormalNegParkview HealthComment on above:Order Comment: Comment c/o urinary symptoms or increased blood pressure Name Collection Type:: Clean-Voided MidstreamPerformed By: #### RPR W RFX #### [facility] , #### CBC #### [place] [address] USARPR w/rfx to Quant TP Abson 74-94-6742HZU, Rfx Quant RPR Non-ReactiveNormalNon ReactiveThe [facility] Physician GroupComment on above: Result Comment: Performed at: - [facility] [id number] [employer] Safety Engineer: Harsha Villanueva PhD, Phone: [phone] PERFORMED BY: [place] [address] PATHOLOGIST B[employer] MICHELLE BENNETT M.D.Performed By: #### RPR W RFX #### [facility] , #### CBC #### [place] [address] USASerum RPR testOrdered By: MINNA Hernandez on 26-35-2762Ylnjzv Ab RPR Ql (S)Non-ReactiveNon ReactiveMercy Health – The Jewish HospitalComment on above:Performed at: - [facility] [address] [id number] Director: Harsha Villanueva PhD, Phone: [phone] Specific gravity Test strip (U) [Rel density]Ordered By: MINNA Hernandez on 73-62-0657Paksulcs gravity (U) [Rel density]1.565Zeeb3.001-1.030[facility] Jewish HospitalUrinalysis complete panel (U)on 49-44-7760Vnydlzxxlb (U) CloudyCritically abnormalClearNOMS HealthcareBILIRUBIN,URINENegativeNegativeNOMS HealthcareColor (U)YellowYellowNOMS HealthcareGlucose Ql (U)NormalNormal mg/dL NOMS HealthcareInterpretation and review of laboratory resultsAbnormalNOMS HealthcareKetones Ql (U)1+NegativeNOND HealthcareLeukocyte esterase Test strip Ql (U)4+NegativeNOND HealthcareNITRITE,URINENegativeNegativeNOND Healthcare OCCULT BLOOD,URINE2+NegativeNOMS HealthcarepH (U)5.5 [pH]5.0 - 9.0NOMS HealthcareProtein (U) [Mass/Vol]30 mg/dLNegativeNOND HealthcareSPECIFICY GRAVITY,URINE1.427Bfjc0.001 - 1.030NOND HealthcareUROBILINOGEN,URINENormalNormal mg/dLNOND HealthcareComment c/o urinary symptoms or increased blood pressure Name Collection Type:: Clean-Voided MidstreamFORBES HOSPITAL HealthcareUrine Cultureon 63-40-1185Cfnbutvi identified Cx Nom (U)ORGANISM: Strep agalactiae - (group b) (O:STRAGA) Colp Count <10,000 PERFORMED BY: [place] [address] PATHOLOGIST [employer] MICHELLE BENNETT M.D.NormalCleveland Clinic Indian River Hospital Physician GroupComment on above: Performed By: #### RPR W RFX #### [facility] , #### CBC #### [facility] [address] [place] [address] USAUrine cultureOrdered By: MINNA Hernandez on 98-77-9816Iglfbncb identified Cx Nom (U)Strep agalactiae - (group b)Abnormal [facility] HospitalUrobilinogen Test strip (U) [Mass/Vol]Ordered By: MINNA Hernandez on 46-76-5100Ebpoacmvzlsl (U) [Mass/Vol]Normal mg/dL NormalMercy Health – The Jewish HospitalpH of Urine by Test stripOrdered By: MARY Hernandez on 23-57-6692fQ (U)5.5 [pH]Normal5.0-9.0[facility] HospitalComment on above:Order Comment: Comment c/o urinary symptoms or increased blood pressure Name Collection Type:: Clean-Voided MidstreamPerformed By: #### RPR W RFX #### [facility] , #### CBC #### [facility] [address] [place] [address] USANo Panel Informationon 09-80-9837Fjvpphr, UANegative Negative - 1999(110) ++++ mg/dLNOND HealthcareProtein, UATraceNegative - 2000(20) ++++ mg/dLNOMS HealthcareNOMS HealthcareAlanine aminotransferase [Enzymatic activity/volume] in Serum or PlasmaOrdered By: MINNA Hernandez on 45-77-6752EDO [Catalytic activity/Vol]12 U/LNormal7-52[facility] HospitalComment on above:Performed By: #### CMP, URIC #### [facility] [address] [place] [address] USAAlbumin [Mass/volume] in Serum or Plasma by Bromocresol green (BCG) dye binding methoOrdered By: MINNA Hernandez on 09-01-2024 Albumin BCG dye [Mass/Vol]3.4 g/dLLow3.5-5.7FAccess Hospital Dayton Alkaline phosphatase [Enzymatic activity/volume] in Serum or PlasmaOrdered By: MINNA Hernandez on 96-63-3940XMH [Catalytic activity/Vol]96 U/ONoqhsq51-206 [facility] HospitalComment on above:Performed By: #### CMP, URIC #### [facility] [address] [place] [id number] USAAppearance of UrineOrdered By: MINNA Hernandez on 42-92-7025Naoevhoqgw (U)CloudyCritically abnormalClearFAccess Hospital DaytonComment on above:Order Comment: Comment c/o urinary symptoms or increased blood pressure Name Collection Type:: Clean-Voided MidstreamPerformed By: #### CMP, URIC #### [facility] [address] [place] [address] USAAspartate aminotransferase [Enzymatic activity/volume] in Serum or PlasmaOrdered By: MINNA Hernandez on 14-85-9773CHW [Catalytic activity/Vol]16 U/HJsrjkt63-42LszpqtkktMercy Health – The Jewish HospitalComment on above: Performed By: #### CMP, URIC #### [facility] [address] [place] [address] USABacteria [Presence] in Urine by AutomatedOrdered By: MARY Hernandez on 82-98-1186Aujkndww Auto Ql (U)None seen [HPF]None Seen [facility] HospitalBilirubin Test strip Ql (U)Ordered By: MINNA Hernandez on 61-22-9474Iivhuukwb Ql (U)NegativeNegativeMercy Health – The Jewish HospitalBilirubin.total [Mass/volume] in Serum or PlasmaOrdered By: MARY Hernandez on 41-41-0905Pxfoehzib [Mass/Vol]0.2 mg/dLLow0.3-1.0[facility] HospitalComment on above:Performed By: #### CMP, URIC #### [place] [id number] USACalcium [Mass/volume] in Serum or PlasmaOrdered By: MARY Hernandez on 05-05-1684Qjvxbjg [Mass/Vol]9.0 mg/dLNormal8.6-10.3 [facility] HospitalComment on above:Performed By: #### CMP, URIC #### [place] [address] USACalcium oxalate crystals [Presence] in Urine by Computer assisted methodOrdered By: MINNA Hernandez on 72-11-2144Yduvkgg oxalate crystals Computer assisted Ql (U)1+ [HPF][facility] HospitalCarbon dioxide, total [Moles/volume] in Serum or PlasmaOrdered By: MINNA Hernandez on 60-71-5535HD6 [Moles/Vol]22.8 mmol/HDqfpoz70.0-31.0[facility] HospitalComment on above:Performed By: #### CMP, URIC #### [place] [address] USAChloride [Moles/volume] in Serum or PlasmaOrdered By: MARY Hernandez on 13-08-2883Bcpeoebj [Moles/Vol]107 mmol/WPxnijj46-505 [facility] HospitalComment on above:Performed By: #### CMP, URIC #### [place] [address] USAColor of Urine by AutoOrdered By: MINNA Hernandez on 99-72-8619Ixfid (U)YellowNoalYVeterans Health AdministrationComment on above:Order Comment: Comment c/o urinary symptoms or increased blood pressure Name Collection Type:: Clean-Voided MidstreamPerformed By: #### CMP, URIC #### [place] [address] USAComprehensive Metabolic Panelon 70-68-0559Kyvkvnt [Mass/Vol]3.4 g/dLLow3.5-5.7The [facility] Physician GroupComment on above: Performed By: #### CMP, URIC #### [place] [address] USACreatinine Clr Calc Ldwojged891.22NormalThe [facility]loop Memorial Hospital Physician GroupComment on above:Performed By: #### CMP, URIC #### [place] [id number] USAGFR/1.73 sq M.predicted MDRD (S/P/Bld) [Vol rate/Area] mL/min/{1.73_m2}NormalThe Sloop Memorial Hospital Physician GroupComment on above:Performed By: #### CMP, URIC #### [facility] [address] [place] [address] USAComprehensive metabolic panelon 62-16-4880Lpddcxl [Mass/Vol]3.4 g/dLLow3.5 - 5.7 g/dLNOND HealthcareAlbumin/Globulin [Mass ratio] 1.2 {ratio}NOMS HealthcareALP [Catalytic activity/Vol]96 U/L34 - 104 U/LNOMS HealthcareALT [Catalytic activity/Vol]12 U/L7 - 52 U/LNOMS HealthcareAnion gap [Moles/Vol]10.9 mmol/L6.0 - 15.0NOMS HealthcareAST [Catalytic activity/Vol]16 U/L13 - 39 U/LNOMS HealthcareBilirubin [Mass/Vol]0.2 mg/dLLow0.3 - 1.0 mg/dLNOMS HealthcareCalcium [Mass/Vol]9 mg/dL8.6 - 10.3 mg/dLNOMS HealthcareChloride [Moles/Vol]107 mmol/L98 - 107 mmol/LNOMS HealthcareCO2 [Moles/Vol]22.8 mmol/L 21.0 - 31.0 mmol/LNOMS HealthcareCreatinine (U) [Mass/Vol]0.58 mg/dLLow0.60 - 1.20 mg/dLNOND HealthcareCREATININE CLR CALC OZHFZMUD129.22NOMS Healthcare ESTIMATED GFRNOMS HealthcareGlobulin (S) [Mass/Vol]2.8 g/dLNOND Healthcare Glucose [Mass/Vol]74 mg/dL70 - 100 mg/dLNOND HealthcareComment on above:Random Glucose Reference Range is dependent on time and content of last meal. Glucose of more than 200 mg/dL in a nonstressed, ambulatory subject supports the diagnosis of Diabetes Mellitus. ADA recommended reference range Interpretation and review of laboratory resultsAbnormalNOMS HealthcarePotassium [Moles/Vol]3.7 mmol/L3.5 - 5.1 mmol/LNOMS HealthcareProtein [Mass/Vol]6.2 g/dL Low6.4 - 8.9 g/dLNOMS HealthcareSodium [Moles/Vol]137 mmol/L136 - 145 mmol/LNOMS HealthcareUrea nitrogen [Mass/Vol]7 mg/dL7 - 25 mg/dLNOMS HealthcareCreatinine [Mass/volume] in Serum or PlasmaOrdered By: MINNA Hernandez on 09-01-2024 Creatinine [Mass/Vol]0.58 mg/dLLow0.60-1.20[facility] Comment on above:Performed By: #### CMP, URIC #### [place] [address] USACreatinine [Mass/volume] in UrineOrdered By: MINNA Hernandez on 15-12-1699Mofwwrdfax (U) [Mass/Vol]135.00 mg/dLMercy Health – The Jewish HospitalComment on above:No reference range establishedDipstick and Microscopicon 45-32-9657Cbevtflm,UrineNone SeenNormalNone SeenThe [facility]loop Memorial Hospital Physician GroupComment on above:Order Comment: Comment c/o urinary symptoms or increased blood pressure Name Collection Type:: Clean-Voided MidstreamPerformed By: #### CMP, URIC #### [place] [address] USABilirubin,UrineNegativeNormalNegativeThe [facility]loop [facility] Hospital Physician GroupComment on above:Order Comment: Comment c/o urinary symptoms or increased blood pressure Name Collection Type:: Clean-Voided MidstreamPerformed By: #### CMP, URIC #### [place] [address] USABudding Yeast,Urine1+ [HPF]NormalNone SeenThe Sloop Memorial Hospital Physician GroupComment on above:Order Comment: Comment c/o urinary symptoms or increased blood pressure Name Collection Type:: Clean-Voided MidstreamResult Comment: PERFORMED BY: [place] [address] PATHOLOGIST B[employer] MICHELLE BENNETT M.D.Performed By: #### CMP, URIC #### [place] [address] USACalcium Oxalate Crystals,Urine1+ [HPF]NormalThe [facility]loop Memorial Hospital Physician GroupComment on above:Order Comment: Comment c/o urinary symptoms or increased blood pressure Name Collection Type:: Clean-Voided MidstreamPerformed By: #### CMP, URIC #### [place] [address] USAGlucose Ql (U)NormalNormalNormalThNell J. Redfield Memorial Hospital Physician GroupComment on above:Order Comment: Comment c/o urinary symptoms or increased blood pressure Name Collection Type:: Clean-Voided MidstreamPerformed By: #### CMP, URIC #### [place] [address] USAHyaline Casts,UrineNoneNormal0-8The [facility] Physician GroupComment on above:Order Comment: Comment c/o urinary symptoms or increased blood pressure Name Collection Type:: Clean-Voided MidstreamPerformed By: #### CMP, URIC #### [place] [address] USAMucus,UrineRareNormalThe [facility] Physician GroupComment on above:Order Comment: Comment c/o urinary symptoms or increased blood pressure Name Collection Type:: Clean-Voided MidstreamPerformed By: #### CMP, URIC #### [place] [address] USANitrite,UrineNegativeNormalNegativeCleveland Clinic Indian River Hospital Physician GroupComment on above:Order Comment: Comment c/o urinary symptoms or increased blood pressure Name Collection Type:: Clean-Voided MidstreamPerformed By: #### CMP, URIC #### [place] [address] USAOccult Blood,UrineNegativeNormalNegativeCleveland Clinic Indian River Hospital Physician GroupComment on above:Order Comment: Comment c/o urinary symptoms or increased blood pressure Name Collection Type:: Clean-Voided MidstreamResult Comment: PERFORMED BY: [place] [address] PATHOLOGIST B[employer] MICHELLE BENNETT M.D.Performed By: #### CMP, URIC #### [address] [address] USAProtein,UrineTraceNormalNegativeCleveland Clinic Indian River Hospital Physician GroupComment on above:Order Comment: Comment c/o urinary symptoms or increased blood pressure Name Collection Type:: Clean-Voided MidstreamPerformed By: #### CMP, URIC #### [place] [address] USARBC,Zpjqg4-8Ocgjoj7-3Hqg [facility] Physician GroupComment on above:Order Comment: Comment c/o urinary symptoms or increased blood pressure Name Collection Type:: Clean-Voided MidstreamPerformed By: #### CMP, URIC #### [place] [address] USASpecificy Morley,Urine1.989Lyizzh1.001-1.030[facility] Physician GroupComment on above:Order Comment: Comment c/o urinary symptoms or increased blood pressure Name Collection Type:: Clean-Voided MidstreamPerformed By: #### CMP, URIC #### [place] [address] USASquamous Epithelial Cell,Aubmd88-51Kseyda5-1Rch [facility] Physician GroupComment on above:Order Comment: Comment c/o urinary symptoms or increased blood pressure Name Collection Type:: Clean-Voided MidstreamPerformed By: #### CMP, URIC #### [place] [address] USAUrobilinogen,UrineNormalNormalNormalThe [facility] Physician GroupComment on above:Order Comment: Comment c/o urinary symptoms or increased blood pressure Name Collection Type:: Clean-Voided MidstreamPerformed By: #### CMP, URIC #### [facility] [address] [place] [address] USAWBC CLUMP, UrineFewNormalNone SeenThe [facility]loop Memorial Hospital Physician GroupComment on above:Order Comment: Comment c/o urinary symptoms or increased blood pressure Name Collection Type:: Clean-Voided MidstreamPerformed By: #### CMP, URIC #### [place] [address] USAWBC,Hbevm95-13Exzjja4-4Wnm [facility] Comment on above:Order Comment: Comment c/o urinary symptoms or increased blood pressure Name Collection Type:: Clean-Voided MidstreamPerformed By: #### CMP, URIC #### [facility] [address] [place] [id number] USAEpithelial cells.squamous [#/area] in Urine sediment by Automated countOrdered By: MINNA Hernandez on 14-04-9048Iupnamnowt cells.squamous Auto (Urine sed) [#/Area]20-49 [HPF]High0-2FAccess Hospital DaytonErythrocytes [#/area] in Urine sediment by Automated countOrdered By: MINNA Hernandez on 94-62-9245TYB Auto (Urine sed) [#/Area]5-9 [HPF]High 0-4FAccess Hospital DaytonGlucose [Mass/volume] in Serum or Plasma Ordered By: MINNA Hernandez on 70-78-5930Fyndgfc [Mass/Vol]74 mg/dLNormal 70-100[facility] HospitalComment on above:ADA recommended reference rangeRandom Glucose Reference Range is dependent on time and content of last meal. Glucose of more than 200 mg/dL in a nonstressed, ambulatory subject supports the diagnosisof Diabetes Mellitus.Result Comment: Random Glucose Reference Range is dependent on time and content of last meal. Glucose of more than 200 mg/dL in a nonstressed, ambulatory subject supports the diagnosis of Diabetes Mellitus. ADA recommended reference rangePerformed By: #### CMP, URIC #### [facility] [address] [place] [id number] USAGlucose [Mass/volume] in Urine by Test stripOrdered By: MINNA Hernandez on 25-46-1635Yhnjldd Test strip (U) [Mass/Vol]Normal mg/dL NormalMercy Health – The Jewish HospitalHemoglobin Test strip Ql (U)Ordered By: MINNA Hernandez on 73-58-7956Hhetcfbfew Ql (U)NegativeNegativeMercy Health – The Jewish HospitalHyaline casts [#/area] in Urine sediment by Automated countOrdered By: MINNA Hernandez on 45-83-6254Hgswrau casts Auto (Urine sed) [#/Area]None [LPF]0-8[facility] HospitalKetones [Presence] in Urine by Test stripOrdered By: MINNA Hernandez on 91-37-7575Dfyilgz Ql (U) 1+NormalNegParkview HealthComment on above:Order Comment: Comment c/o urinary symptoms or increased blood pressure Name Collection Type:: Clean-Voided MidstreamPerformed By: #### CMP, URIC #### [facility] [address] [place] [id number] USALeukocyte clumps [Presence] in Urine by AutomatedOrdered By: MINNA Hernandez on 08-40-1021Uoqlcmedj clumps Auto Ql (U)Few [LPF]High None SeenMercy Health – The Jewish HospitalLeukocyte esterase [Presence] in Urine by Test stripOrdered By: MINNA Hernandez on 06-55-2420Yiedmdtxg esterase Test strip Ql (U)4+NormalNegParkview HealthComment on above:Order Comment: Comment c/o urinary symptoms or increased blood pressure Name Collection Type:: Clean-Voided MidstreamPerformed By: #### CMP, URIC #### [facility] [address] [place] [id number] USALeukocytes [#/area] in Urine sediment by Automated count Ordered By: MINNA Hernandez on 42-94-4244GIO Auto (Urine sed) [#/Area]20-49 [HPF]High0-4FAccess Hospital DaytonMucus [Presence] in Urine by AutomatedOrdered By: MINNA Hernandez on 88-05-0368Utkpm Auto Ql (U)Rare [LPF][facility] Jewish HospitalNitrite Test strip Ql (U)Ordered By: MARY Hernandez on 07-27-0639Oihegum Ql (U)NegativeNegParkview HealthNo Panel Informationon 37-38-3960KWEM HealthcareNo Panel InformationOrdered By: MINNA Hernandez on 44-40-5816Xwyvprdpr GFR (CKD-EPI) > 60.0 mL/MinMercy Health – The Jewish HospitalPharmacy Creatinine Clearance (Zrgl651.22Mer[facility] HospitalPotassium [Moles/volume] in Serum or PlasmaOrdered By: MINNA Hernandez on 57-79-2857Gdstzobtm [Moles/Vol]3.7 mmol/LNormal3.5-5.1FAccess Hospital DaytonComment on above:Performed By: #### CMP, URIC #### [place] [address] USAProtein Creat Ratio Ur Randomon 27-88-7371Milzymwcso, Urine (Random)135.00 mg/dLNormalThe [facility] Hospital Physician GroupComment on above: Order Comment: Comment Already Obtained and in LabResult Comment: No reference range establishedPerformed By: #### CMP, URIC #### [place] [address] USAUrine Protein/Creatinine Jlmia616 mg/g{Cre}Normal0-200[facility] Physician [facility] HospitalComment on above:Order Comment: Comment Already Obtained and in LabResult Comment: PERFORMED BY: [place] [address] PATHOLOGIST B[employer] MICHELLE BENNETT M.D.Performed By: #### CMP, URIC #### [place] [address] USAProtein Test strip (U) [Mass/Vol]Ordered By: MINNA Hernandez on 16-72-9174Rkaqdoa (U) [Mass/Vol]Trace mg/dLHighNegativeMercy Health – The Jewish HospitalProtein [Mass/volume] in Serum or PlasmaOrdered By: MARY Hernandez on 29-46-5043Mlrraiv [Mass/Vol]6.2 g/dLLow6.4-8.9[facility] HospitalComment on above:Performed By: #### CMP, URIC #### [place] [address] USAProtein [Mass/volume] in UrineOrdered By: MINNA Hernandez on 46-41-2167Ezlyeer (U) [Mass/Vol]21 mg/dLHigh0-9[facility] HospitalComment on above:Order Comment: Comment Already Obtained and in LabPerformed By: #### CMP, URIC #### [place] [id number] USAProtein/Creatinine (U) [Mass ratio]on 42-09-0577Vujwpgoqyf spec 2 (U) [Mass/Vol]135 mg/dLCarondelet HealthComment on above:No reference range establishedInterpretation and review of laboratory resultsAbnormVeterans Health Administration HealthcareProtein (U) [Mass/Vol]21 mg/dLHigh0 - 9 mg/dLNOCass Medical CenterURINE PROTEIN/CREATININE GFSSO926 mg/g{Cre}0 - 200 mg/g{Cre}Carondelet HealthComment Already Obtained and in LabUniversity Hospitals Ahuja Medical CenterSerum globulin measurement by calculation (mass/volume)Ordered By: MINNA Hernandez on 11-90-0845Eoeutjfn (S) [Mass/Vol]2.8 g/dLParkview HealthComment on above: Performed By: #### CMP, URIC #### [place] [address] USASerum or plasma albumin/globulin mass ratioOrdered By: MARY Hernandez on 84-09-8711Kosoyzh/Globulin [Mass ratio]1.2 {ratio}Normal [facility] HospitalComment on above:Performed By: #### CMP, URIC #### [place] [address] USASerum or plasma anion gap determinationOrdered By: MINNA Hernandez on 66-16-5050Akoyo gap [Moles/Vol]10.9 mmol/LNormal6.0-15.0 [facility] HospitalComment on above:Performed By: #### CMP, URIC #### [place] [id number] USASodium [Moles/volume] in Serum or PlasmaOrdered By: MARY Hernandez on 57-13-6564Xioxeg [Moles/Vol]137 mmol/WRwivmg153-462 [facility] HospitalComment on above:Performed By: #### CMP, URIC #### [place] [address] USASpecific gravity Test strip (U) [Rel density]Ordered By: MINNA Hernandez on 24-51-1866Kyxglajr gravity (U) [Rel density]1.025 1.001-1.030[facility] Jewish HospitalUrate [Mass/volume] in Serum or PlasmaOrdered By: MINNA Hernandez on 21-25-3176Dpxaf [Mass/Vol]5.5 mg/dL Normal2.3-6.6FAccess Hospital DaytonComment on above:Result Comment: PERFORMED BY: [place] [address] PATHOLOGIST B[employer] MICHELLE BENNETT M.D.Performed By: #### CMP, URIC #### [place] [address] USAUrea nitrogen [Mass/volume] in Serum or PlasmaOrdered By: MINNA Hernandez on 49-40-2622Hjgw nitrogen [Mass/Vol]7 mg/dLNormal09-08 [facility] HospitalComment on above:Performed By: #### CMP, URIC #### [facility] [address] [place] [address] USAUric acidon 20-50-7029Ryjmu [Mass/Vol]5.5 mg/dL2.3 - 6.6 mg/dLNOND HealthcareUrinalysis complete panel (U)on 78-68-0801Jkysuzfsri (U) CloudyCritically abnormalClearNOND HealthcareBILIRUBIN,URINENegativeNegativeNOMS HealthcareColor (U)YellowYellowNOND HealthcareGlucose Ql (U)NormalNormal mg/dL NOMS HealthcareInterpretation and review of laboratory resultsAbnormalNOMS HealthcareKetones Ql (U)1+NegativeNOND HealthcareLeukocyte esterase Test strip Ql (U)4+NegativeNOND HealthcareNITRITE,URINENegativeNegativeNOND Healthcare OCCULT BLOOD,URINENegativeNegativeNOMS HealthcarepH (U)6.5 [pH]5.0 - 9.0NOMS HealthcarePROTEIN,URINETraceNegative mg/dLNOND HealthcareSPECIFICY GRAVITY,URINE 1.0251.001 - 1.030NOND HealthcareUROBILINOGEN,URINENormalNormal mg/dLNOND HealthcareComment c/o urinary symptoms or increased blood pressure Name Collection Type:: Clean-Voided MidstreamUniversity Hospitals Ahuja Medical CenterUrine Cultureon 62-32-8733Zhgrtwzj identified Cx Nom (U)20,000 colonies/ml mixed bacterial skin contaminants 2 Days PERFORMED BY: [place] [address] PATHOLOGIST B[employer] MICHELLE BENNETT M.D.NormalThe [facility]loop Memorial Hospital Physician GroupComment on above: Performed By: #### CMP, URIC #### [facility] [address] [place] [id number] USAUrine cultureOrdered By: MINNA Hernandez on 11-71-2561Fwpraiib identified Cx Nom (U)2 DaysMercy Health – The Jewish Hospital Urine protein/creatinine ratioOrdered By: MINNA Hernandez on 09-01-2024 Protein/Creatinine (U) [Ratio]156 mg/g{Cre}0-200[facility] Jewish HospitalUrobilinogen Test strip (U) [Mass/Vol]Ordered By: MINNA Hernandez on 45-65-6880Jkesqleipzmq (U) [Mass/Vol]Normal mg/dLNormOhioHealth Marion General HospitalYeast.budding [Presence] in Urine by Computer assisted method Ordered By: MINNA Hernandez on 17-46-9865Vfpkp.budding Computer assisted Ql (U)1+ [HPF]HighDignity Health St. Joseph'S Hospital And Medical Centere Fayette County Memorial HospitalpH of Urine by Test stripOrdered By: MINNA Hernandez on 58-18-5110aU (U)6.5 [pH]Normal5.0-9.0 [facility] HospitalComment on above:Order Comment: Comment c/o urinary symptoms or increased blood pressure Name Collection Type:: Clean-Voided MidstreamPerformed By: #### CMP, URIC #### [facility] [address] [place] [id number] USANo Panel Informationon 38-29-4053Oxauijf, UANegative Negative - 1999(110) ++++ mg/dLNOND HealthcareProtein, UATraceNegative - 1999(20) ++++ mg/dLNOND HealthcareNOMS HealthcareNo Panel Informationon 26-02-3353Vckcapf, UANegativeNegative - 1999(110) ++++ mg/dLNOMS Healthcare Protein, UA2+Negative - 1999(20) ++++ mg/dLNOMS HealthcareNOMS HealthcareGroup B Streptococcus culture femaleOrdered By: Mandy Patel on 08-25-2024S. agalactiae Org specific cx Ql (Unsp spec)No Group B Beta Streptococcus Isolated 3 DaysMercy Health – The Jewish HospitalNo Panel Informationon 43-03-2121Datlxlr, UANegativeNegative - 1999(110) ++++ mg/dLNOMS HealthcareProtein, UANegative Negative - 1999(20) ++++ mg/dLNOMS HealthcareNOMS HealthcareStrep B Cultureon 73-87-0533Htjtk B CultureNo Group B Beta Streptococcus Isolated 3 Days PERFORMED BY: [place] [address] PATHOLOGIST B[employer] MICHELLE BENNETT M.D.[facility] Physician GroupComment on above: Performed By: #### CMP, URIC #### [facility] [address] [place] [address] USANo Panel Informationon 94-35-1736Tcgwgbq, UANegative Negative - 1999(110) ++++ mg/dLNOMS HealthcareProtein, UANegativeNegative - 1999(20) ++++ mg/dLNOMS HealthcareNOMS HealthcareBasophils [#/volume] in Blood by Automated countOrdered By: Pippa Lane on 53-95-9253Vrwdwbken (Bld) [#/Vol]0.1 10*3/uLNormal0.0-0.2FAccess Hospital DaytonComment on above:Result Comment: PERFORMED BY: [place] [address] PATHOLOGIST B[employer] MICHELLE BENNETT M.D.Performed By: #### [id number], JULIA, CBC, FE and TIBC #### [facility] [address] [place] [address] USABasophils/100 leukocytes in Blood by Automated count Ordered By: Pippa Lane on 18-98-6934Slqvktnng/100 WBC (Bld)0.6 %Normal. [facility] Jewish HospitalComment on above:Performed By: #### [id number], JULIA, CBC, FE and TIBC #### [facility] [address] [place] [address] USAComplete Blood Count Auto Diffon 70-51-7562Gele Corpuscular HGB Conc33.9 g/cQLuorvp90.0-35.0[facility] Physician GroupComment on above:Performed By: #### [id number], JULIA, CBC, FE and TIBC #### [facility] [address] [place] [address] USANRBC%0.1 /100{WBC}Normal0-0.5[facility] Comment on above:Performed By: #### [id number], JULIA, CBC, FE and TIBC #### [place] [address] USAWhite Blood Count14.7 [CFU]/mLHigh3.8-11.6[facility] Physician [facility] HospitalComment on above:Performed By: #### [id number], JULIA, CBC, FE and TIBC #### [place] [address] USAEosinophils [#/volume] in Blood by Automated countOrdered By: [facility] on 70-71-2279Ndyirlahrew (Bld) [#/Vol]0.2 10*3/uLNormal 0.0-0.45[facility] HospitalComment on above:Performed By: #### [id number], JULIA, CBC, FE and TIBC #### [facility] [address] [place] [address] USAEosinophils/100 leukocytes in Blood by Automated count Ordered By: [facility] on 42-72-4091Pjeczupwbci/100 WBC (Bld)1.3 %Normal. [facility] Jewish HospitalComment on above:Performed By: #### [id number], JULIA, CBC, FE and TIBC #### [facility] [address] [place] [address] USAErythrocyte distribution width [Ratio] by Automated count Ordered By: Pippa Lane on 77-61-4284Ecuawsjenhs distribution width (RBC) [Ratio]13.4 %Axllis20.9-15.3FAccess Hospital DaytonComment on above: Performed By: #### [id number], JULIA, CBC, FE and TIBC #### [facility] [address] [place] [address] USAErythrocytes [#/volume] in Blood by Automated countOrdered By: Pippa Lane on 95-44-2846VEZ (Bld) [#/Vol]4.36 10*6/uLNormal3.60-5.00 [facility] Jewish HospitalComment on above:Performed By: #### [id number], JULIA, CBC, FE and TIBC #### [facility] [address] [place] [address] USAFerritin [Mass/volume] in Serum or PlasmaOrdered By: oliva Lane on 01-98-3881Fejcfngx [Mass/Vol]126.8 ng/yOQxhapa06.0-306.8[facility] Jewish HospitalComment on above:Performed By: #### [id number], JULIA, CBC, FE and TIBC #### [facility] [address] [place] [address] USAFolate [Mass/volume] in Serum or PlasmaOrdered By: Pippa Coyle on 75-83-3206Pgedhj [Mass/Vol]37.0 ng/mL>5.9[facility] Jewish HospitalComment on above:Folate reference range: >5.9 ng/mlThe WHO technical consultation on folate and vitamin t17mqiolfgusmey has determined that folate concentrations lessthan 4 ng/ml are considered deficient.Hematocrit [Volume Fraction] of Blood by Automated countOrdered By: Pippa Lane on 08-01-2024 Hematocrit (Bld) [Volume fraction]39.1 %Bypldd29.0-46.4FAccess Hospital DaytonComment on above:Performed By: #### [id number], JULIA, CBC, FE and TIBC #### [facility] [address] [place] [address] USAHemoglobin [Mass/volume] in BloodOrdered By: Pippa Coyle on 97-10-7282Iroadvrchi (Bld) [Mass/Vol]13.2 g/hLZftkii16.8-15.4 [facility] HospitalComment on above:Performed By: #### [id number], JULIA, CBC, FE and TIBC #### [facility] [address] [place] [address] USAIron [Mass/volume] in Serum or PlasmaOrdered By: Pippa Coyle on 77-11-6108Ozbe [Mass/Vol]76 ug/dWMmyqhm29-621UbfwjqtumMercy Health – The Jewish HospitalComment on above:Performed By: #### [id number], JULIA, CBC, FE and TIBC #### [facility] [address] [place] [address] USAIron and TIBC Profileon 08-01-2024% Iron Aqjgiebisa72.7 % Jgr08-15Wkw [facility] Physician GroupComment on above:Performed By: #### [id number], JULIA, CBC, FE and TIBC #### [facility] [address] [place] [address] USATotal Iron Binding Vdcbijdt572 ug/jRAyfp979-034Vgh [facility] Physician GroupComment on above:Performed By: #### [id number], JULIA, CBC, FE and TIBC #### [place] [id number] USALeukocytes [#/volume] corrected for nucleated erythrocytes in Blood by Automated counOrdered By: Pippa Lane on 82-80-4451RNP corrected for nucl RBC Auto (Bld) [#/Vol]14.7 10*3/uLHigh3.8-11.6FAccess Hospital DaytonLeukocytes [#/volume] in Blood by Automated countOrdered By: Pippa Lane on 95-87-0901LVS (Bld) [#/Vol]14.7 10*3/uLHigh3.8-11.6FAccess Hospital DaytonComment on above:Performed By: #### [id number], JULIA, CBC, FE and TIBC #### [facility] [address] [place] [address] USALymphocytes [#/volume] in Blood by Automated countOrdered By: Pippa Lane on 42-16-1976Bdjrtipgdfj (Bld) [#/Vol]3.0 10*3/uLNormal 1.00-4.8[facility] Jewish HospitalComment on above:Performed By: #### [id number], JULIA, CBC, FE and TIBC #### [facility] [address] [place] [address] USALymphocytes/100 leukocytes in Blood by Automated count Ordered By: Pippa Lane on 19-72-0496Yiqepliykul/100 WBC (Bld)20.7 %Normal. [facility] Jewish HospitalComment on above:Performed By: #### [id number], JULIA, CBC, FE and TIBC #### [facility] [address] [place] [address] [Entitic mass] by Automated countOrdered By: Pippa Coyle on 63-77-3256OYO (RBC) [Entitic mass]30.3 yeHwqvlz15.7-34.3FAccess Hospital DaytonComment on above:Performed By: #### [id number], JULIA, CBC, FE and TIBC #### [facility] [address] [place] [address] Auto (RBC) [Mass/Vol]Ordered By: Pippa Lane on 61-26-4697ZHDP (RBC) [Mass/Vol]33.9 g/dL32.0-35.0[facility] Jewish HospitalMCV [Entitic volume] by Automated countOrdered By: Pippa Lane on 24-67-6865HKO (RBC) [Entitic vol]89.5 lWRsbrsn24-433DymazuqrpMercy Health – The Jewish HospitalComment on above:Performed By: #### [id number], JULIA, CBC, FE and TIBC #### [facility] [address] [place] [address] USAMonocytes [#/volume] in Blood by Automated countOrdered By: oliva De La O-Leonides on 97-08-1057Nrcabnlzu (Bld) [#/Vol]1.0 10*3/uLHigh0.0-0.8 [facility] HospitalComment on above:Performed By: #### [id number], JULIA, CBC, FE and TIBC #### [facility] [address] [place] [address] USAMonocytes/100 leukocytes in Blood by Automated count Ordered By: [facility] Jairon-Leonides on 31-25-8825Kwoaruzah/100 WBC (Bld)6.6 %Normal. [facility] Jewish HospitalComment on above:Performed By: #### [id number], JULIA, CBC, FE and TIBC #### [place] [address] USANeutrophils [#/volume] in Blood by Automated countOrdered By: oliva De La O-Leonides on 01-98-9892Uswbspreeuu (Bld) [#/Vol]10.4 10*3/uLHigh1.8-7.7 [facility] HospitalComment on above:Performed By: #### [id number], JULIA, CBC, FE and TIBC #### [facility] [address] [place], [place] [id number] USANeutrophils/100 leukocytes in Blood by Automated count Ordered By: [facility] Jairon-Leonides on 29-79-0964Swrallcfphq/100 WBC (Bld)70.8 %Normal. [facility] Jewish HospitalComment on above:Performed By: #### [id number], JULIA, CBC, FE and TIBC #### [facility] [address] [place] [address] USANucleated erythrocytes [Presence] in Blood by Automated countOrdered By: oliva De La O-Leonides on 96-93-5298Japragryz RBC Auto Ql (Bld)0.1 /100{WBC}0-0.5FAccess Hospital DaytonPlatelet mean volume [Entitic volume] in Blood by Automated countOrdered By: Pippa Lane on 08-01-2024 Platelet mean volume (Bld) [Entitic vol]7.4 fLNormal6.3-10.7FAccess Hospital DaytonComment on above:Performed By: #### [id number], JULIA, CBC, FE and TIBC #### [facility] [address] [place] [address] USAPlatelets [#/volume] in Blood by Automated countOrdered By: Pippa Lane on 38-23-0497Rzseplchg (Bld) [#/Vol]344 10*3/vPUctsyl688-224 [facility] HospitalComment on above:Performed By: #### [id number], JULIA, CBC, FE and TIBC #### [facility] [address] [place] [address] USASerum or plasma iron binding capacity measurement (mass/volume)Ordered By: Pippa Lane on 92-99-0283Rzol binding capacity [Mass/Vol]483 ug/uVInrj403-236FpxttgslcSamaritan Hospitalerum or plasma iron saturation measurement (mass fraction)Ordered By: Pippa Lane on 96-52-2769Mmbo saturation [Mass fraction]15.7 %Jwk37-94LlgetwdaaMercy Health – The Jewish HospitalTransferrin [Mass/volume] in Serum or PlasmaOrdered By: Pippa Coyle on 04-97-4244Stlqtvxwwua [Mass/Vol]345 mg/mBJpnvbf484-545CkfgznfajMercy Health – The Jewish HospitalComment on above:Performed By: #### [id number], JULIA, CBC, FE and TIBC #### [facility] [address] [place] [address] USAVit. B12/Folate Profileon 75-81-9983Sueyej14.0 ng/mLNormal >5.9The [facility] Hospital Physician GroupComment on above:Result Comment: Folate reference range: >5.9 ng/ml The WHO technical consultation on folate and vitamin b12 deficiencies has determined that folate concentrations less than 4 ng/ml are considered deficient. PERFORMED BY: [place] [address] PATHOLOGIST [employer] MICHELLE BENNETT M.D.Performed By: #### [id number], JULIA, CBC, FE and TIBC #### [place] [address] USAVitamin B12 ser/plasOrdered By: Pippa Lane on 20-77-3944Yejlxvjoh (Vitamin B12) [Mass/Vol]486 pg/hQWzpaoc544-640AlwdvxmazMercy Health – The Jewish HospitalComment on above:Performed By: #### [id number], JULIA, CBC, FE and TIBC #### [place] [address] USANo Panel Informationon 51-63-9154Alsbqbk, UANegative Negative - 1999(110) ++++ mg/dLNOND HealthcareProtein, UANegativeNegative - 1999(20) ++++ mg/dLCarondelet HealthNOND HealthcareQuick Strepon 71-87-3228Eegkn StrepStreptococcus pyogenes Ag [Presence] in Throat by Rapid immunoassay Negative for Group A Strep Antigen Note 1 NOTE 2 Results are those of a screening test. NOTE 3 If clinically indicated please order a culture. NOTE 4 NOTE 5 Reference range = Negative PERFORMED BY: [place] [address] PATHOLOGIST [employer] MICHELLE BENNETT M.D.NormalThe Sloop Memorial Hospital Physician GroupComment on above: Performed By: #### CMP, URIC #### [place] [address] USAStreptococcus pyogenes antigen detectionOrdered By: Aric Norris on 07-22-2024S. pyogenes Ag Ql (Unsp spec)Streptococcus pyogenes antigen detectionSamaritan Hospital. pyogenes Ag Ql (Unsp spec) [facility] HospitalNo Panel Informationon 81-44-1763Iptrowd, UA NegativeNegative - 1999(110) ++++ mg/dLNOMS HealthcareProtein, UANegative Negative - 1999(20) ++++ mg/dLNOMS HealthcareNOMS HealthcareBasophils Auto (Bld) [#/Vol]Ordered By: MINNA Hernandez on 74-12-8947Ktvymaflt (Bld) [#/Vol] Automated basophil count0.0-0.2FAccess Hospital DaytonBasophils [#/volume] in Blood by Automated countOrdered By: MINNA Hernandez on 39-70-8977Efrjxmtez (Bld) [#/Vol]0.1 10*3/uLNormal0.0-0.2FAccess Hospital DaytonComment on above:Result Comment: PERFORMED BY: [facility] [address] [place] [address] PATHOLOGIST [employer] FAN GALEAS M.D.Performed By: #### CBC #### [facility] [address] [place] [address] USABasophils/100 WBC Auto (Bld)Ordered By: MINNA Hernandez on 10-35-6323Akozyxzau/100 WBC (Bld)Automated basophil %.[facility] Jewish HospitalBasophils/100 leukocytes in Blood by Automated count Ordered By: MINNA Hernandez on 13-01-9452Ywypynaft/100 WBC (Bld)0.7 %Normal .[facility] Jewish HospitalComment on above:Performed By: #### CBC #### [facility] [address] [place] [address] USACBC W Auto Differential panel (Bld)on 96-91-5671Oeebhbxwb (Bld) [#/Vol]0.1 10*3/uL0.0 - 0.2 10*3/uLNOMS HealthcareBasophils/100 WBC Manual cnt (Syn fld)0.7 %.[place] HealthcareEosinophils (Bld) [#/Vol]0.3 10*3/uL0.0 - 0.45 10*3/uLNOMS HealthcareEosinophils/100 WBC Manual cnt (Syn fld)1.9 %.Carondelet HealthErythrocyte distribution width (RBC) [Ratio]14.1 %11.9 - 15.3 %[facility]let HealthHematocrit (Bld) [Volume fraction]35.9 %34.0 - 46.4 %[facility] Hemoglobin (Bld) [Mass/Vol]12 g/dL11.8 - 15.4 g/dLJORDAN VALLEY MEDICAL CENTER HealthcareInterpretation and review of laboratory resultsAbnormalJORDAN VALLEY MEDICAL [facility] HealthcareLymphocytes (Bld) [#/Vol] 3.2 10*3/uL1.00 - 4.8 10*3/uLNOMS HealthcareLymphocytes/100 WBC Manual cnt (Syn fld)24.5 %.Carondelet HealthMCH (RBC) [Entitic mass]30.5 pg24.7 - 34.[address] JosephHC (RBC) [Mass/Vol]33.5 g/dL32.0 - 35.0 g/dLCarondelet HealthMCV (RBC) [Entitic vol]91.1 fL80 - 100 fLJORDAN VALLEY MEDICAL CENTER HealthcareMonocytes (Bld) [#/Vol]1 10*3/uL High0.0 - 0.8 10*3/uLJORDAN VALLEY MEDICAL CENTER HealthcareMonocytes+Macrophages/100 WBC Manual cnt (Syn fld)8.1 %.[facility] HealthcareNeutrophils (Bld) [#/Vol]8.4 10*3/uLHigh1.8 - 7.7 10*3/uLNOMS HealthcareNeutrophils/100 WBC Manual cnt (Syn fld)64.8 %.[facility] HealthcareNRBC0.1 /100{WBC}0 - 0.5 /100{WBC}[facility] HealthcarePlatelet mean volume (Bld) [Entitic vol]8.3 fL6.3 - 10.7 fLJORDAN VALLEY MEDICAL CENTER HealthcarePlatelets (Bld) [#/Vol]279 10*3/uL150 - 450 10*3/uLNOMS Fairfield Medical CenterRBC LM.HPF (Urine sed) [#/Area]3.94 10*6/uL3.60 - 5.00 10*6/uLNOMS HealthcareWBC (Bld) [#/Vol]12.9 10*3/uLHigh3.8 - 11.6 10*3/uLNOMS HealthcareWBC LM.HPF (Urine sed) [#/Area]12.9 10*3/uLHigh3.8 - 11.6 10*3/uLNOMS HealthcareNOMS HealthcareComplete Blood Count Auto Diffon 08-49-2777Vgwr Corpuscular HGB Conc33.5 g/jIHvlchh38.0-35.0The [facility] Hospital Physician GroupComment on above:Performed By: #### CBC #### [facility] [address] [place] [address] USANRBC%0.1 /100{WBC}Normal0-0.5The [facility] Comment on above:Performed By: #### CBC #### [facility] [address] [place] [address] USAEosinophils Auto (Bld) [#/Vol]Ordered By: MINNA Hernandez on 31-35-4977Apegghucrri (Bld) [#/Vol]Automated eosinophil count0.0-0.45 [facility] Jewish HospitalEosinophils [#/volume] in Blood by Automated countOrdered By: MINNA Hernandez on 76-28-8313Lmnnewxfbtq (Bld) [#/Vol]0.3 10*3/uLNormal0.0-0.45Mer[facility] Jewish HospitalComment on above:Performed By: #### CBC #### [facility] [address] [place] [address] USAEosinophils/100 WBC Auto (Bld)Ordered By: MINNA Hernandez on 03-00-4958Tvvokurzuld/100 WBC (Bld)Automated eosinophil %.[facility] Jewish HospitalEosinophils/100 leukocytes in Blood by Automated count Ordered By: MINNA Hernandez on 57-15-1316Tkycaunogws/100 WBC (Bld)1.9 % Normal.[facility] Jewish HospitalComment on above:Performed By: #### CBC #### [facility] [address] [place] [id number] USAErythrocyte distribution width Auto (RBC) [Ratio]Ordered By: MINNA Hernandez on 51-69-8642Ynvwldcaflr distribution width (RBC) [Ratio]Erythrocyte distribution width [Ratio] by Automated count11.9-15.3 [facility] Jewish HospitalErythrocyte distribution width [Ratio] by Automated countOrdered By: MINNA Hernandez on 49-84-9880Hxxuuvvytll distribution width (RBC) [Ratio]14.1 %Ixtlkw29.9-15.3FAccess Hospital DaytonComment on above:Performed By: #### CBC #### [facility] [address] [place] [address] USAErythrocytes [#/volume] in Blood by Automated countOrdered By: MINNA Hernandez on 83-35-5292RPF (Bld) [#/Vol]3.94 10*6/uLNormal 3.60-5.00[facility] Jewish HospitalComment on above:Performed By: #### CBC #### [facility] [address] [place] [address] USAHematocrit Auto (Bld) [Volume fraction]Ordered By: MINNA Hernandez on 10-86-3269Czkvichche (Bld) [Volume fraction]Hematocrit [Volume Fraction] of Blood by Automated count34.0-46.4FAccess Hospital Dayton Hematocrit [Volume Fraction] of Blood by Automated countOrdered By: MINNA Hernandez on 51-30-1042Xlvoqwlcpl (Bld) [Volume fraction]35.9 %Normal 34.0-46.4FAccess Hospital DaytonComment on above:Performed By: #### CBC #### [place] [address] USAHemoglobin [Mass/volume] in BloodOrdered By: MINNA Hernandez on 97-38-3957Rejlrlzgym (Bld) [Mass/Vol]Hemoglobin [Mass/volume] in Blood11.8-15.4FAccess Hospital DaytonHemoglobin (Bld) [Mass/Vol]12.0 g/eZSbefkl17.8-15.4FAccess Hospital DaytonComment on above:Performed By: #### CBC #### [facility] [address] [place] [address] USALeukocytes [#/volume] corrected for nucleated erythrocytes in Blood by Automated counOrdered By: MINNA Hernandez on 51-52-2843KUI corrected for nucl RBC Auto (Bld) [#/Vol]Leukocytes [#/volume] corrected for nucleated erythrocytes in Blood by Automated counHigh3.8-11.6FAccess Hospital DaytonWBC corrected for nucl RBC Auto (Bld) [#/Vol]12.9 10*3/uLHigh 3.8-11.6FAccess Hospital DaytonLeukocytes [#/volume] in Blood by Automated countOrdered By: MINNA Hernandez on 44-35-3192OCD (Bld) [#/Vol] 12.9 10*3/uLHigh3.8-11.6FAccess Hospital DaytonComment on above: Performed By: #### CBC #### [facility] [address] [place], [place] [id number] USALymphocytes Auto (Bld) [#/Vol]Ordered By: MINNA Hernandez on 87-24-2488Mfmkplfawkq (Bld) [#/Vol]Lymphocytes [#/volume] in Blood by Automated count1.00-4.8Mer[facility] The Jewish HospitalLymphocytes [#/volume] in Blood by Automated countOrdered By: MINNA Hernandez on 07-02-2024 Lymphocytes (Bld) [#/Vol]3.2 10*3/uLNormal1.00-4.8[facility] Jewish HospitalComment on above:Performed By: #### CBC #### [facility] [address] [place], [place] [address] USALymphocytes/100 WBC Auto (Bld)Ordered By: MINNA Hernandez on 20-99-2588Dosxbtchxkr/100 WBC (Bld)Lymphocytes/100 leukocytes in Blood by Automated count.[facility] – [facility] Jewish HospitalLymphocytes/100 leukocytes in Blood by Automated countOrdered By: MINNA Hernandez on 07-02-2024 Lymphocytes/100 WBC (Bld)24.5 %Normal.[facility] – The Jewish HospitalComment on above:Performed By: #### CBC #### [facility] [address] Auto (RBC) [Entitic mass]Ordered By: MINNA Hernandez on 86-72-7211QTM (RBC) [Entitic mass]MCH [Entitic mass] by Automated count 24.7-34.3FSelect Medical Specialty Hospital - [facility] [Entitic mass] by Automated count Ordered By: MINNA Hernandez on 38-73-1061HPX (RBC) [Entitic mass]30.5 pg Edzrdr40.7-34.3FAccess Hospital DaytonComment on above:Performed By: #### CBC #### [address] Auto (RBC) [Mass/Vol]Ordered By: MINNA Hernandez on 58-35-9230SVCY (RBC) [Mass/Vol]MCHC [Mass/volume] by Automated count 32.0-35.0[facility] (RBC) [Mass/Vol]33.5 g/dL 32.0-35.0[facility] Auto (RBC) [Entitic vol]Ordered By: MINNA Hernandez on 88-53-8608KOW (RBC) [Entitic vol]MCV [Entitic volume] by Automated -600RwycwwcxqSelect Medical Cleveland Clinic Rehabilitation Hospital, Edwin ShawV [Entitic volume] by Automated countOrdered By: MINNA Hernandez on 74-33-3458GFU (RBC) [Entitic vol]91.1 eEYdudpw17-546UfwtwfnkmMercy Health – The Jewish HospitalComment on above:Performed By: #### CBC #### [facility] [address] [place] [address] USAMonocytes Auto (Bld) [#/Vol]Ordered By: MINNA Hernandez on 32-41-5604Myinpbcgt (Bld) [#/Vol]Automated blood monocyte countHigh 0.0-0.8Mer[facility] Jewish HospitalMonocytes [#/volume] in Blood by Automated countOrdered By: MINNA Hernandez on 43-25-0179Knxxqomma (Bld) [#/Vol]1.0 10*3/uLHigh0.0-0.8Mer[facility] Jewish HospitalComment on above: Performed By: #### CBC #### [facility] [address] [place] [id number] USAMonocytes/100 WBC Auto (Bld)Ordered By: MINNA Hernandez on 87-14-8253Sqedzrsck/100 WBC (Bld)Automated monocyte %.[facility] Jewish HospitalMonocytes/100 leukocytes in Blood by Automated count Ordered By: MINNA Hernandez on 43-52-2651Lmxkexlgy/100 WBC (Bld)8.1 %Normal .[facility] The Jewish HospitalComment on above:Performed By: #### CBC #### [facility] [address] [place] [id number] USANeutrophils Auto (Bld) [#/Vol]Ordered By: MINNA Hernandez on 43-27-8496Ayphmblnxtu (Bld) [#/Vol]Neutrophils [#/volume] in Blood by Automated countHigh1.8-7.7FAccess Hospital DaytonNeutrophils [#/volume] in Blood by Automated countOrdered By: MINNA Hernandez on 69-94-5594Sfushyitdnw (Bld) [#/Vol]8.4 10*3/uLHigh1.8-7.7FAccess Hospital DaytonComment on above:Performed By: #### CBC #### [facility] [address] [place] [id number] USANeutrophils/100 WBC Auto (Bld)Ordered By: MINNA Hernandez on 89-04-9319Ifraiardpvm/100 WBC (Bld)Automated neutrophil %.[facility] Jewish HospitalNeutrophils/100 leukocytes in Blood by Automated count Ordered By: MINNA Hernandez on 16-36-3944Nrxbnvrljwh/100 WBC (Bld)64.8 % Normal.[facility] The Jewish HospitalComment on above:Performed By: #### CBC #### [facility] [address] [place] [address] USANucleated erythrocytes [Presence] in Blood by Automated countOrdered By: MINNA Hernandez on 15-24-2497Lrsbotwpq RBC Auto Ql (Bld) Nucleated erythrocytes [Presence] in Blood by Automated count0-0.5FAccess Hospital DaytonNucleated RBC Auto Ql (Bld)0.1 /100{WBC}0-0.5FAccess Hospital DaytonPlatelet mean volume Auto (Bld) [Entitic vol]Ordered By: MINNA Hernandez on 05-62-5685Sdwusafq mean volume (Bld) [Entitic vol] Platelet mean volume [Entitic volume] in Blood by Automated count6.3-10.7 [facility] – The Jewish HospitalPlatelet mean volume [Entitic volume] in Blood by Automated countOrdered By: MINNA Hernandez on 84-45-4601Cyutbqaw mean volume (Bld) [Entitic vol]8.3 fLNormal6.3-10.7FAccess Hospital Dayton Comment on above:Performed By: #### CBC #### [facility] [address] [place] [id number] USAPlatelets Auto (Bld) [#/Vol]Ordered By: MINNA Hernandez on 75-77-4918Mlgtmwnnj (Bld) [#/Vol]Platelets [#/volume] in Blood by Automated badcp281-694HuypvgtcrMercy Health – The Jewish HospitalPlatelets [#/volume] in Blood by Automated countOrdered By: MINNA Hernandez on 93-87-0386Yrcgabekc (Bld) [#/Vol]279 10*3/zJIgqrhv084-285QwnmpobwsMercy Health – The Jewish HospitalComment on above:Performed By: #### CBC #### [facility] [address] [place] [id number] USARBC Auto (Bld) [#/Vol]Ordered By: MINNA Hernandez on 84-61-9033CHD (Bld) [#/Vol]Erythrocytes [#/volume] in Blood by Automated count 3.60-5.00Mer[facility] Health – The Jewish HospitalUS abdomen limitedon 94-15-6346YG abdomen limitedOHIO [facility] H[facility] [place] [address] [place] [address] Ultrasound Report Signed Patient: Danelle Guido MR#: [id number] 64 : 2000 Acct:[id number] Age/Sex: 24 / F ADM Date: 07/01/24 Loc: E3 Room: Type: [facility] Attending Dr: Corina Hernandez MD Ordering Provider: [...] Gibson M.D. 07/02/2024 9:58 AM Dictation Location: [place] [address] Tech: Margie Soto Transcribed By: [facility] 07/02/24 0958 Dictated By: Iftikhar Gibson DO 07/02/24 0958 Signed By: 07/02/24 0958[facility] Physician GroupWBC Auto (Bld) [#/Vol]Ordered By: MINNA Hernandez on 63-20-8565OWO (Bld) [#/Vol]Leukocytes [#/volume] in Blood by Automated countHigh3.8-11.6FAccess Hospital DaytonAlanine aminotransferase [Enzymatic activity/volume] in Serum or PlasmaOrdered By: MARY Hernandez on 30-33-6060IOH [Catalytic activity/Vol]Alanine aminotransferase [Enzymatic activity/volume] in Serum or PlasmaMercy Health – The Jewish HospitalALT [Catalytic activity/Vol]12 U/LNormalMercy Health – The Jewish HospitalComment on above:Performed By: #### CMP, URIC #### [facility] [address] [place] [address] USAAlbumin [Mass/volume] in Serum or Plasma by Bromocresol green (BCG) dye binding methoOrdered By: MINNA Hernandez on 07-01-2024 Albumin BCG dye [Mass/Vol]Albumin [Mass/volume] in Serum or Plasma by Bromocresol green (BCG) dye binding methoLow3.5-5.7FAccess Hospital DaytonAlbumin BCG dye [Mass/Vol]3.4 g/dLLow3.5-5.7FAccess Hospital DaytonAlkaline phosphatase [Enzymatic activity/volume] in Serum or PlasmaOrdered By: MINNA Hernandez on 06-85-2827AVV [Catalytic activity/Vol]Alkaline phosphatase [Enzymatic activity/volume] in Serum or Jilplq97-076AhydylfsvMercy Health – The Jewish HospitalALP [Catalytic activity/Vol]50 U/ERwwycq95-256Wjeacyvyb22 Summers StreetComment on above:Performed By: #### CMP, URIC #### [facility] [address] [place] [address] USAAppearance of UrineOrdered By: MINNA Hernandez on 18-31-9270Ttuiliwisc (U)Urine appearanceCleMarion Hospital Appearance (U)ClearNormalClearMercy Health – The Jewish HospitalComment on above: Order Comment: Name Collection Type:: Clean-Voided MidstreamPerformed By: #### CMP, URIC #### [facility] [address] [place] [address] USAAspartate aminotransferase [Enzymatic activity/volume] in Serum or PlasmaOrdered By: MINNA Hernandez on 19-01-4618UZM [Catalytic activity/Vol]Aspartate aminotransferase [Enzymatic activity/volume] in Serum or HnhnhiMty56-60IuwgcglrcMercy Health – The Jewish HospitalAST [Catalytic activity/Vol]12 U/FVut64-07LugtxxwjoMercy Health – The Jewish HospitalComment on above:Performed By: #### CMP, URIC #### [facility] [address] [place] [address] USABacteria [Presence] in Urine by AutomatedOrdered By: MARY Hernandez on 68-25-2874Wwktvuvh Auto Ql (U)Bacteria [Presence] in Urine by AutomatedNone SeenMercy Health – The Jewish HospitalBacteria Auto Ql (U)None seen [HPF]None [facility] HospitalBilirubin Test strip Ql (U) Ordered By: MINNA Hernandez on 43-39-5565Zoborkgit Ql (U)Bilirubin.total [Presence] in Urine by Test stripNegativeMercy Health – The Jewish Hospital Bilirubin Ql (U)NegativeNegativeMercy Health – The Jewish HospitalBilirubin.total [Mass/volume] in Serum or PlasmaOrdered By: MINNA Hernandez on 07-01-2024 Bilirubin [Mass/Vol]Bilirubin.total [Mass/volume] in Serum or PlasmaLow0.3-1.0 [facility] HospitalBilirubin [Mass/Vol]0.1 mg/dLLow0.3-1.0 [facility] HospitalComment on above:Performed By: #### CMP, URIC #### [facility] [address] [place] [address] USACB W Auto Differential panel (Bld)on 43-52-5095Fjsmmcvyi (Bld) [#/Vol]0.1 10*3/uL0.0 - 0.2 10*3/uLNOMS HealthcareBasophils/100 WBC Manual cnt (Syn fld)0.6 %.[facility]OM[facility] HealthcareEosinophils (Bld) [#/Vol]0.3 10*3/uL0.0 - 0.45 10*3/uLNOMS HealthcareEosinophils/100 WBC Manual cnt (Syn fld)1.8 %.[facility] HealthErythrocyte distribution width (RBC) [Ratio]14 %11.9 - 15.3 %[facility] HealthcareHematocrit (Bld) [Volume fraction]36.8 %34.0 - 46.4 %[facility] Hemoglobin (Bld) [Mass/Vol]12.4 g/dL11.8 - 15.4 g/dLCarondelet Health Interpretation and review of laboratory resultsAbnormalNOCass Medical Center Lymphocytes (Bld) [#/Vol]3.4 10*3/uL1.00 - 4.8 10*3/uLNOMS Healthcare Lymphocytes/100 WBC Manual cnt (Syn fld)24.1 %.[facility] JosephH (RBC) [Entitic mass]30.5 pg24.7 - 34.[address] JosephHC (RBC) [Mass/Vol]33.7 g/dL32.0 - 35.0 g/dLMosaic Life Care at St. JosephV (RBC) [Entitic vol]90.7 fL80 - 100 fLCarondelet Health Monocytes (Bld) [#/Vol]1.4 10*3/uLHigh0.0 - 0.8 10*3/uLNOND Healthcare Monocytes+Macrophages/100 WBC Manual cnt (Syn fld)9.5 %.[facility] Neutrophils (Bld) [#/Vol]9.1 10*3/uLHigh1.8 - 7.7 10*3/uLNOMS Healthcare Neutrophils/100 WBC Manual cnt (Syn fld)64 %.[facility] HealthNRBC0 /100{WBC}0 - 0.5 /100{WBC}[facility] HealthcarePlatelet mean volume (Bld) [Entitic vol]8.1 fL6.3 - 10.7 fLJORDAN VALLEY MEDICAL CENTER HealthcarePlatelets (Bld) [#/Vol]301 10*3/uL150 - 450 10*3/uLNOMS [facility]field Medical CenterRBC LM.HPF (Urine sed) [#/Area]4.06 10*6/uL3.60 - 5.00 10*6/uLNOMS HealthcareWBC (Bld) [#/Vol]14.3 10*3/uLHigh3.8 - 11.6 10*3/uLNOMS HealthcareWBC LM.HPF (Urine sed) [#/Area]14.3 10*3/uLHigh3.8 - 11.6 10*3/uLNOMS [facility] HealthcareCalcium [Mass/volume] in Serum or PlasmaOrdered By: MINNA Hernandez on 86-75-6804Deruwam [Mass/Vol]Calcium [Mass/volume] in Serum or Plasma 8.6-10.3FAccess Hospital DaytonCalcium [Mass/Vol]8.9 mg/dLNormal 8.6-10.3FAccess Hospital DaytonComment on above:Performed By: #### CMP, URIC #### [facility] [address] [place] [id number] USACalcium oxalate crystals [Presence] in Urine by Computer assisted methodOrdered By: MINNA Hernandez on 78-21-7013Qbkdkee oxalate crystals Computer assisted Ql (U)Calcium oxalate crystals [Presence] in Urine by Computer assisted methodMercy Health – The Jewish HospitalCalcium oxalate crystals Computer assisted Ql (U)1+ [HPF][facility] HospitalCarbon dioxide, total [Moles/volume] in Serum or PlasmaOrdered By: MINNA Hernandez on 88-36-8021DM0 [Moles/Vol]Carbon dioxide, total [Moles/volume] in Serum or NmzaeaPxq87.0-31.0[facility] HospitalCO2 [Moles/Vol]20.6 mmol/L Low21.0-31.0Mer[facility] Jewish HospitalComment on above:Performed By: #### CMP, URIC #### [facility] [address] [place] [address] USAChloride [Moles/volume] in Serum or PlasmaOrdered By: MARY Hernandez on 51-82-8951Eczsvwim [Moles/Vol]Chloride [Moles/volume] in Serum or WqgvywNrvs61-837SncqihvjyMercy Health – The Jewish HospitalChloride [Moles/Vol] 109 mmol/GFtxm12-066Ykvsietbm[address] [place], [place] [address]Comment on above:Performed By: #### CMP, URIC #### [facility] [address] [place] [id number] USAColor Auto (U)Ordered By: MINNA Hernandez on 86-84-8184Fdvqp (U)Color of Urine by AutoYelProtestant Deaconess Hospital Color of Urine by AutoOrdered By: MINNA Hernandez on 22-82-8361Mcvcn (U) Light-yellowNormalYellowMercy Health – The Jewish HospitalComment on above:Order Comment: Name Collection Type:: Clean-Voided MidstreamPerformed By: #### CMP, URIC #### [facility] [address] [place] [address] USAComplete Blood Count Auto Diffon 83-55-1254Wvkcrcoor (Bld) [#/Vol]0.1 10*3/uLNormal0.0-0.2The [facility] Physician GroupComment on above: Result Comment: PERFORMED BY: [place] [address] PATHOLOGIST [employer] FAN GALEAS M.D.Performed By: #### CMP, URIC #### [place] [address] USABasophils/100 WBC (Bld)0.6 %Normal.The [facility] Physician GroupComment on above:Performed By: #### CMP, URIC #### [place] [address] USAEosinophils (Bld) [#/Vol]0.3 10*3/uLNormal0.0-0.45The [facility] Physician GroupComment on above:Performed By: #### CMP, URIC #### [place] [address] USAEosinophils/100 WBC (Bld)1.8 %Normal.The [facility] Physician GroupComment on above:Performed By: #### CMP, URIC #### [place] [address] USAErythrocyte distribution width (RBC) [Ratio]14.0 %Normal 11.9-15.3The [facility] Physician GroupComment on above:Performed By: #### CMP, URIC #### [place] [address] USAHematocrit (Bld) [Volume fraction]36.8 %Dilqhx75.0-46.4The [facility] Physician GroupComment on above:Performed By: #### CMP, URIC #### [place] [address] USAHemoglobin (Bld) [Mass/Vol]12.4 g/oKBcumdo22.8-15.4The [facility] Physician GroupComment on above:Performed By: #### CMP, URIC #### [place] [address] USALymphocytes (Bld) [#/Vol]3.4 10*3/uLNormal1.00-4.8The [facility] Physician GroupComment on above:Performed By: #### CMP, URIC #### [place] [id number] USALymphocytes/100 WBC (Bld)24.1 %Normal.The [facility] Physician GroupComment on above:Performed By: #### CMP, URIC #### [facility] [address] [place] [address] USAH (RBC) [Entitic mass]30.5 ohVnomir79.7-34.3The [facility] Physician GroupComment on above:Performed By: #### CMP, URIC #### [place] [address] USAMCV (RBC) [Entitic vol]90.7 mVInhwtg57-721Voj [facility] Physician GroupComment on above:Performed By: #### CMP, URIC #### [place] [address] USAMean Corpuscular HGB Conc33.7 g/mQZimvzj80.0-35.0The [facility] Physician GroupComment on above:Performed By: #### CMP, URIC #### [place] [address] USAMonocytes (Bld) [#/Vol]1.4 10*3/uLHigh0.0-0.8The [facility] Physician GroupComment on above:Performed By: #### CMP, URIC #### [place] [address] USAMonocytes/100 WBC (Bld)9.5 %Normal.[facility] Physician GroupComment on above:Performed By: #### CMP, URIC #### [place] [address] USANeutrophils (Bld) [#/Vol]9.1 10*3/uLHigh1.8-7.7The [facility] Physician GroupComment on above:Performed By: #### CMP, URIC #### [place] [address] USANeutrophils/100 WBC (Bld)64.0 %Normal.[facility] Physician GroupComment on above:Performed By: #### CMP, URIC #### [place] [address] USANRBC%0.0 /100{WBC}Normal0-0.5[facility] Comment on above:Performed By: #### CMP, URIC #### [place] [address] USAPlatelet mean volume (Bld) [Entitic vol]8.1 fLNormal 6.3-10.7The [facility] Physician GroupComment on above:Performed By: #### CMP, URIC #### [place] [address] USAPlatelets (Bld) [#/Vol]301 10*3/dUVimdus037-296Eic [facility] Physician GroupComment on above:Performed By: #### CMP, URIC #### [place] [address] USARBC (Bld) [#/Vol]4.06 10*6/uLNormal3.60-5.00The [facility] Physician GroupComment on above:Performed By: #### CMP, URIC #### [place] [address] USAWBC (Bld) [#/Vol]14.3 10*3/uLHigh3.8-11.6The [facility] Physician GroupComment on above:Performed By: #### CMP, URIC #### [place] [address] USAComprehensive Metabolic Panelon 93-49-2367Vmltcfy [Mass/Vol]3.4 g/dLLow3.5-5.7The [facility] Physician GroupComment on above: Performed By: #### CMP, URIC #### [place] [address] USACreatinine Clr Calc Auygivdv801.81NormalThe [facility] Hospital Physician GroupComment on above:Result Comment: PERFORMED BY: [place] [address] PATHOLOGIST [employer] FAN GALEAS M.D.Performed By: #### CMP, URIC #### [place] [address] USAGFR/1.73 sq M.predicted MDRD (S/P/Bld) [Vol rate/Area] mL/min/{1.73_m2}NormalThe [facility]loop Memorial Hospital Physician GroupComment on above:Performed By: #### CMP, URIC #### [place] [address] USACreatinine [Mass/volume] in Serum or PlasmaOrdered By: MARY Hernandez on 77-62-5978Wettnqxdbh [Mass/Vol]Creatinine [Mass/volume] in Serum or PlasmaLow0.60-1.20[facility] HospitalCreatinine [Mass/Vol]0.51 mg/dLLow0.60-1.20[facility] HospitalComment on above:Performed By: #### CMP, URIC #### [place] [address] USADipstick and Microscopicon 28-13-1485Epvazcum,UrineNone SeenNormalNone SeenThe [facility]loop Memorial Hospital Physician GroupComment on above:Order Comment: Name Collection Type:: Clean-Voided MidstreamPerformed By: #### CMP, URIC #### [place] [address] USABilirubin,UrineNegativeNormalNegativeThe [facility] Physician GroupComment on above:Order Comment: Name Collection Type:: Clean- Voided MidstreamPerformed By: #### CMP, URIC #### [place] [address] USACalcium Oxalate Crystals,Urine1+NormalThe [facility] Physician GroupComment on above:Order Comment: Name Collection Type:: Clean- Voided MidstreamPerformed By: #### CMP, URIC #### [place] [address] USAGlucose Ql (U)NormalNormalNormalThe [facility] Physician GroupComment on above:Order Comment: Name Collection Type:: Clean-Voided MidstreamPerformed By: #### CMP, URIC #### [place] [address] USAHyaline Casts,Aiguw5-9Vvongz2-9Urb [facility] Physician GroupComment on above:Order Comment: Name Collection Type:: Clean-Voided MidstreamPerformed By: #### CMP, URIC #### [place] [address] USAMucus,UrineRareNormalCleveland Clinic Indian River Hospital Physician GroupComment on above:Order Comment: Name Collection Type:: Clean-Voided MidstreamResult Comment: PERFORMED BY: [place] [address] PATHOLOGIST [employer] FAN GALEAS M.D.Performed By: #### CMP, URIC #### [place] [address] USANitrite,UrineNegativeNormalNegativeCleveland Clinic Indian River Hospital Physician GroupComment on above:Order Comment: Name Collection Type:: Clean-Voided MidstreamPerformed By: #### CMP, URIC #### [place] [id number] USAOccult Blood,UrineNegativeNormalNegativeCleveland Clinic Indian River Hospital Physician GroupComment on above:Order Comment: Name Collection Type:: Clean- Voided MidstreamResult Comment: PERFORMED BY: [place] [address] PATHOLOGIST [employer] FAN GALEAS M.D.Performed By: #### CMP, URIC #### [place] [id number] USAProtein,UrineNegativeNormalNegativeCleveland Clinic Indian River Hospital Physician GroupComment on above:Order Comment: Name Collection Type:: Clean-Voided MidstreamPerformed By: #### CMP, URIC #### [place] [id number] USARBC,Snrcb4-1Ogwakx7-6Vke [facility] Physician GroupComment on above:Order Comment: Name Collection Type:: Clean-Voided MidstreamPerformed By: #### CMP, URIC #### [facility] [address] [place] [address] USASpecificy Morley,Urine1.050Ffiypj7.001-1.030The [facility] Physician GroupComment on above:Order Comment: Name Collection Type:: Clean- Voided MidstreamPerformed By: #### CMP, URIC #### [facility] [address] [place] [address] USASquamous Epithelial Cell,Dnwdt8-5Wqvw3-1Elw [facility] Physician GroupComment on above:Order Comment: Name Collection Type:: Clean- Voided MidstreamPerformed By: #### CMP, URIC #### [place] [address] USAUrobilinogen,UrineNormalNormalNormalThe [facility] Physician GroupComment on above:Order Comment: Name Collection Type:: Clean- Voided MidstreamPerformed By: #### CMP, URIC #### [facility] [address] [place] [address] USAWBC,Fepoo0-8Hmrx7-3Zcv [facility] Physician GroupComment on above:Order Comment: Name Collection Type:: Clean-Voided MidstreamPerformed By: #### CMP, URIC #### [facility] [address] [place] [address] USAEpithelial cells.squamous [#/area] in Urine sediment by Automated countOrdered By: MINNA Hernandez on 27-82-2795Jrwipyucxr cells.squamous Auto (Urine sed) [#/Area]Epithelial cells.squamous [#/area] in Urine sediment by Automated countSt. Mary'S Medical Center02FAccess Hospital Dayton Epithelial cells.squamous Auto (Urine sed) [#/Area]5-9 [HPF]High026 Young StreetErythrocytes [#/area] in Urine sediment by Automated countOrdered By: MINNA Hernandez on 65-40-6960BVD Auto (Urine sed) [#/Area] Erythrocytes [#/area] in Urine sediment by Automated count091 Horne StreetRBC Auto (Urine sed) [#/Area]1-2 [HPF]0-4FAccess Hospital DaytonGlobulin Calc (S) [Mass/Vol]Ordered By: MINNA Hernandez on 68-66-6432Hwdfpurl (S) [Mass/Vol]Serum globulin measurement by calculation (mass/volume)[facility] HospitalGlucose [Mass/volume] in Serum or PlasmaOrdered By: MINNA Hernandez on 82-20-4252Hslfqma [Mass/Vol]Glucose [Mass/volume] in Serum or Mjmwgu42-937HmdlkhkutMercy Health – The Jewish HospitalComment on above:ADA recommended reference rangeRandom Glucose Reference Range is dependent on time and content of last meal. Glucose of more than 200 mg/dL in a nonstressed, ambulatory subject supports the diagnosisof Diabetes Mellitus. Glucose [Mass/Vol]89 mg/zHFqrkrf07-990KfyknvlhoMercy Health – The Jewish HospitalComment on above:ADA recommended reference rangeRandom Glucose Reference Range is dependent on time and content of last meal. Glucose of more than 200 mg/dL in a nonstressed, ambulatory subject supports the diagnosisof Diabetes Mellitus. Result Comment: Random Glucose Reference Range is dependent on time and content of last meal. Glucose of more than 200 mg/dL in a nonstressed, ambulatory subject supports the diagnosis of Diabetes Mellitus. ADA recommended reference rangePerformed By: #### CMP, URIC #### [place] [address] USAGlucose [Mass/volume] in Urine by Test stripOrdered By: MINNA Hernandez on 49-64-4258Ksbedxl Test strip (U) [Mass/Vol]Glucose [Mass/volume] in Urine by Test stripNormOhioHealth Marion General Hospital Glucose Test strip (U) [Mass/Vol]Normal mg/dLNormOhioHealth Marion General HospitalHemoglobin Test strip Ql (U)Ordered By: MINNA Hernandez on 07-01-2024 Hemoglobin Ql (U)Hemoglobin [Presence] in Urine by Test stripNegativeMercy Health – The Jewish HospitalHemoglobin Ql (U)NegativeNegativeMercy Health – The Jewish HospitalHyaline casts [#/area] in Urine sediment by Automated countOrdered By: MINNA Hernandez on 24-02-2808Yroneeb casts Auto (Urine sed) [#/Area] Hyaline casts [#/area] in Urine sediment by Automated count0-8[facility] Jewish HospitalHyaline casts Auto (Urine sed) [#/Area]0-8 [LPF]0-8[facility] HospitalKetones Test strip Ql (U)Ordered By: MINNA Hernandez on 70-83-3192Ysaifkv Ql (U)Ketones [Presence] in Urine by Test stripHigh NegativeMercy Health – The Jewish HospitalKetones [Presence] in Urine by Test stripOrdered By: MINNA Hernandez on 81-53-6997Hxlfnta Ql (U)1+HighNegative [facility] Jewish HospitalComment on above:Order Comment: Name Collection Type:: Clean-Voided MidstreamPerformed By: #### CMP, URIC #### [facility] [address] [place] [id number] USALeukocyte esterase [Presence] in Urine by Test strip Ordered By: MINNA Hernandez on 50-16-8347Vjmxheqft esterase Test strip Ql (U)Leukocyte esterase [Presence] in Urine by Test stripHighNegativeMercy Health – The Jewish HospitalLeukocyte esterase Test strip Ql (U)1+HighNegative [facility] HospitalComment on above:Order Comment: Name Collection Type:: Clean-Voided MidstreamPerformed By: #### CMP, URIC #### [facility] [address] [place] [id number] USALeukocytes [#/area] in Urine sediment by Automated count Ordered By: MINNA Hernandez on 29-23-5405LER Auto (Urine sed) [#/Area] Leukocytes [#/area] in Urine sediment by Automated countHigh0-4FAccess Hospital DaytonWBC Auto (Urine sed) [#/Area]5-9 [HPF]High0-4FAccess Hospital DaytonMucus [Presence] in Urine by AutomatedOrdered By: MINNA Hernandez on 99-31-0830Bsxjd Auto Ql (U)Mucus [Presence] in Urine by AutomatedMercy Health – The Jewish HospitalMucus Auto Ql (U)Rare [LPF][facility] HospitalNitrite Test strip Ql (U)Ordered By: MINNA Hernandez on 62-55-8137Sxjtrtl Ql (U)Nitrite [Presence] in Urine by Test stripNegative [facility] HospitalNitrite Ql (U)NegativeNegativeMercy Health – The Jewish HospitalNo Panel InformationOrdered By: MINNA Hernandez on 19-80-6122Fpbjkfzns GFR (CKD-EPI)> 60.0 mL/MinMercy Health – The Jewish Hospital Pharmacy Creatinine Clearance (Fgvl081.81[facility] Potassium [Moles/volume] in Serum or PlasmaOrdered By: MINNA Hernandez on 38-08-4097Omblmvzkq [Moles/Vol]Potassium [Moles/volume] in Serum or Plasma 3.5-5.1FAccess Hospital DaytonPotassium [Moles/Vol]3.6 mmol/LNormal 3.5-5.1FAccess Hospital DaytonComment on above:Performed By: #### CMP, URIC #### [facility] [address] [place] [address] USAProtein Test strip (U) [Mass/Vol]Ordered By: MINNA Hernandez on 80-65-2345Hngofpm (U) [Mass/Vol]Protein [Mass/volume] in Urine by Test stripNegativeMercy Health – The Jewish HospitalProtein (U) [Mass/Vol] NegativeNegativeMercy Health – The Jewish HospitalProtein [Mass/volume] in Serum or PlasmaOrdered By: MINNA Hernandez on 04-48-4432Drrohuv [Mass/Vol]Protein [Mass/volume] in Serum or PlasmaLow6.4-8.9[facility] Protein [Mass/Vol]5.6 g/dLLow6.4-8.9[facility] HospitalComment on above:Performed By: #### CMP, URIC #### [facility] [address] [place] [address] USASerum globulin measurement by calculation (mass/volume) Ordered By: MINNA Hernandez on 61-88-7599Ctmojyaj (S) [Mass/Vol]2.2 g/dL NormalMercy Health – The Jewish HospitalComment on above:Performed By: #### CMP, URIC #### [facility] [address] [place] [address] USASerum or plasma albumin/globulin mass ratioOrdered By: MARY Hernandez on 83-33-6390Pethnzf/Globulin [Mass ratio]Serum or plasma albumin/globulin mass ratioMercy Health – The Jewish HospitalAlbumin/Globulin [Mass ratio]1.5 {ratio}NormalMercy Health – The Jewish HospitalComment on above: Performed By: #### CMP, URIC #### [facility] [address] [place] [address] USASerum or plasma anion gap determinationOrdered By: MINNA Hernandez on 58-62-1970Lzqpi gap [Moles/Vol]Serum or plasma anion gap determination6.0-15.0[facility] HospitalAnion gap [Moles/Vol]13.0 mmol/LNormal6.0-15.0[facility] HospitalComment on above:Performed By: #### CMP, URIC #### [facility] [address] [place] [address] USASodium [Moles/volume] in Serum or PlasmaOrdered By: MARY Hernandez on 95-49-3343Trdsbz [Moles/Vol]Sodium [Moles/volume] in Serum or Zcykfh139-626IkoteggviSamaritan Hospitalodium [Moles/Vol]139 mmol/L Curguk441-[address]Euv[address] [place], [place] [address]Comment on above:Performed By: #### CMP, URIC #### [facility] [address] [place], [place] [id number] USASpecific gravity Test strip (U) [Rel density]Ordered By: MINNA Hernandez on 38-49-7666Zemzxsii gravity (U) [Rel density]Specific gravity of Urine by Test strip1.001-1.030[facility] Specific gravity (U) [Rel density]1.0231.001-1.030[facility] HospitalUrea nitrogen [Mass/volume] in Serum or PlasmaOrdered By: MINNA Hernandez on 78-82-0272Zrox nitrogen [Mass/Vol]Urea nitrogen [Mass/volume] in Serum or PlasmaLow7-25Mer[facility] Jewish HospitalUrea nitrogen [Mass/Vol]6 mg/dL Low7-[facility] Jewish HospitalComment on above:Performed By: #### CMP, URIC #### [facility] [address] [place] [id number] USAUrinalysis complete panel (U)on 08-26-8015Lafwviwtzt (U) ClearClearNOMS HealthcareBILIRUBIN,URINENegativeNegativeNOMS HealthcareColor (U) Light-YellowYellowNOMS HealthcareGlucose Ql (U)NormalNormalNOMS Healthcare Interpretation and review of laboratory resultsAbnormalNOMS HealthcareKetones Ql (U)1+HighNegativeNOMS HealthcareLeukocyte esterase Test strip Ql (U)1+High NegativeNOMS HealthcareNITRITE,URINENegativeNegativeNOMS HealthcareOCCULT BLOOD,URINENegativeNegativeNOMS HealthcarepH (U)6 [pH]5.0 - 9.0N[facility] PROTEIN,URINENegativeNegativeNOMS HealthcareSPECIFICY GRAVITY,URINE1.0231.001 - 1.030NOMS HealthcareUROBILINOGEN,URINENormalNormalNOMS HealthcareName Collection Type:: Clean-Voided MidstreamUniversity Hospitals Ahuja Medical CenterUrine Cultureon 07-01-2024 Bacteria identified Cx Nom (U)Urine Culture Results 20,000 colonies/ml Mixed Bacterial Skin Contaminants 2 Days PERFORMED BY: [place] [address] PATHOLOGIST B[employer] FAN GALEAS M.D.NormalCleveland Clinic Indian River Hospital Physician GroupComment on above: Performed By: #### CMP, URIC #### [facility] [address] [place] [id number] USAUrine cultureOrdered By: MINNA Hernandez on 05-07-5592Wquypszh identified Cx Nom (U)Urine cultureMercy Health – The Jewish HospitalBacteria identified Cx Nom (U)[facility] Urobilinogen Test strip (U) [Mass/Vol]Ordered By: MINNA Hernandez on 83-44-6313Qchaalwqpumg (U) [Mass/Vol]Urobilinogen [Mass/volume] in Urine by Test stripNoSelect Medical Cleveland Clinic Rehabilitation Hospital, AvonUrobilinogen (U) [Mass/Vol]Normal mg/dLNormOhioHealth Marion General HospitalpH Test strip (U)Ordered By: MINNA Hernandez on 34-73-7041pO (U)pH of Urine by Test strip5.0-9.0[facility] HospitalpH of Urine by Test stripOrdered By: MINNA Hernandez on 18-48-3650tG (U)6.0 [pH]Normal5.0-9.0[facility] Comment on above:Order Comment: Name Collection Type:: Clean-Voided Midstream Performed By: #### CMP, URIC #### [facility] [address] [place] [address] USANo Panel Informationon 10-19-5233Deugiwe, UANegative Negative - 1999(110) ++++ mg/dLJORDAN VALLEY MEDICAL CENTER HealthcareProtein, UANegativeNegative - 2000(20) ++++ mg/dLNovant Health Brunswick Medical CenterGlucose Tolerance 3 Houron 74-68-9376Lctqerr Tolerance 3 HourNoCritical access hospital Physician GroupComment on above:Result Comment: FASTING 89 Col: 06/24/24 0725 1HR GLU 188 Col: 06/24/24 0825 2HR GLU 137 Col: 06/24/24 0925 3HR GLU 110 Col: 06/24/24 1025 NON-GESTATIONAL GESTATIONAL FASTING 70-100 < 92 1 HOUR < 200 < 180 2 HOUR < 140 < 153 3 HOUR NOT ESTABLISHED < 140 PERFORMED BY: [place] [address] PATHOLOGIST [employer] FAN GALEAS M.D.Performed By: #### RPR W RFX #### [facility] , #### CBC #### [facility] [address] [place] [address] USASerum or plasma glucose tolerance 3 hours panelOrdered By: Mandy Patel on 42-12-0741Sgrsgiu tolerance 3 hours panelSerum or plasma glucose tolerance 3 hours panelMercy Health – The Jewish HospitalComment on above:FASTING 89 Col: 06/24/24 0725 1HR GLU 188 Col: 06/24/24 0825 2HR GLU 137 Col: 06/24/24 0925 3HR VVC706 Col: 06/24/24 1025Glucose tolerance 3 hours panel See commentMercy Health – The Jewish HospitalComment on above:FASTING 89 Col: 06/24/24 0725 1HR GLU 188 Col: 06/24/24 0825 2HR GLU 137 Col: 06/24/24 0925 3HR UJH002 Col: 06/24/24 1025No Panel Informationon 72-01-1800Vblzkzh, UANegative Negative - 1999(110) ++++ mg/dLNOMS HealthcareProtein, UANegativeNegative - 1999(20) ++++ mg/dLNOMS HealthcareNOMS HealthcareAlanine aminotransferase [Enzymatic activity/volume] in Serum or PlasmaOrdered By: Pippa Lane on 32-54-3881HVH [Catalytic activity/Vol]Alanine aminotransferase [Enzymatic activity/volume] in Serum or Plasma7[facility] HospitalALT [Catalytic activity/Vol]13 U/LNormal792 Rivas StreetComment on above:Performed By: #### RPR W RFX #### [facility] , #### CBC #### [place] [address] USAAlbumin [Mass/volume] in Serum or Plasma by Bromocresol green (BCG) dye binding methoOrdered By: Pippa Lane on 58-03-0252Xzlzuqd BCG dye [Mass/Vol]Albumin [Mass/volume] in Serum or Plasma by Bromocresol green (BCG) dye binding metho3.5-5.7FAccess Hospital DaytonAlbumin BCG dye [Mass/Vol]3.7 g/dL3.5-5.7FAccess Hospital DaytonAlkaline phosphatase [Enzymatic activity/volume] in Serum or PlasmaOrdered By: Pippa Lane on 17-59-7939DOM [Catalytic activity/Vol]Alkaline phosphatase [Enzymatic activity/volume] in Serum or Anrmdn64-353Kndiehutf22 Summers StreetALP [Catalytic activity/Vol]53 U/IKrwakn20-424Pctvwwdno[address] Comment on above:Performed By: #### RPR W RFX #### [facility] , #### CBC #### [facility] [address] [place] [address] USAAspartate aminotransferase [Enzymatic activity/volume] in Serum or PlasmaOrdered By: Pippa Lane on 04-77-9561HEU [Catalytic activity/Vol]Aspartate aminotransferase [Enzymatic activity/volume] in Serum or Xoqyoj26-87MfpbgagndMercy Health – The Jewish HospitalAST [Catalytic activity/Vol]13 U/L Xddgxd13-40RpmesjwqgMercy Health – The Jewish HospitalComment on above:Performed By: #### RPR W RFX #### [facility] , #### CBC #### [facility] [address] [place] [address] USABasophils Auto (Bld) [#/Vol]Ordered By: oliva Lane on 94-69-9214Uwywutnaf (Bld) [#/Vol]Automated basophil count0.0-0.2FAccess Hospital DaytonBasophils/100 WBC Auto (Bld)Ordered By: oliva Lane on 07-45-2699Igtrurgsf/100 WBC (Bld)Automated basophil %.[facility] HospitalBilirubin.total [Mass/volume] in Serum or PlasmaOrdered By: Pippa Lane on 30-40-3048Mqqgikgly [Mass/Vol]Bilirubin.total [Mass/volume] in Serum or PlasmaLow0.3-1.0[facility] HospitalBilirubin [Mass/Vol] 0.2 mg/dLLow0.3-1.0[facility] HospitalComment on above:Performed By: #### RPR W RFX #### [facility] , #### CBC #### [facility] [address] [place] [address] USACalcium [Mass/volume] in Serum or PlasmaOrdered By: oliva Lane on 24-12-9597Owznysc [Mass/Vol]Calcium [Mass/volume] in Serum or Plasma8.6-10.3FAccess Hospital DaytonCalcium [Mass/Vol]9.5 mg/dLNormal 8.6-10.3FAccess Hospital DaytonComment on above:Performed By: #### RPR W RFX #### [facility] , #### CBC #### [facility] [address] [place] [address] USACarbon dioxide, total [Moles/volume] in Serum or Plasma Ordered By: Pippa Lane on 50-53-4907TJ9 [Moles/Vol]Carbon dioxide, total [Moles/volume] in Serum or Ykuupq78.0-31.0[facility] HospitalCO2 [Moles/Vol]27.0 mmol/TRsqipy73.0-31.0[facility] HospitalComment on above:Performed By: #### RPR W RFX #### [facility] , #### CBC #### [place] [address] USAChloride [Moles/volume] in Serum or PlasmaOrdered By: Pippa Lane on 00-14-8474Piqotttd [Moles/Vol]Chloride [Moles/volume] in Serum or Zmqjnl62-234WckblfzuiMercy Health – The Jewish HospitalChloride [Moles/Vol]105 mmol/L Irdesv87-113Jieqgfuwa[address] [place], [place] [address]Comment on above:Performed By: #### RPR W RFX #### [facility] , #### CBC #### [place] [address] USAComplete Blood Count Auto Diffon 83-81-8893Brkqcteal (Bld) [#/Vol]0.1 10*3/uLNormal0.0-0.2The [facility] Physician GroupComment on above: Result Comment: PERFORMED BY: [place] [address] PATHOLOGIST [employer] FAN GALEAS M.D.Performed By: #### CMP, CBC, [id number], JULIA, FE and TIBC #### [address] [place] [address] USABasophils/100 WBC (Bld)0.5 %Normal.The [facility] Physician GroupComment on above:Performed By: #### CMP, CBC, [id number], JULIA, FE and TIBC #### [place] [address] USAEosinophils (Bld) [#/Vol]0.2 10*3/uLNormal0.0-0.45The [facility] Physician GroupComment on above:Performed By: #### CMP, CBC, [id number], JULIA, FE and TIBC #### [place] [address] USAEosinophils/100 WBC (Bld)1.2 %Normal.The [facility] Physician GroupComment on above:Performed By: #### CMP, CBC, [id number], JULIA, FE and TIBC #### [place] [address] USAErythrocyte distribution width (RBC) [Ratio]13.4 %Normal 11.9-15.3The [facility] Physician GroupComment on above:Performed By: #### CMP, CBC, [id number], JULIA, FE and TIBC #### [place] [address] USAHematocrit (Bld) [Volume fraction]36.3 %Qimovf34.0-46.4The [facility] Physician GroupComment on above:Performed By: #### CMP, CBC, [id number], JULIA, FE and TIBC #### [place] [address] USAHemoglobin (Bld) [Mass/Vol]12.3 g/wHMkwwzj36.8-15.4The [facility] Physician GroupComment on above:Performed By: #### CMP, CBC, [id number], JULIA, FE and TIBC #### [place] [address] USALymphocytes (Bld) [#/Vol]3.2 10*3/uLNormal1.00-4.8The [facility] Physician GroupComment on above:Performed By: #### CMP, CBC, [id number], JULIA, FE and TIBC #### [place] [address] USALymphocytes/100 WBC (Bld)23.5 %Normal.The [facility] Physician GroupComment on above:Performed By: #### CMP, CBC, [id number], JULIA, FE and TIBC #### [address]H (RBC) [Entitic mass]30.2 mhFpfwru38.7-34.3The [facility] Physician GroupComment on above:Performed By: #### CMP, CBC, [id number], JULIA, FE and TIBC #### [address]V (RBC) [Entitic vol]89.1 mRGipzjx03-904Uqo [facility] Physician GroupComment on above:Performed By: #### CMP, CBC, [id number], JULIA, FE and TIBC #### [place] [address] USAMean Corpuscular HGB Conc33.9 g/vNZccheg17.0-35.0The [facility] Physician GroupComment on above:Performed By: #### CMP, CBC, [id number], JULIA, FE and TIBC #### [place] [address] USAMonocytes (Bld) [#/Vol]1.1 10*3/uLHigh0.0-0.8The [facility] Physician GroupComment on above:Performed By: #### CMP, CBC, [id number], JULIA, FE and TIBC #### [place] [address] USAMonocytes/100 WBC (Bld)7.7 %Normal.[facility] Physician GroupComment on above:Performed By: #### CMP, CBC, [id number], JULIA, FE and TIBC #### [address] [place] [address] USANeutrophils (Bld) [#/Vol]9.2 10*3/uLHigh1.8-7.7The [facility] Physician GroupComment on above:Performed By: #### CMP, CBC, [id number], JULIA, FE and TIBC #### [facility] [address] [place] [address] USANeutrophils/100 WBC (Bld)67.1 %Normal.The [facility] Physician GroupComment on above:Performed By: #### CMP, CBC, [id number], JULIA, FE and TIBC #### [facility] [address] [place] [address] USANRBC%0.1 /100{WBC}Normal0-0.5[facility] Comment on above:Performed By: #### CMP, CBC, [id number], JULIA, FE and TIBC #### [facility] [address] [place] [address] USAPlatelet mean volume (Bld) [Entitic vol]7.8 fLNormal 6.3-10.7The [facility] Physician GroupComment on above:Performed By: #### CMP, CBC, [id number], JULIA, FE and TIBC #### [facility] [address] [place] [address] USAPlatelets (Bld) [#/Vol]370 10*3/sGUmarnz243-490Coz [facility] Physician GroupComment on above:Performed By: #### CMP, CBC, [id number], JULIA, FE and TIBC #### [facility] [address] [place] [address] USARBC (Bld) [#/Vol]4.07 10*6/uLNormal3.60-5.00The [facility] Physician GroupComment on above:Performed By: #### CMP, CBC, [id number], JULIA, FE and TIBC #### [facility] [address] [place] [address] USAWBC (Bld) [#/Vol]13.8 10*3/uLHigh3.8-11.6The [facility] Physician GroupComment on above:Performed By: #### CMP, CBC, [id number], JULIA, FE and TIBC #### [facility] [address] [place] [address] USAComprehensive Metabolic Panelon 99-99-3046Gyrblwj [Mass/Vol]3.7 g/dLNormal3.5-5.7The [facility] Physician GroupComment on above: Performed By: #### RPR W RFX #### [facility] , #### CBC #### [facility] [address] [place] [address] USAGFR/1.73 sq M.predicted MDRD (S/P/Bld) [Vol rate/Area] mL/min/{1.73_m2}NormalThe [facility]loop Memorial Hospital Physician GroupComment on above:Performed By: #### RPR W RFX #### [facility] , #### CBC #### [facility] [address] [place] [address] USACreatinine [Mass/volume] in Serum or PlasmaOrdered By: Pippa Lane on 26-38-2524Utipjybwip [Mass/Vol]Creatinine [Mass/volume] in Serum or PlasmaLow0.60-1.20[facility] HospitalCreatinine [Mass/Vol]0.51 mg/dLLow0.60-1.20[facility] HospitalComment on above:Performed By: #### RPR W RFX #### [facility] , #### CBC #### [facility] [address] [place] [address] USAEosinophils Auto (Bld) [#/Vol]Ordered By: Pippa Lane on 92-53-9330Vkodwozpttf (Bld) [#/Vol]Automated eosinophil count0.0-0.45 [facility] HospitalEosinophils/100 WBC Auto (Bld)Ordered By: Pippa Lane on 59-95-8488Mdiwofuwbcs/100 WBC (Bld)Automated eosinophil %. [facility] Jewish HospitalErythrocyte distribution width Auto (RBC) [Ratio]Ordered By: Pippa Lane on 96-25-1216Fuhjrgocloe distribution width (RBC) [Ratio]Erythrocyte distribution width [Ratio] by Automated count11.9-15.3 [facility] Jewish HospitalFerritinon 58-19-7952Kpuroqvb [Mass/Vol]36.2 ng/xMLreiof27.0-306.8The [facility] Physician GroupComment on above:Performed By: #### RPR W RFX #### [facility] , #### CBC #### [facility] [address] [place] [address] USAFerritin [Mass/volume] in Serum or PlasmaOrdered By: Pippa Lane on 54-01-6703Kuqyiqto [Mass/Vol]Ferritin [Mass/volume] in Serum or Wnbidz92.0-306.8[facility] Jewish HospitalFolate [Mass/volume] in Serum or PlasmaOrdered By: oliva Lane on 27-27-8020Lymvrq [Mass/Vol]Folate [Mass/volume] in Serum or Plasma>5.9[facility] Jewish HospitalComment on above:Folate reference range: >5.9 ng/mlThe WHO technical consultation on folate and vitamin a06fzaebmpwanve has determined that folate concentrations lessthan 4 ng/ml are considered deficient.Globulin Calc (S) [Mass/Vol]Ordered By: Pippa Coyle on 77-60-8600Oopczuqr (S) [Mass/Vol]Serum globulin measurement by calculation (mass/volume)[facility] HospitalGlucose [Mass/volume] in Serum or PlasmaOrdered By: oliva Lane on 68-22-5107Rtzqnow [Mass/Vol] Glucose [Mass/volume] in Serum or Xdmctj00-099GyxhtfdetMercy Health – The Jewish Hospital Comment on above:ADA recommended reference rangeRandom Glucose Reference Range is dependent on time and content of last meal. Glucose of more than 200 mg/dL in a nonstressed, ambulatory subject supports the diagnosisof Diabetes Mellitus. Glucose [Mass/Vol]80 mg/uUSqmbdb55-971UyvdvgnmzMercy Health – The Jewish HospitalComment on above:ADA recommended reference rangeRandom Glucose Reference Range is dependent on time and content of last meal. Glucose of more than 200 mg/dL in a nonstressed, ambulatory subject supports the diagnosisof Diabetes Mellitus. Result Comment: Random Glucose Reference Range is dependent on time and content of last meal. Glucose of more than 200 mg/dL in a nonstressed, ambulatory subject supports the diagnosis of Diabetes Mellitus. ADA recommended reference rangePerformed By: #### RPR W RFX #### [facility] , #### CBC #### [facility] [address] [place] [address] USAHematocrit Auto (Bld) [Volume fraction]Ordered By: Pippa Coyle on 27-36-3783Yhuanqmoju (Bld) [Volume fraction]Hematocrit [Volume Fraction] of Blood by Automated count34.0-46.4FAccess Hospital Dayton Hemoglobin [Mass/volume] in BloodOrdered By: Pippa Lane on 05-16-2024 Hemoglobin (Bld) [Mass/Vol]Hemoglobin [Mass/volume] in Blood11.8-15.4FAccess Hospital DaytonIron [Mass/volume] in Serum or PlasmaOrdered By: Pippa Coyle on 58-54-7619Ljje [Mass/Vol]Iron [Mass/volume] in Serum or Gvjnkf85-789 [facility] Jewish HospitalIron and TIBC Profileon 05-16-2024% Iron Xwchwirakw50.5 %Ygp85-87Tci [facility] Physician GroupComment on above:Performed By: #### RPR W RFX #### [facility] , #### CBC #### [facility] [address] [place] [address] USAIron [Mass/Vol]74 ug/kPUhewod12-615Mdh [facility] Physician GroupComment on above:Performed By: #### RPR W RFX #### [facility] , #### CBC #### [facility] [address] [place] [id number] USATotal Iron Binding Apsdxocz040 ug/dOMlok691-777Lxg [facility] Physician GroupComment on above:Performed By: #### RPR W RFX #### [facility] , #### CBC #### [facility] [address] [place] [address] USATransferrin [Mass/Vol]364 mg/vYIetl604-165Njm [facility] Physician GroupComment on above:Performed By: #### RPR W RFX #### [facility] , #### CBC #### [facility] [address] [place] [address] USALeukocytes [#/volume] corrected for nucleated erythrocytes in Blood by Automated counOrdered By: Pippa Lane on 59-07-9235MUK corrected for nucl RBC Auto (Bld) [#/Vol]Leukocytes [#/volume] corrected for nucleated erythrocytes in Blood by Automated counHigh3.8-11.6FAccess Hospital DaytonLymphocytes Auto (Bld) [#/Vol]Ordered By: Pippa Lane on 05-16-2024 Lymphocytes (Bld) [#/Vol]Lymphocytes [#/volume] in Blood by Automated count 1.00-4.8[facility] Jewish HospitalLymphocytes/100 WBC Auto (Bld)Ordered By: Pippa Lane on 48-28-9058Nomatmrfedq/100 WBC (Bld)Lymphocytes/100 leukocytes in Blood by Automated count.[facility] Auto (RBC) [Entitic mass]Ordered By: Pippa Lane on 92-98-0799BEX (RBC) [Entitic mass]MCH [Entitic mass] by Automated count24.7-34.3FMiami Valley HospitalHC Auto (RBC) [Mass/Vol]Ordered By: Pippa Lane on 99-18-3419YTYD (RBC) [Mass/Vol]MCHC [Mass/volume] by Automated count32.0-35.0[facility], Edwin ShawV Auto (RBC) [Entitic vol]Ordered By: Pippa Lane on 32-46-0252RIG (RBC) [Entitic vol]MCV [Entitic volume] by Automated vweal63-439 [facility] HospitalMonocytes Auto (Bld) [#/Vol]Ordered By: Pippa Coyle on 86-83-9426Kefpzgxql (Bld) [#/Vol]Automated blood monocyte countHigh 0.0-0.8[facility] HospitalMonocytes/100 WBC Auto (Bld)Ordered By: oliva Lane on 87-92-7702Yltnkafea/100 WBC (Bld)Automated monocyte %. [facility] Jewish HospitalNeutrophils Auto (Bld) [#/Vol]Ordered By: oliva Lane on 34-70-9706Iypfcwejnzu (Bld) [#/Vol]Neutrophils [#/volume] in Blood by Automated countHigh1.8-7.7FAccess Hospital DaytonNeutrophils/100 WBC Auto (Bld)Ordered By: oliva Lane on 36-86-4261Vyziyawzxgp/100 WBC (Bld) Automated neutrophil %.[facility] HospitalNo Panel Information Ordered By: Pippa Lane on 35-39-6534Fcfhoxdzj GFR (CKD-EPI)> 60.0 mL/Min [facility] HospitalPharmacy Creatinine Clearance (ChemN/[facility] CampusNucleated erythrocytes [Presence] in Blood by Automated countOrdered By: Pippa Lane on 30-52-8807Zbrfdephd RBC Auto Ql (Bld) Nucleated erythrocytes [Presence] in Blood by Automated count0-0.5FAccess Hospital DaytonPlatelet mean volume Auto (Bld) [Entitic vol]Ordered By: Pippa Lane on 38-63-9996Cbecdmjb mean volume (Bld) [Entitic vol]Platelet mean volume [Entitic volume] in Blood by Automated count6.3-10.7FAccess Hospital DaytonPlatelets Auto (Bld) [#/Vol]Ordered By: Pippa Lane on 48-52-7455Lkklnoaoj (Bld) [#/Vol]Platelets [#/volume] in Blood by Automated wonzk576-368AphiiczwwMercy Health – The Jewish HospitalPotassium [Moles/volume] in Serum or PlasmaOrdered By: Pippa Lane on 39-38-3025Fsthoqrnk [Moles/Vol]Potassium [Moles/volume] in Serum or Plasma3.5-5.1FAccess Hospital Dayton Potassium [Moles/Vol]3.8 mmol/LNormal3.5-5.1FAccess Hospital Dayton Comment on above:Performed By: #### RPR W RFX #### [facility] , #### CBC #### [facility] [address] [place] [id number] USAProtein [Mass/volume] in Serum or PlasmaOrdered By: oliva Lane on 47-98-1477Mspmzlb [Mass/Vol]Protein [Mass/volume] in Serum or PlasmaLow6.4-8.9[facility] HospitalProtein [Mass/Vol]6.3 g/dLLow 6.4-8.9[facility] Jewish HospitalComment on above:Performed By: #### RPR W RFX #### [facility] , #### CBC #### [facility] [address] [place] [id number] USARBC Auto (Bld) [#/Vol]Ordered By: oliva Lane on 99-32-9317XYZ (Bld) [#/Vol]Erythrocytes [#/volume] in Blood by Automated count 3.60-5.00Samaritan Hospitalerum globulin measurement by calculation (mass/volume)Ordered By: Pippa Lane on 22-44-9604Xlcavrin (S) [Mass/Vol]2.6 g/dLNormalMercy Health – The Jewish HospitalComment on above: Performed By: #### RPR W RFX #### [facility] , #### CBC #### [facility] [address] [place] [id number] USASerum or plasma albumin/globulin mass ratioOrdered By: Pippa Lane on 69-52-5609Fktqkfp/Globulin [Mass ratio]Serum or plasma albumin/globulin mass ratioMercy Health – The Jewish HospitalAlbumin/Globulin [Mass ratio]1.4 {ratio}NormalMercy Health – The Jewish HospitalComment on above: Performed By: #### RPR W RFX #### [facility] , #### CBC #### [facility] [address] [place] [address] USASerum or plasma anion gap determinationOrdered By: Pippa Coyle on 26-89-4446Wtdfr gap [Moles/Vol]Serum or plasma anion gap determination6.0-15.0[facility] Jewish HospitalAnion gap [Moles/Vol]9.8 mmol/LNormal6.0-15.0[facility] HospitalComment on above:Performed By: #### RPR W RFX #### [facility] , #### CBC #### [facility] [address] [place] [address] USASerum or plasma iron binding capacity measurement (mass/volume)Ordered By: Pippa Lane on 07-26-6466Xhps binding capacity [Mass/Vol]Iron binding capacity [Mass/volume] in Serum or BogtrhFltl666-979 [facility]itan Hospitalerum or plasma iron saturation measurement (mass fraction)Ordered By: Pippa Lane on 27-72-1871Bgxl saturation [Mass fraction]Iron saturation [Mass Fraction] in Serum or DbeomzCpn60-72OjmhazpanSamaritan Hospitalodium [Moles/volume] in Serum or PlasmaOrdered By: Pippa Lane on 57-51-6413Imwwlh [Moles/Vol]Sodium [Moles/volume] in Serum or Xukrxb857-533XlilgmosbSamaritan Hospitalodium [Moles/Vol]138 mmol/LNormal 136-145[facility] HospitalComment on above:Performed By: #### RPR W RFX #### [facility] , #### CBC #### [facility] [address] [place] [address] USATransferrin [Mass/volume] in Serum or PlasmaOrdered By: Pippa Lane on 60-87-6212Izkrlggrbig [Mass/Vol]Transferrin [Mass/volume] in Serum or BawaliFkht240-409ZvvneemnxMercy Health – The Jewish HospitalUrea nitrogen [Mass/volume] in Serum or PlasmaOrdered By: Pippa Lane on 04-10-7936Nbmk nitrogen [Mass/Vol]Urea nitrogen [Mass/volume] in Serum or Plasma09-08[facility] Jewish HospitalUrea nitrogen [Mass/Vol]7 mg/dLNormal09-08[facility] Jewish HospitalComment on above:Performed By: #### RPR W RFX #### [facility] , #### CBC #### [facility] [address] [place] [address] USAVit. B12/Folate Profileon 53-00-0490Libbgqxqd (Vitamin B12) [Mass/Vol]241 pg/kQPmmvhk503-059Svf [facility] Physician GroupComment on above:Performed By: #### RPR W RFX #### [facility] , #### CBC #### [facility] [address] [place] [address] FWAOtdvbn30.0 ng/mLNormal>5.9The [facility] Comment on above:Result Comment: Folate reference range: >5.9 ng/ml The WHO technical consultation on folate and vitamin b12 deficiencies has determined that folate concentrations less than 4 ng/ml are considered deficient. PERFORMED BY: [place] [address] PATHOLOGIST [employer] FAN GALEAS M.D.Performed By: #### RPR W RFX #### [facility] , #### CBC #### [facility] [address] [place] [address] USAVitamin B12 ser/plasOrdered By: Pippa Lane on 46-98-1031Aymsemfji (Vitamin B12) [Mass/Vol]Vitamin B12 ser/hrhc727-093EkqhqfgbkMercy Health – The Jewish HospitalWBC Auto (Bld) [#/Vol]Ordered By: Pippa Lane on 86-24-1167SNL (Bld) [#/Vol]Leukocytes [#/volume] in Blood by Automated countHigh 3.8-11.6FAccess Hospital DaytonNo Panel Informationon 04-04-2024 Glucose, UANegativeNegative - 1999(110) ++++ mg/dLNOMS HealthcareProtein, UA NegativeNegative - 1999(20) ++++ mg/dLNOMS Fairfield Medical CenterNOND HealthcareNo Panel Informationon 89-15-4374Swaukhg, UANegativeNegative - 2000(110) ++++ mg/dLNOMS HealthcareProtein, UANegativeNegative - 1999(20) ++++ mg/dLNOSalem Memorial District Hospital HealthcareBasophils Auto (Bld) [#/Vol]Ordered By: Pippa Lane on 02-14-2024 Basophils (Bld) [#/Vol]Automated basophil count0.0-0.2FAccess Hospital DaytonBasophils/100 WBC Auto (Bld)Ordered By: oliva Lane on 02-14-2024 Basophils/100 WBC (Bld)Automated basophil %.[facility] Complete Blood Count Auto Diffon 73-49-9829Prdlolyuh (Bld) [#/Vol]0.1 10*3/uL Normal0.0-0.2The [facility] Physician GroupComment on above:Result Comment: PERFORMED BY: [place] [address] PATHOLOGIST [employer] FAN GALEAS M.D.Performed By: #### RPR W RFX #### [facility] , #### CBC #### [facility] [address] [place] [address] USABasophils/100 WBC (Bld)0.5 %Normal.The [facility] Physician GroupComment on above:Performed By: #### RPR W RFX #### [facility] , #### CBC #### [facility] [address] [place] [address] USAEosinophils (Bld) [#/Vol]0.1 10*3/uLNormal0.0-0.45The [facility] Physician GroupComment on above:Performed By: #### RPR W RFX #### [facility] , #### CBC #### [facility] [address] [place] [address] USAEosinophils/100 WBC (Bld)1.0 %Normal.The [facility] Physician GroupComment on above:Performed By: #### RPR W RFX #### [facility] , #### CBC #### [facility] [address] [place] [address] USAErythrocyte distribution width (RBC) [Ratio]12.6 %Normal 11.9-15.3The [facility] Physician GroupComment on above:Performed By: #### RPR W RFX #### [facility] , #### CBC #### [place] [address] USAHematocrit (Bld) [Volume fraction]39.3 %Hhcqfv57.0-46.4The [facility] Physician GroupComment on above:Performed By: #### RPR W RFX #### [facility] , #### CBC #### [facility] [address] [place] [address] USAHemoglobin (Bld) [Mass/Vol]13.3 g/xKVpofkr02.8-15.4The [facility] Physician GroupComment on above:Performed By: #### RPR W RFX #### [facility] , #### CBC #### [facility] [address] [place] [address] USALymphocytes (Bld) [#/Vol]3.5 10*3/uLNormal1.00-4.8The [facility] Physician GroupComment on above:Performed By: #### RPR W RFX #### [facility] , #### CBC #### [facility] [address] [place] [address] USALymphocytes/100 WBC (Bld)25.0 %Normal.The [facility] Physician GroupComment on above:Performed By: #### RPR W RFX #### [facility] , #### CBC #### [facility] [address] [place], [place] [address]H (RBC) [Entitic mass]29.8 cbRqxcag72.7-34.3The [facility] Physician GroupComment on above:Performed By: #### RPR W RFX #### [facility] , #### CBC #### [facility] [address] [place], [place] [address]V (RBC) [Entitic vol]87.8 oYIsdmjk41-355Vgt [facility] Physician GroupComment on above:Performed By: #### RPR W RFX #### [facility] , #### CBC #### [place] [address] USAMean Corpuscular HGB Conc33.9 g/yGBrxmev20.0-35.0The [facility] Physician GroupComment on above:Performed By: #### RPR W RFX #### [facility] , #### CBC #### [place] [address] USAMonocytes (Bld) [#/Vol]1.1 10*3/uLHigh0.0-0.8The [facility] Physician GroupComment on above:Performed By: #### RPR W RFX #### [facility] , #### CBC #### [facility] [address] [place] [address] USAMonocytes/100 WBC (Bld)7.7 %Normal.The [facility] Physician GroupComment on above:Performed By: #### RPR W RFX #### [facility] , #### CBC #### [facility] [address] [place] [address] USANeutrophils (Bld) [#/Vol]9.2 10*3/uLHigh1.8-7.7The [facility] Physician GroupComment on above:Performed By: #### RPR W RFX #### [facility] , #### CBC #### [facility] [address] [place] [address] USANeutrophils/100 WBC (Bld)65.8 %Normal.[facility] Physician GroupComment on above:Performed By: #### RPR W RFX #### [facility] , #### CBC #### [facility] [address] [place] [address] USANRBC%0.1 /100{WBC}Normal0-0.5[facility] Comment on above:Performed By: #### RPR W RFX #### [facility] , #### CBC #### [facility] [address] [place] [address] USAPlatelet mean volume (Bld) [Entitic vol]7.3 fLNormal 6.3-10.7The [facility] Physician GroupComment on above:Performed By: #### RPR W RFX #### [facility] , #### CBC #### [facility] [address] [place] [address] USAPlatelets (Bld) [#/Vol]422 10*3/yYQbueyx308-698Vbx [facility] Physician GroupComment on above:Performed By: #### RPR W RFX #### [facility] , #### CBC #### [facility] [address] [place] [address] USARBC (Bld) [#/Vol]4.47 10*6/uLNormal3.60-5.00The [facility] Physician GroupComment on above:Performed By: #### RPR W RFX #### [facility] , #### CBC #### [facility] [address] [place] [address] USAWBC (Bld) [#/Vol]14.0 10*3/uLHigh3.8-11.6The [facility] Physician GroupComment on above:Performed By: #### RPR W RFX #### [facility] , #### CBC #### [facility] [address] [id number] USAEosinophils Auto (Bld) [#/Vol]Ordered By: Pippa Lane on 90-06-3551Syyxljooaqp (Bld) [#/Vol]Automated eosinophil count0.0-0.45 [facility] HospitalEosinophils/100 WBC Auto (Bld)Ordered By: oliva Lane on 08-92-6903Tswajgpibuk/100 WBC (Bld)Automated eosinophil %. [facility] HospitalErythrocyte distribution width Auto (RBC) [Ratio]Ordered By: oliva Lane on 90-51-2901Kyxxgijzwyp distribution width (RBC) [Ratio]Erythrocyte distribution width [Ratio] by Automated count11.9-15.3 [facility] HospitalFerritinon 43-04-7554Ejtvctso [Mass/Vol]52.7 ng/zYIjnfjv11.0-306.8The [facility] Physician GroupComment on above:Result Comment: PERFORMED BY: [place] [address] PATHOLOGIST BATHING SUIT MAKER FAN GALEAS M.D.Performed By: #### CMP, URIC #### [facility] [address] [place] [address] USAFerritin [Mass/volume] in Serum or PlasmaOrdered By: oliva Lane on 41-53-1721Esvmxrke [Mass/Vol]Ferritin [Mass/volume] in Serum or Bklngs52.0-306.8[facility] HospitalHematocrit Auto (Bld) [Volume fraction]Ordered By: Pippa Lane on 64-26-6983Xoorkbzbax (Bld) [Volume fraction]Hematocrit [Volume Fraction] of Blood by Automated count34.0-46.4 [facility] HospitalHemoglobin [Mass/volume] in BloodOrdered By: Pippa Lane on 92-22-2329Osjeaafksg (Bld) [Mass/Vol]Hemoglobin [Mass/volume] in Blood11.8-15.4FAccess Hospital DaytonIron [Mass/volume] in Serum or PlasmaOrdered By: Pippa Lane on 45-35-4489Pfzg [Mass/Vol]Iron [Mass/volume] in Serum or Axyvwk21-321LwbzlltdoMercy Health – The Jewish HospitalIron and TIBC Profile on 02-14-2024% Iron Dbqtgqmkbn67.1 %Bml82-15Gdn [facility] Physician GroupComment on above:Performed By: #### RPR W RFX #### [facility] , #### CBC #### [facility] [address] [place] [address] USAIron [Mass/Vol]76 ug/uNGenpwa79-687Unc [facility] Physician GroupComment on above:Performed By: #### RPR W RFX #### [facility] , #### CBC #### [facility] [address] [id number] USATotal Iron Binding Hgtzinbj899 ug/tXGrkscs360-326Caj [facility] GroupComment on above:Performed By: #### RPR W RFX #### [facility] , #### CBC #### [facility] [address] [place] [address] USATransferrin [Mass/Vol]318 mg/uMNwzyez850-333Kkn [facility] Physician GroupComment on above:Performed By: #### RPR W RFX #### [facility] , #### CBC #### [facility] [address] [place] [address] USALeukocytes [#/volume] corrected for nucleated erythrocytes in Blood by Automated counOrdered By: Pippa Lane on 11-19-8234MQA corrected for nucl RBC Auto (Bld) [#/Vol]Leukocytes [#/volume] corrected for nucleated erythrocytes in Blood by Automated counHigh3.8-11.6FAccess Hospital DaytonLymphocytes Auto (Bld) [#/Vol]Ordered By: Pippa Lane on 02-14-2024 Lymphocytes (Bld) [#/Vol]Lymphocytes [#/volume] in Blood by Automated count 1.00-4.8[facility] Jewish HospitalLymphocytes/100 WBC Auto (Bld)Ordered By: Pippa Lane on 34-02-3460Dogtsutmqau/100 WBC (Bld)Lymphocytes/100 leukocytes in Blood by Automated count.[facility] Edwin ShawH Auto (RBC) [Entitic mass]Ordered By: Pippa Lane on 36-54-3933KPI (RBC) [Entitic mass]MCH [Entitic mass] by Automated count24.7-34.3FAccess Hospital DaytonMCHC Auto (RBC) [Mass/Vol]Ordered By: Pippa Lane on 69-12-0082JKVR (RBC) [Mass/Vol]MCHC [Mass/volume] by Automated count32.0-35.0[facility] Jewish HospitalMCV Auto (RBC) [Entitic vol]Ordered By: Pippa Lane on 95-37-4999TSR (RBC) [Entitic vol]MCV [Entitic volume] by Automated -196 [facility] HospitalMonocytes Auto (Bld) [#/Vol]Ordered By: Pippa Coyle on 74-12-3533Flccbmvgm (Bld) [#/Vol]Automated blood monocyte countHigh 0.0-0.8[facility] HospitalMonocytes/100 WBC Auto (Bld)Ordered By: Pippa Lane on 72-07-9160Dzotsrlvu/100 WBC (Bld)Automated monocyte %. [facility] HospitalNeutrophils Auto (Bld) [#/Vol]Ordered By: Pippa De La O-Leonides on 75-87-8866Shdwwjxqmkb (Bld) [#/Vol]Neutrophils [#/volume] in Blood by Automated countHigh1.8-7.7FAccess Hospital DaytonNeutrophils/100 WBC Auto (Bld)Ordered By: Pippa Lane on 41-93-8435Rfnlewbkfqp/100 WBC (Bld) Automated neutrophil %.[facility] HospitalNucleated erythrocytes [Presence] in Blood by Automated countOrdered By: Pippa Lane on 02-14-2024 Nucleated RBC Auto Ql (Bld)Nucleated erythrocytes [Presence] in Blood by Automated count0-0.5FAccess Hospital DaytonPlatelet mean volume Auto (Bld) [Entitic vol]Ordered By: Pippa Lane on 01-17-4105Ihzwfqav mean volume (Bld) [Entitic vol]Platelet mean volume [Entitic volume] in Blood by Automated count6.3-10.7FAccess Hospital DaytonPlatelets Auto (Bld) [#/Vol] Ordered By: Pippa Lane on 21-98-5737Sjnirkxoz (Bld) [#/Vol]Platelets [#/volume] in Blood by Automated pjuaa740-895ElbihgvdzMercy Health – The Jewish Hospital RBC Auto (Bld) [#/Vol]Ordered By: Pippa Lane on 92-27-3600HVQ (Bld) [#/Vol] Erythrocytes [#/volume] in Blood by Automated count3.60-5.00Samaritan Hospitalerum or plasma iron binding capacity measurement (mass/volume) Ordered By: Pippa Lane on 91-97-4038Fhcp binding capacity [Mass/Vol]Iron binding capacity [Mass/volume] in Serum or Qlltmd070-084EdejqmofzSamaritan Hospitalerum or plasma iron saturation measurement (mass fraction)Ordered By: Pippa Lane on 26-39-7110Lsmn saturation [Mass fraction]Iron saturation [Mass Fraction] in Serum or MlqwrzKjf71-64FgynnwhrrMercy Health – The Jewish Hospital Transferrin [Mass/volume] in Serum or PlasmaOrdered By: Pippa Lane on 07-94-5845Meditgapcgb [Mass/Vol]Transferrin [Mass/volume] in Serum or Plasma 203-362Mer[facility] The Jewish HospitalWBC Auto (Bld) [#/Vol]Ordered By: Pippa Lane on 49-14-5986JNK (Bld) [#/Vol]Leukocytes [#/volume] in Blood by Automated countHigh3.8-11.6FAccess Hospital DaytonCNNURSEon 12-17-2024 CNNURSENurse Visit (REIAV) DANELLE GUIDO ([id number]) 89 F Date Time Provider Department 02/01/24 10:30 AM US TECH 1 [facility] REJ REIAV During your visit today, we recorded the following information about you: Jessica Ortega MD 02/01/2024 10:38 AM Signed Patient is here for ultrasound. Please see image section in Epic for results. MD Min Kelly Lauren, APRN.PRACTICAL NURSING TEACHER 02/01/2024 4:57 PM Signed Danelle Brown Guido here today for a scan. This [...] Plan Move on to OB Ynes Chang APRN.PRACTICAL NURSING TEACHER February 01, 2024 4:55 PM Referring Provider: SARA CAMPBELL [[id number]] Allergies As of Date: 02/01/2024 (No Known Allergies) Date Reviewed: 01/21/2024 Reviewed by: Sara Campbell APRN.PRACTICAL NURSING TEACHER - Fully Assessed Visit Diagnosis:Early stage of [Z34.90] Order(s):OBSTETRIC ULTRASOUND [facility] [[id number]] Order #: [id number]. #:[id number]: 1 Prescriptions as of 02/01/2024 - ferrous sulfate (IRON) 325 mg (65 mg iron) tablet Take 1 tablet by mouth two times a day. - Eywhtyks-Yk-Boz-Fe-FA tab Take 1 tablet by mouth once daily. - metFORMIN (GLUCOPHAGE) 500 mg tablet One tablet three times daily with meals. - sertraline (ZOLOFT) 25 mg tablet Take 25 mg by mouth. Problem List As Of Date 02/01/2024 Noted Resolved Obesity, Class I, BMI 30-34.9 [E66.811] 12/14/2023 Encounter Status:Closed by JESSICA FELIZ on 02/01/24NormalCPomerene HospitalB-HCG SerPl-aCncon 16-26-4817OCZ.beta subunit Em5536.0 m[IU]/mL High<5.0[facility] on above:Order Comment: Specimen Type: BLOOD SPECIMENOrdering Facility: [facility] Address:[address] [place], [place] [address]Result Comment: QUANTITATIVE HCG NORMAL RANGES Weeks of Gestation (Weeks Since LMP) 3 Weeks (5.8-71.2 mIU/mL) 4 Weeks (9.5-750 mIU/mL) 5 Weeks (217-7138 mIU/mL) 6 Weeks (158-15010 mIU/mL) 7 Weeks (3697-504558 mIU/mL) 8 Weeks (68613-041341 mIU/mL) 9 Weeks (32680-893636 mIU/mL) 10 Weeks (35197-455460 mIU/mL) 12 Weeks (13021-943532 mIU/mL) Referenced to 4th IS of NIBSCPerformed By: #### 04065-1 ####[facility] LABCLIA [id number] ZULEIKAOliva HCA FLOR[facility] HIGHLANDS HOSPITALKeena O69OKVWMWFKH[address] [place] [address] [place] Uterus and Fallopian tubes W saline IUon 12-22-2023 Indication fertility testing [...] Fawn Parrish RDMS Read By: Jessica Ortega M.D.MATERNAL MEDICINELancaster Municipal Hospital 25(OH)D3 [facility] 62-59-069441542811-wunocipnetkkyw D3 [Mass/Vol]28.2 ng/mLLow 31.0-80.0[facility]c Medical CenterComapex medical center on above:Order Comment: Specimen Type: BLOOD SPECIMENOrdering Facility: [facility] Address:[address] [place], [place] [address]Result Comment: Classification of 25 [place] Vitamin D status: Deficiency/Insufficiency: < or = 30 ng/ml. Sufficiency/Optimal Levels: 31-80 ng/mL Toxicity: > 100 ng/mL. Test performed by chemiluminescent immunoassay.Performed By: #### 1989-3 ####[facility] LABCLIA [id number] [facility] [id number] [place], [place] [address]OVon 49-88-7533PPIWPusvbe Visit (REIBD) DANELLE GUIDO ([id number]) 89 F Date Time Provider Department 12/21/23 10:45 AM JESSICA ORTEGA During your visit today, we recorded the following information about you: Weight Height Last Period 80.7 kg 1.6 m 12/12/23 Sara Campbell, MIXER MACHINE FEEDER.PRACTICAL NURSING TEACHER 12/23/2023 7:30 AM Signed Phillal Guido is a 23 year old here for SIS. Referred by: Barbara Matos [address] [address] Chief Complaint: SIS LMP: Patient's last menstrual [...] retained foreign bodies accounted for. Sara Campbell APRN.PRACTICAL NURSING TEACHER PROCEDURE: EXTERNAL GENITALIA: Normal in appearance without [...] Julianne River MD Referring Provider: BARBARA MATOS [[id number]] Allergies As of Date: 12/21/2023 (No Known Allergies) Date Reviewed: 12/21/2023 Reviewed by: Tessa Koch MA - Fully Assessed Reason for Visit: SIS [Other] Primary Visit Diagnosis:Fertility testing [Z31.41] Other Visit Diagnosis:Pre-procedural laboratory examination [Z01.812] Order(s):SONOHYSTEROGRAPHY (SIS) [facility] [[id number]] Order #: [id number]. #:[id number]: 1 HCG QUAL UR B/O [[id number]] Order #: [id number] Prescriptions as of 12/23/2023 - metFORMIN (GLUCOPHAGE) 500 mg tablet One tablet three times daily with meals. - sertraline (ZOLOFT) 25 mg tablet Take 25 mg by mouth. Problem List As Of Date 12/21/2023 Noted Resolved Obesity, Class I, BMI 30-34.9 [E66.811] 12/14/2023 Encounter Status:Closed by JESSICA FELIZ on 12/23/23NormalCMercy Memorial Hospital QUAL UR B/OOrdered By: Tessa Koch on 14-89-9057Ohbnfpmft statusNegativeneg - posCleohio valley hospital ClinicQuality CheckYesyes/noCWexner Medical Center SerPl-aCncon 89-03-8674NBB Qn1.060 m[IU]/LNormal0.270-4.200 [facility] on above:Order Comment: Specimen Type: BLOOD SPECIMENOrdering Facility: [facility] Address:[address] [place], [place] [address]Result Comment: If the patient is , TSH reference range varies by gestational period: First Trimester (weeks 9-12): 0.180-2.990 mIU/L Second Trimester: 0.110-3.980 mIU/L Third Trimester: 0.480-4.710 mIU/L Sidney Peralta et al. A Practical Approach for the Verifications and Determination of Site- and Trimester-Specific Reference Intervals for Thyroid Function tests in . Thyroid, 2019:29:3:412-420.Vincenzo Roblero, et al. 2017 Guidelines of the [place] Thyroid Association for the Diagnosis and Management of Thyroid Disease during and the . Thyroid, 2017:27:3:315-389. Performed By: #### 3016-3 ####[facility] [id number] [place] [address] [place] US Uterus and Fallopian tubes W saline IUon 61-40-6457Cffkpxkrm Study observation (narrative)[facility] HospitalWHIIVF ANTI MULLERIAN HORMONEon 00-37-7993Lvqtuuwpw inhibiting substance [Mass/Vol]5.33 ng/mLNormal1.22-11.70 [facility] on above:Order Comment: Specimen Type: BLOOD SPECIMENOrdering Facility: [facility] Address:[address] [place], [place] [address]Performed By: #### SQAMHIVF ####[facility] CENTERIA [id number] [address] STATES OF [id number] [id number] ID: [id number] Author: MARINA ARTHUR MD Service: ? Author Type: Physician Type: Filed: 12/14/2023 08:59 Note Text: Summary: IUI Treatment Plan: IUI #1 DANIEL IUI Treatment Plan: Tubal Patency Testing: HSG date: 2023 within normal limits Sperm Source:Partner Fresh Treatment Protocol: Letrozole dose 2.5 mg CD 2-6 Monitoring Plan: Ultrasound monitoring CD 10-12 Ovidrel Trigger: Yes Supplemental Progesterone: None Comments: None Marina Arthur MD 12/14/2023NormalCcleveland clinic avon hospitaland [facility]. trachomatis+N. gonorrhoeae DNA JEFF+probe Ql (Unsp spec)on 12-14-2023. trachomatis rRNA JEFF+probe Ql (Unsp spec)NegativeNegative for Chlamydia trachomatis by amplificatoMemorial Health System [facility] Interpretation and review of laboratory resultsNormalCcleveland clinic avon hospitaland Aitkin HospitalN. gonorrhoeae rRNA JEFF+probe Ql (Unsp spec)NegativeNegative for Neisseria gonorrhoeae by amplificationLancaster Municipal HospitalFor screening asymptomatic women, a vaginal swab specimen(APTIMA vaginal swab 151818) is optimal. Urine specimens have reduced sensitivity for Chlamydia trachomatis or Neisseria gonorrhoeae infectionin female patients without symptoms.St. [facility] Medical CenterHBV core Ab Ql (S)on 05-16-0989Rtfxcnhqmyronc and review of laboratory results NormalSt. Mary's Medical CenterHBV surface Ag Ql (S)on 12-14-2023 Interpretation and review of laboratory resultsNormalCBellevue HospitalHCV Ab Ql (S)on 82-72-2914Nfotvbhsdgzfvp and review of laboratory results NormalSt. Mary's Medical CenterHEPATITIS B CORE ANTIBODY TOTALon 91-23-4566QZY core Ab Ql (S)NegativeNegativeWadsworth-Rittman Hospitalment on above:No evidence of current or past infection with Hepatitis B virus. Should recent infection be suspected, repeat testing may be considered 3-4 weeks after this draw.HEPATITIS B SURFACE ANTIGENon 59-20-9528HWC surface Ag Ql (S)Negative NegativeLancaster Municipal HospitalHEPATITIS C ANTIBODY IA WITH CONFIRMATIONon 12-14-2023 HCV Ab Ql (S)NegativeNegativeWadsworth-Rittman Hospitalment on above:The result suggests no evidence of active infection with Hepatitis C virus. Should recent infectionbe suspected, repeat testing may be considered 4-6 weeks after this draw.HIV 1+2 Ab IA Qlon 04-17-1543VZU 1 and 2 Ab IA.rapid Nom (S/P/Bld)[facility] HospitalComapex medical center on above:Test not indicated.HIV 1+2 Ab+HIV1 p24 Ag IA Ql Non-ReactiveNonreactiveRegency Hospital Company immunoassay testing algorithm interpretation (S/P/Bld) [Interp][facility] HospitalComapex medical center on above:No evidence of HIV-1 or HIV-2 infection. Should recent infection be suspected, repeat testing may be considered 2-3 weeks after this draw. [place] Rev. Code 3701.243(E): This information has been disclosed to you from confidential records protected from disclosure by state law. You shall make no further disclosure of this information without the specific, written, and informed release of the individual to whom it pertains or as otherwisepermitted by state law. A general authorization for the release of medical or other information is not sufficient for the purpose of the release of HIV test results or diagnoses. [facility] Municipal HospitalHbA1c (Bld)on 10-81-3000Yskimce glucose Estimated from glycated hemoglobin (Bld) [Mass/Vol]105 mg/dLOhioHealth Pickerington Methodist Hospital on above:eAG: (Estimated average glucose) is a calculated value from HgbA1c and is national account representative of the average blood glucose level in the last 2-3 month period. HbA1c (Bld) [Mass fraction]5.3 %4.3 - 5.6 %[facility] on above: [place] Diabetes Association guidelines indicate that patients with HgbA1c in the range 5.7-6.4% are at increased risk for development of diabetes, and intervention by lifestyle modification may be beneficial. HgbA1c greater or equal to 6.5% is considered diagnostic of diabetes.Macedo ClinicReagin and Treponema pallidum IgG and IgM [Interp]on 12-14-2023T. pallidum IgG+IgM IA Ql (S)Non-ReactiveNonreactiveAvita Health System Galion HospitalYPHILIS TREPONEMAL W/REFLEXon 49-95-8427Tpfcuh and Treponema pallidum IgG and IgM [Interp]Cannot exclude recent Treponemal infection if specimen collected within 7-10 days after appearance of suspect lesions or 2-3 weeks after an exposure. Clinical correlation is required.[facility]. trachomatis+N. gonorrhoeae DNA JEFF+probe Ql (Unsp spec)on 12-13-2023. trachomatis rRNA JEFF+probe Ql (Unsp spec)NegativeNormalNegative for Chlamydia trachomatis by amplificatoProMedica Defiance Regional Hospital on above:Order Comment: Specimen Type: URINE SPECIMENOrdering Facility: [facility] Address:[address] [place], [place] [address]Performed By: #### 29331-4 ####[facility] LABCLIA [id number] [address] gonorrhoeae rRNA JEFF+probe Ql (Unsp spec)NegativeNormalNegative for Neisseria gonorrhoeae by amplificationOhioHealth Riverside Methodist Hospital on above:Order Comment: Specimen Type: URINE SPECIMENOrdering Facility: [facility] Address:[address] [place], [place] [address]Performed By: #### 56006-3 ####[facility] LABCLIA [id number] [address] STATES OF AMERICACARRIER SCREEN, EXPANDEDon 61-32-1943HAUTWYJ SCREEN RESULTSView results in Scanned Documents link when available.NormalOhioHealth Riverside Methodist Hospital on above:Order Comment: Specimen Type: BLOOD SPECIMENOrdering Facility: [facility] Address:[address] [place], [place] [address]Performed By: #### CRSNEX ####MYRIADCLIA [id number] [place], [place] [address]RJF panel Auto (Bld)on 02-29-4884Yxdicmvaalf distribution width (RBC) [Ratio]12.2 %11.5 - 15.0 %[facility] HospitalHematocrit (Bld) [Volume fraction]40.3 %36.0 - 46.0 %[facility] HospitalHemoglobin (Bld) [Mass/Vol]13.6 g/dL11.5 - 15.5 g/dLLancaster Municipal Hospital Interpretation and review of laboratory resultsAbnormalCGreen Cross HospitalH (RBC) [Entitic mass]29.8 pg26.0 - 34.0 pgClevelSt. Mary's Medical CenterHC (RBC) [Mass/Vol]33.7 g/dL30.5 - 36.0 g/dLTuscarawas HospitalV (RBC) [Entitic vol]88.2 fL80.0 - 100.0 fLClevelfirsthealth moore regional hospital ClinicNucleated RBC (Bld) [#/Vol]NINFClevelfirsthealth moore regional hospital ClinicPlatelet mean volume (Bld) [Entitic vol]8.9 fLLow9.0 - 12.7 fLCregency hospital cleveland east ClinicPlatelets (Bld) [#/Vol]410 10*3/uLHighLancaster Municipal HospitalRBC (Bld) [#/Vol]4.57 10*6/uL3.90 - 5.20 m/uLLancaster Municipal HospitalWBC (Bld) [#/Vol]10.63 10*3/uLSt. Mary's Medical CenterErythrocyte distribution width (RBC) [Ratio]12.2 %Lxdszi26.5-15.0Uc Medical CenterComapex medical center on above:Order Comment: Specimen Type: BLOOD SPECIMENOrdering Facility: [facility] Address:[address] [place], [place] [address]Performed By: #### 03558-0 ####[facility] LABCLIA [id number] [address] OF [facility] OHIOHematocrit (Bld) [Volume fraction]40.3 %Lqmpnl16.0-46.0[facility] on above:Order Comment: Specimen Type: BLOOD SPECIMENOrdering Facility: [facility] Address:[address] [place] [address] Performed By: #### 48938-3 ####[facility] LABCLIA [id number] [address] [id number] [facility] CENTERHemoglobin (Bld) [Mass/Vol]13.6 g/aQCyfziq95.5-15.5CKettering Health Hamilton on above:Order Comment: Specimen Type: BLOOD SPECIMENOrdering Facility: [facility] Address:[address] [place], [place] [address]Performed By: #### 87612-0 ####[facility] LABCLIA [id number] [place] [id number] [facility] CENTERH (RBC) [Entitic mass]29.8 uiPiubpx71.0-34.0[facility] on above:Order Comment: Specimen Type: BLOOD SPECIMENOrdering Facility: [facility] Address:[address] [place], [place] [address]Performed By: #### 86396-8 ####[facility] LABCLIA [id number] [place] [id number] [facility] CENTERHC (RBC) [Mass/Vol]33.7 g/dL Bqbpmy60.5-36.0[facility] on above:Order Comment: Specimen Type: BLOOD SPECIMENOrdering Facility: [facility] Address:[address] [place], [place] [address]Performed By: #### 58355-0 ####[facility] LABCLIA [id number] [place] [id number] [facility] MEDICAL CENTERV (RBC) [Entitic vol]88.2 sOCiwiwm44.0-100.0[facility] on above:Order Comment: Specimen Type: BLOOD SPECIMENOrdering Facility: [facility] Address:[address] [place], [place] [address]Performed By: #### 04641-9 ####[facility] LABCLIA [id number] [place] [id number] [facility] RBC (Bld) [#/Vol] 10*3/uLNormal<0.01[facility] on above:Order Comment: Specimen Type: BLOOD SPECIMENOrdering Facility: [facility] Address:[address] [place], [place] [address]Performed By: #### 50551-3 ####[facility] LABCLIA [id number] [place] [address] [place] TIMPANOGOS REGIONAL HOSPITAL OF AMERICAPlatelet mean volume (Bld) [Entitic vol]8.9 fLLow9.0-12.7 [facility] on above:Order Comment: Specimen Type: BLOOD SPECIMENOrdering Facility: [facility] Address:[address] [place], [place] [address]Performed By: #### 00791-1 ####[facility] LABCLIA [id number] [place] [id number] [place] AMERICAPlatelets (Bld) [#/Vol]410 10*3/nNOubk358-435LvlqpwkobOhioHealth Riverside Methodist Hospital on above: Order Comment: Specimen Type: BLOOD SPECIMENOrdering Facility: [facility] Address:[address] [place], [place] [address]Performed By: #### 15163- 2 ####[facility] LABCLIA [id number] [place] [id number] [place] OF AMERICARBC (Bld) [#/Vol]4.57 10*6/uLNormal3.90-5.20[facility] on above:Order Comment: Specimen Type: BLOOD SPECIMENOrdering Facility: [facility] Address:[address] [place], [place] [id number] By: #### 23063-3 ####[facility] LABCLIA [id number] [place] [id number] [place] OF AMERICAWBC (Bld) [#/Vol]10.63 10*3/uL Normal3.70-11.00[facility] on above:Order Comment: Specimen Type: BLOOD SPECIMENOrdering Facility: [facility] Address:[address] [place], [place] [address]Performed By: #### 50527-9 ####[facility] LABCLIA [id number] [place] [address] [place] [facility] OHIOCNOVon 69-64-6742DAGPBcxycr Visit (REIBD) DANELLE GUIDO ([id number]) 89 F Date Time Provider Department 12/13/23 [...] PCOS. Sought initial evaluation for fertility with service order expediter in [place]. Had HSG done a few months ago, told normal. No recent ultrasound done. had semen analysis that was within normal limits. Biochemical x1 in 05/2023. Has done 5 cycles of clomid/+OPK/TIC. 50 x 4 cycles -> 100. Past Medical History: PAST MEDICAL HISTORY Diagnosis Date Anemia Female infertility Insulin resistance Past Surgical History: History reviewed. No pertinent surgical history. OB History: 06/2023 Biochemical LEGAL SUPPORT ANALYST History: Menstrual cycle pattern: Regular periods (25-34 [...] Units 3 wk ago Date of Analysis 10.2.24 Semen Volume >=1.50 mL 2.90 pH, Semen >=7.2 7.6 Color, Semen Jeffers Opalescent Semen Viscosity Normal Sperm Concentration >=15.00 M/mL 177.50 Total Sperm Count M 514.75 % Motile Sperm (%[place] + %TEMPERING OVEN OPERATOR) >=40 % 82 Forward Progression 4 = [...] following: mental retardation, learni (more content not included)...Normal [facility] CenterHBV core Ab Ser Qlon 42-33-0357TFL core Ab Ql (S) NegativeNormalNegativeUc Medical CenterComment on above:Order Comment: Specimen Type: BLOOD SPECIMENOrdering Facility: [facility] Address:[address] [place], [place] [address]Result Comment: No evidence of current or past infection with Hepatitis B virus. Should recent infection be suspected, repeat testing may be considered 3-4 weeks after this draw.Performed By: #### 34639-1, 5195-3, 30029-0, 29850-9 ####[facility] LABCLIA [id number] [place] [address] [place] OF AMERICAHBV surface Ag Ser Qlon 25-40-5383GFL surface Ag Ql (S)NegativeNormal NegativeOhioHealth Riverside Methodist Hospital on above:Order Comment: Specimen Type: BLOOD SPECIMENOrdering Facility: [facility] Address:[address] [place], [place] [address]Performed By: #### 56601-5, 5195-3, 68806-9, 88703-2 ####[facility] LABCLIA [id number] [place] [address] [place] AMERICAHCV Ab Ser Qlon 27-38-6183ISZ Ab Ql (S)NegativeNormalNegativeOhioHealth [facility] on above:Order Comment: Specimen Type: BLOOD SPECIMENOrdering Facility: [facility] Address:[address] [place], [place] [address]Result Comment: The result suggests no evidence of active infection with Hepatitis C virus. Should recent infection be suspected, repeat testing may be considered 4- 6 weeks after this draw.Performed By: #### 61424-5 ####[facility] LABCLIA [id number] [place] [address] [place] AMERICAHIV 1+2 Ab IA Qlon 54-61-3666SGH 1 and 2 Ab IA.rapid Nom (S/P/Bld)NormalOhioHealth Riverside [facility] on above:Order Comment: Specimen Type: BLOOD SPECIMENOrdering Facility: [facility] Address:[address] [place], [place] [address]Result Comment: Test not indicated. Performed By: #### 35328-9, 5195-3, 39300-2, 86569-3 ####[facility] LABIA [id number] [place] [address] [place] AMERICAHIV 1+2 Ab+HIV1 p24 Ag IA QlNon-ReactiveNormalNonreactive [facility] on above:Order Comment: Specimen Type: BLOOD SPECIMENOrdering Facility: [facility] Address:[address] [place], [place] [address]Performed By: #### 22266-4, 5195-3, 54595-0, 88636-4 ####[facility] LABIA [id number] [place] [address] [place] AMERICAHIV immunoassay testing algorithm interpretation (S/P/Bld) [Interp]NormalOhioHealth [facility]ide [facility] on above:Order Comment: Specimen Type: BLOOD SPECIMENOrdering Facility: [facility] Address:[address] [place], [place] [address]Result Comment: No evidence of HIV-1 or HIV-2 infection. Should recent infection be suspected, repeat testing may be considered 2-3 weeks after this draw. [place] Rev. Code 3701.243(E): This information has been [...] the release of HIV test results or diagnoses.Performed By: #### 89205-3, 5195-3, 98880-9, 84192-9 ####[facility] LABCLIA [id number] [address]ETHbA1c (Bld)on 20-75-3272Nxxfacb glucose Estimated from glycated hemoglobin (Bld) [Mass/Vol]105 mg/dLNormalCPomerene HospitalComment on above:Order Comment: Specimen Type: BLOOD SPECIMENOrdering Facility: [facility] Address:[address] [place], [place] [address]Result Comment: eAG: (Estimated average glucose) is a calculated value from HgbA1c and is national account representative of the average blood glucose level in the last 2-3 month period.Performed By: #### 61089-7 ####[facility] LABIA [id number] [place] [id number] [facility] CENTERHbA1c (Bld) [Mass fraction]5.3 %Normal4.3-5.6CPomerene Hospital Comment on above:Order Comment: Specimen Type: BLOOD SPECIMENOrdering Facility: [facility] Address:[address] [place], [place] [address]Result Comment: [place] Diabetes Association guidelines indicate that patients with HgbA1c in the range 5.7-6.4% are at increased risk for development of diabetes, and intervention by lifestyle modification may be beneficial. HgbA1c greater or equal to 6.5% is considered diagnostic of diabetes.Performed By: #### 77090-4 ####[facility] LABIA [id number] [place] [id number] [place] OF AMERICARUBELLA IGG ANTIBODYon 12-13-2023 RUBELLA IGG AB, QUALPositiveNormalPositiveOhioHealth [facility] on above:Order Comment: Specimen Type: BLOOD SPECIMENOrdering Facility: [facility] Address:[address] [place], [place] [address]Result Comment: The result suggests recent or past exposure to Rubella virus or history of Rubella vaccination. Positive result may also be seen due to presence of passively-transferred antibodies. Please correlate with patient's history. Performed By: #### VZVG2, RUBIGG ####[facility] LABCLIA [id number] [place] [address] [place]O Reagin and Treponema pallidum IgG and IgM [Interp]on 12-13-2023T. pallidum IgG+IgM IA Ql (S)Non-ReactiveNormalNonreactiveOhioHealth [facility] on above:Order Comment: Specimen Type: BLOOD SPECIMENOrdering Facility: [facility] Address:[address] [place] [address] Performed By: #### 11363-5, 5195-3, 90751-5, 75939-4 ####[facility] LABCLIA [id number] [place] [address] [place] AMERICAReagin+T pallidum IgG+IgM SerPl-Impon 15-42-5912Uvwqkc and Treponema pallidum IgG and IgM [Interp]Cannot exclude recent Treponemal infection if specimen collected within 7-10 days after appearance of suspect lesions or 2-3 weeks after an exposure. Clinical correlation is required.Normal [facility] on above:Order Comment: Specimen Type: BLOOD SPECIMENOrdering Facility: [facility] Address:[address] [place], [place] [address]Performed By: #### 62966-8, 5195-3, 37579-8, 30372-9 ####[facility] LABCLIA [id number] [place] [address] [place] OF AMERICATYPE + SCREENon 74-30-9547LSYU NormalOhioHealth [facility]ide [facility] on above:Order Comment: Specimen Type: BLOOD SPECIMENOrdering Facility: [facility] Address:[address] [place], [place] [address]Performed By: #### TSCR ####CC [facility] BLOOD BANKCLIA [id number] [place] [address] [place] AMERICARh Nom (Bld)PositiveNormalCKettering Health Hamilton on above: Order Comment: Specimen Type: BLOOD SPECIMENOrdering Facility: [facility] Address:[address] [place], [place] [address]Performed By: #### TSCR ####[facility] BLOOD BANKCLIA [id number] [place] [address] [place] OF AMERICATYPE AND SCREEN UOLMFZEMGH21/31/2024 23:59Normal [facility] on above:Order Comment: Specimen Type: BLOOD SPECIMENOrdering Facility: [facility] Address:[address] [place], [place] [address]Performed By: #### TSCR ####[facility] BLOOD BANKCLIA [id number] [place] [address] [place] AMERICAABO group Nom (Bld)AClevlindsborg ClinicBlood group antibody screen Ql NegativeMarymount Hospital Nom (Bld)PositiveLancaster Municipal HospitalType and Screen Hoazqxwwpm72/31/2024 23:59[facility] Medical CenterVARICELLA ZOSTER IGGon 95-09-0539KNVACDTIV ZOSTER IGG, QUALPositiveNormalPositiveOhio[facility] on above:Order Comment: Specimen Type: BLOOD SPECIMENOrdering Facility: [facility] Address:[address] [place], [place] [address]Result Comment: The result suggests recent or past exposure to Varicella- Zoster virus or chickenpoxvaccination or zoster vaccination. Positive result may also be seen due to presence of passively-transferred antibodies. Please correlate with patient's history.Performed By: #### VZVG2, RUBIGG ####[facility] LABCLIA [id number] [facility] [id number] [address] [place] AMERICABacteria [Presence] in Urine by AutomatedOrdered By: Alok Sandhu on 70-10-3094Utkbcfee Auto Ql (U)Rare [HPF]None SeenMercy Health – The Jewish HospitalBasophils Auto (Bld) [#/Vol]Ordered By: Alok Sandhu on 52-57-0596Kfqjfsysp (Bld) [#/Vol]0.1 10*3/uL0.0-0.2FAccess Hospital DaytonBasophils/100 WBC Auto (Bld)Ordered By: Alok Sandhu on 09-27-2023 Basophils/100 WBC (Bld)0.8 %.[facility] Jewish HospitalBilirubin Test strip Ql (U)Ordered By: Alok Sandhu on 67-51-6668Ccmsyunmy Ql (U)Negative NegativeMercy Health – The Jewish HospitalC reactive protein [Mass/volume] in Serum or PlasmaOrdered By: Alok Sandhu on 99-65-5392DMB [Mass/Vol]< 0.5 mg/dL 0.0-0.5FAccess Hospital DaytonColor Auto (U)Ordered By: Alok Sandhu on 40-65-4007Yrfxb (U)Light-yellowYellowMercy Health – The Jewish Hospital Creatinine [Mass/volume] in Serum or PlasmaOrdered By: Alok Sandhu on 26-17-7410Zsbvidqdjm [Mass/Vol]0.77 mg/dL0.60-1.20[facility] Jewish HospitalEosinophils Auto (Bld) [#/Vol]Ordered By: Alok Sandhu on 09-27-2023 Eosinophils (Bld) [#/Vol]0.2 10*3/uL0.0-0.45[facility] Eosinophils/100 WBC Auto (Bld)Ordered By: Alok Sandhu on 09-27-2023 Eosinophils/100 WBC (Bld)2.0 %.[facility] Jewish HospitalEpithelial cells.squamous [#/area] in Urine sediment by Automated countOrdered By: Alok Sandhu on 13-58-5655Wnzmyagfcj cells.squamous Auto (Urine sed) [#/Area]3-4 [HPF]High0-2FAccess Hospital DaytonErythrocyte distribution width Auto (RBC) [Ratio]Ordered By: Alok Sandhu on 64-36-0188Lzvpabzvayb distribution width (RBC) [Ratio]12.5 %11.9-15.3FAccess Hospital DaytonErythrocyte sedimentation rate by Photometric methodOrdered By: Alok Sandhu on 09-27-2023 ESR Photometric method (Bld) [Velocity]10 mm/hr0-19Mer[facility] Jewish HospitalErythrocytes [#/area] in Urine sediment by Automated countOrdered By: Alok Sandhu on 75-92-5028WGW Auto (Urine sed) [#/Area]1-2 [HPF]0-4FAccess Hospital DaytonGlucose [Mass/volume] in Urine by Test stripOrdered By: Alok Sandhu on 79-23-4562Lewipjo Test strip (U) [Mass/Vol]Normal mg/dLNormal [facility] HospitalHematocrit Auto (Bld) [Volume fraction]Ordered By: Alok Sandhu on 72-03-2966Cmrmiokkjg (Bld) [Volume fraction]40.0 % 34.0-46.4FAccess Hospital DaytonHemoglobin Test strip Ql (U)Ordered By: Alok Sandhu on 50-15-3082Ltnlexdroh Ql (U)NegativeNegativeMercy Health – The Jewish HospitalHemoglobin [Mass/volume] in BloodOrdered By: Alok Sandhu on 47-78-9625Aglnjfahwp (Bld) [Mass/Vol]13.6 g/dL11.8-15.4FAccess Hospital DaytonHyaline casts [#/area] in Urine sediment by Automated countOrdered By: Alok Sandhu on 49-08-3754Skivtek casts Auto (Urine sed) [#/Area]None [LPF]0-8[facility] Jewish HospitalKetones Test strip Ql (U) Ordered By: Alok Sandhu on 84-12-1790Qnxqrwo Ql (U)1+HighNegParkview HealthLeukocyte esterase [Presence] in Urine by Test strip Ordered By: Alok Sandhu on 36-91-5257Zwkxqosam esterase Test strip Ql (U) NegativeNegativeMercy Health – The Jewish HospitalLeukocytes [#/area] in Urine sediment by Automated countOrdered By: Alok Sandhu on 10-18-1962OTO Auto (Urine sed) [#/Area]3-4 [HPF]0-4FAccess Hospital DaytonLeukocytes [#/volume] corrected for nucleated erythrocytes in Blood by Automated coun Ordered By: Alok Sandhu on 24-30-7317JWE corrected for nucl RBC Auto (Bld) [#/Vol]10.5 10*3/uL3.8-11.6FAccess Hospital DaytonLymphocytes Auto (Bld) [#/Vol]Ordered By: Alok Sandhu on 66-93-4418Rryaxariddu (Bld) [#/Vol] 3.2 10*3/uL1.00-4.8[facility] Jewish HospitalLymphocytes/100 WBC Auto (Bld)Ordered By: Alok Sandhu on 79-44-4347Vhsrzwfklnh/100 WBC (Bld)30.2 %. [facility] HospitalMCH Auto (RBC) [Entitic mass]Ordered By: Alok Sandhu on 27-55-7821HEP (RBC) [Entitic mass]30.1 pg24.7-34.3FAccess Hospital DaytonMCHC Auto (RBC) [Mass/Vol]Ordered By: Alok Sandhu on 09-27-2023 MCHC (RBC) [Mass/Vol]34.0 g/dL32.0-35.0[facility] HospitalMCV Auto (RBC) [Entitic vol]Ordered By: Alok Sandhu on 36-11-8161ZCE (RBC) [Entitic vol]88.4 xK00-586IwddufjuaMercy Health – The Jewish HospitalMonocytes Auto (Bld) [#/Vol] Ordered By: Alok Sandhu on 98-64-8059Fcamklthw (Bld) [#/Vol]0.9 10*3/uLHigh 0.0-0.8[facility] HospitalMonocytes/100 WBC Auto (Bld)Ordered By: Alok Sandhu on 79-89-4686Kyuxvmgrm/100 WBC (Bld)8.2 %.[facility] HospitalMucus [Presence] in Urine by AutomatedOrdered By: Alok Sandhu on 59-97-7789Czdra Auto Ql (U)Rare [LPF][facility] Neutrophils Auto (Bld) [#/Vol]Ordered By: Alok Sandhu on 09-27-2023 Neutrophils (Bld) [#/Vol]6.2 10*3/uL1.8-7.7FAccess Hospital Dayton Neutrophils/100 WBC Auto (Bld)Ordered By: Alok Sandhu on 09-27-2023 Neutrophils/100 WBC (Bld)58.8 %.[facility] Jewish HospitalNitrite Test strip Ql (U)Ordered By: Alok Sandhu on 35-21-9859Fmnrzfj Ql (U)Negative NegativeMercy Health – The Jewish HospitalNo Panel InformationOrdered By: Alok Sandhu on 26-45-2179Xcxmzqriu GFR (CKD-EPI)> 60.0 mL/MinMercy Health – The Jewish HospitalPharmacy Creatinine Clearance (ChemN/[facility] CampusTotal Complement (CH50)60 U/mL>41Mer[facility] Jewish HospitalComment on above:Age Male Female 1 - 30 days Not Estab. Not Estab. 31 days - 6 months >32 >20 7 months - 17 years >39 >39 >17 years >41 >41 NOTE: The adult ( >17 years ) reference intervalrange is used to flag abnormals on this report. If the patient is 17 years old or younger, use the table above to determine out of range values.Performed at: - [address] [id number] Director: Harsha Villanueva PhD, Phone: [phone] erythrocytes [Presence] in Blood by Automated countOrdered By: Alok Sandhu on 64-68-8550Uwcdxdclh RBC Auto Ql (Bld)0.0 /100{WBC}0-0.5FAccess Hospital DaytonPlatelet mean volume Auto (Bld) [Entitic vol]Ordered By: Alok Sandhu on 50-80-0030Epmahebi mean volume (Bld) [Entitic vol]7.5 fL6.3-10.7 [facility] Jewish HospitalPlatelets Auto (Bld) [#/Vol]Ordered By: Alok Sandhu on 83-25-5822Ilaiqffll (Bld) [#/Vol]456 10*3/yEQfza052-472BmiivtsatMercy Health – The Jewish HospitalProtein Test strip (U) [Mass/Vol]Ordered By: Alok Sandhu on 00-33-9499Snncxmv (U) [Mass/Vol]NegativeNegativeMercy Health – The Jewish HospitalRBC Auto (Bld) [#/Vol]Ordered By: Alok Sandhu on 35-02-2317AJN (Bld) [#/Vol]4.52 10*6/uL3.60-5.00Samaritan Hospitalerum or plasma complement C3 measurement (mass/volume)Ordered By: Alok Sandhu on 18-29-3387Ixwpswxhgw C3 [Mass/Vol]162 mg/aV74-659VtysoaljzMercy Health – The Jewish HospitalComment on above:Performed at: [employer] [facility]co[address] [id number] Director: Harsha Villanueva PhD, Phone: [phone] or plasma complement C4 measurement (mass/volume)Ordered By: Alok Sandhu on 07-94-6487Unabkocjmn C4 [Mass/Vol]33 mg/dJ30-61CwnnmvcopMercy Health – The Jewish Hospital Specific gravity Test strip (U) [Rel density]Ordered By: Alok Sandhu on 91-18-2120Ymapiiob gravity (U) [Rel density]1.0221.001-1.030[facility] HospitalUrine appearanceOrdered By: Alok Sandhu on 89-18-1847Pwiyrynqan (U)ClearClearFAccess Hospital DaytonUrobilinogen Test strip (U) [Mass/Vol]Ordered By: Alok Sandhu on 69-60-8268Hgvnwisrkibk (U) [Mass/Vol] Normal mg/dLNormalMercy Health – The Jewish HospitalWBC Auto (Bld) [#/Vol]Ordered By: Alok Sandhu on 69-58-1091GWP (Bld) [#/Vol]10.5 10*3/uL3.8-11.6FAccess Hospital DaytonpH Test strip (U)Ordered By: Alok Sandhu on 09-27-2023 pH (U)5.5 [pH]5.0-9.0Samaritan Hospitalerum or plasma progesterone measurement (mass/volume)Ordered By: Mandy Patel on 09-04-2023 Progesterone [Mass/Vol]11.8 ng/mL.[facility] HospitalComment on above:Follicular phase 0.1 - 0.9 Luteal phase 1.8 - 23.9 Ovulation phase 0.1 - 12.0 First trimester 11.0 - 44.3 Second trimester 25.4 - 83.3 Third trimester 58.7 - 214.0 Postmenopausal 0.0 - 0.1Performed at: [facility] [address] [place], [place] [id number] Director: Harsha Shelton, Phone: [phone] or plasma progesterone measurement (mass/volume)Ordered By: Mandy Patel on 74-44-7042Dxbrkbdkyhmt [Mass/Vol]12.5 ng/mL.[facility] HospitalComment on above:Follicular phase 0.1 - 0.9 Luteal phase 1.8 - 23.9 Ovulation phase 0.1 - 12.0 First trimester 11.0 - 44.3 Second trimester 25.4 - 83.3 Third trimester 58.7 - 214.0 Postmenopausal 0.0 - 0.1Performed at: [facility] [place], [place] [id number] Director: Harsha Shelton, Phone: [phone] aminotransferase [Enzymatic activity/volume] in Serum or PlasmaOrdered By: Pippa Lane on 74-24-0473QSX [Catalytic activity/Vol]14 U/LMercy Health – The Jewish HospitalALT [Catalytic activity/Vol]Alanine aminotransferase [Enzymatic activity/volume] in Serum or PlasmaMercy Health – The Jewish HospitalAlbumin [Mass/volume] in Serum or Plasma by Bromocresol green (BCG) dye binding metho Ordered By: Pippa Lane on 01-93-9743Oujsukc BCG dye [Mass/Vol]4.1 g/dL 3.5-5.7FAccess Hospital DaytonAlbumin BCG dye [Mass/Vol]Albumin [Mass/volume] in Serum or Plasma by Bromocresol green (BCG) dye binding metho 3.5-5.7FAccess Hospital DaytonAlkaline phosphatase [Enzymatic activity/volume] in Serum or PlasmaOrdered By: oliva Lane on 26-00-0650HCK [Catalytic activity/Vol]64 U/J26-797AqzedqyomMercy Health – The Jewish HospitalALP [Catalytic activity/Vol]Alkaline phosphatase [Enzymatic activity/volume] in Serum or Bcdlzu54-901QrxkvvaqzMercy Health – The Jewish HospitalAspartate aminotransferase [Enzymatic activity/volume] in Serum or PlasmaOrdered By: oliva Lane on 20-33-3682JBZ [Catalytic activity/Vol]19 U/U15-99QwwwqmpojMercy Health – The Jewish HospitalAST [Catalytic activity/Vol]Aspartate aminotransferase [Enzymatic activity/volume] in Serum or Vqbpkq99-62YczbjoogkMercy Health – The Jewish Hospital Basophils Auto (Bld) [#/Vol]Ordered By: oliva Lane on 25-01-9705Ulvstvbjq (Bld) [#/Vol]0.1 10*3/uL0.0-0.2FAccess Hospital DaytonBasophils/100 WBC Auto (Bld)Ordered By: oliva Lane on 16-88-4860Ilvmqqyxl/100 WBC (Bld)0.8 %.[facility] Jewish HospitalBilirubin.total [Mass/volume] in Serum or PlasmaOrdered By: oliva De La OLeonides on 79-24-8505Agtzwwxpt [Mass/Vol]0.2 mg/dLLow 0.3-1.0[facility] Jewish HospitalBilirubin [Mass/Vol]Bilirubin.total [Mass/volume] in Serum or PlasmaLow0.3-1.0[facility] Calcium [Mass/volume] in Serum or PlasmaOrdered By: oliva Lane on 07-15-2023 Calcium [Mass/Vol]9.1 mg/dL8.6-10.3FAccess Hospital DaytonCalcium [Mass/Vol]Calcium [Mass/volume] in Serum or Plasma8.6-10.3FAccess Hospital DaytonCarbon dioxide, total [Moles/volume] in Serum or PlasmaOrdered By: oliva Lane on 99-06-5078BA5 [Moles/Vol]25.8 mmol/L21.0-31.0[facility] Jewish HospitalCO2 [Moles/Vol]Carbon dioxide, total [Moles/volume] in Serum or Tisbms19.0-31.0[facility] HospitalChloride [Moles/volume] in Serum or PlasmaOrdered By: Pippa Lane on 36-14-6313Xxvnylrc [Moles/Vol] 109 mmol/WZcpn85-516DelgbcnrvMercy Health – The Jewish HospitalChloride [Moles/Vol] Chloride [Moles/volume] in Serum or FecgweGqxl58-711DvrlveiayMercy Health – The Jewish HospitalCortisol [Mass/volume] in Serum or PlasmaOrdered By: Pippa Lane on 58-16-1900Oabkdyuy [Mass/Vol]Random cortisol measurementMercy Health – The Jewish HospitalComment on above:[facility] Laboratory reclamation engineer and method:mymission2 DXI, POLYCLONAL ANTIBODY CORTISOL ASSAY.Reference range: AM 6 - 24 ug/dl PM <10 ug/dlCreatinine [Mass/volume] in Serum or PlasmaOrdered By: Pippa Lane on 61-73-6842Pwkwjqlyxt [Mass/Vol]0.87 mg/dL0.60-1.20 [facility] Jewish HospitalCreatinine [Mass/Vol]Creatinine [Mass/volume] in Serum or Plasma0.60-1.20[facility] Jewish HospitalEosinophils Auto (Bld) [#/Vol]Ordered By: Pippa Lane on 49-76-4841Dmkmsdgubzr (Bld) [#/Vol] 0.4 10*3/uL0.0-0.45[facility] Jewish HospitalEosinophils/100 WBC Auto (Bld)Ordered By: Pippa Lane on 10-23-9694Pehpvbfrdwv/100 WBC (Bld)3.8 %. [facility] Jewish HospitalErythrocyte distribution width Auto (RBC) [Ratio]Ordered By: Pippa Lane on 06-20-4826Zeredjsgmgl distribution width (RBC) [Ratio]12.9 %11.9-15.3FAccess Hospital DaytonFerritin [Mass/volume] in Serum or PlasmaOrdered By: Pippa Lane on 29-02-0599Lrckzqdd [Mass/Vol]30.0 ng/mL11.0-306.8[facility] Jewish HospitalFolate [Mass/volume] in Serum or PlasmaOrdered By: Pippa Lane on 89-55-9172Yakxar [Mass/Vol]ng/mL>5.9[facility] Jewish HospitalComment on above:Folate reference range: >5.9 ng/mlThe WHO technical consultation on folate and vitamin q86iseplvtnocuv has determined that folate concentrations lessthan 4 ng/ml are considered deficient.Folate [Mass/Vol]Folate [Mass/volume] in Serum or Plasma >5.9[facility] Jewish HospitalComment on above:Folate reference range: >5.9 ng/mlThe WHO technical consultation on folate and vitamin d92kxvzvywilzht has determined that folate concentrations lessthan 4 ng/ml are considered deficient.Globulin Calc (S) [Mass/Vol]Ordered By: Pippa Lane on 07-15-2023 Globulin (S) [Mass/Vol]2.7 g/dLMercy Health – The Jewish HospitalGlobulin (S) [Mass/Vol]Serum globulin measurement by calculation (mass/volume)[facility] HospitalGlucose [Mass/volume] in Serum or PlasmaOrdered By: Pippa Lane on 71-58-1387Kmomxbu [Mass/Vol]103 mg/oIDtal83-999GviozclcyMercy Health – The Jewish HospitalComment on above:ADA recommended reference rangeRandom Glucose Reference Range is dependent on time and content of last meal. Glucose of more than 200 mg/dL in a nonstressed, ambulatory subject supports the diagnosisof Diabetes Mellitus.Glucose [Mass/Vol]Glucose [Mass/volume] in Serum or PlasmaHigh 70-100Mer[facility] Jewish HospitalComment on above:ADA recommended reference rangeRandom Glucose Reference Range is dependent on time and content of last meal. Glucose of more than 200 mg/dL in a nonstressed, ambulatory subject supports the diagnosisof Diabetes Mellitus.HIV 1 and HIV-2 antibody assay with HIV-1 p24 antigen detectionOrdered By: Pippa Lane on 07-15-2023 HIV 1+2 Ab+HIV1 p24 Ag IA QlNon-ReactiveNon ReactiveMercy Health – The Jewish HospitalComment on above:HIV NegativeHIV-1/HIV-2 antibodies and HIV-1 p24 antigen were NOTdetected. There is no laboratory evidence of HIV infection.Performed at: [address] [id number] Director: Harsha Villanueva PhD, Phone: [id number] antibody and antigen panelOrdered By: Pippa Lane on 13-92-9751XRN 1+2 Ab+HIV1 p24 Ag IA QlHIV 1 and HIV-2 antibody assay with HIV-1 p24 antigen detectionNon ReactiveMercy Health – The Jewish HospitalComment on above:HIV NegativeHIV-1/HIV-2 antibodies and HIV-1 p24 antigen were NOTdetected. There is no laboratory evidence of HIV infection.Performed at: [facility] [address] [id number] Director: Harsha Villanueva PhD, Phone: [phone] Auto (Bld) [Volume fraction]Ordered By: Pippa Lane on 02-62-1401Hteyfmqdho (Bld) [Volume fraction]40.5 % 34.0-46.4FAccess Hospital DaytonHemoglobin [Mass/volume] in Blood Ordered By: Pippa Lane on 26-25-1471Yyxwafnqce (Bld) [Mass/Vol]13.7 g/dL 11.8-15.4FAccess Hospital DaytonHepatitis B virus core antibody assay Ordered By: Pippa Lane on 01-11-9923Iqztahngv B Core Total AntibodyNegative NegativeMercy Health – The Jewish HospitalComment on above:Performed at: [address] [id number] Director: Harsha Villanueva PhD, Phone: [phone] B virus surface Ab [Presence] in Serum Ordered By: Pippa Lane on 81-62-5024KOF surface Ab Ql (S)Reactive.[facility] Jewish HospitalComment on above:Non Reactive: Inconsistent with immunity, less than 10 mIU/mL Reactive: Consistent with immunity, greater than 9.9 mIU/mLHepatitis B virus surface Ag [Presence] in Serum or Plasma by ImmunoassayOrdered By: Pippa Lane on 08-72-5997BLM surface Ag IA QlNegative NegativeMercy Health – The Jewish HospitalHepatitis C virus IgG Ab [Presence] in Serum or Plasma by ImmunoassayOrdered By: Pippa Lane on 87-11-7858NOI IgG IA QlNon-ReactiveNon ReactiveMercy Health – The Jewish HospitalHCV IgG IA Ql Hepatitis C virus IgG Ab [Presence] in Serum or Plasma by ImmunoassayNon ReactiveMercy Health – The Jewish HospitalIron [Mass/volume] in Serum or Plasma Ordered By: Pippa Lane on 39-86-1516Sswz [Mass/Vol]47 ug/vQNat87-698 [facility] HospitalIron binding capacity [Mass/volume] in Serum or PlasmaOrdered By: Pippa Lane on 03-97-0096Uppo binding capacity [Mass/Vol] 419 ug/sN809-112FpxvgfjovMercy Health – The Jewish HospitalIron saturation [Mass Fraction] in Serum or PlasmaOrdered By: Pippa Lane on 53-54-9661Dfeu saturation [Mass fraction]11.2 %Bra35-95MtjglzgkgMercy Health – The Jewish HospitalLeukocytes [#/volume] corrected for nucleated erythrocytes in Blood by Automated counOrdered By: Pippa Lane on 33-95-8201VAO corrected for nucl RBC Auto (Bld) [#/Vol]10.4 10*3/uL3.8-11.6FAccess Hospital DaytonLymphocytes Auto (Bld) [#/Vol] Ordered By: Pippa Lane on 00-37-4021Uetdjrtedlh (Bld) [#/Vol]3.3 10*3/uL 1.00-4.8Mer[facility] The Jewish HospitalLymphocytes/100 WBC Auto (Bld)Ordered By: Pippa Lane on 03-08-2922Iwldztnrkza/100 WBC (Bld)31.9 %.[facility] Auto (RBC) [Entitic mass]Ordered By: Pippa Lane on 35-63-6661AMJ (RBC) [Entitic mass]29.6 pg24.7-34.3FTriHealth Auto (RBC) [Mass/Vol]Ordered By: Pippa Lane on 98-05-8280XUSK (RBC) [Mass/Vol]33.9 g/dL32.0-35.0[facility] Jewish HospitalMCV Auto (RBC) [Entitic vol]Ordered By: Pippa Lane on 87-90-3834SSW (RBC) [Entitic vol]87.5 uT49-241BaonpmpzjMercy Health – The Jewish HospitalMonocytes Auto (Bld) [#/Vol] Ordered By: Pippa Lane on 70-44-8871Kjblhfuja (Bld) [#/Vol]0.9 10*3/uLHigh 0.0-0.8[facility] Jewish HospitalMonocytes/100 WBC Auto (Bld)Ordered By: Pippa Lane on 72-96-8713Mhzpnsxmf/100 WBC (Bld)8.5 %.[facility] Jewish HospitalNeutrophils Auto (Bld) [#/Vol]Ordered By: Pippa Lane on 86-48-2165Xvgzosjvyah (Bld) [#/Vol]5.7 10*3/uL1.8-7.7FAccess Hospital DaytonNeutrophils/100 WBC Auto (Bld)Ordered By: Pippa Lane on 07-15-2023 Neutrophils/100 WBC (Bld)55.0 %.[facility] HospitalNo Panel InformationOrdered By: Pippa Lane on 78-24-0761Dtmw-Nuclear Antibody Comment 2See comment.[facility] Jewish HospitalComment on above:Pattern Potential Disease Association Homogeneous Systemic Lupus Erythematosus, Drug Induced Systemic Lupus Erythematosus, Chronic Autoimmune hepatitis, Juvenile Idiopathic Arthritis Speckled Sjogren Syndrome, Systemic Lupus Erythematosus, Subacute Cutaneous Lupus, Lupus, Congenital Heart Block, Mixed Connective Tissue Disease, Scleroderma-diffuse, Scleroderma- Autoimmune Myositis Overlap Syndrome, Systemic Lupus Udukxtoehgdaw-Ikpvdaddove-Grzpabvtde Myositis Overlap Syndrome, Systemic Autoimmune Rheumatic Disease, Undifferentiated Connective Tissue Disease Nucleolar Systemic Sclerosis, Scleroderma-Autoimmune Myositis Overlap Syndrome, Sjogren Syndrome, Raynaud phenomenon, Pulmonary Arterial Hypertension, Systemic Autoimmune Rheumatic Disease, Cancer Centromere Scleroderma-CREST, Limited Cutaneous SSc, Raynaud's Phenomenon, Primary Biliary Cholangit is Nuclear Dot Primary Biliary Cholangitis Nuclear Primary Biliary Cholangitis, AutoimmuneMembrane Hepatitis/Liver disease, Systemic Autoimmune Rheumatic Disease, Autoimmune Cytopenias, Linear Scleroderma, Antiphospholipid Syndrome Performed at: [facility] [id number] [place], [place] [id number] Director: Harsha Villanueva PhD, Phone: [phone]/ablSee commentMercy Health – The Jewish HospitalComment on above:See report. Scanned copy available in EMR.Estimated GFR (CKD-EPI)> 60.0 mL/MinMercy Health – The Jewish HospitalHepatitis C InterpretationSee comment.[facility] Jewish HospitalComment on above:Not infected with HCV unless early or acute infection issuspected (which may be delayed in an immunocompromisedindividual), or other evidence exists to indicate HCVinfection.Pharmacy Creatinine Clearance (ChemN/AFAccess Hospital DaytonNucleated erythrocytes [Presence] in Blood by Automated countOrdered By: Pippa Lane on 09-93-7110Igvismbno RBC Auto Ql (Bld)0.2 /100{WBC}0-0.5 [facility] Jewish HospitalPlatelet mean volume Auto (Bld) [Entitic vol] Ordered By: Pippa Lane on 53-48-4763Zwrwpdkn mean volume (Bld) [Entitic vol] 7.2 fL6.3-10.7FAccess Hospital DaytonPlatelets Auto (Bld) [#/Vol] Ordered By: Pippa Lane on 65-60-6798Cycijbtes (Bld) [#/Vol]394 10*3/uL 150-450Mer[facility] The Jewish HospitalPotassium [Moles/volume] in Serum or PlasmaOrdered By: oliva Lane on 09-13-1340Xbctfglrd [Moles/Vol]4.1 mmol/L 3.5-5.1FAccess Hospital DaytonPotassium [Moles/Vol]Potassium [Moles/volume] in Serum or Plasma3.5-5.1FAccess Hospital DaytonProtein [Mass/volume] in Serum or PlasmaOrdered By: oliva Lane on 66-54-9175Xlyyltv [Mass/Vol]6.8 g/dL6.4-8.9[facility] Jewish HospitalProtein [Mass/Vol] Protein [Mass/volume] in Serum or Plasma6.4-8.9[facility] RBC Auto (Bld) [#/Vol]Ordered By: oliva Lane on 11-68-7710ZGS (Bld) [#/Vol] 4.63 10*6/uL3.60-5.00[facility] Jewish HospitalRandom cortisol measurementOrdered By: Pippa Lane on 09-39-5313Oysofbxh [Mass/Vol]14.8 ug/dL [facility] HospitalComment on above:[facility] reclamation engineer and method:VICKIE UNICEL DXI, POLYCLONAL ANTIBODY CORTISOL ASSAY. Reference range: AM 6 - 24 ug/dl PM <10 ug/dlSerum angiotensin converting enzyme (ADIA) measurementOrdered By: Pippa Lane on 37-31-5274Mzttppoktyv converting enzyme [Catalytic activity/Vol]16 U/J31-83BlzqqblkmMercy Health – The Jewish Hospital Comment on above:Performed at: [employer] [id number] Director: Harsha Villanueva PhD, Phone: [phone] converting enzyme [Catalytic activity/Vol]Serum angiotensin converting enzyme (ADIA) -25HlzgbqagaMercy Health – The Jewish HospitalComment on above: Performed at: [facility] [address] [id number] Director: Harsha Villanueva PhD, Phone: [phone] hepatitis B virus surface antibody detectionOrdered By: Pippa Lane on 31-10-6949UTS surface Ab Ql (S)Hepatitis B virus surface Ab [Presence] in Serum.[facility] Jewish HospitalComment on above:Non Reactive: Inconsistent with immunity, less than 10 mIU/mL Reactive: Consistent with immunity, greater than 9.9 mIU/mLSerum homogeneous pattern antinuclear antibody (VANDANA) titerOrdered By: Pippa Lane on 97-39-0873Ceblerkapm nuclear Ab pattern (S) [Titer]1:80.[facility] Jewish HospitalComment on above:ICAP nomenclature: AC-1Homogenous nuclear Ab pattern (S) [Titer]Serum homogeneous pattern antinuclear antibody (VANDANA) titer. [facility] Jewish HospitalComment on above:ICAP nomenclature: AC-1Serum nuclear antibody titerOrdered By: Pippa Lane on 16-25-9259Yjavgqx Ab (S) [Titer]PositiveAbnormal.[facility] Jewish HospitalComment on above: Negative <1:80 Borderline 1:80 Positive >1:80Nuclear Ab (S) [Titer]Serum nuclear antibody titerAbnormal.[facility] Jewish HospitalComment on above: Negative <1:80 Borderline 1:80 Positive >1:80Serum or plasma albumin/globulin mass ratioOrdered By: Pippa Lane on 02-49-1506Huqhozs/Globulin [Mass ratio] 1.5 {ratio}[facility] HospitalAlbumin/Globulin [Mass ratio]Serum or plasma albumin/globulin mass ratioSamaritan Hospitalerum or plasma anion gap determinationOrdered By: Pippa Lane on 43-55-9486Rhrcs gap [Moles/Vol]9.3 mmol/L6.0-15.0[facility] HospitalAnion gap [Moles/Vol]Serum or plasma anion gap determination6.0-15.0Samaritan Hospitalerum or plasma hepatitis B virus surface antigen detection by immunoassayOrdered By: Pippa Lane on 52-15-1427UBH surface Ag IA QlHepatitis B virus surface Ag [Presence] in Serum or Plasma by ImmunoassayNegative Samaritan Hospitalerum or plasma rheumatoid factor measurement (units/volume)Ordered By: Pippa Lane on 78-20-2092Jqwlzyqfsh factor Qn [IU]/mL<14.0Mer[facility] Jewish HospitalComment on above:Performed at: [facility] CommunicationsA[place] [id number] Director: Harsha Villanueva PhD, Phone: [phone] factor QnSerum or plasma rheumatoid factor measurement (units/volume)<14.0[facility] Jewish HospitalComment on above:Performed at: [employer] [id number] Director: Harsha Villanueva PhD, Phone: [phone] [Moles/volume] in Serum or PlasmaOrdered By: Pippa Lane on 42-26-5193Uiezfa [Moles/Vol]140 mmol/R249-591LjjmhsfobSamaritan Hospitalodium [Moles/Vol] Sodium [Moles/volume] in Serum or Txzflo219-841WkpoqxhcdMercy Health – The Jewish Hospital Thyrotropin [Units/volume] in Serum or PlasmaOrdered By: oliva Lane on 33-72-5650FGO Qn2.11 m[IU]/L0.45-5.33[facility] Jewish HospitalTSH Qn Thyrotropin [Units/volume] in Serum or Plasma0.45-5.33[facility] HospitalThyroxine (T4) free [Mass/volume] in Serum or PlasmaOrdered By: oliva Coyle on 26-03-0389Hpyl T4 [Mass/Vol]0.62 ng/dL0.61-1.12[facility] Jewish HospitalFree T4 [Mass/Vol]Thyroxine (T4) free [Mass/volume] in Serum or Plasma0.61-1.12[facility] HospitalTransferrin [Mass/volume] in Serum or PlasmaOrdered By: oliva Lane on 44-73-2634Dexpqbmbgxx [Mass/Vol]299 mg/lW181-117LtocjxonrMercy Health – The Jewish HospitalUrea nitrogen [Mass/volume] in Serum or PlasmaOrdered By: oliva Lane on 53-70-0910Uikb nitrogen [Mass/Vol]8 mg/dL7Mer[facility] – The Jewish HospitalUrea nitrogen [Mass/Vol]Urea nitrogen [Mass/volume] in Serum or Plasma09-08[facility] Jewish HospitalVitamin B12 ser/plasOrdered By: oliva Lane on 18-07-9799Vjavokguj (Vitamin B12) [Mass/Vol]806 pg/nZ970-392JwkpfkqjnMercy Health – The Jewish HospitalCobalamin (Vitamin B12) [Mass/Vol]Vitamin B12 ser/thav407-120IqmcnsccxMercy Health – The Jewish HospitalWBC Auto (Bld) [#/Vol]Ordered By: oliva Lane on 03-36-2369DZD (Bld) [#/Vol]10.4 10*3/uL3.8-11.6FAccess Hospital DaytonUS RENAL BIon 52-60-5895[place]fpD[place], [place] [address] Ultrasound Report Signed Patient: DANELLE GUIDO MR#: [id number] : 2000 Acct:[id number] Age/Sex: 22 / F ADM Date: 02/09/23 Loc: US Attending Dr: Rebecca MCMILLAN Ordering Physician: Rebecca MCMILLAN Date of Service: 02/09/23 Procedure(s): US renal BI Accession Number(s): [id number] cc: Rebecca MCMILLAN ; Mirna Aguilera M.D. [facility] [place] [address] Patient Name: DANELLE GUIDO MRN: [facility]:[id number] date: 2000 Sex: F Assigned Patient Location: US Current Patient Location: US Accession/Order Number: [id number] Exam Date: 02/09/2023 07:02 Report Date: 02/09/2023 [...] renal calculus as noted. Electronically authenticated by: CARLIN ALONZO Date: 02/09/2023 12:15 Dictated By: Carlin Alonzo M.D. Signed By: 02/09/23 1218 DD/ 1215 TD/TT: Anodiser:LYNadiology, Radiologist, - 02/09/2023 [place] [address] Ultrasound Report Signed Patient: DANELLE GUIDO MR#: [id number] : 2000 Acct:[id number] Age/Sex: 22 / F ADM Date: 02/09/23 Loc: US Attending Dr: Rebecca MCMILLAN Ordering Physician: Rebecca MCMILLAN Date of Service: 02/09/23 Procedure(s): US renal BI Accession Number(s): [id number] cc: Rebecca MCMILLAN ; Mirna Aguilera M.D. [place] [address] Patient Name: DANELLE GUIDO MRN: [id number] date: 2000 Sex: F Assigned Patient Location: US Current Patient Location: US Accession/Order Number: [id number] Exam Date: 02/09/2023 07:02 Report Date: 02/09/2023 [...] renal calculus as noted. Electronically authenticated by: CARLIN ALONZO Date: 02/09/2023 12:15 Dictated By: Carlin Alonzo M.D. Signed By: 02/09/23 1218 DD/ 1215 TD/TT: Anodiser: [place] HealthcareRadiology Study observation (narrative)[place] AmayaUS RENAL BI Ordered By: Radiologist Radiology on 17-32-5914[facility] Work Phone: alanine aminotransferase [Enzymatic activity/volume] in Serum or PlasmaOrdered By: Pooja Cat on 03-00-6786EOK [Catalytic activity/Vol]17 U/L7-52[facility] Jewish HospitalAlbumin [Mass/volume] in Serum or Plasma by Bromocresol green (BCG) dye binding methoOrdered By: Pooja Cat on 21-91-4763Cvltijj BCG dye [Mass/Vol]4.5 g/dL3.5-5.7FAccess Hospital DaytonAlkaline phosphatase [Enzymatic activity/volume] in Serum or PlasmaOrdered By: Pooja Cat on 75-46-7328QGT [Catalytic activity/Vol]71 U/A95-044FyxirjvvsMercy Health – The Jewish HospitalAspartate aminotransferase [Enzymatic activity/volume] in Serum or PlasmaOrdered By: Pooja Cat on 61-87-2357QOZ [Catalytic activity/Vol]20 U/M91-49JqoszubhrMercy Health – The Jewish HospitalAutomated erythrocytes count in urine sediment (number/area)Ordered By: Pooja Cat on 03-55-9089HQJ Auto (Urine sed) [#/Area]20-49 [HPF]0-4FAccess Hospital DaytonAutomated leukocytes count in urine sediment (number/area)Ordered By: Pooja Cat on 61-43-8977BAK Auto (Urine sed) [#/Area]3-4 [HPF]0-4FAccess Hospital DaytonAutomated urine sediment calcium oxalate crystal count by microscopy (number/high powOrdered By: Pooja Cat on 68-59-1354Ltcntkb oxalate crystals LM.HPF (Urine sed) [#/Area]3+ [HPF][facility] HospitalBasophils Auto (Bld) [#/Vol]Ordered By: Pooja Cat on 01-28-2023 Basophils (Bld) [#/Vol]0.1 10*3/uL0.0-0.2FAccess Hospital Dayton Basophils/100 WBC Auto (Bld)Ordered By: Pooja Cat on 01-28-2023 Basophils/100 WBC (Bld)1.0 %.[facility] Jewish HospitalBilirubin Test strip Ql (U)Ordered By: Pooja Shirinswapna on 58-12-2819Gmrfnbgkv Ql (U)Negative NegativeMercy Health – The Jewish HospitalBilirubin.total [Mass/volume] in Serum or PlasmaOrdered By: Pooja Shirinswapna on 58-43-1476Ixgchzbmo [Mass/Vol]0.2 mg/dL 0.3-1.0[facility] Jewish HospitalCalcium [Mass/volume] in Serum or Plasma Ordered By: Pooja Cat on 02-68-6092Ghhxjyh [Mass/Vol]9.5 mg/dL8.6-10.3 [facility] Jewish HospitalCarbon dioxide, total [Moles/volume] in Serum or PlasmaOrdered By: Pooja Shirinswapna on 02-39-0494RY1 [Moles/Vol]22.3 mmol/L 21.0-31.0[facility] HospitalChloride [Moles/volume] in Serum or PlasmaOrdered By: Pooja Cat on 01-12-7409Nzioomcp [Moles/Vol]105 mmol/L 98-107Mer[facility] Jewish HospitalColor Auto (U)Ordered By: Pooja Cat on 26-61-7940Rlcmj (U)YellowYellowMercy Health – The Jewish HospitalCreatinine [Mass/volume] in Serum or PlasmaOrdered By: Pooja Cat on 01-28-2023 Creatinine [Mass/Vol]0.84 mg/dL0.60-1.20[facility] Eosinophils Auto (Bld) [#/Vol]Ordered By: Pooja Cat on 01-28-2023 Eosinophils (Bld) [#/Vol]0.4 10*3/uL0.0-0.45[facility] Eosinophils/100 WBC Auto (Bld)Ordered By: Pooja Cat on 01-28-2023 Eosinophils/100 WBC (Bld)2.9 %.[facility] Jewish HospitalErythrocyte distribution width Auto (RBC) [Ratio]Ordered By: Pooja Cat on 01-28-2023 Erythrocyte distribution width (RBC) [Ratio]12.6 %11.9-15.3Fire[facility] Medical CenterGlobulin Calc (S) [Mass/Vol]Ordered By: Pooja Cat on 46-15-8257Vjolomjf (S) [Mass/Vol]2.9 g/dLMercy Health – The Jewish Hospital Glucose [Mass/volume] in Serum or PlasmaOrdered By: Pooja Cat on 88-08-6729Zetrcgb [Mass/Vol]124 mg/fV86-289JcdxvgjgjMercy Health – The Jewish Hospital Comment on above:ADA recommended reference rangeRandom Glucose Reference Range is dependent on time and content of last meal. Glucose of more than 200 mg/dL in a nonstressed, ambulatory subject supports the diagnosisof Diabetes Mellitus. HCG ( test) IA.rapid Ql (U)Ordered By: Pooja Cat on 11-51-4591PLI ( test) Ql (U)NegativeMercy Health – The Jewish HospitalHematocrit Auto (Bld) [Volume fraction]Ordered By: Pooja Cat on 68-47-1350Qkvdudeiyq (Bld) [Volume fraction]41.5 %34.0-46.4FAccess Hospital Dayton Hemoglobin [Mass/volume] in BloodOrdered By: Pooja Cat on 01-28-2023 Hemoglobin (Bld) [Mass/Vol]14.0 g/dL11.8-15.4FAccess Hospital Dayton Ketones Auto test strip (U) [Mass/Vol]Ordered By: Pooja Cat on 01-28-2023 Ketones (U) [Mass/Vol]TraceNegativeMercy Health – The Jewish HospitalLaboratory - UrinalysisOrdered By: Pooja Cat on 96-55-4474Cpwjptf casts LM Ql (Urine sed)0-8 [LPF]0-8[facility] Jewish HospitalLeukocytes [#/volume] corrected for nucleated erythrocytes in Blood by Automated counOrdered By: Pooja Cat on 24-60-7465ZOL corrected for nucl RBC Auto (Bld) [#/Vol]14.2 10*3/uL 3.8-11.6FAccess Hospital DaytonLipase [Enzymatic activity/volume] in Serum or PlasmaOrdered By: Pooja Cat on 63-10-6026Mrjbzn [Catalytic activity/Vol]30.0 U/L11.0-82.0[facility] Jewish HospitalLymphocytes Auto (Bld) [#/Vol]Ordered By: Pooja Cat on 76-56-2574Ajkkyrpbnxs (Bld) [#/Vol] 4.2 10*3/uL1.00-4.8[facility] Jewish HospitalLymphocytes/100 WBC Auto (Bld)Ordered By: Pooja Cat on 18-83-4232Tajwcpvpkch/100 WBC (Bld)29.3 %. [facility] ShawH Auto (RBC) [Entitic mass]Ordered By: Pooja Cat on 53-80-9445TMG (RBC) [Entitic mass]29.8 pg24.7-34.3FMiami Valley HospitalHC Auto (RBC) [Mass/Vol]Ordered By: Pooja Cat on 36-28-3252KROG (RBC) [Mass/Vol]33.8 g/dL32.0-35.0[facility] HospitalMCV Auto (RBC) [Entitic vol]Ordered By: Pooja Cat on 60-25-3129CBO (RBC) [Entitic vol]88.2 jP22-184EenerwqqpMercy Health – The Jewish HospitalMonocyte distribution width [Entitic volume] in Blood by AutomatedOrdered By: Pooja Cat on 88-06-6353Iikckuou distribution width Auto (Bld) [Entitic vol]16.56 % 0.00-20.00[facility] HospitalMonocytes Auto (Bld) [#/Vol]Ordered By: Pooja Cat on 69-64-9839Tnnzplrqb (Bld) [#/Vol]1.0 10*3/uL0.0-0.8 [facility] HospitalMonocytes/100 WBC Auto (Bld)Ordered By: Pooja Cat on 52-73-8918Qhitbykxv/100 WBC (Bld)7.3 %.[facility] Jewish HospitalNeutrophils Auto (Bld) [#/Vol]Ordered By: Pooja Cat on 81-35-9136Yxvnlwxhbbf (Bld) [#/Vol]8.4 10*3/uL1.8-7.7FAccess Hospital DaytonNeutrophils/100 WBC Auto (Bld)Ordered By: Pooja Cat on 01-28-2023 Neutrophils/100 WBC (Bld)59.5 %.[facility] Jewish HospitalNitrite Test strip Ql (U)Ordered By: Pooja Cat on 73-98-7513Airuxax Ql (U)Negative NegativeMercy Health – The Jewish HospitalNo Panel InformationOrdered By: Pooja Cat on 94-58-9251Ihbnqkhgx GFR (CKD-EPI)> 60.0 mL/MinMercy Health – The Jewish HospitalPharmacy Creatinine Clearance (Ogyb718.80[facility] HospitalNucleated erythrocytes [Presence] in Blood by Automated countOrdered By: Pooja Cat on 13-52-3124Pqfejkcmb RBC Auto Ql (Bld)0.1 /100{WBC}0-0.5FAccess Hospital DaytonPlatelet mean volume Auto (Bld) [Entitic vol]Ordered By: Pooja Cat on 73-86-5043Grinpdcg mean volume (Bld) [Entitic vol]7.4 fL6.3-10.7FAccess Hospital DaytonPlatelets Auto (Bld) [#/Vol]Ordered By: Pooja Cat on 16-06-4312Xcphqfmuw (Bld) [#/Vol]461 10*3/eB524-290FzgiikdzvMercy Health – The Jewish HospitalPotassium [Moles/volume] in Serum or PlasmaOrdered By: Pooja Cat on 57-37-3888Qpvqezdoj [Moles/Vol]3.8 mmol/L3.5-5.1FAccess Hospital DaytonProtein Auto test strip (U) [Mass/Vol]Ordered By: Pooja Cat on 32-69-2663Ogqxhzt (U) [Mass/Vol]Trace mg/dLNegativeMercy Health – The Jewish HospitalProtein [Mass/volume] in Serum or PlasmaOrdered By: Pooja Cat on 55-80-7989Pxuhyjz [Mass/Vol]7.4 g/dL6.4-8.9 [facility] HospitalRBC Auto (Bld) [#/Vol]Ordered By: Pooja Cat 62-88-8065OXI (Bld) [#/Vol]4.70 10*6/uL3.60-5.00Samaritan Hospitalerum or plasma albumin/globulin mass ratioOrdered By: Pooja Cat on 83-71-4896Vmmaxwh/Globulin [Mass ratio]1.6 {ratio}[facility] Hospitalerum or plasma anion gap determinationOrdered By: Pooja Cat on 14-99-2675Xccbs gap [Moles/Vol]14.5 mmol/L6.0-15.0Sam[facility] Hospitalodium [Moles/volume] in Serum or PlasmaOrdered By: Pooja Cat 88-94-2542Bqfguc [Moles/Vol]138 mmol/C994-970GpnhiguxzMercy Health – The Jewish Hospital Specific gravity Auto test strip (U) [Rel density]Ordered By: Pooja Cat on 40-74-1555Bvokkcep gravity (U) [Rel density]1.0281.001-1.030Samaritan Hospitalquamous epithelial cells detection in urine sediment by light microscopyOrdered By: Pooja Cat 96-98-5053Jjzapxinpc cells.squamous LM Ql (Urine sed)3-4 [HPF]0-2FAccess Hospital DaytonUrea nitrogen [Mass/volume] in Serum or PlasmaOrdered By: Pooja Cat on 94-08-4909Zwaj nitrogen [Mass/Vol]14 mg/dL7-25[facility] HospitalUrine bacteria detection by automated methodOrdered By: Pooja Cat 22-63-7771Zebqzyij Auto Ql (U)2+None SeenMercy Health – The Jewish HospitalUrine clarity by refractometry automatedOrdered By: Pooja Cat 93-57-9342Efjfhuo Refractometry automated (U)CloudyClearFAccess Hospital DaytonUrine glucose measurement by automated test strip (mass/volume)Ordered By: Pooja Cat 44-53-1474Mpzihtu Auto test strip (U) [Mass/Vol]Normal mg/dLNormal [facility] HospitalUrine hemoglobin detection by automated test stripOrdered By: Pooja Cat 25-41-8076Oopnkfeibv Auto test strip Ql (U) 3+NegativeMercy Health – The Jewish HospitalUrine leukocyte esterase detection by automated test stripOrdered By: Pooja Cat on 61-12-8515Oxgimbzpn esterase Auto test strip Ql (U)2+NegativeMercy Health – The Jewish HospitalUrine sediment crystal identification by light microscopyOrdered By: Pooja Cat on 09-63-1656Bvzmfuhi LM Nom (Urine sed)None seen [HPF][facility] Jewish HospitalUrobilinogen Auto test strip (U) [Mass/Vol]Ordered By: Pooja Cat on 95-14-4389Kbtlxcoblqtw (U) [Mass/Vol]Normal mg/dLNormalMercy Health – The Jewish HospitalWBC Auto (Bld) [#/Vol]Ordered By: Pooja Cat on 53-62-1369IUY (Bld) [#/Vol]14.2 10*3/uL3.8-11.6FAccess Hospital DaytonpH Auto test strip (U)Ordered By: Pooja Cat on 17-69-3045sZ (U)5.0 [pH]5.0-9.0[facility] HospitalCOVID-19 Detected/Not DetectedOrdered By: Rebecca Mcmillan on 94-39-1348RQED-CoV-2 (COVID-19) RNA JEFF+non-probe Ql (Nph)Not detectedNot DetectAvita Health System Galion HospitalComment on above:This is a duplicate RP2.1 COVID (PCR) result to be used for statistical tracking purpose only.No Panel InformationOrdered By: Rebecca Mcmillan on 05-15-8979Cfwcqyqntsv Panel (PCR) [facility] HospitalCovid-19 PCR (CVDTBH)on 34-49-6870ZOAA-CoV-2 (COVID-19) RNA JEFF+probe Ql (Unsp spec)Not detectedNormalNOT DETECTEDThe Salem City HospitalComment on above:Result Comment: When diagnostic testing is negative, the [...] for this test is supported by the [employer] Operator of Health and Human Service's declaration that circumstances exist to justify the emergency use of in vitro diagnostics for the detection and/or diagnosis of the virus that causes COVID-19. This EUA will remain in effect for the duration of the COVID-19 declaration justifying emergency of IVDs, unless it is terminated or revoked by the FDA (after which the test may no longer be used).Performed By: #### CVDTBH #### [facility] [address] [place] [address] Dr. Chencho FabianCovid-19 PCR ([facility])on 56-78-0671HYJP-CoV-2 (COVID-19) RNA JEFF+probe Ql (Unsp spec)Not detectedNormalNOT DETECTEDAultman Alliance Community Hospital Comment on above:Result Comment: When diagnostic testing is negative, the [...] for this test is supported by the [employer] Operator of Health and Human Service's declaration that circumstances exist to justify the emergency use of in vitro diagnostics for the detection and/or diagnosis of the virus that causes COVID-19. This EUA will remain in effect for the duration of the COVID-19 declaration justifying emergency of IVDs, unless it is terminated or revoked by the FDA (after which the test may no longer be used).Performed By: #### CVDTBH #### [facility] [address] [place] [address] Dr. Chencho FabianQUANTIFERON TB GOLD PLUSon 62-24-5107QghhnfTTIOS CriteriaComment NormalAultman Alliance Community HospitalComment on above:Result Comment: The QuantiFERON-TB Gold Plus result is determined by subtracting the Nil value from either TB antigen (Ag) tube. The mitogen tube serves as a control for the test.Performed By: #### QNTTB #### [facility] [address] [place] [address] Dr. Chencho So IncubationIncubation performed.NormalAultman Alliance Community HospitalComment on above:Performed By: #### QNTTB #### [facility] [address] [place] [address] Dr. Chencho So Mitogen Value>10.00NormalThe [facility] HospitalComment on above:Performed By: #### QNTTB #### [facility] [address] [place] [address] Dr. Chencho So Nil Value0.05 IU/mLNormalAultman Alliance Community HospitalComment on above:Performed By: #### QNTTB #### [facility] [address] [place] [address] Dr. Chencho So TB1 Ag Value0.05 IU/mLNUniversity [facility]als [facility] Comment on above:Performed By: #### QNTTB #### [facility] [address] [place] [address] Dr. Chencho So TB2 Ag Value0.07 IU/mLNUniversity Hospitals Beachwood [facility] Comment on above:Performed By: #### QNTTB #### [facility] [address] [place] [address] Dr. Chencho So-TB Gold PlusNegativeNormalNegativeAultman Alliance Community HospitalComment on above:Result Comment: Chemiluminescence immunoassay methodologyPerformed By: #### QNTTB #### [facility] [address] [place] [address] Dr. Chencho Barfield B SURFACE ANTIBODY, QUANTon 44-57-3071Lrzicelxw B Surf AB Jlfrv625.0 mIU/mLNormalImmunity>9.9[facility] HospitalComapex medical center on above: Result Comment: Status of Immunity Anti-HBs Level Inconsistent with Immunity 0.0 - 9.9 Consistent with Immunity >9.9Performed By: #### HEPBSRF #### [facility] [address] [place] [address] Dr. Chencho Chao IMMUNITYon 48-36-5158Ikhjh Abs, IgG26.5 AU/mLNormalImmune >10.9The [facility] HospitalComment on above:Result Comment: Negative <9.0 Equivocal 9.0 - 10.9 Positive >10.9 A positive result generally indicates past exposure to Mumps virus or previous vaccination.Performed By: #### MMRIMMU #### [facility] [address] [place] [address] Dr. Chencho Melton Antibodies, IgG17.60 indexNormalImmune >0.99The [facility] HospitalComment on above:Result Comment: Non-immune <0.90 Equivocal 0.90 - 0.99 Immune >0.99Performed By: #### MMRIMMU #### [facility] [address] [place] [address] Dr. Chencho Olivierbedavide Ab, NhQ289.0 AU/mLNormalImmune >16.4The [facility] Comment on above:Result Comment: Negative <13.5 Equivocal 13.5 - 16.4 Positive >16.4 Presence of antibodies to Rubeola is presumptive evidence of immunity except when acute infection is suspected.Performed By: #### MMRIMMU #### [facility] [address] [place] [address] Dr. Chencho FabianVARCHEMO IGG ABon 14-62-1719Nyolrwqwe Zoster WtU652 indexNormal Immune >165The [facility] HospitalComment on above:Result Comment: Negative <135 Equivocal 135 - 165 Positive >165 A positive result generally indicates exposure to the pathogen or administration of specific immunoglobulins, but it is not indication of active infection or stage of disease.Performed By: #### VARCEL #### [facility] [address] [place] [address] Dr. Chencho FabianCoding Summary.on 63-20-0613Sqxcfb Summary.CODING DATE: 11/24/2019 FINAL [facility] STATUS: Home (Routine DC) PAYOR: [place] ADMIT DX: REASON FOR VISIT DX: R63.5 [...] By: Kianna Dumont Date Saved: 11/24/2019 11:28 amNormalChillicothe HospitalInsulin Lvlon 05-06-6676Xwuocbv Qn14.6 mcIU/mL2.6-24.9Ch[facility]icothe HospitalComment on above:Result Comment: Performed at: [facility] [address] [id number] PhD Rich Mcclellanformed By: #### [id number], [id number], [id number] #### [facility] [address] [place], [place] [address]Eibkykqqvt Clinical Summaryon 63-31-2029Tnilughjmu Clinical Summary{[id number]}CD:[id number] Memorial HospitalConsent for Treatmenton 16-35-2938Byilvqt for Treatment [id number]#1.00CD:127NormSt. Charles HospitalGlu Fastingon 78-04-0644Fszdwfv [Mass/Vol]91 mg/sRHsrrqj07-94CsytigChillicothe HospitalComment on above:Performed By: #### [id number], [id number], [id number] #### [facility] [address], [place] [address]Ftkxjapcii Office/Clinic Noteon 44-65-4294Uwjozphisb Office/Clinic NoteChief Complaint Discuss if she has Possible PCOS. Obstetric History History (0,0,0,0) No previous pregnancies history have been recorded History of Present Illness 19 y/o here for possible PCOS. Her mother was diagnosed with it at this age and wanted to get checked out. 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 States [...] try to get running and walking and YouTube cardio videos about 1-2 days per week. [...] for PCOS at this time. Discussed how metabolismchanges with aging. Discussed healthy diet focusing on fruits, vegetables, lean proteins, whole grains, and limiting sugars and empty calories. Recommend exercising 30 minutes per day at least 5 daysper week. Plan to check thyroid to be sure. Also plan to check insulin level and fasting glucose asinsulin resistance . Ordered: Glucose Fasting Insulin Level [...] prescribes her the sertraline. Change in dose ormedication or addition of counseling may be warranted. 4. Trouble in sleeping (G47.9: Sleep disorder, unspecified) See problem 3. Follow-up No qualifying data available Problem List/Past Medical History Ongoing Fatigue Irritability and anger Trouble in sleeping Weight gain Historical No qualifying data Medications drospirenone/ethinyl estradiol/levomefolate biphasic 3 mg-0.03 mg-0.451 mg oral tablet, [...] Hypertension: Father. Primary malignant neoplasm of colon: Grandparent.[facility] HospitalComment on above:Result Comment: Electronically Signed By: Ave PIEDRA\.jericho\Date and Time Signed: 11/06/19 09:52 EDTTSH With T4fr Reflexon 43-61-8810RFQ Qn2.63 mcIU/mLNormal0.34-5.60Chillicothe HospitalComment on above:Performed By: #### [id number], [id number], [id number] #### [facility] [address], [place] [address]Hcliaqzdcr Office/Clinic Noteon 47-57-3674Kuhddedofb Office/Clinic NoteChief Complaint Several months had itching. States she [...] no lesions. She said her family doctor lookedat it and gave her lotion and diflucan. [...] intact, sensation intact, motor intact, station & gaitnormal. Psych: oriented to all spheres, affect and [...] improvement 1. Vaginitis (N76.0: Acute vaginitis) Orders: betamethasone-clotrimazole topical, 1 oziel, Topical, BID, 15 gram, Refill(s) 0, [facility],165.5, cm, 06/20/19 13:05:00 EDT, Height/Length Measured, 65.3, kg, 06/20/19 13:05:00 EDT, Weight Measured fluconazole, 150 mg = 1 tab(s), Oral, q72hr, # 2 tab(s), Refills(s) 0, Pharmacy: [facility], 165.5, cm, 06/20/19 13:05:00 EDT, Height/Length Measured, 65.3, kg, 06/20/19 13:05:00 EDT, WeightMeasured Follow-up With When Contact Information Madhuri Vilchis DO In [address] [place] [address]- [email or web address] Additional Instructions: Problem List/Past Medical History Ongoing No qualifying data Historical No qualifying data Medications Diflucan 150 mg Tab, 150 mg= 1 tab(s), Oral, q72hr drospirenone/ethinyl estradiol/levomefolate biphasic 3 mg-0.03 mg-0.451 mg oral tablet, [...] Hypertension: Father. Primary malignant neoplasm of colon: Grandparent.[facility] HospitalComment on above:Result Comment: Electronically Signed By: Madhuri Vilchis DO\.br\Date and Time Signed: 06/20/19 13:37 EDT Vital Signs Date TimeVital SignValuePerforming IebltifvmTijauewv84-22-8805 10:52-0400Body fwacgs19.36 kgPHYSICIAN [facility]10-01-20[facility] 10:52-0400Diastolic blood rjjmfiku59 mm[Hg]PHYSICIAN [facility]10-01-2025 10:52-0400Heart rate80 /minPHYSICIAN [facility]10-01-2025 10:52-0400Respiratory rate20 /min PHYSICIAN [facility]10-01-2025 10:52-7198RcJ8% (BldA) [Mass fraction]98 %PHYSICIAN [facility] 11-15-2024 10:52-0400Systolic blood mm[Hg]PHYSICIAN [facility]09-04-2025 10:14-0400Body mass index (BMI) [Ratio]31.58 kg/k1Gsibixvl Rinkes DO Work Phone: [facility] HealthStdpgcllnj52-08-5992 10:14040Body .46 kgKathleen Rinkes DO Work Phone: [facility] HealthBfgauzkzpw80-52-9916 10:14040Diastolic blood iukauihc64 mm[Hg]Mandy Rinkes DO Work Phone: [facility] HealthQacrykekgw72-98-3016 10:140400Systolic blood rfhpekhw410 mm[Hg]Mandy [employer] DO Work Phone: [facility] HealthVlsgjjsqdy93-06-0418 10:170400Body weight0 kg [facility] CenterComment on above:Order Comment: [facility] performed at: [employer] [facility], [address] [place] [address], , [employer]: Reece Huizar MD PhD\X0D0A\[facility] Collection Date/Time: \X0D0A\[facility] Results Received Date/Time: 20241005\X0D0A\[facility] Reported Date/Time: [id number] Ureteral stone with hydronephrosis [N13.2] LYLA (acute kidney injury) [N17.9] Pre-op diagnosis:Result Comment: \X0D0A\Formalin, surgical gel, tape adhesive or transport\X0D0A\media interfere with the analytical procedure.\X0D0A\Follow up testing with the UroRisk(R) Panel is\X0D0A\suggested foraffected samples, if clinically\X0D0A\indicated.\X0D0A\ \X0D0A\This test was developed and its brad tical\X0D0A\performance characteristics have been determined\X0D0A\by [employer]. It has notbeen cleared or\X0D0A\approved by the FDA. This assay has been validated\X0D0A\pursuant to the CLIAregulations and is used for\X0D0A\clinical purposes.\X0D0A\ \X0D0A\Test performed by [employer]\X0D0A\ [id number] [facility],\X0D0A\ [place] [address]\X0D0A\ \X0D0A\ \X0D0A\Scrap Worker: Kaela Urbano MD,PHD,[place] \X0D0A\ \X0D0A\[facility],\X0D0A\[employer],\X0D0A\[id number] [place], [place] \X0D0A\Reece Huizar M.D., Ph.D., Director of Laboratories\X0D0A\ , CLIA [id number] By: #### [id number] #### [address] [phone] 16:03-0400Body mass index (BMI) [Ratio]32.1 kg/m2 Mandy Patel DO Work Phone: [facility] HealthGdejyccmyw71-03-1757 16:03-0400Body pvmoiq03.82 kgMandy Patel DO Work Phone: [facility] HealthYpledxioks60-89-3574 16:03-0400Diastolic blood mm[Hg]Mandy Patel DO Work Phone: [facility] HealthTbinrudunp00-07-1671 16:03-0400Systolic blood efkylfkh879 mm[Hg]Mandy Patel DO Work Phone: 1(542)423[facility] HealthVsmsvkmxhg11-80-9827 09:10-0400Body temperature 98.5 [degF]Moe Mcmillan DO Work Phone: 4(424)[address] [place], [place] 0633607-28-2025 09:10-0400 Diastolic blood ligshttl33 mm[Hg]Moe Mcmillan DO Work Phone: 2(216)[address] [place], [place] 0633607-28-2025 09:10-0400 Heart gwlc544 /Lisa. Alok Mcmillan DO Work Phone: 1(168)[address] [place], [place] 0633607-28-2025 09:10-0400 Respiratory rate16 /Lisa. Alok Mcmillan DO Work Phone: 7(470)[address] [place], [place] 0633607-28-2025 09:10-0400 SaO2% (BldA) [Mass fraction]96 %Moe Mcmillan DO Work Phone: 4(506)[address] [place], [place] 0633607-28-2025 09:10-0400 Systolic blood mm[Hg]Moe Mcmillan DO Work Phone: 8(984)[address] [place], [place] 0633607-26-2025 05:21-0400 Body tuwget742.02 cmG. Alok Mcmillan DO Work Phone: 3(551)[address] [place], [place] 0633607-26-2025 05:21-0400 Body lemfwy89.25 kgG. Alok Mcmillan DO Work Phone: 1(246)[address] [place], [place] 0633607-24-2025 14:14-0400 Body mass index (BMI) [Ratio]35.87 kg/j9Ehupaxiy Rinkes DO Work Phone: 1(753)[facility]-2514[facility] HealthCuvjrzrsjo80-35-3594 14:14-0400Body sahdox19.8 kg Mandy Patel DO Work Phone: 1(701)[facility]-4569[facility] HealthJfquuoygjh11-37-9924 14:140400Diastolic blood mm[Hg]Mandy Patel DO Work Phone: [facility] HealthZptbqdtwhw50-99-3893 14:140400Systolic blood ypucebrt426 mm[Hg]Mandy Patel DO Work Phone: 1(041)[facility] HealthYvzzoudvbk96-56-7513 14:24-0400Body temperature 97.3 [degF]Moe Mcmillan DO Work Phone: 1(854)[address] [place], [place] 0633607-18-2025 14:24-0400 Diastolic blood lmlapbim46 mm[Hg]Moe Mcmillan DO Work Phone: 1(981)[address] [place], [place] 0633607-18-2025 14:24-0400 Heart rate91 /Lisa. Alok Mcmillan DO Work Phone: 1(147)[address] [place], [place] 0633607-18-2025 14:24-0400 Respiratory rate16 /Lisa. Alok Mcmillan DO Work Phone: 1(152)[address] [place], [place] 0633607-18-2025 14:24-0400 SaO2% (BldA) [Mass fraction]97 %Moe Mcmillan DO Work Phone: 1(503)[address] [place], [place] 0633607-18-2025 14:24-0400 Systolic blood ygcmgbty887 mm[Hg]Moe Mcmillan DO Work Phone: 1(467)[address] [place], [place] 0633607-18-2025 14:10-0400 Body kuopyh535.02 cmG. Alok Mcmillan DO Work Phone: 1(214)[address] [place], [place] 0633607-18-2025 14:10-0400 Body ekslbl415 kgG. Alok Mcmillan DO Work Phone: 1(275)[address] [place], [place] 0633607-17-2025 13:16-0400 Body mass index (BMI) [Ratio]35.87 kg/b0Ghlitdha Rinkes DO Work Phone: 1(003)[facility] [place], [place] [address]Zwmjvgajdf34-09-7208 13:16-0400Body .8 kg Mandy Rinkes DO Work Phone: 1(230)[facility] [place], [place] [address]Vdpwrwhfqc78-04-6585 13:16-0400Diastolic blood enerifpp58 mm[Hg]Mandy Rinkes DO Work Phone: 1(010)[facility] [place], [place] [address]Mqwhfgvzmh38-78-0934 13:16-0400Systolic blood swqgyzsw532 mm[Hg]Mandy Rinkes DO Work Phone: 1(536)[facility] [place], [place] [address]Tijzgibvqb07-28-7402 13:57-0400Body mass index (BMI) [Ratio]35.87 kg/e3Hbviucsi Rinkes DO Work Phone: 1(846)[facility] [place], [place] [address]Hkafzbhosr51-01-9639 13:57-0400Body kzitqh79.8 kg Mandy Rinkes DO Work Phone: 1(293)[facility] [place], [place] [address]Cvwtkdsxoh33-70-2876 13:57-0400Diastolic blood wexcixgm67 mm[Hg]Mandy Rinkes DO Work Phone: 1(893)[facility] [place], [place] [address]Chcdtmrzub57-45-9973 13:57-0400Systolic blood gfupprqa287 mm[Hg]Mandy Rinkes DO Work Phone: 1(984)[facility] [place], [place] [address]Kusegckotv57-70-5938 10:39-0400Body mass index (BMI) [Ratio]36.05 kg/i1Dhtcfvyb Rinkes DO Work Phone: 1(988)[facility] [place], [place] [address]Uwkeybiowl26-79-7212 10:39-0400Body .25 kgKathleen Rinkes DO Work Phone: 1(302)[facility] [place], [place] [address]Uxulijcwhz35-81-4541 10:39-0400Diastolic blood ufzuhwvp43 mm[Hg]Mandy Rinkes DO Work Phone: 1(964)[facility] [place], [place] [address]Jbwvnwuqrx67-37-6219 10:39-0400Systolic blood bnfuhjmp515 mm[Hg]Mandy Rinkes DO Work Phone: 1(201)[facility] [place], [place] [address]Hahkqwjvei76-87-1828 16:16-0400Body mass index (BMI) [Ratio]35.53 kg/r1SekiyaocMandy Patel DO Work Phone: [facility] HealthAedbmoasel31-84-1058 16:16-0400Body pyteiv91.89 kgMandy Patel DO Work Phone: [facility] HealthYybytrwsja00-49-2243 16:16-0400Diastolic blood jagtxqln17 mm[Hg]Mandy Patel DO Work Phone: [facility] HealthOhtglvxeul52-23-3060 16:16-0400Systolic blood ynjlxtlz066 mm[Hg]Mandy Patel DO Work Phone: 1(221)[address]06-19-2025 14:08-0400Body sndlib760.02 cmG. Alok Mcmillan DO Work Phone: 1(589)[address] [place], [place] 0633606-19-2025 14:08-0400 Body mass index (BMI) [Ratio]37 kg/m2G. Alok Mcmillan DO Work Phone: 1(876)[address] [place], [place] 0633606-19-2025 14:08-0400 Body juyana36.8 kgG. Alok Mcmillan DO Work Phone: 1(464)[address] [place], [place] 0633606-19-2025 14:08-0400 Diastolic blood zhlyzzrw01 mm[Hg]Moe Mcmillan DO Work Phone: 1(415)[address] [place], [place] 0633606-19-2025 14:08-0400 Heart rate95 /Lisa. Alok Mcmillan DO Work Phone: 1(737)[address] [place], [place] 0633606-19-2025 14:08-0400 Respiratory rate20 /Lisa. Alok Mcmillan DO Work Phone: 1(363)[address] [place], [place] 0633606-19-2025 14:08-0400 SaO2% (BldA) [Mass fraction]98 %Moe Mcmillan DO Work Phone: 1(122)[address] [place], [place] 0633606-19-2025 14:08-0400 Systolic blood nnqlstgy044 mm[Hg]Moe Mcmillan DO Work Phone: 1(374)[address] [place], [place] 0633606-10-2025 13:46-0400 Body mass index (BMI) [Ratio]34.84 kg/h0LuoywlklMandy Patel DO Work Phone: 1(862)[facility] [place], [place] [address]Sixcvvszhw19-75-7767 13:46-0400Body aftmqi13.08 kgMandy Patel DO Work Phone: 1(110)[facility] CenterLaw[facility] HospitalCarondelet HealthJwbzfffmmw79-83-1708 13:46-0400Diastolic blood ftqjnrux89 mm[Hg]Mandy Patel DO Work Phone: 1(516)969-[address] [place], [place] [address]Rkdwoifyow89-57-8178 13:46-0400Systolic blood agbrcwdd729 mm[Hg]Mandy Patel DO Work Phone: 1(403)[address] [place], [place] 0882106-07-2025 09:25-0400Body ziesan073.02 cmG. Alok Mcmillan DO Work Phone: 1(858)[address] [place], [place] 0633606-07-2025 09:25-0400 Body kgG. Alok Mcmillan DO Work Phone: 1(400)[address] [place], [place] 0633606-07-2025 09:24-0400 Body beyfzekxngu66.5 [degF]Moe Mcmillan DO Work Phone: 3(885)[address] [place], [place] 0633606-07-2025 09:24-0400 Diastolic blood amrysgoq39 mm[Hg]Moe Mcmillan DO Work Phone: 1(346)[address] [place], [place] 0633606-07-2025 09:24-0400 Heart brja317 /Lisa. Alok Mcmillan DO Work Phone: 4(970)[address] [place], [place] 0633606-07-2025 09:24-0400 Respiratory rate18 /Lisa. Alok Mcmillan DO Work Phone: 2(116)[address] [place], [place] 0633606-07-2025 09:24-0400 SaO2% (BldA) [Mass fraction]98 %Moe Mcmillan DO Work Phone: 1(385)[address] [place], [place] 0633606-07-2025 09:24-0400 Systolic blood gdgxjlox804 mm[Hg]Moe Mcmillan DO Work Phone: 1(419)[address] [place], [place] 0633605-27-2025 14:46-0400 Body mass index (BMI) [Ratio]34.33 kg/j3FmhsrowjMandy Patel DO Work Phone: 1(272)[address] [place], [place] 0882105-27-2025 14:46-0400Body aaihsk09.72 kgMandy Patel DO Work Phone: 1(634)[address] [place], [place] [address]C[facility] HealthPbqcegmhdw17-98-1644 14:46-0400Diastolic blood gihkqnta21 mm[Hg]Mandy Patel DO Work Phone: 1(772)[address] [place], [place] 0882105-27-2025 14:46-0400Systolic blood ocfkcvwn715 mm[Hg]Mandy Patel DO Work Phone: 1(247)[address] [place], [place] 0882105-18-2025 07:26-0400Body temperature 98.3 [degF]Moe Mcmillan DO Work Phone: 1(063)[address] [place], [place] 0633605-18-2025 07:26-0400 Diastolic blood xqjjukzd94 mm[Hg]Moe Mcmillan DO Work Phone: 1(593)[address] [place], [place] 0633605-18-2025 07:26-0400 Heart rate91 /Lisa. Alok Mcmillan DO Work Phone: 1(301)[address] [place], [place] 0633605-18-2025 07:26-0400 Respiratory rate18 /Lisa. Alok Mcmillan DO Work Phone: 1(230)[address] [place], [place] 0633605-18-2025 07:26-0400 SaO2% (BldA) [Mass fraction]95 %Moe Mcmillan DO Work Phone: 1(470)[address] [place], [place] 0633605-18-2025 07:26-0400 Systolic blood gqpsmiwi026 mm[Hg]Moe Mcmillan DO Work Phone: 1(614)[address] [place], [place] 0633605-17-2025 22:16-0400 Body bzbkby429.02 cmGAdriana Larsoncarin DO Work Phone: 1(942)[address] [place], [place] 0633605-17-2025 22:16-0400 Body llyudk07.26 kgG. Alok Baughkenzie DO Work Phone: 1(853)[address] [place], [place] 0633605-13-2025 14:13-0400 Body mass index (BMI) [Ratio]33.99 kg/j7TtqbvminMandy Patel DO Work Phone: 1(593)[address] [place], [place] 0882105-13-2025 14:13-0400Body yvtnvg08.81 kgKatvamsi Patel DO Work Phone: 1(733)[address] [place], [place] 0882105-13-2025 14:13-0400Diastolic blood mfeqhczq98 mm[Hg]Mandy Patel DO Work Phone: 1(550)[address] [place], [place] 0882105-13-2025 14:13-0400Systolic blood iwspiufg850 mm[Hg]Mandy Patel DO Work Phone: 1(841)[address] [place], [place] 0882105-13-2025 08:20-0400Body temperature 98.1 [degF]Moe Mcmillan DO Work Phone: 1(079)[address] [place], [place] 0633605-13-2025 08:20-0400 Diastolic blood enpptfln89 mm[Hg]Moe Mcmillan DO Work Phone: 1(230)[address] [place], [place] 0633605-13-2025 08:20-0400 Heart rate99 /Lisa. Alok Mcmillan DO Work Phone: 1(310)[address] [place], [place] 0633605-13-2025 08:20-0400 Respiratory rate16 /Lisa. Alok Mcmillan DO Work Phone: 1(930)[address] [place], [place] 0633605-13-2025 08:20-0400 SaO2% (BldA) [Mass fraction]97 %Moe Mcmillan DO Work Phone: 1(494)[address] [place], [place] 0633605-13-2025 08:20-0400 Systolic blood mm[Hg]Moe Mcmillan DO Work Phone: 1(244)[address] [place], [place] 0633605-06-2025 13:34-0400 Diastolic blood rfpatnka68 mm[Hg]Moe Mcmillan DO Work Phone: 1(881)[address] [place], [place] 0633605-06-2025 13:34-0400 Heart rate98 /Lisa. Alok Mcmillan DO Work Phone: 1(117)[address] [place], [place] 0633605-06-2025 13:34-0400 Respiratory rate18 /Lisa. Alok Mcmillan DO Work Phone: 1(750)[address] [place], [place] 0633605-06-2025 13:34-0400 SaO2% (BldA) [Mass fraction]98 %GAdriana Mcmillan DO Work Phone: 1(727)[address] [place], [place] 0633605-06-2025 13:34-0400 Systolic blood mm[Hg]G. Alok Mcmillan DO Work Phone: 1(865)[address] [place], [place] 0633604-15-2025 14:10-0400 Body mass index (BMI) [Ratio]32.61 kg/n1DvuhitsfMandy Patel DO Work Phone: 1(513)[address] [place], [place] 0882104-15-2025 14:10-0400Body qnailb07.18 kgKatvamsi Patel DO Work Phone: 1(157)[address] [place], [place] 0882104-15-2025 14:10-0400Diastolic blood mlyxrgcz85 mm[Hg]Mandy Patel DO Work Phone: 1(003)[address] [place], [place] 0882104-15-2025 14:10-0400Systolic blood kpivbhwk024 mm[Hg]Mandy Patel DO Work Phone: 1(504)[address] [place], [place] 0882104-10-2025 14:32-0400Body ezggom67.08 kgG. Alok Mcmillan DO Work Phone: 1(170)[address] [place], [place] 0633604-10-2025 14:32-0400 Diastolic blood xhxmkagx89 mm[Hg]Moe Mcmillan DO Work Phone: 1(100)[address] [place], [place] 0633604-10-2025 14:32-0400 Heart rate90 /Lisa. Alok Mcmillan DO Work Phone: 1(012)[address] [place], [place] 0633604-10-2025 14:32-0400 Respiratory rate20 /Lisa. Alok Mcmillan DO Work Phone: 1(195)[address] [place], [place] 0633604-10-2025 14:32-0400 SaO2% (BldA) [Mass fraction]96 %Moe Mcmillan DO Work Phone: 1(667)722-[address] [place], [place] 4676604-10-2025 14:32-0400 Systolic blood sjmgzafa980 mm[Hg]Moe Mcmillan DO Work Phone: 1(295)[address] [place], [place] 0633602-18-2025 14:13-0500 Body mass index (BMI) [Ratio]31.24 kg/r9Kvthjeis Rinkes DO Work Phone: 1([phone] [place], [place] 0882102-18-2025 14:13-0500Body nhmtyn76.56 kgKathleen Rinkes DO Work Phone: [phone]([phone] [place], [place] 0882102-18-2025 14:13-0500Diastolic blood mm[Hg]Mandy Rinkes DO Work Phone: [phone] [place], [place] 0882102-18-2025 14:13-0500Systolic blood gtluxxmt778 mm[Hg]Mandy Rinkes DO Work Phone: [phone] [place], [place] 0882101-21-2025 13:16-0500Body mass index (BMI) [Ratio]30.55 kg/z0Qqwailmb Rinkes DO Work Phone: 1([phone] [place], [place] 0882101-21-2025 13:16-0500Body spkvut24.74 kgKathleen Rinkes DO Work Phone: [phone] [place], [place] 0882101-21-2025 13:16-0500Diastolic blood omqxpdhd77 mm[Hg]Mandy Rinkes DO Work Phone: 1(006)[address] [place], [place] 0882101-21-2025 13:16-0500Systolic blood ennhlddc681 mm[Hg]Mandy Rinkes DO Work Phone: 1(898)[address] [place], [place] 0882101-08-2025 14:58-0500Body temperature 98.1 [degF]Moe Mcmillan DO Work Phone: 1(228)[facility] [place], [place] 4676601-08-2025 14:58-0500 Body xqruvg48.1 kgMoe Mcmillan DO Work Phone: 1(817)430-[address] [place], [place] 4676601-08-2025 14:58-0500 Diastolic blood olytgkzs07 mm[Hg]Moe Mcmillan DO Work Phone: 1(808)[address] [place], [place] 0633601-08-2025 14:58-0500 Heart rate73 /Lisa. Alok Mcmillan DO Work Phone: 1(105)[address] [place], [place] 0633601-08-2025 14:58-0500 Respiratory rate20 /Lisa. Alok Mcmillan DO Work Phone: 1(136)[address] [place], [place] 0633601-08-2025 14:58-0500 SaO2% (BldA) [Mass fraction]100 %Moe Mcmillan DO Work Phone: 1(728)[address] [place], [place] 0633601-08-2025 14:58-0500 Systolic blood exmcxlyz750 mm[Hg]Moe Mcmillan DO Work Phone: 1(352)[address] [place], [place] 0633611-05-2024 10:44-0500 Body tahpep636 cmJuligeoff Ortega MD Work Phone: [phone]11-05-2024 10:44-0500Body mass index (BMI) [Ratio]31.53 kg/w5CediafuxJessica Ortega MD Work Phone: [phone]11-05-2024 10:44-0500Body .74 kgJessica Ortega MD Work Phone: [phone]10-28-2024 13:56-0400Body .7 cmMarina Arthur MD Work Phone: [phone]10-28-2024 13:56-0400Body mass index (BMI) [Ratio]31.85 kg/f6MfzpfMarina Arthur MD Work Phone: [phone]10-28-2024 13:56-0400Body jqakoq43.2 kgMinbob Arthur MD Work Phone: [phone]10-28-2024 13:56-0400Diastolic blood nmzthkco57 mm[Hg]Marina Arthur MD Work Phone: [facility]10-28-2024 13:56-0400Systolic blood mm[Hg]Marina Arthur MD Work Phone: [phone]09-04-2024 16:02-0400Body .6 cmGeorkenton Mcmillan DO Work Phone: [facility]Bwbffpkcdw61-51-4297 16:02-0400Body mass index (BMI) [Ratio]30.38 kg/q9Pfprsbkenton Mcmillan DO Work Phone: 1(812)034-[address] [place], [place] [address]Eixosthlib11-68-2550 16:02-0400Body temperature 97.3 [degF]Anette Mcmillan DO Work Phone: [facility] HealthSpakztbigd62-36-0348 16:02-0400Body .29 kgGeorkenton Mcmillan DO Work Phone: [facility] HealthCkvclmuguk09-71-3122 16:02-0400Diastolic blood kwyojnlh92 mm[Hg]Anette Mcmillan DO Work Phone: [facility] HealthCukkdanftx10-41-1136 16:02-0400Heart rate90 /min Anette Mcmillan DO Work Phone: [facility] HealthBqbkiwziuj98-64-4117 16:02-9749KsO6% (BldA) [Mass fraction]96 %Anette Mcmillan DO Work Phone: 1(374)052-[address] [place], [place] [address]Effxlydrxm27-99-2452 16:02-0400Systolic blood mm[Hg]Anette Mcmillan DO Work Phone: 1(867)378-[address] [place], [place] [address]Hcfrfrykzv47-87-4195 15:00-0400Body temperature 97.8 [degF]DO Moe Mcmillan Work Phone: 1(831)938-[address] [place], [place] 4676606-19-2024 15:00-0400 Body wmzaxi10.37 kgDO Moe Mcmillan Work Phone: 1(358)798-[address] [place], [place] 4676606-19-2024 15:00-0400 Diastolic blood mm[Hg]DO Moe Mcmillan Work Phone: 1(367)[address] [place], [place] 0633606-19-2024 15:00-0400 Heart rate67 /minDO Moe Mcmillan Work Phone: 1(690)[address] [place], [place] 0633606-19-2024 15:00-0400 Respiratory rate20 /minDO Moe Mcmillan Work Phone: 1(427)[address] [place], [place] 0633606-19-2024 15:00-0400 SaO2% (BldA) [Mass fraction]97 %DO Moe Mcmillan Work Phone: 1(250)[address] [place], [place] 0633606-19-2024 15:00-0400 Systolic blood mm[Hg]DO Moe Mcmillan Work Phone: 1(910)[address] [place], [place] 0633605-29-2024 14:23-0400 Body .2 [degF]DO Moe Mcmillan Work Phone: 1(194)[address] [place], [place] 0633605-29-2024 14:23-0400 Body gbfyns50.28 kgDO Moe Mcmillan Work Phone: 1(255)[address] [place], [place] 0633605-29-2024 14:23-0400 Diastolic blood ynewhkws42 mm[Hg]DO Moe Mcmillan Work Phone: 1(921)[address] [place], [place] 0633605-29-2024 14:23-0400 Heart rate72 /minDO Moe Mcmillan Work Phone: 1(976)[address] [place], [place] 0633605-29-2024 14:23-0400 Respiratory rate16 /minDO Moe Mcmillan Work Phone: 1(424)[address] [place], [place] 0633605-29-2024 14:23-0400 SaO2% (BldA) [Mass fraction]9 %DO Moe Mcmillan Work Phone: 1(187)[address] [place], [place] 0633605-29-2024 14:23-0400 Systolic blood psaddpgu786 mm[Hg]DO Moe Mcmillan Work Phone: 1(055)[address] [place], [place] 0633612-14-2023 21:19-0500 Diastolic blood mm[Hg]DO Moe Mcmillan Work Phone: 1(639)[facility] [place], [place] 4676612-14-2023 21:19-0500 Heart rate88 /IvonneO Moe Mcmillan Work Phone: 8(422)[address] [place], [place] 0633612-14-2023 21:19-0500 Respiratory rate20 /minDO Moe Mcmillan Work Phone: 1(712)[address] [place], [place] 0633612-14-2023 21:19-0500 SaO2% (BldA) [Mass fraction]96 %DO Moe Mcmillan Work Phone: 1(582)[address] [place], [place] 0633612-14-2023 21:19-0500 Systolic blood wzmupguy291 mm[Hg]DO Moe Mcmillan Work Phone: 1(950)[address] [place], [place] 0633612-14-2023 17:26-0500 Body .02 cmDO Moe Mcmillan Work Phone: 4(805)[address] [place], [place] 0633612-14-2023 17:26-0500 Body ozzjwqofmnv45.9 [degF]DO Moe Mcmillan Work Phone: 5(895)[facility] [place], [place] 4676612-14-2023 17:26-0500 Body daguei86.7 kgDO Moe Mcmillan Work Phone: 5(657)[address] [place], [place] 0633611-03-2021 15:00-0400 Body layisf876.02 cmCameron Clare Other [place] [employer] Other 11-03-2021 15:00-0400Body mass index (BMI) [Ratio] 29.76 kg/j2Cpqvien [employer] Other [place] [employer] Other 11-03-2021 15:00-0400Body loymms48.2 kgCamSuninfo Information Other [place] [employer] Other 11-03-2021 15:00-0400Diastolic blood szmrkuza80 mm[Hg] Joby Sparks Other [facility] Other 11-03-2021 15:00-0400Systolic blood ofjimyph845 mm[Hg] Joby Sparks Other [place] [employer] Other Encounters Encounter DateEncounter TypeCare ProviderFacilityStart: 51-74-3562Kuwsjsnlna RecurringPippa Lane MD[facility] Acute Work Phone: Start: 11-15-2024 End: 85-49-2551rztziljmttJAAMHAKBY [facility] Work Phone: Start: 11-15-2024 End: 86-47-0179Kjimgfc encounter procedureoliva Lane MDKayenta [facility] Center Ambulatory Work Phone: Start: 10-19-2024 End: 13-15-6894Cuwykvdgav care visitMandy Patel DO Work Phone: [facility] Fong OBGYNComment on above: care and examination ([facility])Start: 10-19-2024 End: 97-60-0746vobguycuouBQZXQNZB E RINKESNot AvailableStart: 10-11-2024 End: 63-41-6088qviabigilsRtqhu M. LueFacility:EU BellevueStart: 10-11-2024 End: 08-76-2084Ibjqtnj encounter procedureMirna Aguilera [facility] [place] start: 10-04-2024 End: 03-45-7990citluykxzqSIZTTD Chris [facility] Cent[facility]art: 10-03-2024 End: 16-63-2772qqcctttypjHQOHEWA W PARSELLMerWaterbury Hospitaltart: 10-03-2024 End: 50-19-4807rnkkzfgfexWWNOWWF Du Morillo [facility] Hospitaltart: 10-02-2024 End: 62-26-9742tnrcsiezjwD. Alok Mcmillan DO Work Phone: [facility] Work Phone: Start: 10-02-2024 End: 91-47-0824Hfhiuure ReferredMelissa Cherie Schilling DO-LAB Path Spec [facility] HospStart: 09-21-2024 End: 35-37-7506Wmkpxdszes care visitKathleen E Rinkes DO Work Phone: [facility] [place] OBGYNComment on above: anxiety ([facility]) (Primary Dx); Acute vulvitisStart: 09-21-2024 End: 84-28-6974otlaymzblwHGIDAJPF E RINKESNot AvailableStart: 09-14-2024 End: 73-90-0286Fbwoacq encounter procedureM.D. Rj Aden- Visit Work Phone: Start: 09-14-2024 End: 13-77-6448vfylwpnhoxY. Alok Mcmillan DO Work Phone: [facility] Work Phone: Start: 09-12-2024 End: 15-75-1706Qwforil encounter procedureM.Oliva. Rj Aden- Visit Work Phone: Start: 09-12-2024 End: 96-59-7510sslbuycygfB. Alok Mcmillan DO Work Phone: [facility] Work Phone: Start: 09-10-2024 End: 13-46-6967Tmtatfif Result EncounterCorina Hernandez MD Work Phone: noms External Department UnsolicitedStart: 09-10-2024 End: 71-61-7936Fgexvkfp Result EncounterCorina Hernandez MD Work Phone: noms External Department UnsolicitedStart: 09-09-2024 End: 10-79-0073Cwshtoot Result EncounterCorian Hernandez MD Work Phone: noms External Department UnsolicitedStart: 09-09-2024 End: 95-10-8887Qchfzcvt Result EncounterCorina Hernandez MD Work Phone: noms External Department UnsolicitedStart: 09-08-2024 End: 72-67-9443Ynmzexijgg and management of inpatientMINNA Hernandez-3 [facility] Work Phone: Start: 09-08-2024 End: 46-58-5179Imooalzy Result Andrzej Hernandez MD Work Phone: noms External Department UnsolicitedStart: 09-08-2024 End: 97-32-2908Wiutnagv Result EncounterCorina Hernandez MD Work Phone: noms External Department UnsolicitedStart: 09-07-2024 End: 11-70-8773Zdoibt flowsheetKathleen E Rinkes DO Work Phone: noms SWS OBStart: 09-07-2024 End: 67-70-3861Bjqsst flowsheetKathleen E Rinkes DO Work Phone: noms SWS OBStart: 09-07-2024 End: 55-95-2265Dytibeji flow sheetKathleen E Rinkes DO Work Phone: noms [facility] OBComment on above:38 weeks gestation of ([facility])Start: 09-07-2024 End: 66-83-4089uvgiudirqaUTFJQMAM E RINKESNot AvailableStart: 09-01-2024 End: 94-03-8801Nzffdwiy Result Andrzej Hernandez MD Work Phone: noms External Department UnsolicitedStart: 09-01-2024 End: 00-56-8863Cchnqtmm Result Andrzej Hernandez MD Work Phone: noms External Department UnsolicitedStart: 09-01-2024 End: 67-80-1621Jrimdph encounter procedureMD-NOM[facility] Corina Hernandez-3 [facility] Labor - O/PStart: 09-01-2024 End: 61-46-7480vvohufgwxdY. Robert Kaftan DO Work Phone: [facility] Work Phone: Start: 08-31-2024 End: 11-77-9868Yezlds flowsheetKathleen E Rinkes DO Work Phone: [facility] SWS OBStart: 08-31-2024 End: 25-47-9910Xzbgnn flowsheetKathleen E Rinkes DO Work Phone: [facility] SWS OBStart: 08-31-2024 End: 63-09-4970Pfaztdaj flow sheetKathleen E Rinkes DO Work Phone: NOHO SWS OBComment on above:37 weeks gestation of ([facility])Start: 08-31-2024 End: 93-50-9234Hqqsoxf encounter procedureNoms Sws Ob NurseNOMS SWS OBComment on above:37 weeks gestation of ([facility]); Decreased movements in third trimester, single or unspecified fetus ([facility])Start: 08-31-2024 End: 77-03-5059ywpzjmzgtaASEKNQUC E RINKESNot AvailableStart: 08-29-2024 End: 61-52-8497Jysaxc flowsheetKathleen E Rinkes DO Work Phone: [facility] SWS OBStart: 08-29-2024 End: 22-22-6973Fbhive flowsheetKathleen E Rinkes DO Work Phone: [facility] SWS OBStart: 08-29-2024 End: 49-11-3153Fvcpckws flow sheetKathleen E Rinkes DO Work Phone: [facility] SWS OBComment on above:37 weeks gestation of ([facility])Start: 08-29-2024 End: 88-40-1188lfzsfqzleeSEUAMKVF E RINKESNot AvailableStart: 08-28-2024 End: 92-61-3407QskhlgCmcwig R Kaftan DO Work Phone: noms SWS FM 230Comment on above:Depression, unspecified depression type ; Mixed anxiety and depressive disorderStart: 08-25-2024 End: 27-07-5931Unveti flowsheetKathleen E Rinkes DO Work Phone: NOGX SWS OBStart: 08-25-2024 End: 45-84-5096Zvdfiq flowsheetKathleen E Rinkes DO Work Phone: noms SWS OBStart: 08-25-2024 End: 94-62-4653Dxtvhjiv ReferredKathleen E Rinkes DO-Lab [facility] Work Phone: Start: 08-25-2024 End: 91-54-6917Bgyxlncd flow sheetKathleen E Rinkes DO Work Phone: noms SWS OBComment on above:36 weeks gestation of ([facility]); screening for streptococcus B ([facility])Start: 08-25-2024 End: 01-60-2314koxwbijktuUAdriana Mcmillan DO Work Phone: [facility] Work Phone: Start: 08-08-2024 End: 72-06-1293Wkwbdzsj flow sheetKathleen E Rinkes DO Work Phone: noms SWS OBComment on above:34 weeks gestation of ([facility])Start: 08-08-2024 End: 19-30-9121hpmngoebpbWIUEUGYD E RINKESNot AvailableStart: 08-03-[address] [facility] [place] [facility] Work Phone: Start: 08-03-2024 End: 57-27-6392Vzdokum encounter procedurePippa Lane MDCan[facility] Ambulatory Work Phone: Start: 08-02-2024 End: 55-05-0147BezzxpKgehjt R Kaftan DO Work Phone: noms SWS FM 230Comment on above:Depression, unspecified depression type ; Mixed anxiety and depressive disorderStart: 07-25-2024 End: 78-10-6187Fqdiaszh flow sheetKathleen E Rinkes DO Work Phone: noms [facility] OBComment on above:32 weeks gestation of pregnancyStart: 07-25-2024 End: 04-37-3541glidzronzdINDUXWKT E RINKESNot AvailableStart: 07-22-2024 End: 90-95-3774Ofnmvvofx department patient visitG. Alok Mcmillan DO Work Phone: [facility]-Emergency Room Work Phone: Start: 07-11-2024 End: 72-99-3415Rwcizjyz flow sheetKathleen E Rinkes DO Work Phone: noms [facility] OBComment on above:30 weeks gestation of pregnancyStart: 07-11-2024 End: 24-17-0119cffeozvcunGRQGYXHW E RINKESNot AvailableStart: 07-11-2024 End: 35-76-6556Lnmdtr flowsheetKathleen E Rinkes DO Work Phone: noms [facility] OBStart: 07-11-2024 End: 91-65-4989Bucljq flowsheetKathleen E Rinkes DO Work Phone: noms [facility] OBStart: 07-02-2024 End: 89-24-2691Rbxbwwjj Result Andrzej Hernandez MD Work Phone: noms External Department UnsolicitedStart: 07-02-2024 End: 50-78-7777Gytudgmi Result Andrzej Hernandez MD Work Phone: noms External Department UnsolicitedStart: 07-01-2024 End: 75-85-9726Dcrrvhu encounter procedureG. Alok Mcmillan DO Work Phone: [facility] Labor - O/P Start: 07-01-2024 End: 16-72-3661nsezfmftekVdkrre P JonesFacility:[facility] Hospitaltart: 07-01-2024 End: 13-04-9047Ceaehtlq Result Andrzej Hernandez MD Work Phone: noms External Department UnsolicitedStart: 07-01-2024 End: 31-67-4431Liafdmvj Result EncounterCorina Hernandez MD Work Phone: noms External Department UnsolicitedStart: 06-27-2024 End: 94-26-8572Iczpgclw flow sheetKathleen E Rinkes DO Work Phone: noms SWS OBComment on above:28 weeks gestation of pregnancyStart: 06-27-2024 End: 19-26-3145snzrtzehifDLUTXJQI E RINKESNot AvailableStart: 06-27-2024 Registered RecurringG. Alok Mcmillan DO Work Phone: [facility] [place] [facility] Work Phone: Start: 06-24-2024 End: 00-53-3715Gibjbcx encounter procedureG. Alok Mcmillan DO Work Phone: [facility]-Lab [facility] Work Phone: Start: 06-24-2024 End: 90-46-9004xxipzvjpvdA. Alok Mcmillan DO Work Phone: [facility] Work Phone: Start: 36-27-3351Zbzfuybyjw RecurringG. Alok Mcmillan DO Work Phone: [facility] Work Phone: Start: 05-30-2024 End: 65-80-6706Irkmfqyi flow sheetKathleen E Rinkes DO Work Phone: noms SWS OBComment on above:24 weeks gestation of ; Screening for diabetes mellitus (DM)Start: 05-30-2024 End: 46-54-1193zuxkropibxWBVUTEKV E RINKESNot AvailableStart: 05-30-2024 End: 16-62-7098Lsbqoy flowsheetKathleen E Rinkes DO Work Phone: noms SWS OBStart: 05-30-2024 End: 93-14-1137Hvqitu flowsheetKathleen E Rinkes DO Work Phone: noms [facility] OBStart: 05-25-2024 End: 06-10-1831Aboxbib encounter procedureG. Alok Mcmillan DO Work Phone: [facility] Work Phone: Start: 05-08-2024 End: 41-55-3627kgsugznegnJFDSPM R KAFTANNot AvailableStart: 05-02-2024 End: 02-01-2208jcblkhenoqBBYFEPMV E RINKESNot AvailableStart: 04-04-2024 End: 91-90-3415Wqwtgoex flow sheetKathleen E Rinkes DO Work Phone: noms [facility] OBComment on above:16 weeks gestation of pregnancyStart: 04-04-2024 End: 23-78-9652guuhlvandlBCAYSHJC E RINKESNot AvailableStart: 04-04-2024 End: 90-36-3077Vbxpzw flowsheetKathleen E Rinkes DO Work Phone: noms [facility] OBStart: 04-04-2024 End: 68-32-1871Qmiigs flowsheetKathleen E Rinkes DO Work Phone: noms [facility] OBStart: 03-07-2024 End: 91-72-8348yayfjsfnltPCHLQUIL E RINKESNot AvailableStart: 03-07-2024 End: 76-01-1024Vilbnhsg flow sheetKathleen E Rinkes DO Work Phone: noms [facility] OBComment on above:GA: 64e7mPgxle: 03-01-2024 End: 44-96-7022fvvqbmjnalROPYFjbnxzbg:[facility]art: 03-01-2024 End: 77-15-8267Exdxjp outpatient visit 25 minutesMarina Arthur MD Work Phone: Reproductive Endocrinology InfertilityComment on above:PCOS (polycystic ovarian syndrome) (Primary Dx)Start: 20-54-0191Jhoymgmkqw RecurringG. Alok Mcmillan DO Work Phone: [facility] Work Phone: Start: 02-23-2024 End: 73-63-0965swwblmvzrrO. Aolk Mcmillan DO Work Phone: [facility] Work Phone: Start: 02-23-2024 End: 17-35-0906Rzztuhs encounter procedureG. Alok Mcmillan DO Work Phone: [facility] Physician [facility] Ambulatory Work Phone: Start: 02-21-2024 End: 13-90-1270grxbqielnjOYPXZKLQ RINKESNot AvailableStart: 02-01-2024 End: 49-54-4737Sqvzrll evaluation of patient and reportUs [facility] Work Phone: Reproductive Endocrinology InfertilityComment on above:Early stage of pregnancyStart: 02-01-2024 End: 52-95-3289ppppdznuhnSQMFUQP G MICKEYFacility:[facility] Start: 01-21-2024 End: 81-33-0448jnnldiphbxYzmqiqlConsuelo Campbell APRN.PRACTICAL NURSING TEACHER Work Phone: Reproductive Endocrinology InfertilityComment on above:Early stage of (Primary Dx)Start: 01-21-2024 End: 03-05-9261Txeiayphysmj consultation with Ian Campbell APRN.CNP Work Phone: Reproductive Endocrinology InfertilityStart: 01-20-2024 End: 67-43-0570Eyiwfkvy flow sheetNoms Sws Ob NurseNOMS SWS OBComment on above: GA: 9w0eSumog: 01-20-2024 End: 83-22-5929ecbuubzzgwNFULBQGJ RINKESNot AvailableStart: 01-18-2024 End: 26-13-2917vilelngzbwCNWRHCU MICKEYFacility:[facility]ontart: 01-17-2024 End: 46-81-9602hridakwlffJcuochzConsuelo Campbell APRN.PRACTICAL NURSING TEACHER Work Phone: Reproductive Endocrinology InfertilityComment on above:PregnancyStart: 01-03-2024 End: 94-51-3794W-mail encounter from caregiverSara Campbell RAUL Work Phone: Reproductive Endocrinology InfertilityStart: 01-03-2024 End: 63-50-6575kjffxuuwdjNnhyjgw G Mickey RAUL Work Phone: Reproductive Endocrinology InfertilityComment on above:Female infertility (Primary Dx)IUI Checklist/Next stepsStart: 01-03-2024 End: 09-24-1123Bhjnpegcwpoc consultation with Ian Campbell RAUL Work Phone: Reproductive Endocrinology InfertilityStart: 12-21-2023 End: 75-01-8801wuhivhgwzgHPWBVRR BOSFacility:[facility]ontart: 14-65-5193Zxoogucdk for preprocedural laboratory examinationSARA Rebecca CAMP[facility]LL [facility] CenterStart: 12-21-2023 End: 42-75-4048Idkkxuo encounter procedureJessica Ortega MD Work Phone: Reproductive Endocrinology InfertilityComment on above:Fertility testing (Primary Dx); Pre-procedural laboratory examinationStart: 12-21-2023 End: 33-26-1442Orxxegz encounter statusJutristan Ortega MD Work Phone: [facility] Hospitaltart: 12-13-2023 End: 63-11-0671onojpkazjzBSBGHLB BOSKnox Community Hospitalcility:[facility]ontart: 12-13-2023 End: 66-11-8051Rnudil outpatient new 45 minutesMarina Arthur MD Work Phone: Reproductive Endocrinology InfertilityComment on above:Female infertility (Primary Dx); Fertility testing; Procreative management counseling; Special screening examination for infectious diseases; Vitamin D deficiency; Encounter of female for testing for genetic disease carrier status for procreative management; Irregular mensesStart: 12-13-2023 End: 36-25-5273tfkmgyczrzJRVUOdmtxhhq:[facility]ontart: 11-01-2023 End: 98-09-3248ivlobirngnQEArgelia Mcmillan Work Phone: [facility] Work Phone: Start: 11-01-2023 End: 67-27-6858Ehrkcts encounter procedureDO Moe Mcmillan Work Phone: [facility]-Lab [facility] Work Phone: Start: 10-20-2023 End: 48-27-0246Unsvuv outpatient visit 15 minutesGeorge Stephanie Mcmillan DO Work Phone: [facility] FM 230Comment on above:Depression, unspecified depression type (CMS/HCC) (Primary Dx); Mixed anxiety and depressive disorder; Panic disorder (CMS/HCC); PMDD (premenstrual dysphoric disorder) (CMS/HCC)Start: 10-20-2023 End: 68-33-1056Ankrga flowsheetGerhondage R Lupisftan DO Work Phone: [facility] FM 230Start: 10-20-2023 End: 28-86-0636Ctastc flowsheetGerhondage R Kaftan DO Work Phone: [facility] FM 230Start: 09-27-2023 End: 42-56-3832tkjniuzkzyJUKieran Mcmillan Work Phone: [facility] Work Phone: Start: 09-27-2023 End: 83-51-7381Zhqazml encounter procedureDO Moe Mcmillan Work Phone: [facility]-Lab [address] Work Phone: Start: 09-16-2023 End: 71-53-0840Buqhfqnfd to same day surgery Shae Mcmillan Work Phone: [facility]-XRay [facility] Work Phone: Start: 09-16-2023 End: 42-34-8579zwllrhxqtrYAKieran Mcmillan Work Phone: [facility] Work Phone: Start: 09-10-2023 End: 42-92-8734Qycaqmm encounter procedureRuthenid Aguilera [facility] [place] Start: 09-04-2023 End: 40-60-9809fnruuffglnEXKieran Mcmillan Work Phone: [facility] Work Phone: Start: 09-04-2023 End: 54-31-0898Ymqjrhf encounter Carola Mcmillan Work Phone: [facility]-Lab [facility] Work Phone: Start: 08-07-2023 End: 73-99-2926ltyahmxfulUIKieran Mcmillan Work Phone: [facility] Work Phone: Start: 08-07-2023 End: 67-28-2958Rljtvpm encounter Carola Mcmillan Work Phone: [facility]-Lab [facility] Work Phone: Start: 08-04-2023 End: 91-29-6908pjcbginkufZNKieran Mcmillan Work Phone: [facility] Work Phone: Start: 08-04-2023 End: 66-40-9043Sznwxsx encounter Carola Mcmillan Work Phone: [facility] Ambulatory Work Phone: Start: 86-22-8644Jwitmeoqcj Pauline Mcmillan Work Phone: [facility] Work Phone: Start: 07-14-2023 End: 64-00-5614ytwxaojdstHE RebeccaAdriana Alok Deyanira Work Phone: [facility] Work Phone: Start: 07-14-2023 End: 86-31-2389Rwtrbyi encounter procedure RebeccaAdriana Alok Deyanira Work Phone: [facility] Ambulatory Work Phone: Start: 85-20-1011Itublzifqx Recurring Moe Dickinson Deyanira Work Phone: [facility] Acute Work Phone: Start: 02-11-2023 End: 03-41-4528Aba Drop offMirna Aguilera [facility] Start: 02-11-2023 End: 91-86-5918Ybekzol encounter procedureMirna Aguilera [facility] Lrary Start: 02-09-2023 End: 76-89-1123Mjlqnmjbc Result EncounterGeorge Stephanie Lupiskenzie DO Work Phone: [facility] External Department UnsolicitedStart: 02-09-2023 End: 81-29-2857Hhudaiyrv Result EncounterGeorge Stephanie Lupiskenzie DO Work Phone: [facility] External Department UnsolicitedStart: 01-28-2023 End: 94-09-2030Ddoaivlar department patient visitDO Moe Dickinson Deyanira Work Phone: [facility] Work Phone: Start: 01-15-2022 End: 63-95-9570elgfxkthucYM RebeccaAdriana Mcmillan Work Phone: [facility] Work Phone: Start: 01-15-2022 End: 87-28-2010Csbobam encounter procedureDO Moe Mcmillan Work Phone: [facility] COVID TestingStart: 01-05-2022 End: 13-74-9391jktdbmjtivSFLPHMUS EBERLYFacility:C5Eskju: 10-24-2021 End: 21-72-1337dyycfsgsqbSJVEVHYG EBERLYFacility:P7Ossto: 07-02-2021 End: 64-42-0870ddjwtcxxelHLOGMIML EBERLYFacility:C1Nyhgw: 12-18-2020 End: 57-82-6716daqbeddgwxQsereeo Ditty Other [place] [employer] Other Start: 31-87-4978Earcpqp encounter procedureCamnegin LorettaherberyFPG Gastroenterology Procedures DateProcedureProcedure DetailPerforming ClinicianStart: 47-39-0863Xaoor culture PHYSICIAN NO FAMILYStart: 32-72-5781Qslspsre blood count with white cell differential, automatedCorina Hernandez MD Work Phone: start: 28-83-5796Kaljpmfi blood count with white cell differential, automatedCorina Hernandez MD Work Phone: start: 36-70-1813Xjqjcogj blood count with white cell differential, automatedCorina Hernandez MD Work Phone: start: 17-94-2552ZWN W/RFX TO QUANT & TP ABS ([facility] [place] Corina Hernandez MD Work Phone: start: 27-06-2547Rlujmvo bacterial quanttative colony count urineCorina Hernandez MD Work Phone: start: 74-48-7076AZ URINE DRUG SCREEN (NO THC)Corina Hernandez MD Work Phone: start: 70-73-7444Alhbd dip stick/tablet rgnt auto w/o microscopyCorina Hernandez MD Work Phone: start: 09-53-4110Yczqa cultureGAdriana Mcmillan DO Work Phone: start: 19-36-2427Lcvvm dip stick/tablet rgnt non-auto w/o micrscpKathleen E Rinkes DO Work Phone: start: 95-44-8787Vdqoesqypbjci metabolic panelCorina Hernandez MD Work Phone: start: 00-26-4877Uokrkpf bacterial quanttative colony count urineCorina Hernandez MD Work Phone: start: 13-62-0309Ysedcak total xcpt refractometry urineCorina Hernandez MD Work Phone: start: 39-10-3315Mhikg dip stick/tablet rgnt auto w/o microscopyCorina Hernandez MD Work Phone: start: 81-42-0582Smeli cultureG. Alok Larsoncarin DO Work Phone: Start: 04-34-0123Ndnjd dip stick/tablet rgnt non-auto w/o micrscpKathleen E Rinkes DO Work Phone: start: 77-44-8521Nnbjl dip stick/tablet rgnt non-auto w/o micrscpKathleen E Rinkes DO Work Phone: start: 74-98-3646Appsplkdawyjz agalactiae cultureG. Alok Mcmillan DO Work Phone: Start: 78-51-4154Yiaaz dip stick/tablet rgnt non-auto w/o micrscpKathleen E Rinkes DO Work Phone: start: 97-76-1856Zypbl dip stick/tablet rgnt non-auto w/o micrscpKathleen E Rinkes DO Work Phone: start: 05-84-8507Zdxbl dip stick/tablet rgnt non-auto w/o micrscpKathleen E Rinkes DO Work Phone: start: 03-89-0142Ssmheepzngnxz pyogenes antigen assay G. Alok Mcmillan DO Work Phone: Start: 88-19-9939Ihulj dip stick/tablet rgnt non-auto w/o micrscpKathleen E Rinkes DO Work Phone: start: 19-50-1368Bfltysdd blood count with white cell differential, automatedCorina Hernandez MD Work Phone: start: 53-90-9199Ugcnoksj blood count with white cell differential, automatedCorina Hernandez MD Work Phone: start: 05-07-8637Kzafozfjzhsglyg of abdomenG. Alok Mcmillan DO Work Phone: Start: 57-31-2274Yeyyntn bacterial quanttative colony count urineCorina Hernandez MD Work Phone: start: 22-50-6756Bctqr dip stick/tablet rgnt auto w/o microscopyCorina Hernandez MD Work Phone: start: 15-73-5655Knedj cultureG. Alok Mcmillan DO Work Phone: Start: 62-95-8942Tbknf dip stick/tablet rgnt non-auto w/o micrscpKathleen E Rinkes DO Work Phone: start: 85-59-8887Txtui dip stick/tablet rgnt non-auto w/o micrscpKathleen E Rinkes DO Work Phone: start: 96-81-8165Qfklh dip stick/tablet rgnt non-auto w/o micrscpKathleen E Rinkes DO Work Phone: start: 88-34-2974Jlgug dip stick/tablet rgnt non-auto w/o micrscpKathleen E Rinkes DO Work Phone: start: 19-27-7949Iclnf test visual color cmprsn methsLiliana G Adrian MIXER MACHINE FEEDER.PRACTICAL NURSING TEACHER Work Phone: Start: 88-11-5413Sppahr infus sonohysterography w/color dopplerMarina Arthur MD Work Phone: Start: 47-47-5917Ltdnu chlamydia trachomatis amplified probe Porsha Arthur MD Work Phone: Start: 11-35-2746Dhcwxwiy screenSARA MICKEYComment on above:Order Comment: Specimen Type: BLOOD SPECIMENOrdering Facility: [facility] Address:[address] [place] [address] Performed By: #### TSCR ####CC MAIN BLOOD BANKCLIA [id number] [place] [address] [place] STATES [place] AMERICAStart: 07-15-2023 Hepatitis B core antibody measurementG. Alok Mcmillan DO Work Phone: Comment on above:Performed at: [facility] [address] [id number] Director: Harsha Villanueva PhD, Phone: [phone]: 35-21-1597Byfka immunodeficiency virus antibody testG. Alok Mcmillan DO Work Phone: Comment on above:HIV NegativeHIV-1/HIV-2 antibodies and HIV-1 p24 antigen were NOTdetected. There is no laboratory evidence of HIV infection.Performed at: [facility] [address] [id number] Director: Harsha Villanueva PhD, Phone: [phone]: 02-09-2023 US RENAL BIGeorge Stephanie Mcmillan DO Work Phone: Start: 33-37-4023CG of abdomen and pelvis without contrastDO Moe Mcmillan Work Phone: ColonoscopyKathy Lue Respiratory Panel (PCR)DO Moe Mcmillan Work Phone: Plan of Treatment DateCare ActivityDetailAuthorStart: 46-36-6424AGG Vaccine (1 - 1-dose 75+ series)RSV Vaccine (1 - 1-dose 75+ series)[facility]: 10-25-2025 End: 60-50-8275Ptdpgfw encounter gzoreevjw59/10/2026 1:45 PM EDT Office Visit [facility] [address] [place] [address] Mandy Patel, DO [address] [place] [address] [facility] Fong OBGYNStart: 10-19-2024 End: 39-16-1179jwrejvtjxl36/04/2025 10:15 AM EDT Visit [place]RIA Fong BRADEN [address] [place] [address] Mandy Patel, DO [address] [place] [address] [place] Fong OBGYNStart: 54-69-3993Reqqimaeg vaccinationJORDAN VALLEY [facility] HealthcareStart: 56-80-2765Wcozi cultureSamaritan Hospitaltart: 21-23-0000Huzizktk identified in Urine by CultureUrine [facility]: 46-45-2409XlnnqzdxtSamaritan Hospitaltart: 66-16-5137Iajwbffn admissionSamaritan Hospitaltart: 09-08-2024 [facility]: 20-32-5129Zayavigr of Products of Conception, External ApproachDelivery of Products of Conception, External ApproachSamaritan Hospitaltart: 96-74-4094Xijmwhza of Amniotic Fluid, Therapeutic from Products of Conception, Via Natural or Artificial Openi ngDrainage of Amniotic Fluid, Therapeutic from Products of Conception, Via Natural or Artificial OpeningSamaritan Hospitaltart: 09-07-2024 End: 42-81-6462Tkqhnzh encounter procedureNOMS SWS OBComment on above:38 weeks gestation of ([facility])Start: 09-01-2024 End: 10-03-0276RhhaakhehSamaritan Hospitaltart: 67-46-2195Irjrg culture [facility]: 91-19-8408DkovcbdjfSamaritan Hospitaltart: 45-54-6937Nytpoful admissionSamaritan Hospitaltart: 23-42-3655Rqbclrwz identified in Urine by CultureSamaritan Hospitaltart: 08-31-2024 End: 10-78-2985Bpwmieq encounter procedureNOMS SWS OBComment on above:Xcdxmgh70 weeks gestation of ([facility])Start: 08-29-2024 End: 05-45-9698Dccyksm encounter procedureNOMS SWS OBComment on above:37 weeks gestation of ([facility])Start: 95-95-1030Ythwg B Streptococcus Culture Group B Streptococcus CultureSamaritan Hospitaltart: 08-25-2024 End: 19-75-6308Iruxlfr encounter tistujriw26/11/2025 10:30 AM EDT Routine [facility] [address] [place] [address] Mandy Patel, DO [address] [place] [address] 36 weeks gestation of ([facility]); screening for streptococcusB ([facility]OMS SWS OBComment on above:36 weeks gestation of ([facility]); screening for streptococcus B ([facility])Start: 08-08-2024 End: 43-86-3528Dgvmxnv encounter pmypsyoqu15/24/2025 3:45 PM EDT Routine [facility] [address] [place] [phone] Mandy Patel, DO [address] [place] [address] [facility] SWS OBStart: 08-08-2024 End: 17-41-9954Bdwuvxvgmsht / ancillary services uopnootkcq46/24/2025 3:30 PM EDT Ancillary Procedure [facility] [address] [place] [address] SBGJ SWS OBStart: 07-25-2024 End: 47-85-0751Apbjtfy encounter fipiafsgv88/10/2025 1:45 PM EDT Routine [facility] [address] [place] [phone] Mandy Patel, DO [address] [place] [address] [facility]OM[facility] SWS OBStart: 07-11-2024 End: 13-12-6460Wzgamse encounter procedureNOMS [facility] OBComment on above:30 weeks gestation of pregnancyStart: 66-53-1663HtafskyiiSamaritan Hospitaltart: 91-71-7065Dsorppte admissionSamaritan Hospitaltart: 06-27-2024 End: 93-11-8801Olhnplz encounter /13/2025 2:15 PM EDT Routine [facility] OB [address] [place] [phone] Mandy Patel, DO [address] [place] [address] [facility]S [facility] OBStart: 06-26-2024 End: 78-38-6865PcapjyukeSamaritan Hospitaltart: 79-74-9386SiwzrccgnSamaritan Hospitaltart: 82-57-5668JfbximkoxSamaritan Hospitaltart: 06-16-2024 End: 26-35-7669QstfspdioSamaritan Hospitaltart: 33-84-4116BhcoevwfdSamaritan Hospitaltart: 05-30-2024 End: 56-36-0239Podgsrt encounter mahcxyjkx68/15/2025 2:15 PM EDT Routine [facility] [address] [place] [phone] Mandy Patel, DO [address] [place] [address] 24 weeks gestation of ; Screening for diabetes mellitus (DM)NOMS [facility] OBComment on above:24 weeks gestation of ; Screening for diabetes mellitus (DM)Start: 05-02-2024 End: 04-88-9991Ijcxsnx encounter wzovedzax16/18/2025 2:15 PM EDT Routine [facility] [address] [place] [phone] Mandy Patel, DO [address] [place] [address] [facility] SWS OBStart: 05-02-2024 End: 33-22-6038Kkiareqruiry / ancillary services cakxesvlse08/18/2025 1:15 PM EDT Ancillary Procedure [facility] [address] [place] [address] LPCS SWS OBStart: 04-04-2024 End: 73-13-5506Mitobfw encounter procedureNOMS SWS OBComment on above:16 weeks gestation of pregnancyStart: 03-07-2024 End: 78-73-8206gbvjaowzbs67/21/2025 1:15 PM EST Initial [facility] [address] [place] [phone] Jorge Mandy E, DO [address] [place] [address] NOMS [facility] OBStart: 03-01-2024 End: 53-25-1106Fixzvb-up unyibhnzx30/15/2025 8:00 AM EST [facility] Reproductive Endocrinology Infertility [address] [place] [address] [place] [address] [place] [address] follow upReproductive Endocrinology InfertilityComment on above:follow upStart: 02-21-2024 End: 82-77-5125Xfveznebhcmk / ancillary services jedhimlanm04/06/2025 2:45 PM EST Ancillary Procedure [facility] [address] [place] [address] QZGL SWS OBStart: 01-21-2024 End: 67-03-2365CHJAFFIFQ ULTRASOUND WHIOBSTETRIC ULTRASOUND WHI Anc Imaging Routine Early stage of Expected: 01/21/2024, Expires: 01/20/2025 [facility] Work Phone: Comment on above:Expected: 01/21/2024, Expires: 01/20/2025Start: 01-21-2024 End: 06-79-3231Gsjrcuy encounter guvhhwaeu44/06/2024 1:00 PM EST Office Visit [facility] [address] [place] [address] labNortUP Health System LaboratoryComment on above:labStart: 01-20-2024 End: 20-24-2431Dgfilrgw identified in Urine by CultureUrine culture Microbiology Routine Encounter for supervision of normal first in first trimester Expected: 01/20/2024 (Approximate), Expires: 01/19/2025[facility] HealthcareComment on above:Expected: 01/20/2024 (Approximate), Expires: 01/19/2025Start: 01-20-2024 End: 16-66-5597Fqsuv type and Indirect antibody screen panel - BloodType and screen Lab Routine Encounter for supervision of normal first in first trimester Expected: 01/20/2024 (Approximate), Expires: 01/19/2025[facility] Healthcare Comment on above:Expected: 01/20/2024 (Approximate), Expires: 01/19/2025Start: 01-20-2024 End: 05-19-0976BAX W Auto Differential panel - BloodCBC and differential Lab Routine Encounter for supervision of normal first in first trimester Expected: 01/20/2024 (Approximate), Expires: 01/19/2025[facility] HealthcareComment on above:Expected: 01/20/2024 (Approximate), Expires: 01/19/2025Start: 01-20-2024 End: 34-45-7984gGA, quantitative, pregnancyhCG, quantitative, Lab Routine examination or test, unconfirmed Expected: 01/20/2024 (Approximate), Expires: 01/19/2025[facility] HealthcareComment on above: Expected: 01/20/2024 (Approximate), Expires: 01/19/2025Start: 01-20-2024 End: 17-74-4598Ywiezjigx B virus surface Ag [Presence] in Serum or Plasma by ImmunoassayHepatitis B surface antigen Lab Routine Encounter for supervision of normal first in first trimester Expected: 01/20/2024 (Approximate), Expires: 01/19/2025[facility] HealthcareComment on above:Expected: 01/20/2024 (Approximate), Expires: 01/19/2025Start: 01-20-2024 End: 54-67-5727Zwzhrbjpj C virus Ab [Presence] in Serum or Plasma by Immunoassay Hepatitis C antibody Lab Routine Encounter for supervision of normal first in first trimester Expected: 01/20/2024 (Approximate), Expires: 01/19/2025[facility] HealthcareComment on above:Expected: 01/20/2024 (Approximate), Expires: 01/19/2025Start: 01-20-2024 End: 51-96-6534FVY-1/HIV-2 antigen/antibody combination immunoassayHIV-1 and HIV-2 antibodies Lab Routine Encounter for supervision of normal first in firsttrimester Expected: 01/20/2024 (Approximate), Expires: 01/19/2025[facility] HealthcareComment on above:Expected: 01/20/2024 (Approximate), Expires: 01/19/2025Start: 01-20-2024 End: 75-09-6498Tvmvll Ab [Presence] in Serum by RPRRPR Lab Routine Encounter for supervision of normal first in first trimester Expected: 01/20/2024 (Approximate), Expires: 01/19/2025[facility] HealthcareComment on above:Expected: 01/20/2024 (Approximate), Expires: 01/19/2025Start: 01-20-2024 End: 56-49-3203Kkadtlf antibody, IgGRubella antibody, IgG Lab Routine Encounter for supervision of normal first in first trimester Expected: 01/20/2024 (Approximate), Expires: 01/19/2025[facility] HealthcareComment on above: Expected: 01/20/2024 (Approximate), Expires: 01/19/2025Start: 01-20-2024 End: 25-12-6669IIKEIHY TEST MISCELLANEOUS LABCORPSENDOUT TEST MISCELLANEOUS [facility] Lab Routine Encounter for supervision of normal first in first trimester Encounter for drug screening Expected: 01/20/2024 (Approximate), Expires: 01/19/2025[facility] HealthcareComment on above:Expected: 01/20/2024 (Approximate), Expires: 01/19/2025Start: 01-20-2024 End: 28-51-6117Ullmjkisva complete panel - UrineUrinalysis with microscopic Lab Routine Encounter for supervision of normal first in first trimester Expected: 01/20/2024 (Approximate), Expires: 01/19/2025[facility] Work Phone: comment on above:Expected: 01/20/2024 (Approximate), Expires: 01/19/2025Start: 01-03-2024 End: 59-98-3014adxuanqlvf34/18/2024 8:00 AM EST [facility] Reproductive Endocrinology Infertility [address] [place] [phone] Sara Campbell APRN.PRACTICAL NURSING TEACHER [address] [address] iui teachReproductive Endocrinology Infertility Comment on above:iui teachStart: 12-23-2023 End: 96-42-1594Znrmznt encounter /07/2024 6:00 PM EST Office Visit Reproductive Endocrinology Infertility [address] [address] [phone] iui-benefit checkReproductive Endocrinology InfertilityComment on above:iui-benefit checkStart: 12-21-2023 End: 69-38-8408Ezrforn encounter ruelgtnvm10/05/2024 10:45 AM EST Office Visit Reproductive Endocrinology Infertility [address] [place] [address] Sara Campbell APRN.PRACTICAL NURSING TEACHER [address] [address] SISReproductive Endocrinology InfertilityComment on above:SISStart: 12-13-2023 End: 187516-oiltxzccjifofn D3 [Mass/volume] in Serum or PlasmaVITAMIN D 25 HYDROXY Lab Routine Vitamin D deficiency Expected: 12/13/2023, Expires: 03/13/2024[facility] ClinicComment on above:Expected: 12/13/2023, Expires: 03/13/2024Start: 12-13-2023 End: 25-90-5294PQZYAXG SCREEN, [facility] Work Phone: Comment on above:Expected: 12/13/2023, Expires: 03/13/2024Start: 12-13-2023 End: 22-82-2609VUJZGUY IGG ANTIBODYLancaster Municipal HospitalComment on above:Expected: 12/13/2023, Expires: 03/13/2024Start: 12-13-2023 End: 09-69-5926Ejhbkoauyvn [Units/volume] in Serum or PlasmaTHYROID STIMULATING HORMONE Lab Routine Irregular menses Expected: 12/13/2023, Expires: 03/13/2024 [facility] HospitalComment on above:Expected: 12/13/2023, Expires: 03/13/2024Start: 12-13-2023 End: 77-99-0796IQ Uterus and Fallopian tubes W saline [facility] Work Phone: comment on above:Expected: 12/13/2023, Expires: 12/12/2024Start: 12-13-2023 End: 49-84-4782WHKGQDJVC ZOSTER IGGLancaster Municipal HospitalComment on above:Expected: 12/13/2023, Expires: 03/13/2024Start: 12-13-2023 End: 51-23-9198ZYPBAA ANTI MULLERIAN HORMONEWHIIVF ANTI MULLERIAN HORMONE Lab Routine Fertility testing Expected: 12/13/2023, Expires: 03/13/2024[facility] ClinicComment on above:Expected: 12/13/2023, Expires: 03/13/2024Start: 10-20-2023 End: 96-28-1489Gxwceux encounter /04/2024 4:00 PM EDT Office Visit [facility] [address] [place] [phone] Anette Mcmillan, [address] [place] [address] ArrivedMETHODIST HOSP[facility] 230Comment on above:ArrivedStart: 25-50-7118Ugmgb-19 Vaccine ( season)Covid-19 Vaccine ()[facility]: 32-81-5915Ucxzduqav vaccinationInfluenza Vaccine (#1)[facility]: 34-83-9886Xyxqmugat complement CH50 [facility]ertart: 56-91-1522Nvdorcr referralEast [facility] Regional Hospital Work Phone: Start: 45-25-1259Ejocj microalbumin profile DTaP,Tdap,Td Vaccine (7 - Td or Tdap)[facility]: 40-57-3170Pmowlnvgo for malignant neoplasm of cervixCervical Cancer ScreeningMercy Health Tiffin Hospitaltart: 07-36-1646Xzmjdqw ScreeningAnxiety ScreeningMercy Health Tiffin Hospitaltart: 05-19-2017 Depression ScreeningDepression ScreeningMercy Health Tiffin Hospitaltart: 2015 Meningococcal B Vaccine: Consider Based On Risk (1 of 2 - Patient Seeks Protection)Meningococcal B Vaccine: Consider Based On Risk (1 of 2 - Patient Seeks Protection)[facility]: 94-41-5054SGE Vaccine (1 - 3-dose series)HPV Vaccine (1 - 3-dose series)[facility]: 74-66-7954Foxu To Adult Transition Annual AssessmentPeds To Adult Transition Annual Assessment [facility]: 29-46-6998Vuhz To Adult Transition Initial DiscussionPeds To Adult Transition Initial DiscussionSaint Xavier ClinicAlbumin/Globulin ratio [facility] HospitalAngiotensin converting enzyme [Enzymatic activity/volume] in Serum or PlasmaMercy Health – The Jewish HospitalAnion gap measurementMercy Health – The Jewish HospitalBacteria identified in Urine by CultureUrine culture Microbiology STAT 07/01/2024 10:15 PM [facility] Work Phone: bacteria identified in Urine by CultureUrine culture Microbiology STAT 09/08/2024 9:40 PM [facility] [employer] Work Phone: End: 30-21-0265Ivawkyrgnjqfcwbaaw.beta subunit [Units/volume] in Serum or Plasma HCG QUANTITATIVE Lab STAT Positive test 2 Occurrences starting 01/18/[address] [facility] Work Phone: Comment on above:2 Occurrences starting 01/18/2024 until 01/17/2025horiogonadotropin.beta subunit [Units/volume] in Serum or PlasmaHCG QUANTITATIVE Lab STAT Positive test 01/18/2024 12:56 PM EST [facility] HospitalComplement C3 [Mass/volume] in Serum or PlasmaMercy Health – The Jewish HospitalComplement C4 [Mass/volume] in Serum or PlasmaMercy Health – The Jewish HospitalComprehensive metabolic 1999 panel - Serum or PlasmaMercy Health – The Jewish HospitalComprehensive metabolic 1999 panel - Serum or Plasma [facility] HospitalComprehensive metabolic 1999 panel - Serum or PlasmaComprehensive metabolic panel Lab STAT 07/01/2024 11:11 PM [facility] [employer] Work Phone: comprehensive metabolic 1999 panel - Serum or Plasma [facility] HospitalGlobulin [Mass/volume] in SerumMercy Health – The Jewish HospitalHemoglobin [Mass/volume] in BloodHemoglobin and hematocrit, blood Lab Routine 24 weeks gestation of Ordered: 05/30/2024[facility] [employer] Work Phone: comment on above:Ordered: 05/30/2024Hepatitis B core antibody measurementMercy Health – The Jewish HospitalHepatitis B virus surface Ab [Presence] in SerumMercy Health – The Jewish HospitalIGP,CtNgTv,rfx Aptima HPV ASCU ReflexIGP,CtNgTv,rfx Aptima HPV ASCU Reflex Pathology and Cytology Routine Screening for malignant neoplasm of cervix Screen for sexually transmitted diseases Ordered: 03/07/2024[facility] [employer] Work Phone: comment on above:Ordered: 03/07/20244145PggenrjA31 PLUS Core+RIOIpdsxaxP35 PLUS Core+SCA Lab Routine Genetic screening Ordered: 03/07/2024[facility] HealthComment on above:Ordered: 03/07/2024Measurement of glucose 1 hour after glucose challenge for glucose tolerance testGlucose tolerance, 1 hour Lab Routine Screening for diabetes mellitus (DM) Ordered: 05/30/2024[facility] HealthComment on above:Ordered: 05/30/2024Patient Education [facility] Work Phone: Patient referralOhiohealth Grady Memorial [facility] Work Phone: Progesterone [Mass/volume] in Serum or PlasmaMercy Health – The Jewish HospitalProgesterone [Mass/volume] in Serum or PlasmaMercy Health – The Jewish HospitalProgesterone [Mass/volume] in Serum or [facility] HospitalProtein/Creatinine [Ratio] in UrineMercy Health – The Jewish HospitalRheumatoid factor [Units/volume] in Serum or [facility] Hospitaltreptococcus agalactiae [Presence] in Unspecified specimen by Organism specific cultureMercy Health – [facility] Hospital Streptococcus pyogenes Ag [Presence] in Throat by Rapid immunoassayStrep B screen Microbiology Routine screening for streptococcus B ([facility]) Ordered: 08/25/2024[facility] Work Phone: comment on above:Ordered: 08/25/2024[facility] Immunizations Immunization DateImmunizationNotesCare KwlenvcrTvywmwqf85-81-1222lofftoc toxoid, reduced diphtheria toxoid, and acellular pertussis vaccine, adsorbedG. Alok Mcmillan DO Work Phone: [facility]01-26-2021COVID-19 mRNA-1273 (Moderna)DO Moe Mcmillan Work Phone: [facility]01-25-2021Moderna SARS-CoV-2 VaccinationGemason Mcmillan DO Work Phone: noCass Medical CenterWcytmsgkls31-66-9993VNEBK-17 mRNA-1273 (Moderna) DO Moe Mcmillan Work Phone: [phone]12-28-2020Moderna SARS-CoV-2 VaccinationGeorge Deyanira DO Work Phone: [facility] HealthCamtrikfmt28-80-4097vyzocihau virus vaccine, unspecified formulationGeorge Marshaan DO Work Phone: [facility] HealthZdpqttrrpw24-30-6396eeuyzgwxjvcje ACWY vaccine, unspecified formulationKathy Lue [facility]07-21-2016meningococcal polysaccharide (groups A, C, Y and W-135) diphtheria toxoid conjugate vaccine (MCV4P)Anette Mcmillan DO Work Phone: [facility] HealthCmnbmqbptw38-68-7854nvrrchpbr A vaccine, pediatric/adolescent dosage, 2 dose scheduleGeorge Marshaan DO Work Phone: [facility] HealthNhmafobtbe09-14-8660zrtebeimc A vaccine, unspecified formulationKathy Lue [facility]08-03-2012hepatitis A vaccine, pediatric/adolescent dosage, 2 dose scheduleGeorge Marshaan DO Work Phone: [facility] HealthEiabknguqn74-28-1775fxcwvetda A vaccine, unspecified formulationKathy Lue [facility]08-03-2012meningococcal ACWY vaccine, unspecified formulationKathy Lue [facility]08-03-2012meningococcal polysaccharide (groups A, C, Y and W-135) diphtheria toxoid conjugate vaccine (MCV4P)Anette Mcmillan DO Work Phone: [facility] HealthTbdrpprygc51-81-6595paxnlkn toxoid, reduced diphtheria toxoid, and acellular pertussis vaccine, adsorbedKathy Lue [facility] [place] 146112-21-2009influenza virus vaccine, H1N1, liveKathy Lue [facility] Hospitaly12-21-2009influenza virus vaccine, unspecified formulationGeorge Kaftan DO Work Phone: NOCass Medical CenterYurnpncoib99-24-5665ikstzltsg, unspecified formulationKathy Lue [facility] [place] 146112-21-2009novel Kzajicgxn-B5C1-13, live virus for nasal administration Anette Kaftan DO Work Phone: NOCass Medical CenterSobpphiqyn97-45-1884zoqyytmbr virus vaccine, H1N1, liveKathy Lue [facility] [place] 146111-23-2009influenza virus vaccine, unspecified formulationGeorge Kaftan DO Work Phone: [facility] CenterUzygaanxho80-04-9202jfojlnmcu, unspecified formulationKathy Lue [facility] [place] 146111-23-2009novel Dopnwpjlb-D6S9-62, live virus for nasal administration Anette Lupisftan DO Work Phone: [facility] HealthNyakjwyagk10-77-3962qjpxcatpzr, tetanus toxoids and acellular pertussis vaccineKathy Lue [facility]07-07-2005diphtheria, tetanus toxoids and acellular pertussis vaccine, 5 pertussis antigensGeorge Kaftan DO Work Phone: [facility] HealthVgtxmzdhda31-33-8137vqiqlhv, mumps and rubella virus vaccineKathy Lue [facility]07-07-2005poliovirus vaccine, inactivatedGeorge Kaftan DO Work Phone: [facility] CenterHriesmllvk89-80-9194fltcooujdg vaccine, unspecified formulationKathy Lue [facility]05-03-2001diphtheria, tetanus toxoids and acellular pertussis vaccine Anette Deyanira DO Work Phone: [facility] CenterCwfdttvblx52-19-8808qimhlnlhya, tetanus toxoids and acellular pertussis vaccine, 5 pertussis antigensGeorkenton Mcmillan DO Work Phone: [facility] CenterXhcsstxgbn88-44-2892gjtdddorlb, tetanus toxoids and acellular pertussis vaccine, unspecified formulationGeorge Deyanira DO Work Phone: [facility] CenterOxubknlflb01-94-3521GDmE, unspecified formulation Mirna Lue [facility]05-03-2001varicella virus vaccineKathy Lue [facility]04-05-2001haemophilus influenzae type b conjugate and Hepatitis B vaccineGeorge Deyanira DO Work Phone: [facility] CenterDhilunhjlg35-14-2257arqrsegslkl influenzae type b vaccine, PRP-OMP conjugateGeorge Deyanira DO Work Phone: [facility] CenterLhvuzsmnuc98-28-4728thqprwa, mumps and rubella virus vaccineKathy Lue [facility]04-05-2001poliovirus vaccine, inactivatedGeorkenton Mcmillan DO Work Phone: [facility] CenterBajtpbpudk39-40-5718ezvjplufbv vaccine, unspecified formulationKathy Lue [facility]y11-02-2000diphtheria, tetanus toxoids and acellular pertussis vaccine Anette Deyanira DO Work Phone: [facility] CenterAluhvskyhf74-34-6641xymwoyiyuh, tetanus toxoids and acellular pertussis vaccine, 5 pertussis antigensGemason Mcmillan DO Work Phone: [facility] CenterDyepydsvou89-56-6140laffrnedpm, tetanus toxoids and acellular pertussis vaccine, unspecified formulationGeorge Deyanira DO Work Phone: [facility] CenterJxuisrrlfz46-49-9153UYeJ, unspecified formulation Mirna Lue [facility]11-02-2000haemophilus influenzae type b vaccine, PRP-OMP conjugateKathy Lue [facility]08-17-2000diphtheria, tetanus toxoids and acellular pertussis vaccine Anette Mcmillan DO Work Phone: [facility] CenterXuyrbfskmh59-84-3331oexykjmcnv, tetanus toxoids and acellular pertussis vaccine, 5 pertussis antigensGeorkenton Mcmillan DO Work Phone: [facility] CenterSibseniygs18-27-5137egugyofdgq, tetanus toxoids and acellular pertussis vaccine, unspecified formulationGeorkenton Mcmillan DO Work Phone: [facility] CenterSijijlpwms47-29-2906ZKmX, unspecified formulation Mirna Lue [facility]08-17-2000haemophilus influenzae type b conjugate and Hepatitis B vaccineGeorkenton Mcmillan DO Work Phone: [facility] CenterYnzwxryqnh01-44-2029agohnrjrxgz influenzae type b vaccine, PRP-OMP conjugateGeorkenton Mcmillan DO Work Phone: [facility] CenterFmikaehemu04-53-5720ysyjiqkhdq vaccine, inactivatedGeorge Deyanira DO Work Phone: [facility] CenterIxoctvizpi29-32-0620hjwfvtdssn vaccine, unspecified formulationKathy Lue [facility]06-15-2000diphtheria, tetanus toxoids and acellular pertussis vaccine Anette Mcmillan DO Work Phone: [facility] CenterRokbviitnn29-35-6136hdnvrzypeb, tetanus toxoids and acellular pertussis vaccine, 5 pertussis antigensGemason Mcmillan DO Work Phone: [facility] CenterWixgqgnrnf93-50-2647uyjoyuhndk, tetanus toxoids and acellular pertussis vaccine, unspecified formulationGeorge Marshaan DO Work Phone: [facility] CenterToguamterx08-12-2591ZZnI, unspecified formulation Mirna Lue [facility]06-15-2000haemophilus influenzae type b conjugate and Hepatitis B vaccineGeorge Deyanira DO Work Phone: [facility] CenterHbwqgbqkab85-64-4403xnjrhzbyrmc influenzae type b vaccine, PRP-OMP conjugateGeorge Likvakenzie DO Work Phone: [facility] Mshpxucnxy96-63-3488ndikxtnyer vaccine, inactivatedGeorge Deyanira DO Work Phone: [facility] Pnleoglehs93-27-4513btiyqytbfg vaccine, unspecified formulationKathy Lue [facility] Payers DatePayer CategoryPayerPolicy [id number] Health Insurance [id number] [facility] 1.2.840.114944.1.13.693.2.7.9.662536.351484.26828-40-2966Dpoeetu 1.2.840.113987.1.13.159.2.7.3.82714[id number] 2..840.1.941194.3.579.2.96360-68-4400Opbhtdf1312403 2.16840.1.466112.3.579.2.11119-58-4533Uzmcwgl54084801 2.16.840.1.343625.3.579.2.10329-31-2985Hrsefjr40295337 2.16.840.1.554542.3.579.2.52216-96-1620Kbebeoj90589745 2.16.840.1.118281.3.579.2.56594-70-4812Gvydxgh62795593 2.16.840.1.875704.3.579.2.96677-98-2769Dsbsqdm21415627 2.16.840.1.562522.3.579.2.949499-90-0438Qylfkgl28731465 2.16840.1.307893.3.579.2.703462-94-2256Hmjpuxo47687945 2.16840.1.353054.3.579.2.140494-17-6878Txapjve30397419 2.16840.1.760974.3.579.2.886732-19-7846Pgimklh65854828 2.16840.1.145892.3.579.2.947298-03-3419Nfhaeqw62797686 2.16.840.1.023138.3.579.2.258856-59-1998Bbkbxgb48447082 2.16.840.1.202278.3.579.2.994896-90-1296Pnehqkq31238809 2.16.840.1.551952.3.579.2.351634-72-4397Ixeydjy86962749 2.16.840.1.236027.3.579.2.565429-88-3821Ofoircu44904563 2.16.840.1.535662.3.579.2.837405-57-5901Munluxw2853931 2.16.840.1.323885.3.579.2.424411-69-5748Zeumhbj6197175 2..1.588167.3.579.2.997099-39-0749Umanyvf6790694 2..1.187523.3.579.2.735695-96-5732Dmgvrte2674406 2..1.148684.3.579.2.295142-96-1934Udugbze5440915 2..1.201421.3.579.2.609692-17-5395Eqaijeq5286511 2..1.415681.3.579.2.089471-13-6948Gslvkqb4379914 2..1.156714.3.579.2.067665-92-8364Shzxhaz0357824 2..1.443380.3.579.2.982885-39-2591Ephucth1425319 2..1.486478.3.579.2.141824-37-5201Acxzwqc9340694 2..1.838408.3.579.2.822015-21-9568Igpz Cross Blue HhjsehFAJ375350458 2..4.373050.72594696-89-7892Muwa-ruy9a46044u-0g0o-059u-5icu-4u191ac3134l Ltybxcg7268965 2..1.871647.3.579.2.121Rgahlzi78814298 2..1.286470.3.579.2.825Pxivwod04044865 2.0.1.618754.3.579.2.531 Wvopsxl09059071 2..1.375596.3.579.2.031Yxanpmu52455971 2..1.243754.3.579.2.432Dbpddax41984105 2.16.840.1.717004.3.579.2.531 Sroeecd33225147 2.16.840.1.207772.3.579.2.989Bywumej29393307 2.16.840.1.003790.3.579.2.245Tjsqfxj33421922 2.840.1.967151.3.579.2.531 Ixtibos04996521 2.16.840.1.828141.3.579.2.182Hequzzf10617775 2.0.1.784671.3.579.2.531 Social History DateTypeDetailFacilityStart: 10-19-2023 End: 75-52-1215Bao [facility] 06-26-2020 End: 93-07-9719Eplojvi smoking status NHISNever smoked tobacco (finding) [facility] Hospitaltart: 76-60-5797Kbj [facility]: 67-64-2231Choefpu smoking statusNever [facility] [place]kyStart: 07-16-2022 End: 50-26-9254Oqsvqxs use and exposureSmokeless tobacco non-userNOMS Healthcare Start: 10-19-2023 End: 31-85-2277Wgdsxxt of Social functionNOMS HealthcareStart: 26-54-4997Loj assigned at birthNot on fileNOMS HealthcareStart: 11-18-2022 End: 04-71-2523Uhqlmjsqp beverage intakeEx-drinker (finding)[facility] Within the last year, have you been afraid of your partner or ex-partner?NoNOMS HealthcareAre you now , , , , never or living with a partner?MarriedNOMS HealthcareHow often to you have a drink containing alcohol?Monthly or lessNOMS HealthcareHow many standard drinks containing alcohol do you have on a typical day?1 or 2NOMS HealthcareHow often do you have 6 or more drinks on 1 occasion?NeverNOMS HealthcareHow hard is it for you to pay for the very basics like food, housing, medical care, and heating Not very hardNOMS HealthcareDo you feel stress - tense, restless, nervous, or anxious, or unable to sleep at night because yourmind is troubled all the time - these days [OSQ]Very muchNOMS Healthcare(I/We) worried whether (my/our) food would run out before (I/we) got money to buy more.Never trueN[facility] Start: 76-84-8158Bnrjkyp CommentCaffeine intake: 1 cup coffee/dailyNOMS HealthcareStart: 40-96-2142NzqyanbixJdpocbvpySamaritan Hospitaltart: 24-07-6322Dmxldyq CommentCaffeine intake: noneNOMS HealthcareStart: 02-23-2024 End: 65-92-7168QlhInefzf (finding)[facility] Hospitalexual OrientationExec[facility] NEGATED: Highlighted rowStart: NINFHistory of tobacco usePassive smokerNOMS Healthcare Goals DatePatient GoalDesired Activity/State Functional Status IwixHjtolwvlseCzbodnDhrymmii26-46-7870Ycwxutbirp statusPatient at Baseline [facility] Work Phone: [phone] 173-388509124022-64-9427Nbklw score [AUDIT-C]1 10/19/2023 7:29 PM EDT Mychart, GenericNOMS Gmnuyzcvic99-32-0673Bgp often do you have a drink containing alcohol?Monthly or less 10/19/2023 7:29 PM EDT Mychart, Generic Monthly or lessNOMS Wjfswtbidi31-95-1644Bys many standard drinks containing alcohol do you have on a typical day?1 or 2 10/19/2023 7:29 PM EDT Mychart, Generic 1 or 2NOMS Zbgtbfggqk66-75-9623Zya often do you have 6 or more drinks on 1 occasion?Never 10/19/2023 7:29 PM EDT Mychart, Generic NeverN[facility]S Healthcare 05-88-5141Dkbmalz Health Questionnaire 2 item (PHQ-2) [Reported][facility] Mental Status JbxcMeutvlzrhcBnpsgdGroyszku91-46-8607Mfjhhrgfm functionCognitive Status [facility] Work Phone: Clinical Notes 12-18-2020 to 10-19-2024 Note Date & EngyJfonGlskjodi59-30-4909 History of Present illness Narrative* Mandy Patel DO - 10/19/2024 10:15 AM EDT Images from the original note were not included. Mandy Patel D.O. Obstetrics and Gynecology Patient: Danelle Guido : 2000 (24 y.o.) Exam Date: 10/19/2024 Reason for Visit - Chief Complaint Patient presents with Care 09/09/24 . Denies vaginal bleeding/spotting. Denies bowel/bladder concerns. Pt is ,going well. Pt declines control at this time. Denies intercourse. Denies PP depression. Visit Vitals BP 126/78 Wt 184 lb Yes BMI 31.58 kg/m OB Status Recent Smoking Status Never BSA 1.94 m Allergies Allergen Reactions Zinc Hives Bacid [...] Review Audit Reviewed by Patti Romeo MA (Car Park Attendant) on 10/19/24 at 1014 Medication Order Taking? Sig Documenting Provider Last Dose Status cyanocobalamin (Vitamin B-12) 100 MCG tablet [id number] Take 100 mcg by mouth Daily Mandy Patel, DO Active Discontinued 10/19/24 1013 Discontinued 10/19/24 1013 Discontinued 10/19/24 1013 metFORMIN (Glucophage) 500 MG tablet [id number] Yes Take by mouth Mandy Patel, DO Active Discontinued 10/19/24 1013 sertraline (Zoloft) 50 MG tablet [id number] Take 1 tablet (50 mg) by mouth Daily Mandy Patel, DO Active Past Medical History: Diagnosis Date Anemia Anxiety Female infertility IBS (irritable bowel syndrome) Kidney stone Leucocytosis Ovarian cyst PMDD (premenstrual dysphoric disorder) Polycystic ovary syndrome Past Surgical History: Procedure Laterality Date COLONOSCOPY KIDNEY STONE SURGERY 09/2024 VAGINAL DELIVERY 09/09/2024 Family History Problem Relation [...] obvious hearing deficit Skin: Warm and dry Breast: no masses palpable bilaterally, normal nipples bilaterally - everted - axilla negative - noskin changes Heart: Regular rate and rhythm, S1 and S2 normal, no murmur Lungs: Clear to auscultation bilaterally, respirations unlabored Abdomen: Soft, non-tender, no masses, no organomegaly Extremities normal, atraumatic, no cyanosis or edema FEMALE GENITOURINARY: small amount of granulation tissue noted at introitus- tx with silver nitrate, normal vaginal mucosa, cervix absent of lesions, nontender, uterus AV, mobile, ovaries nonpalpableand non tender Diagnoses and all orders for this visit: care and examination ([facility]) Breast and pelvic exam performed. Patient may resume normal activities. Discussed contraceptive options at length with the patient- patient planning barrier contraception. Pt is stable . Findings of today's exam discussed with patient. Patient to contact the office if there are any changes in her gynecological conditions, she is to return for her annual exam or as needed. ICD-10-CM 1. care and examination ([facility]) Z39.2 documented in this encounterCarondelet HealthTtogqiwwje32-34-1768 Hospital Discharge instructions Follow Up Care 10/03/2024 12:58:43 With:Willy WARNER, LOCO Velasquez, URO Address: When: Unknown [facility] 08-07-2025 History of Present illness Narrative* Mandy Patel DO - 09/21/2024 4:00 PM [...] 3 oz M Vag-Spont EPI MANDY 1 SAB 2023 Obstetric Comments Pap smear 03/07/24 wnl [...] Review Audit Reviewed by Patti Romeo MA (Car Park Attendant) on 09/21/24 at 1600 Medication Order Taking? Sig Documenting Provider Last Dose Status Discontinued 09/21/24 1600 cyanocobalamin (Vitamin B-12) 100 MCG tablet [id number] Take 100 mcg by mouth Daily Mandy Patel DO Active ferrous sulfate 325 (65 Fe) MG tablet [id number] Take 325 mg by mouth in the morning. Take with meals. Active metFORMIN (Glucophage) 500 MG tablet [id number] TAKE ONE TABLET BY MOUTH THREE TIMES A DAY WITH A MEAL Mandy Patel DO Active Vit w/Sp-Hpabfngsx-FL (PNV PO) [id number] No Take by mouth Mandy Patel DO Taking Active sertraline (Zoloft) 25 MG tablet [id number] Take 1 tablet (25 mg) by mouth [...] and all orders for this visit: anxiety ([facility]) - sertraline (Zoloft) 50 [...] 4 weeks for visit. ICD-10-CM 1. anxiety ([facility]) O99.345 sertraline (Zoloft) 50 MG tablet F41.8 2. Acute vulvitis N76.2 nystatin-triamcinolone (Mycolog II) ointment documented in this encounterCarondelet HealthKfiuoagfvd11-90-0834 Progress note Author Mandy Patel [facility] HospitalNote Date/TimeJuly 2024 11:28[place] [id number] EXTERMINATOR Progress Note Signed Patient: Danelle Guido MR#: [id number] : 2000 Acct:[id number] Age/Sex: 24 / F Adm Date: 5 Loc: 3S Room: [address] [place] [address] Type: ADM IN Attending Dr: Corina Hernandez [...] <Electronically signed by Mandy Patel DO> 09/11/[address] [place] [address] Work Phone: 1(439) 315-304907-28-2025 [place] [address] EXTERMINATOR Progress Note Signed Patient: Danelle Guido MR#: [id number] : 2000 Acct:[id number] Age/Sex: 24 / F Adm Date: 5 Loc: Room: [address] [place] [address] Type: ADM IN Attending Dr: Corina Hernandez [...] Documented By: Mandy Patel DO 09/11/24 11 Signed By: 09/11/24 1128 [facility]07-25-2025 Evaluation note* Diagnosis Onset Date Resolution Status Admit Date 38 weeks gestation of resolvedJuly 2024 9:06pmStatus post vaginal deliveryinactiveJuly 2024 9:06pmAcquired iron deficiency anemia due to increased iron requirement acuteOctober 2024 10:48amLeukocytosisacuteOctober 2024 10:48amPositive VANDANA (antinuclear antibody)acuteOctober 2024 10:48amPregnancyacuteOctober 2024 10:48am [facility] Work Phone: 1(327) 520-824107-24-2025 History of Present illness Narrative* Mandy Patel DO - 09/07/2024 2:00 PM EDT Urine T/N. Denies concerns. Pt states was given an antibiotic at the hospital, Pt has not started it d/t not sure why she was prescribed it. Urine culture negative. Plan for IOL Wednesday night 10pm Cytotec documented in this encounterCarondelet HealthJfpmphmyja25-73-7278 History of Present illness Narrative* Mandy Patel [...] with any worsening symptoms. documented in this [facility]07-17-2025 History of Present illness Narrative* Mya Kothari RN - 08/31/2024 12:45 PM EDT Non-Stress Test heart variability: moderate Heart Rate decelerations: none acoustic stimulator: no Heart Rate accelerations: yes Baseline FHR: 125 per minute Non-stress Test: reactive Uterine contractions: none Diagnosis Plan 1. 37 weeks gestation of ([facility]) 2. Decreased movements in third trimester, single or unspecified fetus ([facility]) documented in this [facility]07-15-2025 History of Present illness Narrative* Mandy Patel DO - 08/29/2024 2:00 PM EDT Urine 2+/N. Pt notice her urine has been dark since Wednesday. Pt states drinking water. Pt also notice more cramping. Denies dysuria. Pt would like cervix checked. Discussed hydration/rest. BP WNL- asymptomatic. Will return after working on hydrating to check urine protein. documented in this [facility]07-11-2025 History of Present illness Narrative* Mandy Patel DO - 08/25/2024 10:30 AM EDT Gbbs ordered, delivery permit signed, Urine N/N. Pt does not want blood transfusions even in case of an emergency. For presybeterian reasons, patient will refuse all blood/blood products even if life saving. Did discuss at length and rare/possible circumstances where this may arise documented in this [facility]06-24-2025 History of Present illness Narrative* Mandy Patel DO - 08/08/2024 3:45 PM EDT Urine N/N. Pt thinks she might have lost mucus plug, not sure. PT notice legs/ankles swelling. EFW 5#9oz, 59%, ARIC WNL documented in this encounterCarondelet HealthOofadeyrmn27-82-8895 Evaluation note* Diagnosis Onset Date Resolution Status Admit Date Acquired iron deficiency anemia due to i ncreased iron requirement acuteJune 2024 1:49pmLeukocytosisacuteJune 2024 1:49pmPositive VANDANA (antinuclear antibody)acuteJune 2024 1:49pmPregnancyacuteJune 2024 1:49pm [facility] Work Phone: 1([phone]) 874-111806-19-2025 Evaluation note* Diagnosis Onset Date Resolution Status Admit Date Acquired iron deficiency anemia due to i ncreased iron requirement acuteJune 2024 1:49pmLeukocytosisacuteJune 2024 1:49pmPositive VANDANA (antinuclear antibody)acuteJune 2024 1:49pmPregnancyacuteJune 2024 1:49pm38 weeks gestation of pregnancyacuteJuly 2024 9:06pmStatus post vaginal deliveryacuteJuly 2024 9:06pm [facility] Work Phone: [phone]) 750-541606-19-2025 Evaluation note* Diagnosis Onset Date Resolution Status Admit Date Acquired iron deficiency anemia due to i ncreased iron requirement acuteJune 2024 1:49pmLeukocytosisacuteJune 2024 1:49pmPositive VANDANA (antinuclear antibody)acuteJune 2024 1:49pmPregnancyacuteJune 2024 1:49pm38 weeks gestation of pregnancyresolvedJuly 2024 9:06pmStatus post vaginal deliveryinactiveJuly 2024 9:06pm [facility] Work Phone: 1(159) 395-426706-10-2025 History of Present illness Narrative* Mandy Patel DO - 07/25/2024 1:45 PM EDT Urine N/N. Denies concerns. documented in this [facility]05-27-2025 History of Present illness Narrative* Mandy Patel DO - 07/11/2024 2:30 PM EDT Urine N/N. Pt c/o on and off Rt. Sided pain. documented in this [facility]05-13-2025 History of Present illness Narrative* Mandy Patel DO - 06/27/2024 2:15 PM EDT Kick count given to pt. Urine N/N. Pt c/o Belly pain on Rt. Side of belly. Pt notice increase of acid reflux. PT just had her 3rd iron infusion today. Passed 3hr GTT documented in this [facility]04-15-2025 History of Present illness Narrative* Mandy Patel DO - 05/30/2024 2:15 PM EDT Glucose, H&H ordered, Urine N/N. Pt seeing retirement officer. Recommended an iron infusion. Also concerned about swelling hands and ankles. documented in this [facility]04-10-2025 Evaluation note* Diagnosis Onset Date Resolution Status Admit Date Acquired iron deficiency anemia due to i ncreased iron requirement acuteApril 2024 2:24pmLeukocytosisacuteApril 2024 2:24pmPositive VANDANA (antinuclear antibody)acuteApril 2024 2:24pmPregnancyacuteApril 2024 2:24pm [facility] Work Phone: 1(858) 905-238502-18-2025 History of Present illness Narrative* Mandy Patel DO - 04/04/2024 2:15 PM EST Urine N/N. Pt feeling well, Denies concerns. documented in this encounterCarondelet HealthLuaisftxbh70-42-2691 History of Present illness Narrative* Mandy Patel DO - 03/07/2024 1:15 PM EST Urine N/N. Pt feeling well, tired. Pt is planning on going on a trip in 2 weeks. Pt states seeing oncologist/retirement officer. Pt states iron has been low. Pt was positive VANDANA Lupus. Pt would like to discuss genetic testing Pt states interested in having done. Did recommend starting baby ASA- will be flying to [place] soon documented in this [facility]01-16-2025 Instructions* Patient Instructions* Marina Arthur MD - 03/02/2024 10:50 PM EST Thank you for visiting the [facility]. Our team looks forward to providing you with excellent care to help you achieve your family goals. The best way to contact me is by Directa Plusriri. Important phone numbers: [facility] main line: [phone]. Wednesday-Wednesday 8 AM - 4:30 PM. This number is for questions or scheduling related to your fertility treatments. For patients wanting to schedule surgery or questions related to your surgery call [phone]. After hours emergency only Physician line: [phone] For patients needing to create a medical record/chart for partner: [phone] 2. Polycystic Ovary Syndrome Women with polycystic [...] is provided by your physician and the [facility] Journal of Medicine and the[facility] [email or web address]. This information has not been designed to replace a physician's medical assessment and medical judgment. Copyright 1994- 2012 [facility]. All rights reserved This information is provided by the [facility] and is not intended to replace the medical advice of your doctor or health care provider. Please consult your health care provider for advice about a specific medical condition. For additional health information, please contact the Center for Consumer Health Information at the [facility] or toll-free extension [phone]. If you prefer, you may visit [email or web address] or [email or web address]. This document was last reviewed on: 2009 index#2616 documented in this encounterLancaster [facility] Hospital01-15-2025 History of Present illness Narrative* Marina [...] yolk sac and pole is present. - [place] rump length measurement is consistent with the [...] PCOS. Sought initial evaluation for fertility with service order expediter in [place]. Had HSG done a few months ago, told normal. No recent ultrasound done. had semen analysis that was within normal limits. Biochemical x1 in 05/2023. Has done 5 cycles of clomid/+OPK/TIC. 50 x 4 cycles -> 100. Past Medical History: PAST MEDICAL HISTORY Diagnosis Date Anemia Female infertility Insulin resistance Past Surgical History: No past surgical history on file. OB History: LEGAL SUPPORT ANALYST History: Menstrual cycle pattern: Regular periods (25-34 [...] tablet by mouth two times a day. Pskogyvj-Ph-Pux-Fe-FA tab Take 1 tablet by mouth once [...] which included preparing to see the patient, ftmj-xn-xmxn patient care, completing clinical documentation, obtaining and/or [...] errors missed in proofreading. documented in this encounterL[facility] Hospital01-15-2025 NoteHNO ID: [id number] Author: MARINA ARTHUR MD Service: ? Author [...] visit. Either the patient or their legal national account representative has been informed of the risks [...] yolk sac and pole is present. - [place] rump length measurement is consistent with the [...] PCOS. Sought initial evaluation for fertility with service order expediter in [place]. Had HSG done a few months ago, told normal. No recent ultrasound done. had semen analysis that was within normal limits. Biochemical x1 in 05/2023. Has done 5 cycles of clomid/+OPK/TIC. 50 x 4 cycles -> 100. Past Medical History: PAST MEDICAL HISTORY Diagnosis Date Anemia Female infertility Insulin resistance Past Surgical History: No past surgical hist (more content not included)...[facility] [place] [address] Cancer Center Note Signed Patient: Danelle Guido MR#: [id number] : 2000 Acct:[id number] Age/Sex: 23 / F Type: REG AMB [...] panel were all negative. Rheumatoid factor and ADIA were normal. 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 Patient Instructions: cbc,cmp,iron,b12 3months follow up 3 [...] hepatitis panel were all negative. Rheumatoid factorand ADIA were normal. She denies any abdominal pain [...] other concerns voiced at time of intake. [facility] Medical History Medical History (Updated 02/23/24 @ 15:[address] MD) Positive VANDANA (antinuclear antibody) Iron deficiency Leukocytosis PMDD (premenstrual dysphoric disorder) Ovarian cyst IBS (irritable bowel syndrome) Mixed anxiety and depressive disorder Insomnia Hyperlipidemia Diarrhea Problem List clean-up per request of Phys. [facility] Surgical History Surgical History No pertinent past surgical history Problem List clean-up per request [facility] Phys. [facility] History Family History (Updated 06/26/20 @ 07:46 by Bethanie Baca RN) Grandparent Colon cancer Hypertension High cholesterol Father Hypertension High cholesterol Family/Other Hypertension High cholesterol Family/Other High cholesterol Grandparent High cholesterol Father Hypertension Social History Social History (Updated 07/14/23 @ 14:26 by Karyna Patino [facility]) Smoking status: Never smoker Within [...] 02/14/24 11:02/14/24 Hct 39.3 % (34.0-46.4) 02/14/24 11:22 02/14/24 MCV 87.8 fl (80-100) 02/14/24 11:02/14/24 RDW 12.6 % (11.9-15.3) 02/14/24 11:02/14/24 Plt Count 422 x10E3/uL (150-450) 02/14/24 11:02/14/24 Iron 76 ug/dL (50-212) 02/14/24 11:02/14/24 Iron Saturation 17.1 % (20-50) L 02/14/24 11:22 02/14/24 Ferritin 52.7 ng/mL (11.0-306.8) 02/14/24 11: 4 Dictated By: Pippa Lane MD DD/ [id number] Signed By: 02/23/24 1539 [facility]12-17-2024 NoteHNO ID: [id number] Author: YNES CHANG APRN.PRACTICAL NURSING TEACHER Service: ? Author Type: Nurse Practitioner Type: [...] Plan Move on to OB Ynes Chang APRN.PRACTICAL NURSING TEACHER February 01, 2024 4:55 [facility]12-17-2024 NoteHNO ID: [id number] Author: JESSICA ORTEGA MD Service: ? Author Type: Physician Type: Progress Notes Filed: 02/01/2024 10:38 Note Text: Patient is here for ultrasound. Please see image section in [facility] for results. Julianne River, [facility]12-17-2024 History of Present illness Narrative* Jessica Ortega MD - 02/01/2024 10:38 AM EST Patient is here for ultrasound. Please see image section in [facility] for results. Julianne River MD documented in this encounterL[facility]12-06-2024 NoteHNO ID: [id number] Author: SARA CAMPBELL APRN.CNP Service: ? Author [...] visit. Either the patient or their legal national account representative has been informed of the risks [...] 1. Early stage of Z34.90 OBSTETRIC ULTRASOUND [facility] Plan: further labwork needed: no scan scheduled: 01/31 medications to discontinue: reviewed Schedule with OB: already scheduled Sara Campbell APRN.CNP January 21, 2024 2:33 PM Please schedule the patient for the following- Location: [facility] Provider: nurse Visit type: scan Reason for visit/appointment notes: scan Date: 01/31 Time (requested): 1030 If slot is full, please schedule the closest open slot. Call to patient needed: no I spent a total of 30 minutes on the date of the service which included preparing to see the patient, khlv-np-jipc patient care, completing clinical documentation, obtaining and/or [...] be grammatical and typographical errors missed in proofreading.[facility]12-06-2024 History of Present illness Narrative* Sara Campbell APRN.[facility] - 01/21/2024 2:33 PM EST Images from [...] visit. Either the patient or their legal national account representative has been informed of the risks [...] 1. Early stage of Z34.90 OBSTETRIC ULTRASOUND [facility] Plan: further labwork needed: no scan scheduled: 01/31 medications to discontinue: reviewed Schedule with OB: already scheduled Sara Campbell APRN.CNP January 21, 2024 2:33 PM Please schedule the patient for the following- Location: [facility] Provider: nurse Visit type: scan Reason for visit/appointment notes: scan Date: 01/31 Time (requested): 1030 If slot is full, please schedule the closest open slot. Call to patient needed: no I spent a total of 30 minutes on the date of the service which included preparing to see the patient, bxlt-gs-vons patient care, completing clinical documentation, obtaining and/or [...] errors missed in proofreading. documented in this encounterLancaster [facility] Hospital12-05-2024 History of Present illness Narrative* Micki Walker RN - 01/20/2024 2:45 PM EST Name: Danelle Guido Date/Time of Service:01/20/2024 2:55 PM :2000 [...] Type Anes PTL Lv 2 Current 1 SAB 2023 Obstetric Comments Pap smear 10/15/21 wnl [...] WITH A MEAL 90 tablet 11 Vit w/Od-Ahikdpvik-ZQ (PNV PO) Take by mouth sertraline (Zoloft) [...] of , after her first appointment with KER and she knows her financial responsibility before having these drawn. Patient verbalizes understanding. Orders placed. Last PAP: 10/15/21 WNL ASSESSMENT / PLAN Labs Ordered. Handed patient printed copy of orders to take with her to [facility] to have drawn today. Appointments scheduled for OBUS 02/20 and with KER 03/07. 01/20/2024 2:55 PM documented in this encounterCarondelet [id number] Telephone encounter Note* Telephone Encounter - Katie [...] Holbrook RN January 18, 2024 9:14 AM [facility]12-03-2024 Miscellaneous Notes* Telephone Encounter - Katie [...] 18, 2024 9:14 AM documented in this encounterLancaster Municipal Hospital11-18-2024 Instructions* Patient Instructions* Sara Campbell APRN.ALANNA - 01/03/2024 6:45 PM EST Images from the original note were not included. Hi Danelle, Here is a summary of what we reviewed today. Please let me know if you have any questions. ~Brenda Campbell APRN.PRACTICAL NURSING TEACHER [phone] Your Treatment Plan: Letrozole, midcycle ultrasound/labs, trigger shot, IUI x 3- 4 cycles If you are not after 3 cycles, please schedule an appointment with Dr. Arthur. Pending Items on IUI Checklist: IUI Financial Clearance - your chart was sent to the hotel front desk clerk today to start the prior authorization process. Lexia: IUI Procedure consent form - sent to you via [employer] (I forgot to mention this, easy to sign on CRMnext - just says we reviewed the procedure [...] sperm count, please ask your medical team (MD/TEMPERING OVEN OPERATOR/PA) if it is important for you to collect on site. If you live more than 2 hours away, you need to collect on site. Please verify if you intend to collect on site with the manufacturing scheduler. At home: If you live within [...] informed of your IUI date, please call [phone] between 8am [id number] to schedule your appointments. Inseminations are done by appointment only. You will schedule an appointment for sperm drop off/collection, and an appointment for the IUI procedure. IUI is available at the following locations: [facility]: [address] [place] [address] Wednesday - Wednesday, /partner IUI only. On the day of your IUI the collection, drop off is the 2nd floor Urology/Andrology. The sperm wash takes 60-90 minutes. supervisory training specialist the sample from 2nd floor Urology and bring it up to 3rd floor OB specialties. Check in at the 3rd floor Gynecology desk for the insemination. [place]: [address] [facility], [address] [place] [address] Available for /partner IUI and donor sperm IUI. Available every day, including weekends and holidays (except [place] and New Years.) The sperm wash takes 60-90 minutes. Check in at [address] [facility] for collection/drop off and for IUI. Weekend/Holiday IUI Scheduling If for some reason, you weren t able to schedule your IUI during normal business hours, please [phone] between 8am and 12pm. If you call [...] want to do another IUI: Call the hotel front desk clerk to make sure you are financially cleared. Ask to speak to an OZIEL to confirm your treatment plan. Important phone number: [phone] Intrauterine Insemination Fact Sheet From the Patient Education Website of the [place] [employer] Intrauterine insemination (IUI) [...] be thawed later and used for IUI. Third-democrat reproduction. IUI is used when couples use [...] health topics, visit www.ReproductiveFacts.org documented in this encounterLancaster Municipal Hospital11-18-2024 NoteHNO ID: [id number] Author: SARA CAMPBELL APRN.CNP Service: ? Author [...] visit. Either the patient or their legal national account representative has been informed of the risks and benefits of -- and alternatives to -- treatment through a remote evaluation and consents to proceed with the evaluation remotely. Reason for visit: IUI Teach [facility] Primary DANIEL Physician: Dr. Sandhya SANCHEZ [...] ASRM IUI Patient Fact Sheet Sent via CRMnext [x] [] [] IUI Consent Form [x] [...] Count Sperm M 514.75 % Motile Sperm (%[place] + %TEMPERING OVEN OPERATOR) >=40 % 82 Forward Progression 4 = [...] Pending items: annual exam Information sent via CRMnext. Patient and partner to complete checklist and schedule IUI Clearance appointment. Sara Campbell APRN.PRACTICAL NURSING TEACHER January 03, 2024 8:15 AM I spent a total of 40 minutes on the date of the service which included preparing to see the patient, slil-go-wqcf patient care, completing clinical documentation, obtainin (more content not included)...[facility] 01-03-2024 History of Present illness Narrative* Sara Campbell APRN.CNP - 01/03/2024 8:15 AM EST Images from [...] visit. Either the patient or their legal national account representative has been informed of the risks and benefits of -- and alternatives to -- treatment through a remote evaluation andconsents to proceed with the evaluation remotely. Reason for visit: IUI Teach [facility] Primary DANIEL Physician: Dr. Sandhya SANCHEZ [...] ASRM IUI Patient Fact Sheet Sent via CRMnext [x] [] [] IUI Consent Form [x] [...] Count Sperm M 514.75 % Motile Sperm (%[place] + %TEMPERING OVEN OPERATOR) >=40 % 82 Forward Progression 4 = [...] Pending items: annual exam Information sent via [employer]. Patient and partner to complete checklist and schedule IUI Clearance appointment. Sara Cmapbell APRN.CNP January 03, 2024 8:15 AM I spent a total of 40 minutes on the date of the service which included preparing to see the patient, fryt-kv-weuy patient care, completing clinical documentation, obtaining and/or [...] errors missed in proofreading. documented in this encounterLancaster [facility] Hospital11-07-2024 NoteHNO ID: [id number] Author: JESSICA ORTEGA MD Service: ? Author Type: Physician Type: Progress Notes Filed: 12/23/2023 07:30 Note Text: Patient is here for ultrasound. Please see image section in [facility] for results. Julianne River [facility]11-07-2024 History of Present illness Narrative* Jessica Ortega MD - 12/23/2023 7:29 AM EST Patient is here for ultrasound. Please see image section in [facility] for results. Julianne River MD documented in this encounterLancaster Municipal Hospital11-06-2024 NoteHNO ID: [id number] Author: SARA CAMPBELL APRN.CNP Service: ? Author Type: Nurse Practitioner Type: Procedures Filed: 12/23/2023 07:30 Note Text: Danelle Guido is a 23 year old here for SIS. Referred by: Barbara Matos [address] [place], [place] [id number] Chief Complaint: SIS LMP: Patient's last menstrual [...] See ViewPoint for procedure results. Julianne River [facility]11-06-2024 Procedure note* Sara Campbell APRN.CNP - 12/22/2023 9:59 PM EST Danelle Guido is a 23 year old here for SIS. Referred by: Barbara Matos [address] [place], [place] [id number] Chief Complaint: SIS LMP: Patient's last menstrual [...] ViewPoint for procedure results. Julianne River MD [facility]11-06-2024 Procedure note* Sara Campbell APRN.CNP - 12/22/2023 9:59 PM EST Danelle Guido is a 23 year old here for SIS. Referred by: Barbara Matos [address] [place] [address] Chief Complaint: SIS LMP: Patient's last menstrual [...] results. Julianne River MD documented in this encounterLancaster Municipal Hospital10-29-2024 Instructions* Patient Instructions* Marina Arthur MD - 12/14/2023 8:58 AM EDT Thank you for visiting the [facility]. Our team looks forward to providing you with excellent care to help you achieve your family goals. The best way to contact me is by Mikaela. Important phone numbers: [facility] main line: [phone]. Wednesday-Wednesday 8 AM - 4:30 PM. This number is for questions or scheduling related to your fertility treatments. For patients wanting to schedule surgery or questions related to your surgery call [phone]. After hours emergency only Physician line: [phone] For patients needing to create a medical record/chart for partner: [phone] 2. The following are next steps: - Labs are ordered for you for any [facility]. - Sonohysterosalpingography (also called saline [...] your period ends but beforeovulation). Please call [phone] when your period starts to schedule your [...] bharath virtual visit. Please call to schedule: [phone] 3. Follow up visit: 6-[address] Arthur (may be virtual). Please call number above to schedule. documented in this encounterLancaster Municipal Hospital10-29-2024 Plan of care note* DANIEL Plan [...] None Comments: None Marina Arthur MD 12/14/2023 [facility]10-29-2024 Miscellaneous Notes* DANIEL Plan Note - [...] Marina Arthur MD 12/14/2023 documented in this encounterLancaster Municipal Hospital10-28-2024 NoteHNO ID: [id number] Author: MARINA ARTHUR MD Service: ? Author [...] PCOS. Sought initial evaluation for fertility with service order expediter in [place]. Had HSG done a few months ago, told normal. No recent ultrasound done. had semen analysis that was within normal limits. Biochemical x1 in 05/2023. Has done 5 cycles of clomid/+OPK/TIC. 50 x 4 cycles -> 100. Past Medical History: PAST MEDICAL HISTORY Diagnosis Date Anemia Female infertility Insulin resistance Past Surgical History: History reviewed. No pertinent surgical history. OB History: 06/2023 Biochemical LEGAL SUPPORT ANALYST History: Menstrual cycle pattern: Regular periods (25-34 [...] Units 3 wk ago Date of Analysis 10 Semen Volume >=1.50 mL 2.90 pH, Semen >=7.2 7.6 Color, Semen Jeffers Opalescent Semen Viscosity Normal Sperm Concentration >=15.00 M/mL 177.50 Total Sperm Count M 514.75 % Motile Sperm (%[place] + %TEMPERING OVEN OPERATOR) >=40 % 82 Forward Progression 4 = [...] or more miscarria (more content not included)... [facility] History of Present illness Narrative* Marina Arthur [...] PCOS. Sought initial evaluation for fertility with service order expediter in [place]. Had HSG done a few months ago, told normal. No recent ultrasound done. had semen analysis that was within normal limits. Biochemical x1 in 05/2023. Has done 5 cycles of clomid/+OPK/TIC. 50 x 4 cycles -> 100. Past Medical History: PAST MEDICAL HISTORY Diagnosis Date Anemia Female infertility Insulin resistance Past Surgical History: History reviewed. No pertinent surgical history. OB History: 06/2023 Biochemical LEGAL SUPPORT ANALYST History: Menstrual cycle pattern: Regular periods (25-34 [...] Units 3 wk ago Date of Analysis 10.2.24 Semen Volume >=1.50 mL 2.90 pH, Semen >=7.2 7.6 Color, Semen Jeffers Opalescent Semen Viscosity Normal Sperm Concentration >=15.00 M/mL 177.50 Total Sperm Count M 514.75 % Motile Sperm (%[place] + %TEMPERING OVEN OPERATOR) >=40 % 82 Forward Progression 4 = [...] such as sickle cell, kidney disease or [place] disease. No history of stillbirth or three [...] None Comments: None - SONOHYSTEROGRAPHY (SIS) US I - HEMOGLOBIN A1C 2. Fertility testing - ICD9: V26.21, ICD10: Z31.41 - SONOHYSTEROGRAPHY (SIS) US I - WHIIVF ANTI MULLERIAN HORMONE 3. Procreative [...] which included preparing to see the patient, mrma-qz-aowz patient care, completing clinical documentation, obtaining and/or [...] errors missed in proofreading. documented in this encounterLancaster [facility] Hospital09-04-2024 History of Present illness Narrative* Anette [...] oncology re elevated platelets and WBC's. The retirement officer sent her to rheumatology as VANDANA was [...] 20 min Stress: Stress Concern Present (10/19/2023) [employer] [place] [employer] - Occupational Stress Questionnaire Feeling of Stress : Very much Social Connections: Moderately Integrated (10/19/2023) Social Connection and Isolation Panel [NHANES] Frequency of Communication with Friends and Family: Twice a week Frequency of Social Gatherings with Friends and Family: Once a week Attends Christian Services: More than 4 times per year [...] meals., Disp: 90 tablet, Rfl: 11 Vit w/Ev-Uwghakuna-CD (PNV PO), Take by mouth, Disp: , Rfl: documented in this encounterCarondelet [id number] Hospital Discharge instructions Patient Education 02/11/2023 10:31:02 [...] include: ?8 oz (237 mL) of milk, hnmukmf-pauwciqdrbje-txbpz milk, and calcium- fortifiedfruit juice. Calcium-fortified means [...] ?Spinach (cooked), rhubarb, beets, sweet potatoes, and Ghanaian chard. ?Peanuts. ?Potato chips, burkinan fries, and baked potatoes with skin on. ?Nuts and nut products. ?Chocolate. If you regularly take a diuretic medicine, make sure to eat at least 1 or 2 servings of fruits or vegetables that are high in potassium each day. These include: ?Avocado. ?Banana. ?[place], prune, carrot, or tomato juice. ?Baked potato. [...] magnesium, fish oil, or vitamin B6. Take vcim-qop-rqqrsgx and prescription medicines only as told by [...] Casseroles. Pizza. Lasagna. Frozen meals. Potato chips. Samoan fries. The items listed above may not [...] provider. Document Revised: 05/14/2022 Document Reviewed: 05/14/2022 [employer] Patient Education 2022 [employer]. 02/11/2023 10:19:31 Dietary Guidelines to Help Prevent [...] include: ?8 oz (237 mL) of milk, sicmkac-zbgxahnuxhex-yssvt milk, and calcium- fortifiedfruit juice. Calcium-fortified means [...] ?Spinach (cooked), rhubarb, beets, sweet potatoes, and Ghanaian chard. ?Peanuts. ?Potato chips, burkinan fries, and baked potatoes with skin on. ?Nuts and nut products. ?Chocolate. If you regularly take a diuretic medicine, make sure to eat at least 1 or 2 servings of fruits or vegetables that are high in potassium each day. These include: ?Avocado. ?Banana. ?[place], prune, carrot, or tomato juice. ?Baked potato. [...] magnesium, fish oil, or vitamin B6. Take jjfy-mce-qkgfzzz and prescription medicines only as told by [...] Casseroles. Pizza. Lasagna. Frozen meals. Potato chips. Samoan fries. The items listed above may not [...] provider. Document Revised: 05/14/2022 Document Reviewed: 05/14/2022 [employer] Patient Education 2022 [employer]. Follow Up Care 01/29/2023 15:46:11 With:Willy WARNER, Mirna Manuel, URL, URO Address: When:Within 6 Month(s) Comments:[place] and MILAGROS [facility] 11-03-2021 Evaluation note* Encounter Date Diagnosis Assessment Notes Treatment Notes Treatment Clinical Notes Dec, Irritable bowel syndrome with di arrhea (ICD-10 - K58.0) Continue Dicyclomine prn. Pt to call if symptoms worsen or return. Follow up in 1 year. [employer] Other Evaluation + Plan note Future Appointments Appointment Date:09/10/2023 09:00:00 AM Scheduled Provider:Mirna Aguilera MD Location:Critical access hospital Appointment Type:URO Office Visit [facility] evaluation + Plan note Future Appointments Appointment Date:09/10/2023 09:00:00 AM Scheduled Provider:Mirna Aguilera MD Location:Critical access hospital Appointment Type:URO Office Visit Diagnostic Tests Pending * Calculi Analysis [facility] Work Phone: evaluation note* Diagnosis Onset Date Resolution Status Leukocytosis acuteLeukocytosisacute [facility] Work Phone: evaluation note* Diagnosis Onset Date Resolution Status Leukocytosis acuteIron deficiencyacuteLeukocytosisacutePositive VANDANA (antinuclear antibody) [facility] Work Phone: evaluation note* Diagnosis Onset Date Resolution Status Iron deficiency acuteLeukocytosisacutePositive VANDANA (antinuclear antibody)[facility] Work Phone: Evaluation note* Diagnosis Female infertility- Primary Female infertility [...] Irregular menstrual cycle documented in this encounter [facility]* Diagnosis Fertility testing- Primary Pre-procedural laboratory examination [facility]* Diagnosis Female infertility- Primary Female infertility of unspecified origin documented in this encounter [facility]* Diagnosis Treatment plan provided- Primary documented in this encounter [facility]* Diagnosis Positive test- Primary examination or test, positive result documented [facility]* Diagnosis Encounter for supervision of normal first in first trimester Encounter for drug screening examination or test, unconfirmed documented [facility]* Diagnosis Early stage of - Primary state, incidental [facility]* Diagnosis Early stage of state, incidental documented in this encounter [facility] note* Diagnosis Depression, unspecified depression type (CMS/HCC)- Primary Mixed anxiety and depressive disorder Dysthymic disorder Panic disorder (CMS/HCC) Panic disorder without agoraphobia PMDD (premenstrual dysphoric disorder) (CMS/HCC) Premenstrual tension syndromes documented [facility]* Diagnosis Onset Date Resolution Status Admit Date Iron deficiency acuteJanuary 2024 2:48pmLeukocytosisacuteJanuary 2024 2:48pmPositive VANDANA (antinuclear antibody)acuteJanuary 2024 2:48pmPregnancyacuteJanuary 2024 2:48pm [facility] Work Phone: Evaluation note* Diagnosis PCOS (polycystic ovarian syndrome)- Primary Polycystic ovaries documented [facility] this encounter [facility]* Diagnosis 12 weeks gestation of Screening for malignant neoplasm of cervix Screening for malignant neoplasm of the cervix Screen for sexually transmitted diseases Screening examination for venereal disease Genetic screening Other genetic screening [facility]* Diagnosis 16 weeks gestation of documented [...] gestation of (HHS-HCC) screening for streptococcus B (HHS-HCC) screening for Streptococcus B documented in this [...] and vulvovaginitis [facility] Diagnosis care and examination (HHS-HCC) documented [facility] encounter [facility] HealthcareHistory general Narrative - Reported* Type Description Date Medical History anxiety [employer] Other Hospital course Narrative No data available for this section [facility] Discharge instructions Additional Instructions Strain all your urine Zofran for nausea vomiting Manvel for severe pain You cannot work or drive when taking Manvel Tylenol Motrin for minor pain Take antibiotic as instructed until gone Flomax daily Follow urology call tomorrow for appointment Please return here if you have any increased pain, fevers, chills or any other concernOhio[facility] Work Phone: Hospital Discharge instructions No data available for this section [facility] Additional Instructions Continue to monitor blood pressures at home. Call office or Labor if Blood pressures are consistently elevated greater than 140/90. RX for Keflex to be sent to the pharmacy.[facility] Work Phone: Progress note No data available for this section [facility] [place] Progress note Author Pippa Lane [facility] HospitalNote Date/TimeJanuary 2024 3:39pm [facility] [place] [address] Cancer Center Note Signed Patient: Daenlle Guido MR#: [id number] : 2000 Acct:[id number] Age/Sex: 23 / F Type: REG AMB [...] panel were all negative. Rheumatoid factor and ADIA were normal. 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 Patient Instructions: cbc,cmp,iron,b12 3months follow up 3 [...] hepatitis panel were all negative. Rheumatoid factorand ADIA were normal. She denies any abdominal pain [...] other concerns voiced at time of intake. [facility] Medical History Medical History (Updated 02/23/24 @ 15:[address] MD) Positive VANDANA (antinuclear antibody) Iron deficiency Leukocytosis PMDD (premenstrual dysphoric disorder) Ovarian cyst IBS (irritable bowel syndrome) Mixed anxiety and depressive disorder Insomnia Hyperlipidemia Diarrhea Problem List clean-up per [facility] Surgical History Surgical History No pertinent past surgical history Problem List clean-up [facility] Family History Family History (Updated 06/26/20 @ 07:46 by Bethanie Baca RN) Grandparent Colon cancer Hypertension High cholesterol Father Hypertension High cholesterol Family/Other Hypertension High cholesterol Family/Other High cholesterol Grandparent High cholesterol Father Hypertension Social History Social History (Updated 07/14/23 @ 14:26 by Karyna Patino [facility]) Smoking status: Never smoker Within [...] 02/14/24 11:02/14/24 Hct 39.3 % (34.0-46.4) 02/14/24 11:22 02/14/24 MCV 87.8 fl (80-100) 02/14/24 11:02/14/24 RDW 12.6 % (11.9-15.3) 02/14/24 11:22 02/14/24 Plt Count 422 x10E3/uL (150-450) 02/14/24 11:22 02/14/24 Iron 76 ug/dL (50-212) 02/14/24 11:22 02/14/24 Iron Saturation 17.1 % (20-50) L 02/14/24 11:22 02/14/24 Ferritin 52.7 ng/mL (11.0-306.8) 02/14/24 11: 4 Dictated By: Pippa Lane MD DD/ [id number] Signed By: <Electronically signed by Pippa Lane MD> 02/23/24 [address] [facility] Work Phone: Reason for referral (narrative)* Diagnostic Procedure Only (Routine) - AuthorizedSpecialtyDiagnoses / ProceduresReferred By Contact [facility]erred To [facility] Diagnoses Fertility testing Procedures SONOHYSTEROGRAPHY (SIS) US WHI SALINE INFUS SONOHYSTEROGRAPHY W/COLOR DOPPLER CATH & SALINE/CONTRAST SONOHYSTER/[place] [id number] [place] [address] Referral IDStatusReasonStart DateExpiration DateVisits RequestedVisits [id number] Benefit Check * Diagnostic Procedure Only (Routine) - OpenSpecialtyDiagnoses / Procedures Referred By ContactReferred To [facility]RE[facility] Diagnoses Female infertility Procedures SONOHYSTEROGRAPHY (SIS) US WHI SALINE INFUS SONOHYSTEROGRAPHY W/COLOR DOPPLER Barbara Matos MD [address] [place] [address] [place] [address] Referral IDStatusReasonStart DateExpiration DateVisits RequestedVisits [id number] Auto-Generated Referral [facility] for referral (narrative)* Diagnostic Procedure Only (Routine) - New RequestSpecialtyDiagnoses / ProceduresReferred By Contact Referred To [facility] Diagnoses Early stage of Procedures OBSTETRIC ULTRASOUND WHI US PREG UTERUS AFTER 1ST TRIMEST GESTATION Sara Campbell APRN.CNP [id number] [place] [address] Referral IDStatusReasonStart DateExpiration DateVisits RequestedVisits [id number] Request Auto-Generated Referral [facility] for [facility] (narrative)No reason for referral information availableOhiohealth [facility] Work Phone: Reason for visit Narrative* Diagnostic Procedure Only (Routine) - ClosedSpecialtyDiagnoses / ProceduresReferred By ContactReferred To [facility]RE[facility] Diagnoses Early stage of Procedures OBSTETRIC ULTRASOUND WHI US PREG UTERUS AFTER 1ST TRIMEST GESTATION Sara Campbell, MIXER MACHINE FEEDER.PRACTICAL NURSING TEACHER [address] [place] [address] [facility] [address] [place] [address] Referral IDStatusReasonStart DateExpiration DateVisits RequestedVisits [id number] Auto-Generated Referral / [facility] Narrative* Maternity Services (Routine) - ClosedSpecialtyDiagnoses / ProceduresReferred By ContactReferred To Contact [facility]ne[facility] Diagnoses Encounter for supervision of normal first , first trimester Procedures Please check global maternity benefits TORRES 09/17/24 Mandy Patel, DO [address] [place] [address] Phone: tel: fax: Mandy Patel, DO [address] [place] [address] Phone: tel: fax: Referral IDStatusReasonStart DateExpiration DateVisits RequestedVisits [id number] Other / [facility] Healthcare Summary Purpose Family History Relationship Condition Age at Onset Recorded Date/T yifan grandparent Malignant neoplasm of colon Unknown HypertensionUnknownHigh blood cholesterolUnknownfatherHypertensionUnknownfamily memberHypertensionUnknownfamily memberHigh blood cholesterolUnknowngrandparent High blood cholesterolUnknown Relationship Condition Age at Onset Recorded Date/T yifan grandparent Malignant neoplasm of colon Unknown High blood cholesterolUnknownHypertensionUnknownfatherHigh blood cholesterol Unknownfamily memberHigh blood cholesterolUnknowngrandparentHigh blood cholesterolUnknownfatherHypertensionUnknownmotherPolycystic ovary syndrome Unknown Advance Directives Advance Directive Response Recorded Date/ Time Advance Directives No May 22 9:54am Advance Directive Response Recorded Date/ Time Advance Directives No May 22 10:54am Chief Complaint and Reason for Visit Chief Complaint J40 Chief Complaint rt side pain Chief Complaint leukocytosis NEW - Leukocytosis Chief Complaint NEW - Leukocytosis leukocytosis Follow UpReason for VisitLeukocytosis Leukocytosis Chief Complaint NEW - Leukocytosis leukocytosis Follow Up e34.9Reason for VisitLeukocytosis Iron deficiency Leukocytosis Positive VANDANA (antinuclear antibody) Chief Complaint NEW - Leukocytosis leukocytosis Follow Up e34.9 N97.0Reason for VisitLeukocytosis Iron deficiency Leukocytosis Positive VANDANA (antinuclear antibody) Chief Complaint NEW - Leukocytosis leukocytosis Follow Up e34.9 N97.0 N97.0Reason for VisitLeukocytosis Iron deficiency Leukocytosis Positive VANDANA (antinuclear antibody) Chief Complaint leukocytosis Follow Up e34.9 N97.0 N97.0 R76.0 n97.0Reason for VisitIron deficiency Leukocytosis Positive VANDANA (antinuclear antibody) Chief Complaint Admit Date Follow Up February 23, 2024 2: 48pm leukocytosis February 23, 2024 3: 07pm Reason for Visit Admit Date Iron deficiency February 23, 2024 2: 48pm Leukocytosis February 23, 2024 2: 48pm Positive VANDANA (antinuclear antibody) Enrico lorena 2024 2:48pm February 23, 2024 2: 48pm [...] z13.1 June 24, 2024 7:19a m leukocytosis May 13th, 2025 7:51a m 28 wks rt side pain [...] 01, 2024 1:54pm Chief Complaint Admit Date z13.June 24, 2024 7:19a m 28 wks rt [...] pm 092.4 September 14, 2024 1:42 pm Chief Complaint Admit Date sore throat July 22, 2024 9:17a m Follow Up 10 Weeks August 03, 2024 1:49 pm leukocytosis August 03, 2024 1:50 pm Z36.85 August 25, 2024 10:3 0am High Blood Pressure - 37 wks September 01, 2024 1:54pm 38 weeks iup/contractions September 08 9:06pm z39.1 September 12, 2024 1:11 pm 092.4 September 14, 2024 1:42 pm Unknown October 02, 2024 7: 45pm Chief Complaint Admit Date Z36.85 August 25, 2024 10:3 0am High Blood Pressure - 37 wks September 01, 2024 1:54pm 38 weeks iup/contractions September 08 9:06pm z39.1 September 12, 2024 1:11 pm 092.4 September 14, 2024 1:42 pm Unknown October 02, 2024 7: 45pm Follow Up 10 Weeks needs lab work Octobe r 2024 10:48am leukocytosis November 15, 2024 10 :50am Reason for Visit Admit Date 38 weeks gestation of August 9:06pm Status post vaginal delivery September 08, 2024 9:06pm Acquired iron deficiency ane mary due to increased iron requirement November 15, 2024 10:48am Leukocytosis November 15, 2024 10 :48am Positive VANDANA (antinuclear antibody) Octo 2024 10:48am November 15, 2024 10 :48am Additional Source Comments INFORMATION SOURCE (unrecogn ized section and content) DATE CREATED AUTHOR 11/27/2019 [facility] DATE CREATED AUTHOR AUTHOR'S ORGANIZ ATION 03/18/2022 [facility] DATE CREATED AUTHOR AUTHOR'S ORGANIZ ATION 03/04/2024 [facility] DATE CREATED AUTHOR AUTHOR'S ORGANIZ ATION 10/05/2024 [facility] DATE CREATED AUTHOR AUTHOR'S ORGANIZ ATION 10/13/2024 [facility] DATE CREATED AUTHOR AUTHOR'S ORGANIZ ATION 10/14/2024 [facility] DATE CREATED AUTHOR AUTHOR'S ORGANIZ ATION 10/21/2024 [facility] DATE CREATED AUTHOR AUTHOR'S ORGANIZ ATION 11/19/2024 [facility] REASON FOR VISIT (unrecogniz ed section and content) ReasonCommentsSISSpecialtyDiagnoses / ProceduresReferred By ContactReferred To [facility] Diagnoses Fertility testing Procedures SONOHYSTEROGRAPHY (SIS) US WHI SALINE INFUS SONOHYSTEROGRAPHY W/COLOR DOPPLER CATH & SALINE/CONTRAST SONOHYSTER/[place] [address] [place] [address] [place] [address] Referral IDStatusReasonStart DateExpiration DateVisits RequestedVisits [id number] Benefit Check [id number] TeachReasonCommentsInitial VisitReasonCommentsPregnancyReasonCommentsAnxietyDepressionReasonCommentsPCOS ReasonOnset DateCommentsMed Vppwdn4308/02/2024ReasonOnset DateCommentsMed Refill 08/28/2024ReasonCommentsNon-stress TestReasonCommentsPostpartum CarePt presents to discuss Anxiety/depression. Pt states when she is away from baby will be anxious. Pt will become tearful randomly. No thoughts of hurting herself or others. Pt currently on Zoloft for anxiety/depression. Pt states getting some sleep.ReasonCommentsPostpartum Care09/09/24 . Denies vaginal bleeding/spotting. Denies bowel/bladder concerns. Pt is ,going well. Pt declines control at this time. Denies intercourse. Denies PP depression. Care Teams (unrecognized sec tion and content) Team Status: Active Member Role Status Dates Moe Mcmillan DO Primary Care Provider Active Team Status: Inactive Member Role Status Dates Moe Mcmillan DO Primary Care Provider Active Start: February 23, 2024 End: February 23, 2024Jong Silva ProviderActiveStart: February 23, 2024 End: February 23, 2024 Team Status: Active Member Role Status Dates Moe Mcmillan DO Primary Care Provi rosa, Referring Provider Active Start: February 23, [address] MDAttending ProviderActiveStart: February 23, 2024 Team Status: Active Member Role Status Dates Moe Mcmillan DO Primary Care Provi rosa, Referring Provider Active Start: August 04, [address] MDAttending ProviderActiveStart: August 04, 2023 Team Status: Inactive Member Role Status Dates Moe Mcmillan DO Primary Care Provider Active Start: August 04, 2023 End: August 04, 2023ol[address] MDAttending ProviderActiveStart: August 04, 2023 End: August 04, 2023 Team Status: Inactive Member Role Status Dates Moe Mcmillan DO Primary Care Provider Active Start: August 07, 2023 End: August 07, 2023Mandy Patel DOAttending ProviderActiveStart: August 07, 2023 End: August 07, 2023 Team Status: Inactive Member Role Status Dates Moe Mcmillan DO Primary Care Provider Active Start: September 04, 2023 End: September 04, 2023Katvamsi Patel DOAttending ProviderActiveStart: September 04, 2023 End: September 04, 2023 Team Status: Inactive Member Role Status Dates Moe Alok DO Deyanira Primary Care Provider Active Start: September 16, 2023 End: September 16, 2023Katvamsi Patel , DOAttending ProviderActiveStart: September 16, 2023 End: September 16, 2023 Team Status: Inactive Member Role Status Dates Moe Alok DO Deyanira Primary Care Provider Active Start: September 27, 2023 End: September 26[facility] Phoebe MDAttending ProviderActiveStart: September 27, 2023 End: September 27, 2023 Team Status: Inactive Member Role Status Dates Moe Mcmillan DO Primary Care Provider Active Start: November 01, 2023 End: November 01, 2023Katvamsi Patel , DOAttending ProviderActiveStart: November 01, 2023 End: November 01, 2023 Team Status: Inactive Member Role Status Dates Moe Mcmillan DO Primary Care Provi rosa, Referring Provider Active Start: July 14, 2023 End: July 14, 2023Mhd Pradip Lane , FREDttending ProviderActiveStart: July 14, 2023 End: July 14, 2023 Team Status: Active Member Role Status Dates Moe Mcmillan DO Primary Care Provi rosa, Referring Provider Active Start: July 14, [address] , MDAttending ProviderActiveStart: July 14, 2023 Team Status: Inactive Member Role Status Dates Moe Mcmillan DO Primary Care Provider, Attending Provider Active Team Status: Inactive Member Role Status Dates Moe Mcmillan DO Primary Care Provider Active Myranda Cornelius ProviderActiveTeam MemberRelationshipSpecialty Start DateEnd Date Anette Mcmillan DO [address] [facility] [address] [place] [address] [facility] - [facility] Anette Mcmillan DO [address] [place] [address] PCP - [employer]05/16/21Team MemberRelationshipSpecialtyStart DateEnd Date Anette Mcmillan, DO [address] [place] [address] PCP - [facility]07/16/22Team MemberRelationshipSpecialtyStart DateEnd Date Anette Mcmillan, DO [address] [place] [address] PCP - [facility]07/16/22Team MemberRelationshipSpecialtyStart DateEnd Date Anette Mcmillan, DO [address] [place] [address] [facility]/16/22 Anette Mcmillan, DO [address] [place] [address] PCP - [employer]05/16/21Team MemberRelationshipSpecialtyStart DateEnd Date Anette Mcmillan, DO [address] [place] [address] PCP - [facility]07/16/22 Anette Mcmillan, DO [address] [place] [address] PCP - [employer]05/16/21Team MemberRelationshipSpecialtyStart DateEnd Date Anette Mcmillan, DO [address] [place] [address] [facility] - [facility]07/16/22 Anette Mcmillan, [address] [place] [address] PCP - [employer]05/16/21Team MemberRelationshipSpecialtyStart DateEnd Date Anette Mcmillan, [address] [place] [address] PCP - [facility]07/16/22 Anette Mcmillan, [address] [place] [address] PCP - [employer]05/16/21Team MemberRelationshipSpecialtyStart DateEnd Date Anette Mcmillan, [address] [place] [address] PCP - [facility]07/16/22 Anette Mcmillan, [address] [place] [address] PCP - [employer]05/16/21 Team Status: Inactive Member Role Status Dates Moe Mcmillan DO Primary Care Provider Active Start: May 25, 2024 End: May 25, 2024Jong Silva ProviderActiveStart: May 25, 2024 End: May 25, 2024 Team Status: Active Member Role Status Dates Moe Mcmillan DO Primary Care Provi rosa, Referring Provider Active Start: June 20, [address] MDAttshantanu ProviderActiveStart: June 20, 2024 Team Status: Inactive Member Role Status Dates Moe Mcmillan DO Primary Care Provider Active Start: June 24, 2024 End: June 24, 2024Mandy Patel DOAttending ProviderActiveStart: June 24, 2024 End: June 24, 2024Team MemberRelationshipSpecialtyStart DateEnd Date Anette Mcmillan DO [address] [place] [address] PCP - [facility]07/16/22 Anette Mcmillan DO [address] [place] [address] PCP - [employer]05/16/21 Team Status: Active Member Role Status Dates Moe Mcmillan DO Primary Care Provi rosa, Referring Provider Active Start: June 27, 2024 Jong Vieira ProviderActiveStart: June 27, 2024 Team Status: Inactive Member Role Status Dates Moe Mcmillan DO Primary Care Provider Active Start: July 01, 2024 End: July 02, 2024Jong Garrison ProviderActiveStart: July 01, 2024 End: July 02, 2024 Team Status: Inactive Member Role Status Dates Moe Mcmillan DO Primary Care Provider Active Start: July 22, 2024 End: July 22, 2024Myranda Willis ProviderActiveStart: July 22, 2024 End: July 22, 2024Team MemberRelationshipSpecialtyStart DateEnd Date Anette Mcmillan DO [address] [place] [address] PCP - [facility]07/16/22 Anette Mcmillan DO [address] [place] [address] PCP - [employer]05/16/21Team MemberRelationshipSpecialtyStart DateEnd Date Anette Mcmillan DO [address] [place] [address] PCP - [facility]07/16/22 Anette Mcmillan DO [address] [place] [address] PCP - [employer]05/16/21 Team Status: Inactive Member Role Status Dates Moe Mcmillan DO Primary Care Provider Active Start: August 03, 2024 End: August 03, 2024Mhd Pradip De La O-Leonides , MDAttending ProviderActiveStart: August 03, 2024 End: August 03, 2024 Team Status: Active Member Role Status Dates Moe Mcmillan DO Primary Care Provider Active Start: August 03, 2024 Rimma Poon ProviderActiveStart: August 03, 2024 Mhd Pradip De La O-Leonides , MDAttending ProviderActiveStart: August 03, 2024 Team Status: Inactive Member Role Status Dates Mandy Patel DO Attending Provider Active S tart: August 25, 2024 End: August 25, 2024Team MemberRelationshipSpecialtyStart DateEnd Date Anette Mcmillan DO [address] [place] [address] PCP - [facility]07/16/22 Anette Mcmillan DO [address] [place] [address] PCP - [employer]05/16/21Team MemberRelationshipSpecialtyStart DateEnd Date Anette Mcmillan DO [address] [place] [address] PCP - [facility]07/16/22 Anette Mcmillan DO [address] [place] [address] PCP - [employer]05/16/21 Team Status: Inactive Member Role Status Dates Mandy Patel DO Attending Provider Active S tart: August 25, 2024 End: August 25, 2024PHYSICIAN NO FAMILYPrimary Care ProviderActiveStart: August 25, 2024 End: August 25, 2024 Team Status: Inactive Member Role Status Dates Moe Mcmillan DO Primary Care Provider Active Start: September 01, 2024 End: September 01, 2024Corina Hernandez MDAttending ProviderActiveStart: September 01, 2024 End: September 01, 2024Team MemberRelationshipSpecialtyStart DateEnd Date Anette Mcmillan DO [address] [place] [address] PCP [facility]07/16/22 Anette Mcmillan DO [address] [place] [address] PCP - [employer]05/16/21 Team Status: Inactive Member Role Status Dates Moe Mcmillan DO Primary Care Provider Active Start: September 08, 2024 End: September 11, 2024Juan Garrison ProviderActiveStart: September 08, 2024 End: September 11, 2024Corina Hernandez MDAttending ProviderActiveStart: September 08, 2024 End: September 11, 2024 Team Status: Inactive Member Role Status Dates Moe Mcmillan DO Primary Care Provider Active Start: September 12, 2024 End: September 12tmaie Aden MDAttending ProviderActiveStart: September 12, 2024 End: September 12, 2024 Team Status: Inactive Member Role Status Dates Moe Mcmillan DO Primary Care Provider Active Start: September 14, 2024 End: September 14lemaria a Aden MDAttending ProviderActiveStart: September 14, 2024 End: September 14, 2024Team MemberRelationshipSpecialtyStart DateEnd Date Anette Mcmillan, [address] [place] [address] [facility]07/16/22 Anette Mcmillan DO [address] [place] [address] PCP - [employer]05/16/21 Team Status: Inactive Member Role Status Dates Moe Mcmillan DO Primary Care Provider Active Start: October 02, 2024 End: October 02, 2024Melubaldo Schilling , DOAttending ProviderActiveStart: October 02, 2024 End: October 02, 2024 Team Status: Inactive Member Role Status Dates Moe Mcmillan DO Primary Care Provider Active Start: November 15, 2024 End: November 15, 2024Mhd Pradip Lane MDAttending ProviderActiveStart: November 15, 2024 End: November 15, 2024 Team Status: Active Member Role Status Dates Moe Mcmillan DO Primary Care Provider Active Start: November 15, 2024 Rimma Poon ProviderActiveStart: November 15, 2024 Mhd Pradip De La O-Leonides , MDAttending ProviderActiveStart: November 15, 2024 Team MemberRelationshipSpecialtyStart DateEnd Date Anette Mcmillan DO [address] [place] [address] [facility]07/16/22 Anette Mcmillan DO [address] [place] [address] PCP [employer]05/16/21 Goals (unrecognized section and content) Goals may be documented in a n alternate section Source Comments (unrecognize d section and content) In the event this informatio n is protected by the [facility] Confidentiality of Alcohol and Drug Abuse Patient Records regulations: The Federal rules restrict any use of the information to criminally investigate or prosecute any alcohol or drug abuse patient.[facility] the event this information is protected by the Federal Confidentiality of Alcohol and Drug Abuse Patient Records regulations: The Federal rules restrict any use of the information to criminally investigate or prosecute any alcohol or drug abuse patient.[facility] HospitalIn the event this information is protected by the Federal Confidentiality of Alcohol and Drug Abuse Patient Records regulations: The Federal rules restrict any use of the information to criminally investigate or prosecute any alcohol or drug abuse patient.[facility] HospitalIn the event this information is protected by the Federal Confidentiality of Alcohol and Drug Abuse Patient Records regulations: The Federal rules restrict any use of the information to criminally investigate or prosecute any alcohol or drug abuse patient.[facility] ClinicIn the event this information is protected by the Federal Confidentiality of Alcohol and Drug Abuse Patient Records regulations: The Federal rules restrict any use of the information to criminally investigate or prosecute any alcohol or drug abuse patient.[facility] HospitalIn the event this information is protected by the Federal Confidentiality of Alcohol and Drug Abuse Patient Records regulations: The Federal rules restrict any use of the information to criminally investigate or prosecute any alcohol or drug abuse patient.[facility] HospitalIn the event this information is protected by the Federal Confidentiality of Alcohol and Drug Abuse Patient Records regulations: The Federal rules restrict any use of the information to criminally investigate or prosecute any alcohol or drug abuse patient.[facility] HospitalIn the event this information is protected by the Federal Confidentiality of Alcohol and Drug Abuse Patient Records regulations: The Federal rules restrict any use of the information to criminally investigate or prosecute any alcohol or drug abuse patient.[facility] FOR RECORDS PERTAINING TO PATIENTS WHO [...] BE BASED ON THE PRIMARY CLINICAL RECORDS. [facility] [employer] [facility]. provides no warranty or guarantee of the accuracy or completeness of information in this document.
--- NOTE | 2024-12-26 13:35 | XR_ITS ---
[facility] [place] [id number] Patient Name: DANELLE MISTRY MRN: [id number] date: 2000 Sex: F Assigned Patient Location: [facility] Current Patient Location: [facility] Accession/Order Number: [id number] Exam Date: 12/26/2024 13:25 Report Date: 12/26/2024 18:21 At the request of: YVETTE RAINEY DPM Procedure: XR foot AKASH min 3V XR foot AKASH min 3V 12/26/2024 1:37 PM SIGNS AND SYMPTOMS: ^Pain PROTOCOL: Frontal, lateral, and oblique radiographs of the bilateral feet COMPARISON: None FINDINGS: The bones are in anatomic alignment. The joint spaces are preserved. There is no fracture or dislocation. No significant plantar or Achilles surface calcaneal spurring is noted. There is preservation of the arch of the foot. XR/XR foot AKASH min 3V IMPRESSION: No acute bony injury or significant degenerative change. Impression dictated by: Too Espinoza M.D. 12/26/2024 6:21 PM Dictation Location: [employer] Electronically authenticated by: [id number] Y Date: 12/26/2024 18:21
== END 2024-12-26 12:49 | disposition home or self-care (01) ==
PROVIDERS: PCP Urology; Visit Provider Podiatrist Foot & Ankle Surgery
DX: M79.671 Pain in right foot (principal); M79.672 Pain in left foot
CPT/HCPCS: 73630